=== PATIENT | male | born 1935 | race Caucasian/White ===

== ENCOUNTER 2016-12-16 10:44 | Inpatient (IN) | payer MEDICARE, BC ==
[~2016-12-16] VITALS: Ht 172.7 cm; Wt 76.5 kg
[~2016-12-16 10:44] MED LIST: ALLO100T64 PO; AMLO-145 PO; ANAG0.5C; ASPI-535; ATOR10TA65 PO; CHLO25TA13; CHOL20003 PO; CYAN100071 PO; DIGO125T PO; FENO145T25 PO; FOL8 PO; GLYB2.5T PO; LAS20 PO; LEVO50TA83 PO; LOSA100T47 PO; METO100T13 PO; NCN500CCR; PIOG15TA4 PO; PYRI50CA PO; RUXO5TAB PO; [UNRECOGNIZED DRUG - CODE]
[2016-12-16 10:49] VITALS: Ht 172.7 cm; Wt 76.5 kg
[2016-12-16] MEDS ORDERED: ONDANSETRON 4 MG INJ IV STA (11:22)
[2016-12-16] MEDS ORDERED: morphine 4 MG/ML VIAL IV STA (11:22)
[2016-12-16] MEDS ORDERED: SOD CHLORIDE 0.9% 1,000 ML IV STA (11:22)
[2016-12-16 11:50] LABS: ADD SCAN DIFF NO
[2016-12-16 11:55] LABS: ABNORMAL IP MESSAGE 1; HEMATOCRIT 31.7 % (42.0-52.0); HEMOGLOBIN 9.8 g/dl (14.0-18.0); MEAN CORPUSCULAR HEMOGLOBIN 28.7 pg (29.0-33.0); MEAN CORPUSCULAR HGB CONC 30.9 g/dl (32.0-37.0); MEAN PLATELET VOLUME 11.8 fl (7.4-10.4); PLATELET COUNT 322 10^3/UL (140-415); RED BLOOD COUNT 3.41 10^6/ul (4.70-6.10); RED CELL DISTRIBUTION WIDTH 17.2 % (11.5-14.5); WHITE BLOOD COUNT 14.4 10^3/ul (4.8-10.8)
[2016-12-16 12:03] LABS: ALBUMIN 4.5 g/dl (3.3-4.9)
[2016-12-16 12:04] LABS: POTASSIUM 5.3 mmol/L (3.5-5.1)
[2016-12-16 12:06] LABS: ALBUMIN/GLOBULIN RATIO 1.45; BILIRUBIN,INDIRECT 0.1 mg/dl (0-1.1); BILIRUBIN,TOTAL 0.1 mg/dl (0.2-1.3); CREATININE 3.43 mg/dl (0.61-1.24); TOTAL PROTEIN 7.6 g/dl (6.1-8.1)
[2016-12-16] MEDS ORDERED: RUXO5TAB PO (12:54)
[2016-12-16] MEDS ORDERED: CLOP75TA4 PO (12:54)
[2016-12-16] MEDS ORDERED: ATOR20TA38 PO (12:54)
[2016-12-16] MEDS ORDERED: SITA25TA3 PO (12:58)
[2016-12-16] MEDS ORDERED: INSU100C3 SQ (12:58)
[2016-12-16 13:02] LABS: BASOPHIL # 0.3 10^3/ul (0.0-0.1); LYMPHOCYTES # 0.3 10^3/ul (0.8-2.9); MYELOCYTES # 0.3; NEUTROPHIL # 12.7 10^3/ul (1.6-7.5); OVALOCYTES OCCASIONAL; TEAR DROP CELLS OCCASIONAL
[2016-12-16] MEDS ORDERED: DARB10SY IJ (13:03)
[2016-12-16] MEDS ORDERED: NITR0.4T6 SL (13:03)
[2016-12-16] MEDS ORDERED: LEVEM SC (13:03)
--- NOTE | 2016-12-16 14:27 | RADRPT ---
PROCEDURE: CT abdomen and pelvis without contrast. CLINICAL INDICATION: Epigastric pain since last p.m. TECHNIQUE: CT scan of the abdomen and pelvis without contrast was performed on a multislice CT [facility] utilizing axial imaging from the lung bases through the pubis symphysis. The patient was scann ed without intravenous contrast. Sagittal and coronal reformatted images were made. The CTDIvol is 10.31 mGy and the DLP is 617.05 mGycm. One of the following 3 dose reduction techniques were used during this CT examination: automated exp osure control; adjustment of the mA and /or kV according to patient size; or use of iterative recons truciton technique. COMPARISON: Chest CT 07/21/2013 FINDINGS: The lung bases are remarkable for bibasilar discoid atelectasis. A small hiatal hernia is present. T he visualized liver is of normal size and contour. The spleen, pancreas, and bilateral adrenal glan ds are normal. Cholelithiasis is present with the largest gallstone measuring 3 cm in maximum trans verse dimensions. Mild pericholecystic fluid is present and mild abdominal ascites is noted. Recomm end correlation with nuclear medicine height is scanned to further evaluate. No evidence for intra or extrahepatic biliary ductal dilatation is present. The visualized kidneys demonstrate a large right mid pole lesion which measures 4.8 cm AP by 4.4 cm in transverse dimensions most compatible with renal cortical cyst however incompletely evaluated on this noncontrast CT of the abdomen. Consider renal ultrasound to further evaluate. The visualized aorta demonstrates vascular calcifications without aneurysmal dilatation. No evidenc e for pneumoperitoneum is present. The visualized bowel demonstrates mild diverticulosis with mild pericolonic inflammation and fluid a djacent to the left hemicolon and sigmoid colon. Very early acute diverticulitis is not excluded. T he small bowel demonstrates mild small bowel distension measuring a maximum of 3.3 cm. Early or part ial small bowel obstruction may be present and consider follow-up imaging to further evaluate. The The visualized pelvis demonstrates marked distension of the urinary bladder. Mild prostatic enlarge ment is present with a prostate measuring 4.4 cm AP by 4.9 cm in transverse dimensions. Mild pelvic ascites is present.. The surrounding osseous structures are remarkable for laminectomy changes at L2 through L5. Multile brigido severe degenerative endplate and disk desiccation with disk space height loss and vacuum disk ph enomenon is present at the L2-3 through L5-S1 levels. Grade 1 spondylolisthesis of L4 and L5 is pre sent without evidence for spondylolysis.. IMPRESSION: 1. Cholelithiasis with mild pericholecystic fluid which may represent early acute cholecystitis. Co nsider nuclear medicine HIDA Scan to further evaluate. 2. Diffuse small bowel distension with mild abdominal ascites may represent a earlier partial small bowel obstruction and follow-up with additional imaging. 3. Diverticulosis with mild pericolonic fluid and follow for potential mild or early diverticulitis . 4. Mild abdominal and pelvic ascites 5. Status post L2-L5 laminectomy changes with severe degenerative endplate and disk disease and gra de 1 spondylolisthesis of L4 and L5 without spondylolysis. 6. Small hiatal hernia 7. Atherosclerotic vascular disease A call report was made to Dr. Montoya at 12/16/2016 2:19:45 PM following the completion of the examinat ion by the undersigned. RPTAT: HDC .Tari Ferreira MD, MD Date Time Electronically viewed and signed by .Tari Ferreira MD, on 12/16/2016 14:22 .C/
[2016-12-16] MEDS ORDERED: ERTAPENEM SODIUM 1 GM in SOD CHLORIDE 0.9% 100 ML IVPB ONE (15:00)
--- NOTE | 2016-12-16 15:11 | ERA ---
ER Documentation Chief Complaint Date/Time DATE: 12/16/16 TIME: 15:08 Chief Complaint Complains of vomiting HPI This is an 81-year-old male who complains of last night developing some diffuse upper abdominal pain with nausea and vomiting. Vomit has no blood and no bile. No diarrhea. Patient has had a bowel movement. Pain is described as constant and mildly dull but mostly complains of nausea. Says his ate the same food as he did and she is not sick. He has no fever no cough no chest pain or shortness of breath and diaphoresis. He called his primary physician and told him to come into the hospital for evaluation. The patient was seen by Dr. Delgado in in the ER as well ROS All systems reviewed and are negative except as per history of present illness. Medications Home Meds Reported Medications Darbepoetin Magdiel in Polysorbat (Aranesp) 10 Mcg/0.4 Ml Syringe, 5 MCG IJ 3 x a week., SYR 12/16/16 Nitroglycerin* (Nitroglycerin* SL) 0.4 Mg Tab.subl, 0.4 MG SL Q5MIN Y for CHEST PAIN, BOTTLE 12/16/16 Insulin Detemir (Levemir) 100 Unit/1 Ml Vial, 60 UNIT SC DAILY, VIAL 12/16/16 Insulin Aspart (Novolog) 100 Unit/1 Ml Cartridge, 0-12 UNIT SQ sliding scale 12/16/16 Sitagliptin* (Januvia*) 25 Mg Tablet, 25 MG PO DAILY, #30 TAB 12/16/16 Atorvastatin Calcium* (Atorvastatin Calcium*) 20 Mg Tablet, 20 MG PO QHS, #30 TAB 12/16/16 Clopidogrel Bisulfate* (Clopidogrel Bisulfate*) 75 Mg Tablet, 75 MG PO DAILY, # 30 TAB 12/16/16 Ruxolitinib Phosphate (Jakafi) 5 Mg Tablet, 5 MG PO BID, TAB 12/16/16 Metoprolol Succinate* (Toprol XL*) 100 Mg Tab.sr.24h, 100 MG PO DAILY 07/20/13 Digoxin* (Digitek*) 125 Mcg Tablet, 62 MCG PO DAILY 07/20/13 Losartan Potassium* (Cozaar*) 100 Mg Tablet, 100 MG PO DAILY 07/20/13 Amlodipine Besylate* (Amlodipine Besylate*) 5 Mg Tablet, 5 MG PO DAILY 07/20/13 Furosemide (Lasix) 20 Mg Tab, 20 MG PO BID 07/20/13 Allopurinol* (Zyloprim*) 100 Mg Tablet, 100 MG PO TID 07/20/13 Levothyroxine Sodium* (Synthroid*) 50 Mcg Tablet, 50 MCG PO DAILY 07/20/13 Fenofibrate Nanocrystallized* (Tricor*) 145 Mg Tablet, 145 MG PO DAILY 07/20/13 Discontinued Reported Medications Cyanocobalamin (Vitamin B-12) 1,000 Mcg/1 Ml Drops, 1000 MCG PO DAILY 07/20/13 Pyridoxine Hcl* (Vitamin B-6*) 50 Mg Capsule, 100 MG PO DAILY 07/20/13 Folic Acid* (Folic Acid*) 0.8 Mg Tablet, 400 MCG PO DAILY 07/20/13 Cholecalciferol (Vitamin D3) (VITAMIN D-3) 2,000 Unit Capsule, 1000 UNIT PO BID 07/20/13 Pioglitazone Hcl* (Actos*) 15 Mg Tablet, 15 MG PO DAILY 07/20/13 Glyburide* (Diabeta*) 2.5 Mg Tablet, 5 MG PO DAILY 07/20/13 Atorvastatin Calcium (Atorvastatin Calcium) 10 Mg Tab, 10 MG PO DAILY 07/20/13 Ruxolitinib Phosphate (Jakafi) 5 Mg Tablet, 5 MG PO BID 07/20/13 Aspirin Ec (Aspir 81) 81 Mg Tablet. 10/17/10 Darbepoetin Magdiel In Polysorbat (Aranesp) 500 Mcg/Ml Pen.injctr 10/17/10 Anagrelide Hcl* (Anagrelide Hcl*) 0.5 Mg Cap 10/17/10 Chlorthalidone* (Chlorthalidone*) 25 Mg Tablet 10/17/10 Niacin* (Niaspan*) 500 Mg Tablet.sa 10/17/10 Allergies Allergies: Coded Allergies: No Known Allergies (Verified Allergy, Mild, 10/20/10) PMhx/Soc History of Surgery: Yes (SPINAL STENOSIS SURGERY - 2004, CARDIAC BYPASS/STENTS 1993) Anesthesia Reaction: No Hx 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 Disorder: No Hx Respiratory Disorders: No Hx Cardiac Disorders: Yes (CABG IN , STENTS 1999, HTN, HIGH CHOLESTEROL) Hx Psychiatric Problems: No Hx Miscellaneous Medical Probl: Yes (myelofibrosis, vit D deficiency) Hx Alcohol Use: Yes (OCCASIONALLY) Hx Substance Use: No Hx Tobacco Use: Yes Smoking Status: Never smoker FmHx Family History: No coronary disease Physical Exam Vitals Vital Signs Date Time Temp Pulse Resp B/P Pulse Ox O2 Delivery O2 Flow Rate FiO2 12/16/16 10:49 98.2 72 20 135/63 97 Physical Exam Const: Well-developed, well-nourished Head: Atraumatic, normocephalic Eyes: Normal Conjunctiva, PERRLA, EOMI, normal sclera, no nystagmus ENT: Normal External Ears, Nose and Mouth, moist mucus membranes. Neck: Full range of motion. No meningismus, no lymphadenopathy. Resp: Clear to auscultation bilaterally, no wheezing, rhonchi, rales Cardio: Regular rate and rhythm, no murmurs, S1 S2 present Abd: Soft, mild diffuse upper abdominal tenderness, non distended. Normal bowel sounds, no guarding or rebound, no pulsitile abdominal masses or bruits Skin: No petechiae or rashes, no ecchymosis , no maculopapular rash Back: No midline or flank tenderness Ext: No cyanosis, or edema, FROM x 4, normal inspection, neurovascularly intact x 4 Neur: Awake and alert, STR 5/5 x 4, sensation intact x 4, no focal findings, cerebellum intact Psych: Normal Mood and Affect Result Diagram: 12/16/16 1145 12/16/16 1145 Results 24 hrs Laboratory Tests Test 12/16/16 11:45 White Blood Count 14.410^3/ul Red Blood Count 3.4110^6/ul Hemoglobin 9.8g/dl Hematocrit 31.7% Mean Corpuscular Volume 93.0fl Mean Corpuscular Hemoglobin 28.7pg Mean Corpuscular Hemoglobin Concent 30.9g/dl Red Cell Distribution Width 17.2% Platelet Count 04810^3/UL Mean Platelet Volume 11.8fl Neutrophils % 88.0% Band Neutrophils % 2.0% Lymphocytes % 2.0% Basophils % 2.0% Metamyelocytes % 3.0% Myelocytes % 2.0% Promyelocytes % 1.0% Neutrophils # 12.710^3/ul Lymphocytes # 0.310^3/ul Basophils # 0.310^3/ul Metamyelocytes # 0.4 Myelocytes # 0.3 Promyelocytes # 0.1 Differential Comment MANUAL DIFF Tear Drop Cells OCCASIONAL Ovalocytes OCCASIONAL Sodium Level 138mmol/L Potassium Level 5.3mmol/L Chloride Level 96mmol/L Carbon Dioxide Level 29mmol/L Anion Gap 18 Blood Urea Nitrogen 74mg/dl Creatinine 3.43mg/dl Glucose Level 277mg/dl Calcium Level 11.0mg/dl Total Bilirubin 0.1mg/dl Direct Bilirubin 0.00mg/dl Indirect Bilirubin 0.1mg/dl Aspartate Amino Transf (AST/SGOT) 46IU/L Alanine Aminotransferase (ALT/SGPT) 29IU/L Alkaline Phosphatase 29IU/L Total Protein 7.6g/dl Albumin 4.5g/dl Globulin 3.10g/dl Albumin/Globulin Ratio 1.45 Lipase 493U/L Current Medications Medications (Trade) Dose Ordered Sig/Lamont Route PRN Reason Start Time Stop Time Status Last Admin Dose Admin Sodium Chloride (NS) 1,000 ml @ 1,000 mls/hr Q1H STAT IV 12/16/16 11:22 12/16/16 12:21 DC 12/16/16 11:51 Morphine Sulfate (morphine) 4 mg ONCE STAT IV 12/16/16 11:22 12/16/16 11:26 DC 12/16/16 11:52 Ondansetron HCl 4 mg 4 mg ONCE STAT IV 12/16/16 11:22 12/16/16 11:26 DC 12/16/16 11:51 Ertapenem/Sodium Chloride (Invanz/NS) 100 ml @ 200 mls/hr ONCE ONCE IVPB 12/16/16 15:00 12/16/16 15:29 Procedures/MDM PROCEDURE: CT abdomen and pelvis without contrast. CLINICAL INDICATION: Epigastric pain since last p.m. TECHNIQUE: CT scan of the abdomen and pelvis without contrast was performed on a multislice CT scanner utilizing axial imaging from the lung bases through the pubis symphysis. The patient was scanned without intravenous contrast. Sagittal and coronal reformatted images were made. The CTDIvol is 10.31 mGy and the DLP is 617.05 mGycm. One of the following 3 dose reduction techniques were used during this CT examination: automated exposure control; adjustment of the mA and /or kV according to patient size; or use of iterative reconstruciton technique. COMPARISON: Chest CT 07/21/2013 FINDINGS: The lung bases are remarkable for bibasilar discoid atelectasis. A small hiatal hernia is present. The visualized liver is of normal size and contour. The spleen, pancreas, and bilateral adrenal glands are normal. Cholelithiasis is present with the largest gallstone measuring 3 cm in maximum transverse dimensions. Mild pericholecystic fluid is present and mild abdominal ascites is noted. Recommend correlation with nuclear medicine height is scanned to further evaluate. No evidence for intra or extrahepatic biliary ductal dilatation is present. The visualized kidneys demonstrate a large right mid pole lesion which measures 4.8 cm AP by 4.4 cm in transverse dimensions most compatible with renal cortical cyst however incompletely evaluated on this noncontrast CT of the abdomen. Consider renal ultrasound to further evaluate. The visualized aorta demonstrates vascular calcifications without aneurysmal dilatation. No evidence for pneumoperitoneum is present. The visualized bowel demonstrates mild diverticulosis with mild pericolonic inflammation and fluid adjacent to the left hemicolon and sigmoid colon. Very early acute diverticulitis is not excluded. The small bowel demonstrates mild small bowel distension measuring a maximum of 3.3 cm. Early or partial small bowel obstruction may be present and consider follow-up imaging to further evaluate. The The visualized pelvis demonstrates marked distension of the urinary bladder. Mild prostatic enlargement is present with a prostate measuring 4.4 cm AP by 4.9 cm in transverse dimensions. Mild pelvic ascites is present.. The surrounding osseous structures are remarkable for laminectomy changes at L2 through L5. Multilevel severe degenerative endplate and disk desiccation with disk space height loss and vacuum disk phenomenon is present at the L2-3 through L5-S1 levels. Grade 1 spondylolisthesis of L4 and L5 is present without evidence for spondylolysis.. IMPRESSION: 1. Cholelithiasis with mild pericholecystic fluid which may represent early acute cholecystitis. Consider nuclear medicine HIDA Scan to further evaluate. 2. Diffuse small bowel distension with mild abdominal ascites may represent a earlier partial small bowel obstruction and follow-up with additional imaging. 3. Diverticulosis with mild pericolonic fluid and follow for potential mild or early diverticulitis. 4. Mild abdominal and pelvic ascites 5. Status post L2-L5 laminectomy changes with severe degenerative endplate and disk disease and grade 1 spondylolisthesis of L4 and L5 without spondylolysis. 6. Small hiatal hernia 7. Atherosclerotic vascular disease A call report was made to Dr. Montoya at 12/16/2016 2:19:45 PM following the completion of the examination by the undersigned. RPTAT: HDC .Tari Ferreira MD, MD Date Time Electronically viewed and signed by .Tari Ferreira MD, MD on 12/16/2016 14: 22 .C/ CC: MACIEL MAGAÑA DO Patient has chronic anemia. Creatinine is near baseline at 3.4 We will order sonogram a right upper quadrant to rule out cholecystitis. I have consulted surgery. Will admit to Dr. Lay in spoke w surg. dr malone . will get hida and gb sono Departure Diagnosis: Primary Impression: Small bowel obstruction Additional Impression: Diverticulitis Qualified Code: K57.32 - Diverticulitis of large intestine without perforation or abscess without bleeding Condition: Stable MACIEL MAGAÑA DO Dec 16, 2016 15:11
--- NOTE | 2016-12-16 15:29 | RADRPT ---
PROCEDURE: Right upper quadrant abdominal ultrasound. CLINICAL INDICATION: Abdominal pain TECHNIQUE: Gutierrez scale and color doppler ultrasound images of the right upper quadrant. COMPARISON: Abdominal ultrasound 07/21/2013, CT abdomen pelvis 12/16/2016 FINDINGS: Pancreas: Visualized portions appear of normal echogenicity, no focal lesions. Liver: Morphology: Normal in size and contour. Echogenicity: Increased echogenicity of the liver parenchyma suggestive of hepatic steatosis. Focal lesions: A focal area of probable regional sparing is noted. No definite masses are seen. Main portal vein: Patent with hepatopetal flow. Biliary System: Mild gallbladder wall thickening is present measuring 4 mm which is a nonspecific finding in the pre sence of ascites. Multiple shadowing gallstones are present within the gallbladder. No intrahepatic biliary dilatation. Common bile duct measures 2.3 mm in maximal dimension. Kidneys: Right 10.5 cm in length. Right renal cortical thickness is preserved. Normal echogenicity. No hydronephrosis. No renal calculi. 4.5 cm cyst noted in the upper pole. Minimal perihepatic ascites. IMPRESSION: Multiple gallstones again identified within the gallbladder. Normal caliber intrahepatic and extrah epatic biliary system. Mild perihepatic ascites. Mild gallbladder wall thickening measuring up to 4 mm which is nonspecific in the presence of ascite s. Possibly secondary to hepatic dysfunction versus thickening versus early changes of cholecystiti s. HIDA scan can be obtained if clinical concern for cholecystitis. Focal area of relative hypo echogenicity within the right lobe of the liver likely represents an are a of focal sparing of otherwise diffuse fatty infiltration. RPTAT: AADD .Juan Jose Johns MD, MD Date Time Electronically viewed and signed by .Juan Jose Johns MD, on 12/16/2016 15:29 .B/
[2016-12-16 15:30] VITALS: TEMP 97.7
[2016-12-16] MEDS ORDERED: NACL 0.9% 3 ML SYG IV SCH ×4 (15:30→16:00)
[2016-12-16] MEDS ORDERED: SOD CHLORIDE 0.9% 1,000 ML IV SCH ×2 (15:32→15:37)
[2016-12-16] MEDS ORDERED: ONDANSETRON 4 MG INJ IV PRN ×2 (16:00)
[2016-12-16] MEDS ORDERED: ACETAMINOPHEN 325 MG TAB PO PRN ×2 (16:00)
[2016-12-16] MEDS ORDERED: HYDROCODONE/APAP (5/325) TAB PO PRN ×2 (16:00)
[2016-12-16] MEDS ORDERED: BISACODYL 10 MG SUPP PR PRN (16:00)
[2016-12-16] MEDS ORDERED: DIGOXIN 0.125 MG TAB PO ONE (16:00)
[2016-12-16] MEDS ORDERED: DOCUSATE SODIUM 100 MG CAP PO PRN (16:00)
[2016-12-16] MEDS ORDERED: DIGOXIN 0.25 MG TAB PO SCH (16:30)
--- NOTE | 2016-12-16 16:53 | HP ---
Date/Time of Note Date/Time of Note DATE: 12/16/16 TIME: 16:28 Assessment/Plan VTE Prophylaxis VTE Prophylaxis Intervention: heparin, SCD's Lines/Catheters IV Catheter Type (from Nrsg): Peripheral IV Assessment/Plan Assessment/Plan GI #nausea/vomiting/abdominal pain-CT abd/pelvis with signs of early diverticulitis , early cholecystitis and possibly sbo. Clinically this is not very consistent with cholecystitis as LFT, biliary studies normal. Pain not especially characteristic of diverticulitis either but symptoms of both these conditions could be vague early in course. Clinically this may be consistent with SBO. This may also just be gastroenteritis -follow up HIDA results -npo, IVF -appreciate gen surg input although this can likely be managed conservatively at this time -empiric antibiotic coverage: zosyn renally dosed 2.25 q 8 -lactic acid ID #leukocytosis-see discussion above. Unclear etiology. Early diverticulitis vs early cholecystitis vs sbo. This could also be due to stress -follow up blood cultures -ua, urine cultures -empiric zoysn with low threshold to broaden. if improved by tomorrow can narrow -lactic acid Endo #DMII-insulin dependent -will hold off on basal and mealtime insulin at this time as patient is npo -holding januvia for now as well, lipase was elevated although unlikely pancreatitis as lipase not 8x upper limit of normal and no ct findings c/w pancreatitis -moderate intensity sliding scale for now -will monitor bg closely. 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 Will need to be judicious with IVF, will automatically stop continuous fluids 12 hours from this note -security monitor #multivessel CAD -toprol, atorva, plavix #HTN -toprol, norvasc -holding cozaar 100mg qday for now, can be added back as BP starts to climb. #HLD -atorva 20 -holding fenofibrate for now Rheum #gout -allopurinol 100mg po qday Fen/PPX -SCD, HSQ -NPO for now -full code -ambulate with assistance only HPI/ROS Admit Date/Time Admit Date/Time 12/16/2016 Hx of Present Illness 81 y/o male with mmp including CKD IV (baseline cr 3.1-3.4), IDDM (A1c ~7.1), chronic Anemia, icmy (EF~40%), multivessel CAD s/p stenting, HTN, HLD, gout who presented to [facility] ER today around 11 am with 12 hours of nausea/vomiting/ inability to tolerate PO. Patient was in his usual state of health until around 2300 on 12/15/2016. At that time he developed nausea, mild-moderate generalized abdominal pain. He had multiple episodes of nb/nb emesis per his report. reports that there may have been some bilious material in his vomitus. By this morning nausea and abdominal pain had improved however he presented to ER as he was unable to tolerate any PO. Patient denies fevers, chills, diarrhea, constipation, blood in stool, chest pain, sob, cough. He had eaten left over chicken parmesan with pasta and a weight watchers mai dessert before symptoms started. In ER patient was found to have leukocytosis to 14. Lipase slightly elevated ~ 300-400. Hgb near baseline ~10. Cr near baseline of 3.4. CT abd/pelvis was c/f possible early cholecystitis, possible sbo, possible early diverticulitis. Patient was dosed ertapenem x 1, IVF, pain meds, antiemetics. General Surgery was contacted from ER. PMH/Family/Social Past Medical History CKD IV (baseline cr 3.1-3.4), IDDM (A1c ~7.1), chronic Anemia, icmy (EF~40%), multivessel CAD s/p stenting, HTN, HLD, gout Past Surgical History cataracts, coronary stents Family History Significant Family History: no pertinent family hx Social History lives at home with . No active smoking. No recreational drugs. Smoking Status: Never smoker Exam/Review of Systems Vital Signs Vitals Vital Signs Date Time Temp Pulse Resp B/P Pulse Ox O2 Delivery O2 Flow Rate FiO2 12/16/16 15:30 97.7 73 20 121/76 100 Room Air Exam Exam GEN-NAD, alert and oriented to person/place/time/situation HEENT-op clear, dry mucus membranes on initial exam, no scleral icterus. CV-rrr, nml s1/s2, no m/r/g Pulm-CTAB, no w/r/r Abd-soft, mild-moderate tenderness to palpation, diminished bowel sounds. No rebound, no guarding, rovsing negative Ext-no c/c/e Labs Result Diagram: 12/16/16 1145 12/16/16 1145 Medications Medications Current Medications Sodium Chloride (NS) 1,000 ml @ 75 mls/hr [id number] IV ; Start 12/16/16 at 15:37 Ondansetron HCl (Zofran Inj) 4 mg Q6H PRN IV NAUSEA AND/OR VOMITING; Start at 16:00 Acetaminophen (Tylenol Tab) 650 mg Q6H PRN PO PAIN LEVEL 1-3 OR FEVER; Start at 16:00 Acetaminophen/ Hydrocodone Bitart (Rossiter (5/325)) 1 tab Q6H PRN PO MODERATE PAIN LEVEL 4-6; Start 12/16/16 at 16:00 Acetaminophen/ Hydrocodone Bitart (Rossiter (5/325)) 2 tab Q6H PRN PO SEVERE PAIN LEVEL 7-10; Start 12/16/16 at 16:00 Docusate Sodium (Colace) 100 mg Q12H PRN PO CONSTIPATION; Start 12/16/16 at 16: 00 Bisacodyl (Dulcolax Supp) 10 mg DAILY PRN [place] CONSTIPATION; Start 12/16/16 at 16 :00 Heparin Sodium (Porcine) 5000 unit 5,000 unit Q12 SC ; Start 12/16/16 at 21:00 Piperacillin Sod/ Tazobactam Sod (Zosyn 2.25gm/ 50ml (Pmx)) 50 ml @ 100 mls/hr Q8 IVPB ; Start 12/16/16 at 22:00; Status UNV Atorvastatin Calcium (Lipitor) 20 mg DAILY PO ; Start 12/17/16 at 21:00; Status UNV Clopidogrel Bisulfate (plaVIX) 75 mg DAILY PO ; Start 12/17/16 at 09:00; Status UNV Amlodipine Besylate (Norvasc) 5 mg DAILY PO ; Start 12/17/16 at 09:00; Status UNV Allopurinol (Zyloprim) 200 mg DAILY PO ; Start 12/17/16 at 09:00; Status UNV Digoxin (Digoxin) 0.125 mg DAILY PO ; Start 12/17/16 at 09:00; Status UNV Metoprolol Succinate (Toprol Xl) 100 mg DAILY PO ; Start 12/17/16 at 09:00; Status UNV Miscellaneous Information (* Miscellaneous Pharmacy Order) HYPOGLYCEMIA PROTOCOL w... ONCE ONCE XX ; Start 12/16/16 at 16:30; Stop 12/16/16 at 16:31 Miscellaneous Information (* Miscellaneous Pharmacy Order) Discontinue Glyburide , Glipizide,... ONCE ONCE XX ; Start 12/16/16 at 16:30; Stop 12/16/16 at 16:31 Miscellaneous Information (* Miscellaneous Pharmacy Order) Discontinue all previ... ONCE ONCE XX ; Start 12/16/16 at 16:30; Stop 12/16/16 at 16:31 TESSY GONSALEZ MD Dec 16, 2016 16:39
[2016-12-16 18:00] VITALS: BP 139/85; RESP 20
[2016-12-16] MEDS ORDERED: DEXTROSE 50% 50 ML SYRINGE IV PRN ×2 (18:00)
[2016-12-16] MEDS ORDERED: GLUCAGON 1 MG INJ IM PRN (18:00)
[2016-12-16] MEDS ORDERED: GLUCOSE GEL 15 GRAM TUBE BUCCAL PRN (18:00)
[2016-12-16] MEDS ORDERED: GLUCOSE GEL 15 GRAM TUBE PO PRN ×2 (18:00)
[2016-12-16] MEDS ORDERED: INSULIN ASPART [NOVOLOG] 3 ML PEN SC SCH (18:00)
[2016-12-16] MEDS ORDERED: traZODone 50 MG TAB PO PRN (20:30)
[2016-12-16] MEDS: PIPER-TAZO 2.25 GM (PMX) 50 ML IVPB SCH (20:43)
[2016-12-16] MEDS: HEPARIN 5,000 UNIT/0.5 ML VIAL SC SCH (20:48)
[2016-12-16] MEDS ORDERED: ATORVASTATIN 20 MG TAB PO SCH (21:00)
[2016-12-16 22:32] VITALS: BP 138/67; RESP 20
[2016-12-17] MEDS ORDERED: INSULIN ASPART [NOVOLOG] 3 ML PEN SC SCH
[2016-12-17] MEDS: PIPER-TAZO 2.25 GM (PMX) 50 ML IVPB SCH ×4 (03:00→21:31)
[2016-12-17 05:56] LABS: ADD SCAN DIFF NO
[2016-12-17] MEDS: Insulin NOVOLOG SS MODERATE Algorithm(NPO/TPN/ENTERAL FEEDS) SC SCH ×5 (06:00→23:22)
[2016-12-17 06:23] LABS: ABNORMAL IP MESSAGE 1; BASOPHILS % 0.1 % (0.0-2.0); EOSINOPHILS % 0.2 % (0.0-7.0); HEMATOCRIT 29.6 % (42.0-52.0); HEMOGLOBIN 8.9 g/dl (14.0-18.0); LYMPHOCYTES # 0.6 10^3/ul (0.8-2.9); LYMPHOCYTES % 6.1 % (15.0-51.0); MEAN CORPUSCULAR HEMOGLOBIN 28.8 pg (29.0-33.0); MEAN CORPUSCULAR HGB CONC 30.1 g/dl (32.0-37.0); MEAN CORPUSCULAR VOLUME 95.8 fl (82.0-101.0); MEAN PLATELET VOLUME 11.8 fl (7.4-10.4); MONOCYTE # 0.6 10^3/ul (0.3-0.9); MONOCYTES % 6.1 % (0.0-11.0); NEUTROPHIL # 8.3 10^3/ul (1.6-7.5); NEUTROPHILS % 85.7 % (39.0-77.0); NUCLEATED RED BLOOD CELLS% 0.2 /100WBC (0.0-0.0); PLATELET COUNT 272 10^3/UL (140-415); RED BLOOD COUNT 3.09 10^6/ul (4.70-6.10); RED CELL DISTRIBUTION WIDTH 17.6 % (11.5-14.5); WHITE BLOOD COUNT 9.7 10^3/ul (4.8-10.8)
[2016-12-17] MEDS: LEVOTHYROXINE 50 MCG TAB PO SCH (06:34)
[2016-12-17 07:30] VITALS: BP 135/60; RESP 18
[2016-12-17 07:49] LABS: ALBUMIN 3.8 g/dl (3.3-4.9)
[2016-12-17 07:50] LABS: POTASSIUM 4.4 mmol/L (3.5-5.1)
[2016-12-17 07:52] LABS: ALBUMIN/GLOBULIN RATIO 1.31; BILIRUBIN,INDIRECT 0.2 mg/dl (0-1.1); BILIRUBIN,TOTAL 0.2 mg/dl (0.2-1.3); CREATININE 3.11 mg/dl (0.61-1.24); TOTAL PROTEIN 6.7 g/dl (6.1-8.1)
[2016-12-17 07:53] LABS: CALCIUM 10.1 mg/dl (8.4-10.2); MAGNESIUM 1.7 mg/dl (1.7-2.5)
--- NOTE | 2016-12-17 08:14 | PN ---
Date/Time of Note Date/Time of Note DATE: 12/17/16 TIME: 08:10 Assessment/Plan VTE Prophylaxis VTE Prophylaxis Intervention: other Lines/Catheters IV Catheter Type (from Nrsg): Peripheral IV Urinary Cath still in place: No Assessment/Plan Assessment/Plan 1. Abd pain, n and vomiting prob sec to acute cholecystitis, ultz rev and ct rev , doubt sbo, surgery and gi to see, hida pending and repeat kub, labs pending 2. CKD, stable, iv fluids started 3. ASHD, quiescent 4. Gout, asx 5. DM, sugars reasonable for acute illness Subjective 24 Hr Interval Summary Respiratory: No cough, No shortness of breath Cardiovascular: No chest pain, No lightheadedness, No orthopenea Gastrointestinal: other (c/o periumbilical and sl right upper quad pain only when self palpating, no pain supine in bed, abd pain preceded n and vomiting on admit and had no bm 36-48 hrs pre admit) Genitourinary: No no complaints Exam/Review of Systems Vital Signs Vitals Vital Signs Date Time Temp Pulse Resp B/P Pulse Ox O2 Delivery O2 Flow Rate FiO2 12/16/16 22:32 97.9 73 20 138/67 95 12/16/16 15:30 Room Air Intake and Output 12/16/16 12/16/16 12/17/16 15:00 23:00 07:00 Intake Total 1195.37 ml 1100 ml Output Total 150 ml 500 ml Balance 1045.37 ml 600 ml Exam Neck: No jvd Respiratory: clear to auscultation Cardiovascular: regular rate and rhythm, No murmurs/extra sounds Gastrointestinal: bowel sounds (are nl, not distened, no inc liver or spleen and no mass, 1+ right upper quad tend and periumbilical pain) Extremities: No edema (and no calf tend) Results Result Diagram: 12/17/16 0445 12/16/16 1145 Results 24 hrs Laboratory Tests Test 12/16/16 11:45 12/16/16 15:55 12/16/16 18:05 12/17/16 00:06 White Blood Count 14.4 H Red Blood Count 3.41 L Hemoglobin 9.8 L Hematocrit 31.7 L Mean Corpuscular Volume 93.0 Mean Corpuscular Hemoglobin 28.7 L Mean Corpuscular Hemoglobin Concent 30.9 L Red Cell Distribution Width 17.2 H Platelet Count 322 Mean Platelet Volume 11.8 H Neutrophils % 88.0 H Band Neutrophils % 2.0 Lymphocytes % 2.0 L Basophils % 2.0 Metamyelocytes % 3.0 H Myelocytes % 2.0 H Promyelocytes % 1.0 H Neutrophils # 12.7 H Lymphocytes # 0.3 L Basophils # 0.3 H Metamyelocytes # 0.4 Myelocytes # 0.3 Promyelocytes # 0.1 Differential Comment MANUAL DIFF Tear Drop Cells OCCASIONAL Ovalocytes OCCASIONAL Sodium Level 138 Potassium Level 5.3 H Chloride Level 96 L Carbon Dioxide Level 29 Anion Gap 18 H Blood Urea Nitrogen 74 H Creatinine 3.43 H Glucose Level 277 H Calcium Level 11.0 H Total Bilirubin 0.1 L Direct Bilirubin 0.00 Indirect Bilirubin 0.1 Aspartate Amino Transf (AST/SGOT) 46 Alanine Aminotransferase (ALT/SGPT) 29 Alkaline Phosphatase 29 L Total Protein 7.6 Albumin 4.5 Globulin 3.10 Albumin/Globulin Ratio 1.45 Lipase 493 H Lactic Acid Level 1.5 Bedside Glucose 166 129 Test 12/17/16 04:45 12/17/16 06:33 White Blood Count 9.7 # Red Blood Count 3.09 L Hemoglobin 8.9 L Hematocrit 29.6 L Mean Corpuscular Volume 95.8 Mean Corpuscular Hemoglobin 28.8 L Mean Corpuscular Hemoglobin Concent 30.1 L Red Cell Distribution Width 17.6 H Platelet Count 272 Mean Platelet Volume 11.8 H Neutrophils % 85.7 H Lymphocytes % 6.1 L Monocytes % 6.1 Eosinophils % 0.2 Basophils % 0.1 Nucleated Red Blood Cells % 0.2 H Neutrophils # 8.3 H Lymphocytes # 0.6 L Monocytes # 0.6 Eosinophils # 0.0 Basophils # 0.0 Nucleated Red Blood Cells # 0.0 Sodium Level 141 Potassium Level 4.4 Chloride Level 101 Carbon Dioxide Level 29 Anion Gap 15 Blood Urea Nitrogen 64 H Creatinine 3.11 H Glucose Level 164 # Calcium Level 10.1 Magnesium Level 1.7 Total Bilirubin 0.2 Direct Bilirubin 0.00 Indirect Bilirubin 0.2 Aspartate Amino Transf (AST/SGOT) 42 Alanine Aminotransferase (ALT/SGPT) 31 Alkaline Phosphatase 30 L Total Protein 6.7 Albumin 3.8 Globulin 2.90 Albumin/Globulin Ratio 1.31 Bedside Glucose 172 Medications Medications Current Medications Ondansetron HCl (Zofran Inj) 4 mg Q6H PRN IV NAUSEA AND/OR VOMITING; Start at 16:00 Acetaminophen (Tylenol Tab) 650 mg Q6H PRN PO PAIN LEVEL 1-3 OR FEVER; Start at 16:00 Acetaminophen/ Hydrocodone Bitart ([place] (5/325)) 1 tab Q6H PRN PO MODERATE PAIN LEVEL 4-6; Start 12/16/16 at 16:00 Acetaminophen/ Hydrocodone Bitart ([place] (5/325)) 2 tab Q6H PRN PO SEVERE PAIN LEVEL 7-10; Start 12/16/16 at 16:00 Docusate Sodium (Colace) 100 mg Q12H PRN PO CONSTIPATION; Start 12/16/16 at 16: 00 Bisacodyl (Dulcolax Supp) 10 mg DAILY PRN MD CONSTIPATION; Start 12/16/16 at 16 :00 Heparin Sodium (Porcine) 5000 unit 5,000 unit Q12 SC Last administered on 20:48; Admin Dose 5,000 UNIT; Start 12/16/16 at 21:00 Piperacillin Sod/ Tazobactam Sod (Zosyn 2.25gm/ 50ml (Pmx)) 50 ml @ 100 mls/hr Q8 IVPB Last administered on 12/17/16 07:22; Admin Dose 100 MLS/HR; Start at 20:00 Atorvastatin Calcium (Lipitor) 20 mg DAILY@21 PO Last administered on 20:44; Admin Dose 20 MG; Start 12/16/16 at 21:00 Clopidogrel Bisulfate (plaVIX) 75 mg DAILY PO ; Start 12/17/16 at 09:00 Amlodipine Besylate (Norvasc) 5 mg DAILY PO ; Start 12/17/16 at 09:00 Allopurinol (Zyloprim) 200 mg DAILY PO ; Start 12/17/16 at 09:00 Digoxin (Digoxin) 0.125 mg DAILY PO ; Start 12/17/16 at 09:00 Metoprolol Succinate (Toprol Xl) 100 mg DAILY PO ; Start 12/17/16 at 09:00 Miscellaneous Information 1 ea NOTE XX ; Start 12/16/16 at 18:00 Glucose (Glutose) 15 gm Q15M PRN PO DECREASED GLUCOSE; Start 12/16/16 at 18:00 Glucose (Glutose) 22.5 gm Q15M PRN PO DECREASED GLUCOSE; Start 12/16/16 at 18: 00 Dextrose (D50w Syringe) 25 ml Q15M PRN IV DECREASED GLUCOSE; Start 12/16/16 at 18:00 Dextrose (D50w Syringe) 50 ml Q15M PRN IV DECREASED GLUCOSE; Start 12/16/16 at 18:00 Glucagon (Glucagen) 1 mg Q15M PRN IM DECREASED GLUCOSE; Start 12/16/16 at 18:00 Glucose (Glutose) 15 gm Q15M PRN BUCCAL DECREASED GLUCOSE; Start 12/16/16 at 18 :00 Levothyroxine Sodium (Synthroid) 50 mcg DAILY@06 PO Last administered on 06:34; Admin Dose 50 MCG; Start 12/17/16 at 06:00 Trazodone HCl (Desyrel) 50 mg HS PRN PO INSOMNIA Last administered on 00:09; Admin Dose 50 MG; Start 12/16/16 at 20:30 Insulin Aspart (Novolog Insulin Pen) (Adult SC Insulin - Moder... Q6 SC ; Start 12/17/16 at 00:00 JULIANNE ESTRELLA MD Dec 17, 2016 08:14
[2016-12-17 08:16] LABS: IRON 112 ug/dl (35-150); PHOSPHORUS 4.8 mg/dl (2.5-4.9)
[2016-12-17 08:17] LABS: MAGNESIUM 1.7 mg/dl (1.7-2.5)
[2016-12-17 08:25] LABS: TOTAL IRON BINDING CAPACITY 381 ug/dl (241-421)
[2016-12-17] MEDS ORDERED: CLOPIDOGREL 75 MG TAB PO SCH (09:00)
[2016-12-17] MEDS ORDERED: DIGOXIN 0.125 MG TAB PO SCH (09:00)
[2016-12-17] MEDS ORDERED: METOPROLOL (XL) 100 MG TAB PO ONE (09:00)
[2016-12-17] MEDS ORDERED: AMLODIPINE 5 MG TAB PO SCH (09:00)
[2016-12-17] MEDS ORDERED: METOPROLOL (XL) 100 MG TAB PO SCH (09:00)
[2016-12-17] MEDS ORDERED: ALLOPURINOL 100 MG TAB PO SCH (09:00)
[2016-12-17] MEDS: DEXTROSE 5%-0.45% NACL 1,000 ML IV SCH ×2 (09:17→21:00)
[2016-12-17] MEDS: HEPARIN 5,000 UNIT/0.5 ML VIAL SC SCH ×2 (09:20→19:58)
[2016-12-17 10:03] LABS: INR 1.09; PROTIME 14.1 Sec (12.2-14.2); PT RATIO 1.1
[2016-12-17 10:04] LABS: PARTIAL THROMBOPLASTIN TIME 32.6 Sec (25.0-35.0)
--- NOTE | 2016-12-17 11:04 | RADRPT ---
PROCEDURE: XR Abdomen. CLINICAL INDICATION: 81 old male with abdominal pain. TECHNIQUE: AP abdomen x-ray. COMPARISON: No. FINDINGS: Fecal material is present in the ascending colon and proximal transverse colon. There are mild smal l bowel loops in the left upper abdomen measuring up to 4 cm in diameter. There are degenerative os teophytes in the thoracic and lumbar spine. Laminectomies were performed at L4 and L5. There is a levoscoliosis of the lumbar spine. There are degenerative changes in both hips. There are Monckenb erg vascular calcifications in the internal iliac arteries. IMPRESSION: 1. Reflex ileus. 2. Status post laminectomies at L4-L5. 3. No mechanical bowel obstruction identified. 4. 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 RPTAT:AAJJ Physician Kelvin Date Time Electronically viewed and signed by Livan Florence Physician on 12/17/2016 11:04 ABHI/
--- NOTE | 2016-12-17 11:19 | RADRPT ---
PROCEDURE: XR Chest 2 Views CLINICAL INDICATION: Shortness of breath TECHNIQUE: Frontal and lateral views of the chest were obtained COMPARISON: 07/21/2013 FINDINGS: Stable sternotomy wires and surgical clips. The cardiac size is normal. Aortic vascular calcifications are demonstrated. No pulmonary vascular congestion is demonstrated. Bibasilar atelectasis. The lungs are otherwise clear. No consolidation, effusion, or pneumothorax. Mild degenerative changes of the visualized osseous structures are visualized. IMPRESSION: 1. No acute cardiopulmonary process. Bibasilar atelectasis. 2. Atherosclerosis with stable sternotomy. 3. No significant congestive failure. RPTAT:PP .Kristian Diaz MD, MD Date Time Electronically viewed and signed by .Kristian Diaz MD, on 12/17/2016 11:19 .V/
--- NOTE | 2016-12-17 13:14 | RADRPT ---
Vent Rate: 73 bpm RR Interval: 0 msec NM Interval: 184 msec QRS Duration: 140 msec QT Interval: 418 msec QTC Interval: 460 msec P-R-T [place]: 55 - -57 - 103 degrees Normal sinus rhythm Left axis deviation Left ventricular hypertrophy with QRS widening and repolarization abnormality Abnormal ECG Electronically Signed By: Flo Spencer [id number]
[2016-12-17] MEDS: METOPROLOL 5 MG INJ IV SCH ×2 (13:30→17:50)
[2016-12-17] MEDS: hydrALAzine 20 MG INJ IV SCH ×3 (13:30→23:21)
--- NOTE | 2016-12-17 13:51 | CONS ---
DATE OF ADMISSION: 12/16/2016 DATE OF CONSULTATION: 12/17/2016 TYPE OF CONSULTATION: Gastroenterology. Thank you for having me see this patient. HISTORY OF PRESENT ILLNESS: As you know, he is an 81-year-old gentleman who is admitted to the hosp ital because of abdominal cramping, nausea and vomiting. The patient was in his usual state of heal and went to bed Saturday night. 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 Because of persistent symptoms, he sought attention in the emergency ro om on Saturday. He was admitted to the hospital where he had a number of studies performed, including a CAT scan which showed cholelithiasis, small bowel distention, diverticulosis and a small amount o f ascites. Subsequent to that, he had a gallbladder ultrasound which showed gallstones. He has had a HIDA scan performed which I reviewed with the radiologist, which shows visualization of the gallb ladder. He has had a KUB performed which showed ileus versus small-bowel obstruction. PAST MEDICAL HISTORY: Significant hospitalization for coronary artery bypass graft and appendectomy . ADULT ILLNESSES: Significant for hyperlipidemia, diabetes, hypertension, myelofibrosis colon polyps and diverticulosis. CHILDHOOD: Denies rheumatic fever or scarlet fever. ALLERGIES: NONE KNOWN. INJURIES: None. MEDICATIONS: Currently include: 1. Epogen. 2. Norvasc. 3. Zyloprim. 4. Digoxin. 5. Toprol. 6. Synthroid. 7. Lipitor. 8. Trazodone. 9. Piperacillin. 10. Zofran. 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 He does not smoke or drink alcohol. FAMILY HISTORY: Noncontributory. REVIEW OF SYSTEMS: Negative except as noted above. PHYSICAL EXAMINATION: GENERAL: Shows patient is well-developed, elderly white male in no acute distress. VITAL SIGNS: Temperature 97.8, pulse 83, respirations 18, blood pressure 135/60. SKIN: Clear. HEENT: Negative. LUNGS: Clear to percussion and auscultation. CARDIAC: No murmurs or gallops. ABDOMEN: Soft, mild right lower quadrant tenderness, no rebound, rigidity, normal bowel sounds. RECTAL: Brown stool. LABORATORY DATA: Remarkable for white count 9.7, hemoglobin 8.9, hematocrit 29.6, platelets 272. P rotime INR 1.09. Chemistries remarkable for AST 42, ALT 31, alkaline phosphatase 30, BUN 64, creati nine 3.1. IMPRESSION: Based on the radiologic studies performed so far, the patient most likely either has an ileus or a s mall-bowel obstruction. Given his persistent symptoms and tenderness, it would seem most appropriat e place a nasogastric tube in order to alleviate his symptoms. PLAN: 1. Discussed above with the patient and his . 2. I have ordered nasogastric suction. 3. Empiric proton pump inhibitor. 4. Follow x-rays. 5. Further recommendations to follow above and clinical course. Thank you for having me see this patient. Dictated By: COLEEN CASEY/ROSANGELA Conf#: [id number] DID#: [id number]
--- NOTE | 2016-12-17 14:09 | RADRPT ---
PROCEDURE: HIDA scan CLINICAL INDICATION: 81 -year-old patient with abdominal pain. TECHNIQUE: Following the intravenous injection of 8.2 mCi of Tc-99m mebrofenin, multiple images of the abdomen were obtained up to 60 minutes post injection. COMPARISON: No prior studies. FINDINGS: The liver is promptly visualized, demonstrates homogeneous distribution of radionuclide. There is visualization of the common bile duct, gallbladder and gastrointestinal activity within nor mal time. Photopenic area is visualized within the gallbladder, which likely related to the presence of gallst ones. IMPRESSION: No definite evidence to suggest the presence of common bile or cystic ducts obstruction. RPTAT: HH .Jennifer Negrete MD, MD Date Time Electronically viewed and signed by .Jennifer Negrete MD, on 12/17/2016 14:09 .L/
[2016-12-17] MEDS ORDERED: CLONIDINE 0.1 MG/24 HR PATCH TRANSDERM SCH (14:30)
--- NOTE | 2016-12-17 16:57 | RADRPT ---
PROCEDURE: XR Chest. CLINICAL INDICATION: Nasogastric tube placement. TECHNIQUE: Portable AP semi erect view of the chest was obtained. COMPARISON: 12/17/2016 at 10:17 a.m. FINDINGS: The nasogastric tube is present the distal tip pointing inferiorly to the left in the region of the proximal stomach. The cardiomediastinal silhouette is mildly enlarged. Bibasilar subsegmental atel ectasis is again noted without evidence of lobar pneumonia. There is no evidence for pleural effusi on, pneumothorax or pulmonary vascular congestion. Sternotomy wires are again seen without evidence of acute osseous abnormality. Calcification of the aorta is again visible RPTAT:HJJR IMPRESSION: 1. Successful interval nasogastric tube placement the distal tip within the stomach. 2. Otherwise no interval change from earlier the same day. Physician Rajeev Date Time Electronically viewed and signed by Physician Rajeev on 12/17/2016 16:57 /
[2016-12-17] MEDS: PANTOPRAZOLE 40 MG INJ IV SCH (17:17)
[2016-12-17] MEDS: EPOETIN 10000 UNITS/ML (NON ESRD/NON ONCOLOGY) SC SCH (17:45)
[2016-12-17 20:00] VITALS: BP 149/67; RESP 19
--- NOTE | 2016-12-17 20:01 | CONS ---
[facility] INITIAL INPATIENT CONSULTATION DATE OF CONSULTATION: 12/17/2016 PLACE OF SERVICE: [facility], second floor, [facility]. ASSESSMENT AND PLAN: A very pleasant 81-year-old gentleman with a rather complicated medical history and number of comorbidities including coronary artery disease status post bypass grafting as well as hypertension and diabetes , presenting with several rather minor findings that do not explain the patient' s symptoms. The differential includes gastritis and a viral flu type clinical picture. I do not believe that his gallbladder is the main mobile lounge driver or operator behind his symptoms. He does have significant amount of stones within his gallbladder and with current hospitalization and abdominal symptoms, it would be important to consider perhaps elective cholecystectomy in the future given the chances that the patient will have problems in the future. Normally, I would not recommend a laparoscopic cholecystectomy in this setting, but this is a combination of my experience with this disease as well as the appearance on the images. I do not believe that the patient has a bowel obstruction. Since the NG tube is in place , we can certainly observe the outputs and if the amounts are high, to continue the NG suction, but otherwise it may be possible to discontinue it, perhaps as early as tomorrow. The ascites in the abdominal cavity at this point is nonspecific and can certainly be followed. No indication for acute surgical intervention. I explained all this to the patient in detail (no family present during my discussions with the patient) and answered all his questions to the best of my ability. I believe that the patient understands and agrees with the plans. With above assessment I have recommended the followin. Continue current cares. 2. Consider discontinuation of the NG tube if output is low by tomorrow. 3. Check labs in a.m. 4. Continue discussions with the patient regarding possible need for laparoscopic cholecystectomy in the future. Thank you again for allowing us to participate in the care of this very pleasant gentleman and I am certain his wonderful family. If there are any questions, please call me at [phone]. TOTAL VISIT TIME: 45 minutes of which more than half was spent in [id number] discussion with the patient as well as coordination of care between multiple physicians and providers. UPDATED CLINICAL SUMMARY: The patient is a very pleasant 81-year-old gentleman with comorbidities including BMI 25.6 and prior appendectomy as well as coronary artery disease status post bypass grafting, presenting to [facility] through the emergency department with abdominal pain, nausea, and vomiting. COMORBIDITIES: 1. BMI 25.6. 2. Status post coronary artery bypass graft surgery. 3. Status post appendectomy. 4. Hypertension. 5. Hypothyroidism. 6. Dyslipidemia. 7. Myelofibrosis. 8. Colon polyps. 9. Diverticulosis. 10. Diabetes. DATE OF ADMISSION: 12/16/2016 HISTORY OF PRESENT ILLNESS: The patient is a very pleasant 81-year-old gentleman with above comorbidities whom we were kindly asked counseled regarding management of abdominal pain and symptoms. Three days ago, the patient started having abdominal pain, mainly in the upper and right side of the abdomen, but as well as in the right lower abdomen with discomfort associated with some nausea. He reported having some vomiting as well, but mainly wanted to induce vomiting himself in order to see if he feels better. He does not report any fevers or chills at that time. He was evaluated at the emergency department at [facility] where he was found to have slightly elevated white blood cell count and a CT scan that demonstrated cholelithiasis, some small bowel distention, as well as presence of diverticulosis and ascites. The patient was admitted and a right upper quadrant ultrasound was performed, which demonstrated significant amount of gallstones and perhaps mild gallbladder wall thickening. HIDA scan was also done, which visualizes the gallbladder. There is no free air or pneumatosis. I was kindly asked to consult. ALLERGIES: NO KNOWN DRUG ALLERGIES. MEDICATIONS: 1. Allopurinol. 2. Amlodipine. 3. Atorvastatin. 4. Clopidogrel. 5. Aranesp. 6. Digitek. 7. Tricor. 8. Lasix. 9. NovoLog. 10. Levemir. 11. Synthroid. 12. Cozaar 13. Toprol-XL. 14. Nitroglycerin. 15. Jakafi or ruxolitinib. 16. Januvia. SOCIAL HISTORY: The patient lives with his family. 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 He reports no major smoking, drinking, or intravenous drug use. FAMILY HISTORY: No major medical, surgical, or oncologic problems reported in the family. REVIEW OF SYSTEMS: Other than the above-mentioned, there are no other pertinent positives or pertinent negatives in a complete 14-point review of systems. PHYSICAL EXAMINATION: GENERAL: The patient appears to be a very pleasant gentleman of non- descent, appearing stated age, lying in bed comfortably, and in no acute distress. His BMI is 25.6. VITAL SIGNS: Temperature 97.8, blood pressure 135/60, pulse 83, respiratory rate 18, pulse oximetry 91% on room air. HEENT: Normocephalic and atraumatic. Extraocular muscles and hearing are grossly intact bilaterally and symmetrically. Sclerae are nonicteric. Oral cavity is clear; oral mucosa appeared to be pink and moist. Dentition: poor. NECK: Supple. There is no lymphadenopathy or JVD. There is no submental, submandibular or supraclavicular lymphadenopathy. CHEST: Rises symmetrically with each breath; patient is breathing comfortably. There are no audible wheezes, rales or rhonchi on the gross exam. HEART: Pulse is regular and palpable on the left wrist. Capillary refill was normal. Carotid pulses are palpable bilaterally and symmetrically in the neck. EXTREMITIES: Lower extremities contain no pitting edema around the ankles bilaterally and symmetrically. ABDOMEN: Soft, nontender, and nondistended. There is no evidence of organomegaly, caput medusae, engorged subcutaneous veins, or ascites. There are no peritoneal signs or guarding. NG output is barely any in the tubing. SKIN: Appears to be pink and feels warm to touch. NEUROLOGIC: Awake, alert, and follows commands appropriately. LABORATORY DATA: White blood cell count 9.7, down from 14.4 on admission; platelet count 272. Electrolytes are normal. CO2 of 29, creatinine 3.11. Alkaline phosphatase 30, total bilirubin 0.2, AST 42, ALT 31, albumin 3.8. Amylase 25, lipase 299. INR 1.09. MICROBIOLOGY: Blood cultures on 12/16/2016 negative. IMAGING: Pertinent images were reviewed above. Note that I personally reviewed all the available pertinent images and I agree in general with their overall reported findings. Dictated By: JUMANA MARTINEZ/ROSANGELA Conf#: [id number] DID#: [id number]
[2016-12-17 23:15] VITALS: BP 148/67; PULSE 70
[2016-12-18] MEDS: DEXTROSE 5%-0.45% NACL 1,000 ML IV SCH ×2 (02:28→18:40)
[2016-12-18] MEDS: PANTOPRAZOLE 40 MG INJ IV SCH ×2 (05:08→17:47)
[2016-12-18] MEDS: Insulin NOVOLOG SS MODERATE Algorithm(NPO/TPN/ENTERAL FEEDS) SC SCH ×3 (05:09→17:48)
[2016-12-18] MEDS: hydrALAzine 20 MG INJ IV SCH ×3 (05:09→17:46)
[2016-12-18] MEDS: PIPER-TAZO 2.25 GM (PMX) 50 ML IVPB SCH (05:09)
[2016-12-18] MEDS: LEVOTHYROXINE 50 MCG TAB PO SCH (05:12)
[2016-12-18 05:21] VITALS: BP 144/67; PULSE 75
[2016-12-18 06:41] LABS: ADD SCAN DIFF NO
[2016-12-18 06:56] LABS: ABNORMAL IP MESSAGE 1; BASOPHILS % 0.1 % (0.0-2.0); EOSINOPHILS # 0.1 10^3/ul (0.0-0.5); EOSINOPHILS % 0.9 % (0.0-7.0); HEMATOCRIT 29.3 % (42.0-52.0); HEMOGLOBIN 8.8 g/dl (14.0-18.0); LYMPHOCYTES # 0.4 10^3/ul (0.8-2.9); LYMPHOCYTES % 4.3 % (15.0-51.0); MEAN CORPUSCULAR HEMOGLOBIN 28.4 pg (29.0-33.0); MEAN CORPUSCULAR VOLUME 94.5 fl (82.0-101.0); MEAN PLATELET VOLUME 12.3 fl (7.4-10.4); MONOCYTE # 0.8 10^3/ul (0.3-0.9); NUCLEATED RED BLOOD CELLS% 0.2 /100WBC (0.0-0.0); PLATELET COUNT 234 10^3/UL (140-415); RED CELL DISTRIBUTION WIDTH 17.7 % (11.5-14.5); WHITE BLOOD COUNT 9.4 10^3/ul (4.8-10.8)
[2016-12-18 07:49] LABS: POTASSIUM 3.9 mmol/L (3.5-5.1)
[2016-12-18 07:51] LABS: ALBUMIN/GLOBULIN RATIO 1.33; BILIRUBIN,INDIRECT 0.2 mg/dl (0-1.1); BILIRUBIN,TOTAL 0.2 mg/dl (0.2-1.3); CREATININE 2.9 mg/dl (0.61-1.24)
[2016-12-18 07:52] LABS: CALCIUM 9.8 mg/dl (8.4-10.2)
[2016-12-18 08:10] VITALS: BP 136/64; RESP 20
--- NOTE | 2016-12-18 08:22 | PN ---
Date/Time of Note Date/Time of Note DATE: 12/18/16 TIME: 08:19 Assessment/Plan VTE Prophylaxis VTE Prophylaxis Intervention: other Lines/Catheters IV Catheter Type (from Nrs): Peripheral IV Urinary Cath still in place: No Assessment/Plan Assessment/Plan 1. Resolving SBO, ? cause, dc ng per gi and obtain ugi and sbs as no prior abdominal surg. 2. ASHD, stable. 3. BP controlled. 4. Sugars are reasonable. 5. Anemia, stable. 6. Known CKD and mild acute renal failure resolving with IV fluids. Subjective 24 Hr Interval Summary Respiratory: No cough, No shortness of breath Cardiovascular: No chest pain Gastrointestinal: other (and notes less bloating), No nausea, No vomiting Genitourinary: no complaints Exam/Review of Systems Vital Signs Vitals Vital Signs Date Time Temp Pulse Resp B/P Pulse Ox O2 Delivery O2 Flow Rate FiO2 12/18/16 08:10 98.4 72 20 136/64 95 12/16/16 15:30 Room Air Intake and Output 12/17/16 12/17/16 12/18/16 15:00 23:00 07:00 Intake Total 50 ml 50 ml 930 ml Output Total 250 ml 650 ml Balance 50 ml -200 ml 280 ml Exam Neck: No jvd Respiratory: clear to auscultation Cardiovascular: regular rate and rhythm Gastrointestinal: soft, tender (1+ periumbilical and right upper quad) Extremities: No edema (and no calft tend bilat) Results Result Diagram: 12/18/16 0542 12/18/16 0542 Results 24 hrs Laboratory Tests Test 12/17/16 09:10 12/17/16 13:29 12/17/16 17:16 12/17/16 23:14 Prothrombin Time 14.1 Prothrombin Time Ratio 1.1 INR International Normalized Ratio 1.09 Activated Partial Thromboplast Time 32.6 Bedside Glucose 220 179 184 Test 12/18/16 05:03 12/18/16 05:42 Bedside Glucose 197 White Blood Count 9.4 Red Blood Count 3.10 L Hemoglobin 8.8 L Hematocrit 29.3 L Mean Corpuscular Volume 94.5 Mean Corpuscular Hemoglobin 28.4 L Mean Corpuscular Hemoglobin Concent 30.0 L Red Cell Distribution Width 17.7 H Platelet Count 234 Mean Platelet Volume 12.3 H Neutrophils % 85.0 H Lymphocytes % 4.3 L Monocytes % 8.0 Eosinophils % 0.9 Basophils % 0.1 Nucleated Red Blood Cells % 0.2 H Neutrophils # 8.0 H Lymphocytes # 0.4 L Monocytes # 0.8 Eosinophils # 0.1 Basophils # 0.0 Nucleated Red Blood Cells # 0.0 Sodium Level 137 Potassium Level 3.9 Chloride Level 102 Carbon Dioxide Level 27 Anion Gap 12 Blood Urea Nitrogen 50 H Creatinine 2.90 H Glucose Level 195 Calcium Level 9.8 Total Bilirubin 0.2 Direct Bilirubin 0.00 Indirect Bilirubin 0.2 Aspartate Amino Transf (AST/SGOT) 38 Alanine Aminotransferase (ALT/SGPT) 27 Alkaline Phosphatase 29 L Total Protein 7.0 Albumin 4.0 Globulin 3.00 Albumin/Globulin Ratio 1.33 Medications Medications Current Medications Ondansetron HCl (Zofran Inj) 4 mg Q6H PRN IV NAUSEA AND/OR VOMITING; Start at 16:00 Acetaminophen/ Hydrocodone Bitart ([place] (5/325)) 1 tab Q6H PRN PO MODERATE PAIN LEVEL 4-6; Start 12/16/16 at 16:00 Acetaminophen/ Hydrocodone Bitart ([place] (5/325)) 2 tab Q6H PRN PO SEVERE PAIN LEVEL 7-10; Start 12/16/16 at 16:00 Docusate Sodium (Colace) 100 mg Q12H PRN PO CONSTIPATION; Start 12/16/16 at 16: 00 Bisacodyl (Dulcolax Supp) 10 mg DAILY PRN [place] CONSTIPATION; Start 12/16/16 at 16 :00 Heparin Sodium (Porcine) 5000 unit 5,000 unit Q12 SC Last administered on 19:58; Admin Dose 5,000 UNIT; Start 12/16/16 at 21:00 Piperacillin Sod/ Tazobactam Sod (Zosyn 2.25gm/ 50ml (Pmx)) 50 ml @ 100 mls/hr Q8 IVPB Last administered on 12/18/16 05:09; Admin Dose 100 MLS/HR; Start at 20:00 Miscellaneous Information 1 ea NOTE XX ; Start 12/16/16 at 18:00 Glucose (Glutose) 15 gm Q15M PRN PO DECREASED GLUCOSE; Start 12/16/16 at 18:00 Glucose (Glutose) 22.5 gm Q15M PRN PO DECREASED GLUCOSE; Start 12/16/16 at 18: 00 Dextrose (D50w Syringe) 25 ml Q15M PRN IV DECREASED GLUCOSE; Start 12/16/16 at 18:00 Dextrose (D50w Syringe) 50 ml Q15M PRN IV DECREASED GLUCOSE; Start 12/16/16 at 18:00 Glucagon (Glucagen) 1 mg Q15M PRN IM DECREASED GLUCOSE; Start 12/16/16 at 18:00 Glucose (Glutose) 15 gm Q15M PRN BUCCAL DECREASED GLUCOSE; Start 12/16/16 at 18 :00 Levothyroxine Sodium (Synthroid) 50 mcg DAILY@06 PO Last administered on 06:34; Admin Dose 50 MCG; Start 12/17/16 at 06:00 Insulin Aspart (Adult SC Insulin - Moder... Q6 SC Last administered on 05:09; Admin Dose 4 UNIT; Start 12/17/16 at 00:00 Dextrose/Sodium Chloride (D5-1/2ns) 1,000 ml @ 80 mls/hr [id number] IV Last administered on 12/18/16 02:28; Admin Dose 80 MLS/HR; Start 12/17/16 at 08:30 Epoetin Magdiel (Epogen (Non Esrd/Non Oncology)) 10,000 units MoWeFr@17 SC Last administered on 12/17/16 17:45; Admin Dose 10,000 UNITS; Start 12/17/16 at 17: 00 Pantoprazole (Protonix Iv) 40 mg BID@06,18 IV Last administered on 12/18/16 05 :08; Admin Dose 40 MG; Start 12/17/16 at 18:00 Clonidine HCl (Catapres-Tts 1 Patch) 1 patch Q7D TRANSDERM Last administered on 12/17/16 15:32; Admin Dose 1 PATCH; Start 12/17/16 at 14:30 Hydralazine HCl (Apresoline) 10 mg Q6 IV Last administered on 12/18/16 05:09; Admin Dose 10 MG; Start 12/17/16 at 13:30 JULIANNE ESTRELLA MD Dec 18, 2016 08:22
[2016-12-18 08:49] LABS: MAGNESIUM 1.7 mg/dl (1.7-2.5); PHOSPHORUS 3.4 mg/dl (2.5-4.9)
[2016-12-18] MEDS: HEPARIN 5,000 UNIT/0.5 ML VIAL SC SCH ×2 (09:27→20:02)
[2016-12-18] MEDS ORDERED: MAGNESIUM SULFATE 2 GM/50 ML 50 ML IVPB SCH (10:00)
[2016-12-18] MEDS: POTASSIUM CHLORIDE 50 ML IVPB SCH ×3 (11:57→20:03)
--- NOTE | 2016-12-18 12:33 | CONS ---
Date/Time of Note Date/Time of Note DATE: 12/18/16 TIME: 12:30 Consult Date/Type/Reason Admit Date/Time Dec 16, 2016 at 17:40 Initial Consult Date Type of Consultation: GI Subjective Comfortable Wants to get NG out and eat No abdominal pain Objective Vital Signs Date Time Temp Pulse Resp B/P Pulse Ox O2 Delivery O2 Flow Rate FiO2 12/18/16 08:10 98.4 72 20 136/64 95 12/16/16 15:30 Room Air Cheat: clear to p and a Cardiac: no m, r, r, g Abdomen: soft, non tender, +bs Intake and Output 12/17/16 12/17/16 12/18/16 15:00 23:00 07:00 Intake Total 50 ml 50 ml 930 ml Output Total 250 ml 650 ml Balance 50 ml -200 ml 280 ml Results/Medications Result Diagram: 12/18/16 0542 12/18/16 0542 Results 24 hrs Laboratory Tests Test 12/17/16 13:29 12/17/16 17:16 12/17/16 23:14 12/18/16 05:03 Bedside Glucose 220 179 184 197 Test 12/18/16 05:42 12/18/16 11:10 White Blood Count 9.4 Red Blood Count 3.10 L Hemoglobin 8.8 L Hematocrit 29.3 L Mean Corpuscular Volume 94.5 Mean Corpuscular Hemoglobin 28.4 L Mean Corpuscular Hemoglobin Concent 30.0 L Red Cell Distribution Width 17.7 H Platelet Count 234 Mean Platelet Volume 12.3 H Neutrophils % 85.0 H Lymphocytes % 4.3 L Monocytes % 8.0 Eosinophils % 0.9 Basophils % 0.1 Nucleated Red Blood Cells % 0.2 H Neutrophils # 8.0 H Lymphocytes # 0.4 L Monocytes # 0.8 Eosinophils # 0.1 Basophils # 0.0 Nucleated Red Blood Cells # 0.0 Sodium Level 137 Potassium Level 3.9 Chloride Level 102 Carbon Dioxide Level 27 Anion Gap 12 Blood Urea Nitrogen 50 H Creatinine 2.90 H Glucose Level 195 Calcium Level 9.8 Phosphorus Level 3.4 Magnesium Level 1.7 Total Bilirubin 0.2 Direct Bilirubin 0.00 Indirect Bilirubin 0.2 Aspartate Amino Transf (AST/SGOT) 38 Alanine Aminotransferase (ALT/SGPT) 27 Alkaline Phosphatase 29 L Total Protein 7.0 Albumin 4.0 Globulin 3.00 Albumin/Globulin Ratio 1.33 Digoxin Level 0.6 L Bedside Glucose 232 H Medications Current Medications Ondansetron HCl (Zofran Inj) 4 mg Q6H PRN IV NAUSEA AND/OR VOMITING; Start at 16:00 Acetaminophen/ Hydrocodone Bitart ([place] (5/325)) 1 tab Q6H PRN PO MODERATE PAIN LEVEL 4-6; Start 12/16/16 at 16:00 Acetaminophen/ Hydrocodone Bitart ([place] (5/325)) 2 tab Q6H PRN PO SEVERE PAIN LEVEL 7-10; Start 12/16/16 at 16:00 Docusate Sodium (Colace) 100 mg Q12H PRN PO CONSTIPATION; Start 12/16/16 at 16: 00 Bisacodyl (Dulcolax Supp) 10 mg DAILY PRN [place] CONSTIPATION; Start 12/16/16 at 16 :00 Heparin Sodium (Porcine) (Heparin (5000 Units/0.5 ml)) 5,000 unit Q12 SC Last administered on 12/18/16 09:27; Admin Dose 5,000 UNIT; Start 12/16/16 at 21:00 Miscellaneous Information 1 ea NOTE XX ; Start 12/16/16 at 18:00 Glucose (Glutose) 15 gm Q15M PRN PO DECREASED GLUCOSE; Start 12/16/16 at 18:00 Glucose (Glutose) 22.5 gm Q15M PRN PO DECREASED GLUCOSE; Start 12/16/16 at 18: 00 Dextrose (D50w Syringe) 25 ml Q15M PRN IV DECREASED GLUCOSE; Start 12/16/16 at 18:00 Dextrose (D50w Syringe) 50 ml Q15M PRN IV DECREASED GLUCOSE; Start 12/16/16 at 18:00 Glucagon (Glucagen) 1 mg Q15M PRN IM DECREASED GLUCOSE; Start 12/16/16 at 18:00 Glucose (Glutose) 15 gm Q15M PRN BUCCAL DECREASED GLUCOSE; Start 12/16/16 at 18 :00 Levothyroxine Sodium (Synthroid) 50 mcg DAILY@06 PO Last administered on 06:34; Admin Dose 50 MCG; Start 12/17/16 at 06:00 Insulin Aspart (Adult SC Insulin - Moder... Q6 SC Last administered on 11:14; Admin Dose 6 UNIT; Start 12/17/16 at 00:00 Dextrose/Sodium Chloride (D5-1/2ns) 1,000 ml @ 80 mls/hr [id number] IV Last administered on 12/18/16 02:28; Admin Dose 80 MLS/HR; Start 12/17/16 at 08:30 Epoetin Magdiel (Epogen (Non Esrd/Non Oncology)) 10,000 units MoWeFr@17 SC Last administered on 12/17/16 17:45; Admin Dose 10,000 UNITS; Start 12/17/16 at 17: 00 Pantoprazole (Protonix Iv) 40 mg BID@06,18 IV Last administered on 12/18/16 05 :08; Admin Dose 40 MG; Start 12/17/16 at 18:00 Clonidine HCl (Catapres-Tts 1 Patch) 1 patch Q7D TRANSDERM Last administered on 12/17/16 15:32; Admin Dose 1 PATCH; Start 12/17/16 at 14:30 Hydralazine HCl 10 mg 10 mg Q6 IV Last administered on 12/18/16 05:09; Admin Dose 10 MG; Start 12/17/16 at 13:30 Potassium Chloride (KCl 10 MEQ/50 ML SW) 50 ml @ 50 mls/hr TID IVPB Last administered on 12/18/16 11:57; Admin Dose 50 MLS/HR; Start 12/18/16 at 09:00; Stop 12/18/16 at 22:00 Assessment/Plan Chief Complaint/Hosp Course Impression: 1. Ileus vs partial SBO related to prior abdominal surgery - clinically better Plan: 1. Discussed with Dr. Cooper 2. Pending KUB will d/c ng and advance diet 3. Discussed elective colon polyp fu, but patient reluctant at this time Problems: COLEEN FERRARA MD Dec 18, 2016 12:33
--- NOTE | 2016-12-18 13:41 | RADRPT ---
PROCEDURE: XR Abdomen. CLINICAL INDICATION: Abdomen pain. TECHNIQUE: Two views. AP supine and AP erect. COMPARISON: None. FINDINGS: There is a new nasogastric tube with the tip in the stomach. Surgical clips are overlying the lower left chest. There is dilated small bowel with air-fluid levels in the left upper quadrant and mid abdomen, worse than seen previously with more dilation. Vascular calcifications are present consistent with atherosclerosis. There are no abnormal calcifications overlying the urinary tracts. There are degenerative changes of the spine. There has been prior bilateral laminectomy at L2, L3, L4, and L5. IMPRESSION: 1. Nasogastric tube tip in the stomach. 2. Prior surgery. 3. Small bowel obstruction, worse than seen previously. 4. Atherosclerosis. 5. Degenerative changes of the spine. 6. Prior spine surgery. RPTAT: QQ .Ousmane Diallo MD, MD Date Time Electronically viewed and signed by .Ousmane Diallo MD, MD on 12/18/2016 13:40 .R/
[2016-12-18 19:45] VITALS: BP 130/73; RESP 18
[2016-12-18] MEDS ORDERED: ZOLPIDEM 5 MG TAB PO PRN (21:00)
[2016-12-19 00:14] VITALS: BP 123/72; PULSE 100
[2016-12-19] MEDS: Insulin NOVOLOG SS MODERATE Algorithm(NPO/TPN/ENTERAL FEEDS) SC SCH ×5 (00:17→23:59)
[2016-12-19] MEDS: PANTOPRAZOLE 40 MG INJ IV SCH ×2 (05:32→17:43)
[2016-12-19] MEDS: hydrALAzine 20 MG INJ IV SCH ×5 (05:38→23:57)
[2016-12-19] MEDS: LEVOTHYROXINE 50 MCG TAB PO SCH (05:39)
[2016-12-19 05:40] VITALS: BP 137/72; PULSE 103
[2016-12-19 05:49] LABS: ADD SCAN DIFF NO
[2016-12-19 06:07] LABS: ABNORMAL IP MESSAGE 1; BASOPHILS % 0.2 % (0.0-2.0); EOSINOPHILS % 0.1 % (0.0-7.0); HEMATOCRIT 32.3 % (42.0-52.0); HEMOGLOBIN 10.2 g/dl (14.0-18.0); LYMPHOCYTES # 0.4 10^3/ul (0.8-2.9); LYMPHOCYTES % 2.7 % (15.0-51.0); MEAN CORPUSCULAR HEMOGLOBIN 29.5 pg (29.0-33.0); MEAN CORPUSCULAR HGB CONC 31.6 g/dl (32.0-37.0); MEAN CORPUSCULAR VOLUME 93.4 fl (82.0-101.0); MEAN PLATELET VOLUME 12.4 fl (7.4-10.4); MONOCYTE # 0.9 10^3/ul (0.3-0.9); MONOCYTES % 6.2 % (0.0-11.0); NEUTROPHIL # 12.3 10^3/ul (1.6-7.5); NEUTROPHILS % 89.1 % (39.0-77.0); NUCLEATED RED BLOOD CELLS # 0.1 10^3/ul (0.0-0.0); NUCLEATED RED BLOOD CELLS% 0.7 /100WBC (0.0-0.0); PLATELET COUNT 332 10^3/UL (140-415); RED BLOOD COUNT 3.46 10^6/ul (4.70-6.10); RED CELL DISTRIBUTION WIDTH 17.7 % (11.5-14.5); WHITE BLOOD COUNT 13.8 10^3/ul (4.8-10.8)
[2016-12-19 06:28] LABS: POTASSIUM 3.9 mmol/L (3.5-5.1)
[2016-12-19 06:31] LABS: CREATININE 3.04 mg/dl (0.61-1.24)
[2016-12-19 06:32] LABS: CALCIUM 10.8 mg/dl (8.4-10.2); MAGNESIUM 2.3 mg/dl (1.7-2.5)
[2016-12-19 07:38] VITALS: BP 145/65; RESP 18
--- NOTE | 2016-12-19 08:24 | PN ---
Date/Time of Note Date/Time of Note DATE: 12/19/16 TIME: 08:20 Assessment/Plan VTE Prophylaxis VTE Prophylaxis Intervention: other Lines/Catheters IV Catheter Type (from Nrs): Peripheral IV Urinary Cath still in place: No Assessment/Plan Assessment/Plan 1. Vomiting after ng was discontinued, await sbs, if rec vomiting will replace ng prior to sbs completed, inc WBC (abx were stopped) will cult blood and urine and follow, resume abx if GI thinks important. 2. Renal fx is sl worse sec to vol depletion, iv's increased. 3. 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 4. PT ordered. Subjective 24 Hr Interval Summary Respiratory: No shortness of breath Cardiovascular: No chest pain Gastrointestinal: other (ng "came out" per the pt, has had several episodes of vomiting since and denies abd pain) Genitourinary: no complaints Exam/Review of Systems Vital Signs Vitals Vital Signs Date Time Temp Pulse Resp B/P Pulse Ox O2 Delivery O2 Flow Rate FiO2 12/19/16 07:38 97.4 101 18 145/65 92 12/16/16 15:30 Room Air Intake and Output 12/18/16 12/18/16 12/19/16 15:00 23:00 07:00 Intake Total 100 ml 970 ml 720 ml Output Total 870 ml 1700 ml Balance 100 ml 100 ml -980 ml Exam Neck: No supple Respiratory: clear to auscultation Cardiovascular: regular rate and rhythm Gastrointestinal: other (a bit more distended, few hi pitched bs, no localized tend) Extremities: No edema (and no calf tend) Results Result Diagram: 12/19/16 0505 12/19/16 0505 Results 24 hrs Laboratory Tests Test 12/18/16 11:10 12/19/16 00:11 12/19/16 05:05 12/19/16 05:35 Bedside Glucose 232 H 267 H 271 H White Blood Count 13.8 #H Red Blood Count 3.46 L Hemoglobin 10.2 L Hematocrit 32.3 L Mean Corpuscular Volume 93.4 Mean Corpuscular Hemoglobin 29.5 Mean Corpuscular Hemoglobin Concent 31.6 L Red Cell Distribution Width 17.7 H Platelet Count 332 # Mean Platelet Volume 12.4 H Neutrophils % 89.1 H Lymphocytes % 2.7 L Monocytes % 6.2 Eosinophils % 0.1 Basophils % 0.2 Nucleated Red Blood Cells % 0.7 H Neutrophils # 12.3 H Lymphocytes # 0.4 L Monocytes # 0.9 Eosinophils # 0.0 Basophils # 0.0 Nucleated Red Blood Cells # 0.1 H Sodium Level 142 Potassium Level 3.9 Chloride Level 102 Carbon Dioxide Level 25 Anion Gap 19 #H Blood Urea Nitrogen 43 H Creatinine 3.04 H Glucose Level 294 H Calcium Level 10.8 H Phosphorus Level 4.0 Magnesium Level 2.3 Medications Medications Current Medications Ondansetron HCl (Zofran Inj) 4 mg Q6H PRN IV NAUSEA AND/OR VOMITING; Start at 16:00 Acetaminophen/ Hydrocodone Bitart ([place] (5/325)) 1 tab Q6H PRN PO MODERATE PAIN LEVEL 4-6; Start 12/16/16 at 16:00 Acetaminophen/ Hydrocodone Bitart ([place] (5/325)) 2 tab Q6H PRN PO SEVERE PAIN LEVEL 7-10; Start 12/16/16 at 16:00 Docusate Sodium (Colace) 100 mg Q12H PRN PO CONSTIPATION; Start 12/16/16 at 16: 00 Bisacodyl (Dulcolax Supp) 10 mg DAILY PRN [place] CONSTIPATION; Start 12/16/16 at 16 :00 Heparin Sodium (Porcine) (Heparin (5000 Units/0.5 ml)) 5,000 unit Q12 SC Last administered on 12/18/16t 20:02; Admin Dose 5,000 UNIT; Start 12/16/16 at 21:00 Miscellaneous Information 1 ea NOTE XX ; Start 12/16/16 at 18:00 Glucose (Glutose) 15 gm Q15M PRN PO DECREASED GLUCOSE; Start 12/16/16 at 18:00 Glucose (Glutose) 22.5 gm Q15M PRN PO DECREASED GLUCOSE; Start 12/16/16 at 18: 00 Dextrose (D50w Syringe) 25 ml Q15M PRN IV DECREASED GLUCOSE; Start 12/16/16 at 18:00 Dextrose (D50w Syringe) 50 ml Q15M PRN IV DECREASED GLUCOSE; Start 12/16/16 at 18:00 Glucagon (Glucagen) 1 mg Q15M PRN IM DECREASED GLUCOSE; Start 12/16/16 at 18:00 Glucose (Glutose) 15 gm Q15M PRN BUCCAL DECREASED GLUCOSE; Start 12/16/16 at 18 :00 Insulin Aspart (Adult SC Insulin - Moder... Q6 SC Last administered on 05:43; Admin Dose 8 UNIT; Start 12/17/16 at 00:00 Dextrose/Sodium Chloride (D5-1/2ns) 1,000 ml @ 40 mls/hr Q24H IV Last administered on 12/18/16 18:40; Admin Dose 80 MLS/HR; Start 12/17/16 at 08:30 Epoetin Magdiel (Epogen (Non Esrd/Non Oncology)) 10,000 units MoWeFr@17 SC Last administered on 12/17/16 17:45; Admin Dose 10,000 UNITS; Start 12/17/16 at 17: 00 Pantoprazole (Protonix Iv) 40 mg BID@06,18 IV Last administered on 12/19/16 05 :32; Admin Dose 40 MG; Start 12/17/16 at 18:00 Clonidine HCl (Catapres-Tts 1 Patch) 1 patch Q7D TRANSDERM Last administered on 12/17/16 15:32; Admin Dose 1 PATCH; Start 12/17/16 at 14:30 Hydralazine HCl (Apresoline) 10 mg Q6 IV Last administered on 12/18/16 05:09; Admin Dose 10 MG; Start 12/17/16 at 13:30 Levothyroxine Sodium 25 mcg 25 mcg DAILY@06 PO ; Start 12/20/16 at 06:00 Sodium Chloride (NS) 1,000 ml @ 100 mls/hr Q10H IV ; Start 12/19/16 at 08:30; Status JULIANNE BIRMINGHAM MD Dec 19, 2016 08:24
[2016-12-19] MEDS: SOD CHLORIDE 0.9% 1,000 ML IV SCH ×2 (10:39→17:37)
[2016-12-19] MEDS ORDERED: BISACODYL 30 ML ENEMA PR ONE (12:30)
--- NOTE | 2016-12-19 12:31 | CONS ---
Date/Time of Note Date/Time of Note DATE: 12/19/16 TIME: 12:25 Consult Date/Type/Reason Admit Date/Time Dec 16, 2016 at 17:40 Type of Consultation: GI Subjective SBFT completed. Reviewed with Dr. Diallo - some contrast in colon Patient pulled out NG during night Vomited today Objective Vital Signs Date Time Temp Pulse Resp B/P Pulse Ox O2 Delivery O2 Flow Rate FiO2 12/19/16 07:38 97.4 101 18 145/65 92 12/16/16 15:30 Room Air Chest: clear to P and A Cardiac: no m, r, g Abdomen: soft, non tender, quiet BS Intake and Output 12/18/16 12/18/16 12/19/16 15:00 23:00 07:00 Intake Total 100 ml 970 ml 720 ml Output Total 870 ml 1700 ml Balance 100 ml 100 ml -980 ml Results/Medications Result Diagram: 12/19/16 0505 12/19/16 0505 Results 24 hrs Laboratory Tests Test 12/19/16 00:11 12/19/16 05:05 12/19/16 05:35 12/19/16 11:29 Bedside Glucose 267 H 271 H 246 H White Blood Count 13.8 #H Red Blood Count 3.46 L Hemoglobin 10.2 L Hematocrit 32.3 L Mean Corpuscular Volume 93.4 Mean Corpuscular Hemoglobin 29.5 Mean Corpuscular Hemoglobin Concent 31.6 L Red Cell Distribution Width 17.7 H Platelet Count 332 # Mean Platelet Volume 12.4 H Neutrophils % 89.1 H Lymphocytes % 2.7 L Monocytes % 6.2 Eosinophils % 0.1 Basophils % 0.2 Nucleated Red Blood Cells % 0.7 H Neutrophils # 12.3 H Lymphocytes # 0.4 L Monocytes # 0.9 Eosinophils # 0.0 Basophils # 0.0 Nucleated Red Blood Cells # 0.1 H Sodium Level 142 Potassium Level 3.9 Chloride Level 102 Carbon Dioxide Level 25 Anion Gap 19 #H Blood Urea Nitrogen 43 H Creatinine 3.04 H Glucose Level 294 H Calcium Level 10.8 H Phosphorus Level 4.0 Magnesium Level 2.3 Medications Current Medications Ondansetron HCl (Zofran Inj) 4 mg Q6H PRN IV NAUSEA AND/OR VOMITING; Start at 16:00 Acetaminophen/ Hydrocodone Bitart ([place] (5/325)) 1 tab Q6H PRN PO MODERATE PAIN LEVEL 4-6; Start 12/16/16 at 16:00 Acetaminophen/ Hydrocodone Bitart ([place] (5/325)) 2 tab Q6H PRN PO SEVERE PAIN LEVEL 7-10; Start 12/16/16 at 16:00 Docusate Sodium (Colace) 100 mg Q12H PRN PO CONSTIPATION; Start 12/16/16 at 16: 00 Bisacodyl (Dulcolax Supp) 10 mg DAILY PRN [place] CONSTIPATION; Start 12/16/16 at 16 :00 Heparin Sodium (Porcine) (Heparin (5000 Units/0.5 ml)) 5,000 unit Q12 SC Last administered on 12/18/16 20:02; Admin Dose 5,000 UNIT; Start 12/16/16 at 21:00 Miscellaneous Information 1 ea NOTE XX ; Start 12/16/16 at 18:00 Glucose (Glutose) 15 gm Q15M PRN PO DECREASED GLUCOSE; Start 12/16/16 at 18:00 Glucose (Glutose) 22.5 gm Q15M PRN PO DECREASED GLUCOSE; Start 12/16/16 at 18: 00 Dextrose (D50w Syringe) 25 ml Q15M PRN IV DECREASED GLUCOSE; Start 12/16/16 at 18:00 Dextrose (D50w Syringe) 50 ml Q15M PRN IV DECREASED GLUCOSE; Start 12/16/16 at 18:00 Glucagon (Glucagen) 1 mg Q15M PRN IM DECREASED GLUCOSE; Start 12/16/16 at 18:00 Glucose (Glutose) 15 gm Q15M PRN BUCCAL DECREASED GLUCOSE; Start 12/16/16 at 18 :00 Insulin Aspart (Adult SC Insulin - Moder... Q6 SC Last administered on 05:43; Admin Dose 8 UNIT; Start 12/17/16 at 00:00 Dextrose/Sodium Chloride (D5-1/2ns) 1,000 ml @ 40 mls/hr Q24H IV Last administered on 12/18/16 18:40; Admin Dose 80 MLS/HR; Start 12/17/16 at 08:30 Epoetin Magdiel (Epogen (Non Esrd/Non Oncology)) 10,000 units MoWeFr@17 SC Last administered on 12/17/16 17:45; Admin Dose 10,000 UNITS; Start 12/17/16 at 17: 00 Pantoprazole (Protonix Iv) 40 mg BID@06,18 IV Last administered on 12/19/16 05 :32; Admin Dose 40 MG; Start 12/17/16 at 18:00 Clonidine HCl (Catapres-Tts 1 Patch) 1 patch Q7D TRANSDERM Last administered on 12/17/16 15:32; Admin Dose 1 PATCH; Start 12/17/16 at 14:30 Hydralazine HCl (Apresoline) 10 mg Q6 IV Last administered on 12/18/16 05:09; Admin Dose 10 MG; Start 12/17/16 at 13:30 Levothyroxine Sodium 25 mcg 25 mcg DAILY@06 PO ; Start 12/20/16 at 06:00 Sodium Chloride (NS) 1,000 ml @ 100 mls/hr Q10H IV Last administered on 10:39; Admin Dose 100 MLS/HR; Start 12/19/16 at 08:30 Assessment/Plan Chief Complaint/Hosp Course Impression: 1. Partial SBO related to prior abdominal surgery - note contrast in colon per dr. Diallo Plan: 1. Discussed with Dr. Cooper and Monty 2. Continue NG suction 3. Check KUB for tube position re vomiting despite NG 4. Fleets Enema ordered 5. Ambulate, with temporary clamping of NG 6. Recheck KUB in am Problems: COLEEN FERRARA MD Dec 19, 2016 12:31
[2016-12-19 12:41] VITALS: BP 138/68; PULSE 111
[2016-12-19] MEDS: HEPARIN 5,000 UNIT/0.5 ML VIAL SC SCH ×2 (12:45→21:57)
--- NOTE | 2016-12-19 14:42 | RADRPT ---
PROCEDURE: Small bowel follow-through. CLINICAL INDICATION: Abdomen pain. TECHNIQUE: Water-soluble contrast was administered via the nasogastric tube and several spot and o verhead radiographs of the abdomen were obtained. COMPARISON: Abdomen radiograph dated 12/18/2016. FINDINGS: On the preliminary radiograph, there are sternal wires and mediastinal clips. The nasogastric tube tip is in the stomach. There is dilated bowel in the upper and mid abdomen as seen on the prior renetta in radiographs. There is no small bowel displacement or mass. The small bowel folds are normal. There is partial obstruction or ileus with delayed transit time. Contrast is present in the colon at 17 hours. A delayed image at 22 hours demonstrates residual con trast within the small bowel but most of the contrast in the colon. During the study, the initial images demonstrate the nasogastric tube in position, and removal of th e nasogastric tube, and replacement of the nasogastric tube. The second the last image at 17 hours demonstrates gastric distension with a large amount of water-soluble contrast remaining in the stoma ch. The final image at 22 hours demonstrates the nasogastric tube in satisfactory position within t he stomach and decompression of the stomach. IMPRESSION: 1. Delayed gastric emptying and dilated small bowel consistent with ileus or partial obstruction. 2. Contrast reaches the colon at 17 hours. RPTAT: QQ .Ousmane Diallo MD, Date Time Electronically viewed and signed by .Ousmane Diallo MD, on 12/19/2016 14:42 .R/
--- NOTE | 2016-12-19 15:01 | RADRPT ---
PROCEDURE: XR Abdomen. CLINICAL INDICATION: Check nasogastric tube position. TECHNIQUE: AP supine abdomen x-ray. COMPARISON: 12/18/2016. FINDINGS: The nasogastric tube is in satisfactory position, coiled in the stomach. There are sternal wires an d mediastinal clips. As seen previously, there is dilated small bowel in the upper and mid abdomen. Contrast is present in the distal small bowel and colon from the recent small bowel follow-through. There are degenerative changes of the spine. Vascular calcifications are present consistent with atherosclerosis. IMPRESSION: 1. Nasogastric tube in satisfactory position. RPTAT: QQ .Ousmane Diallo MD, MD Date Time Electronically viewed and signed by .Ousmane Diallo MD, on 12/19/2016 15:01 .R/
[2016-12-19] MEDS: DEXTROSE 5%-0.45% NACL 1,000 ML IV SCH (16:34)
[2016-12-19] MEDS: EPOETIN 10000 UNITS/ML (NON ESRD/NON ONCOLOGY) SC SCH (17:42)
--- NOTE | 2016-12-19 18:24 | PN ---
Date/Time of Note Date/Time of Note DATE: 12/19/16 TIME: 18:21 Assessment/Plan Lines/Catheters IV Catheter Type (from Nrs): Saline Lock Marcum in Place (from Nrs): No Assessment/Plan Assessment/Plan [facility] Progress Note Date of Service: 12/19/16 Today's Impression & Plan: Overall stable with a clinical picture that is clarifying to be more of a partial SBO. No indication for acute surgical intervention at this time. With above assessment, I've recommended the following for today: 1. Recommend continued bowel rest with NG decompression 2. Keep inhouse 3. Check labs Thank you again for your great care of this very pleasant patient and wonderful family. If there are any questions, please feel free to call me at [phone]. TOTAL VISIT TIME: 20 minutes of which more than half was spent in [id number] discussion with the patient, possibly including family, as well as coordination of care between multiple physicians and providers. Disclaimer: Inadvertent spelling or grammatical errors are likely due to EHR/ dictation software use and do not reflect on the overall quality of patient care. Updated Clinical Summary: The patient is a very pleasant 81-year-old gentleman with comorbidities including BMI 25.6 and prior appendectomy as well as coronary artery disease status post bypass grafting, presenting to [facility] through the emergency department with abdominal pain, nausea, and vomiting. COMORBIDITIES: 1. BMI 25.6. 2. Status post coronary artery bypass graft surgery. 3. Status post appendectomy. 4. Hypertension. 5. Hypothyroidism. 6. Dyslipidemia. 7. Myelofibrosis. 8. Colon polyps. 9. Diverticulosis. 10. Diabetes. Subjective: No major events or complaints other that emesis without NG; no abd pain; no n/v/ d; no sob or cp; - flatus; - BM; - activity Objective: Vitals: See below Exam: GENERAL: On exam, the patient was laying in bed and appeared to be comfortable and in no acute distress. ABDOMEN: Soft, nontender and nondistended. NG recently being inserted; previously bilious. There are no peritoneal signs or guarding. SKIN: Skin appears to be pink and feels warm to touch. NEUROLOGIC: Patient is awake, alert, and follows commands appropriately. Exam/Review of Systems Vital Signs Vitals Vital Signs Date Time Temp Pulse Resp B/P Pulse Ox O2 Delivery O2 Flow Rate FiO2 12/19/16 12:41 111 138/68 12/19/16 07:38 97.4 18 92 12/16/16 15:30 Room Air Intake and Output 12/18/16 12/18/16 12/19/16 15:00 23:00 07:00 Intake Total 100 ml 970 ml 720 ml Output Total 870 ml 1700 ml Balance 100 ml 100 ml -980 ml Results Result Diagram: 12/19/16 0505 12/19/16 0505 JUMANA MONTANA M.D. Dec 19, 2016 18:24
[2016-12-19 19:41] LABS: ADD UMIC YES; URINE BILIRUBIN (Dip) NEGATIVE (NEGATIVE); URINE BLOOD (Dip) NEGATIVE (NEGATIVE); URINE COLOR YELLOW (YELLOW); URINE KETONES (Dip) NEGATIVE (NEGATIVE); URINE LEUKOCYTE ESTERASE (Dip) NEGATIVE (NEGATIVE); URINE NITRITE (Dip) NEGATIVE (NEGATIVE); URINE TOTAL PROTEIN (Dip) 2+ (NEGATIVE); URINE UROBILINOGEN (Dip) 0.2 E.U./dL (0.1-1.0)
[2016-12-19 19:56] VITALS: BP 129/59; RESP 16
[2016-12-19 20:03] LABS: SQUAMOUS EPITHELIAL CELL,UR RARE; URINE RBCS NONE SEEN /HPF (0)
[2016-12-20] MEDS: SOD CHLORIDE 0.9% 1,000 ML IV SCH ×2 (03:50→14:29)
[2016-12-20 06:05] LABS: ADD SCAN DIFF NO
[2016-12-20 06:17] LABS: ABNORMAL IP MESSAGE 1; BASOPHILS % 0.2 % (0.0-2.0); EOSINOPHILS % 0.3 % (0.0-7.0); HEMATOCRIT 26.9 % (42.0-52.0); HEMOGLOBIN 8.4 g/dl (14.0-18.0); LYMPHOCYTES # 0.4 10^3/ul (0.8-2.9); LYMPHOCYTES % 3.3 % (15.0-51.0); MEAN CORPUSCULAR HEMOGLOBIN 29.5 pg (29.0-33.0); MEAN CORPUSCULAR HGB CONC 31.2 g/dl (32.0-37.0); MEAN CORPUSCULAR VOLUME 94.4 fl (82.0-101.0); MEAN PLATELET VOLUME 12.1 fl (7.4-10.4); MONOCYTE # 0.9 10^3/ul (0.3-0.9); MONOCYTES % 8.1 % (0.0-11.0); NEUTROPHIL # 9.9 10^3/ul (1.6-7.5); NEUTROPHILS % 86.9 % (39.0-77.0); NUCLEATED RED BLOOD CELLS # 0.1 10^3/ul (0.0-0.0); NUCLEATED RED BLOOD CELLS% 0.4 /100WBC (0.0-0.0); PLATELET COUNT 234 10^3/UL (140-415); RED BLOOD COUNT 2.85 10^6/ul (4.70-6.10); RED CELL DISTRIBUTION WIDTH 17.8 % (11.5-14.5); WHITE BLOOD COUNT 11.3 10^3/ul (4.8-10.8)
[2016-12-20] MEDS: PANTOPRAZOLE 40 MG INJ IV SCH ×2 (06:17→17:20)
[2016-12-20] MEDS: LEVOTHYROXINE 25 MCG TAB PO SCH (06:17)
[2016-12-20] MEDS: hydrALAzine 20 MG INJ IV SCH ×4 (06:17→23:53)
[2016-12-20] MEDS: Insulin NOVOLOG SS MODERATE Algorithm(NPO/TPN/ENTERAL FEEDS) SC SCH ×3 (06:24→17:23)
[2016-12-20 06:33] LABS: ALBUMIN 3.9 g/dl (3.3-4.9); POTASSIUM 3.7 mmol/L (3.5-5.1)
[2016-12-20 06:35] LABS: CREATININE 3.49 mg/dl (0.61-1.24)
[2016-12-20 06:36] LABS: BILIRUBIN,INDIRECT 0.2 mg/dl (0-1.1); BILIRUBIN,TOTAL 0.2 mg/dl (0.2-1.3)
[2016-12-20 06:37] LABS: CALCIUM 9.8 mg/dl (8.4-10.2)
[2016-12-20 06:39] LABS: MAGNESIUM 2.3 mg/dl (1.7-2.5); PHOSPHORUS 3.7 mg/dl (2.5-4.9)
[2016-12-20 07:32] LABS: ALBUMIN/GLOBULIN RATIO 1.25
[2016-12-20 07:55] VITALS: BP 152/72; RESP 18
[2016-12-20] MEDS: HEPARIN 5,000 UNIT/0.5 ML VIAL SC SCH ×2 (08:39→20:05)
--- NOTE | 2016-12-20 09:38 | RADRPT ---
PROCEDURE: XR Abdomen. CLINICAL INDICATION: sbo TECHNIQUE: AP abdomen x-ray. COMPARISON: The abdominal radiograph from 12/19/2016 FINDINGS: The bottom of a redundant loop of nasogastric tube is noted, likely in the stomach. Dilated loops of small bowel are noted measuring up to 4.3 cm in diameter which is stable - to - mil dly increased and dilation compared to the prior abdominal radiograph from yesterday. There are no abnormal calcifications overlying the urinary tracts. Osseous and soft tissue structures are unremarkable. IMPRESSION: Persistently dilated loops of small bowel. The inferior aspect of a redundant loop of enteric tube is again noted, likely in the stomach. These findings were discussed with Dr. Nuñez over the phone on 12/20/2016 at 09:35 hours. RPTAT: EE Physician Branden Date Time Electronically viewed and signed by Maurice Enriquez Physician on 12/20/2016 09:37 /
[2016-12-20] MEDS ORDERED: BISACODYL 30 ML ENEMA PR ONE (11:30)
--- NOTE | 2016-12-20 11:33 | PN ---
Date/Time of Note Date/Time of Note DATE: 12/20/16 TIME: 11:30 Assessment/Plan VTE Prophylaxis VTE Prophylaxis Intervention: SCD's, other Lines/Catheters IV Catheter Type (from Nrs): Peripheral IV Urinary Cath still in place: No Assessment/Plan Assessment/Plan 1. Partial SBO, clinically better, KUB noted, await gi follow up, re---dc ng 2. Sl worsening of renal fx despite i>o and no signifigant post void residual, urine sodium requested as still may be vol depleted 3. Anemia noted, will observe, sec adv renal insuff and underlying myeloprof disorder 4. CHO control not opitmal, lanuts added Subjective 24 Hr Interval Summary Cardiovascular: No chest pain, No orthopenea, No palpitations Gastrointestinal: other (ng tube in place and he has no n,v and passing some gas) Genitourinary: no complaints Exam/Review of Systems Vital Signs Vitals Vital Signs Date Time Temp Pulse Resp B/P Pulse Ox O2 Delivery O2 Flow Rate FiO2 12/20/16 07:55 98.7 100 18 152/72 96 12/16/16 15:30 Room Air Intake and Output 12/19/16 12/19/16 12/20/16 14:59 22:59 06:59 Intake Total 200 ml 1000 ml 2090 ml Output Total 1450 ml 450 ml Balance 200 ml -450 ml 1640 ml Exam Neck: No jvd Respiratory: clear to auscultation Cardiovascular: regular rate and rhythm Gastrointestinal: other (few hi bs present), soft, No tender Extremities: No edema (and no calf tend) Results Result Diagram: 12/20/16 0502 12/20/16 0502 Results 24 hrs Laboratory Tests Test 12/19/16 17:34 12/19/16 18:30 12/19/16 23:55 12/20/16 05:02 Bedside Glucose 236 H 281 H Urine Color YELLOW Urine Clarity CLEAR Urine pH 5.0 Urine Specific [place] >=1.030 H Urine Ketones NEGATIVE Urine Nitrite NEGATIVE Urine Bilirubin NEGATIVE Urine Urobilinogen 0.2 E.U./dL Urine Leukocyte Esterase NEGATIVE Urine Microscopic RBC NONE SEEN Urine Microscopic WBC NONE SEEN Urine Squamous Epithelial Cells RARE Urine Amorphous Urates FEW Urine Hemoglobin NEGATIVE Urine Glucose 0.1% H Urine Total Protein 2+ H White Blood Count 11.3 H Red Blood Count 2.85 L Hemoglobin 8.4 L Hematocrit 26.9 L Mean Corpuscular Volume 94.4 Mean Corpuscular Hemoglobin 29.5 Mean Corpuscular Hemoglobin Concent 31.2 L Red Cell Distribution Width 17.8 H Platelet Count 234 # Mean Platelet Volume 12.1 H Neutrophils % 86.9 H Lymphocytes % 3.3 L Monocytes % 8.1 Eosinophils % 0.3 Basophils % 0.2 Nucleated Red Blood Cells % 0.4 H Neutrophils # 9.9 H Lymphocytes # 0.4 L Monocytes # 0.9 Eosinophils # 0.0 Basophils # 0.0 Nucleated Red Blood Cells # 0.1 H Sodium Level 142 Potassium Level 3.7 Chloride Level 106 Carbon Dioxide Level 25 Anion Gap 15 Blood Urea Nitrogen 51 H Creatinine 3.49 H Glucose Level 238 H Calcium Level 9.8 Phosphorus Level 3.7 Magnesium Level 2.3 Total Bilirubin 0.2 Direct Bilirubin 0.00 Indirect Bilirubin 0.2 Aspartate Amino Transf (AST/SGOT) 38 Alanine Aminotransferase (ALT/SGPT) 35 Alkaline Phosphatase 42 Total Protein 7.0 Albumin 3.9 Globulin 3.10 Albumin/Globulin Ratio 1.25 Test 12/20/16 06:21 12/20/16 11:16 Bedside Glucose 257 H 287 H Medications Medications Current Medications Ondansetron HCl (Zofran Inj) 4 mg Q6H PRN IV NAUSEA AND/OR VOMITING; Start at 16:00 Docusate Sodium (Colace) 100 mg Q12H PRN PO CONSTIPATION; Start 12/16/16 at 16: 00 Bisacodyl (Dulcolax Supp) 10 mg DAILY PRN [place] CONSTIPATION; Start 12/16/16 at 16 :00 Heparin Sodium (Porcine) (Heparin (5000 Units/0.5 ml)) 5,000 unit Q12 SC Last administered on 12/20/16t 08:39; Admin Dose 5,000 UNIT; Start 12/16/16 at 21:00 Miscellaneous Information 1 ea NOTE XX ; Start 12/16/16 at 18:00 Glucose (Glutose) 15 gm Q15M PRN PO DECREASED GLUCOSE; Start 12/16/16 at 18:00 Glucose (Glutose) 22.5 gm Q15M PRN PO DECREASED GLUCOSE; Start 12/16/16 at 18: 00 Dextrose (D50w Syringe) 25 ml Q15M PRN IV DECREASED GLUCOSE; Start 12/16/16 at 18:00 Dextrose (D50w Syringe) 50 ml Q15M PRN IV DECREASED GLUCOSE; Start 12/16/16 at 18:00 Glucagon (Glucagen) 1 mg Q15M PRN IM DECREASED GLUCOSE; Start 12/16/16 at 18:00 Glucose (Glutose) 15 gm Q15M PRN BUCCAL DECREASED GLUCOSE; Start 12/16/16 at 18 :00 Insulin Aspart (Adult SC Insulin - Moder... Q6 SC Last administered on 06:24; Admin Dose 6 UNIT; Start 12/17/16 at 00:00 Dextrose/Sodium Chloride (D5-1/2ns) 1,000 ml @ 75 mls/hr [id number] IV Last administered on 12/19/16 16:34; Admin Dose 40 MLS/HR; Start 12/17/16 at 08:30 Epoetin Magdiel (Epogen (Non Esrd/Non Oncology)) 10,000 units MoWeFr@17 SC Last administered on 12/19/16 17:42; Admin Dose 10,000 UNITS; Start 12/17/16 at 17: 00 Pantoprazole (Protonix Iv) 40 mg BID@06,18 IV Last administered on 12/20/16 06 :17; Admin Dose 40 MG; Start 12/17/16 at 18:00 Clonidine HCl (Catapres-Tts 1 Patch) 1 patch Q7D TRANSDERM Last administered on 12/17/16 15:32; Admin Dose 1 PATCH; Start 12/17/16 at 14:30 Hydralazine HCl (Apresoline) 10 mg Q6 IV Last administered on 12/20/16 06:17; Admin Dose 10 MG; Start 12/17/16 at 13:30 Levothyroxine Sodium 25 mcg 25 mcg DAILY@06 PO Last administered on 12/20/16 06:17; Admin Dose 25 MCG; Start 12/20/16 at 06:00 Sodium Chloride (NS) 1,000 ml @ 100 mls/hr Q10H IV Last administered on 03:50; Admin Dose 100 MLS/HR; Start 12/19/16 at 08:30 Bisacodyl (Fleet Bisacodyl Enema) 30 ml ONCE ONCE [place] ; Start 12/20/16 at 11:30 ; Stop 12/20/16 at 11:31 JULIANNE ESTRELLA MD Dec 20, 2016 11:33
[2016-12-20] MEDS: DEXTROSE 5%-0.45% NACL 1,000 ML IV SCH ×2 (12:37→20:10)
--- NOTE | 2016-12-20 12:47 | CONS ---
Date/Time of Note Date/Time of Note DATE: 12/20/16 TIME: 12:40 Consult Date/Type/Reason Admit Date/Time Dec 16, 2016 at 17:40 Type of Consultation: GI Subjective NG in nose, but position was questionable per radiologist Patient sent to radiology to reposition and repeat KUB No bm since admission Objective Vital Signs Date Time Temp Pulse Resp B/P Pulse Ox O2 Delivery O2 Flow Rate FiO2 12/20/16 07:55 98.7 100 18 152/72 96 12/16/16 15:30 Room Air Abdomen: soft, mild gaseous distention, +bs, seems somewhat more distended than yesterday Intake and Output 12/19/16 12/19/16 12/20/16 15:00 23:00 07:00 Intake Total 200 ml 1000 ml 2090 ml Output Total 1450 ml 450 ml Balance 200 ml -450 ml 1640 ml Results/Medications Result Diagram: 12/20/16 0502 12/20/16 0502 Results 24 hrs Laboratory Tests Test 12/19/16 17:34 12/19/16 18:30 12/19/16 23:55 12/20/16 05:02 Bedside Glucose 236 H 281 H Urine Color YELLOW Urine Clarity CLEAR Urine pH 5.0 Urine Specific [place] >=1.030 H Urine Ketones NEGATIVE Urine Nitrite NEGATIVE Urine Bilirubin NEGATIVE Urine Urobilinogen 0.2 E.U./dL Urine Leukocyte Esterase NEGATIVE Urine Microscopic RBC NONE SEEN Urine Microscopic WBC NONE SEEN Urine Squamous Epithelial Cells RARE Urine Amorphous Urates FEW Urine Hemoglobin NEGATIVE Urine Glucose 0.1% H Urine Total Protein 2+ H White Blood Count 11.3 H Red Blood Count 2.85 L Hemoglobin 8.4 L Hematocrit 26.9 L Mean Corpuscular Volume 94.4 Mean Corpuscular Hemoglobin 29.5 Mean Corpuscular Hemoglobin Concent 31.2 L Red Cell Distribution Width 17.8 H Platelet Count 234 # Mean Platelet Volume 12.1 H Neutrophils % 86.9 H Lymphocytes % 3.3 L Monocytes % 8.1 Eosinophils % 0.3 Basophils % 0.2 Nucleated Red Blood Cells % 0.4 H Neutrophils # 9.9 H Lymphocytes # 0.4 L Monocytes # 0.9 Eosinophils # 0.0 Basophils # 0.0 Nucleated Red Blood Cells # 0.1 H Sodium Level 142 Potassium Level 3.7 Chloride Level 106 Carbon Dioxide Level 25 Anion Gap 15 Blood Urea Nitrogen 51 H Creatinine 3.49 H Glucose Level 238 H Calcium Level 9.8 Phosphorus Level 3.7 Magnesium Level 2.3 Total Bilirubin 0.2 Direct Bilirubin 0.00 Indirect Bilirubin 0.2 Aspartate Amino Transf (AST/SGOT) 38 Alanine Aminotransferase (ALT/SGPT) 35 Alkaline Phosphatase 42 Total Protein 7.0 Albumin 3.9 Globulin 3.10 Albumin/Globulin Ratio 1.25 Test 12/20/16 06:21 12/20/16 11:16 Bedside Glucose 257 H 287 H Medications Current Medications Ondansetron HCl (Zofran Inj) 4 mg Q6H PRN IV NAUSEA AND/OR VOMITING; Start at 16:00 Docusate Sodium (Colace) 100 mg Q12H PRN PO CONSTIPATION; Start 12/16/16 at 16: 00 Bisacodyl (Dulcolax Supp) 10 mg DAILY PRN [place] CONSTIPATION; Start 12/16/16 at 16 :00 Heparin Sodium (Porcine) (Heparin (5000 Units/0.5 ml)) 5,000 unit Q12 SC Last administered on 12/20/16 08:39; Admin Dose 5,000 UNIT; Start 12/16/16 at 21:00 Miscellaneous Information 1 ea NOTE XX ; Start 12/16/16 at 18:00 Glucose (Glutose) 15 gm Q15M PRN PO DECREASED GLUCOSE; Start 12/16/16 at 18:00 Glucose (Glutose) 22.5 gm Q15M PRN PO DECREASED GLUCOSE; Start 12/16/16 at 18: 00 Dextrose (D50w Syringe) 25 ml Q15M PRN IV DECREASED GLUCOSE; Start 12/16/16 at 18:00 Dextrose (D50w Syringe) 50 ml Q15M PRN IV DECREASED GLUCOSE; Start 12/16/16 at 18:00 Glucagon (Glucagen) 1 mg Q15M PRN IM DECREASED GLUCOSE; Start 12/16/16 at 18:00 Glucose (Glutose) 15 gm Q15M PRN BUCCAL DECREASED GLUCOSE; Start 12/16/16 at 18 :00 Insulin Aspart (Adult SC Insulin - Moder... Q6 SC Last administered on 06:24; Admin Dose 6 UNIT; Start 12/17/16 at 00:00 Dextrose/Sodium Chloride (D5-1/2ns) 1,000 ml @ 75 mls/hr [id number] IV Last administered on 12/19/16 16:34; Admin Dose 40 MLS/HR; Start 12/17/16 at 08:30 Epoetin Magdiel (Epogen (Non Esrd/Non Oncology)) 10,000 units MoWeFr@17 SC Last administered on 12/19/16 17:42; Admin Dose 10,000 UNITS; Start 12/17/16 at 17: 00 Pantoprazole (Protonix Iv) 40 mg BID@06,18 IV Last administered on 12/20/16 06 :17; Admin Dose 40 MG; Start 12/17/16 at 18:00 Clonidine HCl (Catapres-Tts 1 Patch) 1 patch Q7D TRANSDERM Last administered on 12/17/16 15:32; Admin Dose 1 PATCH; Start 12/17/16 at 14:30 Hydralazine HCl (Apresoline) 10 mg Q6 IV Last administered on 12/20/16 06:17; Admin Dose 10 MG; Start 12/17/16 at 13:30 Levothyroxine Sodium 25 mcg 25 mcg DAILY@06 PO Last administered on 12/20/16 06:17; Admin Dose 25 MCG; Start 12/20/16 at 06:00 Sodium Chloride (NS) 1,000 ml @ 100 mls/hr Q10H IV Last administered on 03:50; Admin Dose 100 MLS/HR; Start 12/19/16 at 08:30; Stop 12/20/16 at 15: 00 Insulin Glargine 8 unit 8 unit DAILY@20 SC ; Start 12/20/16 at 20:00 Potassium Chloride (KCl 10 MEQ/50 ML SW) 50 ml @ 50 mls/hr TID IVPB ; Start at 13:00; Stop 12/21/16 at 09:59 Morphine Sulfate (morphine) 1 mg Q4H PRN IV PAIN LEVEL 1-5; Start 12/20/16 at 11:30 Assessment/Plan Chief Complaint/Hosp Course Impression: 1. Partial SBO related to prior abdominal surgery - seems worse clinically and on KUB Plan: 1. Discussed with Dr. Cooper 2. Continue NG suction 3. Fleets Enema ordered 4. Ambulate, with temporary clamping of NG 5. Repeat CT as distention worse Problems: COLEEN FERRARA MD Dec 20, 2016 12:47
[2016-12-20] MEDS ORDERED: BARIUM SULF 2% 450 ML BTL (BERRY SMOOTHIE) PO ONE (13:00)
[2016-12-20] MEDS ORDERED: NA PHOSPHATE/BIPHOS 133 ML ENEMA PR ONE (13:00)
--- NOTE | 2016-12-20 13:01 | RADRPT ---
PROCEDURE: XR Abdomen. CLINICAL INDICATION: NG Tube placement atn SBO TECHNIQUE: AP abdomen x-ray. COMPARISON: Abdominal radiograph 12/20/2016 at 05:46 hours FINDINGS: There has been interval repositioning of the NG tube in the stomach. Surgical clips are noted proje cting over the left upper abdominal quadrant. Multiple dilated loops of bowel are noted measuring up to 6.8 cm in diameter in the left lower abdom inal quadrant which appear more dilated than the date on the chest x-ray from earlier this morning w ith a measured up to 4.1 cm in diameter. Previously administered oral contrast is noted in the right lower abdominal quadrant. There are no abnormal calcifications overlying the urinary tracts. Osseous and soft tissue structures are unremarkable. IMPRESSION: Interval repositioning of the nasogastric tube in the stomach. Increased dilatation of small bowel loops to 6.8 cm, compared with up to 4.1 cm on the most recent p rior abdominal radiograph from [address] study of the abdomen and pelvis can be obtained for further evaluation. These findings and recommendation were discussed with Dr. Nuñez over the phone on 12/20/2016 at 12:45 hours. RPTAT: EE Physician Branden Date Time Electronically viewed and signed by Physician Branden on 12/20/2016 13:00 /
--- NOTE | 2016-12-20 13:03 | RADRPT ---
PROCEDURE: Nasogastric tube repositioning CLINICAL INDICATION: Redundant loop of nasogastric tube in the stomach. TECHNIQUE: The indwelling nasogastric tube was pulled back such that the redundant loop seen in it was removed with the tip and proximal side hole the gastric lumen. The nasogastric tube was then af fixed to the nose with tape. COMPARISON: Abdominal radiograph from 12/20/2016 at 05:46 hours. FINDINGS: Redundant loop of nasogastric tube in the stomach. IMPRESSION: Repositioning of the nasogastric tube with removal of a redundant loop in the stomach. These findings were discussed with Dr. Nuñez over the phone on 12/20/2016 at 12:45 hours. RPTAT: EE Physician Branden Date Time Electronically viewed and signed by Maurice Enriquez Physician on 12/20/2016 13:03 /
--- NOTE | 2016-12-20 14:26 | PN ---
Date/Time of Note Date/Time of Note DATE: 12/20/16 TIME: 14:22 Assessment/Plan Lines/Catheters IV Catheter Type (from Nrs): Peripheral IV Marcum in Place (from Nrs): No Assessment/Plan Assessment/Plan [facility] Progress Note Date of Service: 12/20/16 Today's Impression & Plan: Overall stable with partial SBO and appears clinically improved as seen by physical exam, return of flatus, stability of vital signs and improving labs. No indication for acute surgical intervention at this time. With above assessment, I've recommended the following for today: 1. Cont bowel rest with NG decompression, but will likely recommend d/c NG if his clinical improvement continues 2. Keep inhouse 3. Check labs Discussed with Dr. Cooper and Dr. Nuñez. Thank you again for your great care of this very pleasant patient and wonderful family. If there are any questions, please feel free to call me at [phone]. TOTAL VISIT TIME: 20 minutes of which more than half was spent in [id number] discussion with the patient, possibly including family, as well as coordination of care between multiple physicians and providers. Disclaimer: Inadvertent spelling or grammatical errors are likely due to EHR/ dictation software use and do not reflect on the overall quality of patient care. Updated Clinical Summary: The patient is a very pleasant 81-year-old gentleman with comorbidities including BMI 25.6 and prior appendectomy as well as coronary artery disease status post bypass grafting, presenting to [facility] through the emergency department with abdominal pain, nausea, and vomiting. COMORBIDITIES: 1. BMI 25.6. 2. Status post coronary artery bypass graft surgery. 3. Status post appendectomy. 4. Hypertension. 5. Hypothyroidism. 6. Dyslipidemia. 7. Myelofibrosis. 8. Colon polyps. 9. Diverticulosis. 10. Diabetes. Subjective: No major events or complaints other that emesis without NG; no abd pain; no n/v/ d; no sob or cp; + flatus; - BM; + activity Objective: Vitals: See below Exam: GENERAL: On exam, the patient was walking in the hallways with nurse and appeared to be comfortable and in no acute distress. ABDOMEN: Soft, nontender and nondistended. NG clamped; previously bilious. There are no peritoneal signs or guarding. SKIN: Skin appears to be pink and feels warm to touch. NEUROLOGIC: Patient is awake, alert, and follows commands appropriately. Exam/Review of Systems Vital Signs Vitals Vital Signs Date Time Temp Pulse Resp B/P Pulse Ox O2 Delivery O2 Flow Rate FiO2 12/20/16 07:55 98.7 100 18 152/72 96 12/16/16 15:30 Room Air Intake and Output 12/19/16 12/19/16 12/20/16 15:00 23:00 07:00 Intake Total 200 ml 1000 ml 2090 ml Output Total 1450 ml 450 ml Balance 200 ml -450 ml 1640 ml Results Result Diagram: 12/20/16 0502 12/20/16 0502 JUMANA MONTANA M.D. Dec 20, 2016 14:26
[2016-12-20] MEDS: POTASSIUM CHLORIDE 50 ML IVPB SCH ×2 (14:29→20:03)
--- NOTE | 2016-12-20 18:39 | RADRPT ---
PROCEDURE: CT abdomen and pelvis without contrast. CLINICAL INDICATION: Abdominal pain. Concern for bowel obstruction TECHNIQUE: CT scan of the abdomen and pelvis without contrast was performed. Oral contrast media w as utilized Sagittal and coronal reformatted images were obtained from the axial source images. CTDI = 9.92 mGy; DLP = 598.70 mGy-cm COMPARISON: CT 12/16/2016 FINDINGS: Visualized lower thorax: Post thoracotomy changes and mild cardiac enlargement again noted. Calcif ied granulomatous changes and bronchiectasis of the lower lobes again seen. Development of a ground -glass infiltrates involving the posterior right middle lobe and double right greater than left lowe r lobes unable to exclude pneumonitis (series 3 images 1 - 13). There is no evidence for pleural ef fusion. Liver, gallbladder, pancreas and spleen: Low attenuation of the liver suggesting hepatic steatosis with normal liver size and contour. There is no evidence for a liver mass or ductal dilatation. Nu merous calcified gallstones are again visualized without evidence of pericholecystic inflammation. No common bile duct abnormality is demonstrated. The pancreas is unremarkable. The spleen is top n ormal in size. Adrenal glands and genitourinary system: The adrenal glands are normal bilaterally. Bilateral renal cortex thinning suggesting medical renal disease with acquired cysts of the right kidney. Nonobstr ucting right lower pole renal calculi are again demonstrated the largest approximately 6 mm. No lef t renal calculus is demonstrated there is no hydronephrosis. The ureters are unremarkable. No urin aurora bladder abnormality is demonstrated. The prostate gland is mildly enlarged. The visualized scr otum shows small simple right-sided hydrocele. Gastrointestinal system: Interval placement of a nasogastric tube the tip within the distal stomach . Tiny sliding hiatal hernia is again noted. The stomach is contracted around the catheter. Opaci fication with contrast media of the small bowel is demonstrated with improvement in the distension c ompared to the prior examination, some contrast filled loops of mid ileum are seen the findings cons istent with an ileus pattern, the maximum diameter measuring approximately 3.9 cm. There is no ricks sition point to suggest complete obstruction. Contrast media has reached the level of the rectum. T here is no evidence of appendicitis. Diverticular disease predominantly sigmoid colon is present. There is no evidence for colitis or diverticulitis. Peritoneum, retroperitoneum, lymph nodes and vessels: The abdominal aorta is normal in caliber. The re is severe aortic and iliac system atherosclerotic calcification. The inferior vena cava is unrem arkable. There is no evidence for adenopathy or mass. Previously seen perihepatic ascites has reso lved. There is no current evidence of ascites or pneumoperitoneum. Osseous structures and musculoskeletal findings: Diffuse increased attenuation of the osseous struc tures cannot exclude a renal osteodystrophy. Again noted is severe degenerative disk narrowing and v acuum phenomenon at the of /, L3-4, 12/26 at L5-S1. Anterolisthesis of 12/26 is again noted. L aminectomy changes of the L2 to the L5 levels are again identified No muscular abnormality or soft tissue pathology is present. RPTAT:HJJR IMPRESSION: 1. The enteric contrast media administered has reached the rectum with decrease in the small bowel d istension compared to the study of 12/16/2016, the pattern most consistent with an adynamic ileus pr edominately of the ileum but without complete bowel obstruction. 2. Successful interval place of a nasogastric tube the tip within the stomach. 3. Interval resolution of ascites compared to the prior exam. 3. Cholelithiasis again noted without current evidence of cholecystitis. 5. Nonobstructing right lower pole renal calculi, bilateral renal cortex thinning suggesting medica l renal disease and a simple cyst of the right kidney. 6. Mild prostate gland enlargement. 7. Development of subtle ground-glass opacities in the right middle and lower lobes unable to exclu de pneumonitis. 8. 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 9. Postoperative laminectomy changes and severe degenerative disk disease from the L2 level to L5 a gain identified. 10. Severe extensive arteriosclerotic calcification. Physician Rajeev Date Time Electronically viewed and signed by Physician Rajeev on 12/20/2016 18:38 JR/
[2016-12-20] MEDS ORDERED: INSULIN GLARGINE [LANtus] 3 ML PEN SC SCH (20:00)
[2016-12-20 20:27] LABS: PROTEIN URINE 79.9 mg/dl (0.0-9.9); PROTEIN/CREAT RATIO 0.43 RATIO
[2016-12-20 21:09] VITALS: BP 149/67; RESP 20
[2016-12-21] VITALS (62 sets, daily range): BP systolic 74–134; BP diastolic 44–69; PULSE 61–112; RESP 15–33
[2016-12-21] MEDS: Insulin NOVOLOG SS MODERATE Algorithm(NPO/TPN/ENTERAL FEEDS) SC SCH ×4 (00:01→18:12)
[2016-12-21] MEDS: NITROGLYCERIN (SL) 0.4 MG TAB SL PRN ×3 (00:43→01:06)
[2016-12-21] MEDS: hydrALAzine 20 MG INJ IV SCH ×3 (05:39→18:00)
[2016-12-21] MEDS: LEVOTHYROXINE 25 MCG TAB PO SCH (05:40)
[2016-12-21] MEDS: PANTOPRAZOLE 40 MG INJ IV SCH ×2 (05:40→18:15)
[2016-12-21 05:51] LABS: ADD SCAN DIFF NO
[2016-12-21 06:05] LABS: ABNORMAL IP MESSAGE 1; BASOPHILS % 0.2 % (0.0-2.0); EOSINOPHILS # 0.1 10^3/ul (0.0-0.5); EOSINOPHILS % 1.1 % (0.0-7.0); HEMATOCRIT 26.9 % (42.0-52.0); HEMOGLOBIN 8.3 g/dl (14.0-18.0); LYMPHOCYTES # 0.5 10^3/ul (0.8-2.9); LYMPHOCYTES % 4.5 % (15.0-51.0); MEAN CORPUSCULAR HEMOGLOBIN 29.4 pg (29.0-33.0); MEAN CORPUSCULAR HGB CONC 30.9 g/dl (32.0-37.0); MEAN CORPUSCULAR VOLUME 95.4 fl (82.0-101.0); MEAN PLATELET VOLUME 12.7 fl (7.4-10.4); MONOCYTE # 0.9 10^3/ul (0.3-0.9); MONOCYTES % 9.2 % (0.0-11.0); NEUTROPHIL # 8.3 10^3/ul (1.6-7.5); NEUTROPHILS % 82.3 % (39.0-77.0); NUCLEATED RED BLOOD CELLS # 0.1 10^3/ul (0.0-0.0); NUCLEATED RED BLOOD CELLS% 0.7 /100WBC (0.0-0.0); PLATELET COUNT 230 10^3/UL (140-415); RED BLOOD COUNT 2.82 10^6/ul (4.70-6.10); RED CELL DISTRIBUTION WIDTH 18.3 % (11.5-14.5); WHITE BLOOD COUNT 10.1 10^3/ul (4.8-10.8)
[2016-12-21 06:10] LABS: POTASSIUM 4.3 mmol/L (3.5-5.1)
[2016-12-21 06:12] LABS: CREATININE 2.88 mg/dl (0.61-1.24)
[2016-12-21 06:13] LABS: PHOSPHORUS 2.9 mg/dl (2.5-4.9)
[2016-12-21 06:14] LABS: CALCIUM 9.2 mg/dl (8.4-10.2); MAGNESIUM 2.2 mg/dl (1.7-2.5)
[2016-12-21] MEDS ORDERED: AMIODARONE 900 MG INJ ONE (07:00)
[2016-12-21] MEDS ORDERED: AMIODARONE 150 MG INJ ONE (07:00)
[2016-12-21] MEDS ORDERED: LIDOCAINE 100 MG SYRINGE ONE (07:00)
[2016-12-21] MEDS ORDERED: MAGNESIUM SULFATE 1 GM/100 ML D5W IVPB ONE (07:00)
[2016-12-21] MEDS ORDERED: EPINEPHrine 0.1 MG/ML SYG ONE (07:00)
[2016-12-21] MEDS ORDERED: DILTIAZEM 25 MG INJ IV ONE (07:30)
--- NOTE | 2016-12-21 07:35 | RADRPT ---
PROCEDURE: XR Abdomen. CLINICAL INDICATION: sbo TECHNIQUE: AP abdomen x-ray. COMPARISON: Abdominal radiograph from 12/20/[address] abdomen/pelvis from 12/20/2016 FINDINGS: There is markedly decreased dilation of small bowel loops which are not opacified by contrast which measure up to 3 cm in diameter in the left lower quadrant, compared with up to 7 cm in the same loca tion previously. Oral contrast administered prior to the CT abdomen/pelvis from yesterday's no noted to opacify much of the colon which is nondilated. There are no abnormal calcifications overlying the urinary tracts. Osseous and soft tissue structures are unremarkable. IMPRESSION: Decreased distension of small bowel loops with passage of oral contrast into the colon suggests a re solving ileus. RPTAT: EE Physician Branden Date Time Electronically viewed and signed by Physician Branden on 12/21/2016 07:35 /
[2016-12-21] MEDS ORDERED: MIDAZOLAM 1 MG/ML 5 ML INJ IV ONE (08:00)
[2016-12-21] MEDS ORDERED: PROPOFOL 100 ML IV ONE (08:00)
[2016-12-21] MEDS ORDERED: DOPamine-D5W 1.6 MG/ML 250 ML ONE (08:10)
--- NOTE | 2016-12-21 08:29 | CONS ---
Date/Time of Note Date/Time of Note DATE: 12/21/16 TIME: 08:04 Assessment/Plan Assessment/Plan Chief Complaint/Hosp Course Impression: 1) NSTEMI- dynamic ekg changes, pt with elevated troponin, echo pending. has low bp ? if related to post code/sedation vs. cardiogenic shock. will need resuscitation with fluids/pressors and urgent evaluation with lhc/rhc possible IABP placement. 2) chronic systolic heart failure- icm, baseline lvef 40% with known ischemia on old stress in ant and inf/lateral distribution 3) CKD- cr 2.8 to 3.1, high risk for ZHANNA -> progression to iHD 4) SBO- improving, will need meds pr and via ngt Problems: Consultation Date/Type/Reason Admit Date/Time Dec 16, 2016 at 17:40 Date of Consultation: Dec 21, 2016 Type of Consultation: Cardiology Reason for Consultation Cardiac Arrest Referring Provider: JULIANNE ESTRELLA MD Hx of Present Illness 81 y.o. man who presented to [facility] on 12/16 with n/v. Pt treated for SBO and had NGT decompression with improvement. Pt developed chest pain overnight, Troponin was checked and elevated at 2.9. Pt had ekg, my review shows sinus tachy with IVCD, and st depression lateral leads and widened qrs from baseline. Pt per report had improvement in cp, however this am developed irregular rhythm though to be afib. [facility] [employer] called for rhythm change, upon their arrival per report pt became unresponsive and developed VT, CPR started and pt then went into VF. Pt had multiple shocks, epi, amio, lidocaine and was conscious on/off through code. Finally, had ROSC with sinus rhythm and intubated. pt with lower spb 70s- 80s now, sedated unresponsive. discussion held with Dr. Estrella pt's PCP, plan is cont aggressive care, will need LHC/RHC with possible IABP placement. There is high risk for ZHANNA and need for iHD, family, pt aware of risks benefits of procedure including but not limited to heart attack, mi, , kidney injury requiring dialysis, and agree to proceed with procedure. Subjective hx not possible: pt non-verbal, pt critical status, other (sedated unable to assess) Respiratory: No shortness of breath Cardiovascular: No chest pain, No orthopenea, No palpitations Gastrointestinal: other (ng tube in place and he has no n,v and passing some gas) Genitourinary: no complaints Past Medical History Chronic kidney disease (585.9) (N18.9) Congestive heart failure (428.0) (I50.9)- chornic systolic Coronary atherosclerosis (414.00) (I25.10) CABG X3 1994 Stent RCA 1999 Stent RCA 2010 Diabetes mellitus (250.00) (E11.9) Essential hypertension (401.9) (I10) Gout (274.9) (M10.9) Hyperlipidemia (272.4) (E78.5) Hypothyroidism (244.9) (E03.9) Ischemic cardiomyopathy (414.8) (I25.5) Myelofibrosis (289.83) (D75.81) speech difficulty for 5 minutes November 2014.Work up negative .Switched to Plavix from Aspirin. Peripheral neuropathy (356.9) (G62.9) Peripheral vascular disease (443.9) (I73.9) Spinal stenosis (724.00) (M48.00) Transient ischemic attack (435.9) (G45.9) Past Surgical History cabg as above Family History Significant Family History: other (+ CAD) Social History Alcohol Use: none Smoking Status: Former smoker Drug Use: none Exam/Review of Systems Vital Signs Vitals Vital Signs Date Time Temp Pulse Resp B/P Pulse Ox O2 Delivery O2 Flow Rate FiO2 12/21/16 05:52 95 16 134/69 96 Room Air 12/20/16 21:09 97.1 Intake and Output 12/20/16 12/20/16 12/21/16 15:00 23:00 07:00 Intake Total 50 ml 70 ml 600 ml Output Total 500 ml 100 ml Balance -450 ml -30 ml 600 ml Exam Constitutional: other (intubated sedated) Psych: other (unable toassess ) Head: atraumatic, normocephalic Eyes: nl conjunctiva, nl sclera ENMT: nl nasal mucosa & septum Neck: non-tender, supple, No jvd Respiratory: other (coarse anterior breath sounds) Cardiovascular: other (RRR, nl s1s2, ii/vi sysolic LLSB) Gastrointestinal: non-tender, soft Musculoskeletal: nl extremities to inspection Extremities: calf tenderness 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: unresponsive Skin: nl turgor Results Result Diagram: 12/21/16 0540 12/21/16 0540 Results 24 hrs Laboratory Tests Test 12/20/16 11:16 12/20/16 17:13 12/20/16 19:00 12/20/16 20:06 Bedside Glucose 287 H 284 H 223 H Urine Random Creatinine 185.55 Urine Random Sodium 23 L Urine Protein/Creatinine Ratio 0.43 Urine Total Protein 79.9 H Test 12/20/16 23:58 12/21/16 00:49 12/21/16 05:40 12/21/16 05:42 Bedside Glucose 274 H 274 H Troponin I 2.950 *H 4.940 *H White Blood Count 10.1 Red Blood Count 2.82 L Hemoglobin 8.3 L Hematocrit 26.9 L Mean Corpuscular Volume 95.4 Mean Corpuscular Hemoglobin 29.4 Mean Corpuscular Hemoglobin Concent 30.9 L Red Cell Distribution Width 18.3 H Platelet Count 230 Mean Platelet Volume 12.7 H Neutrophils % 82.3 H Lymphocytes % 4.5 L Monocytes % 9.2 Eosinophils % 1.1 Basophils % 0.2 Nucleated Red Blood Cells % 0.7 H Neutrophils # 8.3 H Lymphocytes # 0.5 L Monocytes # 0.9 Eosinophils # 0.1 Basophils # 0.0 Nucleated Red Blood Cells # 0.1 H Sodium Level 141 Potassium Level 4.3 Chloride Level 108 Carbon Dioxide Level 24 Anion Gap 13 Blood Urea Nitrogen 57 H Creatinine 2.88 H Glucose Level 280 H Calcium Level 9.2 Phosphorus Level 2.9 Magnesium Level 2.2 Medications Medications Current Medications Ondansetron HCl (Zofran Inj) 4 mg Q6H PRN IV NAUSEA AND/OR VOMITING; Start at 16:00 Docusate Sodium (Colace) 100 mg Q12H PRN PO CONSTIPATION; Start 12/16/16 at 16: 00 Bisacodyl (Dulcolax Supp) 10 mg DAILY PRN [place] CONSTIPATION; Start 12/16/16 at 16 :00 Heparin Sodium (Porcine) (Heparin (5000 Units/0.5 ml)) 5,000 unit Q12 SC Last administered on 12/20/16t 20:05; Admin Dose 5,000 UNIT; Start 12/16/16 at 21:00 Miscellaneous Information 1 ea NOTE XX ; Start 12/16/16 at 18:00 Glucose (Glutose) 15 gm Q15M PRN PO DECREASED GLUCOSE; Start 12/16/16 at 18:00 Glucose (Glutose) 22.5 gm Q15M PRN PO DECREASED GLUCOSE; Start 12/16/16 at 18: 00 Dextrose (D50w Syringe) 25 ml Q15M PRN IV DECREASED GLUCOSE; Start 12/16/16 at 18:00 Dextrose (D50w Syringe) 50 ml Q15M PRN IV DECREASED GLUCOSE; Start 12/16/16 at 18:00 Glucagon (Glucagen) 1 mg Q15M PRN IM DECREASED GLUCOSE; Start 12/16/16 at 18:00 Glucose (Glutose) 15 gm Q15M PRN BUCCAL DECREASED GLUCOSE; Start 12/16/16 at 18 :00 Insulin Aspart (Adult SC Insulin - Moder... Q6 SC Last administered on 05:55; Admin Dose 8 UNIT; Start 12/17/16 at 00:00 Dextrose/Sodium Chloride (D5-1/2ns) 1,000 ml @ 75 mls/hr [id number] IV Last administered on 12/20/16 20:10; Admin Dose 75 MLS/HR; Start 12/17/16 at 08:30 Epoetin Magdiel (Epogen (Non Esrd/Non Oncology)) 10,000 units MoWeFr@17 SC Last administered on 12/19/16 17:42; Admin Dose 10,000 UNITS; Start 12/17/16 at 17: 00 Pantoprazole (Protonix Iv) 40 mg BID@06,18 IV Last administered on 12/21/16 05 :40; Admin Dose 40 MG; Start 12/17/16 at 18:00 Clonidine HCl (Catapres-Tts 1 Patch) 1 patch Q7D TRANSDERM Last administered on 12/17/16 15:32; Admin Dose 1 PATCH; Start 12/17/16 at 14:30 Hydralazine HCl (Apresoline) 10 mg Q6 IV Last administered on 12/20/16 06:17; Admin Dose 10 MG; Start 12/17/16 at 13:30 Levothyroxine Sodium (Synthroid) 25 mcg DAILY@06 PO Last administered on 05:40; Admin Dose 25 MCG; Start 12/20/16 at 06:00 Insulin Glargine 8 unit 8 unit DAILY@20 SC Last administered on 12/20/16 20:07 ; Admin Dose 8 UNIT; Start 12/20/16 at 20:00 Potassium Chloride (KCl 10 MEQ/50 ML SW) 50 ml @ 50 mls/hr TID IVPB Last administered on 12/20/16 20:03; Admin Dose 50 MLS/HR; Start 12/20/16 at 13:00; Stop 12/21/16 at 09:59 Morphine Sulfate (morphine) 1 mg Q4H PRN IV PAIN LEVEL 1-5; Start 12/20/16 at 11:30 Nitroglycerin (Nitroglycerin (Sl Tab) 0.4 Mg) 1 tab Q5M PRN SL ANGINA Last administered on 12/21/16 01:06; Admin Dose 1 TAB; Start 12/21/16 at 00:30 Midazolam HCl 5 mg 5 mg ONCE ONCE IV ; Start 12/21/16 at 08:00; Stop 12/21/16 at 08:01 Propofol (Diprivan) 100 ml @ 0 mls/hr ONCE ONCE IV ; Start 12/21/16 at 08:00; Stop 12/21/16 at 08:01 Procedures Procedures abd xray report reviewed cxr pending ekgs reviewed repeat now with idioventricular rhythm vs jxn rhythm, ST depression improved. SAMY ROSALES Dec 21, 2016 08:22
[2016-12-21] MEDS ORDERED: DOPamine-D5W 1.6 MG/ML 250 ML IV SCH (08:30)
[2016-12-21] MEDS ORDERED: SOD CHLORIDE 0.9% 500 ML IV ONE (08:30)
[2016-12-21] MEDS ORDERED: NORepinephrine 8MG/250 ML (PMX 250 ML ONE (08:51)
[2016-12-21] MEDS ORDERED: IODIXANOL LOCM 100 ML BTL ONE ×2 (08:55→11:18)
[2016-12-21] MEDS ORDERED: LIDOCAINE 1% (MDV) 20 ML INJ ONE (08:55)
[2016-12-21] MEDS ORDERED: HEPARIN 1000 UNITS/ML 10 ML INJ ONE ×2 (08:55→10:03)
[2016-12-21] MEDS ORDERED: SOD CHLORIDE 0.9% 500 ML ONE ×2 (08:56→11:41)
[2016-12-21] MEDS ORDERED: FENTAnyl 50 MCG/ML VIAL ONE (08:56)
[2016-12-21] MEDS ORDERED: MIDAZOLAM 1 MG/ML 2 ML INJ ONE (08:56)
--- NOTE | 2016-12-21 08:57 | CONS ---
Date/Time of Note Date/Time of Note DATE: 12/21/16 TIME: 08:53 Assessment/Plan Assessment/Plan Additional Assessment/Plan Chest x-ray was reviewed from of this month which is essentially clear. Assessment recommendations; 1. Patient admitted for abdominal pain with interval improvement however developed what appears to be acute TX leading to respiratory failure. 2. History of prior coronary artery disease, hypertension, diabetes, renal insufficiency. Continue current treatment. Switch propofol to Versed. Patient currently getting a fluid bolus. He also is being taken to cardiac manager laboratory for emergent coronary angiography. ABG is pending post intubation as well as chest x-ray. Gnosis is guarded. Consultation Date/Type/Reason Admit Date/Time Dec 16, 2016 at 17:40 Date of Consultation: Dec 21, 2016 Type of Consultation: Pulmonary/critical care Reason for Consultation Pulmonary consultations requested for evaluation and management of respiratory failure, patient status post code and CPR. History presenting; patient is a 78-year-old white male who was admitted on of this month with complaints of abdominal pain nausea vomiting. Upon evaluation CT of the abdomen was done which was essentially unremarkable patient was managed on the medical floor was spotting fairly well and did not require any surgical intervention however a short while ago the patient developed acute chest pain and underwent cardiac arrest requiring CPR and oral intubation. By the time I saw the patient I see the patient is orally intubated , hypotensive requiring dopamine as well as fluid resuscitation. History was obtained from medical records. Past medical history; 1. Patient with a history of chronic anemia. 2. History of renal insufficiency. 3. Prior history of coronary artery disease. 4. Cardio myopathy. 5. Diabetes. 6. Hypothyroidism. 7. History of bilateral cataract surgery. Medications; were reviewed. Allergies; are none. Social history; noncontributory. Family history; patient is lives with his . Occupational history; not available. Review of systems; currently unable to be obtained. General exam; elderly male, orally intubated, sedated. Respiratory: No shortness of breath Cardiovascular: No chest pain, No orthopenea, No palpitations Gastrointestinal: other (ng tube in place and he has no n,v and passing some gas) Genitourinary: no complaints Psychological: other (unable toassess ) Social History Alcohol Use: none Smoking Status: Former smoker Drug Use: none Exam/Review of Systems Vital Signs Vitals Vital Signs Date Time Temp Pulse Resp B/P Pulse Ox O2 Delivery O2 Flow Rate FiO2 12/21/16 08:24 166 12/21/16 05:52 16 134/69 96 Room Air 12/20/16 21:09 97.1 Intake and Output 12/20/16 12/20/16 12/21/16 15:00 23:00 07:00 Intake Total 50 ml 70 ml 600 ml Output Total 500 ml 100 ml Balance -450 ml -30 ml 600 ml Exam HEENT exam; supple neck, no JVD. No lymphadenopathy. Midline trachea. Orally intubated. Has bilateral intraocular lens implants. Patient has fair dentition. No neck masses. No thyromegaly. Chest examination; clear to auscultation bilaterally. S1-S2 audible, no murmurs. Regular rhythm. There is a well-healed sternal scar. Abdomen examination; soft, no organomegaly. Bowel sounds audible. Blackness is inverted. Extremity exam is; no peripheral edema. Pulses are not palpable. HAND II CUTTER examination; patient is sedated. Results Result Diagram: 12/21/16 0540 12/21/16 0540 Results 24 hrs Laboratory Tests Test 12/20/16 11:16 12/20/16 17:13 12/20/16 19:00 12/20/16 20:06 Bedside Glucose 287 H 284 H 223 H Urine Random Creatinine 185.55 Urine Random Sodium 23 L Urine Protein/Creatinine Ratio 0.43 Urine Total Protein 79.9 H Test 12/20/16 23:58 12/21/16 00:49 12/21/16 05:40 12/21/16 05:42 Bedside Glucose 274 H 274 H Troponin I 2.950 *H 4.940 *H White Blood Count 10.1 Red Blood Count 2.82 L Hemoglobin 8.3 L Hematocrit 26.9 L Mean Corpuscular Volume 95.4 Mean Corpuscular Hemoglobin 29.4 Mean Corpuscular Hemoglobin Concent 30.9 L Red Cell Distribution Width 18.3 H Platelet Count 230 Mean Platelet Volume 12.7 H Neutrophils % 82.3 H Lymphocytes % 4.5 L Monocytes % 9.2 Eosinophils % 1.1 Basophils % 0.2 Nucleated Red Blood Cells % 0.7 H Neutrophils # 8.3 H Lymphocytes # 0.5 L Monocytes # 0.9 Eosinophils # 0.1 Basophils # 0.0 Nucleated Red Blood Cells # 0.1 H Sodium Level 141 Potassium Level 4.3 Chloride Level 108 Carbon Dioxide Level 24 Anion Gap 13 Blood Urea Nitrogen 57 H Creatinine 2.88 H Glucose Level 280 H Calcium Level 9.2 Phosphorus Level 2.9 Magnesium Level 2.2 Medications Medications Current Medications Ondansetron HCl (Zofran Inj) 4 mg Q6H PRN IV NAUSEA AND/OR VOMITING; Start at 16:00 Docusate Sodium (Colace) 100 mg Q12H PRN PO CONSTIPATION; Start 12/16/16 at 16: 00 Bisacodyl (Dulcolax Supp) 10 mg DAILY PRN [place] CONSTIPATION; Start 12/16/16 at 16 :00 Heparin Sodium (Porcine) (Heparin (5000 Units/0.5 ml)) 5,000 unit Q12 SC Last administered on 12/20/16 20:05; Admin Dose 5,000 UNIT; Start 12/16/16 at 21:00 Miscellaneous Information 1 ea NOTE XX ; Start 12/16/16 at 18:00 Glucose (Glutose) 15 gm Q15M PRN PO DECREASED GLUCOSE; Start 12/16/16 at 18:00 Glucose (Glutose) 22.5 gm Q15M PRN PO DECREASED GLUCOSE; Start 12/16/16 at 18: 00 Dextrose (D50w Syringe) 25 ml Q15M PRN IV DECREASED GLUCOSE; Start 12/16/16 at 18:00 Dextrose (D50w Syringe) 50 ml Q15M PRN IV DECREASED GLUCOSE; Start 12/16/16 at 18:00 Glucagon (Glucagen) 1 mg Q15M PRN IM DECREASED GLUCOSE; Start 12/16/16 at 18:00 Glucose (Glutose) 15 gm Q15M PRN BUCCAL DECREASED GLUCOSE; Start 12/16/16 at 18 :00 Insulin Aspart (Adult SC Insulin - Moder... Q6 SC Last administered on 05:55; Admin Dose 8 UNIT; Start 12/17/16 at 00:00 Dextrose/Sodium Chloride (D5-1/2ns) 1,000 ml @ 75 mls/hr [id number] IV Last administered on 12/20/16 20:10; Admin Dose 75 MLS/HR; Start 12/17/16 at 08:30 Epoetin Magdiel (Epogen (Non Esrd/Non Oncology)) 10,000 units MoWeFr@17 SC Last administered on 12/19/16 17:42; Admin Dose 10,000 UNITS; Start 12/17/16 at 17: 00 Pantoprazole (Protonix Iv) 40 mg BID@06,18 IV Last administered on 12/21/16 05 :40; Admin Dose 40 MG; Start 12/17/16 at 18:00 Clonidine HCl (Catapres-Tts 1 Patch) 1 patch Q7D TRANSDERM Last administered on 12/17/16 15:32; Admin Dose 1 PATCH; Start 12/17/16 at 14:30 Hydralazine HCl (Apresoline) 10 mg Q6 IV Last administered on 12/20/16 06:17; Admin Dose 10 MG; Start 12/17/16 at 13:30 Levothyroxine Sodium (Synthroid) 25 mcg DAILY@06 PO Last administered on 05:40; Admin Dose 25 MCG; Start 12/20/16 at 06:00 Insulin Glargine 8 unit 8 unit DAILY@20 SC Last administered on 12/20/16 20:07 ; Admin Dose 8 UNIT; Start 12/20/16 at 20:00 Potassium Chloride (KCl 10 MEQ/50 ML SW) 50 ml @ 50 mls/hr TID IVPB Last administered on 12/20/16 20:03; Admin Dose 50 MLS/HR; Start 12/20/16 at 13:00; Stop 12/21/16 at 09:59 Morphine Sulfate (morphine) 1 mg Q4H PRN IV PAIN LEVEL 1-5; Start 12/20/16 at 11:30 Nitroglycerin 1 tab 1 tab Q5M PRN SL ANGINA Last administered on 12/21/16 01: 06; Admin Dose 1 TAB; Start 12/21/16 at 00:30 Sodium Chloride 500 ml @ 500 mls/hr Q1H ONCE IV Last administered on 08:46; Admin Dose 500 MLS/HR; Start 12/21/16 at 08:30; Stop 12/21/16 at 09: 29 Dopamine HCl/ Dextrose 250 ml @ 5.738 mls/ hr TITRATE IV Last administered on 12/21/16 08:44; Admin Dose 5.738 MLS/HR; Start 12/21/16 at 08:30 Dexmedetomidine HCl 200 mcg/ Sodium Chloride 50 ml @ 3.82 mls/hr TITRATE IV ; Start 12/21/16 at 08:30 Norepinephrine (Levophed) 250 ml @ 1.875 mls/ hr TITRATE IV ; Start 12/21/16 at 09:00; Status JUAN AGUIAR Dec 21, 2016 08:57
[2016-12-21] MEDS: HEPARIN 5,000 UNIT/0.5 ML VIAL SC SCH ×2 (09:00→21:58)
--- NOTE | 2016-12-21 09:10 | QN ---
Documentation Comment I was called out of the emergency department to room 2259 for a CODE BLUE event. The patient was receiving high-quality CPR and being bagged by respiratory therapy. I immediately took over as the CODE BLUE leader and ran the code. Please see the code sheet for full details. The patient received multiple doses of epinephrine, 300 mg of amiodarone, 100 mg of lidocaine, and 2 g of magnesium, as well as 5 defibrillations. The final results of the CODE BLUE was return of spontaneous circulation. The patient will be transferred to the intensive care unit. Dr. Cooper the primary doctor was contacted by nursing. Dr. Cooper consulted cardiology who is at the bedside currently. HPI: Please note the history and physical exam is limited as the patient is receiving CPR at this time. The patient is in full cardiac arrest. Physical exam: The patient is being bagged by respiratory therapy. There is no movement. GCS is 3. Endotracheal Intubation by me: Pre assessment performed. Pre-oxygenation performed with 100% oxygen RSI: Performed w/o complication or hypoxic events. Medications as ordered. Blade: Mac 4 ET Tube: 7.5 cm Depth: 24 cm at the lip Intubation confirmed by colorimetric CO2, equal breath sounds, quiet over the stomach. Chest x-ray pending Defibrillation #1: Patient required defibrillation during the CODE BLUE Technique: Biphasic defibrillation at 200 J for ventricular fibrillation Defibrillation #2: Patient required defibrillation during the CODE BLUE Technique: Biphasic defibrillation at 200 J for ventricular fibrillation Defibrillation #3: Patient required defibrillation during the CODE BLUE Technique: Biphasic defibrillation at 200 J for ventricular tachycardia Defibrillation #4: Patient required defibrillation during the CODE BLUE Technique: Biphasic defibrillation at 200 J for ventricular fibrillation Defibrillation #5: Patient required defibrillation during the CODE BLUE Technique: Biphasic defibrillation at 200 J for ventricular fibrillation WEI LOWERY MD Dec 21, 2016 09:10
[2016-12-21] MEDS: NORepinephrine 8MG/250 ML (PMX 250 ML IV SCH (09:20)
[2016-12-21 10:45] LABS: AADO2 Arterial 305.6 mmHg (7.0-24.0); Allen Test ACCEPTAB; Arterial Base Excess -11.4 mmol/L (-3.0-3); Arterial COHb 0.3 % (0.0-3.0); Arterial Fraction of Oxyhgb 98.5 % (93.0-99.0); Arterial MetHb 0.4 % (0.0-1.5); Arterial Total Hemglobin 8.6 g/dl (12.0-18.0); MODE TRACH COLLAR
[2016-12-21 11:01] LABS: AADO2 Arterial 414.2 mmHg (7.0-24.0); Arterial Base Excess -6.3 mmol/L (-3.0-3); Arterial COHb 0.3 % (0.0-3.0); Arterial Fraction of Oxyhgb 98.3 % (93.0-99.0); Arterial HCO3 18.8 mmol/L (22.0-26.0); Arterial MetHb 0.4 % (0.0-1.5); MODE VENT - AC
[2016-12-21 11:04] LABS: Arterial COHb 0.3 % (0.0-3.0); Arterial Fraction of Oxyhgb 65.2 % (93.0-99.0); Arterial MetHb 0.6 % (0.0-1.5); Arterial Total Hemglobin 9.5 g/dl (12.0-18.0); MODE VENT - AC; Sample Type BLMV
[2016-12-21] MEDS ORDERED: IOHEXOL 350MG/ML 50 ML BTL ONE (11:15)
[2016-12-21] MEDS ORDERED: CANGRELOR TETRASODIUM/ NS 250 50 MG IV ONE (11:15)
[2016-12-21] MEDS ORDERED: niCARdipine 25 MG INJ ONE (11:15)
[2016-12-21] MEDS ORDERED: NITROGLYCERIN (IC) 100 MCG/ML INJ ONE (11:20)
[2016-12-21] MEDS ORDERED: PROPOFOL 100 ML ONE (11:30)
[2016-12-21] MEDS ORDERED: SOD CHLORIDE 0.9% 1,000 ML IV SCH (12:00)
[2016-12-21] MEDS ORDERED: AL HYDROX/MG HYDROX/SIMETH 30 ML CUP PO PRN (12:00)
[2016-12-21] MEDS ORDERED: ONDANSETRON 4 MG INJ IV PRN (12:00)
[2016-12-21] MEDS ORDERED: CLOPIDOGREL 75 MG TAB PO ONE (13:00)
[2016-12-21] MEDS ORDERED: ASPIRIN 300 MG SUPP PR ONE (13:00)
[2016-12-21] MEDS: POTASSIUM CHLORIDE 50 ML IVPB SCH ×3 (14:00→21:46)
--- NOTE | 2016-12-21 14:02 | RADRPT ---
Vent Rate: 114 bpm RR Interval: 0 msec AK Interval: 158 msec QRS Duration: 146 msec QT Interval: 360 msec QTC Interval: 496 msec P-R-T [place]: 0 - -69 - 105 degrees Sinus tachycardia with premature atrial complexes Left axis deviation Nonspecific intraventricular block Abnormal ECG Electronically Signed By: Flo Spencer [id number]
--- NOTE | 2016-12-21 14:03 | RADRPT ---
Vent Rate: 153 bpm RR Interval: 0 msec NE Interval: 0 msec QRS Duration: 150 msec QT Interval: 318 msec QTC Interval: 507 msec P-R-T [place]: 0 - -69 - 99 degrees Atrial fibrillation with rapid ventricular response Left axis deviation Left ventricular hypertrophy with QRS widening Abnormal ECG Electronically Signed By: Flo Spencer [id number]
--- NOTE | 2016-12-21 14:08 | CONS ---
Date/Time of Note Date/Time of Note DATE: 12/21/16 TIME: 14:03 Consult Date/Type/Reason Admit Date/Time Dec 16, 2016 at 17:40 Type of Consultation: GI Ordering Provider: JULIANNE ESTRELLA MD Subjective Events of last night reviewed with nurse and Dr. Estrella Chart reviewed Intubated and unresponsive Objective Vital Signs Date Time Temp Pulse Resp B/P Pulse Ox O2 Delivery O2 Flow Rate FiO2 12/21/16 12:14 72 22 100 100 12/21/16 08:45 79/44 Mechanical Ventilator 12/21/16 08:15 97.9 Chest: rhonchi Cardia: no m , r, g Abd: soft, non tender, + BS Intake and Output 12/20/16 12/20/16 12/21/16 15:00 23:00 07:00 Intake Total 50 ml 70 ml 600 ml Output Total 500 ml 100 ml Balance -450 ml -30 ml 600 ml Results/Medications Result Diagram: 12/21/16 0540 12/21/16 0540 Results 24 hrs Laboratory Tests Test 12/20/16 17:13 12/20/16 19:00 12/20/16 20:06 12/20/16 23:58 Bedside Glucose 284 H 223 H 274 H Urine Random Creatinine 185.55 Urine Random Sodium 23 L Urine Protein/Creatinine Ratio 0.43 Urine Total Protein 79.9 H Test 12/21/16 00:49 12/21/16 05:40 12/21/16 05:42 12/21/16 09:00 Troponin I 2.950 *H 4.940 *H White Blood Count 10.1 Red Blood Count 2.82 L Hemoglobin 8.3 L Hematocrit 26.9 L Mean Corpuscular Volume 95.4 Mean Corpuscular Hemoglobin 29.4 Mean Corpuscular Hemoglobin Concent 30.9 L Red Cell Distribution Width 18.3 H Platelet Count 230 Mean Platelet Volume 12.7 H Neutrophils % 82.3 H Lymphocytes % 4.5 L Monocytes % 9.2 Eosinophils % 1.1 Basophils % 0.2 Nucleated Red Blood Cells % 0.7 H Neutrophils # 8.3 H Lymphocytes # 0.5 L Monocytes # 0.9 Eosinophils # 0.1 Basophils # 0.0 Nucleated Red Blood Cells # 0.1 H Sodium Level 141 Potassium Level 4.3 Chloride Level 108 Carbon Dioxide Level 24 Anion Gap 13 Blood Urea Nitrogen 57 H Creatinine 2.88 H Glucose Level 280 H Calcium Level 9.2 Phosphorus Level 2.9 Magnesium Level 2.2 Bedside Glucose 274 H Blood Gas Specimen Source Blood arterial Arterial Blood Date Drawn 12/21/2016 9:05:00 AM Arterial Blood pH (Temp corrected) 7.291 *L Arterial Blood pCO2 (Temp correct) 29.7 L Arterial Blood pO2 (Temp corrected) 377.7 H Arterial Blood HCO3 14.0 L Arterial Blood Base Excess -11.4 L Arterial Blood Oxygen Saturation 99.2 Oniel Test ACCEPTAB Arterial Blood Gas Puncture Site Left Radial Arterial Blood Carboxyhemoglobin 0.3 Arterial Blood Methemoglobin 0.4 Blood Gas A-a O2 Differential 305.6 H Oxyhemoglobin Percent 98.5 Total Hemoglobin 8.6 L Blood Gas Temperature 37.0 Blood Gas Respiration Rate 14.0 Blood Gas Actual Respiration Rate 21 Blood Gas Modality TRACH COLLAR FiO2 100.0 Blood Gas Tidal Volume 500.0 Blood Gas Low PEEP Setting 5.0 Blood Gas Critical Value Read Back M LUIS ALBERTO RN Blood Gas Notified Whom DT Blood Gas Notified Time 12/21/2016 9:25:29 AM Test 12/21/16 10:25 12/21/16 10:50 Blood Gas Specimen Source Blood arterial BLMV Arterial Blood Date Drawn 12/21/2016 10:45:15 AM 12/21/2016 10:55:08 AM Arterial Blood pH (Temp corrected) 7.341 L Arterial Blood pCO2 (Temp correct) 35.6 Arterial Blood pO2 (Temp corrected) 263.2 H 38.7 *L Arterial Blood HCO3 18.8 L Arterial Blood Base Excess -6.3 L Arterial Blood Oxygen Saturation 99.0 65.8 L Oniel Test N/A N/A Arterial Blood Gas Puncture Site A-Line VENOUS LINE Arterial Blood Carboxyhemoglobin 0.3 0.3 Arterial Blood Methemoglobin 0.4 0.6 Blood Gas A-a O2 Differential 414.2 H Oxyhemoglobin Percent 98.3 65.2 L Total Hemoglobin 9.0 L 9.5 L Blood Gas Temperature 37.0 37.0 Blood Gas Respiration Rate 14.0 14.0 Blood Gas Actual Respiration Rate 14 14 Blood Gas Modality VENT - AC VENT - AC FiO2 100.0 100.0 Blood Gas Tidal Volume 500.0 500.0 Blood Gas Low PEEP Setting 5.0 5.0 Blood Gas Notified Whom DT DT Blood Gas Notified Time 12/21/2016 10:58:45 AM 12/21/2016 11:03:57 AM Medications Current Medications Ondansetron HCl (Zofran Inj) 4 mg Q6H PRN IV NAUSEA AND/OR VOMITING; Start at 16:00 Docusate Sodium (Colace) 100 mg Q12H PRN PO CONSTIPATION; Start 12/16/16 at 16: 00 Bisacodyl (Dulcolax Supp) 10 mg DAILY PRN [place] CONSTIPATION; Start 12/16/16 at 16 :00 Heparin Sodium (Porcine) (Heparin (5000 Units/0.5 ml)) 5,000 unit Q12 SC Last administered on 12/20/16 20:05; Admin Dose 5,000 UNIT; Start 12/16/16 at 21:00 Miscellaneous Information 1 ea NOTE XX ; Start 12/16/16 at 18:00 Glucose (Glutose) 15 gm Q15M PRN PO DECREASED GLUCOSE; Start 12/16/16 at 18:00 Glucose (Glutose) 22.5 gm Q15M PRN PO DECREASED GLUCOSE; Start 12/16/16 at 18: 00 Dextrose (D50w Syringe) 25 ml Q15M PRN IV DECREASED GLUCOSE; Start 12/16/16 at 18:00 Dextrose (D50w Syringe) 50 ml Q15M PRN IV DECREASED GLUCOSE; Start 12/16/16 at 18:00 Glucagon (Glucagen) 1 mg Q15M PRN IM DECREASED GLUCOSE; Start 12/16/16 at 18:00 Glucose (Glutose) 15 gm Q15M PRN BUCCAL DECREASED GLUCOSE; Start 12/16/16 at 18 :00 Insulin Aspart (Adult SC Insulin - Moder... Q6 SC Last administered on 05:55; Admin Dose 8 UNIT; Start 12/17/16 at 00:00 Dextrose/Sodium Chloride (D5-1/2ns) 1,000 ml @ 75 mls/hr [id number] IV Last administered on 12/20/16 20:10; Admin Dose 75 MLS/HR; Start 12/17/16 at 08:30 Epoetin Magdiel (Epogen (Non Esrd/Non Oncology)) 10,000 units MoWeFr@17 SC Last administered on 12/19/16 17:42; Admin Dose 10,000 UNITS; Start 12/17/16 at 17: 00 Pantoprazole (Protonix Iv) 40 mg BID@06,18 IV Last administered on 12/21/16 05 :40; Admin Dose 40 MG; Start 12/17/16 at 18:00 Clonidine HCl (Catapres-Tts 1 Patch) 1 patch Q7D TRANSDERM Last administered on 12/17/16 15:32; Admin Dose 1 PATCH; Start 12/17/16 at 14:30 Hydralazine HCl (Apresoline) 10 mg Q6 IV Last administered on 12/20/16 06:17; Admin Dose 10 MG; Start 12/17/16 at 13:30 Levothyroxine Sodium (Synthroid) 25 mcg DAILY@06 PO Last administered on 05:40; Admin Dose 25 MCG; Start 12/20/16 at 06:00 Insulin Glargine (Lantus) 8 unit DAILY@20 SC Last administered on 12/20/16 20: 07; Admin Dose 8 UNIT; Start 12/20/16 at 20:00 Morphine Sulfate (morphine) 1 mg Q4H PRN IV PAIN LEVEL 1-5; Start 12/20/16 at 11:30 Nitroglycerin 1 tab 1 tab Q5M PRN SL ANGINA Last administered on 12/21/16 01: 06; Admin Dose 1 TAB; Start 12/21/16 at 00:30 Dopamine HCl/ Dextrose 250 ml @ 5.738 mls/ hr TITRATE IV Last administered on 12/21/16 08:44; Admin Dose 5.738 MLS/HR; Start 12/21/16 at 08:30 Dexmedetomidine HCl 200 mcg/ Sodium Chloride 50 ml @ 3.82 mls/hr TITRATE IV ; Start 12/21/16 at 08:30 Norepinephrine (Levophed) 250 ml @ 1.875 mls/ hr TITRATE IV Last administered on 12/21/16 09:20; Admin Dose 1.875 MLS/HR; Start 12/21/16 at 09:00 Miscellaneous Information (* Miscellaneous Pharmacy Order) Hold all Metformin ... ONCE XX ; Start 12/21/16 at 12:00; Stop 12/23/16 at 11:59 Aspirin (Halfprin) 81 mg DAILY PO ; Start 12/22/16 at 09:00 Clopidogrel Bisulfate (plaVIX) 75 mg DAILY PO ; Start 12/22/16 at 09:00 Al Hydrox/Mg Hydrox/Simethicone (Mag-Al Plus) 30 ml Q4H PRN PO GASTROINTESTINAL UPSET; Start 12/21/16 at 12:00 Ondansetron HCl (Zofran Inj) 4 mg Q4H PRN IV NAUSEA AND/OR VOMITING; Start at 12:00 Assessment/Plan Chief Complaint/Hosp Course Impression: 1. Partial SBO related to prior abdominal surgery - X Ray shows dramatic improvement 2. Cardiac Issues - now take priority over GI issues Plan: 1. Discussed with Dr. Estrella and Monty 2. Continue NG suction 3. Repeat KUB in am 4. Hopefully SBO will resolve on own and could then begin to feed via NG tube Problems: COLEEN FERRARA MD Dec 21, 2016 14:07
--- NOTE | 2016-12-21 14:12 | RADRPT ---
Echocardiogram Report Patient Name: ABIMAEL VILLALOBOS Gender: Male Date: 1935 Study Date: 21-Dec-2016 Diamond Expert: Zach Al RDCS Location: 105 Ref. Physician: SULAIMAN RAMIREZ Quality: Adequate Procedures: Transthoracic echocardiogram with complete 2D, M-Mode, and doppler examination. Indications: Elevated Troponin, chest tightness. 2D/M Mode Doppler Measurement Value Normal Ranges Measurement Value Normal Ranges LVIDd 2D 5.2 3.5 - 5.6 cm AV Peak Seng 1.4 m/sec LVIDs 2D 4.7 2.1 - 4.1 cm AV Peak PG 7.0 mmHg FS 2D 9.6 % LVOT Peak Seng 0.8 m/sec LVPWd 2D 1.1 0.6 - 1.1 cm LVOT Peak PG 3.0 mmHg IVSd 2D 1.2 0.6 - 1.1 cm TR Peak Seng 2.8 m/sec IVS/LVPW 2D 1.0 TR Peak PG 32.0 mmHg AoR Diam 2D 3.3 2.0 - 3.7 cm RVSP 47.0 mmHg LA/Ao 2D 2 0 - 1 EDV 2D 141.0 cm3 ESV 2D 104.0 cm3 LA Dimen 2D 5.1 2.3 - 4.0 cm Findings Left Ventricle: Normal left ventricular cavity size. Mild concentric left ventricular hypertrophy. Severe global left ventricular systolic dysfunction. Ejection fraction is visually estimated at 30 %. Right Ventricle: Mild enlargement of right ventricle. Moderate right ventricular hypokinesis. Left Atrium: There is moderate enlargement of left atrium. Right Atrium: The right atrium is normal in size. Mitral Valve: Mild mitral leaflet calcification. Mild mitral annular calcification. Mild to moderate mitral valve regurgitation. Aortic Valve: No hemodynamically significant aortic stenosis by doppler. Aortic cusps appear mildly calcified. Trace aortic valve regurgitation. Tricuspid Valve: Normal appearance of the tricuspid valve. Estimated peak PA systolic pressure 47 mmHg. There is mild tricuspid regurgitation. Pulmonic Valve: Normal pulmonic valve appearance. Pericardium: Normal pericardium with no significant pericardial effusion. Aorta: Normal aortic root. IVC: Dilated inferior vena cava without respiratory collapse, however, patient on ventilator. Conclusions Normal left ventricular cavity size. Mild concentric left ventricular hypertrophy. Severe global left ventricular systolic dysfunction. Ejection fraction is visually estimated at 30 %. There is moderate enlargement of left atrium. Mild enlargement of right ventricle. Moderate right ventricular hypokinesis. No hemodynamically significant aortic stenosis by doppler. Aortic cusps appear mildly calcified. Trace aortic valve regurgitation. Normal appearance of the tricuspid valve. Estimated peak PA systolic pressure 47 mmHg. There is mild tricuspid regurgitation. Dilated inferior vena cava without respiratory collapse, however, patient on ventilator. Normal pericardium with no significant pericardial effusion. Electronically Signed By: Fab Daigle 21-Dec-2016 14:11:23 -0700 Patient Name: ABIMAEL VILLALOBOS Study Date: 21-Dec-2016 [id number]
--- NOTE | 2016-12-21 14:12 | RADRPT ---
Vent Rate: 90 bpm RR Interval: 0 msec [place] Interval: 0 msec QRS Duration: 158 msec QT Interval: 392 msec QTC Interval: 479 msec P-R-T Mason: 0 - -75 - 111 degrees Wide QRS rhythm with occasional premature ventricular complexes Left axis deviation Nonspecific intraventricular block Abnormal ECG Electronically Signed By: Flo Spencer [id number]
--- NOTE | 2016-12-21 14:16 | PN ---
Date/Time of Note Date/Time of Note DATE: 12/21/16 TIME: 14:13 Assessment/Plan VTE Prophylaxis VTE Prophylaxis Intervention: other Lines/Catheters IV Catheter Type (from Nrs): Peripheral IV Urinary Cath still in place: No Assessment/Plan Assessment/Plan 1. Acute OR, ht cath>no critical stenosis, low LVEDP, now receiving isotonic iv , rev with family. 2. SBO improved, NG to placed to suction overnight and will reeval tomm 3. Anticipate renal fx will decline, rev with family, related to low bp and dye 4. Respiratory failure sec to hypotension, hopefully can extubate soon. Subjective 24 Hr Interval Summary Subjective hx not possible: pt non-verbal (intubated) Exam/Review of Systems Vital Signs Vitals Vital Signs Date Time Temp Pulse Resp B/P Pulse Ox O2 Delivery O2 Flow Rate FiO2 12/21/16 12:14 72 22 100 100 12/21/16 08:45 79/44 Mechanical Ventilator 12/21/16 08:15 97.9 Intake and Output 12/20/16 12/20/16 12/21/16 15:00 23:00 07:00 Intake Total 50 ml 70 ml 600 ml Output Total 500 ml 100 ml Balance -450 ml -30 ml 600 ml Exam Neck: No jvd Respiratory: clear to auscultation Cardiovascular: regular rate and rhythm Gastrointestinal: soft Extremities: No edema Results Result Diagram: 12/21/16 0540 12/21/16 0540 Results 24 hrs Laboratory Tests Test 12/20/16 17:13 12/20/16 19:00 12/20/16 20:06 12/20/16 23:58 Bedside Glucose 284 H 223 H 274 H Urine Random Creatinine 185.55 Urine Random Sodium 23 L Urine Protein/Creatinine Ratio 0.43 Urine Total Protein 79.9 H Test 12/21/16 00:49 12/21/16 05:40 12/21/16 05:42 12/21/16 09:00 Troponin I 2.950 *H 4.940 *H White Blood Count 10.1 Red Blood Count 2.82 L Hemoglobin 8.3 L Hematocrit 26.9 L Mean Corpuscular Volume 95.4 Mean Corpuscular Hemoglobin 29.4 Mean Corpuscular Hemoglobin Concent 30.9 L Red Cell Distribution Width 18.3 H Platelet Count 230 Mean Platelet Volume 12.7 H Neutrophils % 82.3 H Lymphocytes % 4.5 L Monocytes % 9.2 Eosinophils % 1.1 Basophils % 0.2 Nucleated Red Blood Cells % 0.7 H Neutrophils # 8.3 H Lymphocytes # 0.5 L Monocytes # 0.9 Eosinophils # 0.1 Basophils # 0.0 Nucleated Red Blood Cells # 0.1 H Sodium Level 141 Potassium Level 4.3 Chloride Level 108 Carbon Dioxide Level 24 Anion Gap 13 Blood Urea Nitrogen 57 H Creatinine 2.88 H Glucose Level 280 H Calcium Level 9.2 Phosphorus Level 2.9 Magnesium Level 2.2 Bedside Glucose 274 H Blood Gas Specimen Source Blood arterial Arterial Blood Date Drawn 12/21/2016 9:05:00 AM Arterial Blood pH (Temp corrected) 7.291 *L Arterial Blood pCO2 (Temp correct) 29.7 L Arterial Blood pO2 (Temp corrected) 377.7 H Arterial Blood HCO3 14.0 L Arterial Blood Base Excess -11.4 L Arterial Blood Oxygen Saturation 99.2 Oniel Test ACCEPTAB Arterial Blood Gas Puncture Site Left Radial Arterial Blood Carboxyhemoglobin 0.3 Arterial Blood Methemoglobin 0.4 Blood Gas A-a O2 Differential 305.6 H Oxyhemoglobin Percent 98.5 Total Hemoglobin 8.6 L Blood Gas Temperature 37.0 Blood Gas Respiration Rate 14.0 Blood Gas Actual Respiration Rate 21 Blood Gas Modality TRACH COLLAR FiO2 100.0 Blood Gas Tidal Volume 500.0 Blood Gas Low PEEP Setting 5.0 Blood Gas Critical Value Read Back M LUIS ALBERTO RN Blood Gas Notified Whom DT Blood Gas Notified Time 12/21/2016 9:25:29 AM Test 12/21/16 10:25 12/21/16 10:50 Blood Gas Specimen Source Blood arterial BLMV Arterial Blood Date Drawn 12/21/2016 10:45:15 AM 12/21/2016 10:55:08 AM Arterial Blood pH (Temp corrected) 7.341 L Arterial Blood pCO2 (Temp correct) 35.6 Arterial Blood pO2 (Temp corrected) 263.2 H 38.7 *L Arterial Blood HCO3 18.8 L Arterial Blood Base Excess -6.3 L Arterial Blood Oxygen Saturation 99.0 65.8 L Oniel Test N/A N/A Arterial Blood Gas Puncture Site A-Line VENOUS LINE Arterial Blood Carboxyhemoglobin 0.3 0.3 Arterial Blood Methemoglobin 0.4 0.6 Blood Gas A-a O2 Differential 414.2 H Oxyhemoglobin Percent 98.3 65.2 L Total Hemoglobin 9.0 L 9.5 L Blood Gas Temperature 37.0 37.0 Blood Gas Respiration Rate 14.0 14.0 Blood Gas Actual Respiration Rate 14 14 Blood Gas Modality VENT - AC VENT - AC FiO2 100.0 100.0 Blood Gas Tidal Volume 500.0 500.0 Blood Gas Low PEEP Setting 5.0 5.0 Blood Gas Notified Whom DT DT Blood Gas Notified Time 12/21/2016 10:58:45 AM 12/21/2016 11:03:57 AM Medications Medications Current Medications Ondansetron HCl (Zofran Inj) 4 mg Q6H PRN IV NAUSEA AND/OR VOMITING; Start at 16:00 Bisacodyl (Dulcolax Supp) 10 mg DAILY PRN [place] CONSTIPATION; Start 12/16/16 at 16 :00 Heparin Sodium (Porcine) (Heparin (5000 Units/0.5 ml)) 5,000 unit Q12 SC Last administered on 12/20/16 20:05; Admin Dose 5,000 UNIT; Start 12/16/16 at 21:00 Miscellaneous Information 1 ea NOTE XX ; Start 12/16/16 at 18:00 Glucose (Glutose) 15 gm Q15M PRN PO DECREASED GLUCOSE; Start 12/16/16 at 18:00 Glucose (Glutose) 22.5 gm Q15M PRN PO DECREASED GLUCOSE; Start 12/16/16 at 18: 00 Dextrose (D50w Syringe) 25 ml Q15M PRN IV DECREASED GLUCOSE; Start 12/16/16 at 18:00 Dextrose (D50w Syringe) 50 ml Q15M PRN IV DECREASED GLUCOSE; Start 12/16/16 at 18:00 Glucagon (Glucagen) 1 mg Q15M PRN IM DECREASED GLUCOSE; Start 12/16/16 at 18:00 Glucose (Glutose) 15 gm Q15M PRN BUCCAL DECREASED GLUCOSE; Start 12/16/16 at 18 :00 Insulin Aspart (Novolog Insulin Pen) (Adult SC Insulin - Moder... Q6 SC Last administered on 12/21/16 05:55; Admin Dose 8 UNIT; Start 12/17/16 at 00:00 Epoetin Magdiel (Epogen (Non Esrd/Non Oncology)) 10,000 units MoWeFr@17 SC Last administered on 12/19/16 17:42; Admin Dose 10,000 UNITS; Start 12/17/16 at 17: 00 Pantoprazole (Protonix Iv) 40 mg BID@06,18 IV Last administered on 12/21/16 05 :40; Admin Dose 40 MG; Start 12/17/16 at 18:00 Hydralazine HCl (Apresoline) 10 mg Q6 IV Last administered on 12/20/16 06:17; Admin Dose 10 MG; Start 12/17/16 at 13:30 Morphine Sulfate (morphine) 1 mg Q4H PRN IV PAIN LEVEL 1-5; Start 12/20/16 at 11:30 Nitroglycerin 1 tab 1 tab Q5M PRN SL ANGINA Last administered on 12/21/16 01: 06; Admin Dose 1 TAB; Start 12/21/16 at 00:30 Dopamine HCl/ Dextrose 250 ml @ 5.738 mls/ hr TITRATE IV Last administered on 12/21/16 08:44; Admin Dose 5.738 MLS/HR; Start 12/21/16 at 08:30 Dexmedetomidine HCl 200 mcg/ Sodium Chloride 50 ml @ 3.82 mls/hr TITRATE IV ; Start 12/21/16 at 08:30 Norepinephrine (Levophed) 250 ml @ 1.875 mls/ hr TITRATE IV Last administered on 12/21/16 09:20; Admin Dose 1.875 MLS/HR; Start 12/21/16 at 09:00 Clopidogrel Bisulfate (plaVIX) 75 mg DAILY PO ; Start 12/22/16 at 09:00 Al Hydrox/Mg Hydrox/Simethicone (Mag-Al Plus) 30 ml Q4H PRN PO GASTROINTESTINAL UPSET; Start 12/21/16 at 12:00 Ondansetron HCl 4 mg 4 mg Q4H PRN IV NAUSEA AND/OR VOMITING; Start 12/21/16 at 12:00 Sodium Chloride (NS) 1,000 ml @ 100 mls/hr Q10H IV ; Start 12/21/16 at 14:00 JULIANNE ESTRELLA MD Dec 21, 2016 14:16
[2016-12-21] MEDS: SOD CHLORIDE 0.9% 1,000 ML IV SCH (14:41)
--- NOTE | 2016-12-21 15:02 | RADRPT ---
PROCEDURE: XR Chest. CLINICAL INDICATION: Endotracheal tube position check. TECHNIQUE: Single frontal view of the chest was obtained COMPARISON: Chest x-ray 12/17/2016 02:10 p.m. FINDINGS: The soft tissues are normal. The heart is enlarged. Mediastinotomy was performed. There are degen erative osteophytes in the mid and lower thoracic spine. The cardiomediastinal silhouette and hilar structures are normal. The pulmonary vasculature is equilibrated. There are vascular calcifications in the aortic arch. Infiltrates have developed greater in the right lung than left which partially obscure the right costophrenic angle. The left costophrenic angle is clear. The endotracheal tube positioned near to 05/06. IMPRESSION: 1. Endotracheal tube is well-positioned with its tip approximately 3.4 cm superior to the stephanie. 2. The to be an artifact possibly representing a catheter is noted extending across the upper chest wall coiled inferior to the right clavicle. Clinical correlation needed. 3. Cardiomegaly with interval development of asymmetric mixed interstitial and alveolar infiltrates in the right lung. Asymmetric pulmonary edema from fluid overload or pneumonia could be considered in the differential diagnosis. 4. The NG tube is positioned distal to the GE junction in the stomach. 5. Status post mediastinotomy with clips in the mediastinal area from prior surgery. 6. Atherosclerotic vascular disease. RPTAT:AAJJ Physician Kelvin Date Time Electronically viewed and signed by Physician Kelvin on 12/21/2016 15:01 /
[2016-12-21] MEDS: DEXMEDETOMIDINE HCL 200 MCG in SOD CHLORIDE 0.9% 48 ML IV SCH ×2 (15:13→20:28)
--- NOTE | 2016-12-21 15:58 | PN ---
Date/Time of Note Date/Time of Note DATE: 12/21/16 TIME: 15:48 Assessment/Plan Lines/Catheters IV Catheter Type (from Nrs): Peripheral IV Marcum in Place (from Nrs): No Assessment/Plan Assessment/Plan [facility] Progress Note Date of Service: 12/21/16 Today's Impression & Plan: Overall deteriorated with primary cardiac event. Abd remains benign. No indication for acute surgical intervention for his abdomen. Prognosis if guarded. May benefit from enteric feeding through NG, and we plan on starting that if stable by tomorrow. D/w Dr. Shin and Dr. Nuñez. With above assessment, I've recommended the following for today: 1. Cont current cares 2. If NG output low and clinically stable by tomorrow am, recommend starting tube feeds through NG then Discussed with Dr. Cooper and Dr. Nuñez. Thank you again for your great care of this very pleasant patient and wonderful family. If there are any questions, please feel free to call me at [phone]. TOTAL VISIT TIME: 20 minutes of which more than half was spent in [id number] discussion with the patient, possibly including family, as well as coordination of care between multiple physicians and providers. Disclaimer: Inadvertent spelling or grammatical errors are likely due to EHR/ dictation software use and do not reflect on the overall quality of patient care. Updated Clinical Summary: The patient is a very pleasant 81-year-old gentleman with comorbidities including BMI 25.6 and prior appendectomy as well as coronary artery disease status post bypass grafting, presenting to [facility] through the emergency department with abdominal pain, nausea, and vomiting. Cardiac event (? arrhythmia with rise in troponin) morning hours on 12/21/16 requiring intubation and transfer to ICU. COMORBIDITIES: 1. BMI 25.6. 2. Status post coronary artery bypass graft surgery. 3. Status post appendectomy. 4. Hypertension. 5. Hypothyroidism. 6. Dyslipidemia. 7. Myelofibrosis. 8. Colon polyps. 9. Diverticulosis. 10. Diabetes. 11. Cardiac event am 12/21/16 requiring intubation and transfer to ICU at [facility] Subjective: Events as above. Intubated and unresponsive. Last night complaining of chest tightness. Coded this am. Objective: Vitals: See below Exam: GENERAL: On exam, the patient was laying in bed intubated and appeared to be comfortable and in no acute distress. PERRL. ABDOMEN: Soft, nontender and nondistended. NG in place (recently placed). There are no peritoneal signs or guarding. SKIN: Skin appears to be pink and feels warm to touch. NEUROLOGIC: Patient is on Propofol and unresponsive on the vent. Exam/Review of Systems Vital Signs Vitals Vital Signs Date Time Temp Pulse Resp B/P Pulse Ox O2 Delivery O2 Flow Rate FiO2 12/21/16 14:45 64 21 88/47 100 12/21/16 14:00 Mechanical Ventilator 12/21/16 12:15 97.5 12/21/16 12:14 100 Intake and Output 12/20/16 12/20/16 12/21/16 15:00 23:00 07:00 Intake Total 50 ml 70 ml 600 ml Output Total 500 ml 100 ml Balance -450 ml -30 ml 600 ml Results Result Diagram: 12/21/16 0540 12/21/16 0540 JUMANA MONTANA M.D. Dec 21, 2016 15:58
[2016-12-21 16:22] LABS: ADD SCAN DIFF NO
--- NOTE | 2016-12-21 16:22 | RADRPT ---
PROCEDURE: Chest Radiograph. CLINICAL INDICATION: Post intubation TECHNIQUE: Single frontal chest radiograph. COMPARISON: Chest radiograph 12/21/2016 FINDINGS: Patient is status post sternotomy. An endotracheal tube is in place with distal tip approximately 3 cm above the stephanie. A nasogastric tube is in place with distal tip overlying the stomach. A righ t internal jugular venous catheters in place. The heart is magnified and likely mildly enlarged. Th ere is patchy interstitial and airspace disease throughout the right lung which is not appreciated o n the left. The left lung is grossly clear. IMPRESSION: 1. Patchy interstitial and airspace disease throughout the right lung suggesting pulmonary infiltra diana, likely pneumonia. 2. Lines and tubes are stable. 3. Atherosclerotic vascular disease. RPTAT: AA .Srinivasa Navas MD, Date Time Electronically viewed and signed by .Srinivasa Navas MD, on 12/21/2016 16:21 .B/
[2016-12-21 16:23] LABS: ABNORMAL IP MESSAGE 1; HEMATOCRIT 22.9 % (42.0-52.0); HEMOGLOBIN 7.4 g/dl (14.0-18.0); MEAN CORPUSCULAR HEMOGLOBIN 30.7 pg (29.0-33.0); MEAN CORPUSCULAR HGB CONC 32.3 g/dl (32.0-37.0); MEAN PLATELET VOLUME 12.4 fl (7.4-10.4); PLATELET COUNT 219 10^3/UL (140-415); RED BLOOD COUNT 2.41 10^6/ul (4.70-6.10); RED CELL DISTRIBUTION WIDTH 18.1 % (11.5-14.5); WHITE BLOOD COUNT 12.7 10^3/ul (4.8-10.8)
[2016-12-21 16:35] LABS: POTASSIUM 3.6 mmol/L (3.5-5.1)
[2016-12-21 16:37] LABS: CREATININE 3.22 mg/dl (0.61-1.24)
[2016-12-21 16:38] LABS: CALCIUM 8.4 mg/dl (8.4-10.2)
[2016-12-21] MEDS: EPOETIN 10000 UNITS/ML (NON ESRD/NON ONCOLOGY) SC SCH (18:14)
[2016-12-21 18:18] LABS: LYMPHOCYTES # 0.3 10^3/ul (0.8-2.9); MONOCYTE # 0.5 10^3/ul (0.3-0.9); MYELOCYTES # 0.1; NEUTROPHIL # 11.4 10^3/ul (1.6-7.5); OVALOCYTES 1+; TEAR DROP CELLS FEW
[2016-12-21] MEDS ORDERED: POTASSIUM CHLORIDE 50 ML IVPB SCH (19:00)
[2016-12-21] MEDS ORDERED: POTASSIUM CHLORIDE 250 ML IVPB ONE (20:00)
[2016-12-22] VITALS (70 sets, daily range): BP systolic 96–134; BP diastolic 46–80; PULSE 67–78; RESP 14–29
[2016-12-22] MEDS: SOD CHLORIDE 0.9% 1,000 ML IV SCH ×3 (00:33→13:34)
[2016-12-22] MEDS: Insulin NOVOLOG SS MODERATE Algorithm(NPO/TPN/ENTERAL FEEDS) SC SCH ×5 (00:40→23:04)
[2016-12-22] MEDS: NORepinephrine 8MG/250 ML (PMX 250 ML IV SCH (01:09)
[2016-12-22] MEDS: DEXMEDETOMIDINE HCL 200 MCG in SOD CHLORIDE 0.9% 48 ML IV SCH ×2 (05:23→12:54)
[2016-12-22] MEDS: hydrALAzine 20 MG INJ IV SCH ×4 (06:00→18:00)
[2016-12-22] MEDS: PANTOPRAZOLE 40 MG INJ IV SCH ×2 (06:18→18:03)
--- NOTE | 2016-12-22 06:22 | CONS ---
Date/Time of Note Date/Time of Note DATE: 12/22/16 TIME: 06:15 Consult Date/Type/Reason Admit Date/Time Dec 16, 2016 at 17:40 Type of Consultation: GI Ordering Provider: JULIANNE ESTRELLA MD Subjective Still intubated and on pressors Alert and responds appropriately Ng drainage bilious Fall in Hct noted, transfused 2U Objective Vital Signs Date Time Temp Pulse Resp B/P Pulse Ox O2 Delivery O2 Flow Rate FiO2 12/22/16 04:43 70 22 100 40 12/22/16 04:15 103/49 12/22/16 04:00 98.1 Mechanical Ventilator Cheat: respirator Cardiac: no m, r, g Abdomen: soft, non tender, active bs Intake and Output 12/21/16 12/21/16 12/22/16 15:00 23:00 07:00 Intake Total 77.50 ml 1060.45 ml Output Total 160 ml 290 ml 150 ml Balance -82.50 ml 770.45 ml -150 ml Results/Medications Result Diagram: 12/21/16 1615 12/21/16 1615 Results 24 hrs Laboratory Tests Test 12/21/16 09:00 12/21/16 10:25 12/21/16 10:50 12/21/16 14:09 Blood Gas Specimen Source Blood arterial Blood arterial BLMV Arterial Blood Date Drawn 12/21/2016 9:05:00 AM 12/21/2016 10:45:15 AM 12/21/2016 10:55:08 AM Arterial Blood pH (Temp corrected) 7.291 *L 7.341 L Arterial Blood pCO2 (Temp correct) 29.7 L 35.6 Arterial Blood pO2 (Temp corrected) 377.7 H 263.2 H 38.7 *L Arterial Blood HCO3 14.0 L 18.8 L Arterial Blood Base Excess -11.4 L -6.3 L Arterial Blood Oxygen Saturation 99.2 99.0 65.8 L Oniel Test ACCEPTAB N/A N/A Arterial Blood Gas Puncture Site Left Radial A-Line VENOUS LINE Arterial Blood Carboxyhemoglobin 0.3 0.3 0.3 Arterial Blood Methemoglobin 0.4 0.4 0.6 Blood Gas A-a O2 Differential 305.6 H 414.2 H Oxyhemoglobin Percent 98.5 98.3 65.2 L Total Hemoglobin 8.6 L 9.0 L 9.5 L Blood Gas Temperature 37.0 37.0 37.0 Blood Gas Respiration Rate 14.0 14.0 14.0 Blood Gas Actual Respiration Rate 21 14 14 Blood Gas Modality TRACH COLLAR VENT - AC VENT - AC FiO2 100.0 100.0 100.0 Blood Gas Tidal Volume 500.0 500.0 500.0 Blood Gas Low PEEP Setting 5.0 5.0 5.0 Blood Gas Critical Value Read Back M LUIS ALBERTO RN Blood Gas Notified Whom DT DT DT Blood Gas Notified Time 12/21/2016 9:25:29 AM 12/21/2016 10:58:45 AM 12/21/2016 11:03:57 AM Bedside Glucose 347 H Test 12/21/16 16:15 12/21/16 17:58 12/22/16 00:35 White Blood Count 12.7 #H Red Blood Count 2.41 L Hemoglobin 7.4 L Hematocrit 22.9 L Mean Corpuscular Volume 95.0 Mean Corpuscular Hemoglobin 30.7 Mean Corpuscular Hemoglobin Concent 32.3 Red Cell Distribution Width 18.1 H Platelet Count 219 Mean Platelet Volume 12.4 H Neutrophils % 90.0 H Band Neutrophils % 3.0 Lymphocytes % 2.0 L Monocytes % 4.0 Myelocytes % 1.0 H Neutrophils # 11.4 H Lymphocytes # 0.3 L Monocytes # 0.5 Myelocytes # 0.1 Macrocytosis FEW Tear Drop Cells FEW Ovalocytes 1+ Sodium Level 140 Potassium Level 3.6 Chloride Level 109 Carbon Dioxide Level 20 L Anion Gap 15 Blood Urea Nitrogen 54 H Creatinine 3.22 H Glucose Level 289 H Calcium Level 8.4 Bedside Glucose 266 H 202 Medications Current Medications Ondansetron HCl (Zofran Inj) 4 mg Q6H PRN IV NAUSEA AND/OR VOMITING; Start at 16:00 Bisacodyl (Dulcolax Supp) 10 mg DAILY PRN [place] CONSTIPATION; Start 12/16/16 at 16 :00 Heparin Sodium (Porcine) (Heparin (5000 Units/0.5 ml)) 5,000 unit Q12 SC Last administered on 12/21/16t 21:58; Admin Dose 5,000 UNIT; Start 12/16/16 at 21:00 Miscellaneous Information 1 ea NOTE XX ; Start 12/16/16 at 18:00 Glucose (Glutose) 15 gm Q15M PRN PO DECREASED GLUCOSE; Start 12/16/16 at 18:00 Glucose (Glutose) 22.5 gm Q15M PRN PO DECREASED GLUCOSE; Start 12/16/16 at 18: 00 Dextrose (D50w Syringe) 25 ml Q15M PRN IV DECREASED GLUCOSE; Start 12/16/16 at 18:00 Dextrose (D50w Syringe) 50 ml Q15M PRN IV DECREASED GLUCOSE; Start 12/16/16 at 18:00 Glucagon (Glucagen) 1 mg Q15M PRN IM DECREASED GLUCOSE; Start 12/16/16 at 18:00 Glucose (Glutose) 15 gm Q15M PRN BUCCAL DECREASED GLUCOSE; Start 12/16/16 at 18 :00 Insulin Aspart (Novolog Insulin Pen) (Adult SC Insulin - Moder... Q6 SC Last administered on 12/22/16 00:40; Admin Dose 4 UNIT; Start 12/17/16 at 00:00 Epoetin Magdiel (Epogen (Non Esrd/Non Oncology)) 10,000 units MoWeFr@17 SC Last administered on 12/21/16 18:14; Admin Dose 10,000 UNITS; Start 12/17/16 at 17: 00 Pantoprazole (Protonix Iv) 40 mg BID@06,18 IV Last administered on 12/21/16 18 :15; Admin Dose 40 MG; Start 12/17/16 at 18:00 Hydralazine HCl (Apresoline) 10 mg Q6 IV Last administered on 12/20/16 06:17; Admin Dose 10 MG; Start 12/17/16 at 13:30 Morphine Sulfate (morphine) 1 mg Q4H PRN IV PAIN LEVEL 1-5; Start 12/20/16 at 11:30 Nitroglycerin 1 tab 1 tab Q5M PRN SL ANGINA Last administered on 12/21/16 01: 06; Admin Dose 1 TAB; Start 12/21/16 at 00:30 Dopamine HCl/ Dextrose 250 ml @ 5.738 mls/ hr TITRATE IV Last administered on 12/21/16 08:44; Admin Dose 5.738 MLS/HR; Start 12/21/16 at 08:30 Dexmedetomidine HCl 200 mcg/ Sodium Chloride 50 ml @ 3.82 mls/hr TITRATE IV Last administered on 12/22/16 05:23; Admin Dose 7.65 MLS/HR; Start 12/21/16 at 08:30 Norepinephrine (Levophed) 250 ml @ 1.875 mls/ hr TITRATE IV Last administered on 12/22/16 01:09; Admin Dose 7.5 MLS/HR; Start 12/21/16 at 09:00 Clopidogrel Bisulfate (plaVIX) 75 mg DAILY PO ; Start 12/22/16 at 09:00 Al Hydrox/Mg Hydrox/Simethicone (Mag-Al Plus) 30 ml Q4H PRN PO GASTROINTESTINAL UPSET; Start 12/21/16 at 12:00 Ondansetron HCl 4 mg 4 mg Q4H PRN IV NAUSEA AND/OR VOMITING; Start 12/21/16 at 12:00 Sodium Chloride (NS) 1,000 ml @ 100 mls/hr Q10H IV Last administered on 00:33; Admin Dose 100 MLS/HR; Start 12/21/16 at 14:00 Assessment/Plan Chief Complaint/Hosp Course Impression: 1. Partial SBO related to prior abdominal surgery - clinically improved 2. Cardiac Issues - now take priority over GI issues 3. Fall in Hct - no obvious GI blood loss Plan: 1. Discussed with nursing 2. Continue NG suction 3. If SBO resolved on KUB, could begin tube feeding 4. Check stool OB 5. Management of cardiac issues per Dr. Estrella and cardiology Problems: COLEEN FERRARA MD Dec 22, 2016 06:22
--- NOTE | 2016-12-22 07:05 | RADRPT ---
PROCEDURE: XR Abdomen. CLINICAL INDICATION: Abdomen pain. TECHNIQUE: Two views. AP supine and AP erect. COMPARISON: 12/21/2016. FINDINGS: The nasogastric tube tip is in the stomach. There is contrast in the colon and rectosigmoid from th e prior study. The small bowel gas pattern is normal. Previously noted loops of small bowel which measured 3 cm now measure 1.5 cm. There is no evidence of obstruction. There are sternal wires and mediastinal clips. There is a new left femoral vein catheter. Vascular calcifications are present consistent with atherosclerosis. There are degenerative changes of the spine and there has been prior lumbar spine surgery. IMPRESSION: 1. Contrast in the colon from the prior study. 2. Small bowel obstruction has resolved. 3. Nasogastric tube tip in the stomach. 4. Left femoral vein catheter. RPTAT: QQ .Ousmane Diallo MD, Date Time Electronically viewed and signed by .Ousmane Diallo MD, on 12/22/2016 07:05 .R/
--- NOTE | 2016-12-22 07:07 | RADRPT ---
PROCEDURE: XR Chest. CLINICAL INDICATION: Shortness of breath. TECHNIQUE: Single frontal view. COMPARISON: 12/21/2016. FINDINGS: The endotracheal tube and nasogastric tube are in satisfactory position. There is mild interstitial disease in the right lung. The left lung is clear. The heart is mildly enlarged. There is calcification in the aorta consistent with atherosclerosis. There are sternal wires and mediastinal clips. There is no pleural effusion. There is no pneumothorax. IMPRESSION: 1. Endotracheal tube and nasogastric tube in satisfactory position. 2. Mild interstitial disease throughout the right lung, unchanged. 3. Mild cardiomegaly and atherosclerosis. 4. Previous median sternotomy. RPTAT: QQ .Ousmane Diallo MD, MD Date Time Electronically viewed and signed by .Ousmane Diallo MD, MD on 12/22/2016 07:06 .R/
[2016-12-22 07:40] LABS: ADD SCAN DIFF NO
[2016-12-22 07:48] LABS: ABNORMAL IP MESSAGE 1; HEMATOCRIT 27.2 % (42.0-52.0); HEMOGLOBIN 8.3 g/dl (14.0-18.0); MEAN CORPUSCULAR HEMOGLOBIN 28.4 pg (29.0-33.0); MEAN CORPUSCULAR HGB CONC 30.5 g/dl (32.0-37.0); MEAN CORPUSCULAR VOLUME 93.2 fl (82.0-101.0); MEAN PLATELET VOLUME 12.6 fl (7.4-10.4); PLATELET COUNT 136 10^3/UL (140-415); RED BLOOD COUNT 2.92 10^6/ul (4.70-6.10); RED CELL DISTRIBUTION WIDTH 17.7 % (11.5-14.5)
[2016-12-22 08:00] LABS: INR 1.22; PARTIAL THROMBOPLASTIN TIME 36.1 Sec (25.0-35.0); PROTIME 15.5 Sec (12.2-14.2); PT RATIO 1.2
[2016-12-22 08:03] LABS: POTASSIUM 4.2 mmol/L (3.5-5.1)
[2016-12-22 08:05] LABS: MAGNESIUM 2.6 mg/dl (1.7-2.5); PHOSPHORUS 3.7 mg/dl (2.5-4.9)
[2016-12-22 08:06] LABS: ALBUMIN/GLOBULIN RATIO 1.11; BILIRUBIN,INDIRECT 0.2 mg/dl (0-1.1); BILIRUBIN,TOTAL 0.2 mg/dl (0.2-1.3); CREATININE 3.45 mg/dl (0.61-1.24); TOTAL PROTEIN 5.7 g/dl (6.1-8.1)
[2016-12-22] MEDS: CLOPIDOGREL 75 MG TAB PO SCH (08:41)
[2016-12-22] MEDS: HEPARIN 5,000 UNIT/0.5 ML VIAL SC SCH ×2 (08:42→21:40)
[2016-12-22] MEDS ORDERED: ASPIRIN (EC) 81 MG TAB PO SCH (09:00)
--- NOTE | 2016-12-22 09:42 | PN ---
Date/Time of Note Date/Time of Note DATE: 12/22/16 TIME: 09:39 Assessment/Plan VTE Prophylaxis VTE Prophylaxis Intervention: other Lines/Catheters IV [facility]ter Type [facility]from [facility]): Saline Lock Urinary Cath still in place: Yes Reason Cath still needed: urinary retention Assessment/Plan Assessment/Plan 1. S/P IA now without ventric arrythmia, no chf on exam, will need asa and or plavix once ng removed. 2. SBO resolved clinically and as revealed by KUB, dc ng and start clear by gi and surg 3. Respir failure, rev with pul, as he is quite alert hopeful extubation soon. 4. Anemia inc yesterday, transfused 2 units cells will ck stool ob 5. Despite dye and hypotension renal fx remains stable. Subjective 24 Hr Interval Summary Subjective hx not possible: other (intubated, alert, responds to commands with difficulty) Exam/Review of Systems Vital Signs Vitals Vital Signs Date Time Temp Pulse Resp B/P Pulse Ox O2 Delivery O2 Flow Rate FiO2 12/22/16 07:00 69 22 112/58 100 12/22/16 04:43 40 12/22/16 04:00 98.1 Mechanical Ventilator Intake and Output 12/21/16 12/21/16 12/22/16 15:00 23:00 07:00 Intake Total 77.50 ml 1060.45 ml 1342.4 ml Output Total 160 ml 290 ml 360 ml Balance -82.50 ml 770.45 ml 982.4 ml Exam Neck: No jvd Respiratory: clear to auscultation, diminished breath sounds Cardiovascular: regular rate and rhythm Gastrointestinal: soft Extremities: No edema (and no calf tend) Results Result Diagram: 12/22/16 0730 12/22/16 0730 Results 24 hrs Laboratory Tests Test 12/21/16 10:25 12/21/16 10:50 12/21/16 14:09 12/21/16 16:15 Blood Gas Specimen Source Blood arterial BLMV Arterial Blood Date Drawn 12/21/2016 10:45:15 AM 12/21/2016 10:55:08 AM Arterial Blood pH (Temp corrected) 7.341 L Arterial Blood pCO2 (Temp correct) 35.6 Arterial Blood pO2 (Temp corrected) 263.2 H 38.7 *L Arterial Blood HCO3 18.8 L Arterial Blood Base Excess -6.3 L Arterial Blood Oxygen Saturation 99.0 65.8 L Oniel Test N/A N/A Arterial Blood Gas Puncture Site A-Line VENOUS LINE Arterial Blood Carboxyhemoglobin 0.3 0.3 Arterial Blood Methemoglobin 0.4 0.6 Blood Gas A-a O2 Differential 414.2 H Oxyhemoglobin Percent 98.3 65.2 L Total Hemoglobin 9.0 L 9.5 L Blood Gas Temperature 37.0 37.0 Blood Gas Respiration Rate 14.0 14.0 Blood Gas Actual Respiration Rate 14 14 Blood Gas Modality VENT - AC VENT - AC FiO2 100.0 100.0 Blood Gas Tidal Volume 500.0 500.0 Blood Gas Low PEEP Setting 5.0 5.0 Blood Gas Notified Whom DT DT Blood Gas Notified Time 12/21/2016 10:58:45 AM 12/21/2016 11:03:57 AM Bedside Glucose 347 H White Blood Count 12.7 #H Red Blood Count 2.41 L Hemoglobin 7.4 L Hematocrit 22.9 L Mean Corpuscular Volume 95.0 Mean Corpuscular Hemoglobin 30.7 Mean Corpuscular Hemoglobin Concent 32.3 Red Cell Distribution Width 18.1 H Platelet Count 219 Mean Platelet Volume 12.4 H Neutrophils % 90.0 H Band Neutrophils % 3.0 Lymphocytes % 2.0 L Monocytes % 4.0 Myelocytes % 1.0 H Neutrophils # 11.4 H Lymphocytes # 0.3 L Monocytes # 0.5 Myelocytes # 0.1 Macrocytosis FEW Tear Drop Cells FEW Ovalocytes 1+ Sodium Level 140 Potassium Level 3.6 Chloride Level 109 Carbon Dioxide Level 20 L Anion Gap 15 Blood Urea Nitrogen 54 H Creatinine 3.22 H Glucose Level 289 H Calcium Level 8.4 Test 12/21/16 17:58 12/22/16 00:35 12/22/16 06:20 12/22/16 07:30 Bedside Glucose 266 H 202 208 White Blood Count 7.0 # Red Blood Count 2.92 #L Hemoglobin 8.3 L Hematocrit 27.2 L Mean Corpuscular Volume 93.2 Mean Corpuscular Hemoglobin 28.4 L Mean Corpuscular Hemoglobin Concent 30.5 L Red Cell Distribution Width 17.7 H Platelet Count 136 #L Mean Platelet Volume 12.6 H Neutrophils % 77.0 Lymphocytes % 5.2 L Monocytes % 10.9 Eosinophils % 0.9 Basophils % 0.1 Nucleated Red Blood Cells % 1.4 H Neutrophils # 5.4 Lymphocytes # 0.4 L Monocytes # 0.8 Eosinophils # 0.1 Basophils # 0.0 Nucleated Red Blood Cells # 0.1 H Prothrombin Time 15.5 H Prothrombin Time Ratio 1.2 INR International Normalized Ratio 1.22 Activated Partial Thromboplast Time 36.1 H Sodium Level 141 Potassium Level 4.2 Chloride Level 115 H Carbon Dioxide Level 18 L Anion Gap 12 Blood Urea Nitrogen 52 H Creatinine 3.45 H Glucose Level 210 Calcium Level 8.0 L Phosphorus Level 3.7 Magnesium Level 2.6 H Total Bilirubin 0.2 Direct Bilirubin 0.00 Indirect Bilirubin 0.2 Aspartate Amino Transf (AST/SGOT) 128 H Alanine Aminotransferase (ALT/SGPT) 119 H Alkaline Phosphatase 43 Total Protein 5.7 L Albumin 3.0 L Globulin 2.70 Albumin/Globulin Ratio 1.11 Amylase Level 71 Lipase 265 Medications Medications Current Medications Ondansetron HCl (Zofran Inj) 4 mg Q6H PRN IV NAUSEA AND/OR VOMITING; Start at 16:00 Bisacodyl (Dulcolax Supp) 10 mg DAILY PRN [place] CONSTIPATION; Start 12/16/16 at 16 :00 Heparin Sodium (Porcine) (Heparin (5000 Units/0.5 ml)) 5,000 unit Q12 SC Last administered on 12/22/16t 08:42; Admin Dose 5,000 UNIT; Start 12/16/16 at 21:00 Miscellaneous Information 1 ea NOTE XX ; Start 12/16/16 at 18:00 Glucose (Glutose) 15 gm Q15M PRN PO DECREASED GLUCOSE; Start 12/16/16 at 18:00 Glucose (Glutose) 22.5 gm Q15M PRN PO DECREASED GLUCOSE; Start 12/16/16 at 18: 00 Dextrose (D50w Syringe) 25 ml Q15M PRN IV DECREASED GLUCOSE; Start 12/16/16 at 18:00 Dextrose (D50w Syringe) 50 ml Q15M PRN IV DECREASED GLUCOSE; Start 12/16/16 at 18:00 Glucagon (Glucagen) 1 mg Q15M PRN IM DECREASED GLUCOSE; Start 12/16/16 at 18:00 Glucose (Glutose) 15 gm Q15M PRN BUCCAL DECREASED GLUCOSE; Start 12/16/16 at 18 :00 Insulin Aspart (Novolog Insulin Pen) (Adult SC Insulin - Moder... Q6 SC Last administered on 12/22/16 06:23; Admin Dose 4 UNIT; Start 12/17/16 at 00:00 Epoetin Magdiel (Epogen (Non Esrd/Non Oncology)) 10,000 units MoWeFr@17 SC Last administered on 12/21/16 18:14; Admin Dose 10,000 UNITS; Start 12/17/16 at 17: 00 Pantoprazole (Protonix Iv) 40 mg BID@06,18 IV Last administered on 12/22/16 06: 18; Admin Dose 40 MG; Start 12/17/16 at 18:00 Hydralazine HCl (Apresoline) 10 mg Q6 IV Last administered on 12/20/16 06:17; Admin Dose 10 MG; Start 12/17/16 at 13:30 Morphine Sulfate (morphine) 1 mg Q4H PRN IV PAIN LEVEL 1-5; Start 12/20/16 at 11:30 Nitroglycerin 1 tab 1 tab Q5M PRN SL ANGINA Last administered on 12/21/16 01: 06; Admin Dose 1 TAB; Start 12/21/16 at 00:30 Dopamine HCl/ Dextrose 250 ml @ 5.738 mls/ hr TITRATE IV Last administered on 12/21/16 08:44; Admin Dose 5.738 MLS/HR; Start 12/21/16 at 08:30 Dexmedetomidine HCl 200 mcg/ Sodium Chloride 50 ml @ 3.82 mls/hr TITRATE IV Last administered on 12/22/16 05:23; Admin Dose 7.65 MLS/HR; Start 12/21/16 at 08:30 Norepinephrine (Levophed) 250 ml @ 1.875 mls/ hr TITRATE IV Last administered on 12/22/16 01:09; Admin Dose 7.5 MLS/HR; Start 12/21/16 at 09:00 Clopidogrel Bisulfate (plaVIX) 75 mg DAILY PO Last administered on 12/22/16 08: 41; Admin Dose 75 MG; Start 12/22/16 at 09:00 Al Hydrox/Mg Hydrox/Simethicone (Mag-Al Plus) 30 ml Q4H PRN PO GASTROINTESTINAL UPSET; Start 12/21/16 at 12:00 Ondansetron HCl 4 mg 4 mg Q4H PRN IV NAUSEA AND/OR VOMITING; Start 12/21/16 at 12:00 Sodium Chloride (NS) 1,000 ml @ 100 mls/hr Q10H IV Last administered on 00:33; Admin Dose 100 MLS/HR; Start 12/21/16 at 14:00 JULIANNE ESTRELLA MD Dec 22, 2016 09:42
--- NOTE | 2016-12-22 11:17 | RADRPT ---
Vent Rate: 69 bpm RR Interval: 0 msec DE Interval: 170 msec QRS Duration: 142 msec QT Interval: 470 msec QTC Interval: 503 msec P-R-T Rogers: 41 - -69 - 126 degrees Normal sinus rhythm Left axis deviation Nonspecific intraventricular block T wave abnormality, consider lateral ischemia Abnormal ECG Electronically Signed By: Nikhil Orellana [id number]
[2016-12-22 11:44] LABS: EOSINOPHILS # 0.1 10^3/ul (0.0-0.5); LYMPHOCYTES # 0.6 10^3/ul (0.8-2.9); MONOCYTE # 0.4 10^3/ul (0.3-0.9); MYELOCYTES # 0.1; NEUTROPHIL # 4.9 10^3/ul (1.6-7.5)
--- NOTE | 2016-12-22 12:06 | CONS ---
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, likely related to compression from surgical clips - SBO now resolved - Respiratory failure- will be able to be weaned - VT/VF events Recommendations: - cont asa 81mg daily - add plavix 75 mg daily - IVF as needed - K>4, Mg>2 - Resume amiodarone PO for now - eventual beta blockers - if renal function improves will consider ACEi/ARB or isordil/hydralazine combo - if further electrical instability consider mexilitine - cont icu monitoring Consultation Date/Type/Reason Admit Date/Time Dec 16, 2016 at 17:40 Initial Consult Date 12/21/16 Type of Consultation: Cardiology Referring Provider: JULIANNE ESTRELLA MD 24 HR Interval Summary Subjective hx not possible: pt critical status Constitutional: chills, improved Exam/Review of Systems Vital Signs Vitals Vital Signs Date Time Temp Pulse Resp B/P Pulse Ox O2 Delivery O2 Flow Rate FiO2 12/22/16 10:15 68 20 115/60 100 12/22/16 10:00 Mechanical Ventilator 12/22/16 08:00 97.9 12/22/16 08:00 40 Intake and Output 12/21/16 12/21/16 12/22/16 15:00 23:00 07:00 Intake Total 77.50 ml 1060.45 ml 1342.4 ml Output Total 160 ml 290 ml 360 ml Balance -82.50 ml 770.45 ml 982.4 ml Exam Constitutional: alert, well developed Psych: nl mood/affect Head: atraumatic, normocephalic Eyes: nl conjunctiva ENMT: mucosa pink and moist, nl external ears & nose Neck: non-tender, supple Respiratory: other (intubated , coarse but clear without rales) Cardiovascular: regular rate and rhythm, No S3, No jugular venous distention (JVD) Gastrointestinal: nl liver, spleen, soft Musculoskeletal: nl extremities to inspection Extremities: normal pulses 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: REGISTERED MIDWIFE II-XII intact Results Result Diagram: 12/22/16 0730 12/22/16 0730 Results 24 hrs Laboratory Tests Test 12/21/16 14:09 12/21/16 16:15 12/21/16 17:58 12/22/16 00:35 Bedside Glucose 347 H 266 H 202 White Blood Count 12.7 #H Red Blood Count 2.41 L Hemoglobin 7.4 L Hematocrit 22.9 L Mean Corpuscular Volume 95.0 Mean Corpuscular Hemoglobin 30.7 Mean Corpuscular Hemoglobin Concent 32.3 Red Cell Distribution Width 18.1 H Platelet Count 219 Mean Platelet Volume 12.4 H Neutrophils % 90.0 H Band Neutrophils % 3.0 Lymphocytes % 2.0 L Monocytes % 4.0 Myelocytes % 1.0 H Neutrophils # 11.4 H Lymphocytes # 0.3 L Monocytes # 0.5 Myelocytes # 0.1 Macrocytosis FEW Tear Drop Cells FEW Ovalocytes 1+ Sodium Level 140 Potassium Level 3.6 Chloride Level 109 Carbon Dioxide Level 20 L Anion Gap 15 Blood Urea Nitrogen 54 H Creatinine 3.22 H Glucose Level 289 H Calcium Level 8.4 Test 12/22/16 06:20 12/22/16 07:30 Bedside Glucose 208 White Blood Count 7.0 # Red Blood Count 2.92 #L Hemoglobin 8.3 L Hematocrit 27.2 L Mean Corpuscular Volume 93.2 Mean Corpuscular Hemoglobin 28.4 L Mean Corpuscular Hemoglobin Concent 30.5 L Red Cell Distribution Width 17.7 H Platelet Count 136 #L Mean Platelet Volume 12.6 H Neutrophils % 70.0 Band Neutrophils % 9.0 H Lymphocytes % 9.0 L Monocytes % 6.0 Eosinophils % 2.0 Basophils % Metamyelocytes % 2.0 H Myelocytes % 2.0 H Nucleated Red Blood Cells % Neutrophils # 4.9 Lymphocytes # 0.6 L Monocytes # 0.4 Eosinophils # 0.1 Basophils # Metamyelocytes # 0.1 Myelocytes # 0.1 Nucleated Red Blood Cells # Differential Comment MANUAL DIFF Prothrombin Time 15.5 H Prothrombin Time Ratio 1.2 INR International Normalized Ratio 1.22 Activated Partial Thromboplast Time 36.1 H Sodium Level 141 Potassium Level 4.2 Chloride Level 115 H Carbon Dioxide Level 18 L Anion Gap 12 Blood Urea Nitrogen 52 H Creatinine 3.45 H Glucose Level 210 Calcium Level 8.0 L Phosphorus Level 3.7 Magnesium Level 2.6 H Total Bilirubin 0.2 Direct Bilirubin 0.00 Indirect Bilirubin 0.2 Aspartate Amino Transf (AST/SGOT) 128 H Alanine Aminotransferase (ALT/SGPT) 119 H Alkaline Phosphatase 43 Total Protein 5.7 L Albumin 3.0 L Globulin 2.70 Albumin/Globulin Ratio 1.11 Amylase Level 71 Lipase 265 Medications Medications Current Medications Ondansetron HCl (Zofran Inj) 4 mg Q6H PRN IV NAUSEA AND/OR VOMITING; Start at 16:00 Bisacodyl (Dulcolax Supp) 10 mg DAILY PRN [place] CONSTIPATION; Start 12/16/16 at 16 :00 Heparin Sodium (Porcine) (Heparin (5000 Units/0.5 ml)) 5,000 unit Q12 SC Last administered on 12/22/16 08:42; Admin Dose 5,000 UNIT; Start 12/16/16 at 21:00 Miscellaneous Information 1 ea NOTE XX ; Start 12/16/16 at 18:00 Glucose (Glutose) 15 gm Q15M PRN PO DECREASED GLUCOSE; Start 12/16/16 at 18:00 Glucose (Glutose) 22.5 gm Q15M PRN PO DECREASED GLUCOSE; Start 12/16/16 at 18: 00 Dextrose (D50w Syringe) 25 ml Q15M PRN IV DECREASED GLUCOSE; Start 12/16/16 at 18:00 Dextrose (D50w Syringe) 50 ml Q15M PRN IV DECREASED GLUCOSE; Start 12/16/16 at 18:00 Glucagon (Glucagen) 1 mg Q15M PRN IM DECREASED GLUCOSE; Start 12/16/16 at 18:00 Glucose (Glutose) 15 gm Q15M PRN BUCCAL DECREASED GLUCOSE; Start 12/16/16 at 18 :00 Insulin Aspart (Novolog Insulin Pen) (Adult SC Insulin - Moder... Q6 SC Last administered on 12/22/16 06:23; Admin Dose 4 UNIT; Start 12/17/16 at 00:00 Epoetin Magdiel (Epogen (Non Esrd/Non Oncology)) 10,000 units MoWeFr@17 SC Last administered on 12/21/16 18:14; Admin Dose 10,000 UNITS; Start 12/17/16 at 17: 00 Pantoprazole (Protonix Iv) 40 mg BID@18 IV Last administered on 12/22/16 06: 18; Admin Dose 40 MG; Start 12/17/16 at 18:00 Hydralazine HCl (Apresoline) 10 mg Q6 IV Last administered on 12/20/16 06:17; Admin Dose 10 MG; Start 12/17/16 at 13:30 Morphine Sulfate (morphine) 1 mg Q4H PRN IV PAIN LEVEL 1-5; Start 12/20/16 at 11:30 Nitroglycerin 1 tab 1 tab Q5M PRN SL ANGINA Last administered on 12/21/16 01: 06; Admin Dose 1 TAB; Start 12/21/16 at 00:30 Dopamine HCl/ Dextrose 250 ml @ 5.738 mls/ hr TITRATE IV Last administered on 12/21/16 08:44; Admin Dose 5.738 MLS/HR; Start 12/21/16 at 08:30 Dexmedetomidine HCl 200 mcg/ Sodium Chloride 50 ml @ 3.82 mls/hr TITRATE IV Last administered on 12/22/16 05:23; Admin Dose 7.65 MLS/HR; Start 12/21/16 at 08:30 Norepinephrine (Levophed) 250 ml @ 1.875 mls/ hr TITRATE IV Last administered on 12/22/16 01:09; Admin Dose 7.5 MLS/HR; Start 12/21/16 at 09:00 Clopidogrel Bisulfate (plaVIX) 75 mg DAILY PO Last administered on 12/22/16 08: 41; Admin Dose 75 MG; Start 12/22/16 at 09:00 Al Hydrox/Mg Hydrox/Simethicone (Mag-Al Plus) 30 ml Q4H PRN PO GASTROINTESTINAL UPSET; Start 12/21/16 at 12:00 Ondansetron HCl 4 mg 4 mg Q4H PRN IV NAUSEA AND/OR VOMITING; Start 12/21/16 at 12:00 Sodium Chloride (NS) 1,000 ml @ 100 mls/hr Q10H IV Last administered on 00:33; Admin Dose 100 MLS/HR; Start 12/21/16 at 14:00 Levothyroxine Sodium (Synthroid Iv) 25 mcg DAILY@06 IV ; Start 12/22/16 at 10:00 DEENA JONES MD Dec 22, 2016 12:06
--- NOTE | 2016-12-22 12:43 | CONS ---
Date/Time of Note Date/Time of Note DATE: 12/22/16 TIME: 12:37 Consult Date/Type/Reason Admit Date/Time Dec 16, 2016 at 17:40 Initial Consult Date 12/21/16 Type of Consultation: Pulm Ordering Provider: JULIANNE ESTRELLA MD Subjective Awake and alert on mechanical vent. Off pressors. [facility] results noted. Objective Vital Signs Date Time Temp Pulse Resp B/P Pulse Ox O2 Delivery O2 Flow Rate FiO2 12/22/16 10:15 68 20 115/60 100 12/22/16 10:00 Mechanical Ventilator 12/22/16 08:00 97.9 12/22/16 08:00 40 Intake and Output 12/21/16 12/21/16 12/22/16 15:00 23:00 07:00 Intake Total 77.50 ml 1060.45 ml 1342.4 ml Output Total 160 ml 290 ml 360 ml Balance -82.50 ml 770.45 ml 982.4 ml Exam HEENT: Neck supple; no JVD; no LAD CVS: RRR, S1 and S2 CHEST: Clear ABD: Soft, NT, + BS EXT: No c/c/e Results/Medications Result Diagram: 12/22/16 0730 12/22/16 0730 Results 24 hrs Laboratory Tests Test 12/21/16 14:09 12/21/16 16:15 12/21/16 17:58 12/22/16 00:35 Bedside Glucose 347 H 266 H 202 White Blood Count 12.7 #H Red Blood Count 2.41 L Hemoglobin 7.4 L Hematocrit 22.9 L Mean Corpuscular Volume 95.0 Mean Corpuscular Hemoglobin 30.7 Mean Corpuscular Hemoglobin Concent 32.3 Red Cell Distribution Width 18.1 H Platelet Count 219 Mean Platelet Volume 12.4 H Neutrophils % 90.0 H Band Neutrophils % 3.0 Lymphocytes % 2.0 L Monocytes % 4.0 Myelocytes % 1.0 H Neutrophils # 11.4 H Lymphocytes # 0.3 L Monocytes # 0.5 Myelocytes # 0.1 Macrocytosis FEW Tear Drop Cells FEW Ovalocytes 1+ Sodium Level 140 Potassium Level 3.6 Chloride Level 109 Carbon Dioxide Level 20 L Anion Gap 15 Blood Urea Nitrogen 54 H Creatinine 3.22 H Glucose Level 289 H Calcium Level 8.4 Test 12/22/16 06:20 12/22/16 07:30 Bedside Glucose 208 White Blood Count 7.0 # Red Blood Count 2.92 #L Hemoglobin 8.3 L Hematocrit 27.2 L Mean Corpuscular Volume 93.2 Mean Corpuscular Hemoglobin 28.4 L Mean Corpuscular Hemoglobin Concent 30.5 L Red Cell Distribution Width 17.7 H Platelet Count 136 #L Mean Platelet Volume 12.6 H Neutrophils % 70.0 Band Neutrophils % 9.0 H Lymphocytes % 9.0 L Monocytes % 6.0 Eosinophils % 2.0 Basophils % Metamyelocytes % 2.0 H Myelocytes % 2.0 H Nucleated Red Blood Cells % Neutrophils # 4.9 Lymphocytes # 0.6 L Monocytes # 0.4 Eosinophils # 0.1 Basophils # Metamyelocytes # 0.1 Myelocytes # 0.1 Nucleated Red Blood Cells # Differential Comment MANUAL DIFF Prothrombin Time 15.5 H Prothrombin Time Ratio 1.2 INR International Normalized Ratio 1.22 Activated Partial Thromboplast Time 36.1 H Sodium Level 141 Potassium Level 4.2 Chloride Level 115 H Carbon Dioxide Level 18 L Anion Gap 12 Blood Urea Nitrogen 52 H Creatinine 3.45 H Glucose Level 210 Calcium Level 8.0 L Phosphorus Level 3.7 Magnesium Level 2.6 H Total Bilirubin 0.2 Direct Bilirubin 0.00 Indirect Bilirubin 0.2 Aspartate Amino Transf (AST/SGOT) 128 H Alanine Aminotransferase (ALT/SGPT) 119 H Alkaline Phosphatase 43 Total Protein 5.7 L Albumin 3.0 L Globulin 2.70 Albumin/Globulin Ratio 1.11 Amylase Level 71 Lipase 265 Medications Current Medications Ondansetron HCl (Zofran Inj) 4 mg Q6H PRN IV NAUSEA AND/OR VOMITING; Start at 16:00 Bisacodyl (Dulcolax Supp) 10 mg DAILY PRN [place] CONSTIPATION; Start 12/16/16 at 16 :00 Heparin Sodium (Porcine) (Heparin (5000 Units/0.5 ml)) 5,000 unit Q12 SC Last administered on 12/22/16t 08:42; Admin Dose 5,000 UNIT; Start 12/16/16 at 21:00 Miscellaneous Information 1 ea NOTE XX ; Start 12/16/16 at 18:00 Glucose (Glutose) 15 gm Q15M PRN PO DECREASED GLUCOSE; Start 12/16/16 at 18:00 Glucose (Glutose) 22.5 gm Q15M PRN PO DECREASED GLUCOSE; Start 12/16/16 at 18: 00 Dextrose (D50w Syringe) 25 ml Q15M PRN IV DECREASED GLUCOSE; Start 12/16/16 at 18:00 Dextrose (D50w Syringe) 50 ml Q15M PRN IV DECREASED GLUCOSE; Start 12/16/16 at 18:00 Glucagon (Glucagen) 1 mg Q15M PRN IM DECREASED GLUCOSE; Start 12/16/16 at 18:00 Glucose (Glutose) 15 gm Q15M PRN BUCCAL DECREASED GLUCOSE; Start 12/16/16 at 18 :00 Insulin Aspart (Novolog Insulin Pen) (Adult SC Insulin - Moder... Q6 SC Last administered on 12/22/16 06:23; Admin Dose 4 UNIT; Start 12/17/16 at 00:00 Epoetin Magdiel (Epogen (Non Esrd/Non Oncology)) 10,000 units MoWeFr@17 SC Last administered on 12/21/16 18:14; Admin Dose 10,000 UNITS; Start 12/17/16 at 17: 00 Pantoprazole (Protonix Iv) 40 mg BID@06,18 IV Last administered on 12/22/16 06: 18; Admin Dose 40 MG; Start 12/17/16 at 18:00 Hydralazine HCl (Apresoline) 10 mg Q6 IV Last administered on 12/20/16 06:17; Admin Dose 10 MG; Start 12/17/16 at 13:30 Morphine Sulfate (morphine) 1 mg Q4H PRN IV PAIN LEVEL 1-5; Start 12/20/16 at 11:30 Nitroglycerin 1 tab 1 tab Q5M PRN SL ANGINA Last administered on 12/21/16 01: 06; Admin Dose 1 TAB; Start 12/21/16 at 00:30 Dopamine HCl/ Dextrose 250 ml @ 5.738 mls/ hr TITRATE IV Last administered on 12/21/16 08:44; Admin Dose 5.738 MLS/HR; Start 12/21/16 at 08:30 Dexmedetomidine HCl 200 mcg/ Sodium Chloride 50 ml @ 3.82 mls/hr TITRATE IV Last administered on 12/22/16 05:23; Admin Dose 7.65 MLS/HR; Start 12/21/16 at 08:30 Norepinephrine (Levophed) 250 ml @ 1.875 mls/ hr TITRATE IV Last administered on 12/22/16 01:09; Admin Dose 7.5 MLS/HR; Start 12/21/16 at 09:00 Clopidogrel Bisulfate (plaVIX) 75 mg DAILY PO Last administered on 12/22/16 08: 41; Admin Dose 75 MG; Start 12/22/16 at 09:00 Al Hydrox/Mg Hydrox/Simethicone (Mag-Al Plus) 30 ml Q4H PRN PO GASTROINTESTINAL UPSET; Start 12/21/16 at 12:00 Ondansetron HCl 4 mg 4 mg Q4H PRN IV NAUSEA AND/OR VOMITING; Start 12/21/16 at 12:00 Sodium Chloride (NS) 1,000 ml @ 100 mls/hr Q10H IV Last administered on 00:33; Admin Dose 100 MLS/HR; Start 12/21/16 at 14:00 Levothyroxine Sodium (Synthroid Iv) 25 mcg DAILY@06 IV ; Start 12/22/16 at 10:00 Amiodarone HCl (Cordarone) 200 mg BID NGT ; Start 12/22/16 at 12:30 Magnesium Oxide (Mag-Ox 400) 400 mg DAILY NGT ; Start 12/22/16 at 12:30 Assessment/Plan Additional Assessment/Plan IMP: 1. Respiratory Failure/Vent--etiology of his initial cardiopulmonary arrest unclear, however, concerning for an aspiration event leading to a NSTEMI 2. s/p NSTEMI 3. CKD 4. RLL infiltrate--? etiology aspiration 5. Anemia 6. SBO RECS: 1. Abx with zosyn IV 2. CPAP 5 PS 8 3. Consider extubation if he does well on weaning 4. NG to LIS 5. Case d/w family in detail. 35 min cc time ALONDRA LIN MD Dec 22, 2016 12:43
[2016-12-22] MEDS: LEVOTHYROXINE 100 MCG VIAL IV SCH (12:52)
[2016-12-22] MEDS: MAGNESIUM OXIDE 400 MG TAB NGT SCH (12:53)
[2016-12-22] MEDS: AMIODARONE 200 MG TAB NGT SCH ×2 (12:54→21:38)
[2016-12-22] MEDS: PIPER-TAZO 2.25 GM (PMX) 50 ML IVPB SCH ×2 (13:35→21:39)
[2016-12-22 14:41] LABS: AADO2 Arterial 81.2 mmHg (7.0-24.0); Allen Test ACCEPTAB; Arterial Base Excess -4.6 mmol/L (-3.0-3); Arterial COHb 0.3 % (0.0-3.0); Arterial Fraction of Oxyhgb 97.6 % (93.0-99.0); Arterial HCO3 19.4 mmol/L (22.0-26.0); Arterial MetHb 0.6 % (0.0-1.5); Arterial Total Hemglobin 8.8 g/dl (12.0-18.0); Blood Gas PS 8; MODE VENT - CPAP
--- NOTE | 2016-12-22 19:54 | PN ---
Date/Time of Note Date/Time of Note DATE: 12/22/16 TIME: 16:40 Assessment/Plan Lines/Catheters IV Catheter Type (from Nrsg): Saline Lock Marcum in Place (from Nrsg): Yes Assessment/Plan Assessment/Plan [facility] Progress Note Date of Service: 12/22/16 Today's Impression & Plan: Overall improved after his primary cardiac event. Extubated and abd remains benign. No indication for acute surgical intervention for his abdomen. Prognosis is improved. NG output minimal. Can be d/c'd and if patient passes swallowing test, he may start liquid intake. With above assessment, I've recommended the following for today: 1. D/c NG 2. Beside swallow test 3. Clear liquid diet if passes above 4. Cont medical cares Thank you again for your great care of this very pleasant patient and wonderful family. If there are any questions, please feel free to call me at [phone]. TOTAL VISIT TIME: 20 minutes of which more than half was spent in [id number] discussion with the patient, possibly including family, as well as coordination of care between multiple physicians and providers. Disclaimer: Inadvertent spelling or grammatical errors are likely due to EHR/ dictation software use and do not reflect on the overall quality of patient care. Updated Clinical Summary: The patient is a very pleasant 81-year-old gentleman with comorbidities including BMI 25.6 and prior appendectomy as well as coronary artery disease status post bypass grafting, presenting to [facility] through the emergency department with abdominal pain, nausea, and vomiting. Cardiac event (? arrhythmia with rise in troponin) morning hours on 12/21/16 requiring intubation and transfer to ICU. Extubated 12/22/16. COMORBIDITIES: 1. BMI 25.6. 2. Status post coronary artery bypass graft surgery. 3. Status post appendectomy. 4. Hypertension. 5. Hypothyroidism. 6. Dyslipidemia. 7. Myelofibrosis. 8. Colon polyps. 9. Diverticulosis. 10. Diabetes. 11. Cardiac event am 12/21/16 requiring intubation and transfer to ICU at [facility]; extubated 12/22/16 Subjective: No major events or complaints overnight. Extubated and reports feeling ok. No abd pain. No nausea or vomiting. + bowel activity. - activity. Objective: Vitals: See below Exam: GENERAL: On exam, the patient was laying in bed and appeared to be comfortable and in no acute distress. ABDOMEN: Soft, nontender and nondistended. NG bilious with minimal output. There are no peritoneal signs or guarding. SKIN: Skin appears to be pink and feels warm to touch. NEUROLOGIC: Patient is on Propofol and unresponsive on the vent. Exam/Review of Systems Vital Signs Vitals Vital Signs Date Time Temp Pulse Resp B/P Pulse Ox O2 Delivery O2 Flow Rate FiO2 12/22/16 18:00 74 20 97/80 95 Mechanical Ventilator 12/22/16 16:00 4.0 12/22/16 16:00 97.6 12/22/16 14:35 40 Intake and Output 12/21/16 12/21/16 12/22/16 15:00 23:00 07:00 Intake Total 77.50 ml 1060.45 ml 1342.4 ml Output Total 160 ml 290 ml 360 ml Balance -82.50 ml 770.45 ml 982.4 ml Results Result Diagram: 12/22/16 0730 12/22/16 0730 JUMANA MONTANA M.D. Dec 22, 2016 19:53
[2016-12-22] MEDS: ZOLPIDEM 5 MG TAB PO PRN (22:54)
[2016-12-23] VITALS (28 sets, daily range): BP systolic 90–154; BP diastolic 51–89; PULSE 72–102; RESP 22–42
[2016-12-23] MEDS: SOD CHLORIDE 0.9% 1,000 ML IV SCH (00:54)
[2016-12-23 04:55] LABS: AADO2 Arterial 128.3 mmHg (7.0-24.0); Allen Test ACCEPTAB; Arterial Base Excess -7.7 mmol/L (-3.0-3); Arterial COHb 0.4 % (0.0-3.0); Arterial Fraction of Oxyhgb 92.9 % (93.0-99.0); Arterial HCO3 16.6 mmol/L (22.0-26.0); Arterial MetHb 0.6 % (0.0-1.5); Arterial Total Hemglobin 9.2 g/dl (12.0-18.0); MODE NASAL CANNULA
[2016-12-23 04:56] LABS: ADD SCAN DIFF NO
[2016-12-23 05:11] LABS: ABNORMAL IP MESSAGE 1; BASOPHILS % 0.2 % (0.0-2.0); EOSINOPHILS # 0.1 10^3/ul (0.0-0.5); EOSINOPHILS % 1.4 % (0.0-7.0); HEMOGLOBIN 7.6 g/dl (14.0-18.0); LYMPHOCYTES # 0.5 10^3/ul (0.8-2.9); LYMPHOCYTES % 7.4 % (15.0-51.0); MEAN CORPUSCULAR HEMOGLOBIN 28.5 pg (29.0-33.0); MEAN CORPUSCULAR HGB CONC 30.4 g/dl (32.0-37.0); MEAN CORPUSCULAR VOLUME 93.6 fl (82.0-101.0); MEAN PLATELET VOLUME 13.7 fl (7.4-10.4); MONOCYTE # 0.7 10^3/ul (0.3-0.9); MONOCYTES % 11.5 % (0.0-11.0); NEUTROPHIL # 4.8 10^3/ul (1.6-7.5); NEUTROPHILS % 74.8 % (39.0-77.0); NUCLEATED RED BLOOD CELLS # 0.1 10^3/ul (0.0-0.0); NUCLEATED RED BLOOD CELLS% 1.4 /100WBC (0.0-0.0); PLATELET COUNT 120 10^3/UL (140-415); RED BLOOD COUNT 2.67 10^6/ul (4.70-6.10); RED CELL DISTRIBUTION WIDTH 18.7 % (11.5-14.5); WHITE BLOOD COUNT 6.5 10^3/ul (4.8-10.8)
[2016-12-23] MEDS: hydrALAzine 20 MG INJ IV SCH ×4 (05:31→17:53)
[2016-12-23] MEDS: LEVOTHYROXINE 100 MCG VIAL IV SCH (05:37)
[2016-12-23] MEDS: PANTOPRAZOLE 40 MG INJ IV SCH ×2 (05:37→17:52)
[2016-12-23] MEDS: PIPER-TAZO 2.25 GM (PMX) 50 ML IVPB SCH ×3 (05:37→22:06)
[2016-12-23 05:39] LABS: POTASSIUM 3.9 mmol/L (3.5-5.1)
[2016-12-23] MEDS: Insulin NOVOLOG SS MODERATE Algorithm(NPO/TPN/ENTERAL FEEDS) SC SCH ×3 (05:40→17:51)
[2016-12-23 05:42] LABS: CREATININE 4.33 mg/dl (0.61-1.24)
[2016-12-23 05:43] LABS: CALCIUM 7.5 mg/dl (8.4-10.2); MAGNESIUM 2.6 mg/dl (1.7-2.5); PHOSPHORUS 3.4 mg/dl (2.5-4.9)
--- NOTE | 2016-12-23 07:34 | PN ---
Date/Time of Note Date/Time of Note DATE: 12/23/16 TIME: 07:31 Assessment/Plan Lines/Catheters IV Catheter Type (from Nrsg): Saline Lock Marcum in Place (from Nrsg): Yes Assessment/Plan Assessment/Plan [facility] Progress Note Date of Service: 12/23/16 Today's Impression & Plan: Overall stable and continues to improve. Remains extubated and abd continues to be benign. + return of bowel function. No indication for acute surgical intervention for his abdomen. Prognosis is improved. Base deficit increase and drop in Hg noted. ? GI source vs others for the Hg. With above assessment, I've recommended the following for today: 1. Avance diet to regular as tolerated 2. Increase activity 3. Monitor and investigate acidemia and drop in Hg 4. Cont medical cares Thank you again for your great care of this very pleasant patient and wonderful family. If there are any questions, please feel free to call me at [phone]. TOTAL VISIT TIME: 20 minutes of which more than half was spent in [id number] discussion with the patient, possibly including family, as well as coordination of care between multiple physicians and providers. Disclaimer: Inadvertent spelling or grammatical errors are likely due to EHR/ dictation software use and do not reflect on the overall quality of patient care. Updated Clinical Summary: The patient is a very pleasant 81-year-old gentleman with comorbidities including BMI 25.6 and prior appendectomy as well as coronary artery disease status post bypass grafting, presenting to [facility] through the emergency department with abdominal pain, nausea, and vomiting. Cardiac event (? arrhythmia with rise in troponin) morning hours on 12/21/16 requiring intubation and transfer to ICU. Extubated 12/22/16. COMORBIDITIES: 1. BMI 25.6. 2. Status post coronary artery bypass graft surgery. 3. Status post appendectomy. 4. Hypertension. 5. Hypothyroidism. 6. Dyslipidemia. 7. Myelofibrosis. 8. Colon polyps. 9. Diverticulosis. 10. Diabetes. 11. Cardiac event am 12/21/16 requiring intubation and transfer to ICU at [facility]; extubated 12/22/16 Subjective: No major events or complaints overnight. Extubated and reports feeling ok. No abd pain. No nausea or vomiting. + bowel activity. - activity. Objective: Vitals: See below Exam: GENERAL: On exam, the patient was laying in bed and appeared to be comfortable and in no acute distress. ABDOMEN: Soft, nontender and nondistended. There are no peritoneal signs or guarding. SKIN: Skin appears to be pink and feels warm to touch. NEUROLOGIC: Awake, alert and follows commands appropriately. Exam/Review of Systems Vital Signs Vitals Vital Signs Date Time Temp Pulse Resp B/P Pulse Ox O2 Delivery O2 Flow Rate FiO2 12/23/16 07:00 25 111/58 97 Nasal Cannula 2.0 12/23/16 06:00 72 12/23/16 04:00 98.6 12/22/16 14:35 40 Intake and Output 12/22/16 12/22/16 12/23/16 15:00 23:00 07:00 Intake Total 1099.10 ml 1220 ml 800 ml Output Total 420 ml 220 ml 150 ml Balance 679.10 ml 1000 ml 650 ml Results Result Diagram: 12/23/16 0430 12/23/16 0430 JUMANA MONTANA M.D. Dec 23, 2016 07:34
[2016-12-23] MEDS: MAGNESIUM OXIDE 400 MG TAB NGT SCH (08:29)
[2016-12-23] MEDS: CLOPIDOGREL 75 MG TAB PO SCH (08:29)
[2016-12-23] MEDS: AMIODARONE 200 MG TAB NGT SCH ×2 (08:29→20:06)
[2016-12-23] MEDS: HEPARIN 5,000 UNIT/0.5 ML VIAL SC SCH ×2 (08:30→20:12)
[2016-12-23 10:45] LABS: HEMATOCRIT 24.8 % (42.0-52.0); HEMOGLOBIN 7.8 g/dl (14.0-18.0)
[2016-12-23] MEDS ORDERED: NA BICARBONATE 8.4% 50 ML SYG IV ONE (11:00)
[2016-12-23] MEDS ORDERED: ALLOPURINOL 100 MG TAB PO ONE (11:00)
[2016-12-23] MEDS ORDERED: METOPROLOL (XL) 50 MG TAB PO SCH (11:00)
--- NOTE | 2016-12-23 11:00 | PN ---
Date/Time of Note Date/Time of Note DATE: 12/23/16 TIME: 10:56 Assessment/Plan VTE Prophylaxis VTE Prophylaxis Intervention: other Lines/Catheters IV Catheter Type (from Nrsg): Saline Lock Urinary Cath still in place: Yes Reason Cath still needed: urinary retention Assessment/Plan Assessment/Plan 1. Post CA, stable with dysrhythmias and no evid chf 2. Anemia has inc, repeat h and h pending, stool ob ob pending 3. Pneumonia, ?, per pul, abx started 4. Respir failure, extubated yesterday 5. SBO resolved 6. Right upper extrem swell, nivvs ordered 5. CKD and now not unexpected acute renal failure with combined respir alk and met alk, will add bicarb today and change iv Subjective 24 Hr Interval Summary Respiratory: No shortness of breath Cardiovascular: No chest pain Gastrointestinal: no complaints Genitourinary: other (robles in place) Exam/Review of Systems Vital Signs Vitals Vital Signs Date Time Temp Pulse Resp B/P Pulse Ox O2 Delivery O2 Flow Rate FiO2 12/23/16 10:00 79 31 121/65 95 Nasal Cannula 2.0 12/23/16 08:00 98.1 12/22/16 14:35 40 Intake and Output 12/22/16 12/22/16 12/23/16 15:00 23:00 07:00 Intake Total 1099.10 ml 1220 ml 800 ml Output Total 420 ml 220 ml 150 ml Balance 679.10 ml 1000 ml 650 ml Exam Neck: No jvd Respiratory: clear to auscultation, diminished breath sounds Cardiovascular: regular rate and rhythm Gastrointestinal: other (sl distended, not tender, bs present) Extremities: No edema 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: No focal weakness (and oriented to time and place and recent events) Results Result Diagram: 12/23/16 1030 12/23/16 0430 Results 24 hrs Laboratory Tests Test 12/22/16 12:47 12/22/16 14:30 12/22/16 17:36 12/22/16 23:02 Bedside Glucose 221 H 185 187 Blood Gas Specimen Source Blood arterial Arterial Blood Date Drawn 12/22/2016 2:32:06 PM Arterial Blood pH (Temp corrected) 7.407 Arterial Blood pCO2 (Temp correct) 31.6 L Arterial Blood pO2 (Temp corrected) 167.7 H Arterial Blood HCO3 19.4 L Arterial Blood Base Excess -4.6 L Arterial Blood Oxygen Saturation 98.5 Oniel Test ACCEPTAB Arterial Blood Gas Puncture Site Right Radial Arterial Blood Carboxyhemoglobin 0.3 Arterial Blood Methemoglobin 0.6 Blood Gas A-a O2 Differential 81.2 H Oxyhemoglobin Percent 97.6 Total Hemoglobin 8.8 L Blood Gas Temperature 37.0 Blood Gas Actual Respiration Rate 25 Blood Gas Modality VENT - CPAP FiO2 40.0 Blood Gas Low PEEP Setting 5.0 Blood Gas Pressure Support 8 Blood Gas Notified Sheramn DELCID RCP Blood Gas Notified Time 12/22/2016 2:41:05 PM Test 12/23/16 04:30 12/23/16 05:00 12/23/16 05:39 12/23/16 10:30 White Blood Count 6.5 Red Blood Count 2.67 L Hemoglobin 7.6 L 7.8 L Hematocrit 25.0 L 24.8 L Mean Corpuscular Volume 93.6 Mean Corpuscular Hemoglobin 28.5 L Mean Corpuscular Hemoglobin Concent 30.4 L Red Cell Distribution Width 18.7 H Platelet Count 120 L Mean Platelet Volume 13.7 H Neutrophils % 74.8 Lymphocytes % 7.4 L Monocytes % 11.5 H Eosinophils % 1.4 Basophils % 0.2 Nucleated Red Blood Cells % 1.4 H Neutrophils # 4.8 Lymphocytes # 0.5 L Monocytes # 0.7 Eosinophils # 0.1 Basophils # 0.0 Nucleated Red Blood Cells # 0.1 H Sodium Level 140 Potassium Level 3.9 Chloride Level 116 H Carbon Dioxide Level 19 L Anion Gap 9 Blood Urea Nitrogen 62 H Creatinine 4.33 H Glucose Level 152 Lactic Acid Level 0.6 Calcium Level 7.5 L Phosphorus Level 3.4 Magnesium Level 2.6 H Blood Gas Specimen Source Blood arterial Arterial Blood Date Drawn 12/23/2016 4:44:29 AM Arterial Blood pH (Temp corrected) 7.370 Arterial Blood pCO2 (Temp correct) 29.4 L Arterial Blood pO2 (Temp corrected) 72.7 L Arterial Blood HCO3 16.6 L Arterial Blood Base Excess -7.7 L Arterial Blood Oxygen Saturation 93.8 L Oniel Test ACCEPTAB Arterial Blood Gas Puncture Site Right Radial Arterial Blood Carboxyhemoglobin 0.4 Arterial Blood Methemoglobin 0.6 Blood Gas A-a O2 Differential 128.3 H Oxyhemoglobin Percent 92.9 L Total Hemoglobin 9.2 L Blood Gas Temperature 37.0 Blood Gas Modality NASAL CANNULA FiO2 33.0 Blood Gas Notified Whom LW Blood Gas Notified Time 12/23/2016 4:55:03 AM Bedside Glucose 175 Medications Medications Current Medications Ondansetron HCl (Zofran Inj) 4 mg Q6H PRN IV NAUSEA AND/OR VOMITING; Start at 16:00 Bisacodyl (Dulcolax Supp) 10 mg DAILY PRN [place] CONSTIPATION; Start 12/16/16 at 16 :00 Heparin Sodium (Porcine) (Heparin (5000 Units/0.5 ml)) 5,000 unit Q12 SC Last administered on 12/23/16 08:30; Admin Dose 5,000 UNIT; Start 12/16/16 at 21:00 Miscellaneous Information 1 ea NOTE XX ; Start 12/16/16 at 18:00 Glucose (Glutose) 15 gm Q15M PRN PO DECREASED GLUCOSE; Start 12/16/16 at 18:00 Glucose (Glutose) 22.5 gm Q15M PRN PO DECREASED GLUCOSE; Start 12/16/16 at 18: 00 Dextrose (D50w Syringe) 25 ml Q15M PRN IV DECREASED GLUCOSE; Start 12/16/16 at 18:00 Dextrose (D50w Syringe) 50 ml Q15M PRN IV DECREASED GLUCOSE; Start 12/16/16 at 18:00 Glucagon (Glucagen) 1 mg Q15M PRN IM DECREASED GLUCOSE; Start 12/16/16 at 18:00 Glucose (Glutose) 15 gm Q15M PRN BUCCAL DECREASED GLUCOSE; Start 12/16/16 at 18 :00 Insulin Aspart (Novolog Insulin Pen) (Adult SC Insulin - Moder... Q6 SC Last administered on 12/23/16 05:40; Admin Dose 2 UNIT; Start 12/17/16 at 00:00 Epoetin Magdiel (Epogen (Non Esrd/Non Oncology)) 10,000 units MoWeFr@17 SC Last administered on 12/21/16 18:14; Admin Dose 10,000 UNITS; Start 12/17/16 at 17: 00 Pantoprazole (Protonix Iv) 40 mg BID@06,18 IV Last administered on 12/23/16 05: 37; Admin Dose 40 MG; Start 12/17/16 at 18:00 Hydralazine HCl (Apresoline) 10 mg Q6 IV Last administered on 12/20/16 06:17; Admin Dose 10 MG; Start 12/17/16 at 13:30 Morphine Sulfate (morphine) 1 mg Q4H PRN IV PAIN LEVEL 1-5; Start 12/20/16 at 11:30 Nitroglycerin 1 tab 1 tab Q5M PRN SL ANGINA Last administered on 12/21/16 01: 06; Admin Dose 1 TAB; Start 12/21/16 at 00:30 Dopamine HCl/ Dextrose 250 ml @ 5.738 mls/ hr TITRATE IV Last administered on 12/21/16 08:44; Admin Dose 5.738 MLS/HR; Start 12/21/16 at 08:30 Dexmedetomidine HCl/Sodium Chloride (Precedex/NS) 50 ml @ 3.82 mls/hr TITRATE IV Last administered on 12/22/16 12:54; Admin Dose 7.65 MLS/HR; Start 12/21/16 at 08:30 Clopidogrel Bisulfate (plaVIX) 75 mg DAILY PO Last administered on 12/23/16 08: 29; Admin Dose 75 MG; Start 12/22/16 at 09:00 Al Hydrox/Mg Hydrox/Simethicone (Mag-Al Plus) 30 ml Q4H PRN PO GASTROINTESTINAL UPSET; Start 12/21/16 at 12:00 Ondansetron HCl (Zofran Inj) 4 mg Q4H PRN IV NAUSEA AND/OR VOMITING; Start at 12:00 Levothyroxine Sodium (Synthroid Iv) 25 mcg DAILY@06 IV Last administered on 12/23 05:37; Admin Dose 25 MCG; Start 12/22/16 at 10:00 Amiodarone HCl (Cordarone) 200 mg BID NGT Last administered on 12/23/16 08:29; Admin Dose 200 MG; Start 12/22/16 at 12:30 Magnesium Oxide 400 mg 400 mg DAILY NGT Last administered on 12/23/16 08:29; Admin Dose 400 MG; Start 12/22/16 at 12:30 Piperacillin Sod/ Tazobactam Sod 50 ml @ 100 mls/hr Q8 IVPB Last administered on 12/23/16 05:37; Admin Dose 100 MLS/HR; Start 12/22/16 at 14:00 Norepinephrine/ Dextrose (Levophed/D5W) 500 ml @ 1.87 mls/hr TITRATE IV ; Start 12/22/16 at 17:00 Zolpidem Tartrate (Ambien) 5 mg HS PRN PO INSOMNIA Last administered on t 22:54; Admin Dose 5 MG; Start 12/22/16 at 22:00 Atorvastatin Calcium (Lipitor) 40 mg HS PO ; Start 12/23/16 at 21:00; Status UNV JULIANNE ESTRELLA MD Dec 23, 2016 11:00
--- NOTE | 2016-12-23 11:33 | CONS ---
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, likely related to compression from surgical clips - SBO now resolved - Respiratory failure- will be able to be weaned - VT/VF events Recommendations: - cont asa 81mg daily and plavix 75 mg daily - careful fluid status - Maintain K>4, Mg>2 - Continue on amiodarone PO for now - Titrate up beta blockers - if renal function improves will consider ACEi/ARB or consider isordil/ hydralazine combo for CHF - if further electrical instability consider mexilitine Consultation Date/Type/Reason Admit Date/Time Dec 16, 2016 at 17:40 Initial Consult Date 12/21/16 Type of Consultation: Cardiology Referring Provider: JULIANNE ESTRELLA MD 24 HR Interval Summary Constitutional: improved Exam/Review of Systems Vital Signs Vitals Vital Signs Date Time Temp Pulse Resp B/P Pulse Ox O2 Delivery O2 Flow Rate FiO2 12/23/16 10:00 79 31 121/65 95 Nasal Cannula 2.0 12/23/16 08:00 98.1 12/22/16 14:35 40 Intake and Output 12/22/16 12/22/16 12/23/16 15:00 23:00 07:00 Intake Total 1099.10 ml 1220 ml 800 ml Output Total 420 ml 220 ml 150 ml Balance 679.10 ml 1000 ml 650 ml Exam Constitutional: alert, oriented, well developed Psych: nl mood/affect Head: atraumatic, normocephalic Eyes: nl conjunctiva Neck: jvd (10), non-tender, supple Respiratory: congested cough, crackles/rales, diminished breath sounds Cardiovascular: nl pulses, regular rate and rhythm Gastrointestinal: nl liver, spleen 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: FAMILY [employer]IVING EDUCATOR II-XII intact Results Result Diagram: 12/23/16 1030 12/23/16 0430 Results 24 hrs Laboratory Tests Test 12/22/16 12:47 12/22/16 14:30 12/22/16 17:36 12/22/16 23:02 Bedside Glucose 221 H 185 187 Blood Gas Specimen Source Blood arterial Arterial Blood Date Drawn 12/22/2016 2:32:06 PM Arterial Blood pH (Temp corrected) 7.407 Arterial Blood pCO2 (Temp correct) 31.6 L Arterial Blood pO2 (Temp corrected) 167.7 H Arterial Blood HCO3 19.4 L Arterial Blood Base Excess -4.6 L Arterial Blood Oxygen Saturation 98.5 Oniel Test ACCEPTAB Arterial Blood Gas Puncture Site Right Radial Arterial Blood Carboxyhemoglobin 0.3 Arterial Blood Methemoglobin 0.6 Blood Gas A-a O2 Differential 81.2 H Oxyhemoglobin Percent 97.6 Total Hemoglobin 8.8 L Blood Gas Temperature 37.0 Blood Gas Actual Respiration Rate 25 Blood Gas Modality VENT - CPAP FiO2 40.0 Blood Gas Low PEEP Setting 5.0 Blood Gas Pressure Support 8 Blood Gas Notified Whom FLORES DELCID Blood Gas Notified Time 12/22/2016 2:41:05 PM Test 12/23/16 04:30 12/23/16 05:00 12/23/16 05:39 12/23/16 10:30 White Blood Count 6.5 Red Blood Count 2.67 L Hemoglobin 7.6 L 7.8 L Hematocrit 25.0 L 24.8 L Mean Corpuscular Volume 93.6 Mean Corpuscular Hemoglobin 28.5 L Mean Corpuscular Hemoglobin Concent 30.4 L Red Cell Distribution Width 18.7 H Platelet Count 120 L Mean Platelet Volume 13.7 H Neutrophils % 74.8 Lymphocytes % 7.4 L Monocytes % 11.5 H Eosinophils % 1.4 Basophils % 0.2 Nucleated Red Blood Cells % 1.4 H Neutrophils # 4.8 Lymphocytes # 0.5 L Monocytes # 0.7 Eosinophils # 0.1 Basophils # 0.0 Nucleated Red Blood Cells # 0.1 H Sodium Level 140 Potassium Level 3.9 Chloride Level 116 H Carbon Dioxide Level 19 L Anion Gap 9 Blood Urea Nitrogen 62 H Creatinine 4.33 H Glucose Level 152 Lactic Acid Level 0.6 Calcium Level 7.5 L Phosphorus Level 3.4 Magnesium Level 2.6 H Blood Gas Specimen Source Blood arterial Arterial Blood Date Drawn 12/23/2016 4:44:29 AM Arterial Blood pH (Temp corrected) 7.370 Arterial Blood pCO2 (Temp correct) 29.4 L Arterial Blood pO2 (Temp corrected) 72.7 L Arterial Blood HCO3 16.6 L Arterial Blood Base Excess -7.7 L Arterial Blood Oxygen Saturation 93.8 L Oniel Test ACCEPTAB Arterial Blood Gas Puncture Site Right Radial Arterial Blood Carboxyhemoglobin 0.4 Arterial Blood Methemoglobin 0.6 Blood Gas A-a O2 Differential 128.3 H Oxyhemoglobin Percent 92.9 L Total Hemoglobin 9.2 L Blood Gas Temperature 37.0 Blood Gas Modality NASAL CANNULA FiO2 33.0 Blood Gas Notified Whom LW Blood Gas Notified Time 12/23/2016 4:55:03 AM Bedside Glucose 175 Medications Medications Current Medications Ondansetron HCl (Zofran Inj) 4 mg Q6H PRN IV NAUSEA AND/OR VOMITING; Start at 16:00 Bisacodyl (Dulcolax Supp) 10 mg DAILY PRN [place] CONSTIPATION; Start 12/16/16 at 16 :00 Heparin Sodium (Porcine) (Heparin (5000 Units/0.5 ml)) 5,000 unit Q12 SC Last administered on 12/23/16 08:30; Admin Dose 5,000 UNIT; Start 12/16/16 at 21:00 Miscellaneous Information 1 ea NOTE XX ; Start 12/16/16 at 18:00 Glucose (Glutose) 15 gm Q15M PRN PO DECREASED GLUCOSE; Start 12/16/16 at 18:00 Glucose (Glutose) 22.5 gm Q15M PRN PO DECREASED GLUCOSE; Start 12/16/16 at 18: 00 Dextrose (D50w Syringe) 25 ml Q15M PRN IV DECREASED GLUCOSE; Start 12/16/16 at 18:00 Dextrose (D50w Syringe) 50 ml Q15M PRN IV DECREASED GLUCOSE; Start 12/16/16 at 18:00 Glucagon (Glucagen) 1 mg Q15M PRN IM DECREASED GLUCOSE; Start 12/16/16 at 18:00 Glucose (Glutose) 15 gm Q15M PRN BUCCAL DECREASED GLUCOSE; Start 12/16/16 at 18 :00 Insulin Aspart (Novolog Insulin Pen) (Adult SC Insulin - Moder... Q6 SC Last administered on 12/23/16 05:40; Admin Dose 2 UNIT; Start 12/17/16 at 00:00 Epoetin Magdiel (Epogen (Non Esrd/Non Oncology)) 10,000 units MoWeFr@17 SC Last administered on 12/21/16 18:14; Admin Dose 10,000 UNITS; Start 12/17/16 at 17: 00 Pantoprazole (Protonix Iv) 40 mg BID@06,18 IV Last administered on 12/23/16 05: 37; Admin Dose 40 MG; Start 12/17/16 at 18:00 Hydralazine HCl (Apresoline) 10 mg Q6 IV Last administered on 12/20/16 06:17; Admin Dose 10 MG; Start 12/17/16 at 13:30 Morphine Sulfate (morphine) 1 mg Q4H PRN IV PAIN LEVEL 1-5; Start 12/20/16 at 11:30 Nitroglycerin 1 tab 1 tab Q5M PRN SL ANGINA Last administered on 12/21/16 01: 06; Admin Dose 1 TAB; Start 12/21/16 at 00:30 Dopamine HCl/ Dextrose 250 ml @ 5.738 mls/ hr TITRATE IV Last administered on 12/21/16 08:44; Admin Dose 5.738 MLS/HR; Start 12/21/16 at 08:30 Dexmedetomidine HCl/Sodium Chloride (Precedex/NS) 50 ml @ 3.82 mls/hr TITRATE IV Last administered on 12/22/16 12:54; Admin Dose 7.65 MLS/HR; Start 12/21/16 at 08:30 Clopidogrel Bisulfate (plaVIX) 75 mg DAILY PO Last administered on 12/23/16 08: 29; Admin Dose 75 MG; Start 12/22/16 at 09:00 Al Hydrox/Mg Hydrox/Simethicone (Mag-Al Plus) 30 ml Q4H PRN PO GASTROINTESTINAL UPSET; Start 12/21/16 at 12:00 Ondansetron HCl (Zofran Inj) 4 mg Q4H PRN IV NAUSEA AND/OR VOMITING; Start at 12:00 Levothyroxine Sodium (Synthroid Iv) 25 mcg DAILY@06 IV Last administered on 12/23 05:37; Admin Dose 25 MCG; Start 12/22/16 at 10:00 Amiodarone HCl (Cordarone) 200 mg BID NGT Last administered on 12/23/16 08:29; Admin Dose 200 MG; Start 12/22/16 at 12:30 Magnesium Oxide 400 mg 400 mg DAILY NGT Last administered on 12/23/16 08:29; Admin Dose 400 MG; Start 12/22/16 at 12:30 Piperacillin Sod/ Tazobactam Sod 50 ml @ 100 mls/hr Q8 IVPB Last administered on 12/23/16 05:37; Admin Dose 100 MLS/HR; Start 12/22/16 at 14:00 Norepinephrine/ Dextrose (Levophed/D5W) 500 ml @ 1.87 mls/hr TITRATE IV ; Start 12/22/16 at 17:00 Zolpidem Tartrate (Ambien) 5 mg HS PRN PO INSOMNIA Last administered on 22:54; Admin Dose 5 MG; Start 12/22/16 at 22:00 Atorvastatin Calcium (Lipitor) 40 mg HS PO ; Start 12/23/16 at 21:00 Metoprolol Succinate 50 mg 50 mg BID PO Last administered on 12/23/16 11:12; Admin Dose 50 MG; Start 12/23/16 at 11:00 Sodium Bicarbonate/ Sodium Chloride (Na Bicarb/09/24 NS) 1,050 ml @ 75 mls/hr Q14H IV ; Start 12/23/16 at 12:00 DEENA JONES MD Dec 23, 2016 11:33
[2016-12-23] MEDS ORDERED: SODIUM BICARBONATE (IV ADD) 50 MEQ in SOD CHLORIDE 0.45% 1,000 ML IV SCH (12:00)
--- NOTE | 2016-12-23 12:01 | CONS ---
Date/Time of Note Date/Time of Note DATE: 12/23/16 TIME: 11:58 Consult Date/Type/Reason Admit Date/Time Dec 16, 2016 at 17:40 Initial Consult Date 12/21/16 Type of Consultation: Pulm/CCM Ordering Provider: JULIANNE ESTRELLA MD Subjective No events s/p extubation. Doing well. Objective Vital Signs Date Time Temp Pulse Resp B/P Pulse Ox O2 Delivery O2 Flow Rate FiO2 12/23/16 10:00 79 31 121/65 95 Nasal Cannula 2.0 12/23/16 08:00 98.1 12/22/16 14:35 40 Intake and Output 12/22/16 12/22/16 12/23/16 15:00 23:00 07:00 Intake Total 1099.10 ml 1220 ml 800 ml Output Total 420 ml 220 ml 150 ml Balance 679.10 ml 1000 ml 650 ml Exam HEENT: Neck supple; no JVD; no LAD CVS: RRR, S1 and S2 CHEST: Coarse rhonchi R>L ABD: Soft, NT, + BS EXT: No c/c/e Results/Medications Result Diagram: 12/23/16 1030 12/23/16 0430 Results 24 hrs Laboratory Tests Test 12/22/16 12:47 12/22/16 14:30 12/22/16 17:36 12/22/16 23:02 Bedside Glucose 221 H 185 187 Blood Gas Specimen Source Blood arterial Arterial Blood Date Drawn 12/22/2016 2:32:06 PM Arterial Blood pH (Temp corrected) 7.407 Arterial Blood pCO2 (Temp correct) 31.6 L Arterial Blood pO2 (Temp corrected) 167.7 H Arterial Blood HCO3 19.4 L Arterial Blood Base Excess -4.6 L Arterial Blood Oxygen Saturation 98.5 Oniel Test ACCEPTAB Arterial Blood Gas Puncture Site Right Radial Arterial Blood Carboxyhemoglobin 0.3 Arterial Blood Methemoglobin 0.6 Blood Gas A-a O2 Differential 81.2 H Oxyhemoglobin Percent 97.6 Total Hemoglobin 8.8 L Blood Gas Temperature 37.0 Blood Gas Actual Respiration Rate 25 Blood Gas Modality VENT - CPAP FiO2 40.0 Blood Gas Low PEEP Setting 5.0 Blood Gas Pressure Support 8 Blood Gas Notified Whom FLORES DELCID Blood Gas Notified Time 12/22/2016 2:41:05 PM Test 12/23/16 04:30 12/23/16 05:00 12/23/16 05:39 12/23/16 10:30 White Blood Count 6.5 Red Blood Count 2.67 L Hemoglobin 7.6 L 7.8 L Hematocrit 25.0 L 24.8 L Mean Corpuscular Volume 93.6 Mean Corpuscular Hemoglobin 28.5 L Mean Corpuscular Hemoglobin Concent 30.4 L Red Cell Distribution Width 18.7 H Platelet Count 120 L Mean Platelet Volume 13.7 H Neutrophils % 74.8 Lymphocytes % 7.4 L Monocytes % 11.5 H Eosinophils % 1.4 Basophils % 0.2 Nucleated Red Blood Cells % 1.4 H Neutrophils # 4.8 Lymphocytes # 0.5 L Monocytes # 0.7 Eosinophils # 0.1 Basophils # 0.0 Nucleated Red Blood Cells # 0.1 H Sodium Level 140 Potassium Level 3.9 Chloride Level 116 H Carbon Dioxide Level 19 L Anion Gap 9 Blood Urea Nitrogen 62 H Creatinine 4.33 H Glucose Level 152 Lactic Acid Level 0.6 Calcium Level 7.5 L Phosphorus Level 3.4 Magnesium Level 2.6 H Blood Gas Specimen Source Blood arterial Arterial Blood Date Drawn 12/23/2016 4:44:29 AM Arterial Blood pH (Temp corrected) 7.370 Arterial Blood pCO2 (Temp correct) 29.4 L Arterial Blood pO2 (Temp corrected) 72.7 L Arterial Blood HCO3 16.6 L Arterial Blood Base Excess -7.7 L Arterial Blood Oxygen Saturation 93.8 L Oniel Test ACCEPTAB Arterial Blood Gas Puncture Site Right Radial Arterial Blood Carboxyhemoglobin 0.4 Arterial Blood Methemoglobin 0.6 Blood Gas A-a O2 Differential 128.3 H Oxyhemoglobin Percent 92.9 L Total Hemoglobin 9.2 L Blood Gas Temperature 37.0 Blood Gas Modality NASAL CANNULA FiO2 33.0 Blood Gas Notified Whom LW Blood Gas Notified Time 12/23/2016 4:55:03 AM Bedside Glucose 175 Medications Current Medications Ondansetron HCl (Zofran Inj) 4 mg Q6H PRN IV NAUSEA AND/OR VOMITING; Start at 16:00 Bisacodyl (Dulcolax Supp) 10 mg DAILY PRN [place] CONSTIPATION; Start 12/16/16 at 16 :00 Heparin Sodium (Porcine) (Heparin (5000 Units/0.5 ml)) 5,000 unit Q12 SC Last administered on 12/23/16 08:30; Admin Dose 5,000 UNIT; Start 12/16/16 at 21:00 Miscellaneous Information 1 ea NOTE XX ; Start 12/16/16 at 18:00 Glucose (Glutose) 15 gm Q15M PRN PO DECREASED GLUCOSE; Start 12/16/16 at 18:00 Glucose (Glutose) 22.5 gm Q15M PRN PO DECREASED GLUCOSE; Start 12/16/16 at 18: 00 Dextrose (D50w Syringe) 25 ml Q15M PRN IV DECREASED GLUCOSE; Start 12/16/16 at 18:00 Dextrose (D50w Syringe) 50 ml Q15M PRN IV DECREASED GLUCOSE; Start 12/16/16 at 18:00 Glucagon (Glucagen) 1 mg Q15M PRN IM DECREASED GLUCOSE; Start 12/16/16 at 18:00 Glucose (Glutose) 15 gm Q15M PRN BUCCAL DECREASED GLUCOSE; Start 12/16/16 at 18 :00 Insulin Aspart (Novolog Insulin Pen) (Adult SC Insulin - Moder... Q6 SC Last administered on 12/23/16 05:40; Admin Dose 2 UNIT; Start 12/17/16 at 00:00 Epoetin Magdiel (Epogen (Non Esrd/Non Oncology)) 10,000 units MoWeFr@17 SC Last administered on 12/21/16 18:14; Admin Dose 10,000 UNITS; Start 12/17/16 at 17: 00 Pantoprazole (Protonix Iv) 40 mg BID@06,18 IV Last administered on 12/23/16 05: 37; Admin Dose 40 MG; Start 12/17/16 at 18:00 Hydralazine HCl (Apresoline) 10 mg Q6 IV Last administered on 12/20/16 06:17; Admin Dose 10 MG; Start 12/17/16 at 13:30 Morphine Sulfate (morphine) 1 mg Q4H PRN IV PAIN LEVEL 1-5; Start 12/20/16 at 11:30 Nitroglycerin 1 tab 1 tab Q5M PRN SL ANGINA Last administered on 12/21/16 01: 06; Admin Dose 1 TAB; Start 12/21/16 at 00:30 Dopamine HCl/ Dextrose 250 ml @ 5.738 mls/ hr TITRATE IV Last administered on 12/21/16 08:44; Admin Dose 5.738 MLS/HR; Start 12/21/16 at 08:30 Dexmedetomidine HCl/Sodium Chloride (Precedex/NS) 50 ml @ 3.82 mls/hr TITRATE IV Last administered on 12/22/16 12:54; Admin Dose 7.65 MLS/HR; Start 12/21/16 at 08:30 Clopidogrel Bisulfate (plaVIX) 75 mg DAILY PO Last administered on 12/23/16 08: 29; Admin Dose 75 MG; Start 12/22/16 at 09:00 Al Hydrox/Mg Hydrox/Simethicone (Mag-Al Plus) 30 ml Q4H PRN PO GASTROINTESTINAL UPSET; Start 12/21/16 at 12:00 Ondansetron HCl (Zofran Inj) 4 mg Q4H PRN IV NAUSEA AND/OR VOMITING; Start at 12:00 Levothyroxine Sodium (Synthroid Iv) 25 mcg DAILY@06 IV Last administered on 12/23 05:37; Admin Dose 25 MCG; Start 12/22/16 at 10:00 Amiodarone HCl (Cordarone) 200 mg BID NGT Last administered on 12/23/16 08:29; Admin Dose 200 MG; Start 12/22/16 at 12:30 Magnesium Oxide 400 mg 400 mg DAILY NGT Last administered on 12/23/16 08:29; Admin Dose 400 MG; Start 12/22/16 at 12:30 Piperacillin Sod/ Tazobactam Sod 50 ml @ 100 mls/hr Q8 IVPB Last administered on 12/23/16 05:37; Admin Dose 100 MLS/HR; Start 12/22/16 at 14:00 Norepinephrine/ Dextrose (Levophed/D5W) 500 ml @ 1.87 mls/hr TITRATE IV ; Start 12/22/16 at 17:00 Zolpidem Tartrate (Ambien) 5 mg HS PRN PO INSOMNIA Last administered on 22:54; Admin Dose 5 MG; Start 12/22/16 at 22:00 Atorvastatin Calcium 40 mg 40 mg HS PO ; Start 12/23/16 at 21:00 Sodium Bicarbonate/ Sodium Chloride (Na Bicarb/1/2 NS) 1,050 ml @ 75 mls/hr Q14H IV ; Start 12/23/16 at 12:00 Metoprolol Succinate (Toprol Xl) 25 mg BID PO ; Start 12/23/16 at 21:00 Assessment/Plan Additional Assessment/Plan IMP: 1. Respiratory Failure/Vent--etiology of his initial cardiopulmonary arrest unclear, however, concerning for an aspiration event leading to a NSTEMI. Extubated 2. s/p NSTEMI 3. CKD 4. RLL infiltrate--? etiology aspiration 5. Anemia 6. SBO RECS: 1. Continue Abx 2. CPT/suctioning/BD's 3. Mobilize OOB 4. PT/OT referral 5. Speech referral ALONDRA LIN MD Dec 23, 2016 12:00
--- NOTE | 2016-12-23 12:28 | RADRPT ---
PROCEDURE: XR Chest AP portable CLINICAL INDICATION: Respiratory failure TECHNIQUE: An AP portable radiograph of the chest was submitted. COMPARISON: 12/22/2016 FINDINGS: Support Hardware: The patient has been extubated and the NG tube has been removed. Cardiovascular: There is again evidence of a previous midline sternotomy and mediastinal surgery. T he heart remains mildly enlarged, the aorta appears atherosclerotic although pulmonary vasculature i s upper normal. Lung Cheung: The patient is again taken a poor inspiratory effort compressing lung parenchyma but in filtrate is seen at the lung bases slightly worsened since the previous. Pleural Spaces: No pneumothorax or pleural effusion is identified. Osseous Structures: There is a moderate dextroscoliotic curve to the thoracic spine. Soft Tissues: Residual contrast is again seen in bowel. IMPRESSION: 1. Previous midline sternotomy. 2. Mild cardiomegaly with atherosclerotic changes to the aorta without CHF. 3. Worsening infiltrate seen at the lung bases. 4. Interval extubation and removal of NG tube. Physician Toni Date Time Electronically viewed and signed by Physician Toni on 12/23/2016 12:28 /
--- NOTE | 2016-12-23 13:07 | CONS ---
Date/Time of Note Date/Time of Note DATE: 12/23/16 TIME: 13:03 Consult Date/Type/Reason Admit Date/Time Dec 16, 2016 at 17:40 Type of Consultation: GI Ordering Provider: JULIANNE ESTRELLA MD Subjective Tolerating diet Passing bm without gross blood Objective Vital Signs Date Time Temp Pulse Resp B/P Pulse Ox O2 Delivery O2 Flow Rate FiO2 12/23/16 12:00 77 12/23/16 10:00 31 121/65 95 Nasal Cannula 2.0 12/23/16 08:00 98.1 12/22/16 14:35 40 Abdoemn: soft, non tender, +BS Intake and Output 12/22/16 12/22/16 12/23/16 15:00 23:00 07:00 Intake Total 1099.10 ml 1220 ml 800 ml Output Total 420 ml 220 ml 150 ml Balance 679.10 ml 1000 ml 650 ml Results/Medications Result Diagram: 12/23/16 1030 12/23/16 0430 Results 24 hrs Laboratory Tests Test 12/22/16 14:30 12/22/16 17:36 12/22/16 23:02 12/23/16 04:30 Blood Gas Specimen Source Blood arterial Arterial Blood Date Drawn 12/22/2016 2:32:06 PM Arterial Blood pH (Temp corrected) 7.407 Arterial Blood pCO2 (Temp correct) 31.6 L Arterial Blood pO2 (Temp corrected) 167.7 H Arterial Blood HCO3 19.4 L Arterial Blood Base Excess -4.6 L Arterial Blood Oxygen Saturation 98.5 Oniel Test ACCEPTAB Arterial Blood Gas Puncture Site Right Radial Arterial Blood Carboxyhemoglobin 0.3 Arterial Blood Methemoglobin 0.6 Blood Gas A-a O2 Differential 81.2 H Oxyhemoglobin Percent 97.6 Total Hemoglobin 8.8 L Blood Gas Temperature 37.0 Blood Gas Actual Respiration Rate 25 Blood Gas Modality VENT - CPAP FiO2 40.0 Blood Gas Low PEEP Setting 5.0 Blood Gas Pressure Support 8 Blood Gas Notified Whom FLORES DELCID Blood Gas Notified Time 12/22/2016 2:41:05 PM Bedside Glucose 185 187 White Blood Count 6.5 Red Blood Count 2.67 L Hemoglobin 7.6 L Hematocrit 25.0 L Mean Corpuscular Volume 93.6 Mean Corpuscular Hemoglobin 28.5 L Mean Corpuscular Hemoglobin Concent 30.4 L Red Cell Distribution Width 18.7 H Platelet Count 120 L Mean Platelet Volume 13.7 H Neutrophils % 74.8 Lymphocytes % 7.4 L Monocytes % 11.5 H Eosinophils % 1.4 Basophils % 0.2 Nucleated Red Blood Cells % 1.4 H Neutrophils # 4.8 Lymphocytes # 0.5 L Monocytes # 0.7 Eosinophils # 0.1 Basophils # 0.0 Nucleated Red Blood Cells # 0.1 H Sodium Level 140 Potassium Level 3.9 Chloride Level 116 H Carbon Dioxide Level 19 L Anion Gap 9 Blood Urea Nitrogen 62 H Creatinine 4.33 H Glucose Level 152 Lactic Acid Level 0.6 Calcium Level 7.5 L Phosphorus Level 3.4 Magnesium Level 2.6 H Test 12/23/16 05:00 12/23/16 05:39 12/23/16 10:30 12/23/16 12:20 Blood Gas Specimen Source Blood arterial Arterial Blood Date Drawn 12/23/2016 4:44:29 AM Arterial Blood pH (Temp corrected) 7.370 Arterial Blood pCO2 (Temp correct) 29.4 L Arterial Blood pO2 (Temp corrected) 72.7 L Arterial Blood HCO3 16.6 L Arterial Blood Base Excess -7.7 L Arterial Blood Oxygen Saturation 93.8 L Oniel Test ACCEPTAB Arterial Blood Gas Puncture Site Right Radial Arterial Blood Carboxyhemoglobin 0.4 Arterial Blood Methemoglobin 0.6 Blood Gas A-a O2 Differential 128.3 H Oxyhemoglobin Percent 92.9 L Total Hemoglobin 9.2 L Blood Gas Temperature 37.0 Blood Gas Modality NASAL CANNULA FiO2 33.0 Blood Gas Notified Whom LW Blood Gas Notified Time 12/23/2016 4:55:03 AM Bedside Glucose 175 225 H Hemoglobin 7.8 L Hematocrit 24.8 L Medications Current Medications Ondansetron HCl (Zofran Inj) 4 mg Q6H PRN IV NAUSEA AND/OR VOMITING; Start at 16:00 Bisacodyl (Dulcolax Supp) 10 mg DAILY PRN [place] CONSTIPATION; Start 12/16/16 at 16 :00 Heparin Sodium (Porcine) (Heparin (5000 Units/0.5 ml)) 5,000 unit Q12 SC Last administered on 12/23/16t 08:30; Admin Dose 5,000 UNIT; Start 12/16/16 at 21:00 Miscellaneous Information 1 ea NOTE XX ; Start 12/16/16 at 18:00 Glucose (Glutose) 15 gm Q15M PRN PO DECREASED GLUCOSE; Start 12/16/16 at 18:00 Glucose (Glutose) 22.5 gm Q15M PRN PO DECREASED GLUCOSE; Start 12/16/16 at 18: 00 Dextrose (D50w Syringe) 25 ml Q15M PRN IV DECREASED GLUCOSE; Start 12/16/16 at 18:00 Dextrose (D50w Syringe) 50 ml Q15M PRN IV DECREASED GLUCOSE; Start 12/16/16 at 18:00 Glucagon (Glucagen) 1 mg Q15M PRN IM DECREASED GLUCOSE; Start 12/16/16 at 18:00 Glucose (Glutose) 15 gm Q15M PRN BUCCAL DECREASED GLUCOSE; Start 12/16/16 at 18 :00 Insulin Aspart (Novolog Insulin Pen) (Adult SC Insulin - Moder... Q6 SC Last administered on 12/23/16 12:23; Admin Dose 6 UNIT; Start 12/17/16 at 00:00 Epoetin Magdiel (Epogen (Non Esrd/Non Oncology)) 10,000 units MoWeFr@17 SC Last administered on 12/21/16 18:14; Admin Dose 10,000 UNITS; Start 12/17/16 at 17: 00 Pantoprazole (Protonix Iv) 40 mg BID@06,18 IV Last administered on 12/23/16 05: 37; Admin Dose 40 MG; Start 12/17/16 at 18:00 Hydralazine HCl (Apresoline) 10 mg Q6 IV Last administered on 12/23/16 12:21; Admin Dose 10 MG; Start 12/17/16 at 13:30 Morphine Sulfate (morphine) 1 mg Q4H PRN IV PAIN LEVEL 1-5; Start 12/20/16 at 11:30 Nitroglycerin 1 tab 1 tab Q5M PRN SL ANGINA Last administered on 12/21/16 01: 06; Admin Dose 1 TAB; Start 12/21/16 at 00:30 Dopamine HCl/ Dextrose 250 ml @ 5.738 mls/ hr TITRATE IV Last administered on 12/21/16 08:44; Admin Dose 5.738 MLS/HR; Start 12/21/16 at 08:30 Dexmedetomidine HCl/Sodium Chloride (Precedex/NS) 50 ml @ 3.82 mls/hr TITRATE IV Last administered on 12/22/16 12:54; Admin Dose 7.65 MLS/HR; Start 12/21/16 at 08:30 Clopidogrel Bisulfate (plaVIX) 75 mg DAILY PO Last administered on 12/23/16 08: 29; Admin Dose 75 MG; Start 12/22/16 at 09:00 Al Hydrox/Mg Hydrox/Simethicone (Mag-Al Plus) 30 ml Q4H PRN PO GASTROINTESTINAL UPSET; Start 12/21/16 at 12:00 Ondansetron HCl (Zofran Inj) 4 mg Q4H PRN IV NAUSEA AND/OR VOMITING; Start at 12:00 Levothyroxine Sodium (Synthroid Iv) 25 mcg DAILY@06 IV Last administered on 12/23 05:37; Admin Dose 25 MCG; Start 12/22/16 at 10:00 Amiodarone HCl (Cordarone) 200 mg BID NGT Last administered on 12/23/16 08:29; Admin Dose 200 MG; Start 12/22/16 at 12:30 Magnesium Oxide 400 mg 400 mg DAILY NGT Last administered on 12/23/16 08:29; Admin Dose 400 MG; Start 12/22/16 at 12:30 Piperacillin Sod/ Tazobactam Sod 50 ml @ 100 mls/hr Q8 IVPB Last administered on 12/23/16 05:37; Admin Dose 100 MLS/HR; Start 12/22/16 at 14:00 Norepinephrine/ Dextrose (Levophed/D5W) 500 ml @ 1.87 mls/hr TITRATE IV ; Start 12/22/16 at 17:00 Zolpidem Tartrate (Ambien) 5 mg HS PRN PO INSOMNIA Last administered on 22:54; Admin Dose 5 MG; Start 12/22/16 at 22:00 Atorvastatin Calcium 40 mg 40 mg HS PO ; Start 12/23/16 at 21:00 Sodium Bicarbonate/ Sodium Chloride (Na Bicarb/1/2 NS) 1,050 ml @ 75 mls/hr Q14H IV Last administered on 12/23/16 12:27; Admin Dose 75 MLS/HR; Start at 12:00 Metoprolol Succinate (Toprol Xl) 25 mg BID PO ; Start 12/23/16 at 21:00 Assessment/Plan Chief Complaint/Hosp Course Impression: 1. Partial SBO related to prior abdominal surgery - tolerating po and passing bm , KUB back to normal 2. Cardiac Issues - now take priority over GI issues 3. Fall in Hct - no obvious GI blood loss Plan: 1. Discussed with nursing 2. Check stool OB 3. Management of cardiac issues per Dr. Estrella and cardiology 4. I will sign off for now. Will be happy to see again at your request Problems: COLEEN FERRARA MD Dec 23, 2016 13:07
--- NOTE | 2016-12-23 14:04 | RADRPT ---
PROCEDURE: US DVT. CLINICAL INDICATION: Right upper extremity swelling and pain. TECHNIQUE: Multiple longitudinal and transverse images of the right upper extremity veins were obt ained with lyons scale and color Doppler imaging. 2D grayscale measurements with compression, color Doppler flow, and augmentation was performed. COMPARISON: No prior studies are available for comparison. FINDINGS: The right jugular vein, subclavian vein, axillary vein, and brachial veins are normally compressible throughout. Color flow demonstrates normal filling of the vessel. Normal waveforms are visualized and there is normal response to augmentation. There is a thrombus within the right cephalic vein from the upper arm to the forearm. IMPRESSION: 1. Thrombus within the right cephalic vein from the upper arm to the forearm. 2. Otherwise normal ultrasound of the right upper extremity. Findings discussed with Tristen Cooper at 12/23/2016 2:04:03 PM RPTAT: UU .Rell García MD, MD Date Time Electronically viewed and signed by .Rell García MD, MD on 12/23/2016 14:04 .K/
--- NOTE | 2016-12-23 19:17 | OPR ---
DATE OF OPERATION: 12/21/2016 PROCEDURE PERFORMED: 1. Left Heart Catheterization 2. Right Heart Catheterization. 3. Central Venous Line Placement. 4. PTCA of SVG graft to OM branch. PREOPERATIVE DIAGNOSES: 1. Non-ST elevation myocardial infarction. 2. Cardiac arrest. 3. History of multivessel coronary artery disease, status post previous coronary artery bypass, percutaneous coronary intervention. 4. Chronic kidney disease. 5. Hypotension/shock. POSTOPERATIVE DIAGNOSES: 1. Non-ST elevation myocardial infarction. 2. Cardiac arrest. 3. History of multivessel coronary artery disease, status post previous coronary artery bypass, percutaneous coronary intervention. 4. Chronic kidney disease. 5. Hypovolemic shock REFERRING PHYSICIAN: Tristen Cooper MD TELLERS SUPERVISOR: Fab Daigle MD HISTORY: Mr. Anurag Watson is an 81-year-old man with history of coronary artery disease, status post CABG in 1994, as well as PCI to the right coronary artery x2. The patient was admitted with a small-bowel obstruction to [facility] on 12/16/2016. Please see consult note for full details. In brief, the patient had a non-ST elevation myocardial infarction last night as well as chest pain, developed AFib and then had cardiac arrest with ventricular tachycardia and fibrillation rhythm. The patient was resuscitated and now hypotensive. Given acute myocardial infarction and hypotension, the patient was brought to cardiac catheterization lab emergently. Family and primary physician were notified of the patient's condition and are in agreement with treatment plan. They are aware of all risks and benefits of procedure including kidney injury, heart attack, stroke and and are in agreement to proceed with catheterization. PROCEDURE DESCRIPTION: The patient was brought to the catheterization lab on vasopressor support. Right and left groins were prepped and draped in usual sterile fashion and anesthetized with 1% lidocaine solution. A 7-Somali sheath was placed in the left femoral vein using modified Seldinger technique to provide additional IV access as well as for right heart catheterization. A 6- Somali sheath was placed in the right common femoral artery using modified Seldinger technique. Right femoral angiogram was obtained showing correct sheath placement above the bifurcation. Left heart catheterization was then performed. The patient was given 2000 units of IV heparin. A JR4, 6-Somali diagnostic catheter was advanced to the ascending aorta and used to engage the right coronary artery. Cineangiograms were obtained. The JR catheter was advanced to the left ventricle over a guidewire. Pressures were obtained. The catheter was withdrawn and used to engage the SVG graft to the diagonal vessel. The catheter was then withdrawn to the transverse aorta and used to engage the left subclavian artery. A 260 cm guidewire was then advanced to the left subclavian artery and the 6-Somali JR catheter was exchanged for a 6-Somali IM diagnostic catheter and cineangiograms were obtained. The IM catheter was then withdrawn. A 6-Somali Left Bypass Backup diagnostic catheter was then advanced through the arterial sheath to the ascending aorta to engage the SVG graft to OM branch, which was previously not engaged. Cineangiograms were obtained showing stenosis in the mid graft with JENNIFER 3 flow. It was noted that this stenosis was between 2 surgical clips that were placed when preparing the graft during the original surgery. Given the possibility this was causing the ischemic event , decision was made to proceed with PCI. Prior to PCI, a right heart cath was performed to assess fluid status/pressures given hypotension. A 7-Somali [place]-Lucretia catheter was advanced through the left femoral venous sheath to the right heart including the right atrium, right ventricle, pulmonary artery and pulmonary capillary wedge pressure was also obtained. PA sample was obtained as well as a right femoral artery pressure for Nicola cardiac output. The [place] catheter was then withdrawn. A 7-Somali triple-lumen central venous line was placed through the left 7-Somali suite sheath over a guidewire to provide additional access. PCI DESCRIPTION: The patient was loaded with IV Kangreal and IV heparin. ACT was checked and confirmed to be in therapeutic range.The left coronary backup diagnostic catheter was exchanged for a 6-Somali left coronary backup guiding catheter. This was used to engage the SVG graft to the OM branch. A 180 cm 0.014 inch Runthrough wire was then advanced to the distal OM branch. Intra-arterial nicardipine was then given through the SVG graft, given inability to place filter distal to tight lesion. An Emerge 2.0 x 12 mm compliant balloon was then advanced to the lesion and inflated to high pressures. However, balloon failed to fully expand in the stenotic area. The balloon was then exchanged for a 2.5 x 12 mm Euphora noncompliant balloon which was advanced to the mid graft lesion and intra-arterial nicardipine was given prior to inflation. This balloon was inflated to very high pressures. However, again, we were unable to fully expand balloon. At this point, repeat angiograms were obtained showing improved flow; however, there was still significant stenosis of 80%. Decision was made to not place a stent due risk of inability to fully expand stent. The procedure was concluded. There was JENNIFER 3 flow to the SVG Graft/OM vessel. The patient was relatively stable with improved blood pressure after IV hydration. All catheters and wires were removed. There was no complication. Estimated blood loss was 50 mL. No specimens were obtained. Hemostasis was then obtained of the right femoral artery using Angio-Seal device. 7Fr venous sheath and central line were secured in place. FINDINGS: HEMODYNAMICS: Left ventricular end-diastolic pressures is 5 mmHg. No significant gradient LV to AO pullback. RIGHT HEART CATHETERIZATION PRESSURES: 1. Right atrium 70 mmHg. 2. Right ventricle 43/2/9 mmHg. 3. Pulmonary artery: 40 /17 (27) mmHg. 4. Pulmonary capillary wedge pressure: 18 mmHg. 5. Cardiac output by Nicola is 3.73 L/min, Cardiac index of 1.96 L/min/m2 6. Pulmonary vascular resistance: 2.84 Wood units. CORONARY ANATOMY: 1. Left main: Not engaged given known to be totally occluded in the mid segment. 2. Left circumflex artery is ostially occluded, was not engaged. 3. LAD also ostially occluded, not engaged. 4. Right coronary artery: Is a large dominant artery. There are patent stents noted in the proximal and mid segment of the artery. There is no significant in-stent restenosis. There is JENNIFER 3 flow throughout the vessel. There is mild diffuse disease throughout the vessel, 10 to 20%. Distally it bifurcates into a large right posterolateral system which has mild diffuse disease, 10%. There is also right PDA which has mild 10% to 20% disease. It gives rise to [id number] collaterals filling the proximal LAD as well as the OM branch. 5. SVG graft to small diagonal branch is patent. It is a small graft without significant disease. 6. VALLE to LAD is a tortuous graft without significant disease. It touches down in the mid LAD and fills the mid to distal LAD which has mild diffuse disease. There is also a small diagonal 2 which is without significant disease. There is collateral filling to a diagonal 1 vessel which is with mild diffuse disease. 7. SVG graft to OM branch is a large ectatic vessel. There is JENNIFER 3 flow and 95% stenosis in the mid graft. This is between 2 previously placed valve clips during surgery. There is also collateral filling of a left posterolateral branch which appears to be well collateralized. Moderate Sedation: PTCA DESCRIPTION: 1. SVG graft to OM. Prestenosis 95%, poststenosis 80%. JENNIFER 3 flow pre, JENNIFER 3 flow post, status post PTCA alone with 2.5 x 12 mm noncompliant balloon. SUMMARY: 1. Hypovolemic shock. 2. Low left ventricular and right ventricular filling pressures. 3. Multivessel coronary artery disease with patient grafts. 4. Unsuccessful percutaneous transluminal coronary angioplasty of mid saphenous vein graft to obtuse marginal graft lesion due to likely extrinsic compression from surgical clips. RECOMMENDATIONS: 1. Continue aspirin 81 mg p.o. daily. 2. Continue Plavix 75 mg p.o. daily if tolerating. 3. Continue statin. 4. Hold off on beta tushar, MITCHELL inhibitor given hypotension. Continue fluid resuscitation and weaning off vasopressors. 5. Consideration for further intervention of mid SVG graft or ischemic evaluation pending recovery from acute myocardial infarction, cardiac arrest. 6. The patient with likely large amount of non-revascularizeable myocardium. May consider AICD placement after recovery is made for secondary prevention Dictated By: FAB OLMSTEAD/ROSANGELA Conf#: [id number] DID#: [id number] MTDD
[2016-12-23] MEDS: ATORVASTATIN 40 MG TAB PO SCH (20:07)
[2016-12-23] MEDS: METOPROLOL (XL) 25 MG TAB PO SCH (20:07)
[2016-12-23] MEDS: ZOLPIDEM 5 MG TAB PO PRN (20:32)
[2016-12-23] MEDS ORDERED: FUROSEMIDE 40 MG INJ IV ONE (21:30)
[2016-12-23 21:33] LABS: AADO2 Arterial 606.6 mmHg (7.0-24.0); Allen Test ACCEPTAB; Arterial COHb 0.3 % (0.0-3.0); Arterial Fraction of Oxyhgb 88.9 % (93.0-99.0); Arterial HCO3 17.7 mmol/L (22.0-26.0); Arterial MetHb 0.3 % (0.0-1.5); Arterial Total Hemglobin 12.5 g/dl (12.0-18.0); MODE MASK - NRB
[2016-12-23 23:08] LABS: AADO2 Arterial 600.2 mmHg (7.0-24.0); Allen Test ACCEPTAB; Arterial COHb 0.3 % (0.0-3.0); Arterial Fraction of Oxyhgb 93.6 % (93.0-99.0); Arterial HCO3 16.1 mmol/L (22.0-26.0); Arterial MetHb 0.3 % (0.0-1.5); Arterial Total Hemglobin 11.9 g/dl (12.0-18.0); MODE HFNC
[2016-12-23] MEDS ORDERED: SODIUM BICARBONATE (IV ADD) 100 MEQ in DEXTROSE 5%-0.45% NACL 1,000 ML IV SCH ×2 (23:30→23:45)
[2016-12-24] VITALS (33 sets, daily range): BP systolic 110–162; BP diastolic 58–101; PULSE 75–97; RESP 25–39
[2016-12-24] MEDS: Insulin NOVOLOG SS MODERATE Algorithm(NPO/TPN/ENTERAL FEEDS) SC SCH ×5 (00:48→23:32)
[2016-12-24 04:45] LABS: ADD SCAN DIFF NO
[2016-12-24 04:47] LABS: ABNORMAL IP MESSAGE 1; BASOPHILS % 0.3 % (0.0-2.0); EOSINOPHILS # 0.1 10^3/ul (0.0-0.5); EOSINOPHILS % 0.7 % (0.0-7.0); HEMATOCRIT 33.2 % (42.0-52.0); HEMOGLOBIN 10.2 g/dl (14.0-18.0); LYMPHOCYTES # 0.5 10^3/ul (0.8-2.9); LYMPHOCYTES % 4.6 % (15.0-51.0); MEAN CORPUSCULAR HEMOGLOBIN 28.2 pg (29.0-33.0); MEAN CORPUSCULAR HGB CONC 30.7 g/dl (32.0-37.0); MEAN CORPUSCULAR VOLUME 91.7 fl (82.0-101.0); MEAN PLATELET VOLUME 12.1 fl (7.4-10.4); MONOCYTE # 1.1 10^3/ul (0.3-0.9); MONOCYTES % 9.7 % (0.0-11.0); NEUTROPHIL # 8.4 10^3/ul (1.6-7.5); NEUTROPHILS % 76.2 % (39.0-77.0); NUCLEATED RED BLOOD CELLS # 0.1 10^3/ul (0.0-0.0); NUCLEATED RED BLOOD CELLS% 1.3 /100WBC (0.0-0.0); PLATELET COUNT 118 10^3/UL (140-415); RED BLOOD COUNT 3.62 10^6/ul (4.70-6.10); RED CELL DISTRIBUTION WIDTH 18.5 % (11.5-14.5)
[2016-12-24 05:12] LABS: POTASSIUM 4.1 mmol/L (3.5-5.1)
[2016-12-24 05:14] LABS: BILIRUBIN,INDIRECT 0.4 mg/dl (0-1.1); BILIRUBIN,TOTAL 0.4 mg/dl (0.2-1.3); CREATININE 4.85 mg/dl (0.61-1.24)
[2016-12-24 05:15] LABS: ALBUMIN/GLOBULIN RATIO 1.15; CALCIUM 7.2 mg/dl (8.4-10.2); TOTAL PROTEIN 5.6 g/dl (6.1-8.1)
[2016-12-24 05:17] LABS: MAGNESIUM 2.5 mg/dl (1.7-2.5); PHOSPHORUS 4.7 mg/dl (2.5-4.9)
[2016-12-24] MEDS: hydrALAzine 20 MG INJ IV SCH ×2 (05:53)
[2016-12-24] MEDS: PANTOPRAZOLE 40 MG INJ IV SCH (05:55)
[2016-12-24] MEDS: LEVOTHYROXINE 100 MCG VIAL IV SCH (05:58)
[2016-12-24] MEDS: PIPER-TAZO 2.25 GM (PMX) 50 ML IVPB SCH ×3 (06:01→21:17)
[2016-12-24] MEDS ORDERED: hydrALAzine 20 MG INJ IV PRN (08:00)
--- NOTE | 2016-12-24 08:13 | PN ---
Date/Time of Note Date/Time of Note DATE: 12/24/16 TIME: 08:09 Assessment/Plan VTE Prophylaxis VTE Prophylaxis Intervention: other Lines/Catheters IV Catheter Type (from Nrs): Saline Lock Urinary Cath still in place: No Assessment/Plan Assessment/Plan 1. S/P TN with now CHF. 2. Anemia resolved with transfusion of 2 units packed cell, having received a total of 4 units 3. Known CKD with now ARF sec to low BP (cardiac arrest) and dye (ht cath) 4. Metabolic acidosis 5. ? Pneumonia, cont abx per Pulmonary. 6. SBO resolved. 7. Gout quiescent 8. Swelling right upper extrem>venous study->superficial vasc to comment. 9. Given the above will need HD val. Subjective 24 Hr Interval Summary Respiratory: shortness of breath (has inc during the night and this am) Cardiovascular: No chest pain Gastrointestinal: no complaints Genitourinary: no complaints Musculoskeletal: back pain Neurologic: No confusion Exam/Review of Systems Vital Signs Vitals Vital Signs Date Time Temp Pulse Resp B/P Pulse Ox O2 Delivery O2 Flow Rate FiO2 12/24/16 07:00 86 34 143/75 96 High Flow 12/24/16 04:51 80 12/24/16 04:00 98.6 12/23/16 21:00 10.0 Intake and Output 12/23/16 12/23/16 12/24/16 15:00 23:00 07:00 Intake Total 1008 ml 1520 ml 465 ml Output Total 250 ml 235 ml 435 ml Balance 758 ml 1285 ml 30 ml Exam Neck: jvd (is present) Respiratory: diminished breath sounds (with rales bilat) Cardiovascular: regular rate and rhythm (with gallop) Gastrointestinal: soft Extremities: No edema (trace pedal but no sacral edema) Results Result Diagram: 12/24/16 0430 12/24/16 0430 Results 24 hrs Laboratory Tests Test 12/23/16 10:30 12/23/16 12:20 12/23/16 14:00 12/23/16 17:48 Hemoglobin 7.8 L Hematocrit 24.8 L Bedside Glucose 225 H 199 Stool Occult Blood NEGATIVE Test 12/23/16 21:12 12/23/16 22:56 12/24/16 00:46 12/24/16 04:30 Blood Gas Specimen Source Blood arterial Blood arterial Arterial Blood Date Drawn 12/23/2016 9:22:23 PM 12/23/2016 11:00:08 PM Arterial Blood pH (Temp corrected) 7.251 *L 7.268 *L Arterial Blood pCO2 (Temp correct) 41.1 36.0 Arterial Blood pO2 (Temp corrected) 65.3 L 76.8 L Arterial Blood HCO3 17.7 L 16.1 L Arterial Blood Base Excess -9.0 L -10.0 L Arterial Blood Oxygen Saturation 89.4 L 94.2 L Oniel Test ACCEPTAB ACCEPTAB Arterial Blood Gas Puncture Site Right Radial Right Radial Arterial Blood Carboxyhemoglobin 0.3 0.3 Arterial Blood Methemoglobin 0.3 0.3 Blood Gas A-a O2 Differential 606.6 H 600.2 H Oxyhemoglobin Percent 88.9 L 93.6 Total Hemoglobin 12.5 11.9 L Blood Gas Temperature 37.0 37.0 Blood Gas Actual Respiration Rate 33 31 Blood Gas Modality MASK - NRB HFNC FiO2 100.0 100.0 Blood Gas Critical Value Read Back Carina BAUGH R.N., A. R.N. Blood Gas Notified Whom FAHEEM MAYEN RCP Blood Gas Notified Time 12/23/2016 9:33:34 PM 12/23/2016 11:07:55 PM Bedside Glucose 198 White Blood Count 11.0 #H Red Blood Count 3.62 #L Hemoglobin 10.2 #L Hematocrit 33.2 #L Mean Corpuscular Volume 91.7 Mean Corpuscular Hemoglobin 28.2 L Mean Corpuscular Hemoglobin Concent 30.7 L Red Cell Distribution Width 18.5 H Platelet Count 118 L Mean Platelet Volume 12.1 H Neutrophils % 76.2 Lymphocytes % 4.6 L Monocytes % 9.7 Eosinophils % 0.7 Basophils % 0.3 Nucleated Red Blood Cells % 1.3 H Neutrophils # 8.4 H Lymphocytes # 0.5 L Monocytes # 1.1 H Eosinophils # 0.1 Basophils # 0.0 Nucleated Red Blood Cells # 0.1 H Sodium Level 144 Potassium Level 4.1 Chloride Level 112 H Carbon Dioxide Level 18 L Anion Gap 18 #H Blood Urea Nitrogen 69 H Creatinine 4.85 H Glucose Level 200 Calcium Level 7.2 L Phosphorus Level 4.7 Magnesium Level 2.5 Total Bilirubin 0.4 Direct Bilirubin 0.00 Indirect Bilirubin 0.4 Aspartate Amino Transf (AST/SGOT) 91 H Alanine Aminotransferase (ALT/SGPT) 117 H Alkaline Phosphatase 88 # Total Protein 5.6 L Albumin 3.0 L Globulin 2.60 Albumin/Globulin Ratio 1.15 Test 12/24/16 06:02 Bedside Glucose 222 H Medications Medications Current Medications Ondansetron HCl (Zofran Inj) 4 mg Q6H PRN IV NAUSEA AND/OR VOMITING; Start at 16:00 Bisacodyl (Dulcolax Supp) 10 mg DAILY PRN SC CONSTIPATION; Start 12/16/16 at 16 :00 Heparin Sodium (Porcine) (Heparin (5000 Units/0.5 ml)) 5,000 unit Q12 SC Last administered on 12/23/16 20:12; Admin Dose 5,000 UNIT; Start 12/16/16 at 21:00 Miscellaneous Information 1 ea NOTE XX ; Start 12/16/16 at 18:00 Glucose (Glutose) 15 gm Q15M PRN PO DECREASED GLUCOSE; Start 12/16/16 at 18:00 Glucose (Glutose) 22.5 gm Q15M PRN PO DECREASED GLUCOSE; Start 12/16/16 at 18: 00 Dextrose (D50w Syringe) 25 ml Q15M PRN IV DECREASED GLUCOSE; Start 12/16/16 at 18:00 Dextrose (D50w Syringe) 50 ml Q15M PRN IV DECREASED GLUCOSE; Start 12/16/16 at 18:00 Glucagon (Glucagen) 1 mg Q15M PRN IM DECREASED GLUCOSE; Start 12/16/16 at 18:00 Glucose (Glutose) 15 gm Q15M PRN BUCCAL DECREASED GLUCOSE; Start 12/16/16 at 18 :00 Insulin Aspart (Novolog Insulin Pen) (Adult SC Insulin - Moder... Q6 SC Last administered on 12/24/16 06:04; Admin Dose 6 UNIT; Start 12/17/16 at 00:00 Epoetin Magdiel (Epogen (Non Esrd/Non Oncology)) 10,000 units MoWeFr@17 SC Last administered on 12/21/16 18:14; Admin Dose 10,000 UNITS; Start 12/17/16 at 17: 00 Pantoprazole (Protonix Iv) 40 mg BID@ IV Last administered on 12/24/16 05: 55; Admin Dose 40 MG; Start 12/17/16 at 18:00 Hydralazine HCl (Apresoline) 10 mg Q6 IV Last administered on 12/24/16 05:53; Admin Dose 10 MG; Start 12/17/16 at 13:30 Morphine Sulfate (morphine) 1 mg Q4H PRN IV PAIN LEVEL 1-5; Start 12/20/16 at 11:30 Nitroglycerin 1 tab 1 tab Q5M PRN SL ANGINA Last administered on 12/21/16 01: 06; Admin Dose 1 TAB; Start 12/21/16 at 00:30 Dopamine HCl/ Dextrose 250 ml @ 5.738 mls/ hr TITRATE IV Last administered on 12/21/16 08:44; Admin Dose 5.738 MLS/HR; Start 12/21/16 at 08:30 Dexmedetomidine HCl/Sodium Chloride (Precedex/NS) 50 ml @ 3.82 mls/hr TITRATE IV Last administered on 12/22/16 12:54; Admin Dose 7.65 MLS/HR; Start 12/21/16 at 08:30 Clopidogrel Bisulfate (plaVIX) 75 mg DAILY PO Last administered on 12/23/16 08: 29; Admin Dose 75 MG; Start 12/22/16 at 09:00 Al Hydrox/Mg Hydrox/Simethicone (Mag-Al Plus) 30 ml Q4H PRN PO GASTROINTESTINAL UPSET; Start 12/21/16 at 12:00 Ondansetron HCl (Zofran Inj) 4 mg Q4H PRN IV NAUSEA AND/OR VOMITING; Start at 12:00 Levothyroxine Sodium (Synthroid Iv) 25 mcg DAILY@06 IV Last administered on 12/24 05:58; Admin Dose 25 MCG; Start 12/22/16 at 10:00 Amiodarone HCl (Cordarone) 200 mg BID NGT Last administered on 12/23/16 20:06; Admin Dose 200 MG; Start 12/22/16 at 12:30 Magnesium Oxide 400 mg 400 mg DAILY NGT Last administered on 12/23/16 08:29; Admin Dose 400 MG; Start 12/22/16 at 12:30 Piperacillin Sod/ Tazobactam Sod 50 ml @ 100 mls/hr Q8 IVPB Last administered on 12/24/16 06:01; Admin Dose 100 MLS/HR; Start 12/22/16 at 14:00 Norepinephrine/ Dextrose (Levophed/D5W) 500 ml @ 1.87 mls/hr TITRATE IV ; Start 12/22/16 at 17:00 Zolpidem Tartrate (Ambien) 5 mg HS PRN PO INSOMNIA Last administered on 20:32; Admin Dose 5 MG; Start 12/22/16 at 22:00 Atorvastatin Calcium (Lipitor) 40 mg HS PO Last administered on 12/23/16 20:07 ; Admin Dose 40 MG; Start 12/23/16 at 21:00 Metoprolol Succinate 25 mg 25 mg BID PO Last administered on 12/23/16 20:07; Admin Dose 25 MG; Start 12/23/16 at 21:00 Sodium Bicarbonate/ Dextrose/Sodium Chloride (Na Bicarb/D5-1/ 2ns) 1,100 ml @ 75 mls/hr [id number] IV Last administered on 12/24/16 01:18; Admin Dose 75 MLS/HR ; Start 12/23/16 at 23:45 JULIANNE ESTRELLA MD Dec 24, 2016 08:13
[2016-12-24 08:16] LABS: AADO2 Arterial 255.7 mmHg (7.0-24.0); Allen Test ACCEPTAB; Arterial Base Excess -8.5 mmol/L (-3.0-3); Arterial COHb 0 % (0.0-3.0); Arterial Fraction of Oxyhgb 93.4 % (93.0-99.0); Arterial HCO3 15.1 mmol/L (22.0-26.0); Arterial MetHb 0.4 % (0.0-1.5); Arterial Total Hemglobin 11.1 g/dl (12.0-18.0); MODE HFNC
--- NOTE | 2016-12-24 08:17 | RADRPT ---
PROCEDURE: XR Chest. CLINICAL INDICATION: Shortness of breath. TECHNIQUE: Single frontal view. COMPARISON: 12/23/2016. FINDINGS: There is interstitial disease bilaterally in the mid and lower lung zones consistent with pulmonary edema, worse than seen previously. Superimposed pneumonia at the right lung base cannot be excluded . The heart is enlarged. There is calcification in the aorta consistent with atherosclerosis. There are sternal wires and mediastinal clips. There is no pleural effusion. There is no pneumothorax. IMPRESSION: 1. Worse appearance of the lungs consistent with pulmonary edema and possible right basilar pneumon ia. 2. Cardiomegaly and atherosclerosis. 3. Previous median sternotomy. RPTAT: QQ .Ousmane Diallo MD, MD Date Time Electronically viewed and signed by .Ousmane Diallo MD, on 12/24/2016 08:17 .R/
[2016-12-24] MEDS: AMIODARONE 200 MG TAB PO SCH ×2 (08:46→20:33)
[2016-12-24] MEDS: CLOPIDOGREL 75 MG TAB PO SCH (08:46)
[2016-12-24] MEDS: METOPROLOL (XL) 25 MG TAB PO SCH ×2 (08:47→20:33)
[2016-12-24] MEDS: HEPARIN 5,000 UNIT/0.5 ML VIAL SC SCH ×2 (08:48→20:35)
[2016-12-24] MEDS ORDERED: BUMETANIDE 6 MG in DEXTROSE 5% 36 ML IV ONE (09:00)
[2016-12-24] MEDS ORDERED: HEPARIN 1000 UNITS/ML 10 ML INJ ONE (09:36)
[2016-12-24] MEDS: morphine 2 MG INJ IV PRN (10:20)
--- NOTE | 2016-12-24 11:20 | OPR ---
Date/Time of Note Date/Time of Note DATE: 12/24/16 TIME: 11:19 Operative Report Free Text/Dictation DATE OF OPERATION: 12/24/2016 SURGEON: Garth Chao MD PREOPERATIVE DIAGNOSIS: Renal failure POSTOPERATIVE DIAGNOSIS: same ANESTHESIA: Local BLOOD LOSS: minimal COMPLICATIONS: None. ACCESS: Right common femoral vein INDICATIONS: This is a 81 year-old male with renal failure requiring dialysis. Patient and family have been informed of the alternatives, risks, and benefits. Risks including but not limited to bleeding, thrombosis, embolization , myocardial infarction, , device malfunction, infection, pneumothorax, nephrotoxicity and patient has agreed to proceed. PROCEDURE: 1. Ultrasound guided access of right common femoral vein 2. Emergent Right common femoral vein non-tunneled hemodialysis catheter placement DESCRIPTION: The patient was in supine position in her ICU bed. Bed was placed in slight Trendelenburg position and the groin was prepped and draped with sterile technique. The central catheter was flushed with heparin to ensure function of each port. Landmarks were identified and the skin entry site was chosen using ultrasound guidance. The skin And subcutaneous tissue were anesthetized with 1% lidocaine. The vein was then located with a needle with a 10 mL syringe using ultrasound guidance. The needle was then directed towards the vein and was entered. The needle position was secured and syringe was removed. The hub was occluded to prevent venous air embolus. The guidewire was passed easily and the needle was removed while the wire was held in place. A small incision was then made at the point of the wire entry. The dilator was placed over the wire and the tract gently dilated. The catheter was fed over the wire, ensuring the wire exited from the port before advancing the catheter. The catheter was inserted to the desired depth and the wire removed. Each port was aspirated to ensure adequate blood flow and then flushed with heparinized saline solution. The catheter was secured in place with a 2-0 nylon suture and a sterile dressing was applied. The patient tolerated the procedure well and was in stable condition. All instrument, sponge and needle counts were correct 2. GARTH CHAO MD Dec 24, 2016 11:20
--- NOTE | 2016-12-24 11:58 | CONS ---
Date/Time of Note Date/Time of Note DATE: 12/24/16 TIME: 11:54 Assessment/Plan Assessment/Plan Additional Assessment/Plan Chest x-ray was reviewed from today which is showing cardiomegaly, bibasilar atelectatic/infiltrative changes are present. Mild pulmonary vascular congestion is present. Sternal wires are identified. Assessment recommendations; 1. Patient admitted with cardiac arrest now successfully extubated with excellent overall clinical status. 2. History of coronary artery disease status post bypass surgery in the past. 3. Acute renal failure, requiring hemodialysis. 4. History of cardiac arrhythmia. 5. History of diabetes and hypertension. 6. History of hypothyroidism and anemia. 7. History of hyperlipidemia. Continue current supportive care. Patient responding well to the current treatment regimen. Consultation Date/Type/Reason Admit Date/Time Dec 16, 2016 at 17:40 Initial Consult Date 12/21/16 Type of Consultation: Pulmonary/critical care Referring Provider: JULIANNE ESTRELLA MD 24 HR Interval Summary Free Text/Dictation Patient condition is stable. Denies any shortness of breath, chest pain, wheezing. Any fever chills. Currently getting hemodialysis at bedside. General exam; elderly male, awake alert currently in no distress. Exam/Review of Systems Vital Signs Vitals Vital Signs Date Time Temp Pulse Resp B/P Pulse Ox O2 Delivery O2 Flow Rate FiO2 12/24/16 11:30 87 12/24/16 11:00 32 136/74 95 High Flow 12/24/16 08:00 98.4 12/24/16 04:51 80 12/23/16 21:00 10.0 Intake and Output 12/23/16 12/23/16 12/24/16 15:00 23:00 07:00 Intake Total 1008 ml 1520 ml 465 ml Output Total 250 ml 235 ml 435 ml Balance 758 ml 1285 ml 30 ml Exam HEENT exam is; supple neck, no JVD. No lymphadenopathy. Midline trachea. No thyromegaly. Patient has fair dentition. Has bilateral intraocular lens implants. Chest examination I: Diminished but clear breath sounds bilaterally. S1-S2 audible, no murmurs. Regular rhythm. There is a well-healed sternal scar. Abdomen examination; soft, nontender. No organomegaly. Bowel sounds audible. Extremity exam ; trace peripheral edema. There are extensive ecchymosis involving the right elbow area. Pulses 1+ bilaterally. 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 Results Result Diagram: 12/24/16 0430 12/24/16 0430 Results 24 hrs Laboratory Tests Test 12/23/16 12:20 12/23/16 14:00 12/23/16 17:48 12/23/16 21:12 Bedside Glucose 225 H 199 Stool Occult Blood NEGATIVE Blood Gas Specimen Source Blood arterial Arterial Blood Date Drawn 12/23/2016 9:22:23 PM Arterial Blood pH (Temp corrected) 7.251 *L Arterial Blood pCO2 (Temp correct) 41.1 Arterial Blood pO2 (Temp corrected) 65.3 L Arterial Blood HCO3 17.7 L Arterial Blood Base Excess -9.0 L Arterial Blood Oxygen Saturation 89.4 L Oniel Test ACCEPTAB Arterial Blood Gas Puncture Site Right Radial Arterial Blood Carboxyhemoglobin 0.3 Arterial Blood Methemoglobin 0.3 Blood Gas A-a O2 Differential 606.6 H Oxyhemoglobin Percent 88.9 L Total Hemoglobin 12.5 Blood Gas Temperature 37.0 Blood Gas Actual Respiration Rate 33 Blood Gas Modality MASK - NRB FiO2 100.0 Blood Gas Critical Value Read Back Carina BAUGH RPauletteNPaulette Blood Gas Notified Whom FAHEEM PEREZP Blood Gas Notified Time 12/23/2016 9:33:34 PM Test 12/23/16 22:56 12/24/16 00:46 12/24/16 04:30 12/24/16 06:02 Blood Gas Specimen Source Blood arterial Arterial Blood Date Drawn 12/23/2016 11:00:08 PM Arterial Blood pH (Temp corrected) 7.268 *L Arterial Blood pCO2 (Temp correct) 36.0 Arterial Blood pO2 (Temp corrected) 76.8 L Arterial Blood HCO3 16.1 L Arterial Blood Base Excess -10.0 L Arterial Blood Oxygen Saturation 94.2 L Oniel Test ACCEPTAB Arterial Blood Gas Puncture Site Right Radial Arterial Blood Carboxyhemoglobin 0.3 Arterial Blood Methemoglobin 0.3 Blood Gas A-a O2 Differential 600.2 H Oxyhemoglobin Percent 93.6 Total Hemoglobin 11.9 L Blood Gas Temperature 37.0 Blood Gas Actual Respiration Rate 31 Blood Gas Modality HFNC FiO2 100.0 Blood Gas Critical Value Read Back Carina VEGA R.NPaulette Blood Gas Notified Whom FAHEEM MEDICAL CHEMIST Blood Gas Notified Time 12/23/2016 11:07:55 PM Bedside Glucose 198 222 H White Blood Count 11.0 #H Red Blood Count 3.62 #L Hemoglobin 10.2 #L Hematocrit 33.2 #L Mean Corpuscular Volume 91.7 Mean Corpuscular Hemoglobin 28.2 L Mean Corpuscular Hemoglobin Concent 30.7 L Red Cell Distribution Width 18.5 H Platelet Count 118 L Mean Platelet Volume 12.1 H Neutrophils % 76.2 Lymphocytes % 4.6 L Monocytes % 9.7 Eosinophils % 0.7 Basophils % 0.3 Nucleated Red Blood Cells % 1.3 H Neutrophils # 8.4 H Lymphocytes # 0.5 L Monocytes # 1.1 H Eosinophils # 0.1 Basophils # 0.0 Nucleated Red Blood Cells # 0.1 H Sodium Level 144 Potassium Level 4.1 Chloride Level 112 H Carbon Dioxide Level 18 L Anion Gap 18 #H Blood Urea Nitrogen 69 H Creatinine 4.85 H Glucose Level 200 Calcium Level 7.2 L Phosphorus Level 4.7 Magnesium Level 2.5 Total Bilirubin 0.4 Direct Bilirubin 0.00 Indirect Bilirubin 0.4 Aspartate Amino Transf (AST/SGOT) 91 H Alanine Aminotransferase (ALT/SGPT) 117 H Alkaline Phosphatase 88 # Total Protein 5.6 L Albumin 3.0 L Globulin 2.60 Albumin/Globulin Ratio 1.15 Test 12/24/16 07:00 Blood Gas Specimen Source Blood arterial Arterial Blood Date Drawn 12/24/2016 7:41:11 AM Arterial Blood pH (Temp corrected) 7.384 Arterial Blood pCO2 (Temp correct) 25.9 L Arterial Blood pO2 (Temp corrected) 71.7 L Arterial Blood HCO3 15.1 L Arterial Blood Base Excess -8.5 L Arterial Blood Oxygen Saturation 93.8 L Oniel Test ACCEPTAB Arterial Blood Gas Puncture Site Right Radial Arterial Blood Carboxyhemoglobin 0 Arterial Blood Methemoglobin 0.4 Blood Gas A-a O2 Differential 255.7 H Oxyhemoglobin Percent 93.4 Total Hemoglobin 11.1 L Blood Gas Temperature 37.0 Blood Gas Modality HFNC FiO2 50.0 Blood Gas Notified Whom JLD Blood Gas Notified Time 12/24/2016 8:16:01 AM Medications Medications Current Medications Ondansetron HCl (Zofran Inj) 4 mg Q6H PRN IV NAUSEA AND/OR VOMITING; Start at 16:00 Bisacodyl (Dulcolax Supp) 10 mg DAILY PRN [place] CONSTIPATION; Start 12/16/16 at 16 :00 Heparin Sodium (Porcine) (Heparin (5000 Units/0.5 ml)) 5,000 unit Q12 SC Last administered on 12/24/16 08:48; Admin Dose 5,000 UNIT; Start 12/16/16 at 21:00 Miscellaneous Information 1 ea NOTE XX ; Start 12/16/16 at 18:00 Glucose (Glutose) 15 gm Q15M PRN PO DECREASED GLUCOSE; Start 12/16/16 at 18:00 Glucose (Glutose) 22.5 gm Q15M PRN PO DECREASED GLUCOSE; Start 12/16/16 at 18: 00 Dextrose (D50w Syringe) 25 ml Q15M PRN IV DECREASED GLUCOSE; Start 12/16/16 at 18:00 Dextrose (D50w Syringe) 50 ml Q15M PRN IV DECREASED GLUCOSE; Start 12/16/16 at 18:00 Glucagon (Glucagen) 1 mg Q15M PRN IM DECREASED GLUCOSE; Start 12/16/16 at 18:00 Glucose (Glutose) 15 gm Q15M PRN BUCCAL DECREASED GLUCOSE; Start 12/16/16 at 18 :00 Insulin Aspart (Novolog Insulin Pen) (Adult SC Insulin - Moder... Q6 SC Last administered on 12/24/16 06:04; Admin Dose 6 UNIT; Start 12/17/16 at 00:00 Morphine Sulfate (morphine) 1 mg Q4H PRN IV PAIN LEVEL 1-5 Last administered on 12/24/16 10:20; Admin Dose 1 MG; Start 12/20/16 at 11:30 Nitroglycerin 1 tab 1 tab Q5M PRN SL ANGINA Last administered on 12/21/16 01: 06; Admin Dose 1 TAB; Start 12/21/16 at 00:30 Dopamine HCl/ Dextrose 250 ml @ 5.738 mls/ hr TITRATE IV Last administered on 12/21/16 08:44; Admin Dose 5.738 MLS/HR; Start 12/21/16 at 08:30 Clopidogrel Bisulfate (plaVIX) 75 mg DAILY PO Last administered on 12/24/16 08: 46; Admin Dose 75 MG; Start 12/22/16 at 09:00 Ondansetron HCl 4 mg 4 mg Q4H PRN IV NAUSEA AND/OR VOMITING; Start 12/21/16 at 12:00 Piperacillin Sod/ Tazobactam Sod 50 ml @ 100 mls/hr Q8 IVPB Last administered on 12/24/16 06:01; Admin Dose 100 MLS/HR; Start 12/22/16 at 14:00 Norepinephrine/ Dextrose (Levophed/D5W) 500 ml @ 1.87 mls/hr TITRATE IV ; Start 12/22/16 at 17:00 Zolpidem Tartrate (Ambien) 5 mg HS PRN PO INSOMNIA Last administered on 20:32; Admin Dose 5 MG; Start 12/22/16 at 22:00 Atorvastatin Calcium (Lipitor) 40 mg HS PO Last administered on 12/23/16 20:07 ; Admin Dose 40 MG; Start 12/23/16 at 21:00 Metoprolol Succinate (Toprol Xl) 25 mg BID PO Last administered on 12/24/16 08: 47; Admin Dose 25 MG; Start 12/23/16 at 21:00 Amiodarone HCl (Cordarone) 200 mg BID PO Last administered on 12/24/16 08:46; Admin Dose 200 MG; Start 12/24/16 at 09:00 Hydralazine HCl (Apresoline) 10 mg Q6H PRN IV ELEVATED BLOOD PRESSURE; Start at 08:00 Pantoprazole (Protonix Tab) 40 mg BID@06,18 PO ; Start 12/24/16 at 18:00 Levothyroxine Sodium 50 mcg 50 mcg DAILY@06 PO ; Start 12/25/16 at 06:00 Bumetanide/ Dextrose (Bumex/D5W) 60 ml @ 10 mls/hr Q6H ONCE IV Last administered on 12/24/16 09:30; Admin Dose 10 MLS/HR; Start 12/24/16 at 09:00; Stop 12/24/16 at 14:59 JUAN FIGUEREDO Dec 24, 2016 11:58
--- NOTE | 2016-12-24 12:27 | CONS ---
Date/Time of Note Date/Time of Note DATE: 12/24/16 TIME: 12:20 Assessment/Plan Assessment/Plan Chief Complaint/Hosp Course Impression: - hypovolemic shock - NSTEMI - A/CKD- likely from shock + possible contrast nephropathy. nephrology initiating dialysis - Acute on chronic systolic heart failure- 2/2 nstemi, fluid resuscitation. fluid mgmt with dialysis given a/ckd - Multi vessel coronary artery disease - mid [id number] severe stenosis, likely related to compression from surgical clips - SBO now resolved - Respiratory failure- extubated, but with worsening congestion. - VT/VF events Recommendations: - cont asa 81mg daily and plavix 75 mg daily given NSTEMI - careful fluid status, defer to renal. plan to initiate dialysis - Maintain K>4, Mg>2 - Continue on amiodarone PO for now - cont metoprolol, slowly increase as tolreated by bp - if renal function improves will consider ACEi/ARB or consider isordil/ hydralazine combo for CHF - if further electrical instability consider mexilitine Problems: Consultation Date/Type/Reason Admit Date/Time Dec 16, 2016 at 17:40 Initial Consult Date 12/21/16 Type of Consultation: Cardiology Referring Provider: JULIANNE ESTRELLA MD 24 HR Interval Summary Free Text/Dictation pt awake/alert. reports sob. no cp, palpitations, dizziness. pt hd stable, off pressors. however cr uptrending, d/w Dr. Estrella who is planning to start temporary dialysis today. tele reviewed, no events. nsr 80s-90s Constitutional: improved Detailed Summary ENT: no complaints Respiratory: shortness of breath Cardiovascular: no complaints Gastrointestinal: no complaints Exam/Review of Systems Vital Signs Vitals Vital Signs Date Time Temp Pulse Resp B/P Pulse Ox O2 Delivery O2 Flow Rate FiO2 12/24/16 12:00 86 12/24/16 11:00 32 136/74 95 High Flow 12/24/16 08:00 98.4 12/24/16 04:51 80 12/23/16 21:00 10.0 Intake and Output 12/23/16 12/23/16 12/24/16 15:00 23:00 07:00 Intake Total 1008 ml 1520 ml 465 ml Output Total 250 ml 235 ml 435 ml Balance 758 ml 1285 ml 30 ml Exam Constitutional: alert, oriented, well developed Psych: nl mood/affect Head: atraumatic, normocephalic Eyes: nl conjunctiva Neck: jvd (10), non-tender, supple Respiratory: congested cough, crackles/rales, diminished breath sounds Cardiovascular: nl pulses, regular rate and rhythm Gastrointestinal: nl liver, spleen 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 Results Result Diagram: 12/24/16 0430 12/24/16 0430 Results 24 hrs Laboratory Tests Test 12/23/16 14:00 12/23/16 17:48 12/23/16 21:12 12/23/16 22:56 Stool Occult Blood NEGATIVE Bedside Glucose 199 Blood Gas Specimen Source Blood arterial Blood arterial Arterial Blood Date Drawn 12/23/2016 9:22:23 PM 12/23/2016 11:00:08 PM Arterial Blood pH (Temp corrected) 7.251 *L 7.268 *L Arterial Blood pCO2 (Temp correct) 41.1 36.0 Arterial Blood pO2 (Temp corrected) 65.3 L 76.8 L Arterial Blood HCO3 17.7 L 16.1 L Arterial Blood Base Excess -9.0 L -10.0 L Arterial Blood Oxygen Saturation 89.4 L 94.2 L Oniel Test ACCEPTAB ACCEPTAB Arterial Blood Gas Puncture Site Right Radial Right Radial Arterial Blood Carboxyhemoglobin 0.3 0.3 Arterial Blood Methemoglobin 0.3 0.3 Blood Gas A-a O2 Differential 606.6 H 600.2 H Oxyhemoglobin Percent 88.9 L 93.6 Total Hemoglobin 12.5 11.9 L Blood Gas Temperature 37.0 37.0 Blood Gas Actual Respiration Rate 33 31 Blood Gas Modality MASK - NRB HFNC FiO2 100.0 100.0 Blood Gas Critical Value Read Back Carina BAUGH R.N., A. R.N. Blood Gas Notified Whom FAHEEM MAYEN RCP Blood Gas Notified Time 12/23/2016 9:33:34 PM 12/23/2016 11:07:55 PM Test 12/24/16 00:46 12/24/16 04:30 12/24/16 06:02 12/24/16 07:00 Bedside Glucose 198 222 H White Blood Count 11.0 #H Red Blood Count 3.62 #L Hemoglobin 10.2 #L Hematocrit 33.2 #L Mean Corpuscular Volume 91.7 Mean Corpuscular Hemoglobin 28.2 L Mean Corpuscular Hemoglobin Concent 30.7 L Red Cell Distribution Width 18.5 H Platelet Count 118 L Mean Platelet Volume 12.1 H Neutrophils % 76.2 Lymphocytes % 4.6 L Monocytes % 9.7 Eosinophils % 0.7 Basophils % 0.3 Nucleated Red Blood Cells % 1.3 H Neutrophils # 8.4 H Lymphocytes # 0.5 L Monocytes # 1.1 H Eosinophils # 0.1 Basophils # 0.0 Nucleated Red Blood Cells # 0.1 H Sodium Level 144 Potassium Level 4.1 Chloride Level 112 H Carbon Dioxide Level 18 L Anion Gap 18 #H Blood Urea Nitrogen 69 H Creatinine 4.85 H Glucose Level 200 Calcium Level 7.2 L Phosphorus Level 4.7 Magnesium Level 2.5 Total Bilirubin 0.4 Direct Bilirubin 0.00 Indirect Bilirubin 0.4 Aspartate Amino Transf (AST/SGOT) 91 H Alanine Aminotransferase (ALT/SGPT) 117 H Alkaline Phosphatase 88 # Total Protein 5.6 L Albumin 3.0 L Globulin 2.60 Albumin/Globulin Ratio 1.15 Blood Gas Specimen Source Blood arterial Arterial Blood Date Drawn 12/24/2016 7:41:11 AM Arterial Blood pH (Temp corrected) 7.384 Arterial Blood pCO2 (Temp correct) 25.9 L Arterial Blood pO2 (Temp corrected) 71.7 L Arterial Blood HCO3 15.1 L Arterial Blood Base Excess -8.5 L Arterial Blood Oxygen Saturation 93.8 L Oniel Test ACCEPTAB Arterial Blood Gas Puncture Site Right Radial Arterial Blood Carboxyhemoglobin 0 Arterial Blood Methemoglobin 0.4 Blood Gas A-a O2 Differential 255.7 H Oxyhemoglobin Percent 93.4 Total Hemoglobin 11.1 L Blood Gas Temperature 37.0 Blood Gas Modality HFNC FiO2 50.0 Blood Gas Notified Whom JLD Blood Gas Notified Time 12/24/2016 8:16:01 AM Medications Medications Current Medications Ondansetron HCl (Zofran Inj) 4 mg Q6H PRN IV NAUSEA AND/OR VOMITING; Start at 16:00 Bisacodyl (Dulcolax Supp) 10 mg DAILY PRN [place] CONSTIPATION; Start 12/16/16 at 16 :00 Heparin Sodium (Porcine) (Heparin (5000 Units/0.5 ml)) 5,000 unit Q12 SC Last administered on 12/24/16 08:48; Admin Dose 5,000 UNIT; Start 12/16/16 at 21:00 Miscellaneous Information 1 ea NOTE XX ; Start 12/16/16 at 18:00 Glucose (Glutose) 15 gm Q15M PRN PO DECREASED GLUCOSE; Start 12/16/16 at 18:00 Glucose (Glutose) 22.5 gm Q15M PRN PO DECREASED GLUCOSE; Start 12/16/16 at 18: 00 Dextrose (D50w Syringe) 25 ml Q15M PRN IV DECREASED GLUCOSE; Start 12/16/16 at 18:00 Dextrose (D50w Syringe) 50 ml Q15M PRN IV DECREASED GLUCOSE; Start 12/16/16 at 18:00 Glucagon (Glucagen) 1 mg Q15M PRN IM DECREASED GLUCOSE; Start 12/16/16 at 18:00 Glucose (Glutose) 15 gm Q15M PRN BUCCAL DECREASED GLUCOSE; Start 12/16/16 at 18 :00 Insulin Aspart (Novolog Insulin Pen) (Adult SC Insulin - Moder... Q6 SC Last administered on 12/24/16 06:04; Admin Dose 6 UNIT; Start 12/17/16 at 00:00 Morphine Sulfate (morphine) 1 mg Q4H PRN IV PAIN LEVEL 1-5 Last administered on 12/24/16 10:20; Admin Dose 1 MG; Start 12/20/16 at 11:30 Nitroglycerin 1 tab 1 tab Q5M PRN SL ANGINA Last administered on 12/21/16 01: 06; Admin Dose 1 TAB; Start 12/21/16 at 00:30 Dopamine HCl/ Dextrose 250 ml @ 5.738 mls/ hr TITRATE IV Last administered on 12/21/16 08:44; Admin Dose 5.738 MLS/HR; Start 12/21/16 at 08:30 Clopidogrel Bisulfate (plaVIX) 75 mg DAILY PO Last administered on 12/24/16 08: 46; Admin Dose 75 MG; Start 12/22/16 at 09:00 Ondansetron HCl 4 mg 4 mg Q4H PRN IV NAUSEA AND/OR VOMITING; Start 12/21/16 at 12:00 Piperacillin Sod/ Tazobactam Sod 50 ml @ 100 mls/hr Q8 IVPB Last administered on 12/24/16 06:01; Admin Dose 100 MLS/HR; Start 12/22/16 at 14:00 Norepinephrine/ Dextrose (Levophed/D5W) 500 ml @ 1.87 mls/hr TITRATE IV ; Start 12/22/16 at 17:00 Zolpidem Tartrate (Ambien) 5 mg HS PRN PO INSOMNIA Last administered on 20:32; Admin Dose 5 MG; Start 12/22/16 at 22:00 Atorvastatin Calcium (Lipitor) 40 mg HS PO Last administered on 12/23/16 20:07 ; Admin Dose 40 MG; Start 12/23/16 at 21:00 Metoprolol Succinate (Toprol Xl) 25 mg BID PO Last administered on 12/24/16 08: 47; Admin Dose 25 MG; Start 12/23/16 at 21:00 Amiodarone HCl (Cordarone) 200 mg BID PO Last administered on 12/24/16 08:46; Admin Dose 200 MG; Start 12/24/16 at 09:00 Hydralazine HCl (Apresoline) 10 mg Q6H PRN IV ELEVATED BLOOD PRESSURE; Start at 08:00 Pantoprazole (Protonix Tab) 40 mg BID@06,18 PO ; Start 12/24/16 at 18:00 Levothyroxine Sodium 50 mcg 50 mcg DAILY@06 PO ; Start 12/25/16 at 06:00 Bumetanide/ Dextrose (Bumex/D5W) 60 ml @ 10 mls/hr Q6H ONCE IV Last administered on 12/24/16 09:30; Admin Dose 10 MLS/HR; Start 12/24/16 at 09:00; Stop 12/24/16 at 14:59 Procedures Procedures cxr images reviewed Worse pulmonary edema SAMY ROSALES Dec 24, 2016 12:27
--- NOTE | 2016-12-24 14:32 | CONS ---
DATE OF ADMISSION: 12/16/2016 DATE OF CONSULTATION: 12/24/2016 VASCULAR SURGERY CONSULTATION Dear Doctors: Mr. Watson is an 81-year-old gentleman with a myriad of medical conditions who was admitted to [facility] for evaluation and observation of possible small bowel obstruction and for evaluation of his coronary artery disease in which he had recently underwent coronary rito terization. During this period of time, the patient has had a history of chronic kidney disease in which his renal function had worsened with his recent creatinine being 4.8 and developing uremia in addition to increased anion gap. Vascular surgery consultation was obtained for evaluation and gene gent dialysis catheter placement. At the moment, the patient denies fever, chills, nausea, vomiting , lower extremity rest pain. The patient does have chest pain and shortness of breath, and he is cu rrently being evaluated by our cardiology colleagues. REVIEW OF SYSTEMS: A 12-point review performed and negative except what is mentioned in the HPI. PAST MEDICAL HISTORY: Entails being overweight, BMI of 25.6, coronary artery disease, hypertension, hypothyroidism, dyslipidemia, myelofibrosis, colon polyps, diverticulosis, diabetes. PAST SURGICAL HISTORY: CABG, appendectomy, coronary catheterization, having NSTEMI. ALLERGIES: NO KNOWN DRUG ALLERGIES. 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 Denies any current alcohol, tobacco, or illicit drug use. FAMILY HISTORY: Coronary artery disease. PHYSICAL EXAMINATION: GENERAL: He is alert and oriented x3, no apparent distress, some discomfort with his breathing. HEENT: Normocephalic, atraumatic. EOMI. Mucosa moist. NECK: Supple. No carotid bruit. PULMONARY: Coarse breath sounds bilaterally and some crackles at the bases. CARDIOVASCULAR: S1, S2 present. No murmurs identified. ABDOMEN: Soft, nontender, nondistended. Bowel sounds positive. EXTREMITIES: Right lower extremity: Palpable femoral pulse, nonpalpable pedal pulse. Motor, senso ry intact. Cap refill 2 to 3 seconds. No ulcers identified. Left lower extremity: Palpable femoral pulse, nonpalpable pedal pulse. Motor and sensory intact. Capillary refill 2 to 3 seconds. No ulcers identified. There is also a left groin triple lumen cat heter that is intact. Right upper extremity: Palpable brachial pulse. Motor and sensory intact. Cap refill 2 to 3 seco nds. There is a venipuncture site that has been removed with erythema surrounding that area. There are multiple areas of ecchymosis from previous blood draws. The patient did have an upper extremit y venous ultrasound that identified having a thrombus within a right cephalic vein from the upper ar m to the forearm. ASSESSMENT AND PLAN: 1. Sepsis and acute on chronic renal failure: It seems the patient's renal function has worsened a nd requiring emergent dialysis. Will plan for an emergent right common femoral vein Alfredo cathete r placement today. We will continue to follow his progress to evaluate whether or not he will requi re permanent catheter for discharge. 2. Right upper extremity superficial thrombophlebitis: It seems that the patient has developed the thrombosis of his cephalic vein in the upper arm. No further vascular interventions are needed. W tom recommend for the patient in to the have warm compresses or NSAIDs for comfort and will continu e to monitor. 3. The patient likely has developed some cellulitis in the right upper extremity secondary to previ ous IV site infection, he may require antibiotics. We will continue to follow and will have the [facility] service provide his basic antibiotics for that. 4. Discussed findings, plan, and management with the patient and the family at the bedside and they understand. Thank you for allowing us to partake in the care of your patient. Please call with any questions. Optimize vascular status (BP meds, diet, nutrition, exercise, sugar control, antiplatelets). Dictated By: LORENZO COOPER/ROSANGELA Conf#: [id number] DID#: [id number]
[2016-12-24] MEDS: PANTOPRAZOLE (EC) 40 MG TAB PO SCH (18:39)
[2016-12-24] MEDS: ZOLPIDEM 5 MG TAB PO PRN (20:32)
[2016-12-24] MEDS: ATORVASTATIN 40 MG TAB PO SCH (20:32)
--- NOTE | 2016-12-24 22:06 | PN ---
Date/Time of Note Date/Time of Note DATE: 12/24/16 TIME: 22:03 Assessment/Plan Lines/Catheters IV Catheter Type (from Nrsg): Alfredo Marcum in Place (from Nrsg): Yes Assessment/Plan Assessment/Plan [facility] Progress Note Date of Service: 12/24/16 Today's Impression & Plan: Overall stable. Remains extubated and abd continues to be benign. + return of bowel function. No indication for acute surgical intervention for his abdomen. Prognosis is improved. Renal function deterioration noted. With above assessment, I've recommended the following for today: 1. Avance diet to regular as tolerated 2. Increase activity 3. Monitor and investigate acidemia, drop in Hg and renal function 4. Cont medical cares Thank you again for your great care of this very pleasant patient and wonderful family. If there are any questions, please feel free to call me at [phone]. TOTAL VISIT TIME: 20 minutes of which more than half was spent in [id number] discussion with the patient, possibly including family, as well as coordination of care between multiple physicians and providers. Disclaimer: Inadvertent spelling or grammatical errors are likely due to EHR/ dictation software use and do not reflect on the overall quality of patient care. Updated Clinical Summary: The patient is a very pleasant 81-year-old gentleman with comorbidities including BMI 25.6 and prior appendectomy as well as coronary artery disease status post bypass grafting, presenting to [facility] through the emergency department with abdominal pain, nausea, and vomiting. Cardiac event (? arrhythmia with rise in troponin) morning hours on 12/21/16 requiring intubation and transfer to ICU. Extubated 12/22/16. Renal function deteriorated through 12/24/16. COMORBIDITIES: 1. BMI 25.6. 2. Status post coronary artery bypass graft surgery. 3. Status post appendectomy. 4. Hypertension. 5. Hypothyroidism. 6. Dyslipidemia. 7. Myelofibrosis. 8. Colon polyps. 9. Diverticulosis. 10. Diabetes. 11. Cardiac event am 12/21/16 requiring intubation and transfer to ICU at [facility]; extubated 12/22/16 Subjective: No major events or complaints overnight. Extubated and reports feeling ok. No abd pain. No nausea or vomiting. + bowel activity. - activity. + bloody nose. Objective: Vitals: See below Exam: GENERAL: On exam, the patient was laying in bed and appeared to be comfortable and in no acute distress. Slight bloody nose. ABDOMEN: Soft, nontender and nondistended. There are no peritoneal signs or guarding. SKIN: Skin appears to be pink and feels warm to touch. NEUROLOGIC: Awake, alert and follows commands appropriately. Exam/Review of Systems Vital Signs Vitals Vital Signs Date Time Temp Pulse Resp B/P Pulse Ox O2 Delivery O2 Flow Rate FiO2 12/24/16 21:00 77 25 120/101 97 High Flow 12/24/16 20:00 98.8 12/24/16 19:53 50 12/23/16 21:00 10.0 Intake and Output 12/23/16 12/23/16 12/24/16 15:00 23:00 07:00 Intake Total 1008 ml 1520 ml 465 ml Output Total 250 ml 235 ml 485 ml Balance 758 ml 1285 ml -20 ml Results Result Diagram: 12/24/16 0430 12/24/16 0430 JUMANA MONTANA M.D. Dec 24, 2016 22:06
[2016-12-25] VITALS (38 sets, daily range): BP systolic 105–158; BP diastolic 56–108; PULSE 65–88; RESP 17–39
[2016-12-25 06:10] LABS: ADD SCAN DIFF NO
[2016-12-25 06:19] LABS: ABNORMAL IP MESSAGE 1; HEMATOCRIT 31.1 % (42.0-52.0); HEMOGLOBIN 10.1 g/dl (14.0-18.0); MEAN CORPUSCULAR HEMOGLOBIN 29.2 pg (29.0-33.0); MEAN CORPUSCULAR HGB CONC 32.5 g/dl (32.0-37.0); MEAN CORPUSCULAR VOLUME 89.9 fl (82.0-101.0); PLATELET COUNT 105 10^3/UL (140-415); RED BLOOD COUNT 3.46 10^6/ul (4.70-6.10); RED CELL DISTRIBUTION WIDTH 17.8 % (11.5-14.5); WHITE BLOOD COUNT 9.3 10^3/ul (4.8-10.8)
[2016-12-25] MEDS: PANTOPRAZOLE (EC) 40 MG TAB PO SCH ×2 (06:31→18:49)
[2016-12-25] MEDS: LEVOTHYROXINE 50 MCG TAB PO SCH (06:31)
[2016-12-25] MEDS: PIPER-TAZO 2.25 GM (PMX) 50 ML IVPB SCH ×3 (06:33→21:11)
[2016-12-25] MEDS: Insulin NOVOLOG SS MODERATE Algorithm(NPO/TPN/ENTERAL FEEDS) SC SCH ×2 (06:39→18:49)
[2016-12-25 06:46] LABS: ALBUMIN 3.1 g/dl (3.3-4.9)
[2016-12-25 06:47] LABS: POTASSIUM 3.5 mmol/L (3.5-5.1)
[2016-12-25 06:49] LABS: ALBUMIN/GLOBULIN RATIO 1.03; BILIRUBIN,INDIRECT 0.4 mg/dl (0-1.1); BILIRUBIN,TOTAL 0.4 mg/dl (0.2-1.3); CREATININE 4.75 mg/dl (0.61-1.24); TOTAL PROTEIN 6.1 g/dl (6.1-8.1)
[2016-12-25] MEDS: CLOPIDOGREL 75 MG TAB PO SCH (08:17)
[2016-12-25] MEDS: AMIODARONE 200 MG TAB PO SCH ×2 (08:19→21:09)
[2016-12-25] MEDS: METOPROLOL (XL) 25 MG TAB PO SCH ×2 (08:20→21:08)
[2016-12-25] MEDS: HEPARIN 5,000 UNIT/0.5 ML VIAL SC SCH ×2 (08:22→21:10)
--- NOTE | 2016-12-25 08:24 | PN ---
Date/Time of Note Date/Time of Note DATE: 12/25/16 TIME: 08:18 Assessment/Plan VTE Prophylaxis VTE Prophylaxis Intervention: other Lines/Catheters IV Catheter Type (from Nrsg): Alfredo Urinary Cath still in place: No Assessment/Plan Assessment/Plan 1. 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 Acute and chronic renal failure, will hd today 3. Acute mi, stable 4. SBO resolved 5. Known myelofibrosis, reviewed lorna, "abrupt withdrawal" can result in dic and severe myelofibrosis->will ask heme to comment 6. Gout, quiescent Subjective 24 Hr Interval Summary Respiratory: cough (that is not productive and sob persits albeit less then yesterday) Cardiovascular: No chest pain Gastrointestinal: No pain Genitourinary: other (robles in place) Musculoskeletal: No back pain Neurologic: No confusion Exam/Review of Systems Vital Signs Vitals Vital Signs Date Time Temp Pulse Resp B/P Pulse Ox O2 Delivery O2 Flow Rate FiO2 12/25/16 06:45 83 158/80 93 12/25/16 05:00 34 12/25/16 04:00 98.5 High Flow 12/25/16 03:03 50 12/23/16 21:00 10.0 Intake and Output 12/24/16 12/24/16 12/25/16 15:00 23:00 07:00 Intake Total 500 ml 100 ml 80 ml Output Total 4115 ml 280 ml 525 ml Balance -3615 ml -180 ml -445 ml Exam Neck: jvd (not present at 90 degrees) Cardiovascular: regular rate and rhythm, No S3, No S4, No rub Gastrointestinal: soft Extremities: No edema (extrem but 1+ sacral edema) Results Result Diagram: 12/25/16 0546 12/25/16 0546 Results 24 hrs Laboratory Tests Test 12/24/16 14:17 12/24/16 16:56 12/24/16 23:29 12/25/16 05:46 Bedside Glucose 195 165 146 White Blood Count 9.3 Red Blood Count 3.46 L Hemoglobin 10.1 L Hematocrit 31.1 L Mean Corpuscular Volume 89.9 Mean Corpuscular Hemoglobin 29.2 Mean Corpuscular Hemoglobin Concent 32.5 Red Cell Distribution Width 17.8 H Platelet Count 105 L Mean Platelet Volume Sodium Level 139 Potassium Level 3.5 Chloride Level 104 Carbon Dioxide Level 18 L Anion Gap 21 H Blood Urea Nitrogen 61 H Creatinine 4.75 H Glucose Level 140 # Calcium Level 7.0 L Phosphorus Level 4.1 Total Bilirubin 0.4 Direct Bilirubin 0.00 Indirect Bilirubin 0.4 Aspartate Amino Transf (AST/SGOT) 50 H Alanine Aminotransferase (ALT/SGPT) 83 H Alkaline Phosphatase 90 Total Protein 6.1 Albumin 3.1 L Globulin 3.00 Albumin/Globulin Ratio 1.03 Test 12/25/16 06:37 12/25/16 08:01 Bedside Glucose 151 148 Medications Medications Current Medications Ondansetron HCl (Zofran Inj) 4 mg Q6H PRN IV NAUSEA AND/OR VOMITING; Start at 16:00 Bisacodyl (Dulcolax Supp) 10 mg DAILY PRN [place] CONSTIPATION; Start 12/16/16 at 16 :00 Heparin Sodium (Porcine) (Heparin (5000 Units/0.5 ml)) 5,000 unit Q12 SC Last administered on 12/24/16 20:35; Admin Dose 5,000 UNIT; Start 12/16/16 at 21:00 Miscellaneous Information 1 ea NOTE XX ; Start 12/16/16 at 18:00 Glucose (Glutose) 15 gm Q15M PRN PO DECREASED GLUCOSE; Start 12/16/16 at 18:00 Glucose (Glutose) 22.5 gm Q15M PRN PO DECREASED GLUCOSE; Start 12/16/16 at 18: 00 Dextrose (D50w Syringe) 25 ml Q15M PRN IV DECREASED GLUCOSE; Start 12/16/16 at 18:00 Dextrose (D50w Syringe) 50 ml Q15M PRN IV DECREASED GLUCOSE; Start 12/16/16 at 18:00 Glucagon (Glucagen) 1 mg Q15M PRN IM DECREASED GLUCOSE; Start 12/16/16 at 18:00 Glucose (Glutose) 15 gm Q15M PRN BUCCAL DECREASED GLUCOSE; Start 12/16/16 at 18 :00 Insulin Aspart (Novolog Insulin Pen) (Adult SC Insulin - Moder... Q6 SC Last administered on 12/25/16 06:39; Admin Dose 2 UNIT; Start 12/17/16 at 00:00 Morphine Sulfate (morphine) 1 mg Q4H PRN IV PAIN LEVEL 1-5; Start 12/20/16 at 11:30 Nitroglycerin (Nitroglycerin (Sl Tab) 0.4 Mg) 1 tab Q5M PRN SL ANGINA Last administered on 12/21/16 01:06; Admin Dose 1 TAB; Start 12/21/16 at 00:30 Clopidogrel Bisulfate (plaVIX) 75 mg DAILY PO Last administered on 12/24/16 08: 46; Admin Dose 75 MG; Start 12/22/16 at 09:00 Ondansetron HCl 4 mg 4 mg Q4H PRN IV NAUSEA AND/OR VOMITING; Start 12/21/16 at 12:00 Piperacillin Sod/ Tazobactam Sod 50 ml @ 100 mls/hr Q8 IVPB Last administered on 12/25/16 06:33; Admin Dose 100 MLS/HR; Start 12/22/16 at 14:00 Norepinephrine/ Dextrose (Levophed/D5W) 500 ml @ 1.87 mls/hr TITRATE IV ; Start 12/22/16 at 17:00 Zolpidem Tartrate (Ambien) 5 mg HS PRN PO INSOMNIA Last administered on 20:32; Admin Dose 5 MG; Start 12/22/16 at 22:00 Atorvastatin Calcium (Lipitor) 40 mg HS PO Last administered on 12/24/16 20:32 ; Admin Dose 40 MG; Start 12/23/16 at 21:00 Metoprolol Succinate (Toprol Xl) 25 mg BID PO Last administered on 12/24/16 20: 33; Admin Dose 25 MG; Start 12/23/16 at 21:00 Amiodarone HCl (Cordarone) 200 mg BID PO Last administered on 12/24/16 20:33; Admin Dose 200 MG; Start 12/24/16 at 09:00 Hydralazine HCl (Apresoline) 10 mg Q6H PRN IV ELEVATED BLOOD PRESSURE; Start at 08:00 Pantoprazole (Protonix Tab) 40 mg BID@06,18 PO Last administered on 12/25/16 06 :31; Admin Dose 40 MG; Start 12/24/16 at 18:00 Levothyroxine Sodium (Synthroid) 50 mcg DAILY@06 PO Last administered on 06:31; Admin Dose 50 MCG; Start 4/4/17 at 06:00 Aspirin (Halfprin) 81 mg DAILY PO ; Start 12/25/16 at 09:00; Status UNV Multivit/Ca Carb/ B Cmplx/FA/Prenat (Nadiya-Ozzie) 1 tab DAILY PO ; Start 12/25/16 at 09:00; Status UNV Acetaminophen (Tylenol Tab) 650 mg Q6H PRN PO PAIN AND OR ELEVATED TEMP; Start 12/25/16 at 08:30; Status UNV JULIANNE ESTRELLA MD Dec 25, 2016 08:24
[2016-12-25] MEDS ORDERED: ACETAMINOPHEN 325 MG TAB PO PRN (08:30)
[2016-12-25] MEDS: LEVALBUTEROL (NEB) 0.31 MG/3 ML AMP HHN SCH ×4 (08:30→19:45)
--- NOTE | 2016-12-25 08:31 | CONS ---
Date/Time of Note Date/Time of Note DATE: 12/25/16 TIME: 08:29 Assessment/Plan Assessment/Plan Additional Assessment/Plan Assessment recommendations; next 1. Patient admitted for cardiac arrest/respiratory failure no successfully extubated with excellent overall clinical status. 2. Acute renal failure, requiring hemodialysis. 3. History of cardiac arrhythmia. 4. History of diabetes, hypertension, hypothyroidism. 5. Possibly some element of aspiration pneumonia. Continue current treatment. Patient responding well to the current treatment regimen. Consultation Date/Type/Reason Admit Date/Time Dec 16, 2016 at 17:40 Initial Consult Date 12/21/16 Type of Consultation: Pulmonary/critical care Referring Provider: JULIANNE ESTRELLA MD 24 HR Interval Summary Free Text/Dictation Patient condition is stable. Sitting in a chair by bedside. Complains of very minimal shortness of breath. Denies any chest pain, wheezing, cough or sputum production. Any fever or chills. General exam; elderly male, awake alert currently in no distress. Exam/Review of Systems Vital Signs Vitals Vital Signs Date Time Temp Pulse Resp B/P Pulse Ox O2 Delivery O2 Flow Rate FiO2 12/25/16 06:45 83 158/80 93 12/25/16 05:00 34 12/25/16 04:00 98.5 High Flow 12/25/16 03:03 50 12/23/16 21:00 10.0 Intake and Output 12/24/16 12/24/16 12/25/16 15:00 23:00 07:00 Intake Total 500 ml 100 ml 80 ml Output Total 4115 ml 280 ml 525 ml Balance -3615 ml -180 ml -445 ml Exam HEENT exam is; supple neck, no JVD. No lymphadenopathy. Midline trachea. No thyromegaly. Bilateral intraocular lens implants. Dentition is fair. No neck masses. Chest examination; diminished breath on lung bases bilaterally. Upper lobes are clear to auscultation. S1-S2 audible, no murmurs. Regular rhythm. There is a well-healed sternal scar. Abdomen examination; soft, nontender, no organomegaly. Bowel is audible. Extremity exam is; no peripheral edema. Pulses 1+ bilaterally. WINE BLENDER examination; no focal deficit. Results Result Diagram: 12/25/16 0546 12/25/16 0546 Results 24 hrs Laboratory Tests Test 12/24/16 14:17 12/24/16 16:56 12/24/16 23:29 12/25/16 05:46 Bedside Glucose 195 165 146 White Blood Count 9.3 Red Blood Count 3.46 L Hemoglobin 10.1 L Hematocrit 31.1 L Mean Corpuscular Volume 89.9 Mean Corpuscular Hemoglobin 29.2 Mean Corpuscular Hemoglobin Concent 32.5 Red Cell Distribution Width 17.8 H Platelet Count 105 L Mean Platelet Volume Sodium Level 139 Potassium Level 3.5 Chloride Level 104 Carbon Dioxide Level 18 L Anion Gap 21 H Blood Urea Nitrogen 61 H Creatinine 4.75 H Glucose Level 140 # Calcium Level 7.0 L Phosphorus Level 4.1 Total Bilirubin 0.4 Direct Bilirubin 0.00 Indirect Bilirubin 0.4 Aspartate Amino Transf (AST/SGOT) 50 H Alanine Aminotransferase (ALT/SGPT) 83 H Alkaline Phosphatase 90 Total Protein 6.1 Albumin 3.1 L Globulin 3.00 Albumin/Globulin Ratio 1.03 Test 12/25/16 06:37 12/25/16 08:01 Bedside Glucose 151 148 Medications Medications Current Medications Ondansetron HCl (Zofran Inj) 4 mg Q6H PRN IV NAUSEA AND/OR VOMITING; Start at 16:00 Bisacodyl (Dulcolax Supp) 10 mg DAILY PRN [place] CONSTIPATION; Start 12/16/16 at 16 :00 Heparin Sodium (Porcine) (Heparin (5000 Units/0.5 ml)) 5,000 unit Q12 SC Last administered on 12/25/16t 08:22; Admin Dose 5,000 UNIT; Start 12/16/16 at 21:00 Miscellaneous Information 1 ea NOTE XX ; Start 12/16/16 at 18:00 Glucose (Glutose) 15 gm Q15M PRN PO DECREASED GLUCOSE; Start 12/16/16 at 18:00 Glucose (Glutose) 22.5 gm Q15M PRN PO DECREASED GLUCOSE; Start 12/16/16 at 18: 00 Dextrose (D50w Syringe) 25 ml Q15M PRN IV DECREASED GLUCOSE; Start 12/16/16 at 18:00 Dextrose (D50w Syringe) 50 ml Q15M PRN IV DECREASED GLUCOSE; Start 12/16/16 at 18:00 Glucagon (Glucagen) 1 mg Q15M PRN IM DECREASED GLUCOSE; Start 12/16/16 at 18:00 Glucose (Glutose) 15 gm Q15M PRN BUCCAL DECREASED GLUCOSE; Start 12/16/16 at 18 :00 Insulin Aspart (Novolog Insulin Pen) (Adult SC Insulin - Moder... Q6 SC Last administered on 12/25/16 06:39; Admin Dose 2 UNIT; Start 12/17/16 at 00:00 Morphine Sulfate (morphine) 1 mg Q4H PRN IV PAIN LEVEL 1-5; Start 12/20/16 at 11:30 Nitroglycerin (Nitroglycerin (Sl Tab) 0.4 Mg) 1 tab Q5M PRN SL ANGINA Last administered on 12/21/16 01:06; Admin Dose 1 TAB; Start 12/21/16 at 00:30 Clopidogrel Bisulfate (plaVIX) 75 mg DAILY PO Last administered on 12/25/16 08: 17; Admin Dose 75 MG; Start 12/22/16 at 09:00 Ondansetron HCl 4 mg 4 mg Q4H PRN IV NAUSEA AND/OR VOMITING; Start 12/21/16 at 12:00 Piperacillin Sod/ Tazobactam Sod 50 ml @ 100 mls/hr Q8 IVPB Last administered on 12/25/16 06:33; Admin Dose 100 MLS/HR; Start 12/22/16 at 14:00 Norepinephrine/ Dextrose (Levophed/D5W) 500 ml @ 1.87 mls/hr TITRATE IV ; Start 12/22/16 at 17:00 Zolpidem Tartrate (Ambien) 5 mg HS PRN PO INSOMNIA Last administered on 20:32; Admin Dose 5 MG; Start 12/22/16 at 22:00 Atorvastatin Calcium (Lipitor) 40 mg HS PO Last administered on 12/24/16 20:32 ; Admin Dose 40 MG; Start 12/23/16 at 21:00 Metoprolol Succinate (Toprol Xl) 25 mg BID PO Last administered on 12/25/16 08: 20; Admin Dose 25 MG; Start 12/23/16 at 21:00 Amiodarone HCl (Cordarone) 200 mg BID PO Last administered on 12/25/16 08:19; Admin Dose 200 MG; Start 12/24/16 at 09:00 Hydralazine HCl (Apresoline) 10 mg Q6H PRN IV ELEVATED BLOOD PRESSURE; Start at 08:00 Pantoprazole (Protonix Tab) 40 mg BID@06,18 PO Last administered on 12/25/16 06 :31; Admin Dose 40 MG; Start 12/24/16 at 18:00 Levothyroxine Sodium (Synthroid) 50 mcg DAILY@06 PO Last administered on 06:31; Admin Dose 50 MCG; Start 12/25/16 at 06:00 Aspirin (Halfprin) 81 mg DAILY PO ; Start 12/25/16 at 09:00 Multivit/Ca Carb/ B Cmplx/FA/Prenat (Nadiya-Ozzie) 1 tab DAILY PO ; Start 12/25/16 at 09:00 Acetaminophen (Tylenol Tab) 650 mg Q6H PRN PO PAIN AND OR ELEVATED TEMP; Start 12/25/16 at 08:30 Docusate Sodium (Colace) 200 mg DAILY PO ; Start 12/25/16 at 09:00 JUAN FIGUEREDO Dec 25, 2016 08:31
[2016-12-25 08:32] LABS: AADO2 Arterial 227.9 mmHg (7.0-24.0); Allen Test ACCEPTAB; Arterial Base Excess -5.9 mmol/L (-3.0-3); Arterial COHb 0.2 % (0.0-3.0); Arterial Fraction of Oxyhgb 96.5 % (93.0-99.0); Arterial HCO3 17.5 mmol/L (22.0-26.0); Arterial MetHb 0.3 % (0.0-1.5); Arterial Total Hemglobin 11.1 g/dl (12.0-18.0); MODE HFNC
--- NOTE | 2016-12-25 08:52 | RADRPT ---
PROCEDURE: XR Chest. CLINICAL INDICATION: Shortness of breath TECHNIQUE: An AP view of the chest was obtained. COMPARISON: Chest x-ray dated 12/24/2016 FINDINGS: Lung volumes are low. There is prominence of the interstitial and central pulmonary vascular jose alberto ngs. There are small bilateral pleural effusions. No focal airspace opacification or pneumothorax i s seen. The cardiomediastinal silhouette is mildly enlarged . Calcifications are seen within the a ortic arch. There are post cardiac surgery changes with sternotomy wires and mediastinal clips. The osseous structures demonstrate senescent changes. IMPRESSION: 1. Findings suggestive of pulmonary vascular congestion with small bilateral pleural effusions. Emily ng aeration is improved when compared to the prior examination. 2. Mild cardiomegaly and aortic atherosclerosis. RPTAT: HH .Amber Marshall MD, MD Date Time Electronically viewed and signed by .Amber Marshall MD, on 12/25/2016 08:52 .G/
[2016-12-25] MEDS: ASPIRIN (EC) 81 MG TAB PO SCH (09:00)
[2016-12-25] MEDS: DOCUSATE SODIUM 100 MG CAP PO SCH (09:00)
[2016-12-25] MEDS: MULTIVIT/CA CARB/B CMPLX/FA TAB PO SCH (09:00)
--- NOTE | 2016-12-25 09:32 | CONS ---
Date/Time of Note Date/Time of Note DATE: 12/25/16 TIME: 09:28 Assessment/Plan Assessment/Plan Chief Complaint/Hosp Course Impression: - hypovolemic shock- resolved - NSTEMI - A/CKD- likely from shock + possible contrast nephropathy. nephrology initiating dialysis - Acute on chronic systolic heart failure- 2/2 nstemi, fluid resuscitation. fluid mgmt with dialysis given a/ckd - Multi vessel coronary artery disease - mid [id number] severe stenosis, likely related to compression from surgical clips - SBO now resolved - Respiratory failure- extubated, but with cont congestion requiring o2 - VT/VF event - on amiodarone, no recurrence Recommendations: - cont asa 81mg daily and plavix 75 mg daily given NSTEMI - cont fluid removal with iHD - Maintain K>4, Mg>2 - Continue on amiodarone PO, can switch to daily dosing after 1 week - cont metoprolol, electrically stable, given lower bp during iHD will hold off titration for now - if renal function improves will consider ACEi/ARB or consider isordil/ hydralazine combo for CHF - will consider ICD placement after stabilization of resp status/dialysis status. Problems: Consultation Date/Type/Reason Admit Date/Time Dec 16, 2016 at 17:40 Initial Consult Date 12/21/16 Type of Consultation: Cardiology Referring Provider: JULIANNE ESTRELLA MD 24 HR Interval Summary Free Text/Dictation patient s/p iHD yesterday, had lower pressures on initiation. otherwise tolerated well, states he had some fatigue after. no cp. cont sob, on high flow o2. tele reviewed, nsr Detailed Summary ENT: no complaints Respiratory: shortness of breath Cardiovascular: no complaints Gastrointestinal: no complaints Exam/Review of Systems Vital Signs Vitals Vital Signs Date Time Temp Pulse Resp B/P Pulse Ox O2 Delivery O2 Flow Rate FiO2 12/25/16 08:00 86 12/25/16 06:45 158/80 93 12/25/16 05:00 34 12/25/16 04:00 98.5 High Flow 12/25/16 03:03 50 12/23/16 21:00 10.0 Intake and Output 12/24/16 12/24/16 12/25/16 15:00 23:00 07:00 Intake Total 500 ml 100 ml 80 ml Output Total 4115 ml 280 ml 525 ml Balance -3615 ml -180 ml -445 ml Exam Constitutional: alert, oriented, well developed Psych: nl mood/affect Head: atraumatic, normocephalic Eyes: nl conjunctiva Neck: jvd (10), non-tender, supple Respiratory: congested cough, crackles/rales, diminished breath sounds Cardiovascular: nl pulses, regular rate and rhythm Gastrointestinal: nl liver, spleen 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: PHYS THER II-XII intact Results Result Diagram: 12/25/16 0546 12/25/16 0546 Results 24 hrs Laboratory Tests Test 12/24/16 14:17 12/24/16 16:56 12/24/16 23:29 12/25/16 05:46 Bedside Glucose 195 165 146 White Blood Count 9.3 Red Blood Count 3.46 L Hemoglobin 10.1 L Hematocrit 31.1 L Mean Corpuscular Volume 89.9 Mean Corpuscular Hemoglobin 29.2 Mean Corpuscular Hemoglobin Concent 32.5 Red Cell Distribution Width 17.8 H Platelet Count 105 L Mean Platelet Volume Sodium Level 139 Potassium Level 3.5 Chloride Level 104 Carbon Dioxide Level 18 L Anion Gap 21 H Blood Urea Nitrogen 61 H Creatinine 4.75 H Glucose Level 140 # Calcium Level 7.0 L Phosphorus Level 4.1 Total Bilirubin 0.4 Direct Bilirubin 0.00 Indirect Bilirubin 0.4 Aspartate Amino Transf (AST/SGOT) 50 H Alanine Aminotransferase (ALT/SGPT) 83 H Alkaline Phosphatase 90 Total Protein 6.1 Albumin 3.1 L Globulin 3.00 Albumin/Globulin Ratio 1.03 Test 12/25/16 06:37 12/25/16 07:33 12/25/16 08:01 Bedside Glucose 151 148 Blood Gas Specimen Source Blood arterial Arterial Blood Date Drawn 12/25/2016 8:18:20 AM Arterial Blood pH (Temp corrected) 7.414 Arterial Blood pCO2 (Temp correct) 28.0 L Arterial Blood pO2 (Temp corrected) 97.1 H Arterial Blood HCO3 17.5 L Arterial Blood Base Excess -5.9 L Arterial Blood Oxygen Saturation 97.0 Oniel Test ACCEPTAB Arterial Blood Gas Puncture Site Left Radial Arterial Blood Carboxyhemoglobin 0.2 Arterial Blood Methemoglobin 0.3 Blood Gas A-a O2 Differential 227.9 H Oxyhemoglobin Percent 96.5 Total Hemoglobin 11.1 L Blood Gas Temperature 37.0 Blood Gas Modality HFNC FiO2 50.0 Blood Gas Notified Whom TRACIE Blood Gas Notified Time 12/25/2016 8:32:10 AM Medications Medications Current Medications Ondansetron HCl (Zofran Inj) 4 mg Q6H PRN IV NAUSEA AND/OR VOMITING; Start at 16:00 Bisacodyl (Dulcolax Supp) 10 mg DAILY PRN [place] CONSTIPATION; Start 12/16/16 at 16 :00 Heparin Sodium (Porcine) (Heparin (5000 Units/0.5 ml)) 5,000 unit Q12 SC Last administered on 12/25/16 08:22; Admin Dose 5,000 UNIT; Start 12/16/16 at 21:00 Miscellaneous Information 1 ea NOTE XX ; Start 12/16/16 at 18:00 Glucose (Glutose) 15 gm Q15M PRN PO DECREASED GLUCOSE; Start 12/16/16 at 18:00 Glucose (Glutose) 22.5 gm Q15M PRN PO DECREASED GLUCOSE; Start 12/16/16 at 18: 00 Dextrose (D50w Syringe) 25 ml Q15M PRN IV DECREASED GLUCOSE; Start 12/16/16 at 18:00 Dextrose (D50w Syringe) 50 ml Q15M PRN IV DECREASED GLUCOSE; Start 12/16/16 at 18:00 Glucagon (Glucagen) 1 mg Q15M PRN IM DECREASED GLUCOSE; Start 12/16/16 at 18:00 Glucose (Glutose) 15 gm Q15M PRN BUCCAL DECREASED GLUCOSE; Start 12/16/16 at 18 :00 Insulin Aspart (Novolog Insulin Pen) (Adult SC Insulin - Moder... Q6 SC Last administered on 12/25/16 06:39; Admin Dose 2 UNIT; Start 12/17/16 at 00:00 Morphine Sulfate (morphine) 1 mg Q4H PRN IV PAIN LEVEL 1-5; Start 12/20/16 at 11:30 Nitroglycerin (Nitroglycerin (Sl Tab) 0.4 Mg) 1 tab Q5M PRN SL ANGINA Last administered on 12/21/16 01:06; Admin Dose 1 TAB; Start 12/21/16 at 00:30 Clopidogrel Bisulfate (plaVIX) 75 mg DAILY PO Last administered on 12/25/16 08: 17; Admin Dose 75 MG; Start 12/22/16 at 09:00 Ondansetron HCl 4 mg 4 mg Q4H PRN IV NAUSEA AND/OR VOMITING; Start 12/21/16 at 12:00 Piperacillin Sod/ Tazobactam Sod 50 ml @ 100 mls/hr Q8 IVPB Last administered on 12/25/16 06:33; Admin Dose 100 MLS/HR; Start 12/22/16 at 14:00 Norepinephrine/ Dextrose (Levophed/D5W) 500 ml @ 1.87 mls/hr TITRATE IV ; Start 12/22/16 at 17:00 Zolpidem Tartrate (Ambien) 5 mg HS PRN PO INSOMNIA Last administered on 20:32; Admin Dose 5 MG; Start 12/22/16 at 22:00 Atorvastatin Calcium (Lipitor) 40 mg HS PO Last administered on 12/24/16 20:32 ; Admin Dose 40 MG; Start 12/23/16 at 21:00 Metoprolol Succinate (Toprol Xl) 25 mg BID PO Last administered on 12/25/16 08: 20; Admin Dose 25 MG; Start 12/23/16 at 21:00 Amiodarone HCl (Cordarone) 200 mg BID PO Last administered on 12/25/16 08:19; Admin Dose 200 MG; Start 12/24/16 at 09:00 Hydralazine HCl (Apresoline) 10 mg Q6H PRN IV ELEVATED BLOOD PRESSURE; Start at 08:00 Pantoprazole (Protonix Tab) 40 mg BID@06,18 PO Last administered on 12/25/16 06 :31; Admin Dose 40 MG; Start 12/24/16 at 18:00 Levothyroxine Sodium (Synthroid) 50 mcg DAILY@06 PO Last administered on 06:31; Admin Dose 50 MCG; Start 12/25/16 at 06:00 Aspirin (Halfprin) 81 mg DAILY PO ; Start 12/25/16 at 09:00 Multivit/Ca Carb/ B Cmplx/FA/Prenat (Nadiya-Ozzie) 1 tab DAILY PO ; Start 12/25/16 at 09:00 Acetaminophen (Tylenol Tab) 650 mg Q6H PRN PO PAIN AND OR ELEVATED TEMP; Start 12/25/16 at 08:30 Docusate Sodium (Colace) 200 mg DAILY PO ; Start 12/25/16 at 09:00 Procedures Procedures cxr images reviewed: improving pulm edema SAMY ROSALES Dec 25, 2016 09:32
--- NOTE | 2016-12-25 10:33 | PN ---
Date/Time of Note Date/Time of Note DATE: 12/25/16 TIME: 08:11 Assessment/Plan Lines/Catheters IV Catheter Type (from Nrsg): Alfredo Marcum in Place (from Nrsg): Yes Assessment/Plan Assessment/Plan [facility] Progress Note Date of Service: 12/25/16 Today's Impression & Plan: Overall stable. Remains extubated and abd continues to be benign. + bowel function and tolerating regular diet. No indication for acute surgical intervention for his abdomen. Prognosis is improved. Renal function deterioration being addressed. With above assessment, I've recommended the following for today: 1. Continue to regular as tolerated 2. Increase activity 3. Cont medical cares Thank you again for your great care of this very pleasant patient and wonderful family. If there are any questions, please feel free to call me at [phone]. TOTAL VISIT TIME: 20 minutes of which more than half was spent in [id number] discussion with the patient, possibly including family, as well as coordination of care between multiple physicians and providers. Disclaimer: Inadvertent spelling or grammatical errors are likely due to EHR/ dictation software use and do not reflect on the overall quality of patient care. Updated Clinical Summary: The patient is a very pleasant 81-year-old gentleman with comorbidities including BMI 25.6 and prior appendectomy as well as coronary artery disease status post bypass grafting, presenting to [facility] through the emergency department with abdominal pain, nausea, and vomiting. Cardiac event (? arrhythmia with rise in troponin) morning hours on 12/21/16 requiring intubation and transfer to ICU. Extubated 12/22/16. Renal function deteriorated through 12/24/16. COMORBIDITIES: 1. BMI 25.6. 2. Status post coronary artery bypass graft surgery. 3. Status post appendectomy. 4. Hypertension. 5. Hypothyroidism. 6. Dyslipidemia. 7. Myelofibrosis. 8. Colon polyps. 9. Diverticulosis. 10. Diabetes. 11. Cardiac event am 12/21/16 requiring intubation and transfer to ICU at [facility]; extubated 12/22/16 Subjective: No major events or complaints overnight. Feels ok. No abd pain. No nausea or vomiting. + bowel activity. - activity. + bloody nose but controlled. Objective: Vitals: See below Exam: GENERAL: On exam, the patient was laying in bed and appeared to be comfortable and in no acute distress. Nose packed. ABDOMEN: Soft, nontender and nondistended. There are no peritoneal signs or guarding. SKIN: Skin appears to be pink and feels warm to touch. NEUROLOGIC: Awake, alert and follows commands appropriately. Exam/Review of Systems Vital Signs Vitals Vital Signs Date Time Temp Pulse Resp B/P Pulse Ox O2 Delivery O2 Flow Rate FiO2 12/25/16 06:45 83 158/80 93 12/25/16 05:00 34 12/25/16 04:00 98.5 High Flow 12/25/16 03:03 50 12/23/16 21:00 10.0 Intake and Output 12/24/16 12/24/16 12/25/16 15:00 23:00 07:00 Intake Total 500 ml 100 ml 80 ml Output Total 4115 ml 280 ml 525 ml Balance -3615 ml -180 ml -445 ml Results Result Diagram: 12/25/16 0546 12/25/16 0546 JUMANA MONTANA M.D. Dec 25, 2016 10:33
[2016-12-25 11:05] LABS: EOSINOPHILS # 0.1 10^3/ul (0.0-0.5); LYMPHOCYTES # 0.7 10^3/ul (0.8-2.9); MONOCYTE # 1.1 10^3/ul (0.3-0.9); MYELOCYTES # 0.3; NEUTROPHIL # 6.5 10^3/ul (1.6-7.5)
[2016-12-25] MEDS: IPRATROPIUM (NEB) 0.5 MG/2.5 ML AMP HHN SCH ×4 (14:00→19:45)
[2016-12-25 19:07] LABS: ADD UMIC YES; URINE BILIRUBIN (Dip) 1+ (NEGATIVE); URINE BLOOD (Dip) 3+ (NEGATIVE); URINE COLOR LT. YELLOW (YELLOW); URINE GLUCOSE (Dip) NEGATIVE (NEGATIVE); URINE KETONES (Dip) NEGATIVE (NEGATIVE); URINE LEUKOCYTE ESTERASE (Dip) 1+ (NEGATIVE); URINE NITRITE (Dip) NEGATIVE (NEGATIVE); URINE TOTAL PROTEIN (Dip) 2+ (NEGATIVE); URINE UROBILINOGEN (Dip) 0.2 E.U./dL (0.1-1.0)
[2016-12-25 19:20] LABS: BACTERIA,URINE MANY; SQUAMOUS EPITHELIAL CELL,UR RARE; URINE RBCS >50 /HPF (0)
[2016-12-25 19:42] LABS: ICTOTEST NEGATIVE (NEGATIVE)
[2016-12-25] MEDS: ATORVASTATIN 40 MG TAB PO SCH (21:08)
[2016-12-26] VITALS (23 sets, daily range): BP systolic 109–160; BP diastolic 53–87; PULSE 69–97; RESP 16–33
[2016-12-26] MEDS: Insulin NOVOLOG SS MODERATE Algorithm(NPO/TPN/ENTERAL FEEDS) SC SCH ×4 (00:50→17:38)
[2016-12-26] MEDS: LEVALBUTEROL (NEB) 0.31 MG/3 ML AMP HHN SCH ×4 (01:30→19:52)
[2016-12-26] MEDS: PANTOPRAZOLE (EC) 40 MG TAB PO SCH ×2 (05:29→09:04)
[2016-12-26] MEDS: LEVOTHYROXINE 50 MCG TAB PO SCH (05:29)
[2016-12-26 05:42] LABS: ADD SCAN DIFF NO
[2016-12-26 05:47] LABS: ABNORMAL IP MESSAGE 1; BASOPHILS % 0.3 % (0.0-2.0); EOSINOPHILS # 0.2 10^3/ul (0.0-0.5); HEMOGLOBIN 10.4 g/dl (14.0-18.0); LYMPHOCYTES # 0.6 10^3/ul (0.8-2.9); LYMPHOCYTES % 6.4 % (15.0-51.0); MEAN CORPUSCULAR HEMOGLOBIN 28.5 pg (29.0-33.0); MEAN CORPUSCULAR HGB CONC 31.5 g/dl (32.0-37.0); MEAN CORPUSCULAR VOLUME 90.4 fl (82.0-101.0); MONOCYTES % 10.6 % (0.0-11.0); NEUTROPHIL # 6.5 10^3/ul (1.6-7.5); NEUTROPHILS % 71.6 % (39.0-77.0); NUCLEATED RED BLOOD CELLS # 0.1 10^3/ul (0.0-0.0); NUCLEATED RED BLOOD CELLS% 0.7 /100WBC (0.0-0.0); PLATELET COUNT 125 10^3/UL (140-415); RED BLOOD COUNT 3.65 10^6/ul (4.70-6.10); WHITE BLOOD COUNT 9.1 10^3/ul (4.8-10.8)
[2016-12-26] MEDS: PIPER-TAZO 2.25 GM (PMX) 50 ML IVPB SCH (05:54)
[2016-12-26 06:09] LABS: POTASSIUM 3.5 mmol/L (3.5-5.1)
[2016-12-26 06:11] LABS: CREATININE 4.2 mg/dl (0.61-1.24)
[2016-12-26 06:12] LABS: CALCIUM 7.1 mg/dl (8.4-10.2); PHOSPHORUS 4.3 mg/dl (2.5-4.9)
--- NOTE | 2016-12-26 08:17 | PN ---
Date/Time of Note Date/Time of Note DATE: 12/26/16 TIME: 08:13 Assessment/Plan VTE Prophylaxis VTE Prophylaxis Intervention: other Lines/Catheters IV Catheter Type (from Nrs): CRYSTAL Urinary Cath still in place: No Assessment/Plan Assessment/Plan 1. CHF resolving, post mi, Beta tushar inc 2. Bronchtitis vs pneumonia, abx continued, ID saw or will see 3. Anemia stable, heme to see, Jakafi resumed for underlying myelofibrosis 4. DM control not optimal, Lantus added 5. SBO resolved 6. Acute renal failure, no HD needed today Subjective 24 Hr Interval Summary Respiratory: cough (moderate not productive), shortness of breath Cardiovascular: No chest pain Gastrointestinal: no complaints Genitourinary: no complaints Exam/Review of Systems Vital Signs Vitals Vital Signs Date Time Temp Pulse Resp B/P Pulse Ox O2 Delivery O2 Flow Rate FiO2 12/26/16 07:00 73 140/66 12/26/16 06:00 16 97 Nasal Cannula 3.0 12/26/16 04:00 98.5 12/25/16 14:30 50 Intake and Output 12/25/16 12/25/16 12/26/16 15:00 23:00 07:00 Intake Total 1100 ml 470 ml 530 ml Output Total 4790 ml 110 ml 100 ml Balance -3690 ml 360 ml 430 ml Exam Neck: jvd (+hjr (less then yesterday)) Respiratory: diminished breath sounds (rhonchi bilat and reduced bs bilat) Cardiovascular: regular rate and rhythm Gastrointestinal: soft Extremities: No edema (and no calf tend) Results Result Diagram: 12/26/16 0525 12/26/16 0525 Results 24 hrs Laboratory Tests Test 12/25/16 17:44 12/25/16 18:00 12/26/16 00:46 12/26/16 05:25 Bedside Glucose 248 H 224 H Urine Color LT. YELLOW Urine Clarity SLIGHTLY CLOUDY Urine pH 5.0 Urine Specific [place] 1.020 Urine Ketones NEGATIVE Urine Nitrite NEGATIVE Urine Bilirubin 1+ H Urine Ictotest NEGATIVE Urine Urobilinogen 0.2 E.U./dL Urine Leukocyte Esterase 1+ H Urine Microscopic RBC >50 Urine Microscopic WBC 2-5 Urine Squamous Epithelial Cells RARE Urine Bacteria MANY Urine Hemoglobin 3+ H Urine Glucose NEGATIVE Urine Total Protein 2+ H White Blood Count 9.1 Red Blood Count 3.65 L Hemoglobin 10.4 L Hematocrit 33.0 L Mean Corpuscular Volume 90.4 Mean Corpuscular Hemoglobin 28.5 L Mean Corpuscular Hemoglobin Concent 31.5 L Red Cell Distribution Width 18.0 H Platelet Count 125 L Mean Platelet Volume Neutrophils % 71.6 Lymphocytes % 6.4 L Monocytes % 10.6 Eosinophils % 2.0 Basophils % 0.3 Nucleated Red Blood Cells % 0.7 H Neutrophils # 6.5 Lymphocytes # 0.6 L Monocytes # 1.0 H Eosinophils # 0.2 Basophils # 0.0 Nucleated Red Blood Cells # 0.1 H Sodium Level 134 L Potassium Level 3.5 Chloride Level 104 Carbon Dioxide Level 22 Anion Gap 12 # Blood Urea Nitrogen 52 H Creatinine 4.20 H Glucose Level 184 Calcium Level 7.1 L Phosphorus Level 4.3 Thyroid Stimulating Hormone (TSH) 6.700 H Test 12/26/16 05:28 Bedside Glucose 187 Medications Medications Current Medications Ondansetron HCl (Zofran Inj) 4 mg Q6H PRN IV NAUSEA AND/OR VOMITING; Start at 16:00 Bisacodyl (Dulcolax Supp) 10 mg DAILY PRN [place] CONSTIPATION; Start 12/16/16 at 16 :00 Heparin Sodium (Porcine) (Heparin (5000 Units/0.5 ml)) 5,000 unit Q12 SC Last administered on 12/25/16t 21:10; Admin Dose 5,000 UNIT; Start 12/16/16 at 21:00 Miscellaneous Information 1 ea NOTE XX ; Start 12/16/16 at 18:00 Glucose (Glutose) 15 gm Q15M PRN PO DECREASED GLUCOSE; Start 12/16/16 at 18:00 Glucose (Glutose) 22.5 gm Q15M PRN PO DECREASED GLUCOSE; Start 12/16/16 at 18: 00 Dextrose (D50w Syringe) 25 ml Q15M PRN IV DECREASED GLUCOSE; Start 12/16/16 at 18:00 Dextrose (D50w Syringe) 50 ml Q15M PRN IV DECREASED GLUCOSE; Start 12/16/16 at 18:00 Glucagon (Glucagen) 1 mg Q15M PRN IM DECREASED GLUCOSE; Start 12/16/16 at 18:00 Glucose (Glutose) 15 gm Q15M PRN BUCCAL DECREASED GLUCOSE; Start 12/16/16 at 18 :00 Insulin Aspart (Novolog Insulin Pen) (Adult SC Insulin - Moder... Q6 SC Last administered on 12/26/16 05:52; Admin Dose 4 UNIT; Start 12/17/16 at 00:00 Morphine Sulfate (morphine) 1 mg Q4H PRN IV PAIN LEVEL 1-5; Start 12/20/16 at 11:30 Nitroglycerin (Nitroglycerin (Sl Tab) 0.4 Mg) 1 tab Q5M PRN SL ANGINA Last administered on 12/21/16 01:06; Admin Dose 1 TAB; Start 12/21/16 at 00:30 Clopidogrel Bisulfate (plaVIX) 75 mg DAILY PO Last administered on 12/25/16 08: 17; Admin Dose 75 MG; Start 12/22/16 at 09:00 Ondansetron HCl 4 mg 4 mg Q4H PRN IV NAUSEA AND/OR VOMITING; Start 12/21/16 at 12:00 Piperacillin Sod/ Tazobactam Sod (Zosyn 2.25gm/ 50ml (Pmx)) 50 ml @ 100 mls/hr Q8 IVPB Last administered on 12/26/16 05:54; Admin Dose 100 MLS/HR; Start at 14:00 Zolpidem Tartrate (Ambien) 5 mg HS PRN PO INSOMNIA Last administered on 20:32; Admin Dose 5 MG; Start 12/22/16 at 22:00 Atorvastatin Calcium (Lipitor) 40 mg HS PO Last administered on 12/25/16 21:08 ; Admin Dose 40 MG; Start 12/23/16 at 21:00 Amiodarone HCl (Cordarone) 200 mg BID PO Last administered on 12/25/16 21:09; Admin Dose 200 MG; Start 12/24/16 at 09:00 Hydralazine HCl (Apresoline) 10 mg Q6H PRN IV ELEVATED BLOOD PRESSURE; Start at 08:00 Aspirin (Halfprin) 81 mg DAILY PO Last administered on 12/25/16 09:00; Admin Dose 81 MG; Start 12/25/16 at 09:00 Multivit/Ca Carb/ B Cmplx/FA/Prenat (Nadiya-Ozzie) 1 tab DAILY PO Last administered on 12/25/16 09:00; Admin Dose 1 TAB; Start 12/25/16 at 09:00 Acetaminophen (Tylenol Tab) 650 mg Q6H PRN PO PAIN AND OR ELEVATED TEMP; Start 12/25/16 at 08:30 Docusate Sodium (Colace) 200 mg DAILY PO Last administered on 12/25/16 09:00; Admin Dose 200 MG; Start 12/25/16 at 09:00 Levothyroxine Sodium (Synthroid) 75 mcg DAILY@06 PO ; Start 12/27/16 at 06:00 Metoprolol Succinate (Toprol Xl) 50 mg BID PO ; Start 12/26/16 at 09:00; Status UNV Pantoprazole (Protonix Tab) 40 mg AM PO ; Start 12/26/16 at 09:00; Status UNV Patient Own Medication 1 ea BID PO ; Start 12/26/16 at 09:00; Status UNV JULIANNE ESTRELLA MD Dec 26, 2016 08:17
--- NOTE | 2016-12-26 08:26 | CONS ---
Date/Time of Note Date/Time of Note DATE: 12/26/16 TIME: 08:15 Assessment/Plan Assessment/Plan Chief Complaint/Hosp Course 1) s/p PR with severe cardiac disease currently asymptomatic 2) CRI with progression and requiring HD will check u/a and urine cx to verify no UTI 3) CHF secondary to poor cardiac function no elevation of WBC, no fever doubt pt has pneumonia will likely d/c zosyn soon procalcitonin not helpful in light of his renal status 4) Myelofibrosis Problems: Consultation Date/Type/Reason Admit Date/Time Dec 16, 2016 at 17:40 Date of Consultation: Dec 25, 2016 Type of Consultation: ID Hx of Present Illness 81yo WM admitted on 12/16 due to one day of abd pain, N, V without F, C. He was thought to possible have diverticulitis and possibly choleycystitis He had a normal HIDA scan and his abd pain quickly improved, He was on zosyn from 12/16 to 12/18. On 12/21 he had a cardiac event with Non ST elevation PR. He got cardiac cath but they were unable to place any stents and subsequently he had to be intubated and developed fluid overload and received HD as his CRI progressed. He received dialysis catheter and has been receiving dialysis ID consult is called to see if there is an active infection present He denies N, V, D He has a cough but not SOB. No rashes, joint pains, TOVAR, sore throat, dysphagia He has a urine robles in. Constitutional: improved ENT: no complaints Respiratory: shortness of breath Cardiovascular: no complaints Gastrointestinal: no complaints Genitourinary: other (robles in place) Musculoskeletal: No back pain Neurologic: No confusion Psychological: nl mood/affect Past Medical History myelofibrosis, CRI, CAD, THN, gout, hyperlipidemia Past Surgical History CABG Social History Alcohol Use: none Smoking Status: Former smoker Drug Use: none Exam/Review of Systems Vital Signs Vitals Vital Signs Date Time Temp Pulse Resp B/P Pulse Ox O2 Delivery O2 Flow Rate FiO2 12/26/16 07:00 73 140/66 12/26/16 06:00 16 97 Nasal Cannula 3.0 12/26/16 04:00 98.5 12/25/16 14:30 50 Intake and Output 12/25/16 12/25/16 12/26/16 15:00 23:00 07:00 Intake Total 1100 ml 470 ml 530 ml Output Total 4790 ml 110 ml 100 ml Balance -3690 ml 360 ml 430 ml Exam Constitutional: alert, oriented Psych: no complaints Head: normocephalic Eyes: nl conjunctiva, nl sclera ENMT: mucosa pink and moist Neck: supple Respiratory: other (bibasilar crackles and decreased BS) Cardiovascular: regular rate and rhythm Gastrointestinal: non-tender, soft Extremities: other (trace edema to LE) 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: nl mental status, nl speech (non focal) Results Result Diagram: 12/26/1625 12/26/16524 Results 24 hrs Laboratory Tests Test 12/25/16 17:44 12/25/16 18:00 12/26/16 00:46 12/26/16 05:25 Bedside Glucose 248 H 224 H Urine Color LT. YELLOW Urine Clarity SLIGHTLY CLOUDY Urine pH 5.0 Urine Specific [place] 1.020 Urine Ketones NEGATIVE Urine Nitrite NEGATIVE Urine Bilirubin 1+ H Urine Ictotest NEGATIVE Urine Urobilinogen 0.2 E.U./dL Urine Leukocyte Esterase 1+ H Urine Microscopic RBC >50 Urine Microscopic WBC 2-5 Urine Squamous Epithelial Cells RARE Urine Bacteria MANY Urine Hemoglobin 3+ H Urine Glucose NEGATIVE Urine Total Protein 2+ H White Blood Count 9.1 Red Blood Count 3.65 L Hemoglobin 10.4 L Hematocrit 33.0 L Mean Corpuscular Volume 90.4 Mean Corpuscular Hemoglobin 28.5 L Mean Corpuscular Hemoglobin Concent 31.5 L Red Cell Distribution Width 18.0 H Platelet Count 125 L Mean Platelet Volume Neutrophils % 71.6 Lymphocytes % 6.4 L Monocytes % 10.6 Eosinophils % 2.0 Basophils % 0.3 Nucleated Red Blood Cells % 0.7 H Neutrophils # 6.5 Lymphocytes # 0.6 L Monocytes # 1.0 H Eosinophils # 0.2 Basophils # 0.0 Nucleated Red Blood Cells # 0.1 H Sodium Level 134 L Potassium Level 3.5 Chloride Level 104 Carbon Dioxide Level 22 Anion Gap 12 # Blood Urea Nitrogen 52 H Creatinine 4.20 H Glucose Level 184 Calcium Level 7.1 L Phosphorus Level 4.3 Thyroid Stimulating Hormone (TSH) 6.700 H Test 12/26/16 05:28 Bedside Glucose 187 Medications Medications Current Medications Ondansetron HCl (Zofran Inj) 4 mg Q6H PRN IV NAUSEA AND/OR VOMITING; Start at 16:00 Bisacodyl (Dulcolax Supp) 10 mg DAILY PRN [place] CONSTIPATION; Start 12/16/16 at 16 :00 Heparin Sodium (Porcine) (Heparin (5000 Units/0.5 ml)) 5,000 unit Q12 SC Last administered on 12/25/16 21:10; Admin Dose 5,000 UNIT; Start 12/16/16 at 21:00 Miscellaneous Information 1 ea NOTE XX ; Start 12/16/16 at 18:00 Glucose (Glutose) 15 gm Q15M PRN PO DECREASED GLUCOSE; Start 12/16/16 at 18:00 Glucose (Glutose) 22.5 gm Q15M PRN PO DECREASED GLUCOSE; Start 12/16/16 at 18: 00 Dextrose (D50w Syringe) 25 ml Q15M PRN IV DECREASED GLUCOSE; Start 12/16/16 at 18:00 Dextrose (D50w Syringe) 50 ml Q15M PRN IV DECREASED GLUCOSE; Start 12/16/16 at 18:00 Glucagon (Glucagen) 1 mg Q15M PRN IM DECREASED GLUCOSE; Start 12/16/16 at 18:00 Glucose (Glutose) 15 gm Q15M PRN BUCCAL DECREASED GLUCOSE; Start 12/16/16 at 18 :00 Insulin Aspart (Novolog Insulin Pen) (Adult SC Insulin - Moder... Q6 SC Last administered on 12/26/16 05:52; Admin Dose 4 UNIT; Start 12/17/16 at 00:00 Morphine Sulfate (morphine) 1 mg Q4H PRN IV PAIN LEVEL 1-5; Start 12/20/16 at 11:30 Nitroglycerin (Nitroglycerin (Sl Tab) 0.4 Mg) 1 tab Q5M PRN SL ANGINA Last administered on 12/21/16 01:06; Admin Dose 1 TAB; Start 12/21/16 at 00:30 Clopidogrel Bisulfate (plaVIX) 75 mg DAILY PO Last administered on 12/25/16 08: 17; Admin Dose 75 MG; Start 12/22/16 at 09:00 Ondansetron HCl 4 mg 4 mg Q4H PRN IV NAUSEA AND/OR VOMITING; Start 12/21/16 at 12:00 Piperacillin Sod/ Tazobactam Sod (Zosyn 2.25gm/ 50ml (Pmx)) 50 ml @ 100 mls/hr Q8 IVPB Last administered on 12/26/16 05:54; Admin Dose 100 MLS/HR; Start at 14:00 Zolpidem Tartrate (Ambien) 5 mg HS PRN PO INSOMNIA Last administered on 20:32; Admin Dose 5 MG; Start 12/22/16 at 22:00 Atorvastatin Calcium (Lipitor) 40 mg HS PO Last administered on 12/25/16 21:08 ; Admin Dose 40 MG; Start 12/23/16 at 21:00 Amiodarone HCl (Cordarone) 200 mg BID PO Last administered on 12/25/16 21:09; Admin Dose 200 MG; Start 12/24/16 at 09:00 Hydralazine HCl (Apresoline) 10 mg Q6H PRN IV ELEVATED BLOOD PRESSURE; Start at 08:00 Aspirin (Halfprin) 81 mg DAILY PO Last administered on 12/25/16 09:00; Admin Dose 81 MG; Start 12/25/16 at 09:00 Multivit/Ca Carb/ B Cmplx/FA/Prenat (Nadiya-Ozzie) 1 tab DAILY PO Last administered on 12/25/16 09:00; Admin Dose 1 TAB; Start 12/25/16 at 09:00 Acetaminophen (Tylenol Tab) 650 mg Q6H PRN PO PAIN AND OR ELEVATED TEMP; Start 12/25/16 at 08:30 Docusate Sodium (Colace) 200 mg DAILY PO Last administered on 12/25/16 09:00; Admin Dose 200 MG; Start 12/25/16 at 09:00 Levothyroxine Sodium (Synthroid) 75 mcg DAILY@06 PO ; Start 12/27/16 at 06:00 Metoprolol Succinate (Toprol Xl) 50 mg BID PO ; Start 12/26/16 at 09:00; Status UNV Pantoprazole (Protonix Tab) 40 mg AM PO ; Start 12/26/16 at 09:00; Status UNV Patient Own Medication 1 ea BID PO ; Start 12/26/16 at 09:00; Status UNV FAREED CASTELLANO MD Dec 26, 2016 08:25
--- NOTE | 2016-12-26 08:29 | CONS ---
Date/Time of Note Date/Time of Note DATE: 12/26/16 TIME: 08:26 Assessment/Plan Assessment/Plan Chief Complaint/Hosp Course 1) s/p [place] with severe cardiac disease currently asymptomatic 2) CRI with progression and requiring HD will check u/a and urine cx to verify no UTI 4/5 - u/a shows minimal wbc, but has hematuria robles is out doubt active UTI 3) CHF secondary to poor cardiac function no elevation of WBC, no fever doubt pt has pneumonia will likely d/c zosyn soon procalcitonin not helpful in light of his renal status 4/5 - WBC remains good and platelets are better doubt active pneumonia will d/c zosyn 4) Myelofibrosis Problems: Consultation Date/Type/Reason Admit Date/Time Dec 16, 2016 at 17:40 Initial Consult Date 12/21/16 Type of Consultation: ID Referring Provider: JULIANNE ESTRELLA MD 24 HR Interval Summary Free Text/Dictation pt still has a dry cough mostly no SOB, was able to walk yesterday without getting SOB no N, V, D, CP, abd pain Exam/Review of Systems Vital Signs Vitals Vital Signs Date Time Temp Pulse Resp B/P Pulse Ox O2 Delivery O2 Flow Rate FiO2 12/26/16 07:00 73 140/66 12/26/16 06:00 16 97 Nasal Cannula 3.0 12/26/16 04:00 98.5 12/25/16 14:30 50 Intake and Output 12/25/16 12/25/16 12/26/16 15:00 23:00 07:00 Intake Total 1100 ml 470 ml 530 ml Output Total 4790 ml 110 ml 100 ml Balance -3690 ml 360 ml 430 ml Exam Constitutional: alert, oriented Psych: no complaints Head: normocephalic Eyes: nl sclera ENMT: mucosa pink and moist Respiratory: other (decreased BS at bases) Cardiovascular: regular rate and rhythm Gastrointestinal: non-tender, soft Extremities: other (trace edema to LE) Results Result Diagram: 12/26/16 0525 12/26/16 0525 Results 24 hrs Laboratory Tests Test 12/25/16 17:44 12/25/16 18:00 12/26/16 00:46 12/26/16 05:25 Bedside Glucose 248 H 224 H Urine Color LT. YELLOW Urine Clarity SLIGHTLY CLOUDY Urine pH 5.0 Urine Specific [place] 1.020 Urine Ketones NEGATIVE Urine Nitrite NEGATIVE Urine Bilirubin 1+ H Urine Ictotest NEGATIVE Urine Urobilinogen 0.2 E.U./dL Urine Leukocyte Esterase 1+ H Urine Microscopic RBC >50 Urine Microscopic WBC 2-5 Urine Squamous Epithelial Cells RARE Urine Bacteria MANY Urine Hemoglobin 3+ H Urine Glucose NEGATIVE Urine Total Protein 2+ H White Blood Count 9.1 Red Blood Count 3.65 L Hemoglobin 10.4 L Hematocrit 33.0 L Mean Corpuscular Volume 90.4 Mean Corpuscular Hemoglobin 28.5 L Mean Corpuscular Hemoglobin Concent 31.5 L Red Cell Distribution Width 18.0 H Platelet Count 125 L Mean Platelet Volume Neutrophils % 71.6 Lymphocytes % 6.4 L Monocytes % 10.6 Eosinophils % 2.0 Basophils % 0.3 Nucleated Red Blood Cells % 0.7 H Neutrophils # 6.5 Lymphocytes # 0.6 L Monocytes # 1.0 H Eosinophils # 0.2 Basophils # 0.0 Nucleated Red Blood Cells # 0.1 H Sodium Level 134 L Potassium Level 3.5 Chloride Level 104 Carbon Dioxide Level 22 Anion Gap 12 # Blood Urea Nitrogen 52 H Creatinine 4.20 H Glucose Level 184 Calcium Level 7.1 L Phosphorus Level 4.3 Thyroid Stimulating Hormone (TSH) 6.700 H Test 12/26/16 05:28 Bedside Glucose 187 Medications Medications Current Medications Ondansetron HCl (Zofran Inj) 4 mg Q6H PRN IV NAUSEA AND/OR VOMITING; Start at 16:00 Bisacodyl (Dulcolax Supp) 10 mg DAILY PRN [place] CONSTIPATION; Start 12/16/16 at 16 :00 Heparin Sodium (Porcine) (Heparin (5000 Units/0.5 ml)) 5,000 unit Q12 SC Last administered on 12/25/16t 21:10; Admin Dose 5,000 UNIT; Start 12/16/16 at 21:00 Miscellaneous Information 1 ea NOTE XX ; Start 12/16/16 at 18:00 Glucose (Glutose) 15 gm Q15M PRN PO DECREASED GLUCOSE; Start 12/16/16 at 18:00 Glucose (Glutose) 22.5 gm Q15M PRN PO DECREASED GLUCOSE; Start 12/16/16 at 18: 00 Dextrose (D50w Syringe) 25 ml Q15M PRN IV DECREASED GLUCOSE; Start 12/16/16 at 18:00 Dextrose (D50w Syringe) 50 ml Q15M PRN IV DECREASED GLUCOSE; Start 12/16/16 at 18:00 Glucagon (Glucagen) 1 mg Q15M PRN IM DECREASED GLUCOSE; Start 12/16/16 at 18:00 Glucose (Glutose) 15 gm Q15M PRN BUCCAL DECREASED GLUCOSE; Start 12/16/16 at 18 :00 Insulin Aspart (Novolog Insulin Pen) (Adult SC Insulin - Moder... Q6 SC Last administered on 12/26/16 05:52; Admin Dose 4 UNIT; Start 12/17/16 at 00:00 Morphine Sulfate (morphine) 1 mg Q4H PRN IV PAIN LEVEL 1-5; Start 12/20/16 at 11:30 Nitroglycerin (Nitroglycerin (Sl Tab) 0.4 Mg) 1 tab Q5M PRN SL ANGINA Last administered on 12/21/16 01:06; Admin Dose 1 TAB; Start 12/21/16 at 00:30 Clopidogrel Bisulfate (plaVIX) 75 mg DAILY PO Last administered on 12/25/16 08: 17; Admin Dose 75 MG; Start 12/22/16 at 09:00 Ondansetron HCl 4 mg 4 mg Q4H PRN IV NAUSEA AND/OR VOMITING; Start 12/21/16 at 12:00 Piperacillin Sod/ Tazobactam Sod (Zosyn 2.25gm/ 50ml (Pmx)) 50 ml @ 100 mls/hr Q8 IVPB Last administered on 12/26/16 05:54; Admin Dose 100 MLS/HR; Start at 14:00 Zolpidem Tartrate (Ambien) 5 mg HS PRN PO INSOMNIA Last administered on 20:32; Admin Dose 5 MG; Start 12/22/16 at 22:00 Atorvastatin Calcium (Lipitor) 40 mg HS PO Last administered on 12/25/16 21:08 ; Admin Dose 40 MG; Start 12/23/16 at 21:00 Amiodarone HCl (Cordarone) 200 mg BID PO Last administered on 12/25/16 21:09; Admin Dose 200 MG; Start 12/24/16 at 09:00 Hydralazine HCl (Apresoline) 10 mg Q6H PRN IV ELEVATED BLOOD PRESSURE; Start at 08:00 Aspirin (Halfprin) 81 mg DAILY PO Last administered on 12/25/16 09:00; Admin Dose 81 MG; Start 12/25/16 at 09:00 Multivit/Ca Carb/ B Cmplx/FA/Prenat (Nadiya-Ozzie) 1 tab DAILY PO Last administered on 12/25/16 09:00; Admin Dose 1 TAB; Start 12/25/16 at 09:00 Acetaminophen (Tylenol Tab) 650 mg Q6H PRN PO PAIN AND OR ELEVATED TEMP; Start 12/25/16 at 08:30 Docusate Sodium (Colace) 200 mg DAILY PO Last administered on 12/25/16 09:00; Admin Dose 200 MG; Start 12/25/16 at 09:00 Levothyroxine Sodium (Synthroid) 75 mcg DAILY@06 PO ; Start 12/27/16 at 06:00 Metoprolol Succinate (Toprol Xl) 50 mg BID PO ; Start 12/26/16 at 09:00; Status UNV Pantoprazole (Protonix Tab) 40 mg AM PO ; Start 12/26/16 at 09:00; Status UNV Patient Own Medication 1 ea BID PO ; Start 12/26/16 at 09:00; Status UNV FAREED CASTELLANO MD Dec 26, 2016 08:28
[2016-12-26] MEDS ORDERED: POTASSIUM CHLORIDE (SR) 10 MEQ TAB PO ONE (08:30)
[2016-12-26] MEDS: CLOPIDOGREL 75 MG TAB PO SCH (08:37)
[2016-12-26] MEDS: DOCUSATE SODIUM 100 MG CAP PO SCH (08:37)
[2016-12-26] MEDS: MULTIVIT/CA CARB/B CMPLX/FA TAB PO SCH (08:37)
[2016-12-26] MEDS: ASPIRIN (EC) 81 MG TAB PO SCH (08:37)
[2016-12-26] MEDS: AMIODARONE 200 MG TAB PO SCH ×2 (08:37→21:35)
[2016-12-26] MEDS: IPRATROPIUM (NEB) 0.5 MG/2.5 ML AMP HHN SCH ×3 (08:40→19:52)
[2016-12-26] MEDS: HEPARIN 5,000 UNIT/0.5 ML VIAL SC SCH ×2 (08:43→21:53)
[2016-12-26] MEDS: METOPROLOL (XL) 50 MG TAB PO SCH ×2 (09:05→21:35)
--- NOTE | 2016-12-26 09:20 | CONS ---
DATE OF ADMISSION: 12/16/2016 DATE OF CONSULTATION: 12/26/2016 PHYSICIAN REQUESTING CONSULTATION: Dr. Tristen Cooper. REASON FOR CONSULTATION: Myelofibrosis. Dear Dr. Cooper, Thank you very much for asking me to see this very interesting and pleasant gentleman in hematologic consultation. As you know, I have seen Mr. Watson in the past, but this was several years ago. 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 At the time of his admission to the hospital, the patient had been taking ruxolitinib (Jakafi) at a dose of 5 mg twice a day. The patient had been taking this on a regular basis for at least the past 5 or 6 years. The dose had previously been up to 10 mg twice a day. The patient states that he has had a good response as far as his blood counts. He has not been requiring transfusion support for the past 3 years. Prior to that he had been receiving transfusions. The patient has been, however, receiving Aranesp as an outpatient to help support red blood cell production. The patient was admitted to [facility] on 12/16/2016. The patient at that time was experiencing abdominal pain with nausea and vomiting. The patient was found to have a small-bowel obstruction. He was treated with NG suction and hydration, and this has since improved so the patient is now able to tolerate a regular diet. The patient has had, however, a somewhat stormy hospital course. The patient did develop chest pain approximately 12/21/2016. At that time, the patient had elevated troponin and there was some ST segment depression in the lateral leads. The patient did develop ventricular tachycardia and required resuscitation. The patient required intubation. The patient did undergo a coronary artery angiogram. There were no lesions. There was some evidence of external compression of a superior saphenous vein graft, but this was not something that could be expanded by angioplasty. The patient has recovered from myocardial infarction and has now been extubated. During this time, the patient had become hypotensive, possibly due to hypovolemia. This was accompanied by worsening in his underlying chronic kidney disease. The patient's creatinine has risen to 4.85. For this reason, a right-sided femoral Alfredo catheter was placed, and the patient did undergo acute hemodialysis on 12/25/2016. As noted, the patient does have a history of myelofibrosis. For this he has been taking Jakafi. On admission to the hospital, the patient had a white count of 14,400. Hemoglobin was 9.8, hematocrit 31.7, and platelet count 322,000. The hemoglobin did drop as low as 7.6 on 12/23/2016. At that time, white count was 6500 and platelet count 120,000. The patient has received transfusion with at least 2 units of packed red blood cells during this hospitalization and possibly 4. Today, the patient's white count is 9100, hemoglobin 10.4, hematocrit 33, and platelet count 125,000. As noted, the patient had been on Jakafi 5 mg twice a day up to the time of admission. This was discontinued at the time of admission. The patient has not had any obvious symptoms related to withdrawal of Jakafi. PAST MEDICAL HISTORY: Does include a history of myelofibrosis as noted. He also has a history of coronary artery disease with prior coronary artery bypass graft surgery and also stent placement on 2 different occasions. Other medical problems include diabetes mellitus, chronic kidney disease, chronic systolic congestive heart failure, hypertension, hyperlipidemia, hypothyroidism, gout, peripheral neuropathy, peripheral vascular disease, spinal stenosis. PAST SURGICAL HISTORY: Included the coronary artery bypass graft surgery as noted. SOCIAL HISTORY: Patient is . Lives at home with his . Has not been a smoker. Does not use other alcoholic beverages. PHYSICAL EXAMINATION GENERAL: At this time reveals a well-developed, well-nourished elderly male in no acute distress. VITAL SIGNS: Temperature 98.5, pulse 70 per minute, respirations 16 per minute and regular, blood pressure 134/74, and pulse oximetry is 97% on 3 liters of oxygen by nasal cannula. SKIN: There are scattered ecchymoses and purpura. HEENT: Normocephalic. No evidence of trauma. There is no scleral icterus. Oral mucosa is moist without lesions. Tongue is well papillated. There is no gingival hyperplasia, no hypertrophy of Waldeyer ring, no mucosal telangiectasias. There is nasal oxygen in place. NECK: Supple. There is no jugular venous distention or thyroid enlargement. No carotid bruits heard at this time. CHEST: Clear to auscultation and percussion. There are no rhonchi, wheezes, rales, or rubs at this time. There is a sternotomy scar present. NODES: No palpable lymphadenopathy in any lymph node bearing area ABDOMEN: Soft. There are no masses or ascites. I cannot detect any splenomegaly. EXTREMITIES: No clubbing. No edema or cyanosis. No palpable cords or Homans sign. There is a Alfredo catheter in the right femoral vein. There is no evidence of bleeding, no infection. NEUROLOGIC: Normal. DISCUSSION: As noted, this patient does have a history of myelofibrosis and has been receiving Jakafi chronically for approximately 3 years. The patient was taken off Jakafi at the time of his admission. Sudden discontinuation of Jakafi can be somewhat problematic. There are 2 issues. Usually discontinuation of Jakafi results in recurrence of symptoms of myelofibrosis within a week to 10 days after its discontinuation. Other more serious complications include a withdrawal syndrome consistent with SIRS. These patients often become hypotensive and require pressors and corticosteroids. I do not feel that the patient's difficulties during this admission are actually related to the Jakafi withdrawal, but rather to the myocardial infarction. I would, however, suggest resuming Jakafi at the patient's usual dose of 5 mg twice a day. This medication is not available in the hospital. I have asked the patient to have his family bring in his medications so this can be resumed. Once again, thank you very much for the opportunity of participating in the medical care of this very interesting and pleasant gentleman. I will be happy to follow this patient with you and assist in his hematologic evaluation and followup as necessary. Dictated By: DARNELL AMARAL MD, SR/ROSANGELA Conf#: [id number] DID#: [id number]
--- NOTE | 2016-12-26 10:23 | CONS ---
Date/Time of Note Date/Time of Note DATE: 12/26/16 TIME: 10:21 Consult Date/Type/Reason Admit Date/Time Dec 16, 2016 at 17:40 Initial Consult Date 12/25/16 Type of Consultation: pulmonary intensive care Ordering Provider: JULIANNE ESTRELLA MD Subjective Patient stable this morning reports less shortness of breath Continues nasal cannula oxygen No chest pain or palpitations no orthopnea or PND Objective Vital Signs Date Time Temp Pulse Resp B/P Pulse Ox O2 Delivery O2 Flow Rate FiO2 12/26/16 09:08 78 24 130/78 98 Nasal Cannula 2.0 12/26/16 08:00 97.4 12/25/16 14:30 50 Intake and Output 12/25/16 12/25/16 12/26/16 15:00 23:00 07:00 Intake Total 1100 ml 470 ml 530 ml Output Total 4790 ml 110 ml 100 ml Balance -3690 ml 360 ml 430 ml Exam GENERAL: Elderly gentleman awake alert oriented comfortable at rest VITAL SIGNS: per chart NECK: Supple. No JVD or lymphadenopathy. CARDIAC EXAM: S1, S2. No added sounds or murmurs. CHEST: Diminished air entry bilaterally few expiratory wheezes ABDOMEN: Soft, nontender. No guarding or rebound. EXTREMITIES: No cyanosis, clubbing or edema. NEUROLOGIC: Generalized weakness. No focal deficits. Results/Medications Result Diagram: 12/26/16 0525 12/26/16 0525 Results 24 hrs Laboratory Tests Test 12/25/16 17:44 12/25/16 18:00 12/26/16 00:46 12/26/16 05:25 Bedside Glucose 248 H 224 H Urine Color LT. YELLOW Urine Clarity SLIGHTLY CLOUDY Urine pH 5.0 Urine Specific [place] 1.020 Urine Ketones NEGATIVE Urine Nitrite NEGATIVE Urine Bilirubin 1+ H Urine Ictotest NEGATIVE Urine Urobilinogen 0.2 E.U./dL Urine Leukocyte Esterase 1+ H Urine Microscopic RBC >50 Urine Microscopic WBC 2-5 Urine Squamous Epithelial Cells RARE Urine Bacteria MANY Urine Hemoglobin 3+ H Urine Glucose NEGATIVE Urine Total Protein 2+ H White Blood Count 9.1 Red Blood Count 3.65 L Hemoglobin 10.4 L Hematocrit 33.0 L Mean Corpuscular Volume 90.4 Mean Corpuscular Hemoglobin 28.5 L Mean Corpuscular Hemoglobin Concent 31.5 L Red Cell Distribution Width 18.0 H Platelet Count 125 L Mean Platelet Volume Neutrophils % 71.6 Lymphocytes % 6.4 L Monocytes % 10.6 Eosinophils % 2.0 Basophils % 0.3 Nucleated Red Blood Cells % 0.7 H Neutrophils # 6.5 Lymphocytes # 0.6 L Monocytes # 1.0 H Eosinophils # 0.2 Basophils # 0.0 Nucleated Red Blood Cells # 0.1 H Sodium Level 134 L Potassium Level 3.5 Chloride Level 104 Carbon Dioxide Level 22 Anion Gap 12 # Blood Urea Nitrogen 52 H Creatinine 4.20 H Glucose Level 184 Calcium Level 7.1 L Phosphorus Level 4.3 Thyroid Stimulating Hormone (TSH) 6.700 H Test 12/26/16 05:28 Bedside Glucose 187 Medications Current Medications Ondansetron HCl (Zofran Inj) 4 mg Q6H PRN IV NAUSEA AND/OR VOMITING; Start at 16:00 Bisacodyl (Dulcolax Supp) 10 mg DAILY PRN [place] CONSTIPATION; Start 12/16/16 at 16 :00 Heparin Sodium (Porcine) (Heparin (5000 Units/0.5 ml)) 5,000 unit Q12 SC Last administered on 12/26/16 08:43; Admin Dose 5,000 UNIT; Start 12/16/16 at 21:00 Miscellaneous Information 1 ea NOTE XX ; Start 12/16/16 at 18:00 Glucose (Glutose) 15 gm Q15M PRN PO DECREASED GLUCOSE; Start 12/16/16 at 18:00 Glucose (Glutose) 22.5 gm Q15M PRN PO DECREASED GLUCOSE; Start 12/16/16 at 18: 00 Dextrose (D50w Syringe) 25 ml Q15M PRN IV DECREASED GLUCOSE; Start 12/16/16 at 18:00 Dextrose (D50w Syringe) 50 ml Q15M PRN IV DECREASED GLUCOSE; Start 12/16/16 at 18:00 Glucagon (Glucagen) 1 mg Q15M PRN IM DECREASED GLUCOSE; Start 12/16/16 at 18:00 Glucose (Glutose) 15 gm Q15M PRN BUCCAL DECREASED GLUCOSE; Start 12/16/16 at 18 :00 Insulin Aspart (Novolog Insulin Pen) (Adult SC Insulin - Moder... Q6 SC Last administered on 12/26/16 05:52; Admin Dose 4 UNIT; Start 12/17/16 at 00:00 Morphine Sulfate (morphine) 1 mg Q4H PRN IV PAIN LEVEL 1-5; Start 12/20/16 at 11:30 Nitroglycerin (Nitroglycerin (Sl Tab) 0.4 Mg) 1 tab Q5M PRN SL ANGINA Last administered on 12/21/16 01:06; Admin Dose 1 TAB; Start 12/21/16 at 00:30 Clopidogrel Bisulfate (plaVIX) 75 mg DAILY PO Last administered on 12/26/16 08: 37; Admin Dose 75 MG; Start 12/22/16 at 09:00 Ondansetron HCl (Zofran Inj) 4 mg Q4H PRN IV NAUSEA AND/OR VOMITING; Start at 12:00 Zolpidem Tartrate (Ambien) 5 mg HS PRN PO INSOMNIA Last administered on 20:32; Admin Dose 5 MG; Start 12/22/16 at 22:00 Atorvastatin Calcium (Lipitor) 40 mg HS PO Last administered on 12/25/16 21:08 ; Admin Dose 40 MG; Start 12/23/16 at 21:00 Amiodarone HCl (Cordarone) 200 mg BID PO Last administered on 12/26/16 08:37; Admin Dose 200 MG; Start 12/24/16 at 09:00 Hydralazine HCl (Apresoline) 10 mg Q6H PRN IV ELEVATED BLOOD PRESSURE; Start at 08:00 Aspirin (Halfprin) 81 mg DAILY PO Last administered on 12/26/16 08:37; Admin Dose 81 MG; Start 12/25/16 at 09:00 Multivit/Ca Carb/ B Cmplx/FA/Prenat (Nadiya-Ozzie) 1 tab DAILY PO Last administered on 12/26/16 08:37; Admin Dose 1 TAB; Start 12/25/16 at 09:00 Acetaminophen (Tylenol Tab) 650 mg Q6H PRN PO PAIN AND OR ELEVATED TEMP; Start 12/25/16 at 08:30 Docusate Sodium (Colace) 200 mg DAILY PO Last administered on 12/26/16 08:37; Admin Dose 200 MG; Start 12/25/16 at 09:00 Levothyroxine Sodium (Synthroid) 75 mcg DAILY@06 PO ; Start 12/27/16 at 06:00 Metoprolol Succinate (Toprol Xl) 50 mg BID PO Last administered on 12/26/16 09: 05; Admin Dose 50 MG; Start 12/26/16 at 09:00 Pantoprazole (Protonix Tab) 40 mg AM PO Last administered on 12/26/16 09:04; Admin Dose 40 MG; Start 12/26/16 at 09:00 Patient Own Medication 1 ea BID PO ; Start 12/26/16 at 09:00; Status UNV Insulin Glargine (Lantus) 10 unit DAILY@20 SC ; Start 12/26/16 at 20:00 Assessment/Plan Chief Complaint/Hosp Course Assessment 1. Improving hypoxemic respiratory failure 2. Congestive cardiac failure 3. Acute renal failure now requiring hemodialysis 4. Possible aspiration pneumonia Plan 1. Continue hemodialysis as tolerated 2. Cardiac recommendations 3. Decrease oxygen as tolerated 4. Physical therapy evaluation encourage out of bed 5. De-escalation of antibiotics discussed with infectious diseases team 6. DVT GI prophylaxis Disposition Transfer to telemetry Problems: LESA HUTCHINS [facility], [facility] Dec 26, 2016 10:23
[2016-12-26] MEDS: GUAIFENESIN/DM 5ML CUP PO PRN ×3 (10:51→21:36)
--- NOTE | 2016-12-26 17:33 | CONS ---
Date/Time of Note Date/Time of Note DATE: 12/26/16 TIME: 17:27 Assessment/Plan Assessment/Plan Chief Complaint/Hosp Course Impression: - hypovolemic shock- resolved, ? if related to jakafi withdrawl. - NSTEMI- improved - A/CKD- likely from shock + possible contrast nephropathy. nephrology initiating dialysis - Acute on chronic systolic heart failure- 2/2 nstemi, fluid resuscitation. fluid mgmt with dialysis given a/ckd - Multi vessel coronary artery disease - mid [id number] severe stenosis, likely related to compression from surgical clips. no further interventions at this mac - SBO now resolved - Respiratory failure- extubated, but with cont congestion requiring o2 - VT/VF event - on amiodarone, no recurrence Recommendations: - cont asa 81mg daily and plavix 75 mg daily given NSTEMI - cont fluid removal with iHD - Maintain K>4, Mg>2 - Continue on amiodarone PO, can switch to daily dosing after 1 week - cont metoprolol, electrically stable, given lower bp during iHD will hold off titration for now - if renal function improves will consider ACEi/ARB or consider isordil/ hydralazine combo for CHF if bp stable during iHD - will consider ICD placement after stabilization of resp status/dialysis status , likely will need life vest as bridge to oupt ICD placement Problems: Consultation Date/Type/Reason Admit Date/Time Dec 16, 2016 at 17:40 Type of Consultation: Cardiology Referring Provider: JULIANNE ESTRELLA MD 24 HR Interval Summary Free Text/Dictation no acute events. pt breathing improved, still with dry cough. no cp, palpitations, dizziness. no iHD today. tele reviewed NSR no events Detailed Summary ENT: no complaints Respiratory: cough Cardiovascular: no complaints Gastrointestinal: no complaints Exam/Review of Systems Vital Signs Vitals Vital Signs Date Time Temp Pulse Resp B/P Pulse Ox O2 Delivery O2 Flow Rate FiO2 12/26/16 17:13 78 12/26/16 16:30 97.8 20 112/76 100 Nasal Cannula 2.0 12/25/16 14:30 50 Intake and Output 12/25/16 12/25/16 12/26/16 15:00 23:00 07:00 Intake Total 1100 ml 470 ml 530 ml Output Total 4790 ml 110 ml 100 ml Balance -3690 ml 360 ml 430 ml Exam Constitutional: alert, oriented Psych: no complaints Head: normocephalic Eyes: EOMI, nl conjunctiva, nl lids ENMT: mucosa pink and moist, nl external ears & nose, nl nasal mucosa & septum Neck: non-tender, supple, No jvd Respiratory: crackles/rales, diminished breath sounds Cardiovascular: other (RRRnl s1s2, ii/vi systolic LLSB), No diastolic murmur, No edema, No gallop, No irregular rhythm Gastrointestinal: nl liver, spleen, non-tender, soft Musculoskeletal: nl extremities to inspection, nl gait and stance Extremities: normal pulses 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: TICKET MANAGER II-XII intact, nl mental status, nl speech, nl strength Results Result Diagram: 12/26/16 0525 12/26/16 0525 Results 24 hrs Laboratory Tests Test 12/25/16 17:44 12/25/16 18:00 12/26/16 00:46 12/26/16 05:25 Bedside Glucose 248 H 224 H Urine Color LT. YELLOW Urine Clarity SLIGHTLY CLOUDY Urine pH 5.0 Urine Specific [place] 1.020 Urine Ketones NEGATIVE Urine Nitrite NEGATIVE Urine Bilirubin 1+ H Urine Ictotest NEGATIVE Urine Urobilinogen 0.2 E.U./dL Urine Leukocyte Esterase 1+ H Urine Microscopic RBC >50 Urine Microscopic WBC 2-5 Urine Squamous Epithelial Cells RARE Urine Bacteria MANY Urine Hemoglobin 3+ H Urine Glucose NEGATIVE Urine Total Protein 2+ H White Blood Count 9.1 Red Blood Count 3.65 L Hemoglobin 10.4 L Hematocrit 33.0 L Mean Corpuscular Volume 90.4 Mean Corpuscular Hemoglobin 28.5 L Mean Corpuscular Hemoglobin Concent 31.5 L Red Cell Distribution Width 18.0 H Platelet Count 125 L Mean Platelet Volume Neutrophils % 71.6 Lymphocytes % 6.4 L Monocytes % 10.6 Eosinophils % 2.0 Basophils % 0.3 Nucleated Red Blood Cells % 0.7 H Neutrophils # 6.5 Lymphocytes # 0.6 L Monocytes # 1.0 H Eosinophils # 0.2 Basophils # 0.0 Nucleated Red Blood Cells # 0.1 H Sodium Level 134 L Potassium Level 3.5 Chloride Level 104 Carbon Dioxide Level 22 Anion Gap 12 # Blood Urea Nitrogen 52 H Creatinine 4.20 H Glucose Level 184 Calcium Level 7.1 L Phosphorus Level 4.3 Thyroid Stimulating Hormone (TSH) 6.700 H Test 12/26/16 05:28 12/26/16 11:24 12/26/16 17:12 Bedside Glucose 187 319 H 212 Medications Medications Current Medications Ondansetron HCl (Zofran Inj) 4 mg Q6H PRN IV NAUSEA AND/OR VOMITING; Start at 16:00 Bisacodyl (Dulcolax Supp) 10 mg DAILY PRN [place] CONSTIPATION; Start 12/16/16 at 16 :00 Heparin Sodium (Porcine) (Heparin (5000 Units/0.5 ml)) 5,000 unit Q12 SC Last administered on 12/26/16 08:43; Admin Dose 5,000 UNIT; Start 12/16/16 at 21:00 Miscellaneous Information 1 ea NOTE XX ; Start 12/16/16 at 18:00 Glucose (Glutose) 15 gm Q15M PRN PO DECREASED GLUCOSE; Start 12/16/16 at 18:00 Glucose (Glutose) 22.5 gm Q15M PRN PO DECREASED GLUCOSE; Start 12/16/16 at 18: 00 Dextrose (D50w Syringe) 25 ml Q15M PRN IV DECREASED GLUCOSE; Start 12/16/16 at 18:00 Dextrose (D50w Syringe) 50 ml Q15M PRN IV DECREASED GLUCOSE; Start 12/16/16 at 18:00 Glucagon (Glucagen) 1 mg Q15M PRN IM DECREASED GLUCOSE; Start 12/16/16 at 18:00 Glucose (Glutose) 15 gm Q15M PRN BUCCAL DECREASED GLUCOSE; Start 12/16/16 at 18 :00 Insulin Aspart (Novolog Insulin Pen) (Adult SC Insulin - Moder... Q6 SC Last administered on 12/26/16 11:32; Admin Dose 10 UNIT; Start 12/17/16 at 00:00 Morphine Sulfate (morphine) 1 mg Q4H PRN IV PAIN LEVEL 1-5; Start 12/20/16 at 11:30 Nitroglycerin (Nitroglycerin (Sl Tab) 0.4 Mg) 1 tab Q5M PRN SL ANGINA Last administered on 12/21/16 01:06; Admin Dose 1 TAB; Start 12/21/16 at 00:30 Clopidogrel Bisulfate (plaVIX) 75 mg DAILY PO Last administered on 12/26/16 08: 37; Admin Dose 75 MG; Start 12/22/16 at 09:00 Ondansetron HCl (Zofran Inj) 4 mg Q4H PRN IV NAUSEA AND/OR VOMITING; Start at 12:00 Zolpidem Tartrate (Ambien) 5 mg HS PRN PO INSOMNIA Last administered on 20:32; Admin Dose 5 MG; Start 12/22/16 at 22:00 Atorvastatin Calcium (Lipitor) 40 mg HS PO Last administered on 12/25/16 21:08 ; Admin Dose 40 MG; Start 12/23/16 at 21:00 Amiodarone HCl (Cordarone) 200 mg BID PO Last administered on 12/26/16 08:37; Admin Dose 200 MG; Start 12/24/16 at 09:00 Hydralazine HCl (Apresoline) 10 mg Q6H PRN IV ELEVATED BLOOD PRESSURE; Start at 08:00 Aspirin (Halfprin) 81 mg DAILY PO Last administered on 12/26/16 08:37; Admin Dose 81 MG; Start 12/25/16 at 09:00 Multivit/Ca Carb/ B Cmplx/FA/Prenat (Nadiya-Ozzie) 1 tab DAILY PO Last administered on 12/26/16 08:37; Admin Dose 1 TAB; Start 12/25/16 at 09:00 Acetaminophen (Tylenol Tab) 650 mg Q6H PRN PO PAIN AND OR ELEVATED TEMP; Start 12/25/16 at 08:30 Docusate Sodium (Colace) 200 mg DAILY PO Last administered on 12/26/16 08:37; Admin Dose 200 MG; Start 12/25/16 at 09:00 Levothyroxine Sodium (Synthroid) 75 mcg DAILY@06 PO ; Start 12/27/16 at 06:00 Metoprolol Succinate (Toprol Xl) 50 mg BID PO Last administered on 12/26/16 09: 05; Admin Dose 50 MG; Start 12/26/16 at 09:00 Pantoprazole (Protonix Tab) 40 mg AM PO Last administered on 12/26/16 09:04; Admin Dose 40 MG; Start 12/26/16 at 09:00 Patient Own Medication 1 ea BID PO ; Start 12/26/16 at 09:00; Status UNV Insulin Glargine (Lantus) 10 unit DAILY@20 SC ; Start 12/26/16 at 20:00 Guaifenesin/ Dextromethorphan (Robitussin Dm Liquid Cup) 10 ml QID PRN PO cough Last administered on 12/26/16t 15:35; Admin Dose 10 ML; Start 12/26/16 at 10 :30 SAMY ROSALES Dec 26, 2016 17:33
[2016-12-26] MEDS: ATORVASTATIN 40 MG TAB PO SCH (21:35)
[2016-12-26] MEDS: INSULIN GLARGINE [LANtus] 3 ML PEN SC SCH (21:53)
[2016-12-27] VITALS (18 sets, daily range): BP systolic 104–161; BP diastolic 52–76; PULSE 69–86; RESP 20–22
[2016-12-27] MEDS: Insulin NOVOLOG SS MODERATE Algorithm(NPO/TPN/ENTERAL FEEDS) SC SCH ×4 (00:35→18:49)
[2016-12-27] MEDS: LEVALBUTEROL (NEB) 0.31 MG/3 ML AMP HHN SCH ×4 (02:10→20:00)
[2016-12-27] MEDS: IPRATROPIUM (NEB) 0.5 MG/2.5 ML AMP HHN SCH ×4 (02:11→20:00)
[2016-12-27] MEDS: LEVOTHYROXINE 75 MCG TAB PO SCH (06:29)
[2016-12-27 08:14] LABS: ADD SCAN DIFF NO
[2016-12-27 08:22] LABS: ABNORMAL IP MESSAGE 1; BASOPHIL # 0.1 10^3/ul (0.0-0.1); BASOPHILS % 0.7 % (0.0-2.0); EOSINOPHILS # 0.2 10^3/ul (0.0-0.5); EOSINOPHILS % 1.6 % (0.0-7.0); HEMATOCRIT 34.3 % (42.0-52.0); LYMPHOCYTES % 7.6 % (15.0-51.0); MEAN CORPUSCULAR HEMOGLOBIN 29.2 pg (29.0-33.0); MEAN CORPUSCULAR HGB CONC 32.1 g/dl (32.0-37.0); MEAN PLATELET VOLUME 13.8 fl (7.4-10.4); MONOCYTE # 1.1 10^3/ul (0.3-0.9); MONOCYTES % 8.4 % (0.0-11.0); NEUTROPHILS % 69.9 % (39.0-77.0); NUCLEATED RED BLOOD CELLS # 0.1 10^3/ul (0.0-0.0); NUCLEATED RED BLOOD CELLS% 0.5 /100WBC (0.0-0.0); PLATELET COUNT 185 10^3/UL (140-415); RED BLOOD COUNT 3.77 10^6/ul (4.70-6.10); RED CELL DISTRIBUTION WIDTH 17.9 % (11.5-14.5); WHITE BLOOD COUNT 12.9 10^3/ul (4.8-10.8)
[2016-12-27 08:49] LABS: CALCIUM 6.8 mg/dl (8.4-10.2); CREATININE 4.17 mg/dl (0.61-1.24); PHOSPHORUS 4.3 mg/dl (2.5-4.9)
[2016-12-27] MEDS: PANTOPRAZOLE (EC) 40 MG TAB PO SCH ×2 (09:00→13:16)
[2016-12-27] MEDS: MULTIVIT/CA CARB/B CMPLX/FA TAB PO SCH (09:00)
[2016-12-27] MEDS: ASPIRIN (EC) 81 MG TAB PO SCH ×2 (09:00→13:15)
[2016-12-27] MEDS: AMIODARONE 200 MG TAB PO SCH ×4 (09:00→23:55)
[2016-12-27] MEDS: DOCUSATE SODIUM 100 MG CAP PO SCH (09:00)
[2016-12-27] MEDS: CLOPIDOGREL 75 MG TAB PO SCH ×2 (09:00→13:15)
[2016-12-27] MEDS: METOPROLOL (XL) 50 MG TAB PO SCH ×4 (09:00→23:56)
[2016-12-27] MEDS: HEPARIN 5,000 UNIT/0.5 ML VIAL SC SCH ×2 (09:00→22:03)
--- NOTE | 2016-12-27 11:17 | CONS ---
Date/Time of Note Date/Time of Note DATE: 12/27/16 TIME: 11:15 Assessment/Plan Assessment/Plan Chief Complaint/Hosp Course Impression: - hypovolemic shock- resolved, ? if related to jakafi withdrawl. - NSTEMI- improved - A/CKD- likely from shock + possible contrast nephropathy. nephrology initiating dialysis - Acute on chronic systolic heart failure- 2/2 nstemi, fluid resuscitation. fluid mgmt with dialysis given a/ckd - Multi vessel coronary artery disease - mid [id number] severe stenosis, likely related to compression from surgical clips. no further interventions at this mac - SBO now resolved - Respiratory failure- extubated, but with cont congestion requiring o2 - VT/VF event - on amiodarone, no recurrence Recommendations: - cont asa 81mg daily and plavix 75 mg daily given NSTEMI - cont fluid removal with iHD - Maintain K>4, Mg>2 - Continue on amiodarone PO, can switch to daily dosing tomorrow - cont metoprolol, electrically stable, if bp stable during iHD will increase dose - if renal function improves will consider ACEi/ARB or consider isordil/ hydralazine combo for CHF if bp stable during iHD - will consider ICD placement after stabilization of resp status/dialysis status , likely will need life vest as bridge to oupt ICD placement Problems: Consultation Date/Type/Reason Admit Date/Time Dec 16, 2016 at 17:40 Type of Consultation: Cardiology Referring Provider: JULIANNE ESTRELLA MD 24 HR Interval Summary Free Text/Dictation no acute events. pt denies cp/sob. iHD today, bp stable during run. feels tired tele reviewed: no events, nsr 80s-90s Detailed Summary ENT: no complaints Respiratory: no complaints Cardiovascular: no complaints Gastrointestinal: no complaints Exam/Review of Systems Vital Signs Vitals Vital Signs Date Time Temp Pulse Resp B/P Pulse Ox O2 Delivery O2 Flow Rate FiO2 12/27/16 11:12 98.2 75 20 123/66 96 12/27/16 02:38 2.0 27 12/26/16 20:30 Nasal Cannula Intake and Output 12/26/16 12/26/16 12/27/16 14:59 22:59 06:59 Intake Total 550 ml 250 ml Output Total 300 ml 400 ml Balance 250 ml -150 ml Exam Constitutional: alert, oriented Psych: no complaints Head: normocephalic Eyes: EOMI, nl conjunctiva, nl lids ENMT: mucosa pink and moist, nl external ears & nose, nl nasal mucosa & septum Neck: non-tender, supple, No jvd Respiratory: crackles/rales, diminished breath sounds Cardiovascular: other (RRRnl s1s2, ii/vi systolic LLSB), No diastolic murmur, No edema, No gallop, No irregular rhythm Gastrointestinal: nl liver, spleen, non-tender, soft Musculoskeletal: nl extremities to inspection, nl gait and stance Extremities: normal pulses 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: 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, nl mental status, nl speech, nl strength Results Result Diagram: 12/27/1671112/27/16 0712 Results 24 hrs Laboratory Tests Test 12/26/16 11:24 12/26/16 17:12 12/26/16 21:33 12/26/16 23:55 Bedside Glucose 319 H 212 262 H 236 H Test 12/27/16 05:21 12/27/16 07:12 Bedside Glucose 198 White Blood Count 12.9 #H Red Blood Count 3.77 L Hemoglobin 11.0 L Hematocrit 34.3 L Mean Corpuscular Volume 91.0 Mean Corpuscular Hemoglobin 29.2 Mean Corpuscular Hemoglobin Concent 32.1 Red Cell Distribution Width 17.9 H Platelet Count 185 # Mean Platelet Volume 13.8 H Neutrophils % 69.9 Lymphocytes % 7.6 L Monocytes % 8.4 Eosinophils % 1.6 Basophils % 0.7 Nucleated Red Blood Cells % 0.5 H Neutrophils # 9.0 H Lymphocytes # 1.0 Monocytes # 1.1 H Eosinophils # 0.2 Basophils # 0.1 Nucleated Red Blood Cells # 0.1 H Sodium Level 130 L Potassium Level 4.0 Chloride Level 101 Carbon Dioxide Level 16 L Anion Gap 17 H Blood Urea Nitrogen 59 H Creatinine 4.17 H Glucose Level 172 Calcium Level 6.8 L Phosphorus Level 4.3 Magnesium Level 2.0 Medications Medications Current Medications Ondansetron HCl (Zofran Inj) 4 mg Q6H PRN IV NAUSEA AND/OR VOMITING; Start at 16:00 Bisacodyl (Dulcolax Supp) 10 mg DAILY PRN [place] CONSTIPATION; Start 12/16/16 at 16 :00 Heparin Sodium (Porcine) (Heparin (5000 Units/0.5 ml)) 5,000 unit Q12 SC Last administered on 12/26/16 21:53; Admin Dose 5,000 UNIT; Start 12/16/16 at 21:00 Miscellaneous Information 1 ea NOTE XX ; Start 12/16/16 at 18:00 Glucose (Glutose) 15 gm Q15M PRN PO DECREASED GLUCOSE; Start 12/16/16 at 18:00 Glucose (Glutose) 22.5 gm Q15M PRN PO DECREASED GLUCOSE; Start 12/16/16 at 18: 00 Dextrose (D50w Syringe) 25 ml Q15M PRN IV DECREASED GLUCOSE; Start 12/16/16 at 18:00 Dextrose (D50w Syringe) 50 ml Q15M PRN IV DECREASED GLUCOSE; Start 12/16/16 at 18:00 Glucagon (Glucagen) 1 mg Q15M PRN IM DECREASED GLUCOSE; Start 12/16/16 at 18:00 Glucose (Glutose) 15 gm Q15M PRN BUCCAL DECREASED GLUCOSE; Start 12/16/16 at 18 :00 Insulin Aspart (Novolog Insulin Pen) (Adult SC Insulin - Moder... Q6 SC Last administered on 12/27/16 06:29; Admin Dose 4 UNIT; Start 12/17/16 at 00:00 Morphine Sulfate (morphine) 1 mg Q4H PRN IV PAIN LEVEL 1-5; Start 12/20/16 at 11:30 Nitroglycerin (Nitroglycerin (Sl Tab) 0.4 Mg) 1 tab Q5M PRN SL ANGINA Last administered on 12/21/16 01:06; Admin Dose 1 TAB; Start 12/21/16 at 00:30 Clopidogrel Bisulfate (plaVIX) 75 mg DAILY PO Last administered on 12/26/16 08: 37; Admin Dose 75 MG; Start 12/22/16 at 09:00 Ondansetron HCl (Zofran Inj) 4 mg Q4H PRN IV NAUSEA AND/OR VOMITING; Start at 12:00 Zolpidem Tartrate (Ambien) 5 mg HS PRN PO INSOMNIA Last administered on 20:32; Admin Dose 5 MG; Start 12/22/16 at 22:00 Atorvastatin Calcium (Lipitor) 40 mg HS PO Last administered on 12/26/16 21:35 ; Admin Dose 40 MG; Start 12/23/16 at 21:00 Amiodarone HCl (Cordarone) 200 mg BID PO Last administered on 12/26/16 21:35; Admin Dose 200 MG; Start 12/24/16 at 09:00 Hydralazine HCl (Apresoline) 10 mg Q6H PRN IV ELEVATED BLOOD PRESSURE; Start at 08:00 Aspirin (Halfprin) 81 mg DAILY PO Last administered on 12/26/16 08:37; Admin Dose 81 MG; Start 12/25/16 at 09:00 Multivit/Ca Carb/ B Cmplx/FA/Prenat (Nadiya-Ozzie) 1 tab DAILY PO Last administered on 12/26/16 08:37; Admin Dose 1 TAB; Start 12/25/16 at 09:00 Acetaminophen (Tylenol Tab) 650 mg Q6H PRN PO PAIN AND OR ELEVATED TEMP; Start 12/25/16 at 08:30 Docusate Sodium (Colace) 200 mg DAILY PO Last administered on 12/26/16 08:37; Admin Dose 200 MG; Start 12/25/16 at 09:00 Levothyroxine Sodium (Synthroid) 75 mcg DAILY@06 PO Last administered on 06:29; Admin Dose 75 MCG; Start 12/27/16 at 06:00 Metoprolol Succinate (Toprol Xl) 50 mg BID PO Last administered on 12/26/16 21: 35; Admin Dose 50 MG; Start 12/26/16 at 09:00 Pantoprazole (Protonix Tab) 40 mg AM PO Last administered on 12/26/16 09:04; Admin Dose 40 MG; Start 12/26/16 at 09:00 Patient Own Medication 1 ea BID PO ; Start 12/26/16 at 09:00; Status UNV Insulin Glargine (Lantus) 10 unit DAILY@20 SC Last administered on 12/26/16 21: 53; Admin Dose 10 UNIT; Start 12/26/16 at 20:00 Guaifenesin/ Dextromethorphan (Robitussin Dm Liquid Cup) 10 ml QID PRN PO cough Last administered on 12/26/16 21:36; Admin Dose 10 ML; Start 12/26/16 at 10 :30 Miscellaneous Information (*Order Clarification Bulletin) lorna James mg:FAMILY TO BRING... Q8H XX ; Start 12/27/16 at 10:00 SAMY ROSALES Dec 27, 2016 11:17
--- NOTE | 2016-12-27 11:18 | CONS ---
Date/Time of Note Date/Time of Note DATE: 12/27/16 TIME: 11:16 Assessment/Plan Assessment/Plan Additional Assessment/Plan Assessment recommendations; 1. Patient admitted for cardiac arrest with respiratory failure no successful he estimated several days ago approximately telemetry unit with excellent clinical status. 2. Renal failure, now requiring hemodialysis. 3. History of hypothyroidism, hypertension, diabetes. 4. Possibly some element of aspiration pneumonia. Clinically improving. Continue current treatment. Consultation Date/Type/Reason Admit Date/Time Dec 16, 2016 at 17:40 Initial Consult Date 12/21/16 Type of Consultation: Pulmonary Referring Provider: JULIANNE ESTRELLA MD 24 HR Interval Summary Free Text/Dictation Patient is doing fairly well. Transfer to telemetry unit. Currently getting hemodialysis at bedside. Complains of very minimal shortness of breath. Denies any chest pain, fever chills sputum production. Abdomen exam; elderly male, awake alert currently in no distress. Exam/Review of Systems Vital Signs Vitals Vital Signs Date Time Temp Pulse Resp B/P Pulse Ox O2 Delivery O2 Flow Rate FiO2 12/27/16 11:12 98.2 75 20 123/66 96 12/27/16 02:38 2.0 27 12/26/16 20:30 Nasal Cannula Intake and Output 12/26/16 12/26/16 12/27/16 15:00 23:00 07:00 Intake Total 550 ml 250 ml Output Total 300 ml 400 ml Balance 250 ml -150 ml Exam HEENT exam; supple neck, no JVD. No lymphadenopathy. Midline trachea. No thyromegaly. Patient has multiple carious teeth. Pupils are midsize intact with light. No neck masses. No thyromegaly. No neck bruits. Chest exam; diminished but clear breath sounds bilaterally. S1-S2 audible, no murmurs. Regular rhythm. Abdomen exam; soft, nontender, nondistended. No organomegaly. Bowel sounds audible. Extremity exam; trace peripheral edema. Pulses 1+ bilaterally. There is no clubbing. Minimal ecchymosis seen in all 4 extremities. 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 Results Result Diagram: 12/27/16 0712 12/27/16 0712 Results 24 hrs Laboratory Tests Test 12/26/16 11:24 12/26/16 17:12 12/26/16 21:33 12/26/16 23:55 Bedside Glucose 319 H 212 262 H 236 H Test 12/27/16 05:21 12/27/16 07:12 Bedside Glucose 198 White Blood Count 12.9 #H Red Blood Count 3.77 L Hemoglobin 11.0 L Hematocrit 34.3 L Mean Corpuscular Volume 91.0 Mean Corpuscular Hemoglobin 29.2 Mean Corpuscular Hemoglobin Concent 32.1 Red Cell Distribution Width 17.9 H Platelet Count 185 # Mean Platelet Volume 13.8 H Neutrophils % 69.9 Lymphocytes % 7.6 L Monocytes % 8.4 Eosinophils % 1.6 Basophils % 0.7 Nucleated Red Blood Cells % 0.5 H Neutrophils # 9.0 H Lymphocytes # 1.0 Monocytes # 1.1 H Eosinophils # 0.2 Basophils # 0.1 Nucleated Red Blood Cells # 0.1 H Sodium Level 130 L Potassium Level 4.0 Chloride Level 101 Carbon Dioxide Level 16 L Anion Gap 17 H Blood Urea Nitrogen 59 H Creatinine 4.17 H Glucose Level 172 Calcium Level 6.8 L Phosphorus Level 4.3 Magnesium Level 2.0 Medications Medications Current Medications Ondansetron HCl (Zofran Inj) 4 mg Q6H PRN IV NAUSEA AND/OR VOMITING; Start at 16:00 Bisacodyl (Dulcolax Supp) 10 mg DAILY PRN [place] CONSTIPATION; Start 12/16/16 at 16 :00 Heparin Sodium (Porcine) (Heparin (5000 Units/0.5 ml)) 5,000 unit Q12 SC Last administered on 12/26/16t 21:53; Admin Dose 5,000 UNIT; Start 12/16/16 at 21:00 Miscellaneous Information 1 ea NOTE XX ; Start 12/16/16 at 18:00 Glucose (Glutose) 15 gm Q15M PRN PO DECREASED GLUCOSE; Start 12/16/16 at 18:00 Glucose (Glutose) 22.5 gm Q15M PRN PO DECREASED GLUCOSE; Start 12/16/16 at 18: 00 Dextrose (D50w Syringe) 25 ml Q15M PRN IV DECREASED GLUCOSE; Start 12/16/16 at 18:00 Dextrose (D50w Syringe) 50 ml Q15M PRN IV DECREASED GLUCOSE; Start 12/16/16 at 18:00 Glucagon (Glucagen) 1 mg Q15M PRN IM DECREASED GLUCOSE; Start 12/16/16 at 18:00 Glucose (Glutose) 15 gm Q15M PRN BUCCAL DECREASED GLUCOSE; Start 12/16/16 at 18 :00 Insulin Aspart (Novolog Insulin Pen) (Adult SC Insulin - Moder... Q6 SC Last administered on 12/27/16 06:29; Admin Dose 4 UNIT; Start 12/17/16 at 00:00 Morphine Sulfate (morphine) 1 mg Q4H PRN IV PAIN LEVEL 1-5; Start 12/20/16 at 11:30 Nitroglycerin (Nitroglycerin (Sl Tab) 0.4 Mg) 1 tab Q5M PRN SL ANGINA Last administered on 12/21/16 01:06; Admin Dose 1 TAB; Start 12/21/16 at 00:30 Clopidogrel Bisulfate (plaVIX) 75 mg DAILY PO Last administered on 12/26/16 08: 37; Admin Dose 75 MG; Start 12/22/16 at 09:00 Ondansetron HCl (Zofran Inj) 4 mg Q4H PRN IV NAUSEA AND/OR VOMITING; Start at 12:00 Zolpidem Tartrate (Ambien) 5 mg HS PRN PO INSOMNIA Last administered on 20:32; Admin Dose 5 MG; Start 12/22/16 at 22:00 Atorvastatin Calcium (Lipitor) 40 mg HS PO Last administered on 12/26/16 21:35 ; Admin Dose 40 MG; Start 12/23/16 at 21:00 Amiodarone HCl (Cordarone) 200 mg BID PO Last administered on 12/26/16 21:35; Admin Dose 200 MG; Start 12/24/16 at 09:00 Hydralazine HCl (Apresoline) 10 mg Q6H PRN IV ELEVATED BLOOD PRESSURE; Start at 08:00 Aspirin (Halfprin) 81 mg DAILY PO Last administered on 12/26/16 08:37; Admin Dose 81 MG; Start 12/25/16 at 09:00 Multivit/Ca Carb/ B Cmplx/FA/Prenat (Nadiya-Ozzie) 1 tab DAILY PO Last administered on 12/26/16 08:37; Admin Dose 1 TAB; Start 12/25/16 at 09:00 Acetaminophen (Tylenol Tab) 650 mg Q6H PRN PO PAIN AND OR ELEVATED TEMP; Start 12/25/16 at 08:30 Docusate Sodium (Colace) 200 mg DAILY PO Last administered on 12/26/16 08:37; Admin Dose 200 MG; Start 12/25/16 at 09:00 Levothyroxine Sodium (Synthroid) 75 mcg DAILY@06 PO Last administered on 06:29; Admin Dose 75 MCG; Start 12/27/16 at 06:00 Metoprolol Succinate (Toprol Xl) 50 mg BID PO Last administered on 12/26/16 21: 35; Admin Dose 50 MG; Start 12/26/16 at 09:00 Pantoprazole (Protonix Tab) 40 mg AM PO Last administered on 12/26/16 09:04; Admin Dose 40 MG; Start 12/26/16 at 09:00 Patient Own Medication 1 ea BID PO ; Start 12/26/16 at 09:00; Status UNV Insulin Glargine (Lantus) 10 unit DAILY@20 SC Last administered on 12/26/16 21: 53; Admin Dose 10 UNIT; Start 12/26/16 at 20:00 Guaifenesin/ Dextromethorphan (Robitussin Dm Liquid Cup) 10 ml QID PRN PO cough Last administered on 12/26/16 21:36; Admin Dose 10 ML; Start 12/26/16 at 10 :30 Miscellaneous Information (*Order Clarification Bulletin) jakafi 5 mg:FAMILY TO BRING... Q8H XX ; Start 12/27/16 at 10:00 JUAN FIGUEREDO Dec 27, 2016 11:18
--- NOTE | 2016-12-27 11:45 | PN ---
Date/Time of Note Date/Time of Note DATE: 12/27/16 TIME: 11:42 Assessment/Plan VTE Prophylaxis VTE Prophylaxis Intervention: other (per primary MD) Lines/Catheters IV Catheter Type (from Nrs): Saline Lock Urinary Cath still in place: No Assessment/Plan Assessment/Plan Pt is to resume Jakafi today. He is stable and the Hgb remains ~11. Platelets are normal. Continue other program per Dr. Cooper. Subjective 24 Hr Interval Summary Free Text/Dictation Pt is feeling better. brought in the Jakafi from home and gave it to the nurse. Exam/Review of Systems Vital Signs Vitals Vital Signs Date Time Temp Pulse Resp B/P Pulse Ox O2 Delivery O2 Flow Rate FiO2 12/27/16 11:12 98.2 75 20 123/66 96 12/27/16 02:38 2.0 27 12/26/16 20:30 Nasal Cannula Intake and Output 12/26/16 12/26/16 12/27/16 15:00 23:00 07:00 Intake Total 550 ml 250 ml Output Total 300 ml 400 ml Balance 250 ml -150 ml Exam Constitutional: alert, oriented Psych: no complaints Head: normocephalic Eyes: nl conjunctiva Neck: supple Respiratory: clear to auscultation Cardiovascular: regular rate and rhythm Gastrointestinal: non-tender, soft Results Result Diagram: 12/27/16 0712 12/27/16 0712 Results 24 hrs Laboratory Tests Test 12/26/16 17:12 12/26/16 21:33 12/26/16 23:55 12/27/16 05:21 Bedside Glucose 212 262 H 236 H 198 Test 12/27/16 07:12 White Blood Count 12.9 #H Red Blood Count 3.77 L Hemoglobin 11.0 L Hematocrit 34.3 L Mean Corpuscular Volume 91.0 Mean Corpuscular Hemoglobin 29.2 Mean Corpuscular Hemoglobin Concent 32.1 Red Cell Distribution Width 17.9 H Platelet Count 185 # Mean Platelet Volume 13.8 H Neutrophils % 69.9 Lymphocytes % 7.6 L Monocytes % 8.4 Eosinophils % 1.6 Basophils % 0.7 Nucleated Red Blood Cells % 0.5 H Neutrophils # 9.0 H Lymphocytes # 1.0 Monocytes # 1.1 H Eosinophils # 0.2 Basophils # 0.1 Nucleated Red Blood Cells # 0.1 H Sodium Level 130 L Potassium Level 4.0 Chloride Level 101 Carbon Dioxide Level 16 L Anion Gap 17 H Blood Urea Nitrogen 59 H Creatinine 4.17 H Glucose Level 172 Calcium Level 6.8 L Phosphorus Level 4.3 Magnesium Level 2.0 Medications Medications Current Medications Ondansetron HCl (Zofran Inj) 4 mg Q6H PRN IV NAUSEA AND/OR VOMITING; Start at 16:00 Bisacodyl (Dulcolax Supp) 10 mg DAILY PRN [place] CONSTIPATION; Start 12/16/16 at 16 :00 Heparin Sodium (Porcine) (Heparin (5000 Units/0.5 ml)) 5,000 unit Q12 SC Last administered on 12/26/16 21:53; Admin Dose 5,000 UNIT; Start 12/16/16 at 21:00 Miscellaneous Information 1 ea NOTE XX ; Start 12/16/16 at 18:00 Glucose (Glutose) 15 gm Q15M PRN PO DECREASED GLUCOSE; Start 12/16/16 at 18:00 Glucose (Glutose) 22.5 gm Q15M PRN PO DECREASED GLUCOSE; Start 12/16/16 at 18: 00 Dextrose (D50w Syringe) 25 ml Q15M PRN IV DECREASED GLUCOSE; Start 12/16/16 at 18:00 Dextrose (D50w Syringe) 50 ml Q15M PRN IV DECREASED GLUCOSE; Start 12/16/16 at 18:00 Glucagon (Glucagen) 1 mg Q15M PRN IM DECREASED GLUCOSE; Start 12/16/16 at 18:00 Glucose (Glutose) 15 gm Q15M PRN BUCCAL DECREASED GLUCOSE; Start 12/16/16 at 18 :00 Insulin Aspart (Novolog Insulin Pen) (Adult SC Insulin - Moder... Q6 SC Last administered on 12/27/16 06:29; Admin Dose 4 UNIT; Start 12/17/16 at 00:00 Morphine Sulfate (morphine) 1 mg Q4H PRN IV PAIN LEVEL 1-5; Start 12/20/16 at 11:30 Nitroglycerin (Nitroglycerin (Sl Tab) 0.4 Mg) 1 tab Q5M PRN SL ANGINA Last administered on 12/21/16 01:06; Admin Dose 1 TAB; Start 12/21/16 at 00:30 Clopidogrel Bisulfate (plaVIX) 75 mg DAILY PO Last administered on 12/26/16 08: 37; Admin Dose 75 MG; Start 12/22/16 at 09:00 Ondansetron HCl (Zofran Inj) 4 mg Q4H PRN IV NAUSEA AND/OR VOMITING; Start at 12:00 Zolpidem Tartrate (Ambien) 5 mg HS PRN PO INSOMNIA Last administered on 20:32; Admin Dose 5 MG; Start 12/22/16 at 22:00 Atorvastatin Calcium (Lipitor) 40 mg HS PO Last administered on 12/26/16 21:35 ; Admin Dose 40 MG; Start 12/23/16 at 21:00 Amiodarone HCl (Cordarone) 200 mg BID PO Last administered on 12/26/16 21:35; Admin Dose 200 MG; Start 12/24/16 at 09:00 Hydralazine HCl (Apresoline) 10 mg Q6H PRN IV ELEVATED BLOOD PRESSURE; Start at 08:00 Aspirin (Halfprin) 81 mg DAILY PO Last administered on 12/26/16 08:37; Admin Dose 81 MG; Start 12/25/16 at 09:00 Multivit/Ca Carb/ B Cmplx/FA/Prenat (Nadiya-Ozzie) 1 tab DAILY PO Last administered on 12/26/16 08:37; Admin Dose 1 TAB; Start 12/25/16 at 09:00 Acetaminophen (Tylenol Tab) 650 mg Q6H PRN PO PAIN AND OR ELEVATED TEMP; Start 12/25/16 at 08:30 Docusate Sodium (Colace) 200 mg DAILY PO Last administered on 12/26/16 08:37; Admin Dose 200 MG; Start 12/25/16 at 09:00 Levothyroxine Sodium (Synthroid) 75 mcg DAILY@06 PO Last administered on 06:29; Admin Dose 75 MCG; Start 12/27/16 at 06:00 Metoprolol Succinate (Toprol Xl) 50 mg BID PO Last administered on 12/26/16 21: 35; Admin Dose 50 MG; Start 12/26/16 at 09:00 Pantoprazole (Protonix Tab) 40 mg AM PO Last administered on 12/26/16 09:04; Admin Dose 40 MG; Start 12/26/16 at 09:00 Patient Own Medication 1 ea BID PO ; Start 12/26/16 at 09:00; Status UNV Insulin Glargine (Lantus) 10 unit DAILY@20 SC Last administered on 12/26/16 21: 53; Admin Dose 10 UNIT; Start 12/26/16 at 20:00 Guaifenesin/ Dextromethorphan (Robitussin Dm Liquid Cup) 10 ml QID PRN PO cough Last administered on 12/26/16 21:36; Admin Dose 10 ML; Start 12/26/16 at 10 :30 Miscellaneous Information (*Order Clarification Bulletin) jakafi 5 mg:FAMILY TO BRING... Q8H XX ; Start 12/27/16 at 10:00 JULIANNE RIOS MD Dec 27, 2016 11:45
--- NOTE | 2016-12-27 12:44 | PN ---
Date/Time of Note Date/Time of Note DATE: 12/27/16 TIME: 12:40 Assessment/Plan VTE Prophylaxis VTE Prophylaxis Intervention: other (0091) Lines/Catheters IV Catheter Type (from Nrs): Saline Lock Urinary Cath still in place: No Assessment/Plan Assessment/Plan 1. Acute and chronic renal failure 2. CHF is still present, will HD today 3. Anemia is stable 4. Diarrhea, abx stopped will ck c diff 5. Anxiety, will add xanax prn 6. Know myelofibrosis, Jakafi resumed after rev with hematology Subjective 24 Hr Interval Summary Respiratory: cough (is not productive), shortness of breath (persits and pnd) Cardiovascular: No chest pain Gastrointestinal: other (frequent loose stools), No pain, No vomiting Genitourinary: no complaints Exam/Review of Systems Vital Signs Vitals Vital Signs Date Time Temp Pulse Resp B/P Pulse Ox O2 Delivery O2 Flow Rate FiO2 12/27/16 11:12 98.2 75 20 123/66 96 12/27/16 02:38 2.0 27 12/26/16 20:30 Nasal Cannula Intake and Output 12/26/16 12/26/16 12/27/16 15:00 23:00 07:00 Intake Total 550 ml 250 ml Output Total 300 ml 400 ml Balance 250 ml -150 ml Exam Neck: jvd (is present) Respiratory: crackles/rales (are present bilat), diminished breath sounds Cardiovascular: S4, regular rate and rhythm, rub, No S3 Gastrointestinal: soft Extremities: other (cool bilat, pop pulses are present, no calf tend) Results Result Diagram: 12/27/16 0712 12/27/16 0712 Results 24 hrs Laboratory Tests Test 12/26/16 17:12 12/26/16 21:33 12/26/16 23:55 12/27/16 05:21 Bedside Glucose 212 262 H 236 H 198 Test 12/27/16 07:12 White Blood Count 12.9 #H Red Blood Count 3.77 L Hemoglobin 11.0 L Hematocrit 34.3 L Mean Corpuscular Volume 91.0 Mean Corpuscular Hemoglobin 29.2 Mean Corpuscular Hemoglobin Concent 32.1 Red Cell Distribution Width 17.9 H Platelet Count 185 # Mean Platelet Volume 13.8 H Neutrophils % 69.9 Lymphocytes % 7.6 L Monocytes % 8.4 Eosinophils % 1.6 Basophils % 0.7 Nucleated Red Blood Cells % 0.5 H Neutrophils # 9.0 H Lymphocytes # 1.0 Monocytes # 1.1 H Eosinophils # 0.2 Basophils # 0.1 Nucleated Red Blood Cells # 0.1 H Sodium Level 130 L Potassium Level 4.0 Chloride Level 101 Carbon Dioxide Level 16 L Anion Gap 17 H Blood Urea Nitrogen 59 H Creatinine 4.17 H Glucose Level 172 Calcium Level 6.8 L Phosphorus Level 4.3 Magnesium Level 2.0 Medications Medications Current Medications Ondansetron HCl (Zofran Inj) 4 mg Q6H PRN IV NAUSEA AND/OR VOMITING; Start at 16:00 Bisacodyl (Dulcolax Supp) 10 mg DAILY PRN [place] CONSTIPATION; Start 12/16/16 at 16 :00 Heparin Sodium (Porcine) (Heparin (5000 Units/0.5 ml)) 5,000 unit Q12 SC Last administered on 12/26/16 21:53; Admin Dose 5,000 UNIT; Start 12/16/16 at 21:00 Miscellaneous Information 1 ea NOTE XX ; Start 12/16/16 at 18:00 Glucose (Glutose) 15 gm Q15M PRN PO DECREASED GLUCOSE; Start 12/16/16 at 18:00 Glucose (Glutose) 22.5 gm Q15M PRN PO DECREASED GLUCOSE; Start 12/16/16 at 18: 00 Dextrose (D50w Syringe) 25 ml Q15M PRN IV DECREASED GLUCOSE; Start 12/16/16 at 18:00 Dextrose (D50w Syringe) 50 ml Q15M PRN IV DECREASED GLUCOSE; Start 12/16/16 at 18:00 Glucagon (Glucagen) 1 mg Q15M PRN IM DECREASED GLUCOSE; Start 12/16/16 at 18:00 Glucose (Glutose) 15 gm Q15M PRN BUCCAL DECREASED GLUCOSE; Start 12/16/16 at 18 :00 Insulin Aspart (Novolog Insulin Pen) (Adult SC Insulin - Moder... Q6 SC Last administered on 12/27/16 06:29; Admin Dose 4 UNIT; Start 12/17/16 at 00:00 Morphine Sulfate (morphine) 1 mg Q4H PRN IV PAIN LEVEL 1-5; Start 12/20/16 at 11:30 Nitroglycerin (Nitroglycerin (Sl Tab) 0.4 Mg) 1 tab Q5M PRN SL ANGINA Last administered on 12/21/16 01:06; Admin Dose 1 TAB; Start 12/21/16 at 00:30 Clopidogrel Bisulfate (plaVIX) 75 mg DAILY PO Last administered on 12/26/16 08: 37; Admin Dose 75 MG; Start 12/22/16 at 09:00 Ondansetron HCl (Zofran Inj) 4 mg Q4H PRN IV NAUSEA AND/OR VOMITING; Start at 12:00 Zolpidem Tartrate (Ambien) 5 mg HS PRN PO INSOMNIA Last administered on 20:32; Admin Dose 5 MG; Start 12/22/16 at 22:00 Atorvastatin Calcium (Lipitor) 40 mg HS PO Last administered on 12/26/16 21:35 ; Admin Dose 40 MG; Start 12/23/16 at 21:00 Amiodarone HCl (Cordarone) 200 mg BID PO Last administered on 12/26/16 21:35; Admin Dose 200 MG; Start 12/24/16 at 09:00 Hydralazine HCl (Apresoline) 10 mg Q6H PRN IV ELEVATED BLOOD PRESSURE; Start at 08:00 Aspirin (Halfprin) 81 mg DAILY PO Last administered on 12/26/16 08:37; Admin Dose 81 MG; Start 12/25/16 at 09:00 Multivit/Ca Carb/ B Cmplx/FA/Prenat (Nadiya-Ozzie) 1 tab DAILY PO Last administered on 12/26/16 08:37; Admin Dose 1 TAB; Start 12/25/16 at 09:00 Acetaminophen (Tylenol Tab) 650 mg Q6H PRN PO PAIN AND OR ELEVATED TEMP; Start 12/25/16 at 08:30 Docusate Sodium (Colace) 200 mg DAILY PO Last administered on 12/26/16 08:37; Admin Dose 200 MG; Start 12/25/16 at 09:00 Levothyroxine Sodium (Synthroid) 75 mcg DAILY@06 PO Last administered on 06:29; Admin Dose 75 MCG; Start 12/27/16 at 06:00 Metoprolol Succinate (Toprol Xl) 50 mg BID PO Last administered on 12/26/16 21: 35; Admin Dose 50 MG; Start 12/26/16 at 09:00 Pantoprazole (Protonix Tab) 40 mg AM PO Last administered on 12/26/16 09:04; Admin Dose 40 MG; Start 12/26/16 at 09:00 Patient Own Medication 1 ea BID PO ; Start 12/26/16 at 09:00; Status UNV Insulin Glargine (Lantus) 10 unit DAILY@20 SC Last administered on 12/26/16 21: 53; Admin Dose 10 UNIT; Start 12/26/16 at 20:00 Guaifenesin/ Dextromethorphan (Robitussin Dm Liquid Cup) 10 ml QID PRN PO cough Last administered on 12/26/16 21:36; Admin Dose 10 ML; Start 12/26/16 at 10 :30 Miscellaneous Information (*Order Clarification Bulletin) jakafi 5 mg:FAMILY TO BRING... Q8H XX ; Start 12/27/16 at 10:00 JULIANNE ESTRELLA MD Dec 27, 2016 12:44
[2016-12-27] MEDS: RUXOLITINIB 5 MG PO SCH ×2 (13:00→22:04)
--- NOTE | 2016-12-27 13:01 | PN ---
Date/Time of Note Date/Time of Note DATE: 12/26/16 TIME: 12:59 Assessment/Plan Lines/Catheters IV Catheter Type (from Nrsg): Saline Lock Marcum in Place (from Nrsg): No Assessment/Plan Assessment/Plan [facility] Progress Note (late entry) Date of Service: 12/26/16 Today's Impression & Plan: Overall stable and improved. Abd continues to be benign. + bowel function and tolerating regular diet. No indication for acute surgical intervention for his abdomen. With above assessment, I've recommended the following for today: 1. Continue to regular as tolerated 2. Increase activity 3. Cont medical cares Thank you again for your great care of this very pleasant patient and wonderful family. If there are any questions, please feel free to call me at [phone]. TOTAL VISIT TIME: 20 minutes of which more than half was spent in [id number] discussion with the patient, possibly including family, as well as coordination of care between multiple physicians and providers. Disclaimer: Inadvertent spelling or grammatical errors are likely due to EHR/ dictation software use and do not reflect on the overall quality of patient care. Updated Clinical Summary: The patient is a very pleasant 81-year-old gentleman with comorbidities including BMI 25.6 and prior appendectomy as well as coronary artery disease status post bypass grafting, presenting to [facility] through the emergency department with abdominal pain, nausea, and vomiting. Cardiac event (? arrhythmia with rise in troponin) morning hours on 12/21/16 requiring intubation and transfer to ICU. Extubated 12/22/16. Renal function deteriorated through 12/24/16. COMORBIDITIES: 1. BMI 25.6. 2. Status post coronary artery bypass graft surgery. 3. Status post appendectomy. 4. Hypertension. 5. Hypothyroidism. 6. Dyslipidemia. 7. Myelofibrosis. 8. Colon polyps. 9. Diverticulosis. 10. Diabetes. 11. Cardiac event am 12/21/16 requiring intubation and transfer to ICU at [facility]; extubated 12/22/16 Subjective: No major events or complaints overnight. Feels ok. No abd pain. No nausea or vomiting. + bowel activity. min activity. no further issues with bloody nose. Objective: Vitals: See below Exam: GENERAL: On exam, the patient was laying in bed and appeared to be comfortable and in no acute distress. ABDOMEN: Soft, nontender and nondistended. There are no peritoneal signs or guarding. SKIN: Skin appears to be pink and feels warm to touch. NEUROLOGIC: Awake, alert and follows commands appropriately. Exam/Review of Systems Vital Signs Vitals Vital Signs Date Time Temp Pulse Resp B/P Pulse Ox O2 Delivery O2 Flow Rate FiO2 12/27/16 12:44 77 12/27/16 11:12 98.2 20 123/66 96 12/27/16 02:38 2.0 27 12/26/16 20:30 Nasal Cannula Intake and Output 12/26/16 12/26/16 12/27/16 15:00 23:00 07:00 Intake Total 550 ml 250 ml Output Total 300 ml 400 ml Balance 250 ml -150 ml Results Result Diagram: 12/27/16 0712 12/27/16 0712 JUMANA MONTANA M.D. Dec 27, 2016 13:01
--- NOTE | 2016-12-27 13:02 | PN ---
Date/Time of Note Date/Time of Note DATE: 12/27/16 TIME: 13:01 Assessment/Plan Lines/Catheters IV Catheter Type (from Nrs): Saline Lock Marcum in Place (from Nrs): No Assessment/Plan Assessment/Plan [facility] Progress Note Date of Service: 12/27/16 Today's Impression & Plan: Overall stable and improved. Abd continues to be benign. + bowel function and tolerating regular diet. No indication for acute surgical intervention for his abdomen. Tolerating a regular diet. With above assessment, I've recommended the following for today: 1. Continue regular diet 2. Increase activity 3. Cont medical cares 4. Will sign off official chart, but will follow from periphery Thank you again for your great care of this very pleasant patient and wonderful family. If there are any questions, please feel free to call me at [phone]. TOTAL VISIT TIME: 20 minutes of which more than half was spent in [id number] discussion with the patient, possibly including family, as well as coordination of care between multiple physicians and providers. Disclaimer: Inadvertent spelling or grammatical errors are likely due to EHR/ dictation software use and do not reflect on the overall quality of patient care. Updated Clinical Summary: The patient is a very pleasant 81-year-old gentleman with comorbidities including BMI 25.6 and prior appendectomy as well as coronary artery disease status post bypass grafting, presenting to [facility] through the emergency department with abdominal pain, nausea, and vomiting. Cardiac event (? arrhythmia with rise in troponin) morning hours on 12/21/16 requiring intubation and transfer to ICU. Extubated 12/22/16. Renal function deteriorated through 12/24/16. COMORBIDITIES: 1. BMI 25.6. 2. Status post coronary artery bypass graft surgery. 3. Status post appendectomy. 4. Hypertension. 5. Hypothyroidism. 6. Dyslipidemia. 7. Myelofibrosis. 8. Colon polyps. 9. Diverticulosis. 10. Diabetes. 11. Cardiac event am 12/21/16 requiring intubation and transfer to ICU at [facility]; extubated 12/22/16 Subjective: No major events or complaints overnight. Feels ok. No abd pain. No nausea or vomiting. + bowel activity. min activity. Objective: Vitals: See below Exam: GENERAL: On exam, the patient was laying in bed and appeared to be comfortable and in no acute distress. ABDOMEN: Soft, nontender and nondistended. There are no peritoneal signs or guarding. SKIN: Skin appears to be pink and feels warm to touch. NEUROLOGIC: Awake, alert and follows commands appropriately. Exam/Review of Systems Vital Signs Vitals Vital Signs Date Time Temp Pulse Resp B/P Pulse Ox O2 Delivery O2 Flow Rate FiO2 12/27/16 12:44 77 12/27/16 11:12 98.2 20 123/66 96 12/27/16 02:38 2.0 27 12/26/16 20:30 Nasal Cannula Intake and Output 12/26/16 12/26/16 12/27/16 15:00 23:00 07:00 Intake Total 550 ml 250 ml Output Total 300 ml 400 ml Balance 250 ml -150 ml Results Result Diagram: 12/27/16 0712 12/27/16 0712 JUMANA MONTANA M.D. Dec 27, 2016 13:02
[2016-12-27] MEDS: ALPRAZOLAM 0.25 MG TAB PO SCH ×2 (13:21→22:00)
[2016-12-27 14:05] LABS: ADD UMIC YES; URINE BILIRUBIN (Dip) NEGATIVE (NEGATIVE); URINE BLOOD (Dip) 1+ (NEGATIVE); URINE COLOR LT. YELLOW (YELLOW); URINE GLUCOSE (Dip) NEGATIVE (NEGATIVE); URINE KETONES (Dip) NEGATIVE (NEGATIVE); URINE LEUKOCYTE ESTERASE (Dip) NEGATIVE (NEGATIVE); URINE NITRITE (Dip) NEGATIVE (NEGATIVE); URINE TOTAL PROTEIN (Dip) TRACE (NEGATIVE); URINE UROBILINOGEN (Dip) 0.2 E.U./dL (0.1-1.0)
[2016-12-27 14:16] LABS: BACTERIA,URINE FEW
[2016-12-27] MEDS: ATORVASTATIN 40 MG TAB PO SCH ×2 (22:00→22:03)
[2016-12-27] MEDS: INSULIN GLARGINE [LANtus] 3 ML PEN SC SCH (22:39)
[2016-12-28] VITALS (11 sets, daily range): BP systolic 134–153; BP diastolic 61–74; PULSE 64–82; RESP 17–20
[2016-12-28] MEDS: Insulin NOVOLOG SS MODERATE Algorithm(NPO/TPN/ENTERAL FEEDS) SC SCH (00:22)
[2016-12-28] MEDS: LEVALBUTEROL (NEB) 0.31 MG/3 ML AMP HHN SCH ×5 (02:00→20:00)
[2016-12-28] MEDS: ACCU-CHEK XX SCH (02:00)
[2016-12-28] MEDS: IPRATROPIUM (NEB) 0.5 MG/2.5 ML AMP HHN SCH ×4 (03:26→20:00)
[2016-12-28 06:00] LABS: ADD SCAN DIFF NO
[2016-12-28] MEDS: LEVOTHYROXINE 75 MCG TAB PO SCH (06:00)
[2016-12-28 06:18] LABS: ABNORMAL IP MESSAGE 1; BASOPHIL # 0.1 10^3/ul (0.0-0.1); BASOPHILS % 0.5 % (0.0-2.0); EOSINOPHILS # 0.3 10^3/ul (0.0-0.5); HEMATOCRIT 31.5 % (42.0-52.0); HEMOGLOBIN 10.1 g/dl (14.0-18.0); LYMPHOCYTES # 1.1 10^3/ul (0.8-2.9); LYMPHOCYTES % 10.7 % (15.0-51.0); MEAN CORPUSCULAR HEMOGLOBIN 29.1 pg (29.0-33.0); MEAN CORPUSCULAR HGB CONC 32.1 g/dl (32.0-37.0); MEAN CORPUSCULAR VOLUME 90.8 fl (82.0-101.0); MEAN PLATELET VOLUME 13.2 fl (7.4-10.4); MONOCYTE # 0.8 10^3/ul (0.3-0.9); MONOCYTES % 8.2 % (0.0-11.0); NEUTROPHIL # 6.5 10^3/ul (1.6-7.5); NEUTROPHILS % 66.4 % (39.0-77.0); NUCLEATED RED BLOOD CELLS # 0.1 10^3/ul (0.0-0.0); PLATELET COUNT 160 10^3/UL (140-415); RED BLOOD COUNT 3.47 10^6/ul (4.70-6.10); RED CELL DISTRIBUTION WIDTH 17.7 % (11.5-14.5); WHITE BLOOD COUNT 9.8 10^3/ul (4.8-10.8)
[2016-12-28 07:01] LABS: POTASSIUM 3.6 mmol/L (3.5-5.1)
[2016-12-28 07:04] LABS: CREATININE 3.57 mg/dl (0.61-1.24)
[2016-12-28 07:04] LABS: PHOSPHORUS 3.6 mg/dl (2.5-4.9)
[2016-12-28 07:05] LABS: CALCIUM 7.3 mg/dl (8.4-10.2)
--- NOTE | 2016-12-28 07:15 | CONS ---
Date/Time of Note Date/Time of Note DATE: 12/28/16 TIME: 07:13 Assessment/Plan Assessment/Plan Chief Complaint/Hosp Course 1) s/p IA with severe cardiac disease currently asymptomatic 2) CRI with progression and requiring HD will check u/a and urine cx to verify no UTI 4/5 - u/a shows minimal wbc, but has hematuria robles is out doubt active UTI 12/28 - urine cx was neg continue off antibiotics no symptoms for UTI 3) CHF secondary to poor cardiac function no elevation of WBC, no fever doubt pt has pneumonia will likely d/c zosyn soon procalcitonin not helpful in light of his renal status / - WBC remains good and platelets are better doubt active pneumonia will d/c zosyn / - off antibiotics for 48 hours and WBC is normal no fever, no progression of symptoms continue off antibiotics I will sign off, thank you 4) Myelofibrosis Problems: Consultation Date/Type/Reason Admit Date/Time Dec 16, 2016 at 17:40 Initial Consult Date 12/21/16 Type of Consultation: ID Referring Provider: JULIANNE ESTRELLA MD 24 HR Interval Summary Free Text/Dictation pt states breathing has been ok, still with occasional cough, mostly dry no N, V, D. no CP, abd pain Exam/Review of Systems Vital Signs Vitals Vital Signs Date Time Temp Pulse Resp B/P Pulse Ox O2 Delivery O2 Flow Rate FiO2 12/28/16 04:43 70 12/28/16 03:47 97.9 17 149/70 91 12/28/16 03:41 2.0 27 12/27/16 20:30 Nasal Cannula Intake and Output 12/27/16 12/27/16 12/28/16 15:00 23:00 07:00 Intake Total 500 ml 200 ml Output Total 3500 ml 450 ml Balance -3000 ml -250 ml Exam Constitutional: alert, oriented Head: normocephalic Eyes: nl sclera ENMT: mucosa pink and moist Neck: supple Respiratory: other (bibasilar rales,1/2 way up lungs) Cardiovascular: regular rate and rhythm Gastrointestinal: non-tender, soft Extremities: other (trace edema) Results Result Diagram: 12/28/16 0530 12/28/16 0530 Results 24 hrs Laboratory Tests Test 12/27/16 12:53 12/27/16 18:19 12/27/16 21:57 12/28/16 02:53 Bedside Glucose 195 175 231 H Phosphorus Level 3.6 Magnesium Level 2.0 Test 12/28/16 05:30 White Blood Count 9.8 # Red Blood Count 3.47 L Hemoglobin 10.1 L Hematocrit 31.5 L Mean Corpuscular Volume 90.8 Mean Corpuscular Hemoglobin 29.1 Mean Corpuscular Hemoglobin Concent 32.1 Red Cell Distribution Width 17.7 H Platelet Count 160 Mean Platelet Volume 13.2 H Neutrophils % 66.4 Lymphocytes % 10.7 L Monocytes % 8.2 Eosinophils % 3.0 Basophils % 0.5 Nucleated Red Blood Cells % 1.0 H Neutrophils # 6.5 Lymphocytes # 1.1 Monocytes # 0.8 Eosinophils # 0.3 Basophils # 0.1 Nucleated Red Blood Cells # 0.1 H Sodium Level 137 Potassium Level 3.6 Chloride Level 100 Carbon Dioxide Level 23 Anion Gap 18 H Blood Urea Nitrogen 48 #H Creatinine 3.57 H Glucose Level 145 Calcium Level 7.3 L Medications Medications Current Medications Ondansetron HCl (Zofran Inj) 4 mg Q6H PRN IV NAUSEA AND/OR VOMITING; Start at 16:00 Bisacodyl (Dulcolax Supp) 10 mg DAILY PRN [place] CONSTIPATION; Start 12/16/16 at 16 :00 Heparin Sodium (Porcine) (Heparin (5000 Units/0.5 ml)) 5,000 unit Q12 SC Last administered on 12/26/16t 21:53; Admin Dose 5,000 UNIT; Start 12/16/16 at 21:00 Miscellaneous Information 1 ea NOTE XX ; Start 12/16/16 at 18:00 Glucose (Glutose) 15 gm Q15M PRN PO DECREASED GLUCOSE; Start 12/16/16 at 18:00 Glucose (Glutose) 22.5 gm Q15M PRN PO DECREASED GLUCOSE; Start 12/16/16 at 18: 00 Dextrose (D50w Syringe) 25 ml Q15M PRN IV DECREASED GLUCOSE; Start 12/16/16 at 18:00 Dextrose (D50w Syringe) 50 ml Q15M PRN IV DECREASED GLUCOSE; Start 12/16/16 at 18:00 Glucagon (Glucagen) 1 mg Q15M PRN IM DECREASED GLUCOSE; Start 12/16/16 at 18:00 Glucose (Glutose) 15 gm Q15M PRN BUCCAL DECREASED GLUCOSE; Start 12/16/16 at 18 :00 Morphine Sulfate (morphine) 1 mg Q4H PRN IV PAIN LEVEL 1-5; Start 12/20/16 at 11:30 Nitroglycerin (Nitroglycerin (Sl Tab) 0.4 Mg) 1 tab Q5M PRN SL ANGINA Last administered on 12/21/16 01:06; Admin Dose 1 TAB; Start 12/21/16 at 00:30 Clopidogrel Bisulfate (plaVIX) 75 mg DAILY PO Last administered on 12/27/16 13: 15; Admin Dose 75 MG; Start 12/22/16 at 09:00 Ondansetron HCl (Zofran Inj) 4 mg Q4H PRN IV NAUSEA AND/OR VOMITING; Start at 12:00 Zolpidem Tartrate (Ambien) 5 mg HS PRN PO INSOMNIA Last administered on 20:32; Admin Dose 5 MG; Start 12/22/16 at 22:00 Atorvastatin Calcium (Lipitor) 40 mg HS PO Last administered on 12/27/16 22:03 ; Admin Dose 40 MG; Start 12/23/16 at 21:00 Amiodarone HCl (Cordarone) 200 mg BID PO Last administered on 12/27/16 23:55; Admin Dose 200 MG; Start 12/24/16 at 09:00 Hydralazine HCl (Apresoline) 10 mg Q6H PRN IV ELEVATED BLOOD PRESSURE; Start at 08:00 Aspirin (Halfprin) 81 mg DAILY PO Last administered on 12/27/16 13:15; Admin Dose 81 MG; Start 12/25/16 at 09:00 Multivit/Ca Carb/ B Cmplx/FA/Prenat (Nadiya-Ozzie) 1 tab DAILY PO Last administered on 12/26/16 08:37; Admin Dose 1 TAB; Start 12/25/16 at 09:00 Acetaminophen (Tylenol Tab) 650 mg Q6H PRN PO PAIN AND OR ELEVATED TEMP; Start 12/25/16 at 08:30 Docusate Sodium (Colace) 200 mg DAILY PO Last administered on 12/26/16 08:37; Admin Dose 200 MG; Start 12/25/16 at 09:00 Levothyroxine Sodium (Synthroid) 75 mcg DAILY@06 PO Last administered on 06:29; Admin Dose 75 MCG; Start 12/27/16 at 06:00 Metoprolol Succinate (Toprol Xl) 50 mg BID PO Last administered on 12/27/16 23: 56; Admin Dose 50 MG; Start 12/26/16 at 09:00 Pantoprazole (Protonix Tab) 40 mg AM PO Last administered on 12/27/16 13:16; Admin Dose 40 MG; Start 12/26/16 at 09:00 Patient Own Medication 1 ea BID PO Last administered on 12/27/16 22:04; Admin Dose 1 EA; Start 12/27/16 at 13:00 Insulin Glargine (Lantus) 10 unit DAILY@20 SC Last administered on 12/27/16 22: 39; Admin Dose 10 UNIT; Start 12/26/16 at 20:00 Guaifenesin/ Dextromethorphan (Robitussin Dm Liquid Cup) 10 ml QID PRN PO cough Last administered on 12/26/16 21:36; Admin Dose 10 ML; Start 12/26/16 at 10 :30 Alprazolam (Xanax) 0.25 mg BID PO Last administered on 12/27/16 22:00; Admin Dose 0.25 MG; Start 12/27/16 at 12:30 Diagnostic Test (Pha) (Accu-Chek) 1 ea 02 XX ; Start 12/28/16 at 02:00 FAREED CASTELLANO MD Dec 28, 2016 07:15
[2016-12-28] MEDS: MULTIVIT/CA CARB/B CMPLX/FA TAB PO SCH (08:48)
[2016-12-28] MEDS: DOCUSATE SODIUM 100 MG CAP PO SCH (08:49)
[2016-12-28] MEDS: RUXOLITINIB 5 MG PO SCH ×2 (08:49→22:17)
[2016-12-28] MEDS: ALPRAZOLAM 0.25 MG TAB PO SCH ×2 (08:50→22:22)
[2016-12-28] MEDS: INSULIN ASPART [NOVOLOG] 3 ML PEN SC SCH ×4 (09:10→22:15)
[2016-12-28] MEDS: HEPARIN 5,000 UNIT/0.5 ML VIAL SC SCH ×2 (09:11→22:04)
--- NOTE | 2016-12-28 09:35 | RADRPT ---
PROCEDURE: XR Chest. CLINICAL INDICATION: Shortness of breath. TECHNIQUE: Single frontal view. COMPARISON: 12/25/2016. FINDINGS: There is bilateral interstitial pulmonary disease consistent with pulmonary edema, slightly improved . There is mild atelectasis at the lung bases. The lungs are otherwise clear. The heart is enlarged. There are sternal wires and mediastinal clips. Calcification is present in the aorta consistent with atherosclerosis. There is no pleural effusion. There is no pneumothorax. IMPRESSION: 1. Slightly improved pulmonary edema. 2. No other change from 12/25/2016. RPTAT: QQ .Ousmane Diallo MD, MD Date Time Electronically viewed and signed by .Ousmane Diallo MD, on 12/28/2016 09:35 .R/
--- NOTE | 2016-12-28 09:42 | CONS ---
Date/Time of Note Date/Time of Note DATE: 12/28/16 TIME: 09:33 Assessment/Plan Assessment/Plan Chief Complaint/Hosp Course #1 acute on chronic renal failure now on hemodialysis. I have ordered hemodialysis for tomorrow. It is not clear whether he will recover renal function. We'll check labs in the morning. 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 Problems: Consultation Date/Type/Reason Admit Date/Time Dec 16, 2016 at 17:40 Initial Consult Date 12/25/16 Type of Consultation: ID Referring Provider: JULIANNE ESTRELLA MD 24 HR Interval Summary Free Text/Dictation He says that he is feeling better. He is trying to do as much physical therapy as he can to get stronger. He denies any chest pain or shortness of breath. Constitutional: improved, no complaints Exam/Review of Systems Vital Signs Vitals Vital Signs Date Time Temp Pulse Resp B/P Pulse Ox O2 Delivery O2 Flow Rate FiO2 12/28/16 08:22 64 12/28/16 08:09 2.0 12/28/16 07:31 98.1 19 153/72 98 12/28/16 03:41 27 12/27/16 20:30 Nasal Cannula Intake and Output 12/27/16 12/27/16 12/28/16 15:00 23:00 07:00 Intake Total 500 ml 200 ml Output Total 3500 ml 450 ml Balance -3000 ml -250 ml Exam Constitutional: alert, oriented, well developed Respiratory: clear to auscultation, normal air movement Cardiovascular: regular rate and rhythm Gastrointestinal: soft Musculoskeletal: nl extremities to inspection Results Result Diagram: 12/28/16 0530 12/28/16 0530 Results 24 hrs Laboratory Tests Test 12/27/16 12:53 12/27/16 18:19 12/27/16 21:57 12/28/16 02:53 Bedside Glucose 195 175 231 H Phosphorus Level 3.6 Magnesium Level 2.0 Test 12/28/16 05:30 12/28/16 08:45 White Blood Count 9.8 # Red Blood Count 3.47 L Hemoglobin 10.1 L Hematocrit 31.5 L Mean Corpuscular Volume 90.8 Mean Corpuscular Hemoglobin 29.1 Mean Corpuscular Hemoglobin Concent 32.1 Red Cell Distribution Width 17.7 H Platelet Count 160 Mean Platelet Volume 13.2 H Neutrophils % 66.4 Lymphocytes % 10.7 L Monocytes % 8.2 Eosinophils % 3.0 Basophils % 0.5 Nucleated Red Blood Cells % 1.0 H Neutrophils # 6.5 Lymphocytes # 1.1 Monocytes # 0.8 Eosinophils # 0.3 Basophils # 0.1 Nucleated Red Blood Cells # 0.1 H Sodium Level 137 Potassium Level 3.6 Chloride Level 100 Carbon Dioxide Level 23 Anion Gap 18 H Blood Urea Nitrogen 48 #H Creatinine 3.57 H Glucose Level 145 Calcium Level 7.3 L Bedside Glucose 145 Medications Medications Current Medications Ondansetron HCl (Zofran Inj) 4 mg Q6H PRN IV NAUSEA AND/OR VOMITING; Start at 16:00 Bisacodyl (Dulcolax Supp) 10 mg DAILY PRN [place] CONSTIPATION; Start 12/16/16 at 16 :00 Heparin Sodium (Porcine) (Heparin (5000 Units/0.5 ml)) 5,000 unit Q12 SC Last administered on 12/28/16 09:11; Admin Dose 5,000 UNIT; Start 12/16/16 at 21:00 Miscellaneous Information 1 ea NOTE XX ; Start 12/16/16 at 18:00 Glucose (Glutose) 15 gm Q15M PRN PO DECREASED GLUCOSE; Start 12/16/16 at 18:00 Glucose (Glutose) 22.5 gm Q15M PRN PO DECREASED GLUCOSE; Start 12/16/16 at 18: 00 Dextrose (D50w Syringe) 25 ml Q15M PRN IV DECREASED GLUCOSE; Start 12/16/16 at 18:00 Dextrose (D50w Syringe) 50 ml Q15M PRN IV DECREASED GLUCOSE; Start 12/16/16 at 18:00 Glucagon (Glucagen) 1 mg Q15M PRN IM DECREASED GLUCOSE; Start 12/16/16 at 18:00 Glucose (Glutose) 15 gm Q15M PRN BUCCAL DECREASED GLUCOSE; Start 12/16/16 at 18 :00 Morphine Sulfate (morphine) 1 mg Q4H PRN IV PAIN LEVEL 1-5; Start 12/20/16 at 11:30 Nitroglycerin (Nitroglycerin (Sl Tab) 0.4 Mg) 1 tab Q5M PRN SL ANGINA Last administered on 12/21/16 01:06; Admin Dose 1 TAB; Start 12/21/16 at 00:30 Clopidogrel Bisulfate (plaVIX) 75 mg DAILY PO Last administered on 12/27/16 13: 15; Admin Dose 75 MG; Start 12/22/16 at 09:00 Ondansetron HCl (Zofran Inj) 4 mg Q4H PRN IV NAUSEA AND/OR VOMITING; Start at 12:00 Zolpidem Tartrate (Ambien) 5 mg HS PRN PO INSOMNIA Last administered on 20:32; Admin Dose 5 MG; Start 12/22/16 at 22:00 Atorvastatin Calcium (Lipitor) 40 mg HS PO Last administered on 12/27/16 22:03 ; Admin Dose 40 MG; Start 12/23/16 at 21:00 Amiodarone HCl (Cordarone) 200 mg BID PO Last administered on 12/27/16 23:55; Admin Dose 200 MG; Start 12/24/16 at 09:00 Hydralazine HCl (Apresoline) 10 mg Q6H PRN IV ELEVATED BLOOD PRESSURE; Start at 08:00 Aspirin (Halfprin) 81 mg DAILY PO Last administered on 12/27/16 13:15; Admin Dose 81 MG; Start 12/25/16 at 09:00 Multivit/Ca Carb/ B Cmplx/FA/Prenat (Nadiya-Ozzie) 1 tab DAILY PO Last administered on 12/28/16 08:48; Admin Dose 1 TAB; Start 12/25/16 at 09:00 Acetaminophen (Tylenol Tab) 650 mg Q6H PRN PO PAIN AND OR ELEVATED TEMP; Start 12/25/16 at 08:30 Docusate Sodium (Colace) 200 mg DAILY PO Last administered on 12/26/16 08:37; Admin Dose 200 MG; Start 12/25/16 at 09:00 Levothyroxine Sodium (Synthroid) 75 mcg DAILY@06 PO Last administered on 06:29; Admin Dose 75 MCG; Start 12/27/16 at 06:00 Metoprolol Succinate (Toprol Xl) 50 mg BID PO Last administered on 12/27/16 23: 56; Admin Dose 50 MG; Start 12/26/16 at 09:00 Pantoprazole (Protonix Tab) 40 mg AM PO Last administered on 12/27/16 13:16; Admin Dose 40 MG; Start 12/26/16 at 09:00 Patient Own Medication 1 ea BID PO Last administered on 12/28/16 08:49; Admin Dose 1 EA; Start 12/27/16 at 13:00 Insulin Glargine (Lantus) 10 unit DAILY@20 SC Last administered on 12/27/16 22: 39; Admin Dose 10 UNIT; Start 12/26/16 at 20:00 Guaifenesin/ Dextromethorphan (Robitussin Dm Liquid Cup) 10 ml QID PRN PO cough Last administered on 12/26/16 21:36; Admin Dose 10 ML; Start 12/26/16 at 10 :30 Alprazolam (Xanax) 0.25 mg BID PO Last administered on 12/28/16 08:50; Admin Dose 0.25 MG; Start 12/27/16 at 12:30 Diagnostic Test (Pha) (Accu-Chek) 1 ea 02 XX ; Start 12/28/16 at 02:00 SALEEM WALKER MD Dec 28, 2016 09:42
--- NOTE | 2016-12-28 10:11 | PN ---
DATE: 12/28/2016 HEMATOLOGY PROGRESS NOTE SUBJECTIVE: The patient states he is feeling well. He states he did have some hallucinations this morning, which he attributes to the use of zolpidem for sleep. Review of the records, however, states that last zolpidem was administered on 12/24/2016. The patient has resumed Jakafi. OBJECTIVE: VITAL SIGNS: Temperature 98.1, pulse 64 per minute, respirations 19, blood pressure 173/72, pulse oximetry is 98% on 2 liters of oxygen. SKIN: Scattered ecchymoses. No rashes. HEENT: Normocephalic. No evidence of trauma. Pupils equal, round, react to light and accommodation. Sclerae nonicteric. Oral mucosa is moist without lesions. Tongue is well papillated. No gingival hyperplasia. No hypertrophy of Waldeyer's ring. There is a nasal oxygen in place. NECK: Supple, no jugular venous distention or thyroid enlargement. CHEST: Clear to auscultation and percussion. No rhonchi, wheezes, rales or rubs. There is a sternotomy scar present. NODES: No palpable lymphadenopathy. HEART: Regular sinus rhythm, no S3, S4 or murmurs. ABDOMEN: Soft, no masses or ascites. EXTREMITIES: No clubbing, edema or cyanosis. No palpable cords or Homans sign. NEUROLOGIC: Normal. LABORATORY DATA: White count this morning 9800, hemoglobin 10.1, hematocrit 31.5 and platelet count 160,000. There are nucleated red blood cells seen in the peripheral smear. ASSESSMENT: 1. Myelofibrosis. 2. Coronary artery disease, status post myocardial infarction. 3. Small-bowel obstruction, resolved. The patient will continue on present dose of Jakafi 5 mg twice a day. No other hematologic recommendations at this time. Dictated By: DARNELL AMARAL MD SR/ROSANGELA Conf#: [id number] DID#: [id number] MTDD
--- NOTE | 2016-12-28 15:58 | CONS ---
Date/Time of Note Date/Time of Note DATE: 12/28/16 TIME: 15:56 Consult Date/Type/Reason Admit Date/Time Dec 16, 2016 at 17:40 Initial Consult Date 12/25/16 Type of Consultation: pulmonary Ordering Provider: JULIANNE ESTRELLA MD Subjective Comfortable this morning denies any shortness of breath Objective Vital Signs Date Time Temp Pulse Resp B/P Pulse Ox O2 Delivery O2 Flow Rate FiO2 12/28/16 15:06 2.0 12/28/16 12:06 98.2 65 19 141/61 98 12/28/16 08:30 Nasal Cannula 12/28/16 03:41 27 Intake and Output 12/27/16 12/27/16 12/28/16 15:00 23:00 07:00 Intake Total 500 ml 200 ml Output Total 3500 ml 450 ml Balance -3000 ml -250 ml Exam GENERAL: Elderly gentleman sitting up in chair comfortably at rest VITAL SIGNS: per chart NECK: Supple. No JVD or lymphadenopathy. CARDIAC EXAM: S1, S2. No added sounds or murmurs. CHEST: Diminished air entry both lung bases ABDOMEN: Soft, nontender. No guarding or rebound. EXTREMITIES: No cyanosis, clubbing or edema. NEUROLOGIC: Generalized weakness. No focal deficits. Results/Medications Result Diagram: 12/28/16 0530 12/28/16 0530 Results 24 hrs Laboratory Tests Test 12/27/16 18:19 12/27/16 21:57 12/28/16 02:53 12/28/16 05:30 Bedside Glucose 175 231 H Phosphorus Level 3.6 Magnesium Level 2.0 White Blood Count 9.8 # Red Blood Count 3.47 L Hemoglobin 10.1 L Hematocrit 31.5 L Mean Corpuscular Volume 90.8 Mean Corpuscular Hemoglobin 29.1 Mean Corpuscular Hemoglobin Concent 32.1 Red Cell Distribution Width 17.7 H Platelet Count 160 Mean Platelet Volume 13.2 H Neutrophils % 66.4 Lymphocytes % 10.7 L Monocytes % 8.2 Eosinophils % 3.0 Basophils % 0.5 Nucleated Red Blood Cells % 1.0 H Neutrophils # 6.5 Lymphocytes # 1.1 Monocytes # 0.8 Eosinophils # 0.3 Basophils # 0.1 Nucleated Red Blood Cells # 0.1 H Sodium Level 137 Potassium Level 3.6 Chloride Level 100 Carbon Dioxide Level 23 Anion Gap 18 H Blood Urea Nitrogen 48 #H Creatinine 3.57 H Glucose Level 145 Calcium Level 7.3 L Test 12/28/16 08:45 12/28/16 12:26 Bedside Glucose 145 195 Medications Current Medications Ondansetron HCl (Zofran Inj) 4 mg Q6H PRN IV NAUSEA AND/OR VOMITING; Start at 16:00 Bisacodyl (Dulcolax Supp) 10 mg DAILY PRN [place] CONSTIPATION; Start 12/16/16 at 16 :00 Heparin Sodium (Porcine) (Heparin (5000 Units/0.5 ml)) 5,000 unit Q12 SC Last administered on 12/28/16 09:11; Admin Dose 5,000 UNIT; Start 12/16/16 at 21:00 Miscellaneous Information 1 ea NOTE XX ; Start 12/16/16 at 18:00 Glucose (Glutose) 15 gm Q15M PRN PO DECREASED GLUCOSE; Start 12/16/16 at 18:00 Glucose (Glutose) 22.5 gm Q15M PRN PO DECREASED GLUCOSE; Start 12/16/16 at 18: 00 Dextrose (D50w Syringe) 25 ml Q15M PRN IV DECREASED GLUCOSE; Start 12/16/16 at 18:00 Dextrose (D50w Syringe) 50 ml Q15M PRN IV DECREASED GLUCOSE; Start 12/16/16 at 18:00 Glucagon (Glucagen) 1 mg Q15M PRN IM DECREASED GLUCOSE; Start 12/16/16 at 18:00 Glucose (Glutose) 15 gm Q15M PRN BUCCAL DECREASED GLUCOSE; Start 12/16/16 at 18 :00 Morphine Sulfate (morphine) 1 mg Q4H PRN IV PAIN LEVEL 1-5; Start 12/20/16 at 11:30 Nitroglycerin (Nitroglycerin (Sl Tab) 0.4 Mg) 1 tab Q5M PRN SL ANGINA Last administered on 12/21/16 01:06; Admin Dose 1 TAB; Start 12/21/16 at 00:30 Clopidogrel Bisulfate (plaVIX) 75 mg DAILY PO Last administered on 12/27/16 13: 15; Admin Dose 75 MG; Start 12/22/16 at 09:00 Ondansetron HCl (Zofran Inj) 4 mg Q4H PRN IV NAUSEA AND/OR VOMITING; Start at 12:00 Zolpidem Tartrate (Ambien) 5 mg HS PRN PO INSOMNIA Last administered on 20:32; Admin Dose 5 MG; Start 12/22/16 at 22:00 Atorvastatin Calcium (Lipitor) 40 mg HS PO Last administered on 12/27/16 22:03 ; Admin Dose 40 MG; Start 12/23/16 at 21:00 Amiodarone HCl (Cordarone) 200 mg BID PO Last administered on 12/27/16 23:55; Admin Dose 200 MG; Start 12/24/16 at 09:00 Hydralazine HCl (Apresoline) 10 mg Q6H PRN IV ELEVATED BLOOD PRESSURE; Start at 08:00 Aspirin (Halfprin) 81 mg DAILY PO Last administered on 12/27/16 13:15; Admin Dose 81 MG; Start 12/25/16 at 09:00 Multivit/Ca Carb/ B Cmplx/FA/Prenat (Nadiya-Ozzie) 1 tab DAILY PO Last administered on 12/28/16 08:48; Admin Dose 1 TAB; Start 12/25/16 at 09:00 Acetaminophen (Tylenol Tab) 650 mg Q6H PRN PO PAIN AND OR ELEVATED TEMP; Start 12/25/16 at 08:30 Docusate Sodium (Colace) 200 mg DAILY PO Last administered on 12/26/16 08:37; Admin Dose 200 MG; Start 12/25/16 at 09:00 Levothyroxine Sodium (Synthroid) 75 mcg DAILY@06 PO Last administered on 06:29; Admin Dose 75 MCG; Start 12/27/16 at 06:00 Metoprolol Succinate (Toprol Xl) 50 mg BID PO Last administered on 12/27/16 23: 56; Admin Dose 50 MG; Start 12/26/16 at 09:00 Pantoprazole (Protonix Tab) 40 mg AM PO Last administered on 12/27/16 13:16; Admin Dose 40 MG; Start 12/26/16 at 09:00 Patient Own Medication 1 ea BID PO Last administered on 12/28/16 08:49; Admin Dose 1 EA; Start 12/27/16 at 13:00 Insulin Glargine (Lantus) 10 unit DAILY@20 SC Last administered on 12/27/16 22: 39; Admin Dose 10 UNIT; Start 12/26/16 at 20:00 Guaifenesin/ Dextromethorphan (Robitussin Dm Liquid Cup) 10 ml QID PRN PO cough Last administered on 12/26/16 21:36; Admin Dose 10 ML; Start 12/26/16 at 10 :30 Alprazolam (Xanax) 0.25 mg BID PO Last administered on 12/28/16 08:50; Admin Dose 0.25 MG; Start 12/27/16 at 12:30 Diagnostic Test (Pha) (Accu-Chek) 1 ea 02 XX ; Start 12/28/16 at 02:00 Assessment/Plan Chief Complaint/Hosp Course Assessment 1. Improving hypoxemic respiratory failure 2. Congestive cardiac failure 3. Acute renal failure now requiring hemodialysis 4. Possible aspiration pneumonia Plan 1. Continue hemodialysis as tolerated 2. Cardiac recommendations 3. Decrease oxygen as tolerated 4. Physical therapy evaluation encourage out of bed 5. De-escalation of antibiotics discussed with infectious diseases team 6. DVT GI prophylaxis Disposition Consider transfer to [facility] Problems: LESA HUTCHINS MD, [facility] Dec 28, 2016 15:58
--- NOTE | 2016-12-28 17:54 | CONS ---
Date/Time of Note Date/Time of Note DATE: 12/28/16 TIME: 17:40 Assessment/Plan Assessment/Plan Chief Complaint/Hosp Course Impression: - hypovolemic shock- resolved - NSTEMI- improved - A/CKD- likely from shock + possible contrast nephropathy. nephrology initiating dialysis - Acute on chronic systolic heart failure- 2/2 nstemi, fluid resuscitation. fluid mgmt with dialysis given a/ckd - Multi vessel coronary artery disease - mid [id number] severe stenosis, likely related to compression from surgical clips. no further interventions at this time - SBO now resolved - Respiratory failure- extubated, but with cont congestion requiring o2 - VT/VF event - on amiodarone, no recurrence Recommendations: - cont asa 81mg daily and plavix 75 mg daily given NSTEMI - cont fluid removal with iHD - Maintain K>4, Mg>2 - Continue on amiodarone PO, can switch to daily dosing tomorrow - cont metoprolol xl 50mg po bid - add isosorbide/hydralazine given ICM and unable to tolerate acei/arb or spironolactone at this time - will consider ICD placement after stabilization of resp status/dialysis status , likely will need life vest as bridge to oupt ICD placement Problems: Consultation Date/Type/Reason Admit Date/Time Dec 16, 2016 at 17:40 Type of Consultation: cardiology Referring Provider: JULIANNE ESTRELLA MD 24 HR Interval Summary Free Text/Dictation no acute events. tele reviewed, NSR, no vt. patient seen this am, sleeping. breathing improved. no chest pain, abd pain. tolerated iHD normal bp Detailed Summary Cardiovascular: no complaints Gastrointestinal: no complaints Genitourinary: no complaints Exam/Review of Systems Vital Signs Vitals Vital Signs Date Time Temp Pulse Resp B/P Pulse Ox O2 Delivery O2 Flow Rate FiO2 12/28/16 16:19 70 12/28/16 16:04 98.4 19 134/67 98 12/28/16 15:06 2.0 12/28/16 08:30 Nasal Cannula 12/28/16 03:41 27 Intake and Output 12/27/16 12/27/16 12/28/16 15:00 23:00 07:00 Intake Total 500 ml 200 ml Output Total 3500 ml 450 ml Balance -3000 ml -250 ml Exam Constitutional: alert, oriented Psych: no complaints Head: normocephalic Eyes: EOMI, nl conjunctiva, nl lids ENMT: mucosa pink and moist, nl external ears & nose, nl nasal mucosa & septum Neck: non-tender, supple, No jvd Respiratory: improved aeration, no crackles. 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, nl mental status, nl speech, nl strength Results Result Diagram: 12/28/16 0530 12/28/16 0530 Results 24 hrs Laboratory Tests Test 12/27/16 18:19 12/27/16 21:57 12/28/16 02:53 12/28/16 05:30 Bedside Glucose 175 231 H Phosphorus Level 3.6 Magnesium Level 2.0 White Blood Count 9.8 # Red Blood Count 3.47 L Hemoglobin 10.1 L Hematocrit 31.5 L Mean Corpuscular Volume 90.8 Mean Corpuscular Hemoglobin 29.1 Mean Corpuscular Hemoglobin Concent 32.1 Red Cell Distribution Width 17.7 H Platelet Count 160 Mean Platelet Volume 13.2 H Neutrophils % 66.4 Lymphocytes % 10.7 L Monocytes % 8.2 Eosinophils % 3.0 Basophils % 0.5 Nucleated Red Blood Cells % 1.0 H Neutrophils # 6.5 Lymphocytes # 1.1 Monocytes # 0.8 Eosinophils # 0.3 Basophils # 0.1 Nucleated Red Blood Cells # 0.1 H Sodium Level 137 Potassium Level 3.6 Chloride Level 100 Carbon Dioxide Level 23 Anion Gap 18 H Blood Urea Nitrogen 48 #H Creatinine 3.57 H Glucose Level 145 Calcium Level 7.3 L Test 12/28/16 08:45 12/28/16 12:26 Bedside Glucose 145 195 Medications Medications Current Medications Ondansetron HCl (Zofran Inj) 4 mg Q6H PRN IV NAUSEA AND/OR VOMITING; Start at 16:00 Bisacodyl (Dulcolax Supp) 10 mg DAILY PRN [place] CONSTIPATION; Start 12/16/16 at 16 :00 Heparin Sodium (Porcine) (Heparin (5000 Units/0.5 ml)) 5,000 unit Q12 SC Last administered on 12/28/16 09:11; Admin Dose 5,000 UNIT; Start 12/16/16 at 21:00 Miscellaneous Information 1 ea NOTE XX ; Start 12/16/16 at 18:00 Glucose (Glutose) 15 gm Q15M PRN PO DECREASED GLUCOSE; Start 12/16/16 at 18:00 Glucose (Glutose) 22.5 gm Q15M PRN PO DECREASED GLUCOSE; Start 12/16/16 at 18: 00 Dextrose (D50w Syringe) 25 ml Q15M PRN IV DECREASED GLUCOSE; Start 12/16/16 at 18:00 Dextrose (D50w Syringe) 50 ml Q15M PRN IV DECREASED GLUCOSE; Start 12/16/16 at 18:00 Glucagon (Glucagen) 1 mg Q15M PRN IM DECREASED GLUCOSE; Start 12/16/16 at 18:00 Glucose (Glutose) 15 gm Q15M PRN BUCCAL DECREASED GLUCOSE; Start 12/16/16 at 18 :00 Morphine Sulfate (morphine) 1 mg Q4H PRN IV PAIN LEVEL 1-5; Start 12/20/16 at 11:30 Nitroglycerin (Nitroglycerin (Sl Tab) 0.4 Mg) 1 tab Q5M PRN SL ANGINA Last administered on 12/21/16 01:06; Admin Dose 1 TAB; Start 12/21/16 at 00:30 Clopidogrel Bisulfate (plaVIX) 75 mg DAILY PO Last administered on 12/27/16 13: 15; Admin Dose 75 MG; Start 12/22/16 at 09:00 Ondansetron HCl (Zofran Inj) 4 mg Q4H PRN IV NAUSEA AND/OR VOMITING; Start at 12:00 Zolpidem Tartrate (Ambien) 5 mg HS PRN PO INSOMNIA Last administered on 20:32; Admin Dose 5 MG; Start 12/22/16 at 22:00 Atorvastatin Calcium (Lipitor) 40 mg HS PO Last administered on 12/27/16 22:03 ; Admin Dose 40 MG; Start 12/23/16 at 21:00 Amiodarone HCl (Cordarone) 200 mg BID PO Last administered on 12/27/16 23:55; Admin Dose 200 MG; Start 12/24/16 at 09:00 Hydralazine HCl (Apresoline) 10 mg Q6H PRN IV ELEVATED BLOOD PRESSURE; Start at 08:00 Aspirin (Halfprin) 81 mg DAILY PO Last administered on 12/27/16 13:15; Admin Dose 81 MG; Start 12/25/16 at 09:00 Multivit/Ca Carb/ B Cmplx/FA/Prenat (Nadiya-Ozzie) 1 tab DAILY PO Last administered on 12/28/16 08:48; Admin Dose 1 TAB; Start 12/25/16 at 09:00 Acetaminophen (Tylenol Tab) 650 mg Q6H PRN PO PAIN AND OR ELEVATED TEMP; Start 12/25/16 at 08:30 Docusate Sodium (Colace) 200 mg DAILY PO Last administered on 12/26/16 08:37; Admin Dose 200 MG; Start 12/25/16 at 09:00 Levothyroxine Sodium (Synthroid) 75 mcg DAILY@06 PO Last administered on 06:29; Admin Dose 75 MCG; Start 12/27/16 at 06:00 Metoprolol Succinate (Toprol Xl) 50 mg BID PO Last administered on 12/27/16 23: 56; Admin Dose 50 MG; Start 12/26/16 at 09:00 Pantoprazole (Protonix Tab) 40 mg AM PO Last administered on 12/27/16 13:16; Admin Dose 40 MG; Start 12/26/16 at 09:00 Patient Own Medication 1 ea BID PO Last administered on 12/28/16 08:49; Admin Dose 1 EA; Start 12/27/16 at 13:00 Insulin Glargine (Lantus) 10 unit DAILY@20 SC Last administered on 12/27/16 22: 39; Admin Dose 10 UNIT; Start 12/26/16 at 20:00 Guaifenesin/ Dextromethorphan (Robitussin Dm Liquid Cup) 10 ml QID PRN PO cough Last administered on 12/26/16 21:36; Admin Dose 10 ML; Start 12/26/16 at 10 :30 Alprazolam (Xanax) 0.25 mg BID PO Last administered on 12/28/16 08:50; Admin Dose 0.25 MG; Start 12/27/16 at 12:30 Diagnostic Test (Pha) (Accu-Chek) 1 ea 02 XX ; Start 12/28/16 at 02:00 Procedures Procedures CXR images reviewed improved pulmonary edema. SAMY ROSALES. Dec 28, 2016 17:51
[2016-12-28] MEDS: ATORVASTATIN 40 MG TAB PO SCH (22:01)
[2016-12-28] MEDS: METOPROLOL (XL) 50 MG TAB PO SCH (22:02)
[2016-12-28] MEDS: INSULIN GLARGINE [LANtus] 3 ML PEN SC SCH (22:09)
[2016-12-28] MEDS: AMIODARONE 200 MG TAB PO SCH (22:12)
[2016-12-28] MEDS: ISOSORBIDE DINITRATE 5 MG TAB PO SCH (22:22)
[2016-12-29] VITALS (18 sets, daily range): BP systolic 114–153; BP diastolic 59–77; PULSE 60–76; RESP 18–20
[2016-12-29] MEDS: INSULIN ASPART [NOVOLOG] 3 ML PEN SC SCH ×5 (00:47→21:33)
[2016-12-29] MEDS: LEVALBUTEROL (NEB) 0.31 MG/3 ML AMP HHN SCH ×4 (02:00→20:56)
[2016-12-29] MEDS: ACCU-CHEK XX SCH (02:00)
[2016-12-29] MEDS: LEVOTHYROXINE 75 MCG TAB PO SCH (06:14)
[2016-12-29 06:45] LABS: ADD SCAN DIFF NO
[2016-12-29 07:25] LABS: ALBUMIN 3.6 g/dl (3.3-4.9); ALBUMIN/GLOBULIN RATIO 1.16; BILIRUBIN,INDIRECT 0.3 mg/dl (0-1.1); BILIRUBIN,TOTAL 0.3 mg/dl (0.2-1.3); CREATININE 2.94 mg/dl (0.61-1.24); POTASSIUM 4.2 mmol/L (3.5-5.1); TOTAL PROTEIN 6.7 g/dl (6.1-8.1)
[2016-12-29] MEDS: IPRATROPIUM (NEB) 0.5 MG/2.5 ML AMP HHN SCH ×3 (07:43→20:55)
[2016-12-29 08:03] LABS: ABNORMAL IP MESSAGE 1; BASOPHIL # 0.1 10^3/ul (0.0-0.1); BASOPHILS % 0.5 % (0.0-2.0); EOSINOPHILS # 0.4 10^3/ul (0.0-0.5); EOSINOPHILS % 3.6 % (0.0-7.0); HEMATOCRIT 33.1 % (42.0-52.0); HEMOGLOBIN 10.7 g/dl (14.0-18.0); LYMPHOCYTES # 1.5 10^3/ul (0.8-2.9); LYMPHOCYTES % 12.6 % (15.0-51.0); MEAN CORPUSCULAR HEMOGLOBIN 29.8 pg (29.0-33.0); MEAN CORPUSCULAR HGB CONC 32.3 g/dl (32.0-37.0); MEAN CORPUSCULAR VOLUME 92.2 fl (82.0-101.0); MONOCYTE # 0.8 10^3/ul (0.3-0.9); MONOCYTES % 6.7 % (0.0-11.0); NEUTROPHIL # 7.8 10^3/ul (1.6-7.5); NEUTROPHILS % 67.8 % (39.0-77.0); NUCLEATED RED BLOOD CELLS # 0.1 10^3/ul (0.0-0.0); NUCLEATED RED BLOOD CELLS% 0.5 /100WBC (0.0-0.0); PLATELET COUNT 172 10^3/UL (140-415); RED BLOOD COUNT 3.59 10^6/ul (4.70-6.10); RED CELL DISTRIBUTION WIDTH 17.9 % (11.5-14.5); WHITE BLOOD COUNT 11.6 10^3/ul (4.8-10.8)
[2016-12-29] MEDS: HEPARIN 5,000 UNIT/0.5 ML VIAL SC SCH ×2 (09:00→21:34)
[2016-12-29] MEDS: CLOPIDOGREL 75 MG TAB PO SCH (09:00)
[2016-12-29] MEDS: RUXOLITINIB 5 MG PO SCH ×2 (09:00→21:29)
[2016-12-29] MEDS: ASPIRIN (EC) 81 MG TAB PO SCH (09:00)
[2016-12-29] MEDS: PANTOPRAZOLE (EC) 40 MG TAB PO SCH (09:00)
[2016-12-29] MEDS: AMIODARONE 200 MG TAB PO SCH (09:00)
[2016-12-29] MEDS: ALPRAZOLAM 0.25 MG TAB PO SCH ×2 (09:00→21:00)
[2016-12-29] MEDS: ISOSORBIDE DINITRATE 5 MG TAB PO SCH ×3 (09:00→21:28)
[2016-12-29] MEDS: METOPROLOL (XL) 50 MG TAB PO SCH ×2 (09:00→21:28)
[2016-12-29] MEDS: DOCUSATE SODIUM 100 MG CAP PO SCH (09:00)
[2016-12-29] MEDS: MULTIVIT/CA CARB/B CMPLX/FA TAB PO SCH (09:00)
--- NOTE | 2016-12-29 10:46 | PN ---
Date/Time of Note Date/Time of Note DATE: 12/29/16 TIME: 10:44 Assessment/Plan VTE Prophylaxis VTE Prophylaxis Intervention: other (per primary MD) Lines/Catheters IV Catheter Type (from Nrs): Peripheral IV Urinary Cath still in place: No Assessment/Plan Assessment/Plan CBC is fine. No transfusion is needed. Jakafi has been resumed at his usual outpatient dose. No new suggestions. Subjective 24 Hr Interval Summary Free Text/Dictation Pt is presently being dialyzed and is sleeping comfortably. Exam/Review of Systems Vital Signs Vitals Vital Signs Date Time Temp Pulse Resp B/P Pulse Ox O2 Delivery O2 Flow Rate FiO2 12/29/16 08:22 60 12/29/16 07:18 98.0 19 147/77 95 12/29/16 01:23 2.0 12/28/16 20:00 Nasal Cannula 12/28/16 03:41 27 Intake and Output 12/28/16 12/28/16 12/29/16 15:00 23:00 07:00 Output Total 500 ml Balance -500 ml Exam Constitutional: other (sleeping) Head: normocephalic Respiratory: clear to auscultation Cardiovascular: regular rate and rhythm Gastrointestinal: non-tender, soft Results Result Diagram: 12/29/16 0510 12/29/16 0525 Results 24 hrs Laboratory Tests Test 12/28/16 12:26 12/28/16 17:34 12/28/16 21:58 12/29/16 00:42 Bedside Glucose 195 156 246 H 215 Test 12/29/16 05:10 12/29/16 05:25 12/29/16 08:42 White Blood Count 11.6 H Red Blood Count 3.59 L Hemoglobin 10.7 L Hematocrit 33.1 L Mean Corpuscular Volume 92.2 Mean Corpuscular Hemoglobin 29.8 Mean Corpuscular Hemoglobin Concent 32.3 Red Cell Distribution Width 17.9 H Platelet Count 172 Mean Platelet Volume Neutrophils % 67.8 Lymphocytes % 12.6 L Monocytes % 6.7 Eosinophils % 3.6 Basophils % 0.5 Nucleated Red Blood Cells % 0.5 H Neutrophils # 7.8 H Lymphocytes # 1.5 Monocytes # 0.8 Eosinophils # 0.4 Basophils # 0.1 Nucleated Red Blood Cells # 0.1 H Sodium Level 136 Potassium Level 4.2 Chloride Level 104 Carbon Dioxide Level 22 Anion Gap 14 Blood Urea Nitrogen 53 H Creatinine 2.94 H Glucose Level 148 Calcium Level 7.0 L Total Bilirubin 0.3 Direct Bilirubin 0.00 Indirect Bilirubin 0.3 Aspartate Amino Transf (AST/SGOT) 59 H Alanine Aminotransferase (ALT/SGPT) 75 H Alkaline Phosphatase 120 Total Protein 6.7 Albumin 3.6 Globulin 3.10 Albumin/Globulin Ratio 1.16 Bedside Glucose 156 Medications Medications Current Medications Ondansetron HCl (Zofran Inj) 4 mg Q6H PRN IV NAUSEA AND/OR VOMITING; Start at 16:00 Bisacodyl (Dulcolax Supp) 10 mg DAILY PRN [place] CONSTIPATION; Start 12/16/16 at 16 :00 Heparin Sodium (Porcine) (Heparin (5000 Units/0.5 ml)) 5,000 unit Q12 SC Last administered on 12/28/16 22:04; Admin Dose 5,000 UNIT; Start 12/16/16 at 21:00 Miscellaneous Information 1 ea NOTE XX ; Start 12/16/16 at 18:00 Glucose (Glutose) 15 gm Q15M PRN PO DECREASED GLUCOSE; Start 12/16/16 at 18:00 Glucose (Glutose) 22.5 gm Q15M PRN PO DECREASED GLUCOSE; Start 12/16/16 at 18: 00 Dextrose (D50w Syringe) 25 ml Q15M PRN IV DECREASED GLUCOSE; Start 12/16/16 at 18:00 Dextrose (D50w Syringe) 50 ml Q15M PRN IV DECREASED GLUCOSE; Start 12/16/16 at 18:00 Glucagon (Glucagen) 1 mg Q15M PRN IM DECREASED GLUCOSE; Start 12/16/16 at 18:00 Glucose (Glutose) 15 gm Q15M PRN BUCCAL DECREASED GLUCOSE; Start 12/16/16 at 18 :00 Morphine Sulfate (morphine) 1 mg Q4H PRN IV PAIN LEVEL 1-5; Start 12/20/16 at 11:30 Nitroglycerin (Nitroglycerin (Sl Tab) 0.4 Mg) 1 tab Q5M PRN SL ANGINA Last administered on 12/21/16 01:06; Admin Dose 1 TAB; Start 12/21/16 at 00:30 Clopidogrel Bisulfate (plaVIX) 75 mg DAILY PO Last administered on 12/27/16 13: 15; Admin Dose 75 MG; Start 12/22/16 at 09:00 Ondansetron HCl (Zofran Inj) 4 mg Q4H PRN IV NAUSEA AND/OR VOMITING; Start at 12:00 Zolpidem Tartrate (Ambien) 5 mg HS PRN PO INSOMNIA Last administered on 20:32; Admin Dose 5 MG; Start 12/22/16 at 22:00 Atorvastatin Calcium (Lipitor) 40 mg HS PO Last administered on 12/28/16 22:01 ; Admin Dose 40 MG; Start 12/23/16 at 21:00 Amiodarone HCl (Cordarone) 200 mg BID PO Last administered on 12/28/16 22:12; Admin Dose 200 MG; Start 12/24/16 at 09:00 Hydralazine HCl (Apresoline) 10 mg Q6H PRN IV ELEVATED BLOOD PRESSURE; Start at 08:00 Aspirin (Halfprin) 81 mg DAILY PO Last administered on 12/27/16 13:15; Admin Dose 81 MG; Start 12/25/16 at 09:00 Multivit/Ca Carb/ B Cmplx/FA/Prenat (Nadiya-Ozzie) 1 tab DAILY PO Last administered on 12/28/16 08:48; Admin Dose 1 TAB; Start 12/25/16 at 09:00 Acetaminophen (Tylenol Tab) 650 mg Q6H PRN PO PAIN AND OR ELEVATED TEMP; Start 12/25/16 at 08:30 Docusate Sodium (Colace) 200 mg DAILY PO Last administered on 12/26/16 08:37; Admin Dose 200 MG; Start 12/25/16 at 09:00 Levothyroxine Sodium (Synthroid) 75 mcg DAILY@06 PO Last administered on 06:14; Admin Dose 75 MCG; Start 12/27/16 at 06:00 Metoprolol Succinate (Toprol Xl) 50 mg BID PO Last administered on 12/28/16 22: 02; Admin Dose 50 MG; Start 12/26/16 at 09:00 Pantoprazole (Protonix Tab) 40 mg AM PO Last administered on 12/27/16 13:16; Admin Dose 40 MG; Start 12/26/16 at 09:00 Patient Own Medication 1 ea BID PO Last administered on 12/28/16 22:17; Admin Dose 1 EA; Start 12/27/16 at 13:00 Insulin Glargine (Lantus) 10 unit DAILY@20 SC Last administered on 12/28/16 22: 09; Admin Dose 10 UNIT; Start 12/26/16 at 20:00 Guaifenesin/ Dextromethorphan (Robitussin Dm Liquid Cup) 10 ml QID PRN PO cough Last administered on 12/26/16 21:36; Admin Dose 10 ML; Start 12/26/16 at 10 :30 Alprazolam (Xanax) 0.25 mg BID PO Last administered on 12/28/16 22:22; Admin Dose 0.25 MG; Start 12/27/16 at 12:30 Diagnostic Test (Pha) (Accu-Chek) 1 ea 02 XX ; Start 12/28/16 at 02:00 Isosorbide Dinitrate (Isordil) 5 mg TID PO Last administered on 12/28/16 22:22 ; Admin Dose 5 MG; Start 12/28/16 at 21:00 Hydralazine HCl (Apresoline) 10 mg TID PO Last administered on 12/28/16 22:01; Admin Dose 10 MG; Start 12/28/16 at 21:00 JULIANNE RIOS MD Dec 29, 2016 10:46
--- NOTE | 2016-12-29 14:27 | CONS ---
Date/Time of Note Date/Time of Note DATE: 12/29/16 TIME: 14:18 Consult Date/Type/Reason Admit Date/Time Dec 16, 2016 at 17:40 Initial Consult Date 12/25/16 Type of Consultation: nephrology Ordering Provider: JULIANNE ESTRELLA MD Subjective dry cough. No sob. Walking. Tolerated dialysis with 3 liters removed. Objective Vital Signs Date Time Temp Pulse Resp B/P Pulse Ox O2 Delivery O2 Flow Rate FiO2 12/29/16 13:26 96 2.0 12/29/16 13:25 70 20 Nasal Cannula 12/29/16 11:28 98.3 123/68 12/28/16 03:41 27 Intake and Output 12/28/16 12/28/16 12/29/16 15:00 23:00 07:00 Output Total 500 ml Balance -500 ml Exam alert and oriented Heent: eom intact, nonicteric lungs clear though dry cough cor: regular without murmur or edema' Abdomen: soft Results/Medications Result Diagram: 12/29/16 0510 12/29/16 0525 Results 24 hrs Laboratory Tests Test 12/28/16 17:34 12/28/16 21:58 12/29/16 00:42 12/29/16 05:10 Bedside Glucose 156 246 H 215 White Blood Count 11.6 H Red Blood Count 3.59 L Hemoglobin 10.7 L Hematocrit 33.1 L Mean Corpuscular Volume 92.2 Mean Corpuscular Hemoglobin 29.8 Mean Corpuscular Hemoglobin Concent 32.3 Red Cell Distribution Width 17.9 H Platelet Count 172 Mean Platelet Volume Neutrophils % 67.8 Lymphocytes % 12.6 L Monocytes % 6.7 Eosinophils % 3.6 Basophils % 0.5 Nucleated Red Blood Cells % 0.5 H Neutrophils # 7.8 H Lymphocytes # 1.5 Monocytes # 0.8 Eosinophils # 0.4 Basophils # 0.1 Nucleated Red Blood Cells # 0.1 H Test 12/29/16 05:25 12/29/16 08:42 12/29/16 11:56 Sodium Level 136 Potassium Level 4.2 Chloride Level 104 Carbon Dioxide Level 22 Anion Gap 14 Blood Urea Nitrogen 53 H Creatinine 2.94 H Glucose Level 148 Calcium Level 7.0 L Total Bilirubin 0.3 Direct Bilirubin 0.00 Indirect Bilirubin 0.3 Aspartate Amino Transf (AST/SGOT) 59 H Alanine Aminotransferase (ALT/SGPT) 75 H Alkaline Phosphatase 120 Total Protein 6.7 Albumin 3.6 Globulin 3.10 Albumin/Globulin Ratio 1.16 Bedside Glucose 156 296 H Medications Current Medications Ondansetron HCl (Zofran Inj) 4 mg Q6H PRN IV NAUSEA AND/OR VOMITING; Start at 16:00 Bisacodyl (Dulcolax Supp) 10 mg DAILY PRN [place] CONSTIPATION; Start 12/16/16 at 16 :00 Heparin Sodium (Porcine) (Heparin (5000 Units/0.5 ml)) 5,000 unit Q12 SC Last administered on 12/28/16 22:04; Admin Dose 5,000 UNIT; Start 12/16/16 at 21:00 Miscellaneous Information 1 ea NOTE XX ; Start 12/16/16 at 18:00 Glucose (Glutose) 15 gm Q15M PRN PO DECREASED GLUCOSE; Start 12/16/16 at 18:00 Glucose (Glutose) 22.5 gm Q15M PRN PO DECREASED GLUCOSE; Start 12/16/16 at 18: 00 Dextrose (D50w Syringe) 25 ml Q15M PRN IV DECREASED GLUCOSE; Start 12/16/16 at 18:00 Dextrose (D50w Syringe) 50 ml Q15M PRN IV DECREASED GLUCOSE; Start 12/16/16 at 18:00 Glucagon (Glucagen) 1 mg Q15M PRN IM DECREASED GLUCOSE; Start 12/16/16 at 18:00 Glucose (Glutose) 15 gm Q15M PRN BUCCAL DECREASED GLUCOSE; Start 12/16/16 at 18 :00 Morphine Sulfate (morphine) 1 mg Q4H PRN IV PAIN LEVEL 1-5; Start 12/20/16 at 11:30 Nitroglycerin (Nitroglycerin (Sl Tab) 0.4 Mg) 1 tab Q5M PRN SL ANGINA Last administered on 12/21/16 01:06; Admin Dose 1 TAB; Start 12/21/16 at 00:30 Clopidogrel Bisulfate (plaVIX) 75 mg DAILY PO Last administered on 12/27/16 13: 15; Admin Dose 75 MG; Start 12/22/16 at 09:00 Ondansetron HCl (Zofran Inj) 4 mg Q4H PRN IV NAUSEA AND/OR VOMITING; Start at 12:00 Zolpidem Tartrate (Ambien) 5 mg HS PRN PO INSOMNIA Last administered on 20:32; Admin Dose 5 MG; Start 12/22/16 at 22:00 Atorvastatin Calcium (Lipitor) 40 mg HS PO Last administered on 12/28/16 22:01 ; Admin Dose 40 MG; Start 12/23/16 at 21:00 Amiodarone HCl (Cordarone) 200 mg BID PO Last administered on 12/28/16 22:12; Admin Dose 200 MG; Start 12/24/16 at 09:00 Hydralazine HCl (Apresoline) 10 mg Q6H PRN IV ELEVATED BLOOD PRESSURE; Start at 08:00 Aspirin (Halfprin) 81 mg DAILY PO Last administered on 12/27/16 13:15; Admin Dose 81 MG; Start 12/25/16 at 09:00 Multivit/Ca Carb/ B Cmplx/FA/Prenat (Nadiya-Ozzie) 1 tab DAILY PO Last administered on 12/28/16 08:48; Admin Dose 1 TAB; Start 12/25/16 at 09:00 Acetaminophen (Tylenol Tab) 650 mg Q6H PRN PO PAIN AND OR ELEVATED TEMP; Start 12/25/16 at 08:30 Docusate Sodium (Colace) 200 mg DAILY PO Last administered on 12/26/16 08:37; Admin Dose 200 MG; Start 12/25/16 at 09:00 Levothyroxine Sodium (Synthroid) 75 mcg DAILY@06 PO Last administered on 06:14; Admin Dose 75 MCG; Start 12/27/16 at 06:00 Metoprolol Succinate (Toprol Xl) 50 mg BID PO Last administered on 12/28/16 22: 02; Admin Dose 50 MG; Start 12/26/16 at 09:00 Pantoprazole (Protonix Tab) 40 mg AM PO Last administered on 12/27/16 13:16; Admin Dose 40 MG; Start 12/26/16 at 09:00 Patient Own Medication 1 ea BID PO Last administered on 12/28/16 22:17; Admin Dose 1 EA; Start 12/27/16 at 13:00 Insulin Glargine (Lantus) 10 unit DAILY@20 SC Last administered on 12/28/16 22: 09; Admin Dose 10 UNIT; Start 12/26/16 at 20:00 Guaifenesin/ Dextromethorphan (Robitussin Dm Liquid Cup) 10 ml QID PRN PO cough Last administered on 12/26/16 21:36; Admin Dose 10 ML; Start 12/26/16 at 10 :30 Alprazolam (Xanax) 0.25 mg BID PO Last administered on 12/28/16 22:22; Admin Dose 0.25 MG; Start 12/27/16 at 12:30 Diagnostic Test (Pha) (Accu-Chek) 1 XX ; Start 12/28/16 at 02:00 Isosorbide Dinitrate (Isordil) 5 mg TID PO Last administered on 12/28/16 22:22 ; Admin Dose 5 MG; Start 12/28/16 at 21:00 Hydralazine HCl (Apresoline) 10 mg TID PO Last administered on 12/28/16 22:01; Admin Dose 10 MG; Start 12/28/16 at 21:00 Assessment/Plan Problems: (1) Ventricular fibrillation (2) Cardiac arrest (3) Acute on chronic renal failure Additional Assessment/Plan observe-probable dialysis Saturday SULAIMAN RAMIREZ MD Dec 29, 2016 14:27
--- NOTE | 2016-12-29 14:41 | PN ---
Date/Time of Note Date/Time of Note DATE: 12/29/16 TIME: 14:28 SUBJECTIVE: Patient awake and alert had dialysis today denies any chest pains dyspnea or palpitations, denies any abdominal pain and appetite is good. ROS: Patient denied any fevers, chills, weight loss, nausea, vomiting, diarrhea, constipation, cough, hemoptysis, dysuria, hematuria, nocturia, any neurologic symptoms, headache, any chest pains, dyspnea, PND, orthopnea, leg edema, or palpitations. All other review of systems were normal. OBJECTIVE: Vital signs please see chart. HEENT; no JVD, no HJR, carotids 2 over 4+ without bruits. Chest: Clear to auscultation and percussion, no rales, wheezes or rhonchi. Cardiac: S4, S1, S2 with normal physiologic splitting, 1/6 systolic ejection murmur, no rub click or diastolic murmur noted. Abdominal: Bowel sounds positive, soft nontender, no abdominal bruit noted, no hepatosplenomegaly. Extremities: No cyanosis, clubbing, or edema. Negative Homans sign or palpable cords. Pulses: 2/4 pulses diffusely no bruits noted. LABORATORY STUDIES; White count 11.6, hemoglobin 10.7, hematocrit 33.1, platelets 172, electrolytes normal BUN 53, creatinine 2.94, AST minimally elevated 59 and ALT at 75. Chest x-ray post sternotomy, cardiomegaly, calcified aortic knob, mild bilateral CP angle blunting, no wide mediastinum no overt heart failure. Telemetry sinus rhythm 60s-80s per monitor check no other ectopy. ASSESSMENT: 1. Ischemic cardiomyopathy ejection fraction 30% post CABG in with [place] right coronary artery stenting recent angiogram patent VALLE graft, vein graft to OM compromised by clips, patent [place] right coronary artery with stents. 2. Status post VT VF arrest currently on amiodarone and metoprolol. 3. Small bowel obstruction on admission currently resolved. 4. Myelodysplasia being followed by hematology with mild anemia. 5. Acute renal failure, ATN with hypotension worsened by emergent cath- improving. 6. Hyperlipidemia on statin. PLAN: 1. Decrease amiodarone to 200 mg a day continue metoprolol, hydralazine, statin , and Isordil avoid MITCHELL inhibitor or ARB or spironolactone with renal failure. 2. Continue aspirin and Plavix with recent non-ST elevation [place]. 3. Nephrology following with dialysis as needed hopefully renal function will continue to improve. 4. EP consultation for possible AICD prior to discharge with VT VF event for secondary prevention. ARUNA KRAMER MD Dec 29, 2016 14:41
--- NOTE | 2016-12-29 19:22 | CONS ---
Date/Time of Note Date/Time of Note DATE: 12/29/16 TIME: 19:21 Consult Date/Type/Reason Admit Date/Time Dec 16, 2016 at 17:40 Initial Consult Date 12/21/16 Type of Consultation: Pulm Ordering Provider: JULIANNE ESTRELLA MD Subjective no events. Objective Vital Signs Date Time Temp Pulse Resp B/P Pulse Ox O2 Delivery O2 Flow Rate FiO2 12/29/16 17:38 2.0 12/29/16 16:14 71 12/29/16 14:57 98.2 19 140/70 95 12/29/16 13:25 Nasal Cannula 12/28/16 03:41 27 Intake and Output 12/28/16 12/28/16 12/29/16 15:00 23:00 07:00 Output Total 500 ml Balance -500 ml Exam HEENT: Neck supple; no JVD; no LAD CVS: RRR, S1 and S2 CHEST: Clear ABD: Soft, NT, + BS EXT: No c/c/e Results/Medications Result Diagram: 12/29/16 0510 12/29/16 0525 Results 24 hrs Laboratory Tests Test 12/28/16 21:58 12/29/16 00:42 12/29/16 05:10 12/29/16 05:25 Bedside Glucose 246 H 215 White Blood Count 11.6 H Red Blood Count 3.59 L Hemoglobin 10.7 L Hematocrit 33.1 L Mean Corpuscular Volume 92.2 Mean Corpuscular Hemoglobin 29.8 Mean Corpuscular Hemoglobin Concent 32.3 Red Cell Distribution Width 17.9 H Platelet Count 172 Mean Platelet Volume Neutrophils % 67.8 Lymphocytes % 12.6 L Monocytes % 6.7 Eosinophils % 3.6 Basophils % 0.5 Nucleated Red Blood Cells % 0.5 H Neutrophils # 7.8 H Lymphocytes # 1.5 Monocytes # 0.8 Eosinophils # 0.4 Basophils # 0.1 Nucleated Red Blood Cells # 0.1 H Sodium Level 136 Potassium Level 4.2 Chloride Level 104 Carbon Dioxide Level 22 Anion Gap 14 Blood Urea Nitrogen 53 H Creatinine 2.94 H Glucose Level 148 Calcium Level 7.0 L Total Bilirubin 0.3 Direct Bilirubin 0.00 Indirect Bilirubin 0.3 Aspartate Amino Transf (AST/SGOT) 59 H Alanine Aminotransferase (ALT/SGPT) 75 H Alkaline Phosphatase 120 B-Type Natriuretic Peptide 92815 H Total Protein 6.7 Albumin 3.6 Globulin 3.10 Albumin/Globulin Ratio 1.16 Test 12/29/16 08:42 12/29/16 11:56 12/29/16 17:02 Bedside Glucose 156 296 H 290 H Medications Current Medications Ondansetron HCl (Zofran Inj) 4 mg Q6H PRN IV NAUSEA AND/OR VOMITING; Start at 16:00 Bisacodyl (Dulcolax Supp) 10 mg DAILY PRN MD CONSTIPATION; Start 12/16/16 at 16 :00 Heparin Sodium (Porcine) (Heparin (5000 Units/0.5 ml)) 5,000 unit Q12 SC Last administered on 12/28/16 22:04; Admin Dose 5,000 UNIT; Start 12/16/16 at 21:00 Miscellaneous Information 1 ea NOTE XX ; Start 12/16/16 at 18:00 Glucose (Glutose) 15 gm Q15M PRN PO DECREASED GLUCOSE; Start 12/16/16 at 18:00 Glucose (Glutose) 22.5 gm Q15M PRN PO DECREASED GLUCOSE; Start 12/16/16 at 18: 00 Dextrose (D50w Syringe) 25 ml Q15M PRN IV DECREASED GLUCOSE; Start 12/16/16 at 18:00 Dextrose (D50w Syringe) 50 ml Q15M PRN IV DECREASED GLUCOSE; Start 12/16/16 at 18:00 Glucagon (Glucagen) 1 mg Q15M PRN IM DECREASED GLUCOSE; Start 12/16/16 at 18:00 Glucose (Glutose) 15 gm Q15M PRN BUCCAL DECREASED GLUCOSE; Start 12/16/16 at 18 :00 Morphine Sulfate (morphine) 1 mg Q4H PRN IV PAIN LEVEL 1-5; Start 12/20/16 at 11:30 Nitroglycerin (Nitroglycerin (Sl Tab) 0.4 Mg) 1 tab Q5M PRN SL ANGINA Last administered on 12/21/16 01:06; Admin Dose 1 TAB; Start 12/21/16 at 00:30 Clopidogrel Bisulfate (plaVIX) 75 mg DAILY PO Last administered on 12/27/16 13: 15; Admin Dose 75 MG; Start 12/22/16 at 09:00 Ondansetron HCl (Zofran Inj) 4 mg Q4H PRN IV NAUSEA AND/OR VOMITING; Start at 12:00 Zolpidem Tartrate (Ambien) 5 mg HS PRN PO INSOMNIA Last administered on 20:32; Admin Dose 5 MG; Start 12/22/16 at 22:00 Atorvastatin Calcium (Lipitor) 40 mg HS PO Last administered on 12/28/16 22:01 ; Admin Dose 40 MG; Start 12/23/16 at 21:00 Hydralazine HCl (Apresoline) 10 mg Q6H PRN IV ELEVATED BLOOD PRESSURE; Start at 08:00 Aspirin (Halfprin) 81 mg DAILY PO Last administered on 12/27/16 13:15; Admin Dose 81 MG; Start 12/25/16 at 09:00 Multivit/Ca Carb/ B Cmplx/FA/Prenat (Nadiya-Ozzie) 1 tab DAILY PO Last administered on 12/28/16 08:48; Admin Dose 1 TAB; Start 12/25/16 at 09:00 Acetaminophen (Tylenol Tab) 650 mg Q6H PRN PO PAIN AND OR ELEVATED TEMP; Start 12/25/16 at 08:30 Docusate Sodium (Colace) 200 mg DAILY PO Last administered on 12/26/16 08:37; Admin Dose 200 MG; Start 12/25/16 at 09:00 Levothyroxine Sodium (Synthroid) 75 mcg DAILY@06 PO Last administered on 06:14; Admin Dose 75 MCG; Start 12/27/16 at 06:00 Metoprolol Succinate (Toprol Xl) 50 mg BID PO Last administered on 12/28/16 22: 02; Admin Dose 50 MG; Start 12/26/16 at 09:00 Pantoprazole (Protonix Tab) 40 mg AM PO Last administered on 12/27/16 13:16; Admin Dose 40 MG; Start 12/26/16 at 09:00 Patient Own Medication 1 ea BID PO Last administered on 12/28/16 22:17; Admin Dose 1 EA; Start 12/27/16 at 13:00 Insulin Glargine (Lantus) 10 unit DAILY@20 SC Last administered on 12/28/16 22: 09; Admin Dose 10 UNIT; Start 12/26/16 at 20:00 Guaifenesin/ Dextromethorphan (Robitussin Dm Liquid Cup) 10 ml QID PRN PO cough Last administered on 12/26/16 21:36; Admin Dose 10 ML; Start 12/26/16 at 10 :30 Alprazolam (Xanax) 0.25 mg BID PO Last administered on 12/28/16 22:22; Admin Dose 0.25 MG; Start 12/27/16 at 12:30 Diagnostic Test (Pha) (Accu-Chek) 1 ea 02 XX ; Start 12/28/16 at 02:00 Isosorbide Dinitrate (Isordil) 5 mg TID PO Last administered on 12/29/16 14:19 ; Admin Dose 5 MG; Start 12/28/16 at 21:00 Hydralazine HCl (Apresoline) 10 mg TID PO Last administered on 12/29/16 14:18; Admin Dose 10 MG; Start 12/28/16 at 21:00 Amiodarone HCl (Cordarone) 200 mg QAM PO ; Start 12/30/16 at 09:00 Assessment/Plan Additional Assessment/Plan IMP: 1. s/p Respiratory Failure 2. s/p NSTEMI 3. CKD 4. RLL infiltrate--? etiology aspiration 5. Anemia 6. SBO RECS: 1. de-escalate abx 2. CPT/suctioning/BD's 3. Mobilize OOB 4. PT/OT ALONDRA LIN MD Dec 29, 2016 19:22
[2016-12-29] MEDS: ATORVASTATIN 40 MG TAB PO SCH (21:29)
[2016-12-29] MEDS: INSULIN GLARGINE [LANtus] 3 ML PEN SC SCH (21:32)
[2016-12-30] VITALS (11 sets, daily range): BP systolic 123–158; BP diastolic 60–76; PULSE 65–71; RESP 16–19
[2016-12-30] MEDS: LEVALBUTEROL (NEB) 0.31 MG/3 ML AMP HHN SCH ×4 (01:04→19:52)
[2016-12-30] MEDS: ACCU-CHEK XX SCH (02:00)
[2016-12-30] MEDS: ALPRAZOLAM 0.25 MG TAB PO SCH ×3 (03:17→21:00)
[2016-12-30 06:25] LABS: ADD SCAN DIFF NO
[2016-12-30] MEDS: LEVOTHYROXINE 75 MCG TAB PO SCH (06:29)
[2016-12-30 06:42] LABS: ABNORMAL IP MESSAGE 1; BASOPHILS % 0.3 % (0.0-2.0); EOSINOPHILS # 0.3 10^3/ul (0.0-0.5); EOSINOPHILS % 2.6 % (0.0-7.0); HEMATOCRIT 33.2 % (42.0-52.0); HEMOGLOBIN 10.5 g/dl (14.0-18.0); LYMPHOCYTES # 1.3 10^3/ul (0.8-2.9); LYMPHOCYTES % 10.3 % (15.0-51.0); MEAN CORPUSCULAR HEMOGLOBIN 28.8 pg (29.0-33.0); MEAN CORPUSCULAR HGB CONC 31.6 g/dl (32.0-37.0); MEAN CORPUSCULAR VOLUME 91.2 fl (82.0-101.0); MEAN PLATELET VOLUME 12.3 fl (7.4-10.4); MONOCYTE # 0.8 10^3/ul (0.3-0.9); MONOCYTES % 6.3 % (0.0-11.0); NEUTROPHIL # 8.7 10^3/ul (1.6-7.5); NEUTROPHILS % 71.7 % (39.0-77.0); NUCLEATED RED BLOOD CELLS # 0.1 10^3/ul (0.0-0.0); NUCLEATED RED BLOOD CELLS% 0.7 /100WBC (0.0-0.0); PLATELET COUNT 174 10^3/UL (140-415); RED BLOOD COUNT 3.64 10^6/ul (4.70-6.10); RED CELL DISTRIBUTION WIDTH 18.3 % (11.5-14.5); WHITE BLOOD COUNT 12.2 10^3/ul (4.8-10.8)
[2016-12-30 06:46] LABS: CALCIUM 7.1 mg/dl (8.4-10.2); CREATININE 2.68 mg/dl (0.61-1.24); POTASSIUM 3.7 mmol/L (3.5-5.1)
[2016-12-30 07:17] LABS: MAGNESIUM 1.8 mg/dl (1.7-2.5); PHOSPHORUS 4.1 mg/dl (2.5-4.9)
[2016-12-30] MEDS: IPRATROPIUM (NEB) 0.5 MG/2.5 ML AMP HHN SCH ×3 (07:48→19:52)
[2016-12-30] MEDS: DOCUSATE SODIUM 100 MG CAP PO SCH (08:14)
[2016-12-30] MEDS: RUXOLITINIB 5 MG PO SCH ×2 (08:14→21:55)
[2016-12-30] MEDS: ASPIRIN (EC) 81 MG TAB PO SCH (08:14)
[2016-12-30] MEDS: ISOSORBIDE DINITRATE 5 MG TAB PO SCH ×3 (08:15→21:34)
[2016-12-30] MEDS: CLOPIDOGREL 75 MG TAB PO SCH (08:16)
[2016-12-30] MEDS: AMIODARONE 200 MG TAB PO SCH (08:16)
[2016-12-30] MEDS: PANTOPRAZOLE (EC) 40 MG TAB PO SCH (08:16)
[2016-12-30] MEDS: MULTIVIT/CA CARB/B CMPLX/FA TAB PO SCH (08:16)
[2016-12-30] MEDS: METOPROLOL (XL) 50 MG TAB PO SCH ×2 (08:17→21:36)
[2016-12-30] MEDS: HEPARIN 5,000 UNIT/0.5 ML VIAL SC SCH ×2 (08:21→21:44)
[2016-12-30] MEDS: INSULIN ASPART [NOVOLOG] 3 ML PEN SC SCH ×4 (08:28→21:44)
--- NOTE | 2016-12-30 11:00 | PN ---
Date/Time of Note Date/Time of Note DATE: 12/30/16 TIME: 10:59 Assessment/Plan VTE Prophylaxis VTE Prophylaxis Intervention: ambulation Lines/Catheters IV Catheter Type (from [facility] Sal[facility] Lock Urinary Cath still in place: No Assessment/Plan Assessment/Plan CBC is stable on Jakafi. No transfusions needed Subjective 24 Hr Interval Summary Free Text/Dictation Pt was dialyzed yesterday. He has no complaints this morning. Exam/Review of Systems Vital Signs Vitals Vital Signs Date Time Temp Pulse Resp B/P Pulse Ox O2 Delivery O2 Flow Rate FiO2 12/30/16 08:16 65 12/30/16 07:52 94 21 12/30/16 07:51 18 12/30/16 07:35 97.8 158/76 12/29/16 20:00 Nasal Cannula 2.0 Intake and Output 12/29/16 12/29/16 12/30/16 15:00 23:00 07:00 Intake Total 500 ml 700 ml 320 ml Output Total 3500 ml 600 ml 950 ml Balance -3000 ml 100 ml -630 ml Exam Constitutional: alert, oriented Head: normocephalic Eyes: nl conjunctiva Neck: supple Respiratory: clear to auscultation Cardiovascular: regular rate and rhythm Gastrointestinal: soft Results Result Diagram: 12/30/16 0525 12/30/16 0525 Results 24 hrs Laboratory Tests Test 12/29/16 11:56 12/29/16 17:02 12/29/16 21:24 12/30/16 05:25 Bedside Glucose 296 H 290 H 281 H White Blood Count 12.2 H Red Blood Count 3.64 L Hemoglobin 10.5 L Hematocrit 33.2 L Mean Corpuscular Volume 91.2 Mean Corpuscular Hemoglobin 28.8 L Mean Corpuscular Hemoglobin Concent 31.6 L Red Cell Distribution Width 18.3 H Platelet Count 174 Mean Platelet Volume 12.3 H Neutrophils % 71.7 Lymphocytes % 10.3 L Monocytes % 6.3 Eosinophils % 2.6 Basophils % 0.3 Nucleated Red Blood Cells % 0.7 H Neutrophils # 8.7 H Lymphocytes # 1.3 Monocytes # 0.8 Eosinophils # 0.3 Basophils # 0.0 Nucleated Red Blood Cells # 0.1 H Sodium Level 136 Potassium Level 3.7 Chloride Level 104 Carbon Dioxide Level 23 Anion Gap 13 Blood Urea Nitrogen 47 H Creatinine 2.68 H Glucose Level 170 Calcium Level 7.1 L Phosphorus Level 4.1 Magnesium Level 1.8 Test 12/30/16 08:13 Bedside Glucose 152 Medications Medications Current Medications Ondansetron HCl (Zofran Inj) 4 mg Q6H PRN IV NAUSEA AND/OR VOMITING; Start at 16:00 Bisacodyl (Dulcolax Supp) 10 mg DAILY PRN [place] CONSTIPATION; Start 12/16/16 at 16 :00 Heparin Sodium (Porcine) (Heparin (5000 Units/0.5 ml)) 5,000 unit Q12 SC Last administered on 12/30/16 08:21; Admin Dose 5,000 UNIT; Start 12/16/16 at 21:00 Miscellaneous Information 1 ea NOTE XX ; Start 12/16/16 at 18:00 Glucose (Glutose) 15 gm Q15M PRN PO DECREASED GLUCOSE; Start 12/16/16 at 18:00 Glucose (Glutose) 22.5 gm Q15M PRN PO DECREASED GLUCOSE; Start 12/16/16 at 18: 00 Dextrose (D50w Syringe) 25 ml Q15M PRN IV DECREASED GLUCOSE; Start 12/16/16 at 18:00 Dextrose (D50w Syringe) 50 ml Q15M PRN IV DECREASED GLUCOSE; Start 12/16/16 at 18:00 Glucagon (Glucagen) 1 mg Q15M PRN IM DECREASED GLUCOSE; Start 12/16/16 at 18:00 Glucose (Glutose) 15 gm Q15M PRN BUCCAL DECREASED GLUCOSE; Start 12/16/16 at 18 :00 Morphine Sulfate (morphine) 1 mg Q4H PRN IV PAIN LEVEL 1-5; Start 12/20/16 at 11:30 Nitroglycerin (Nitroglycerin (Sl Tab) 0.4 Mg) 1 tab Q5M PRN SL ANGINA Last administered on 12/21/16 01:06; Admin Dose 1 TAB; Start 12/21/16 at 00:30 Clopidogrel Bisulfate (plaVIX) 75 mg DAILY PO Last administered on 12/30/16 08: 16; Admin Dose 75 MG; Start 12/22/16 at 09:00 Ondansetron HCl (Zofran Inj) 4 mg Q4H PRN IV NAUSEA AND/OR VOMITING; Start at 12:00 Zolpidem Tartrate (Ambien) 5 mg HS PRN PO INSOMNIA Last administered on 20:32; Admin Dose 5 MG; Start 12/22/16 at 22:00 Atorvastatin Calcium (Lipitor) 40 mg HS PO Last administered on 12/29/16 21:29 ; Admin Dose 40 MG; Start 12/23/16 at 21:00 Hydralazine HCl (Apresoline) 10 mg Q6H PRN IV ELEVATED BLOOD PRESSURE; Start at 08:00 Aspirin (Halfprin) 81 mg DAILY PO Last administered on 12/30/16 08:14; Admin Dose 81 MG; Start 12/25/16 at 09:00 Multivit/Ca Carb/ B Cmplx/FA/Prenat (Nadiya-Ozzie) 1 tab DAILY PO Last administered on 12/30/16 08:16; Admin Dose 1 TAB; Start 12/25/16 at 09:00 Acetaminophen (Tylenol Tab) 650 mg Q6H PRN PO PAIN AND OR ELEVATED TEMP; Start 12/25/16 at 08:30 Docusate Sodium (Colace) 200 mg DAILY PO Last administered on 12/26/16 08:37; Admin Dose 200 MG; Start 12/25/16 at 09:00 Levothyroxine Sodium (Synthroid) 75 mcg DAILY@06 PO Last administered on 06:29; Admin Dose 75 MCG; Start 12/27/16 at 06:00 Metoprolol Succinate (Toprol Xl) 50 mg BID PO Last administered on 12/30/16 08: 17; Admin Dose 50 MG; Start 12/26/16 at 09:00 Pantoprazole (Protonix Tab) 40 mg AM PO Last administered on 12/30/16 08:16; Admin Dose 40 MG; Start 12/26/16 at 09:00 Patient Own Medication 1 ea BID PO Last administered on 12/30/16 08:14; Admin Dose 1 EA; Start 12/27/16 at 13:00 Insulin Glargine (Lantus) 10 unit DAILY@20 SC Last administered on 12/29/16 21: 32; Admin Dose 10 UNIT; Start 12/26/16 at 20:00 Guaifenesin/ Dextromethorphan (Robitussin Dm Liquid Cup) 10 ml QID PRN PO cough Last administered on 12/26/16 21:36; Admin Dose 10 ML; Start 12/26/16 at 10 :30 Alprazolam (Xanax) 0.25 mg BID PO Last administered on 12/30/16 03:17; Admin Dose 0.25 MG; Start 12/27/16 at 12:30 Diagnostic Test (Pha) (Accu-Chek) 1 ea 02 XX ; Start 12/28/16 at 02:00 Isosorbide Dinitrate (Isordil) 5 mg TID PO Last administered on 12/30/16 08:15 ; Admin Dose 5 MG; Start 12/28/16 at 21:00 Hydralazine HCl (Apresoline) 10 mg TID PO Last administered on 12/30/16 08:17; Admin Dose 10 MG; Start 12/28/16 at 21:00 Amiodarone HCl (Cordarone) 200 mg QAM PO Last administered on 12/30/16 08:16; Admin Dose 200 MG; Start 12/30/16 at 09:00 JULIANNE RIOS MD Dec 30, 2016 11:00
--- NOTE | 2016-12-30 13:03 | PN ---
Date/Time of Note Date/Time of Note DATE: 12/30/16 TIME: 12:57 SUBJECTIVE: Patient awake and alert denies any chest pains dyspnea or palpitations, denies any abdominal pain and appetite is good. Patient's family is present. Chart reviewed, laboratory studies and medications. ROS: Patient denied any fevers, chills, weight loss, nausea, vomiting, diarrhea, constipation, cough, hemoptysis, dysuria, hematuria, nocturia, any neurologic symptoms, headache, any chest pains, dyspnea, PND, orthopnea, leg edema, or palpitations. All other review of systems were normal. OBJECTIVE: Vital signs please see chart. HEENT; no JVD, no HJR, carotids 2 over 4+ without bruits. Chest: Clear to auscultation and percussion, no rales, wheezes or rhonchi. Cardiac: S4, S1, S2 with normal physiologic splitting, 1/6 systolic ejection murmur, no rub click or diastolic murmur noted. Abdominal: Bowel sounds positive, soft nontender, no abdominal bruit noted, no hepatosplenomegaly. Extremities: No cyanosis, clubbing, or edema. Negative Homans sign or palpable cords. Pulses: 2/4 pulses diffusely no bruits noted. LABORATORY STUDIES; White count 12.2, hemoglobin 10.5, hematocrit 33.2, platelets 174, electrolytes normal BUN 47, creatinine 2.68 decreased, magnesium 1.8, phosphate 4.1. Chest x-ray revealed cardiomegaly, post-sternotomy, calcified aortic knob, right CP angle blunting otherwise clear. Telemetry sinus rhythm 60s-80s per monitor check no other ectopy. ASSESSMENT: 1. Ischemic cardiomyopathy ejection fraction 30% post CABG in with [place] right coronary artery stenting recent angiogram patent VALLE graft, vein graft to OM compromised by clips, patent [place] right coronary artery with stents with non-ST elevation CT this admission. 2. Status post VT VF arrest currently on amiodarone and metoprolol. 3. Small bowel obstruction on admission currently resolved. 4. Myelodysplasia being followed by hematology with mild anemia. 5. Acute renal failure, ATN with hypotension worsened by emergent cath- improving, possible dialysis tomorrow. 6. Hyperlipidemia on statin. Patient stable not in heart failure, no further arrhythmias, renal function improving. Discussed at length with patient's and family that will need AICD for secondary prevention with recent VT VF arrest and will have electrophysiologic consultation with Dr. Yates in the near future. At this point will increase Isordil to 10 mg 3 times a day continue amiodarone, metoprolol, aspirin, Plavix, and statin and hydralazine. PLAN: 1. Increase Isordil to 10 mg 3 times daily. 2. Replace magnesium. 3. Diuretics versus repeat dialysis per nephrology. 4. Continue amiodarone, metoprolol, aspirin Plavix and statin. 5. EP consultation with Dr. Yates pending for AICD placement for secondary prevention. ARUNA KRAMER MD Dec 30, 2016 13:03
--- NOTE | 2016-12-30 13:15 | CONS ---
Date/Time of Note Date/Time of Note DATE: 12/30/16 TIME: 13:08 Consult Date/Type/Reason Admit Date/Time Dec 16, 2016 at 17:40 Initial Consult Date 12/25/16 Type of Consultation: Renal Ordering Provider: JULIANNE ESTRELLA MD Subjective Mild cough. No sob. Has appetite. Excellent urine output raises question of recovery of renal function. Objective Vital Signs Date Time Temp Pulse Resp B/P Pulse Ox O2 Delivery O2 Flow Rate FiO2 12/30/16 12:16 66 12/30/16 11:51 98.1 18 131/60 96 12/30/16 07:52 21 12/29/16 20:00 Nasal Cannula 2.0 Intake and Output 12/29/16 12/29/16 12/30/16 15:00 23:00 07:00 Intake Total 500 ml 700 ml 320 ml Output Total 3500 ml 600 ml 950 ml Balance -3000 ml 100 ml -630 ml Results/Medications Result Diagram: 12/30/16 0525 12/30/16 0525 Results 24 hrs Laboratory Tests Test 12/29/16 17:02 12/29/16 21:24 12/30/16 05:25 12/30/16 08:13 Bedside Glucose 290 H 281 H 152 White Blood Count 12.2 H Red Blood Count 3.64 L Hemoglobin 10.5 L Hematocrit 33.2 L Mean Corpuscular Volume 91.2 Mean Corpuscular Hemoglobin 28.8 L Mean Corpuscular Hemoglobin Concent 31.6 L Red Cell Distribution Width 18.3 H Platelet Count 174 Mean Platelet Volume 12.3 H Neutrophils % 71.7 Lymphocytes % 10.3 L Monocytes % 6.3 Eosinophils % 2.6 Basophils % 0.3 Nucleated Red Blood Cells % 0.7 H Neutrophils # 8.7 H Lymphocytes # 1.3 Monocytes # 0.8 Eosinophils # 0.3 Basophils # 0.0 Nucleated Red Blood Cells # 0.1 H Sodium Level 136 Potassium Level 3.7 Chloride Level 104 Carbon Dioxide Level 23 Anion Gap 13 Blood Urea Nitrogen 47 H Creatinine 2.68 H Glucose Level 170 Calcium Level 7.1 L Phosphorus Level 4.1 Magnesium Level 1.8 Test 12/30/16 12:43 Bedside Glucose 211 Medications Current Medications Ondansetron HCl (Zofran Inj) 4 mg Q6H PRN IV NAUSEA AND/OR VOMITING; Start at 16:00 Bisacodyl (Dulcolax Supp) 10 mg DAILY PRN [place] CONSTIPATION; Start 12/16/16 at 16 :00 Heparin Sodium (Porcine) (Heparin (5000 Units/0.5 ml)) 5,000 unit Q12 SC Last administered on 12/30/16 08:21; Admin Dose 5,000 UNIT; Start 12/16/16 at 21:00 Miscellaneous Information 1 ea NOTE XX ; Start 12/16/16 at 18:00 Glucose (Glutose) 15 gm Q15M PRN PO DECREASED GLUCOSE; Start 12/16/16 at 18:00 Glucose (Glutose) 22.5 gm Q15M PRN PO DECREASED GLUCOSE; Start 12/16/16 at 18: 00 Dextrose (D50w Syringe) 25 ml Q15M PRN IV DECREASED GLUCOSE; Start 12/16/16 at 18:00 Dextrose (D50w Syringe) 50 ml Q15M PRN IV DECREASED GLUCOSE; Start 12/16/16 at 18:00 Glucagon (Glucagen) 1 mg Q15M PRN IM DECREASED GLUCOSE; Start 12/16/16 at 18:00 Glucose (Glutose) 15 gm Q15M PRN BUCCAL DECREASED GLUCOSE; Start 12/16/16 at 18 :00 Morphine Sulfate (morphine) 1 mg Q4H PRN IV PAIN LEVEL 1-5; Start 12/20/16 at 11:30 Nitroglycerin (Nitroglycerin (Sl Tab) 0.4 Mg) 1 tab Q5M PRN SL ANGINA Last administered on 12/21/16 01:06; Admin Dose 1 TAB; Start 12/21/16 at 00:30 Clopidogrel Bisulfate (plaVIX) 75 mg DAILY PO Last administered on 12/30/16 08: 16; Admin Dose 75 MG; Start 12/22/16 at 09:00 Ondansetron HCl (Zofran Inj) 4 mg Q4H PRN IV NAUSEA AND/OR VOMITING; Start at 12:00 Zolpidem Tartrate (Ambien) 5 mg HS PRN PO INSOMNIA Last administered on 20:32; Admin Dose 5 MG; Start 12/22/16 at 22:00 Atorvastatin Calcium (Lipitor) 40 mg HS PO Last administered on 12/29/16 21:29 ; Admin Dose 40 MG; Start 12/23/16 at 21:00 Hydralazine HCl (Apresoline) 10 mg Q6H PRN IV ELEVATED BLOOD PRESSURE; Start at 08:00 Aspirin (Halfprin) 81 mg DAILY PO Last administered on 12/30/16 08:14; Admin Dose 81 MG; Start 12/25/16 at 09:00 Multivit/Ca Carb/ B Cmplx/FA/Prenat (Nadiya-Ozzie) 1 tab DAILY PO Last administered on 12/30/16 08:16; Admin Dose 1 TAB; Start 12/25/16 at 09:00 Acetaminophen (Tylenol Tab) 650 mg Q6H PRN PO PAIN AND OR ELEVATED TEMP; Start 12/25/16 at 08:30 Docusate Sodium (Colace) 200 mg DAILY PO Last administered on 12/26/16 08:37; Admin Dose 200 MG; Start 12/25/16 at 09:00 Levothyroxine Sodium (Synthroid) 75 mcg DAILY@06 PO Last administered on 06:29; Admin Dose 75 MCG; Start 12/27/16 at 06:00 Metoprolol Succinate (Toprol Xl) 50 mg BID PO Last administered on 12/30/16 08: 17; Admin Dose 50 MG; Start 12/26/16 at 09:00 Pantoprazole (Protonix Tab) 40 mg AM PO Last administered on 12/30/16 08:16; Admin Dose 40 MG; Start 12/26/16 at 09:00 Patient Own Medication 1 ea BID PO Last administered on 12/30/16 08:14; Admin Dose 1 EA; Start 12/27/16 at 13:00 Insulin Glargine (Lantus) 10 unit DAILY@20 SC Last administered on 12/29/16 21: 32; Admin Dose 10 UNIT; Start 12/26/16 at 20:00 Guaifenesin/ Dextromethorphan (Robitussin Dm Liquid Cup) 10 ml QID PRN PO cough Last administered on 12/26/16 21:36; Admin Dose 10 ML; Start 12/26/16 at 10 :30 Alprazolam (Xanax) 0.25 mg BID PO Last administered on 12/30/16 03:17; Admin Dose 0.25 MG; Start 12/27/16 at 12:30 Diagnostic Test (Pha) (Accu-Chek) 1 ea 02 XX ; Start 12/28/16 at 02:00 Isosorbide Dinitrate (Isordil) 5 mg TID PO Last administered on 12/30/16 12:42 ; Admin Dose 5 MG; Start 12/28/16 at 21:00 Hydralazine HCl (Apresoline) 10 mg TID PO Last administered on 12/30/16 12:43; Admin Dose 10 MG; Start 12/28/16 at 21:00 Amiodarone HCl (Cordarone) 200 mg QAM PO Last administered on 12/30/16 08:16; Admin Dose 200 MG; Start 12/30/16 at 09:00 Assessment/Plan Problems: (1) Acute on chronic renal failure (2) Ventricular fibrillation Additional Assessment/Plan Will give dose of iv lasix to keep up diuresis cxr in am decision about dialysis pacer defib per Cards. SULAIMAN RAMIREZ MD Dec 30, 2016 13:15
[2016-12-30] MEDS ORDERED: FUROSEMIDE 40 MG INJ IV ONE (13:30)
--- NOTE | 2016-12-30 13:32 | RADRPT ---
Echocardiogram Report Patient Name: ABIMAEL VILLALOBOS Gender: Male Date: 1935 Study Date: 30-Dec-2016 Dynamic Balancer Set Up Worker: LIANA [facility] [[email or web address]] Location: [id number] Ref. Physician: ARUNA KRAMER Quality: Adequate Procedures: Transthoracic echocardiogram with complete 2D, M-Mode, and doppler examination. Indications: S/P CARDIAC ARREST. 2D/M Mode Doppler Measurement Value Normal Ranges Measurement Value Normal Ranges LVIDd 2D 5.9 3.5 - 5.6 cm AV Peak Seng 1.4 m/sec LVIDs 2D 5.0 2.1 - 4.1 cm AV Peak PG 8.4 mmHg LVPWd 2D 1.2 0.6 - 1.1 cm AI Peak PG 21.1 mmHg IVSd 2D 1.0 0.6 - 1.1 cm AI Peak Seng 2.3 m/sec AoR Diam 2D 2.6 2.0 - 3.7 cm AI PHT 384.6 msec EDV 2D 176.3 cm3 LVOT Peak Seng 1.1 m/sec ESV 2D 121.4 cm3 LVOT Peak PG 4.8 mmHg MV E Peak Seng 0.6 m/sec MV A Peak Seng 0.9 m/sec MV E/A 0.6 MV Decel Time 268 msec MV Decel Schley 2 MV E/A 0.6 Findings Left Ventricle: Mild enlargement of left ventricle cavity. Moderate global left ventricular systolic dysfunction. Ejection fraction is visually estimated at 35 %. Tissue Doppler/Mitral Doppler indices are consistent with impaired relaxation (Stage I diastolic dysfunction). E/E`=8. infero-basal marked hypokinesis and mild paradoxical septal motion c/w post-op changes or conduction delay. Normal e/e` ratio c/w normal LA pressure. Right Ventricle: Normal right ventricular size. Mild right ventricular systolic dysfunction. Left Atrium: The left atrium is normal in size. Right Atrium: The right atrium is normal in size. Mitral Valve: Mild mitral annular calcification. Mild mitral valve regurgitation. Aortic Valve: Aortic cusps appear mildly calcified. Mild aortic valve regurgitation. pressure t1/8=950ecwn. Tricuspid Valve: Tricuspid valve not well visualized. There is trace tricuspid regurgitation. No pulmonary HTN noted. Pulmonic Valve: Pulmonic valve not well visualized. There is mild pulmonic regurgitation. Pericardium: Normal pericardium with no significant pericardial effusion. Left pleural effusion seen. possible small left pleural effusion noted. Aorta: Normal aortic root. IVC: Normal size and normal respiratory collapse consistent with normal right atrial pressure. Conclusions 1.Mild enlargement of left ventricle cavity. Moderate global left ventricular systolic dysfunction. Ejection fraction is visually estimated at 35 %. Tissue Doppler/Mitral Doppler indices are consistent with impaired relaxation (Stage I diastolic dysfunction). E/E`=8. infero-basal marked hypokinesis and mild paradoxical septal motion c/w post-op changes or conduction delay. Normal e/e` ratio c/w normal LA pressure. 2.The left atrium is normal in size. 3.Mild mitral annular calcification. Mild mitral valve regurgitation. 4.Aortic cusps appear mildly calcified. Mild aortic valve regurgitation. pressure t1/7=480egyc. 5.Tricuspid valve not well visualized. There is trace tricuspid regurgitation. No pulmonary HTN noted. 6.Normal pericardium with no significant pericardial effusion. Left pleural effusion seen. possible small left pleural effusion noted. 7.Normal size and normal respiratory collapse consistent with normal right atrial pressure. 8.No Vegetation, masses, or thrombi seen. Electronically Signed By: Aruna Kramer 30-Dec-2016 13:31:36 -0700 Patient Name: ABIMAEL VILLALOBOS Study Date: 30-Dec-2016 [id number]
[2016-12-30] MEDS ORDERED: MAGNESIUM SULFATE 1 GM/D5W 100 ML IVPB ONE (14:30)
--- NOTE | 2016-12-30 16:21 | CONS ---
Date/Time of Note Date/Time of Note DATE: 12/30/16 TIME: 16:20 Consult Date/Type/Reason Admit Date/Time Dec 16, 2016 at 17:40 Initial Consult Date 12/21/16 Type of Consultation: Pulm Ordering Provider: JULIANNE ESTRELLA MD Subjective No events. No SOB. Objective Vital Signs Date Time Temp Pulse Resp B/P Pulse Ox O2 Delivery O2 Flow Rate FiO2 12/30/16 16:19 71 12/30/16 15:28 98.0 18 123/60 94 12/30/16 13:25 21 12/29/16 20:00 Nasal Cannula 2.0 Intake and Output 12/29/16 12/29/16 12/30/16 15:00 23:00 07:00 Intake Total 500 ml 700 ml 320 ml Output Total 3500 ml 600 ml 950 ml Balance -3000 ml 100 ml -630 ml Exam HEENT: Neck supple; no JVD; no LAD CVS: RRR, S1 and S2 CHEST: Clear ABD: Soft, NT, + BS EXT: No c/c/e Results/Medications Result Diagram: 12/30/16 0525 12/30/16 0525 Results 24 hrs Laboratory Tests Test 12/29/16 17:02 12/29/16 21:24 12/30/16 05:25 12/30/16 08:13 Bedside Glucose 290 H 281 H 152 White Blood Count 12.2 H Red Blood Count 3.64 L Hemoglobin 10.5 L Hematocrit 33.2 L Mean Corpuscular Volume 91.2 Mean Corpuscular Hemoglobin 28.8 L Mean Corpuscular Hemoglobin Concent 31.6 L Red Cell Distribution Width 18.3 H Platelet Count 174 Mean Platelet Volume 12.3 H Neutrophils % 71.7 Lymphocytes % 10.3 L Monocytes % 6.3 Eosinophils % 2.6 Basophils % 0.3 Nucleated Red Blood Cells % 0.7 H Neutrophils # 8.7 H Lymphocytes # 1.3 Monocytes # 0.8 Eosinophils # 0.3 Basophils # 0.0 Nucleated Red Blood Cells # 0.1 H Sodium Level 136 Potassium Level 3.7 Chloride Level 104 Carbon Dioxide Level 23 Anion Gap 13 Blood Urea Nitrogen 47 H Creatinine 2.68 H Glucose Level 170 Calcium Level 7.1 L Phosphorus Level 4.1 Magnesium Level 1.8 Test 12/30/16 12:43 Bedside Glucose 211 Medications Current Medications Ondansetron HCl (Zofran Inj) 4 mg Q6H PRN IV NAUSEA AND/OR VOMITING; Start at 16:00 Bisacodyl (Dulcolax Supp) 10 mg DAILY PRN [place] CONSTIPATION; Start 12/16/16 at 16 :00 Heparin Sodium (Porcine) (Heparin (5000 Units/0.5 ml)) 5,000 unit Q12 SC Last administered on 12/30/16 08:21; Admin Dose 5,000 UNIT; Start 12/16/16 at 21:00 Miscellaneous Information 1 ea NOTE XX ; Start 12/16/16 at 18:00 Glucose (Glutose) 15 gm Q15M PRN PO DECREASED GLUCOSE; Start 12/16/16 at 18:00 Glucose (Glutose) 22.5 gm Q15M PRN PO DECREASED GLUCOSE; Start 12/16/16 at 18: 00 Dextrose (D50w Syringe) 25 ml Q15M PRN IV DECREASED GLUCOSE; Start 12/16/16 at 18:00 Dextrose (D50w Syringe) 50 ml Q15M PRN IV DECREASED GLUCOSE; Start 12/16/16 at 18:00 Glucagon (Glucagen) 1 mg Q15M PRN IM DECREASED GLUCOSE; Start 12/16/16 at 18:00 Glucose (Glutose) 15 gm Q15M PRN BUCCAL DECREASED GLUCOSE; Start 12/16/16 at 18 :00 Morphine Sulfate (morphine) 1 mg Q4H PRN IV PAIN LEVEL 1-5; Start 12/20/16 at 11:30 Nitroglycerin (Nitroglycerin (Sl Tab) 0.4 Mg) 1 tab Q5M PRN SL ANGINA Last administered on 12/21/16 01:06; Admin Dose 1 TAB; Start 12/21/16 at 00:30 Clopidogrel Bisulfate (plaVIX) 75 mg DAILY PO Last administered on 12/30/16 08: 16; Admin Dose 75 MG; Start 12/22/16 at 09:00 Ondansetron HCl (Zofran Inj) 4 mg Q4H PRN IV NAUSEA AND/OR VOMITING; Start at 12:00 Zolpidem Tartrate (Ambien) 5 mg HS PRN PO INSOMNIA Last administered on 20:32; Admin Dose 5 MG; Start 12/22/16 at 22:00 Atorvastatin Calcium (Lipitor) 40 mg HS PO Last administered on 12/29/16 21:29 ; Admin Dose 40 MG; Start 12/23/16 at 21:00 Hydralazine HCl (Apresoline) 10 mg Q6H PRN IV ELEVATED BLOOD PRESSURE; Start at 08:00 Aspirin (Halfprin) 81 mg DAILY PO Last administered on 12/30/16 08:14; Admin Dose 81 MG; Start 12/25/16 at 09:00 Multivit/Ca Carb/ B Cmplx/FA/Prenat (Nadiya-Ozzie) 1 tab DAILY PO Last administered on 12/30/16 08:16; Admin Dose 1 TAB; Start 12/25/16 at 09:00 Acetaminophen (Tylenol Tab) 650 mg Q6H PRN PO PAIN AND OR ELEVATED TEMP; Start 12/25/16 at 08:30 Docusate Sodium (Colace) 200 mg DAILY PO Last administered on 12/26/16 08:37; Admin Dose 200 MG; Start 12/25/16 at 09:00 Levothyroxine Sodium (Synthroid) 75 mcg DAILY@06 PO Last administered on 06:29; Admin Dose 75 MCG; Start 12/27/16 at 06:00 Metoprolol Succinate (Toprol Xl) 50 mg BID PO Last administered on 12/30/16 08: 17; Admin Dose 50 MG; Start 12/26/16 at 09:00 Pantoprazole (Protonix Tab) 40 mg AM PO Last administered on 12/30/16 08:16; Admin Dose 40 MG; Start 12/26/16 at 09:00 Patient Own Medication 1 ea BID PO Last administered on 12/30/16 08:14; Admin Dose 1 EA; Start 12/27/16 at 13:00 Insulin Glargine (Lantus) 10 unit DAILY@20 SC Last administered on 12/29/16 21: 32; Admin Dose 10 UNIT; Start 12/26/16 at 20:00 Guaifenesin/ Dextromethorphan (Robitussin Dm Liquid Cup) 10 ml QID PRN PO cough Last administered on 12/26/16 21:36; Admin Dose 10 ML; Start 12/26/16 at 10 :30 Alprazolam (Xanax) 0.25 mg BID PO Last administered on 12/30/16 03:17; Admin Dose 0.25 MG; Start 12/27/16 at 12:30 Diagnostic Test (Pha) (Accu-Chek) 1 ea 02 XX ; Start 12/28/16 at 02:00 Hydralazine HCl (Apresoline) 10 mg TID PO Last administered on 12/30/16 12:43; Admin Dose 10 MG; Start 12/28/16 at 21:00 Amiodarone HCl (Cordarone) 200 mg QAM PO Last administered on 12/30/16 08:16; Admin Dose 200 MG; Start 12/30/16 at 09:00 Isosorbide Dinitrate (Isordil) 10 mg TID PO ; Start 12/30/16 at 21:00 Assessment/Plan Additional Assessment/Plan IMP: 1. s/p Respiratory Failure 2. s/p NSTEMI 3. CKD--improved 4. RLL infiltrate--? aspiration 5. Anemia 6. SBO RECS: 1. de-escalate abx 2. CPT/suctioning/BD's 3. Mobilize OOB 4. PT/OT 5. Am CXR ALONDRA LIN MD Dec 30, 2016 16:21
--- NOTE | 2016-12-30 16:36 | CONS ---
DATE OF ADMISSION: 12/16/2016 DATE OF CONSULTATION: CARDIAC ELECTROPHYSIOLOGY CONSULTATION HISTORY OF PRESENT ILLNESS: An 81-year-old male seen for arrhythmia evaluation. Old chart reviewed ; please see detailed history. The patient has history of coronary artery bypass grafting. He was admitted on current occasion with small bowel obstruction. Course was quite complicated with respir atory failure, renal failure, but he had a VFib arrest without electrolyte abnormality or provocatio n. He underwent angiography. There were diffuse lesions but nothing revascularizable. He has cont inued to improve. He is currently still on dialysis, but no complaints of chest pain or dyspnea. PAST MEDICAL HISTORY: Please see old chart for medications and remainder of history. This was revi ewed. PHYSICAL EXAMINATION: GENERAL: He appears his stated age. VITAL SIGNS: Stable. NECK: There is no jugular venous distention. LUNGS: Clear. HEART: Reveals trace murmur. ABDOMEN: Negative. EXTREMITIES: Negative. EKG shows sinus rhythm with a nonspecific IVCD. IMPRESSION: 1. Status post ventricular fibrillation arrest without clear provocation. 2. 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 3. Acute on chronic renal failure. 4. Status post small bowel obstruction. RECOMMENDATIONS: 1. Suggest continued treatment per renal, cardiology, hematology, ID. 2. Continue current medications. 3. Agree that the patient should receive an implantable defibrillator at some point. Decision in r eference to timing and use of a LifeVest until acute problems resolve will be discussed among physic ians. Dictated By: THAI SANDY/ROSANGELA Conf#: [id number] DID#: [id number]
--- NOTE | 2016-12-30 19:16 | RADRPT ---
PROCEDURE: XR Chest. CLINICAL INDICATION: Shortness of breath. TECHNIQUE: Chest x-ray, single view. COMPARISON: 12/28/2016. FINDINGS: The cardiac silhouette is magnified yet appears mildly enlarged. Aortic arch atherosclerotic calcif ication is present. Median sternotomy wires are in place. Pulmonary vascular congestion has slight ly improved. Improved expansion of the lungs is observed. Mild residual basilar atelectatic change s are present. IMPRESSION: Cardiomegaly and atherosclerosis. Diminished pulmonary vascular congestion. Improved expansion of the lungs with mild residual basilar atelectatic changes. RPTAT: HH .Meera Du MD, MD Date Time Electronically viewed and signed by .Meera Du MD, on 12/30/2016 19:16 .T/
[2016-12-30] MEDS: ATORVASTATIN 40 MG TAB PO SCH (21:33)
[2016-12-30] MEDS: INSULIN GLARGINE [LANtus] 3 ML PEN SC SCH (21:41)
[2016-12-31] VITALS (8 sets, daily range): BP systolic 130–153; BP diastolic 62–74; PULSE 67–83; RESP 14–20
[2016-12-31] MEDS: LEVALBUTEROL (NEB) 0.31 MG/3 ML AMP HHN SCH ×3 (01:30→21:15)
[2016-12-31] MEDS: ACCU-CHEK XX SCH (02:00)
[2016-12-31] MEDS: LEVOTHYROXINE 75 MCG TAB PO SCH (07:38)
[2016-12-31] MEDS: IPRATROPIUM (NEB) 0.5 MG/2.5 ML AMP HHN SCH ×3 (08:10→21:15)
[2016-12-31 08:27] LABS: CALCIUM 7.5 mg/dl (8.4-10.2); CREATININE 2.69 mg/dl (0.61-1.24); POTASSIUM 3.8 mmol/L (3.5-5.1)
--- NOTE | 2016-12-31 08:27 | CONS ---
DATE OF ADMISSION: 12/16/2016 DATE OF CONSULTATION: 12/31/2016 TYPE OF CONSULTATION: Hematology followup. SUBJECTIVE: Mr. Watson states he is feeling well. He has no new complaints. No shortness of breat h. No chest pain, no palpitations, no dizziness. SOCIAL HISTORY: The patient is apparently ambulating with of physical therapy. PHYSICAL EXAMINATION GENERAL: physical therapy. OBJECTIVE VITAL SIGNS: Temperature 98.2, pulse 68 per minute and regular, respirations 18, blood pressure 142 /68, pulse oximetry 97% on room air. SKIN: Pale with scattered ecchymosis. No petechiae or rashes. HEENT: Normocephalic. No evidence of trauma. Pupils equal, round, react to light and accommodatio n. Sclerae nonicteric. Oral mucosa is moist without lesions. NECK: Supple, no jugular venous distention or thyroid enlargement. CHEST: Clear to auscultation and percussion. There is a sternotomy scar present. NODES: No palpable lymphadenopathy. HEART: Regular sinus rhythm, no S3 or S4, murmurs. No rubs. ABDOMEN: Soft. No masses or ascites. EXTREMITIES: No clubbing or cyanosis. No edema, no palpable cords or Homans sign. NEUROLOGIC: Normal except for weakness. There are no laboratories available yet today. Yesterday, white count 12,200, absolute neutrophil c ount of 8700, hemoglobin 10.5, hematocrit 33.2 and platelet count 174,000. Also, on December 30, sodium 136, potassium 3.7, BUN 47, creatinine 2.68. ASSESSMENT: 1. Myelofibrosis. 2. Coronary artery disease, status post myocardial infarction. 3. Small-bowel obstruction. 4. Renal failure. The patient is tolerating Jakafi 5 mg twice a day. We will continue as hematologic picture remains stable. It is interesting that this patient does not have any splenomegaly. The patient is diuresing and hopefully this is an indication that there is a return of renal functio n. The patient apparently is to be dialyzed today. Dictated By: DARNELL AMARAL MD, SR/NTS Conf#: [id number] DID#: [id number]
[2016-12-31] MEDS: ASPIRIN (EC) 81 MG TAB PO SCH (08:47)
[2016-12-31] MEDS: AMIODARONE 200 MG TAB PO SCH (08:47)
[2016-12-31] MEDS: DOCUSATE SODIUM 100 MG CAP PO SCH (08:47)
[2016-12-31] MEDS: ISOSORBIDE DINITRATE 5 MG TAB PO SCH ×3 (08:47→20:22)
[2016-12-31] MEDS: PANTOPRAZOLE (EC) 40 MG TAB PO SCH (08:47)
[2016-12-31] MEDS: MULTIVIT/CA CARB/B CMPLX/FA TAB PO SCH (08:47)
[2016-12-31] MEDS: CLOPIDOGREL 75 MG TAB PO SCH (08:47)
[2016-12-31] MEDS: ALPRAZOLAM 0.25 MG TAB PO SCH ×2 (08:48→20:23)
[2016-12-31] MEDS: METOPROLOL (XL) 50 MG TAB PO SCH ×2 (08:48→20:23)
[2016-12-31] MEDS: HEPARIN 5,000 UNIT/0.5 ML VIAL SC SCH ×2 (08:50→20:27)
[2016-12-31] MEDS: INSULIN ASPART [NOVOLOG] 3 ML PEN SC SCH ×4 (08:51→20:40)
[2016-12-31] MEDS: RUXOLITINIB 5 MG PO SCH ×2 (08:56→20:41)
--- NOTE | 2016-12-31 10:27 | PN ---
Date/Time of Note Date/Time of Note DATE: 12/31/16 TIME: 10:22 Assessment/Plan VTE Prophylaxis VTE Prophylaxis Intervention: SCD's Lines/Catheters IV C[facility]ter Type (from [facility] Saline Lock Urinary Cath still in place: No Assessment/Plan Chief Complaint/Hosp Course #1 acute on chronic renal failure now on hemodialysis. His S creatinine is leveling off and his urine output is increased . Hopefully he will not need more hemodialysis . Labs in am . 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 Problems: Subjective 24 Hr Interval Summary Free Text/Dictation He is awake and alert Constitutional: improved, no complaints Respiratory: cough Cardiovascular: no complaints Gastrointestinal: no complaints Genitourinary: no complaints Neurologic: no complaints Exam/Review of Systems Vital Signs Vitals Vital Signs Date Time Temp Pulse Resp B/P Pulse Ox O2 Delivery O2 Flow Rate FiO2 12/31/16 08:13 88 20 98 21 12/31/16 08:00 98.2 153/74 Room Air 12/30/16 20:00 2.0 Intake and Output 12/30/16 12/30/16 12/31/16 15:00 23:00 07:00 Intake Total 950 ml 300 ml Output Total 650 ml 750 ml Balance 300 ml -450 ml Exam Constitutional: alert, oriented Neck: non-tender, supple Respiratory: congested cough Cardiovascular: regular rate and rhythm Gastrointestinal: soft Extremities: edema Results Result Diagram: 12/30/16 0525 12/31/16 0705 Results 24 hrs Laboratory Tests Test 12/30/16 12:43 12/30/16 17:25 12/30/16 21:28 12/31/16 02:08 Bedside Glucose 211 184 210 245 H Test 12/31/16 07:05 12/31/16 08:07 Sodium Level 136 Potassium Level 3.8 Chloride Level 105 Carbon Dioxide Level 21 Anion Gap 14 Blood Urea Nitrogen 48 H Creatinine 2.69 H Glucose Level 203 Calcium Level 7.5 L Bedside Glucose 213 Medications Medications Current Medications Ondansetron HCl (Zofran Inj) 4 mg Q6H PRN IV NAUSEA AND/OR VOMITING; Start at 16:00 Bisacodyl (Dulcolax Supp) 10 mg DAILY PRN [place] CONSTIPATION; Start 12/16/16 at 16 :00 Heparin Sodium (Porcine) (Heparin (5000 Units/0.5 ml)) 5,000 unit Q12 SC Last administered on 12/31/16 08:50; Admin Dose 5,000 UNIT; Start 12/16/16 at 21:00 Miscellaneous Information 1 ea NOTE XX ; Start 12/16/16 at 18:00 Glucose (Glutose) 15 gm Q15M PRN PO DECREASED GLUCOSE; Start 12/16/16 at 18:00 Glucose (Glutose) 22.5 gm Q15M PRN PO DECREASED GLUCOSE; Start 12/16/16 at 18: 00 Dextrose (D50w Syringe) 25 ml Q15M PRN IV DECREASED GLUCOSE; Start 12/16/16 at 18:00 Dextrose (D50w Syringe) 50 ml Q15M PRN IV DECREASED GLUCOSE; Start 12/16/16 at 18:00 Glucagon (Glucagen) 1 mg Q15M PRN IM DECREASED GLUCOSE; Start 12/16/16 at 18:00 Glucose (Glutose) 15 gm Q15M PRN BUCCAL DECREASED GLUCOSE; Start 12/16/16 at 18 :00 Morphine Sulfate (morphine) 1 mg Q4H PRN IV PAIN LEVEL 1-5; Start 12/20/16 at 11:30 Nitroglycerin (Nitroglycerin (Sl Tab) 0.4 Mg) 1 tab Q5M PRN SL ANGINA Last administered on 12/21/16 01:06; Admin Dose 1 TAB; Start 12/21/16 at 00:30 Clopidogrel Bisulfate (plaVIX) 75 mg DAILY PO Last administered on 12/31/16 08 :47; Admin Dose 75 MG; Start 12/22/16 at 09:00 Ondansetron HCl (Zofran Inj) 4 mg Q4H PRN IV NAUSEA AND/OR VOMITING; Start at 12:00 Zolpidem Tartrate (Ambien) 5 mg HS PRN PO INSOMNIA Last administered on 20:32; Admin Dose 5 MG; Start 12/22/16 at 22:00 Atorvastatin Calcium (Lipitor) 40 mg HS PO Last administered on 12/30/16 21:33 ; Admin Dose 40 MG; Start 12/23/16 at 21:00 Hydralazine HCl (Apresoline) 10 mg Q6H PRN IV ELEVATED BLOOD PRESSURE; Start at 08:00 Aspirin (Halfprin) 81 mg DAILY PO Last administered on 12/31/16 08:47; Admin Dose 81 MG; Start 12/25/16 at 09:00 Multivit/Ca Carb/ B Cmplx/FA/Prenat (Nadiya-Ozzie) 1 tab DAILY PO Last administered on 12/31/16 08:47; Admin Dose 1 TAB; Start 12/25/16 at 09:00 Acetaminophen (Tylenol Tab) 650 mg Q6H PRN PO PAIN AND OR ELEVATED TEMP; Start 12/25/16 at 08:30 Docusate Sodium (Colace) 200 mg DAILY PO Last administered on 12/31/16 08:47; Admin Dose 200 MG; Start 12/25/16 at 09:00 Levothyroxine Sodium (Synthroid) 75 mcg DAILY@06 PO Last administered on 07:38; Admin Dose 75 MCG; Start 12/27/16 at 06:00 Metoprolol Succinate (Toprol Xl) 50 mg BID PO Last administered on 12/31/16 08 :48; Admin Dose 50 MG; Start 12/26/16 at 09:00 Pantoprazole (Protonix Tab) 40 mg AM PO Last administered on 12/31/16 08:47; Admin Dose 40 MG; Start 12/26/16 at 09:00 Patient Own Medication 1 ea BID PO Last administered on 12/31/16 08:56; Admin Dose 1 EA; Start 12/27/16 at 13:00 Insulin Glargine (Lantus) 10 unit DAILY@20 SC Last administered on 12/30/16 21: 41; Admin Dose 10 UNIT; Start 12/26/16 at 20:00 Guaifenesin/ Dextromethorphan (Robitussin Dm Liquid Cup) 10 ml QID PRN PO cough Last administered on 12/26/16 21:36; Admin Dose 10 ML; Start 12/26/16 at 10 :30 Alprazolam (Xanax) 0.25 mg BID PO Last administered on 12/30/16 03:17; Admin Dose 0.25 MG; Start 12/27/16 at 12:30 Diagnostic Test (Pha) (Accu-Chek) 1 ea 02 XX ; Start 12/28/16 at 02:00 Hydralazine HCl (Apresoline) 10 mg TID PO Last administered on 12/31/16 08:48 ; Admin Dose 10 MG; Start 12/28/16 at 21:00 Amiodarone HCl (Cordarone) 200 mg QAM PO Last administered on 12/31/16 08:47; Admin Dose 200 MG; Start 12/30/16 at 09:00 Isosorbide Dinitrate (Isordil) 10 mg TID PO Last administered on 12/31/16 08: 47; Admin Dose 10 MG; Start 12/30/16 at 21:00 SALEEM WALKER MD Dec 31, 2016 10:27
--- NOTE | 2016-12-31 16:41 | CONS ---
Date/Time of Note Date/Time of Note DATE: 12/31/16 TIME: 16:37 Assessment/Plan Assessment/Plan Chief Complaint/Hosp Course Impression: - hypovolemic shock- resolved - NSTEMI- improved, no further ischemia - A/CKD- likely from shock + possible contrast nephropathy. s/p dialysis, now withimrpoved urine outpt. watching for need for further iHD - Acute on chronic systolic heart failure- 2/2 nstemi, fluid resuscitation. fluid mgmt with dialysis given a/ckd - Multi vessel coronary artery disease - mid [id number] severe stenosis, likely related to compression from surgical clips. no further interventions at this time - SBO now resolved - Respiratory failure- extubated, but with cont congestion requiring o2 - VT/VF event - on amiodarone, no recurrence Recommendations: - cont asa 81mg daily and plavix 75 mg daily given NSTEMI - cont fluid removal with diuretics as needed, may need iHD still however uop improved and bun/cr stable. - Maintain K>4, Mg>2 - Continue on amiodarone PO given VT/VF - cont metoprolol xl 50mg po bid - cont isosorbide/hydralazine given ICM and unable to tolerate acei/arb or spironolactone at this time - will consider ICD placement after stabilization, EP following. pt tentatively scheduled for depending on clinical course. Problems: Consultation Date/Type/Reason Admit Date/Time Dec 16, 2016 at 17:40 Type of Consultation: cardiology Referring Provider: JULIANNE ESTRELLA MD 24 HR Interval Summary Free Text/Dictation no acute events. pt denies cp/sob. ambulatory without cp/sob. no pnd, orhtopnea , still with R dialysis cathter in groin, denies fever, chills sweats. telel reviewed; no events. nsr. Detailed Summary ENT: no complaints Respiratory: no complaints Cardiovascular: no complaints Exam/Review of Systems Vital Signs Vitals Vital Signs Date Time Temp Pulse Resp B/P Pulse Ox O2 Delivery O2 Flow Rate FiO2 12/31/16 16:00 98.8 83 14 130/62 95 Room Air 12/31/16 08:13 21 12/30/16 20:00 2.0 Intake and Output 12/30/16 12/30/16 12/31/16 15:00 23:00 07:00 Intake Total 950 ml 300 ml Output Total 650 ml 750 ml Balance 300 ml -450 ml Exam HEENT; no JVD, no HJR, carotids 2 over 4+ without bruits. Chest: Clear to auscultation and percussion, no rales, wheezes or rhonchi. Cardiac: S4, S1, S2 with normal physiologic splitting, 1/6 systolic ejection murmur, no rub click or diastolic murmur noted. Abdominal: Bowel sounds positive, soft nontender, no abdominal bruit noted, no hepatosplenomegaly. Extremities: No cyanosis, clubbing, or edema. Negative Homans sign or palpable cords. Pulses: 2/4 pulses diffusely no bruits noted. Results Result Diagram: 12/30/16 0525 12/31/16 0705 Results 24 hrs Laboratory Tests Test 12/30/16 17:25 12/30/16 21:28 12/31/16 02:08 12/31/16 07:05 Bedside Glucose 184 210 245 H Sodium Level 136 Potassium Level 3.8 Chloride Level 105 Carbon Dioxide Level 21 Anion Gap 14 Blood Urea Nitrogen 48 H Creatinine 2.69 H Glucose Level 203 Calcium Level 7.5 L Test 12/31/16 08:07 12/31/16 12:32 Bedside Glucose 213 262 H Medications Medications Current Medications Ondansetron HCl (Zofran Inj) 4 mg Q6H PRN IV NAUSEA AND/OR VOMITING; Start at 16:00 Bisacodyl (Dulcolax Supp) 10 mg DAILY PRN [place] CONSTIPATION; Start 12/16/16 at 16 :00 Heparin Sodium (Porcine) (Heparin (5000 Units/0.5 ml)) 5,000 unit Q12 SC Last administered on 12/31/16t 08:50; Admin Dose 5,000 UNIT; Start 12/16/16 at 21:00 Miscellaneous Information 1 ea NOTE XX ; Start 12/16/16 at 18:00 Glucose (Glutose) 15 gm Q15M PRN PO DECREASED GLUCOSE; Start 12/16/16 at 18:00 Glucose (Glutose) 22.5 gm Q15M PRN PO DECREASED GLUCOSE; Start 12/16/16 at 18: 00 Dextrose (D50w Syringe) 25 ml Q15M PRN IV DECREASED GLUCOSE; Start 12/16/16 at 18:00 Dextrose (D50w Syringe) 50 ml Q15M PRN IV DECREASED GLUCOSE; Start 12/16/16 at 18:00 Glucagon (Glucagen) 1 mg Q15M PRN IM DECREASED GLUCOSE; Start 12/16/16 at 18:00 Glucose (Glutose) 15 gm Q15M PRN BUCCAL DECREASED GLUCOSE; Start 12/16/16 at 18 :00 Morphine Sulfate (morphine) 1 mg Q4H PRN IV PAIN LEVEL 1-5; Start 12/20/16 at 11:30 Nitroglycerin (Nitroglycerin (Sl Tab) 0.4 Mg) 1 tab Q5M PRN SL ANGINA Last administered on 12/21/16 01:06; Admin Dose 1 TAB; Start 12/21/16 at 00:30 Clopidogrel Bisulfate (plaVIX) 75 mg DAILY PO Last administered on 12/31/16 08 :47; Admin Dose 75 MG; Start 12/22/16 at 09:00 Ondansetron HCl (Zofran Inj) 4 mg Q4H PRN IV NAUSEA AND/OR VOMITING; Start at 12:00 Zolpidem Tartrate (Ambien) 5 mg HS PRN PO INSOMNIA Last administered on 20:32; Admin Dose 5 MG; Start 12/22/16 at 22:00 Atorvastatin Calcium (Lipitor) 40 mg HS PO Last administered on 12/30/16 21:33 ; Admin Dose 40 MG; Start 12/23/16 at 21:00 Hydralazine HCl (Apresoline) 10 mg Q6H PRN IV ELEVATED BLOOD PRESSURE; Start at 08:00 Aspirin (Halfprin) 81 mg DAILY PO Last administered on 12/31/16 08:47; Admin Dose 81 MG; Start 12/25/16 at 09:00 Multivit/Ca Carb/ B Cmplx/FA/Prenat (Nadiya-Ozzie) 1 tab DAILY PO Last administered on 12/31/16 08:47; Admin Dose 1 TAB; Start 12/25/16 at 09:00 Acetaminophen (Tylenol Tab) 650 mg Q6H PRN PO PAIN AND OR ELEVATED TEMP; Start 12/25/16 at 08:30 Docusate Sodium (Colace) 200 mg DAILY PO Last administered on 12/31/16 08:47; Admin Dose 200 MG; Start 12/25/16 at 09:00 Levothyroxine Sodium (Synthroid) 75 mcg DAILY@06 PO Last administered on 07:38; Admin Dose 75 MCG; Start 12/27/16 at 06:00 Metoprolol Succinate (Toprol Xl) 50 mg BID PO Last administered on 12/31/16 08 :48; Admin Dose 50 MG; Start 12/26/16 at 09:00 Pantoprazole (Protonix Tab) 40 mg AM PO Last administered on 12/31/16 08:47; Admin Dose 40 MG; Start 12/26/16 at 09:00 Patient Own Medication 1 ea BID PO Last administered on 12/31/16 08:56; Admin Dose 1 EA; Start 12/27/16 at 13:00 Insulin Glargine (Lantus) 10 unit DAILY@20 SC Last administered on 12/30/16 21: 41; Admin Dose 10 UNIT; Start 12/26/16 at 20:00 Guaifenesin/ Dextromethorphan (Robitussin Dm Liquid Cup) 10 ml QID PRN PO cough Last administered on 12/26/16 21:36; Admin Dose 10 ML; Start 12/26/16 at 10 :30 Alprazolam (Xanax) 0.25 mg BID PO Last administered on 12/30/16 03:17; Admin Dose 0.25 MG; Start 12/27/16 at 12:30 Diagnostic Test (Pha) (Accu-Chek) 1 ea 02 XX ; Start 12/28/16 at 02:00 Hydralazine HCl (Apresoline) 10 mg TID PO Last administered on 12/31/16 12:43 ; Admin Dose 10 MG; Start 12/28/16 at 21:00 Amiodarone HCl (Cordarone) 200 mg QAM PO Last administered on 12/31/16 08:47; Admin Dose 200 MG; Start 12/30/16 at 09:00 Isosorbide Dinitrate (Isordil) 10 mg TID PO Last administered on 12/31/16 12: 43; Admin Dose 10 MG; Start 12/30/16 at 21:00 Procedures Procedures cxr images reviewed improved pulm congestion SAMY ROSALES Dec 31, 2016 16:41
[2016-12-31] MEDS: ATORVASTATIN 40 MG TAB PO SCH (20:20)
[2016-12-31] MEDS: INSULIN GLARGINE [LANtus] 3 ML PEN SC SCH (20:33)
[2017-01-01] VITALS (12 sets, daily range): BP systolic 121–158; BP diastolic 58–87; PULSE 66–73; RESP 18–72
[2017-01-01] MEDS: LEVALBUTEROL (NEB) 0.31 MG/3 ML AMP HHN SCH (01:27)
[2017-01-01] MEDS: ACCU-CHEK XX SCH (02:00)
[2017-01-01] MEDS: morphine 2 MG INJ IV PRN (02:11)
[2017-01-01] MEDS: LEVOTHYROXINE 75 MCG TAB PO SCH (06:00)
--- NOTE | 2017-01-01 08:21 | PN ---
Date/Time of Note Date/Time of Note DATE: 01/01/17 TIME: 08:17 Assessment/Plan VTE Prophylaxis VTE Prophylaxis Intervention: other Lines/Catheters IV Catheter Type (from Nrsg): Saline Lock Urinary Cath still in place: No Assessment/Plan Assessment/Plan 1. Acute [place], stable, without evid of chf or rec arrythnmia, rev with cards re: defibrillator 2. Acute and chronic renal failure, await labs today regarding need for HD, vasc cath still in place. 3. Myelofibrosis, Hct has been stable 4. Diabetic control is not optimal, change to Levemir [employer] ac insulin coverage 5. Case management called re---[facility]F for needed PT before returning home Subjective 24 Hr Interval Summary Cardiovascular: No chest pain, No palpitations Gastrointestinal: No constipation, No diarrhea Genitourinary: no complaints Exam/Review of Systems Vital Signs Vitals Vital Signs Date Time Temp Pulse Resp B/P Pulse Ox O2 Delivery O2 Flow Rate FiO2 01/01/17 07:38 97.5 71 20 149/87 98 01/01/17 01:26 21 12/31/16 20:00 Nasal Cannula 2.0 Intake and Output 12/31/16 12/31/16 01/01/17 15:00 23:00 07:00 Intake Total 800 ml Output Total 500 ml 700 ml Balance 300 ml -700 ml Exam Neck: jvd (mild hjr) Cardiovascular: regular rate and rhythm Gastrointestinal: soft Extremities: edema (and no calf tend) Results Result Diagram: 12/30/16 0525 12/31/16 0705 Results 24 hrs Laboratory Tests Test 12/31/16 12:32 12/31/16 17:10 12/31/16 19:34 01/01/17 02:16 Bedside Glucose 262 H 212 243 H 245 H Test 01/01/17 06:40 01/01/17 07:56 Bedside Glucose 289 H 299 H Medications Medications Current Medications Ondansetron HCl (Zofran Inj) 4 mg Q6H PRN IV NAUSEA AND/OR VOMITING; Start at 16:00 Bisacodyl (Dulcolax Supp) 10 mg DAILY PRN [place] CONSTIPATION; Start 12/16/16 at 16 :00 Heparin Sodium (Porcine) (Heparin (5000 Units/0.5 ml)) 5,000 unit Q12 SC Last administered on 12/31/16 20:27; Admin Dose 5,000 UNIT; Start 12/16/16 at 21:00 Miscellaneous Information 1 ea NOTE XX ; Start 12/16/16 at 18:00 Glucose (Glutose) 15 gm Q15M PRN PO DECREASED GLUCOSE; Start 12/16/16 at 18:00 Glucose (Glutose) 22.5 gm Q15M PRN PO DECREASED GLUCOSE; Start 12/16/16 at 18: 00 Dextrose (D50w Syringe) 25 ml Q15M PRN IV DECREASED GLUCOSE; Start 12/16/16 at 18:00 Dextrose (D50w Syringe) 50 ml Q15M PRN IV DECREASED GLUCOSE; Start 12/16/16 at 18:00 Glucagon (Glucagen) 1 mg Q15M PRN IM DECREASED GLUCOSE; Start 12/16/16 at 18:00 Glucose (Glutose) 15 gm Q15M PRN BUCCAL DECREASED GLUCOSE; Start 12/16/16 at 18 :00 Morphine Sulfate (morphine) 1 mg Q4H PRN IV PAIN LEVEL 1-5 Last administered on 01/01/17 02:11; Admin Dose 1 MG; Start 12/20/16 at 11:30 Nitroglycerin (Nitroglycerin (Sl Tab) 0.4 Mg) 1 tab Q5M PRN SL ANGINA Last administered on 12/21/16 01:06; Admin Dose 1 TAB; Start 12/21/16 at 00:30 Clopidogrel Bisulfate (plaVIX) 75 mg DAILY PO Last administered on 12/31/16 08 :47; Admin Dose 75 MG; Start 12/22/16 at 09:00 Ondansetron HCl (Zofran Inj) 4 mg Q4H PRN IV NAUSEA AND/OR VOMITING; Start at 12:00 Zolpidem Tartrate (Ambien) 5 mg HS PRN PO INSOMNIA Last administered on 20:32; Admin Dose 5 MG; Start 12/22/16 at 22:00 Atorvastatin Calcium (Lipitor) 40 mg HS PO Last administered on 12/31/16 20:20 ; Admin Dose 40 MG; Start 12/23/16 at 21:00 Hydralazine HCl (Apresoline) 10 mg Q6H PRN IV ELEVATED BLOOD PRESSURE; Start at 08:00 Aspirin (Halfprin) 81 mg DAILY PO Last administered on 12/31/16 08:47; Admin Dose 81 MG; Start 12/25/16 at 09:00 Multivit/Ca Carb/ B Cmplx/FA/Prenat (Nadiya-Ozzie) 1 tab DAILY PO Last administered on 12/31/16 08:47; Admin Dose 1 TAB; Start 12/25/16 at 09:00 Acetaminophen (Tylenol Tab) 650 mg Q6H PRN PO PAIN AND OR ELEVATED TEMP; Start 12/25/16 at 08:30 Docusate Sodium (Colace) 200 mg DAILY PO Last administered on 12/31/16 08:47; Admin Dose 200 MG; Start 12/25/16 at 09:00 Levothyroxine Sodium (Synthroid) 75 mcg DAILY@06 PO Last administered on 06:00; Admin Dose 75 MCG; Start 12/27/16 at 06:00 Metoprolol Succinate (Toprol Xl) 50 mg BID PO Last administered on 12/31/16 20 :23; Admin Dose 50 MG; Start 12/26/16 at 09:00 Pantoprazole (Protonix Tab) 40 mg AM PO Last administered on 12/31/16 08:47; Admin Dose 40 MG; Start 12/26/16 at 09:00 Patient Own Medication 1 ea BID PO Last administered on 12/31/16 20:41; Admin Dose 1 EA; Start 12/27/16 at 13:00 Insulin Glargine (Lantus) 10 unit DAILY@20 SC Last administered on 12/31/16 20 :33; Admin Dose 10 UNIT; Start 12/26/16 at 20:00 Guaifenesin/ Dextromethorphan (Robitussin Dm Liquid Cup) 10 ml QID PRN PO cough Last administered on 12/26/16 21:36; Admin Dose 10 ML; Start 12/26/16 at 10 :30 Alprazolam (Xanax) 0.25 mg BID PO Last administered on 12/31/16 20:23; Admin Dose 0.25 MG; Start 12/27/16 at 12:30 Diagnostic Test (Pha) (Accu-Chek) 1 ea 02 XX Last administered on 01/01/17 02: 00; Admin Dose 1 EA; Start 12/28/16 at 02:00 Hydralazine HCl (Apresoline) 10 mg TID PO Last administered on 12/31/16 20:23 ; Admin Dose 10 MG; Start 12/28/16 at 21:00 Amiodarone HCl (Cordarone) 200 mg QAM PO Last administered on 12/31/16 08:47; Admin Dose 200 MG; Start 12/30/16 at 09:00 Isosorbide Dinitrate (Isordil) 10 mg TID PO Last administered on 12/31/16 20: 22; Admin Dose 10 MG; Start 12/30/16 at 21:00 JULIANNE ESTRELLA MD Jan 01, 2017 08:21
[2017-01-01] MEDS: ASPIRIN (EC) 81 MG TAB PO SCH (08:28)
[2017-01-01] MEDS: RUXOLITINIB 5 MG PO SCH ×2 (08:28→21:04)
[2017-01-01] MEDS: DOCUSATE SODIUM 100 MG CAP PO SCH (08:29)
[2017-01-01] MEDS: AMIODARONE 200 MG TAB PO SCH (08:30)
[2017-01-01] MEDS: METOPROLOL (XL) 50 MG TAB PO SCH ×2 (08:30→20:53)
[2017-01-01] MEDS: MULTIVIT/CA CARB/B CMPLX/FA TAB PO SCH (08:30)
[2017-01-01] MEDS: ISOSORBIDE DINITRATE 5 MG TAB PO SCH ×3 (08:31→20:52)
[2017-01-01] MEDS: PANTOPRAZOLE (EC) 40 MG TAB PO SCH (08:31)
[2017-01-01] MEDS: CLOPIDOGREL 75 MG TAB PO SCH (08:31)
[2017-01-01] MEDS: ALPRAZOLAM 0.25 MG TAB PO SCH ×2 (08:32→21:00)
[2017-01-01] MEDS: HEPARIN 5,000 UNIT/0.5 ML VIAL SC SCH ×2 (08:34→20:57)
[2017-01-01 08:39] LABS: ADD SCAN DIFF NO
[2017-01-01] MEDS: INSULIN ASPART [NOVOLOG] 3 ML PEN SC SCH ×3 (08:39→17:32)
[2017-01-01 08:41] LABS: ABNORMAL IP MESSAGE 1; BASOPHILS % 0.4 % (0.0-2.0); EOSINOPHILS # 0.2 10^3/ul (0.0-0.5); EOSINOPHILS % 2.3 % (0.0-7.0); HEMATOCRIT 33.8 % (42.0-52.0); HEMOGLOBIN 10.6 g/dl (14.0-18.0); LYMPHOCYTES # 1.2 10^3/ul (0.8-2.9); LYMPHOCYTES % 11.2 % (15.0-51.0); MEAN CORPUSCULAR HEMOGLOBIN 28.7 pg (29.0-33.0); MEAN CORPUSCULAR HGB CONC 31.4 g/dl (32.0-37.0); MEAN CORPUSCULAR VOLUME 91.6 fl (82.0-101.0); MEAN PLATELET VOLUME 12.6 fl (7.4-10.4); MONOCYTE # 0.7 10^3/ul (0.3-0.9); MONOCYTES % 6.2 % (0.0-11.0); NEUTROPHIL # 7.7 10^3/ul (1.6-7.5); NEUTROPHILS % 73.1 % (39.0-77.0); PLATELET COUNT 216 10^3/UL (140-415); RED BLOOD COUNT 3.69 10^6/ul (4.70-6.10); WHITE BLOOD COUNT 10.5 10^3/ul (4.8-10.8)
[2017-01-01 09:00] LABS: ALBUMIN 3.6 g/dl (3.3-4.9); ALBUMIN/GLOBULIN RATIO 1.24; BILIRUBIN,INDIRECT 0.3 mg/dl (0-1.1); BILIRUBIN,TOTAL 0.3 mg/dl (0.2-1.3); CALCIUM 7.6 mg/dl (8.4-10.2); CREATININE 2.43 mg/dl (0.61-1.24); MAGNESIUM 1.8 mg/dl (1.7-2.5); PHOSPHORUS 3.5 mg/dl (2.5-4.9); TOTAL PROTEIN 6.5 g/dl (6.1-8.1)
--- NOTE | 2017-01-01 10:04 | CONS ---
Date/Time of Note Date/Time of Note DATE: 01/01/17 TIME: 10:00 Assessment/Plan Assessment/Plan Chief Complaint/Hosp Course Impression: - hypovolemic shock- resolved - NSTEMI- improved, no further ischemia - A/CKD- likely from shock + possible contrast nephropathy. s/p dialysis, now with imrpoved urine outpt. and stable bun/cr - Acute on chronic systolic heart failure- 2/2 nstemi, fluid resuscitation. will keep even with prn diuretic - Multi vessel coronary artery disease - mid [id number] severe stenosis, likely related to compression from surgical clips. no further interventions at this time - SBO now resolved - Respiratory failure- extubated, but with cont congestion requiring o2 - VT/VF event - on amiodarone, no recurrence Recommendations: - cont asa 81mg daily and plavix 75 mg daily given NSTEMI - prn diuretic - Maintain K>4, Mg>2 - Continue on amiodarone PO given VT/VF - inc metoprolol xl to 75 mg po bid - cont isosorbide/hydralazine and titrate4 given ICM and unable to tolerate acei /arb or spironolactone at this time - pt seen by EP will need ICD placement for secondary prevention, if no further dialysis needed please remove temporary groin catheter and plan for ICD placement depending on clinical course. Problems: Consultation Date/Type/Reason Admit Date/Time Dec 16, 2016 at 17:40 Type of Consultation: cardiology Referring Provider: JULIANNE ESTRELLA MD 24 HR Interval Summary Free Text/Dictation no acute events. pt denies cp/sob. no iHD yesterday tele reviewed: NSR no VT Detailed Summary Respiratory: no complaints Cardiovascular: no complaints Gastrointestinal: no complaints Exam/Review of Systems Vital Signs Vitals Vital Signs Date Time Temp Pulse Resp B/P Pulse Ox O2 Delivery O2 Flow Rate FiO2 01/01/17 08:39 73 01/01/17 07:38 97.5 20 149/87 98 01/01/17 01:26 21 12/31/16 20:00 Nasal Cannula 2.0 Intake and Output 12/31/16 12/31/16 01/01/17 15:00 23:00 07:00 Intake Total 800 ml Output Total 500 ml 700 ml Balance 300 ml -700 ml Exam HEENT; no JVD, no HJR, carotids 2 over 4+ without bruits. Chest: Clear to auscultation and percussion, no rales, wheezes or rhonchi. Cardiac: S4, S1, S2 with normal physiologic splitting, 1/6 systolic ejection murmur, no rub click or diastolic murmur noted. Abdominal: Bowel sounds positive, soft nontender, no abdominal bruit noted, no hepatosplenomegaly. Extremities: No cyanosis, clubbing, or edema. Negative Homans sign or palpable cords. Pulses: 2/4 pulses diffusely no bruits noted. Results Result Diagram: 01/01/17 0732 01/01/17 0732 Results 24 hrs Laboratory Tests Test 12/31/16 12:32 12/31/16 17:10 12/31/16 19:34 01/01/17 02:16 Bedside Glucose 262 H 212 243 H 245 H Test 01/01/17 06:40 01/01/17 07:32 01/01/17 07:56 Bedside Glucose 289 H 299 H White Blood Count 10.5 Red Blood Count 3.69 L Hemoglobin 10.6 L Hematocrit 33.8 L Mean Corpuscular Volume 91.6 Mean Corpuscular Hemoglobin 28.7 L Mean Corpuscular Hemoglobin Concent 31.4 L Red Cell Distribution Width 18.0 H Platelet Count 216 # Mean Platelet Volume 12.6 H Neutrophils % 73.1 Lymphocytes % 11.2 L Monocytes % 6.2 Eosinophils % 2.3 Basophils % 0.4 Nucleated Red Blood Cells % 0.0 Neutrophils # 7.7 H Lymphocytes # 1.2 Monocytes # 0.7 Eosinophils # 0.2 Basophils # 0.0 Nucleated Red Blood Cells # 0.0 Sodium Level 135 Potassium Level 4.0 Chloride Level 104 Carbon Dioxide Level 22 Anion Gap 13 Blood Urea Nitrogen 49 H Creatinine 2.43 H Glucose Level 295 H Calcium Level 7.6 L Phosphorus Level 3.5 Magnesium Level 1.8 Total Bilirubin 0.3 Direct Bilirubin 0.00 Indirect Bilirubin 0.3 Aspartate Amino Transf (AST/SGOT) 42 Alanine Aminotransferase (ALT/SGPT) 56 Alkaline Phosphatase 116 Total Protein 6.5 Albumin 3.6 Globulin 2.90 Albumin/Globulin Ratio 1.24 Medications Medications Current Medications Ondansetron HCl (Zofran Inj) 4 mg Q6H PRN IV NAUSEA AND/OR VOMITING; Start at 16:00 Bisacodyl (Dulcolax Supp) 10 mg DAILY PRN [place] CONSTIPATION; Start 12/16/16 at 16 :00 Heparin Sodium (Porcine) (Heparin (5000 Units/0.5 ml)) 5,000 unit Q12 SC Last administered on 01/01/17 08:34; Admin Dose 5,000 UNIT; Start 12/16/16 at 21:00 Miscellaneous Information 1 ea NOTE XX ; Start 12/16/16 at 18:00 Glucose (Glutose) 15 gm Q15M PRN PO DECREASED GLUCOSE; Start 12/16/16 at 18:00 Glucose (Glutose) 22.5 gm Q15M PRN PO DECREASED GLUCOSE; Start 12/16/16 at 18: 00 Dextrose (D50w Syringe) 25 ml Q15M PRN IV DECREASED GLUCOSE; Start 12/16/16 at 18:00 Dextrose (D50w Syringe) 50 ml Q15M PRN IV DECREASED GLUCOSE; Start 12/16/16 at 18:00 Glucagon (Glucagen) 1 mg Q15M PRN IM DECREASED GLUCOSE; Start 12/16/16 at 18:00 Glucose (Glutose) 15 gm Q15M PRN BUCCAL DECREASED GLUCOSE; Start 12/16/16 at 18 :00 Morphine Sulfate (morphine) 1 mg Q4H PRN IV PAIN LEVEL 1-5 Last administered on 01/01/17 02:11; Admin Dose 1 MG; Start 12/20/16 at 11:30 Nitroglycerin (Nitroglycerin (Sl Tab) 0.4 Mg) 1 tab Q5M PRN SL ANGINA Last administered on 12/21/16 01:06; Admin Dose 1 TAB; Start 12/21/16 at 00:30 Clopidogrel Bisulfate (plaVIX) 75 mg DAILY PO Last administered on 01/01/17 08 :31; Admin Dose 75 MG; Start 12/22/16 at 09:00 Ondansetron HCl (Zofran Inj) 4 mg Q4H PRN IV NAUSEA AND/OR VOMITING; Start at 12:00 Zolpidem Tartrate (Ambien) 5 mg HS PRN PO INSOMNIA Last administered on 20:32; Admin Dose 5 MG; Start 12/22/16 at 22:00 Atorvastatin Calcium (Lipitor) 40 mg HS PO Last administered on 12/31/16 20:20 ; Admin Dose 40 MG; Start 12/23/16 at 21:00 Hydralazine HCl (Apresoline) 10 mg Q6H PRN IV ELEVATED BLOOD PRESSURE; Start at 08:00 Aspirin (Halfprin) 81 mg DAILY PO Last administered on 01/01/17 08:28; Admin Dose 81 MG; Start 12/25/16 at 09:00 Multivit/Ca Carb/ B Cmplx/FA/Prenat (Naidya-Ozzie) 1 tab DAILY PO Last administered on 01/01/17 08:30; Admin Dose 1 TAB; Start 12/25/16 at 09:00 Acetaminophen (Tylenol Tab) 650 mg Q6H PRN PO PAIN AND OR ELEVATED TEMP; Start 12/25/16 at 08:30 Docusate Sodium (Colace) 200 mg DAILY PO Last administered on 01/01/17 08:29; Admin Dose 200 MG; Start 12/25/16 at 09:00 Levothyroxine Sodium (Synthroid) 75 mcg DAILY@06 PO Last administered on 06:00; Admin Dose 75 MCG; Start 12/27/16 at 06:00 Metoprolol Succinate (Toprol Xl) 50 mg BID PO Last administered on 01/01/17 08 :30; Admin Dose 50 MG; Start 12/26/16 at 09:00 Pantoprazole (Protonix Tab) 40 mg AM PO Last administered on 01/01/17 08:31; Admin Dose 40 MG; Start 12/26/16 at 09:00 Patient Own Medication 1 ea BID PO Last administered on 01/01/17 08:28; Admin Dose 1 EA; Start 12/27/16 at 13:00 Alprazolam (Xanax) 0.25 mg BID PO Last administered on 12/31/16 20:23; Admin Dose 0.25 MG; Start 12/27/16 at 12:30 Diagnostic Test (Pha) (Accu-Chek) 1 ea 02 XX Last administered on 01/01/17 02: 00; Admin Dose 1 EA; Start 12/28/16 at 02:00 Hydralazine HCl (Apresoline) 10 mg TID PO Last administered on 01/01/17 08:29 ; Admin Dose 10 MG; Start 12/28/16 at 21:00 Amiodarone HCl (Cordarone) 200 mg QAM PO Last administered on 01/01/17 08:30; Admin Dose 200 MG; Start 12/30/16 at 09:00 Isosorbide Dinitrate (Isordil) 10 mg TID PO Last administered on 01/01/17 08: 31; Admin Dose 10 MG; Start 12/30/16 at 21:00 Insulin Detemir (Levemir) 40 unit DAILY@20 SC ; Start 01/01/17 at 20:00 SAMY ROSALES Jan 01, 2017 10:04
--- NOTE | 2017-01-01 10:20 | RADRPT ---
Vent Rate: 65 bpm RR Interval: 0 msec HI Interval: 130 msec QRS Duration: 152 msec QT Interval: 492 msec QTC Interval: 511 msec P-R-T [place]: 5 - -44 - 160 degrees ? Normal sinus rhythm Left axis deviation N/S IVCD and N/S ST/T changes Abnormal ECG Electronically Signed By: Thom Carlson [id number]
--- NOTE | 2017-01-01 11:15 | PN ---
Date/Time of Note Date/Time of Note DATE: 01/01/17 TIME: 11:11 Assessment/Plan Lines/Catheters IV Catheter Type (from [facility]): Saline Lock Marcum in Place (from [facility]): No Assessment/Plan Chief Complaint/Hosp Course -Sepsis and acute on chronic renal failure: It seems the patient had renal function worsened and requiring emergent dialysis. S/P emergent right common femoral vein Alfredo catheter placement. Seems to be recovering -Right upper extremity superficial thrombophlebitis: It seems that the patient has developed the thrombosis of his cephalic vein in the upper arm. No further vascular interventions are needed. Would recommend for the patient in to the have warm compresses or NSAIDs for comfort and will continue to monitor. -Optimize vascular status (BP meds, diet, nutrition, exercise, sugar control, antiplatelets). -Discussed findings, plan, and management with the patient and the family at the bedside and they understand. -Thank you for allowing us to partake in the care of your patient. Please call with any questions. Problems: Subjective 24 Hr Interval Summary no new vascular events overnight Exam/Review of Systems Vital Signs Vitals Vital Signs Date Time Temp Pulse Resp B/P Pulse Ox O2 Delivery O2 Flow Rate FiO2 01/01/17 08:39 73 01/01/17 07:38 97.5 20 149/87 98 01/01/17 01:26 21 12/31/16 20:00 Nasal Cannula 2.0 Intake and Output 12/31/16 12/31/16 01/01/17 15:00 23:00 07:00 Intake Total 800 ml Output Total 500 ml 700 ml Balance 300 ml -700 ml Exam Free Text/Dictation GENERAL: He is alert and oriented x3, PULMONARY: Coarse breath sounds bilaterally CARDIOVASCULAR: S1, S2 present. ABDOMEN: Soft, nontender, nondistended. Bowel sounds positive. EXTREMITIES: Right lower extremity: Palpable femoral pulse, nonpalpable pedal pulse. Motor , sensory intact. Cap refill 2 to 3 seconds. No ulcers identified. Left lower extremity: Palpable femoral pulse, nonpalpable pedal pulse. Motor and sensory intact. Capillary refill 2 to 3 seconds. No ulcers identified. Right upper extremity: Palpable brachial pulse. Motor and sensory intact. Cap refill 2 to 3 seconds. Multiple areas of ecchymosis from previous blood draws. Results Result Diagram: 01/01/17 0732 01/01/17 0732 LORENZO CHAO MD Jan 01, 2017 11:15
--- NOTE | 2017-01-01 13:24 | PN ---
Date/Time of Note Date/Time of Note DATE: 01/01/17 TIME: 13:22 Assessment/Plan VTE Prophylaxis VTE Prophylaxis Intervention: ambulation Lines/Catheters IV Catheter Type (from Nrs): Peripheral IV Urinary Cath still in place: No Assessment/Plan Assessment/Plan Pt is hematologically stable. Continue Jakafi. After discharge, he will f/u with Dr. Rossi. No new suggestions now. Subjective 24 Hr Interval Summary Free Text/Dictation Pt is sitting comfortably in a chair. Exam/Review of Systems Vital Signs Vitals Vital Signs Date Time Temp Pulse Resp B/P Pulse Ox O2 Delivery O2 Flow Rate FiO2 01/01/17 12:27 71 01/01/17 12:10 97.5 20 121/58 95 01/01/17 01:26 21 12/31/16 20:00 Nasal Cannula 2.0 Intake and Output 12/31/16 12/31/16 01/01/17 15:00 23:00 07:00 Intake Total 800 ml Output Total 500 ml 700 ml Balance 300 ml -700 ml Exam Constitutional: alert Psych: no complaints Head: normocephalic ENMT: nl external ears & nose Neck: supple Respiratory: clear to auscultation Cardiovascular: regular rate and rhythm Results Result Diagram: 01/01/17 0732 01/01/17 0732 Results 24 hrs Laboratory Tests Test 12/31/16 17:10 12/31/16 19:34 01/01/17 02:16 01/01/17 06:40 Bedside Glucose 212 243 H 245 H 289 H Test 01/01/17 07:32 01/01/17 07:56 01/01/17 12:11 White Blood Count 10.5 Red Blood Count 3.69 L Hemoglobin 10.6 L Hematocrit 33.8 L Mean Corpuscular Volume 91.6 Mean Corpuscular Hemoglobin 28.7 L Mean Corpuscular Hemoglobin Concent 31.4 L Red Cell Distribution Width 18.0 H Platelet Count 216 # Mean Platelet Volume 12.6 H Neutrophils % 73.1 Lymphocytes % 11.2 L Monocytes % 6.2 Eosinophils % 2.3 Basophils % 0.4 Nucleated Red Blood Cells % 0.0 Neutrophils # 7.7 H Lymphocytes # 1.2 Monocytes # 0.7 Eosinophils # 0.2 Basophils # 0.0 Nucleated Red Blood Cells # 0.0 Large Platelets FEW Sodium Level 135 Potassium Level 4.0 Chloride Level 104 Carbon Dioxide Level 22 Anion Gap 13 Blood Urea Nitrogen 49 H Creatinine 2.43 H Glucose Level 295 H Calcium Level 7.6 L Phosphorus Level 3.5 Magnesium Level 1.8 Total Bilirubin 0.3 Direct Bilirubin 0.00 Indirect Bilirubin 0.3 Aspartate Amino Transf (AST/SGOT) 42 Alanine Aminotransferase (ALT/SGPT) 56 Alkaline Phosphatase 116 Total Protein 6.5 Albumin 3.6 Globulin 2.90 Albumin/Globulin Ratio 1.24 Bedside Glucose 299 H 178 Medications Medications Current Medications Ondansetron HCl (Zofran Inj) 4 mg Q6H PRN IV NAUSEA AND/OR VOMITING; Start at 16:00 Bisacodyl (Dulcolax Supp) 10 mg DAILY PRN [place] CONSTIPATION; Start 12/16/16 at 16 :00 Heparin Sodium (Porcine) (Heparin (5000 Units/0.5 ml)) 5,000 unit Q12 SC Last administered on 01/01/17 08:34; Admin Dose 5,000 UNIT; Start 12/16/16 at 21:00 Miscellaneous Information 1 ea NOTE XX ; Start 12/16/16 at 18:00 Glucose (Glutose) 15 gm Q15M PRN PO DECREASED GLUCOSE; Start 12/16/16 at 18:00 Glucose (Glutose) 22.5 gm Q15M PRN PO DECREASED GLUCOSE; Start 12/16/16 at 18: 00 Dextrose (D50w Syringe) 25 ml Q15M PRN IV DECREASED GLUCOSE; Start 12/16/16 at 18:00 Dextrose (D50w Syringe) 50 ml Q15M PRN IV DECREASED GLUCOSE; Start 12/16/16 at 18:00 Glucagon (Glucagen) 1 mg Q15M PRN IM DECREASED GLUCOSE; Start 12/16/16 at 18:00 Glucose (Glutose) 15 gm Q15M PRN BUCCAL DECREASED GLUCOSE; Start 12/16/16 at 18 :00 Morphine Sulfate (morphine) 1 mg Q4H PRN IV PAIN LEVEL 1-5 Last administered on 01/01/17 02:11; Admin Dose 1 MG; Start 12/20/16 at 11:30 Nitroglycerin (Nitroglycerin (Sl Tab) 0.4 Mg) 1 tab Q5M PRN SL ANGINA Last administered on 12/21/16 01:06; Admin Dose 1 TAB; Start 12/21/16 at 00:30 Clopidogrel Bisulfate (plaVIX) 75 mg DAILY PO Last administered on 01/01/17 08 :31; Admin Dose 75 MG; Start 12/22/16 at 09:00 Ondansetron HCl (Zofran Inj) 4 mg Q4H PRN IV NAUSEA AND/OR VOMITING; Start at 12:00 Zolpidem Tartrate (Ambien) 5 mg HS PRN PO INSOMNIA Last administered on 20:32; Admin Dose 5 MG; Start 12/22/16 at 22:00 Atorvastatin Calcium (Lipitor) 40 mg HS PO Last administered on 12/31/16 20:20 ; Admin Dose 40 MG; Start 12/23/16 at 21:00 Hydralazine HCl (Apresoline) 10 mg Q6H PRN IV ELEVATED BLOOD PRESSURE; Start at 08:00 Aspirin (Halfprin) 81 mg DAILY PO Last administered on 01/01/17 08:28; Admin Dose 81 MG; Start 12/25/16 at 09:00 Multivit/Ca Carb/ B Cmplx/FA/Prenat (Nadiya-Ozzie) 1 tab DAILY PO Last administered on 01/01/17 08:30; Admin Dose 1 TAB; Start 12/25/16 at 09:00 Acetaminophen (Tylenol Tab) 650 mg Q6H PRN PO PAIN AND OR ELEVATED TEMP; Start 12/25/16 at 08:30 Docusate Sodium (Colace) 200 mg DAILY PO Last administered on 01/01/17 08:29; Admin Dose 200 MG; Start 12/25/16 at 09:00 Levothyroxine Sodium (Synthroid) 75 mcg DAILY@06 PO Last administered on 06:00; Admin Dose 75 MCG; Start 12/27/16 at 06:00 Pantoprazole (Protonix Tab) 40 mg AM PO Last administered on 01/01/17 08:31; Admin Dose 40 MG; Start 12/26/16 at 09:00 Patient Own Medication 1 ea BID PO Last administered on 01/01/17 08:28; Admin Dose 1 EA; Start 12/27/16 at 13:00 Alprazolam (Xanax) 0.25 mg BID PO Last administered on 12/31/16 20:23; Admin Dose 0.25 MG; Start 12/27/16 at 12:30 Diagnostic Test (Pha) (Accu-Chek) 1 ea 02 XX Last administered on 01/01/17 02: 00; Admin Dose 1 EA; Start 12/28/16 at 02:00 Amiodarone HCl (Cordarone) 200 mg QAM PO Last administered on 01/01/17 08:30; Admin Dose 200 MG; Start 12/30/16 at 09:00 Isosorbide Dinitrate (Isordil) 10 mg TID PO Last administered on 01/01/17 08: 31; Admin Dose 10 MG; Start 12/30/16 at 21:00 Insulin Detemir (Levemir) 40 unit DAILY@20 SC ; Start 01/01/17 at 20:00 Metoprolol Succinate (Toprol Xl) 75 mg BID PO ; Start 01/01/17 at 21:00 Hydralazine HCl (Apresoline) 25 mg TID PO ; Start 01/01/17 at 13:00 JULIANNE RIOS MD Jan 01, 2017 13:24
[2017-01-01] MEDS: ATORVASTATIN 40 MG TAB PO SCH (20:51)
[2017-01-01] MEDS: INSULIN DETEMIR [LEVEMIR] 3ML CART SC SCH (21:00)
[2017-01-02] VITALS (11 sets, daily range): BP systolic 97–157; BP diastolic 49–76; PULSE 63–74; RESP 17–69
[2017-01-02] MEDS: ACCU-CHEK XX SCH (02:00)
[2017-01-02] MEDS: LEVOTHYROXINE 75 MCG TAB PO SCH (05:29)
[2017-01-02 06:35] LABS: ADD SCAN DIFF NO
[2017-01-02 06:39] LABS: ABNORMAL IP MESSAGE 1; HEMATOCRIT 33.4 % (42.0-52.0); HEMOGLOBIN 10.4 g/dl (14.0-18.0); MEAN CORPUSCULAR HEMOGLOBIN 28.7 pg (29.0-33.0); MEAN CORPUSCULAR HGB CONC 31.1 g/dl (32.0-37.0); MEAN CORPUSCULAR VOLUME 92.3 fl (82.0-101.0); MEAN PLATELET VOLUME 11.6 fl (7.4-10.4); PLATELET COUNT 211 10^3/UL (140-415); RED BLOOD COUNT 3.62 10^6/ul (4.70-6.10); RED CELL DISTRIBUTION WIDTH 17.8 % (11.5-14.5); WHITE BLOOD COUNT 10.3 10^3/ul (4.8-10.8)
[2017-01-02 06:49] LABS: CREATININE 2.48 mg/dl (0.61-1.24); POTASSIUM 4.7 mmol/L (3.5-5.1)
[2017-01-02] MEDS: INSULIN ASPART [NOVOLOG] 3 ML PEN SC SCH ×3 (07:25→18:12)
--- NOTE | 2017-01-02 08:52 | PN ---
Date/Time of Note Date/Time of Note DATE: 01/02/17 TIME: 08:48 Assessment/Plan VTE Prophylaxis VTE Prophylaxis Intervention: other Lines/Catheters IV Catheter Type (from Nrs): Peripheral IV Urinary Cath still in place: No Assessment/Plan Assessment/Plan 1. Acute renal failure resolved, with known CKD 2. ASHD, post mi and ventric arrythmia, no evid chf now, add ARB 1-2 d, place defibrillator per cardiology 3. Myeloprolif disorder anb related anemia, stable 4. Sugar control has improved with inc lantus and ac regular insulin. Subjective 24 Hr Interval Summary Respiratory: No cough, No shortness of breath Cardiovascular: No edema, No orthopenea Gastrointestinal: no complaints Genitourinary: no complaints Musculoskeletal: no complaints Exam/Review of Systems Vital Signs Vitals Vital Signs Date Time Temp Pulse Resp B/P Pulse Ox O2 Delivery O2 Flow Rate FiO2 01/02/17 08:28 63 01/02/17 08:04 97.5 17 145/68 94 01/01/17 20:00 Nasal Cannula 2.0 01/01/17 01:26 21 Intake and Output 01/01/17 01/01/17 01/02/17 15:00 23:00 07:00 Intake Total 1000 ml 200 ml Output Total 550 ml 400 ml Balance 450 ml -200 ml Exam Neck: bruits, jvd (is present at 30 degrees), masses, nuchal rigidity, other, supple, thyromegaly Respiratory: clear to auscultation Cardiovascular: regular rate and rhythm Gastrointestinal: soft Extremities: No edema (and no calf tend) Results Result Diagram: 01/02/1760401/02/17 0605 Results 24 hrs Laboratory Tests Test 01/01/17 12:11 01/01/17 17:29 01/01/17 20:00 01/02/17 02:09 Bedside Glucose 178 158 230 H 228 H Test 01/02/17 06:05 01/02/17 08:08 White Blood Count 10.3 Red Blood Count 3.62 L Hemoglobin 10.4 L Hematocrit 33.4 L Mean Corpuscular Volume 92.3 Mean Corpuscular Hemoglobin 28.7 L Mean Corpuscular Hemoglobin Concent 31.1 L Red Cell Distribution Width 17.8 H Platelet Count 211 Mean Platelet Volume 11.6 H Sodium Level 135 Potassium Level 4.7 Chloride Level 105 Carbon Dioxide Level 24 Anion Gap 11 Blood Urea Nitrogen 53 H Creatinine 2.48 H Glucose Level 152 # Calcium Level 8.0 L Bedside Glucose 133 Medications Medications Current Medications Ondansetron HCl (Zofran Inj) 4 mg Q6H PRN IV NAUSEA AND/OR VOMITING; Start at 16:00 Bisacodyl (Dulcolax Supp) 10 mg DAILY PRN [place] CONSTIPATION; Start 12/16/16 at 16 :00 Heparin Sodium (Porcine) (Heparin (5000 Units/0.5 ml)) 5,000 unit Q12 SC Last administered on 01/01/17 20:57; Admin Dose 5,000 UNIT; Start 12/16/16 at 21:00 Miscellaneous Information 1 ea NOTE XX ; Start 12/16/16 at 18:00 Glucose (Glutose) 15 gm Q15M PRN PO DECREASED GLUCOSE; Start 12/16/16 at 18:00 Glucose (Glutose) 22.5 gm Q15M PRN PO DECREASED GLUCOSE; Start 12/16/16 at 18: 00 Dextrose (D50w Syringe) 25 ml Q15M PRN IV DECREASED GLUCOSE; Start 12/16/16 at 18:00 Dextrose (D50w Syringe) 50 ml Q15M PRN IV DECREASED GLUCOSE; Start 12/16/16 at 18:00 Glucagon (Glucagen) 1 mg Q15M PRN IM DECREASED GLUCOSE; Start 12/16/16 at 18:00 Glucose (Glutose) 15 gm Q15M PRN BUCCAL DECREASED GLUCOSE; Start 12/16/16 at 18 :00 Morphine Sulfate (morphine) 1 mg Q4H PRN IV PAIN LEVEL 1-5 Last administered on 01/01/17 02:11; Admin Dose 1 MG; Start 12/20/16 at 11:30 Nitroglycerin (Nitroglycerin (Sl Tab) 0.4 Mg) 1 tab Q5M PRN SL ANGINA Last administered on 12/21/16 01:06; Admin Dose 1 TAB; Start 12/21/16 at 00:30 Clopidogrel Bisulfate (plaVIX) 75 mg DAILY PO Last administered on 01/01/17 08 :31; Admin Dose 75 MG; Start 12/22/16 at 09:00 Ondansetron HCl (Zofran Inj) 4 mg Q4H PRN IV NAUSEA AND/OR VOMITING; Start at 12:00 Zolpidem Tartrate (Ambien) 5 mg HS PRN PO INSOMNIA Last administered on 20:32; Admin Dose 5 MG; Start 12/22/16 at 22:00 Atorvastatin Calcium (Lipitor) 40 mg HS PO Last administered on 01/01/17 20:51 ; Admin Dose 40 MG; Start 12/23/16 at 21:00 Hydralazine HCl (Apresoline) 10 mg Q6H PRN IV ELEVATED BLOOD PRESSURE; Start at 08:00 Aspirin (Halfprin) 81 mg DAILY PO Last administered on 01/01/17 08:28; Admin Dose 81 MG; Start 12/25/16 at 09:00 Multivit/Ca Carb/ B Cmplx/FA/Prenat (Nadiya-Ozzie) 1 tab DAILY PO Last administered on 01/01/17 08:30; Admin Dose 1 TAB; Start 12/25/16 at 09:00 Acetaminophen (Tylenol Tab) 650 mg Q6H PRN PO PAIN AND OR ELEVATED TEMP; Start 12/25/16 at 08:30 Docusate Sodium (Colace) 200 mg DAILY PO Last administered on 01/01/17 08:29; Admin Dose 200 MG; Start 12/25/16 at 09:00 Levothyroxine Sodium (Synthroid) 75 mcg DAILY@06 PO Last administered on 05:29; Admin Dose 75 MCG; Start 12/27/16 at 06:00 Pantoprazole (Protonix Tab) 40 mg AM PO Last administered on 01/01/17 08:31; Admin Dose 40 MG; Start 12/26/16 at 09:00 Patient Own Medication 1 ea BID PO Last administered on 01/01/17 21:04; Admin Dose 1 EA; Start 12/27/16 at 13:00 Alprazolam (Xanax) 0.25 mg BID PO Last administered on 12/31/16 20:23; Admin Dose 0.25 MG; Start 12/27/16 at 12:30 Diagnostic Test (Pha) (Accu-Chek) 1 ea 02 XX Last administered on 01/01/17 02: 00; Admin Dose 1 EA; Start 12/28/16 at 02:00 Amiodarone HCl (Cordarone) 200 mg QAM PO Last administered on 01/01/17 08:30; Admin Dose 200 MG; Start 12/30/16 at 09:00 Isosorbide Dinitrate (Isordil) 10 mg TID PO Last administered on 01/01/17 20: 52; Admin Dose 10 MG; Start 12/30/16 at 21:00 Insulin Detemir (Levemir) 40 unit DAILY@20 SC Last administered on 01/01/17 21 :00; Admin Dose 40 UNIT; Start 01/01/17 at 20:00 Metoprolol Succinate (Toprol Xl) 75 mg BID PO Last administered on 01/01/17 20 :53; Admin Dose 75 MG; Start 01/01/17 at 21:00 Hydralazine HCl (Apresoline) 25 mg TID PO Last administered on 01/01/17 20:52 ; Admin Dose 25 MG; Start 01/01/17 at 13:00 JULIANNE ESTRELLA MD Jan 02, 2017 08:52
[2017-01-02] MEDS: ALPRAZOLAM 0.25 MG TAB PO SCH ×2 (09:00→20:37)
[2017-01-02] MEDS: RUXOLITINIB 5 MG PO SCH ×2 (09:16→20:34)
[2017-01-02] MEDS: AMIODARONE 200 MG TAB PO SCH (09:17)
[2017-01-02] MEDS: CLOPIDOGREL 75 MG TAB PO SCH (09:17)
[2017-01-02] MEDS: ASPIRIN (EC) 81 MG TAB PO SCH (09:17)
[2017-01-02] MEDS: DOCUSATE SODIUM 100 MG CAP PO SCH (09:18)
[2017-01-02] MEDS: MULTIVIT/CA CARB/B CMPLX/FA TAB PO SCH (09:18)
[2017-01-02] MEDS: METOPROLOL (XL) 50 MG TAB PO SCH ×2 (09:19→20:32)
[2017-01-02] MEDS: PANTOPRAZOLE (EC) 40 MG TAB PO SCH (09:19)
[2017-01-02] MEDS: ISOSORBIDE DINITRATE 5 MG TAB PO SCH ×3 (09:20→20:33)
[2017-01-02] MEDS: HEPARIN 5,000 UNIT/0.5 ML VIAL SC SCH ×2 (09:41→20:54)
[2017-01-02 10:06] LABS: EOSINOPHILS # 0.1 10^3/ul (0.0-0.5); LYMPHOCYTES # 1.8 10^3/ul (0.8-2.9); MONOCYTE # 0.1 10^3/ul (0.3-0.9); MYELOCYTES # 0.2; NEUTROPHIL # 7.4 10^3/ul (1.6-7.5); OVALOCYTES FEW; POLYCHROMASIA RARE
--- NOTE | 2017-01-02 10:12 | PN ---
DATE: 01/02/2017 HEMATOLOGY PROGRESS NOTE SUBJECTIVE: Mr. Watson is feeling well. He has not complained of shortness breath or cough. He bhatia s had no chest pain. The patient has continued to take his usual dose of Jakafi without any complaints. OBJECTIVE: VITAL SIGNS: Temperature 97.5, pulse 64 per minute and regular, respirations 17, blood pressure 145 /68, and pulse oximetry 94% on 2 liters of oxygen. SKIN: Somewhat sallow complexion with scattered purpura and ecchymoses. HEENT: No mucosal lesions. No scleral icterus. Oral mucosa is moist. There is no gingival hyperp lasia, no hypertrophy of Waldeyer's ring, no mucosal telangiectasias. NECK: Supple, no jugular venous distention or thyroid enlargement. CHEST: Clear to auscultation and percussion. No rhonchi, wheezes, rales or rubs. There is a matias otomy scar present which is well healed. NODES: No palpable lymphadenopathy in the lymph node bearing area. ABDOMEN: Soft. No masses, no ascites. EXTREMITIES: Good range of motion, no clubbing, edema or cyanosis. No palpable cords or Homans sig n. NEUROLOGIC: Normal. LABORATORY DATA: White count is 10,300, hemoglobin 10.4, hematocrit 33.4, and platelet count 211,00 0. Sodium 135, potassium 4.7, BUN 53, creatinine 2.48, calcium is 8. ASSESSMENT: 1. Myelofibrosis. 2. Coronary artery disease, status post myocardial infarction and ventricular fibrillation. 3. Small-bowel obstruction, resolved. 4. Renal failure. PLAN: The patient will continue on Jakafi 5 mg twice a day. The patient's renal status appears to be stable and dialysis is being held. The patient is likely to have placement of implantable defibrillator. Apparently this is to be done during this admission. The patient can continue on the Jakafi during this procedure. Dictated By: DARNELL AMARAL MD, SR/ROSANGELA Conf#: [id number] DID#: [id number]
--- NOTE | 2017-01-02 11:09 | CONS ---
Date/Time of Note Date/Time of Note DATE: 01/02/17 TIME: 11:05 Assessment/Plan Assessment/Plan Chief Complaint/Hosp Course Impression: - hypovolemic shock- resolved - NSTEMI- improved, no further ischemia - A/CKD- likely from shock + possible contrast nephropathy. s/p dialysis, now with imrpoved urine outpt. and stable bun/cr. no iHD since weekend, cr stable. - Acute on chronic systolic heart failure- 2/2 nstemi, fluid resuscitation. will keep even with prn diuretic - Multi vessel coronary artery disease - mid [id number] severe stenosis, likely related to compression from surgical clips. no further interventions at this time - SBO now resolved - Respiratory failure- extubated, but with cont congestion requiring o2 - VT/VF event - on amiodarone, no recurrence Recommendations: - cont asa 81mg daily and plavix 75 mg daily given NSTEMI - prn diuretic - Maintain K>4, Mg>2 - Continue on amiodarone PO given VT/VF - cont metoprolol xl to 75 mg po bid - cont to titrate isosorbide/hydralazine - unable to tolerate acei/arb or spironolactone at this time - plan to remove R groin iHD line if not needed - pt seen by EP will need ICD placement for secondary prevention, given off iHD plan for ICD placement depending on clinical course. Problems: Consultation Date/Type/Reason Admit Date/Time Dec 16, 2016 at 17:40 Type of Consultation: cardiology Referring Provider: JULIANNE ESTRELLA MD 24 HR Interval Summary Free Text/Dictation no acute events. pt denies cp/sob. no palpitations. no iHD yesterday, good uop he states tele reviewed: NSR no events Detailed Summary Respiratory: no complaints Cardiovascular: no complaints Gastrointestinal: no complaints Genitourinary: no complaints Exam/Review of Systems Vital Signs Vitals Vital Signs Date Time Temp Pulse Resp B/P Pulse Ox O2 Delivery O2 Flow Rate FiO2 01/02/17 08:28 63 01/02/17 08:04 97.5 17 145/68 94 01/01/17 20:00 Nasal Cannula 2.0 01/01/17 01:26 21 Intake and Output 01/01/17 01/01/17 01/02/17 15:00 23:00 07:00 Intake Total 1000 ml 200 ml Output Total 550 ml 400 ml Balance 450 ml -200 ml Exam Constitutional: alert, oriented Psych: no complaints Head: normocephalic Eyes: EOMI, nl conjunctiva, nl lids ENMT: mucosa pink and moist, nl external ears & nose, nl nasal mucosa & septum Neck: non-tender, supple, No jvd Respiratory: crackles/rales, diminished breath sounds Cardiovascular: other (RRRnl s1s2, ii/vi systolic LLSB), No diastolic murmur, No edema, No gallop, No irregular rhythm Gastrointestinal: nl liver, spleen, non-tender, soft Musculoskeletal: nl extremities to inspection, nl gait and stance Extremities: normal pulses R groin dialysis line in place 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: INCLUSION SPECIALIST II-XII intact, nl mental status, nl speech, nl strength Results Result Diagram: 01/02/1760401/02/17604 Results 24 hrs Laboratory Tests Test 01/01/17 12:11 01/01/17 17:29 01/01/17 20:00 01/02/17 02:09 Bedside Glucose 178 158 230 H 228 H Test 01/02/17 06:05 01/02/17 08:08 White Blood Count 10.3 Red Blood Count 3.62 L Hemoglobin 10.4 L Hematocrit 33.4 L Mean Corpuscular Volume 92.3 Mean Corpuscular Hemoglobin 28.7 L Mean Corpuscular Hemoglobin Concent 31.1 L Red Cell Distribution Width 17.8 H Platelet Count 211 Mean Platelet Volume 11.6 H Neutrophils % 72.0 Band Neutrophils % 3.0 Lymphocytes % 17.0 Monocytes % 1.0 Eosinophils % 1.0 Metamyelocytes % 4.0 H Myelocytes % 2.0 H Neutrophils # 7.4 Lymphocytes # 1.8 Monocytes # 0.1 L Eosinophils # 0.1 Metamyelocytes # 0.4 Myelocytes # 0.2 Large Platelets FEW Polychromasia RARE Ovalocytes FEW Sodium Level 135 Potassium Level 4.7 Chloride Level 105 Carbon Dioxide Level 24 Anion Gap 11 Blood Urea Nitrogen 53 H Creatinine 2.48 H Glucose Level 152 # Calcium Level 8.0 L Bedside Glucose 133 Medications Medications Current Medications Ondansetron HCl (Zofran Inj) 4 mg Q6H PRN IV NAUSEA AND/OR VOMITING; Start at 16:00 Bisacodyl (Dulcolax Supp) 10 mg DAILY PRN [place] CONSTIPATION; Start 12/16/16 at 16 :00 Heparin Sodium (Porcine) (Heparin (5000 Units/0.5 ml)) 5,000 unit Q12 SC Last administered on 01/02/17 09:41; Admin Dose 5,000 UNIT; Start 12/16/16 at 21:00 Miscellaneous Information 1 ea NOTE XX ; Start 12/16/16 at 18:00 Glucose (Glutose) 15 gm Q15M PRN PO DECREASED GLUCOSE; Start 12/16/16 at 18:00 Glucose (Glutose) 22.5 gm Q15M PRN PO DECREASED GLUCOSE; Start 12/16/16 at 18: 00 Dextrose (D50w Syringe) 25 ml Q15M PRN IV DECREASED GLUCOSE; Start 12/16/16 at 18:00 Dextrose (D50w Syringe) 50 ml Q15M PRN IV DECREASED GLUCOSE; Start 12/16/16 at 18:00 Glucagon (Glucagen) 1 mg Q15M PRN IM DECREASED GLUCOSE; Start 12/16/16 at 18:00 Glucose (Glutose) 15 gm Q15M PRN BUCCAL DECREASED GLUCOSE; Start 12/16/16 at 18 :00 Morphine Sulfate (morphine) 1 mg Q4H PRN IV PAIN LEVEL 1-5 Last administered on 01/01/17 02:11; Admin Dose 1 MG; Start 12/20/16 at 11:30 Nitroglycerin (Nitroglycerin (Sl Tab) 0.4 Mg) 1 tab Q5M PRN SL ANGINA Last administered on 12/21/16 01:06; Admin Dose 1 TAB; Start 12/21/16 at 00:30 Clopidogrel Bisulfate (plaVIX) 75 mg DAILY PO Last administered on 01/02/17 09 :17; Admin Dose 75 MG; Start 12/22/16 at 09:00 Ondansetron HCl (Zofran Inj) 4 mg Q4H PRN IV NAUSEA AND/OR VOMITING; Start at 12:00 Zolpidem Tartrate (Ambien) 5 mg HS PRN PO INSOMNIA Last administered on 20:32; Admin Dose 5 MG; Start 12/22/16 at 22:00 Atorvastatin Calcium (Lipitor) 40 mg HS PO Last administered on 01/01/17 20:51 ; Admin Dose 40 MG; Start 12/23/16 at 21:00 Hydralazine HCl (Apresoline) 10 mg Q6H PRN IV ELEVATED BLOOD PRESSURE; Start at 08:00 Aspirin (Halfprin) 81 mg DAILY PO Last administered on 01/02/17 09:17; Admin Dose 81 MG; Start 12/25/16 at 09:00 Multivit/Ca Carb/ B Cmplx/FA/Prenat (Nadiya-Ozzie) 1 tab DAILY PO Last administered on 01/02/17 09:18; Admin Dose 1 TAB; Start 12/25/16 at 09:00 Acetaminophen (Tylenol Tab) 650 mg Q6H PRN PO PAIN AND OR ELEVATED TEMP; Start 12/25/16 at 08:30 Docusate Sodium (Colace) 200 mg DAILY PO Last administered on 01/02/17 09:18; Admin Dose 200 MG; Start 12/25/16 at 09:00 Levothyroxine Sodium (Synthroid) 75 mcg DAILY@06 PO Last administered on 05:29; Admin Dose 75 MCG; Start 12/27/16 at 06:00 Pantoprazole (Protonix Tab) 40 mg AM PO Last administered on 01/02/17 09:19; Admin Dose 40 MG; Start 12/26/16 at 09:00 Patient Own Medication 1 ea BID PO Last administered on 01/02/17 09:16; Admin Dose 1 EA; Start 12/27/16 at 13:00 Alprazolam (Xanax) 0.25 mg BID PO Last administered on 12/31/16 20:23; Admin Dose 0.25 MG; Start 12/27/16 at 12:30 Diagnostic Test (Pha) (Accu-Chek) 1 ea 02 XX Last administered on 01/01/17 02: 00; Admin Dose 1 EA; Start 12/28/16 at 02:00 Amiodarone HCl (Cordarone) 200 mg QAM PO Last administered on 01/02/17 09:17; Admin Dose 200 MG; Start 12/30/16 at 09:00 Isosorbide Dinitrate (Isordil) 10 mg TID PO Last administered on 01/02/17 09: 20; Admin Dose 10 MG; Start 12/30/16 at 21:00 Insulin Detemir (Levemir) 40 unit DAILY@20 SC Last administered on 01/01/17 21 :00; Admin Dose 40 UNIT; Start 01/01/17 at 20:00 Metoprolol Succinate (Toprol Xl) 75 mg BID PO Last administered on 01/02/17 09 :19; Admin Dose 75 MG; Start 01/01/17 at 21:00 Hydralazine HCl 25 mg 25 mg TID PO Last administered on 01/02/17 09:17; Admin Dose 25 MG; Start 01/01/17 at 13:00 Magnesium Sulfate (Magnesium Sulfate 2 Gm/50 ml) 50 ml @ 25 mls/hr ONCE ONCE IVPB ; Start 01/02/17 at 09:00; Stop 01/02/17 at 10:59; Status UNV Procedures Procedures cxr reports reviewed in emr SAMY ROSALES Jan 02, 2017 11:09
[2017-01-02] MEDS ORDERED: MAGNESIUM SULFATE 2 GM/50 ML 50 ML IVPB ONE (13:00)
[2017-01-02] MEDS: ATORVASTATIN 40 MG TAB PO SCH (20:33)
[2017-01-02] MEDS: INSULIN DETEMIR [LEVEMIR] 3ML CART SC SCH (20:50)
[2017-01-03] VITALS (27 sets, daily range): BP systolic 119–154; BP diastolic 64–81; PULSE 60–66; RESP 13–22
[2017-01-03] MEDS: ACCU-CHEK XX SCH (02:00)
[2017-01-03] MEDS: LEVOTHYROXINE 75 MCG TAB PO SCH (06:30)
[2017-01-03 07:23] LABS: ADD SCAN DIFF NO
[2017-01-03] MEDS: INSULIN ASPART [NOVOLOG] 3 ML PEN SC SCH ×3 (07:25→17:25)
[2017-01-03 07:27] LABS: ABNORMAL IP MESSAGE 1; HEMATOCRIT 39.1 % (42.0-52.0); HEMOGLOBIN 11.6 g/dl (14.0-18.0); MEAN CORPUSCULAR HEMOGLOBIN 28.4 pg (29.0-33.0); MEAN CORPUSCULAR HGB CONC 29.7 g/dl (32.0-37.0); MEAN CORPUSCULAR VOLUME 95.6 fl (82.0-101.0); MEAN PLATELET VOLUME 12.4 fl (7.4-10.4); PLATELET COUNT 240 10^3/UL (140-415); RED BLOOD COUNT 4.09 10^6/ul (4.70-6.10); RED CELL DISTRIBUTION WIDTH 18.2 % (11.5-14.5); WHITE BLOOD COUNT 14.1 10^3/ul (4.8-10.8)
[2017-01-03 07:40] LABS: POTASSIUM 4.2 mmol/L (3.5-5.1)
[2017-01-03 07:42] LABS: CREATININE 2.57 mg/dl (0.61-1.24)
[2017-01-03] MEDS: HEPARIN 5,000 UNIT/0.5 ML VIAL SC SCH ×3 (07:42→23:06)
[2017-01-03 07:43] LABS: CALCIUM 8.7 mg/dl (8.4-10.2)
[2017-01-03] MEDS: DOCUSATE SODIUM 100 MG CAP PO SCH (09:00)
[2017-01-03] MEDS: RUXOLITINIB 5 MG PO SCH ×2 (09:34→22:55)
[2017-01-03] MEDS: AMIODARONE 200 MG TAB PO SCH (09:36)
[2017-01-03] MEDS: ASPIRIN (EC) 81 MG TAB PO SCH (09:36)
[2017-01-03] MEDS: CLOPIDOGREL 75 MG TAB PO SCH (09:36)
[2017-01-03] MEDS: PANTOPRAZOLE (EC) 40 MG TAB PO SCH (09:36)
[2017-01-03] MEDS: MULTIVIT/CA CARB/B CMPLX/FA TAB PO SCH (09:36)
[2017-01-03] MEDS: METOPROLOL (XL) 50 MG TAB PO SCH ×2 (09:36→22:59)
[2017-01-03] MEDS: ISOSORBIDE DINITRATE 5 MG TAB PO SCH ×3 (09:37→23:00)
[2017-01-03] MEDS: ALPRAZOLAM 0.25 MG TAB PO SCH ×2 (09:37→23:08)
[2017-01-03 10:31] LABS: EOSINOPHILS # 0.1 10^3/ul (0.0-0.5); LYMPHOCYTES # 1.3 10^3/ul (0.8-2.9); MONOCYTE # 0.4 10^3/ul (0.3-0.9); MYELOCYTES # 0.1; NEUTROPHIL # 11.7 10^3/ul (1.6-7.5)
[2017-01-03] MEDS ORDERED: CEFAZOLIN 1 GM/50 ML (PMX) 50 ML IVPB SCH (12:00)
[2017-01-03] MEDS ORDERED: DEXTROSE 5%-0.45% NACL 1,000 ML IV SCH (12:00)
--- NOTE | 2017-01-03 12:26 | PN ---
Date/Time of Note Date/Time of Note DATE: 01/03/17 TIME: 12:23 Assessment/Plan VTE Prophylaxis VTE Prophylaxis Intervention: other Lines/Catheters IV Catheter Type (from Nrs): Peripheral IV Urinary Cath still in place: No Assessment/Plan Assessment/Plan 1. Acute renal resolved, CKD, stable 2. For defibrillator today 3. Post MD, few rales noted on exam, will start lasix and K tomm if exam unchanged, otherwise stable 4. SBO resolved. 5. CHO control improved. 6. Mag low nl, will supplement Subjective 24 Hr Interval Summary Respiratory: No shortness of breath Cardiovascular: No chest pain, No orthopenea Gastrointestinal: no complaints Genitourinary: no complaints Exam/Review of Systems Vital Signs Vitals Vital Signs Date Time Temp Pulse Resp B/P Pulse Ox O2 Delivery O2 Flow Rate FiO2 01/03/17 12:17 60 01/03/17 07:46 98.5 19 150/75 99 01/02/17 20:00 Nasal Cannula 2.0 01/01/17 01:26 21 Intake and Output 01/02/17 01/02/17 01/03/17 15:00 23:00 07:00 Intake Total 950 ml 500 ml Output Total 1100 ml 1300 ml Balance -150 ml -800 ml Exam Neck: No jvd Respiratory: other (few dry rales right base) Cardiovascular: regular rate and rhythm, No S3, No S4 Gastrointestinal: soft Extremities: No edema Results Result Diagram: 01/03/17 0637 01/03/17 0637 Results 24 hrs Laboratory Tests Test 01/02/17 18:04 01/02/17 20:29 01/03/17 06:37 01/03/17 07:57 Bedside Glucose 201 192 129 White Blood Count 14.1 #H Red Blood Count 4.09 L Hemoglobin 11.6 L Hematocrit 39.1 L Mean Corpuscular Volume 95.6 Mean Corpuscular Hemoglobin 28.4 L Mean Corpuscular Hemoglobin Concent 29.7 L Red Cell Distribution Width 18.2 H Platelet Count 240 Mean Platelet Volume 12.4 H Neutrophils % 83.0 H Band Neutrophils % 2.0 Lymphocytes % 9.0 L Monocytes % 3.0 Eosinophils % 1.0 Metamyelocytes % 1.0 H Myelocytes % 1.0 H Neutrophils # 11.7 H Lymphocytes # 1.3 Monocytes # 0.4 Eosinophils # 0.1 Metamyelocytes # 0.1 Myelocytes # 0.1 Sodium Level 139 Potassium Level 4.2 Chloride Level 105 Carbon Dioxide Level 22 Anion Gap 16 Blood Urea Nitrogen 51 H Creatinine 2.57 H Glucose Level 141 Calcium Level 8.7 Test 01/03/17 11:44 Bedside Glucose 118 Medications Medications Current Medications Bisacodyl (Dulcolax Supp) 10 mg DAILY PRN [place] CONSTIPATION; Start 12/16/16 at 16 :00 Heparin Sodium (Porcine) (Heparin (5000 Units/0.5 ml)) 5,000 unit Q12 SC Last administered on 01/02/17 20:54; Admin Dose 5,000 UNIT; Start 12/16/16 at 21:00 Miscellaneous Information 1 ea NOTE XX ; Start 12/16/16 at 18:00 Glucose (Glutose) 15 gm Q15M PRN PO DECREASED GLUCOSE; Start 12/16/16 at 18:00 Glucose (Glutose) 22.5 gm Q15M PRN PO DECREASED GLUCOSE; Start 12/16/16 at 18: 00 Dextrose (D50w Syringe) 25 ml Q15M PRN IV DECREASED GLUCOSE; Start 12/16/16 at 18:00 Dextrose (D50w Syringe) 50 ml Q15M PRN IV DECREASED GLUCOSE; Start 12/16/16 at 18:00 Glucagon (Glucagen) 1 mg Q15M PRN IM DECREASED GLUCOSE; Start 12/16/16 at 18:00 Glucose (Glutose) 15 gm Q15M PRN BUCCAL DECREASED GLUCOSE; Start 12/16/16 at 18 :00 Morphine Sulfate (morphine) 1 mg Q4H PRN IV PAIN LEVEL 1-5 Last administered on 01/01/17 02:11; Admin Dose 1 MG; Start 12/20/16 at 11:30 Nitroglycerin (Nitroglycerin (Sl Tab) 0.4 Mg) 1 tab Q5M PRN SL ANGINA Last administered on 12/21/16 01:06; Admin Dose 1 TAB; Start 12/21/16 at 00:30 Clopidogrel Bisulfate (plaVIX) 75 mg DAILY PO Last administered on 01/03/17 09 :36; Admin Dose 75 MG; Start 12/22/16 at 09:00 Ondansetron HCl (Zofran Inj) 4 mg Q4H PRN IV NAUSEA AND/OR VOMITING; Start at 12:00 Zolpidem Tartrate (Ambien) 5 mg HS PRN PO INSOMNIA Last administered on 20:32; Admin Dose 5 MG; Start 12/22/16 at 22:00 Atorvastatin Calcium (Lipitor) 40 mg HS PO Last administered on 01/02/17 20:33 ; Admin Dose 40 MG; Start 12/23/16 at 21:00 Hydralazine HCl (Apresoline) 10 mg Q6H PRN IV ELEVATED BLOOD PRESSURE; Start at 08:00 Aspirin (Halfprin) 81 mg DAILY PO Last administered on 01/03/17 09:36; Admin Dose 81 MG; Start 12/25/16 at 09:00 Multivit/Ca Carb/ B Cmplx/FA/Prenat (Nadiya-Ozzie) 1 tab DAILY PO Last administered on 01/03/17 09:36; Admin Dose 1 TAB; Start 12/25/16 at 09:00 Acetaminophen (Tylenol Tab) 650 mg Q6H PRN PO PAIN AND OR ELEVATED TEMP; Start 12/25/16 at 08:30 Docusate Sodium (Colace) 200 mg DAILY PO Last administered on 01/02/17 09:18; Admin Dose 200 MG; Start 12/25/16 at 09:00 Levothyroxine Sodium (Synthroid) 75 mcg DAILY@06 PO Last administered on 06:30; Admin Dose 75 MCG; Start 12/27/16 at 06:00 Pantoprazole (Protonix Tab) 40 mg AM PO Last administered on 01/03/17 09:36; Admin Dose 40 MG; Start 12/26/16 at 09:00 Patient Own Medication 1 ea BID PO Last administered on 01/03/17 09:34; Admin Dose 1 EA; Start 12/27/16 at 13:00 Alprazolam (Xanax) 0.25 mg BID PO Last administered on 01/03/17 09:37; Admin Dose 0.25 MG; Start 12/27/16 at 12:30 Diagnostic Test (Pha) (Accu-Chek) 1 ea 02 XX Last administered on 01/01/17 02: 00; Admin Dose 1 EA; Start 12/28/16 at 02:00 Amiodarone HCl (Cordarone) 200 mg QAM PO Last administered on 01/03/17 09:36; Admin Dose 200 MG; Start 12/30/16 at 09:00 Isosorbide Dinitrate (Isordil) 10 mg TID PO Last administered on 01/03/17 09: 37; Admin Dose 10 MG; Start 12/30/16 at 21:00 Insulin Detemir (Levemir) 40 unit DAILY@20 SC Last administered on 01/02/17 20 :50; Admin Dose 40 UNIT; Start 01/01/17 at 20:00 Metoprolol Succinate (Toprol Xl) 75 mg BID PO Last administered on 01/03/17 09 :36; Admin Dose 75 MG; Start 01/01/17 at 21:00 Hydralazine HCl 25 mg 25 mg TID PO Last administered on 01/03/17 09:36; Admin Dose 25 MG; Start 01/01/17 at 13:00 Dextrose/Sodium Chloride 1,000 ml @ 50 mls/hr Q20H IV Last administered on 11:48; Admin Dose 50 MLS/HR; Start 01/03/17 at 12:00 Cefazolin Sodium 50 ml @ 100 mls/hr ONCE IVPB ; Start 01/03/17 at 12:00; Stop 01/03/17 at 12:29 Dextrose 1,000 ml @ 70 mls/hr [id number] IV ; Start 01/03/17 at 12:30; Status UNV Magnesium Sulfate/ Sodium Chloride (Magnesium Sulfate/NS) 106 ml @ 35.333 mls/ hr ONCE ONCE IVPB ; Start 01/03/17 at 12:30; Stop 01/03/17 at 15:29; Status UNV JULIANNE ESTRELLA MD Jan 03, 2017 12:26
[2017-01-03] MEDS ORDERED: DEXTROSE 5% 1,000 ML IV SCH (12:30)
[2017-01-03] MEDS ORDERED: MAGNESIUM SULFATE 3 GM in SOD CHLORIDE 0.9% 100 ML IVPB ONE (14:00)
--- NOTE | 2017-01-03 14:54 | PN ---
Date/Time of Note Date/Time of Note DATE: 01/03/17 TIME: 14:51 SUBJECTIVE: Patient awake and alert denies any chest pains dyspnea or palpitations, denies any abdominal pain and appetite is good. Patient's is present. Patient awaiting AICD placement by Dr. Yates Chart reviewed, laboratory studies and medications. ROS: Patient denied any fevers, chills, weight loss, nausea, vomiting, diarrhea, constipation, cough, hemoptysis, dysuria, hematuria, nocturia, any neurologic symptoms, headache, any chest pains, dyspnea, PND, orthopnea, leg edema, or palpitations. All other review of systems were normal. OBJECTIVE: Vital signs please see chart. HEENT; no JVD, no HJR, carotids 2 over 4+ without bruits. Chest: Clear to auscultation and percussion, no rales, wheezes or rhonchi. Cardiac: S4, S1, S2 with normal physiologic splitting, 1/6 systolic ejection murmur, no rub click or diastolic murmur noted. Abdominal: Bowel sounds positive, soft nontender, no abdominal bruit noted, no hepatosplenomegaly. Extremities: No cyanosis, clubbing, or edema. Negative Homans sign or palpable cords. Pulses: 2/4 pulses diffusely no bruits noted. LABORATORY STUDIES; White count 14.1, hemoglobin 11.6, hematocrit 39.1, platelets 240,000, BUN 52 creatinine 2.57 normal electrolytes. Telemetry sinus rhythm 60s-80s per monitor check no other ectopy. ASSESSMENT: 1. Ischemic cardiomyopathy ejection fraction 30% post CABG in with [place] right coronary artery stenting recent angiogram patent VALLE graft, vein graft to OM compromised by clips, patent [place] right coronary artery with stents with non-ST elevation MT this admission. 2. Status post VT VF arrest currently on amiodarone and metoprolol. 3. Small bowel obstruction on admission currently resolved. 4. Myelodysplasia being followed by hematology with mild anemia. 5. Acute renal failure, ATN with hypotension worsened by emergent cath-resolved , dialysis discontinued . 6. Hyperlipidemia on statin. Patient stable not in heart failure, no further arrhythmias, renal function improved and stable not requiring dialysis . Patient to receive AICD placement this afternoon by Dr. Yates. Continue amiodarone, hydralazine, Isordil, metoprolol, thyroid, Protonix, aspirin and Plavix and statin therapy. PLAN: 1. AICD placement today by Dr. Yates. 2. Follow labs and x-ray tomorrow. Possible discharge in next 1-2 days post AICD placement ARUNA KRAMER MD Jan 03, 2017 14:54
[2017-01-03] MEDS ORDERED: POLYMYXIN/BACITRACIN 1L IRRIG IRR SCH (15:00)
[2017-01-03] MEDS ORDERED: BUPIVACAINE 0.5% (SDV) 30 ML INJ ONE (16:13)
[2017-01-03] MEDS ORDERED: LIDOCAINE 1% (MDV) 20 ML INJ ONE (16:13)
[2017-01-03] MEDS ORDERED: SOD CHLORIDE 0.9% 1,000 ML ONE (16:13)
[2017-01-03] MEDS ORDERED: FENTAnyl 50 MCG/ML VIAL ONE (16:37)
--- NOTE | 2017-01-03 19:54 | RADRPT ---
PROCEDURE: XR Chest. CLINICAL INDICATION: Left anterior chest wall cardiac pacer placement, now for evaluation of poten tial pneumothorax TECHNIQUE: Single frontal view of the chest. COMPARISON: 12/25/2016. FINDINGS: New left anterior chest wall single chamber cardiac pacer with lead tip in the right ventricle. The re is no evident pneumothorax. Cardiomegaly and atherosclerotic calcifications in the thoracic aorta. Improved aeration in the isa ateral lungs over interval, with mild persistent pulmonary vascular congestion and right lung base a telectasis. No signs of pleural fluid are seen. The osseous structures and soft tissues are unremarkable. IMPRESSION: 1. Interval left anterior chest wall single chamber cardiac pacer. 2. No evident pneumothorax. 3. Improved aeration bilateral lungs over interval. 4. Mild persistent pulmonary vascular congestion and right lung base atelectasis. RPTAT: [facility] Physician Everardo Date Time Electronically viewed and signed by Physician Everardo on 01/03/2017 19:54 RS/
[2017-01-03] MEDS: ATORVASTATIN 40 MG TAB PO SCH (22:59)
[2017-01-03] MEDS: INSULIN DETEMIR [LEVEMIR] 3ML CART SC SCH (23:03)
[2017-01-03] MEDS: CEFAZOLIN 1 GM/50 ML (PMX) 50 ML IVPB SCH (23:41)
[2017-01-04] VITALS (12 sets, daily range): BP systolic 119–151; BP diastolic 59–70; PULSE 63–68; RESP 18
[2017-01-04] MEDS: ACCU-CHEK XX SCH (02:00)
[2017-01-04] MEDS: LEVOTHYROXINE 75 MCG TAB PO SCH (05:54)
[2017-01-04] MEDS: CEFAZOLIN 1 GM/50 ML (PMX) 50 ML IVPB SCH ×2 (05:54→14:29)
[2017-01-04 07:09] LABS: ADD SCAN DIFF NO
[2017-01-04 07:17] LABS: BASOPHILS % 0.2 % (0.0-2.0); EOSINOPHILS # 0.3 10^3/ul (0.0-0.5); EOSINOPHILS % 2.4 % (0.0-7.0); HEMATOCRIT 32.6 % (42.0-52.0); HEMOGLOBIN 10.3 g/dl (14.0-18.0); LYMPHOCYTES # 1.5 10^3/ul (0.8-2.9); LYMPHOCYTES % 11.8 % (15.0-51.0); MEAN CORPUSCULAR HEMOGLOBIN 29.2 pg (29.0-33.0); MEAN CORPUSCULAR HGB CONC 31.6 g/dl (32.0-37.0); MEAN CORPUSCULAR VOLUME 92.4 fl (82.0-101.0); MEAN PLATELET VOLUME 12.1 fl (7.4-10.4); MONOCYTES % 7.6 % (0.0-11.0); NEUTROPHIL # 9.2 10^3/ul (1.6-7.5); NEUTROPHILS % 73.5 % (39.0-77.0); PLATELET COUNT 269 10^3/UL (140-415); RED BLOOD COUNT 3.53 10^6/ul (4.70-6.10); RED CELL DISTRIBUTION WIDTH 17.9 % (11.5-14.5); WHITE BLOOD COUNT 12.5 10^3/ul (4.8-10.8)
--- NOTE | 2017-01-04 07:20 | OPR ---
DATE OF OPERATION: PREOPERATIVE DIAGNOSIS: Ventricular fibrillation. POSTOPERATIVE DIAGNOSIS: Ventricular fibrillation. OPERATION: Implantation of AICD lead and generator. SURGEON: Alphonse Kim MD DESCRIPTION OF PROCEDURE: Left deltopectoral area was ____ sterile drapes. Skin and subcutaneous t issues infiltrated with lidocaine. Incision made, carried down to pectoral fascia approximately ___ _ inferior to the incision. Cephalic vein was isolated, and the guidewire was advanced but could no t reach the central circulation due to severe tortuosity. Subsequently, the patient was placed in [facility]. Axillary/subclavian system was entered. Note procedure was done without any contrast because of the patient's renal situation. A [employer] [place] SG model 0292, seri al #[id number] was placed under fluoroscopic guidance into the RV apex, screwed in place. R-wave was 13 .6 millivolts, impedance 633 ohms, threshold 0.8 volts. Lead was secured to ____ sutures and was at tached to an [employer] EL ICD VR, model D140, serial #[id number], which was placed in the pocket. Pocket w as irrigated with triple-antibiotic solution. ____ was administered. Deep layer was closed with in terrupted 2-0 Vicryl, middle layer with continuous 3-0 Vicryl, subcuticular layer with 4-0 Vicryl. The patient tolerated procedure well, left the operating room in good condition. Dictated By: ALPHONSE SANDY/ROSANGELA Conf#: [id number] DID#: [id number]
[2017-01-04] MEDS: INSULIN ASPART [NOVOLOG] 3 ML PEN SC SCH ×3 (07:25→17:31)
[2017-01-04 08:09] LABS: CALCIUM 8.8 mg/dl (8.4-10.2); CREATININE 2.16 mg/dl (0.61-1.24); MAGNESIUM 2.5 mg/dl (1.7-2.5); PHOSPHORUS 4.1 mg/dl (2.5-4.9); POTASSIUM 4.2 mmol/L (3.5-5.1)
--- NOTE | 2017-01-04 08:39 | PN ---
Date/Time of Note Date/Time of Note DATE: 01/04/17 TIME: 08:36 Assessment/Plan VTE Prophylaxis VTE Prophylaxis Intervention: other Lines/Catheters IV Catheter Type (from Nrs): Peripheral IV Urinary Cath still in place: No Assessment/Plan Assessment/Plan 1. Post mi and defibrillator placement, cards to see, home tomm if stable 2. Few rales on exam, cxr ordered, will resume lasix and arb 3. CKD stable, ARF resolved 4. Myelofibrosis, stable. 5. DM, control cont to improve (did not have many calories yesterday) Subjective 24 Hr Interval Summary Respiratory: cough (mild and not productive), No shortness of breath Cardiovascular: No chest pain Gastrointestinal: no complaints Genitourinary: no complaints Exam/Review of Systems Vital Signs Vitals Vital Signs Date Time Temp Pulse Resp B/P Pulse Ox O2 Delivery O2 Flow Rate FiO2 01/04/17 08:20 63 01/04/17 07:15 97.7 18 151/70 95 01/03/17 19:32 Nasal Cannula 2.0 01/01/17 01:26 21 Intake and Output 01/03/17 01/03/17 01/04/17 15:00 23:00 07:00 Intake Total 1700 ml Output Total 1425 ml Balance 275 ml Exam Neck: No jvd Respiratory: diminished breath sounds (few rales at bases right>left) Cardiovascular: S3, S4, regular rate and rhythm Gastrointestinal: soft Extremities: No edema (and no calf tend) Results Result Diagram: 01/04/17 0515 01/04/17 0515 Results 24 hrs Laboratory Tests Test 01/03/17 11:44 01/03/17 21:14 01/04/17 05:15 01/04/17 07:59 Bedside Glucose 118 169 71 White Blood Count 12.5 H Red Blood Count 3.53 L Hemoglobin 10.3 L Hematocrit 32.6 L Mean Corpuscular Volume 92.4 Mean Corpuscular Hemoglobin 29.2 Mean Corpuscular Hemoglobin Concent 31.6 L Red Cell Distribution Width 17.9 H Platelet Count 269 Mean Platelet Volume 12.1 H Neutrophils % 73.5 Lymphocytes % 11.8 L Monocytes % 7.6 Eosinophils % 2.4 Basophils % 0.2 Nucleated Red Blood Cells % 0.0 Neutrophils # 9.2 H Lymphocytes # 1.5 Monocytes # 1.0 H Eosinophils # 0.3 Basophils # 0.0 Nucleated Red Blood Cells # 0.0 Sodium Level 136 Potassium Level 4.2 Chloride Level 108 Carbon Dioxide Level 21 Anion Gap 11 Blood Urea Nitrogen 42 H Creatinine 2.16 H Glucose Level 97 # Calcium Level 8.8 Phosphorus Level 4.1 Magnesium Level 2.5 Medications Medications Current Medications Bisacodyl (Dulcolax Supp) 10 mg DAILY PRN [place] CONSTIPATION; Start 12/16/16 at 16 :00 Miscellaneous Information 1 ea NOTE XX ; Start 12/16/16 at 18:00 Glucose (Glutose) 15 gm Q15M PRN PO DECREASED GLUCOSE; Start 12/16/16 at 18:00 Glucose (Glutose) 22.5 gm Q15M PRN PO DECREASED GLUCOSE; Start 12/16/16 at 18: 00 Dextrose (D50w Syringe) 25 ml Q15M PRN IV DECREASED GLUCOSE; Start 12/16/16 at 18:00 Dextrose (D50w Syringe) 50 ml Q15M PRN IV DECREASED GLUCOSE; Start 12/16/16 at 18:00 Glucagon (Glucagen) 1 mg Q15M PRN IM DECREASED GLUCOSE; Start 12/16/16 at 18:00 Glucose (Glutose) 15 gm Q15M PRN BUCCAL DECREASED GLUCOSE; Start 12/16/16 at 18 :00 Morphine Sulfate (morphine) 1 mg Q4H PRN IV PAIN LEVEL 1-5 Last administered on 01/01/17 02:11; Admin Dose 1 MG; Start 12/20/16 at 11:30 Nitroglycerin (Nitroglycerin (Sl Tab) 0.4 Mg) 1 tab Q5M PRN SL ANGINA Last administered on 12/21/16 01:06; Admin Dose 1 TAB; Start 12/21/16 at 00:30 Clopidogrel Bisulfate (plaVIX) 75 mg DAILY PO Last administered on 01/03/17 09 :36; Admin Dose 75 MG; Start 12/22/16 at 09:00 Ondansetron HCl (Zofran Inj) 4 mg Q4H PRN IV NAUSEA AND/OR VOMITING; Start at 12:00 Zolpidem Tartrate (Ambien) 5 mg HS PRN PO INSOMNIA Last administered on 20:32; Admin Dose 5 MG; Start 12/22/16 at 22:00 Atorvastatin Calcium (Lipitor) 40 mg HS PO Last administered on 01/03/17 22:59 ; Admin Dose 40 MG; Start 12/23/16 at 21:00 Hydralazine HCl (Apresoline) 10 mg Q6H PRN IV ELEVATED BLOOD PRESSURE; Start at 08:00 Aspirin (Halfprin) 81 mg DAILY PO Last administered on 01/03/17 09:36; Admin Dose 81 MG; Start 12/25/16 at 09:00 Multivit/Ca Carb/ B Cmplx/FA/Prenat (Nadiya-Ozzie) 1 tab DAILY PO Last administered on 01/03/17 09:36; Admin Dose 1 TAB; Start 12/25/16 at 09:00 Acetaminophen (Tylenol Tab) 650 mg Q6H PRN PO PAIN AND OR ELEVATED TEMP; Start 12/25/16 at 08:30 Docusate Sodium (Colace) 200 mg DAILY PO Last administered on 01/02/17 09:18; Admin Dose 200 MG; Start 12/25/16 at 09:00 Levothyroxine Sodium (Synthroid) 75 mcg DAILY@06 PO Last administered on 05:54; Admin Dose 75 MCG; Start 12/27/16 at 06:00 Pantoprazole (Protonix Tab) 40 mg AM PO Last administered on 01/03/17 09:36; Admin Dose 40 MG; Start 12/26/16 at 09:00 Patient Own Medication 1 ea BID PO Last administered on 01/03/17 22:55; Admin Dose 1 EA; Start 12/27/16 at 13:00 Alprazolam (Xanax) 0.25 mg BID PO Last administered on 01/03/17 23:08; Admin Dose 0.25 MG; Start 12/27/16 at 12:30 Diagnostic Test (Pha) (Accu-Chek) 1 ea 02 XX Last administered on 01/01/17 02: 00; Admin Dose 1 EA; Start 12/28/16 at 02:00 Amiodarone HCl (Cordarone) 200 mg QAM PO Last administered on 01/03/17 09:36; Admin Dose 200 MG; Start 12/30/16 at 09:00 Isosorbide Dinitrate (Isordil) 10 mg TID PO Last administered on 01/03/17 23: 00; Admin Dose 10 MG; Start 12/30/16 at 21:00 Insulin Detemir (Levemir) 40 unit DAILY@20 SC Last administered on 01/03/17 23 :03; Admin Dose 40 UNIT; Start 01/01/17 at 20:00 Metoprolol Succinate (Toprol Xl) 75 mg BID PO Last administered on 01/03/17 22 :59; Admin Dose 75 MG; Start 01/01/17 at 21:00 Hydralazine HCl 25 mg 25 mg TID PO Last administered on 01/03/17 22:59; Admin Dose 25 MG; Start 01/01/17 at 13:00 Cefazolin Sodium (Ancef 1 Gm/50 ml (Pmx)) 50 ml @ 100 mls/hr Q8 IVPB Last administered on 01/04/17 05:54; Admin Dose 100 MLS/HR; Start 01/03/17 at 23:00 ; Stop 01/04/17 at 18:00 Furosemide (Lasix) 40 mg DAILY PO ; Start 01/04/17 at 09:00; Status UNV Losartan Potassium (Cozaar) 25 mg DAILY PO ; Start 01/04/17 at 09:00; Status UNV Potassium Chloride (Micro-K) 16 meq ONCE ONCE PO ; Start 01/04/17 at 09:00; Stop 01/04/17 at 09:01; Status UNV JULIANNE ESTRELLA MD Jan 04, 2017 08:39
--- NOTE | 2017-01-04 08:53 | CONS ---
DATE OF ADMISSION: 12/16/2016 DATE OF CONSULTATION: 01/04/2017 HEMATOLOGY PROGRESS NOTE SUBJECTIVE: The patient is feeling well. Did have an implantable defibrillator placed yesterday wi thout difficulty. This was done without contrast. The patient does not complain of pain in the area of the implantation. OBJECTIVE: VITAL SIGNS: Temperature 97.7, pulse 63 per minute and regular, respirations 18, blood pressure 151 /70, pulse oximetry 95% on room air. SKIN: Pale, with ecchymoses on the left anterior chest. No rashes. HEENT: Normocephalic. No evidence of trauma. Pupils are equal, round, react to light and accommod ation. Sclerae are nonicteric. Oral mucosa is moist, without lesions. NECK: Supple. No jugular venous distention or thyroid enlargement. CHEST: There is a sternotomy scar. Otherwise clear to auscultation and percussion. There is placement of the defibrillator in the left anterior chest. NODES: No palpable lymphadenopathy. ABDOMEN: Soft. No masses, no ascites. EXTREMITIES: Good range of motion. No clubbing, edema or cyanosis. No palpable cords. NEUROLOGIC: Normal. LABORATORY: White count 12,500, hemoglobin 10.3, hematocrit 32.6, platelet count 269,000. Sodium i s 136, potassium 4.2, BUN 42, creatinine 2.16. ASSESSMENT: 1. Myelofibrosis. 2. Coronary artery disease, status post myocardial infarction and ventricular fibrillation. 3. Implantable defibrillator placement. 4. Small-bowel obstruction. Resolved 5. Renal failure. Improved. It is likely the patient will be discharged tomorrow. He will continue on Jakafi 5 mg twice a day a nd follow up with Dr. Rossi as an outpatient. The patient's renal function is actually improved. No further dialysis. Dictated By: DARNELL AMARAL MD SR/NTS Conf#: [id number] DID#: [id number]
[2017-01-04] MEDS: HEPARIN 5,000 UNIT/0.5 ML VIAL SC SCH ×2 (09:00→21:00)
[2017-01-04] MEDS: DOCUSATE SODIUM 100 MG CAP PO SCH (09:00)
[2017-01-04] MEDS ORDERED: POTASSIUM CHLORIDE (SR) 8 MEQ CAP PO ONE (09:00)
[2017-01-04] MEDS ORDERED: FUROSEMIDE 40 MG TAB PO SCH (09:00)
[2017-01-04] MEDS ORDERED: FUROSEMIDE 20 MG TAB PO SCH (09:00)
[2017-01-04] MEDS: MULTIVIT/CA CARB/B CMPLX/FA TAB PO SCH (09:40)
[2017-01-04] MEDS: ASPIRIN (EC) 81 MG TAB PO SCH (09:40)
[2017-01-04] MEDS: LOSARTAN 25 MG TAB PO SCH (09:40)
[2017-01-04] MEDS: CLOPIDOGREL 75 MG TAB PO SCH (09:40)
[2017-01-04] MEDS: AMIODARONE 200 MG TAB PO SCH (09:41)
[2017-01-04] MEDS: ISOSORBIDE DINITRATE 5 MG TAB PO SCH ×3 (09:42→21:30)
[2017-01-04] MEDS: METOPROLOL (XL) 50 MG TAB PO SCH ×2 (09:43→21:32)
[2017-01-04] MEDS: PANTOPRAZOLE (EC) 40 MG TAB PO SCH (09:44)
[2017-01-04] MEDS: RUXOLITINIB 5 MG PO SCH ×2 (09:48→21:34)
[2017-01-04] MEDS: ALPRAZOLAM 0.25 MG TAB PO SCH ×2 (09:49→21:28)
[2017-01-04] MEDS: FUROSEMIDE 40 MG TAB PO SCH (09:49)
--- NOTE | 2017-01-04 11:22 | RADRPT ---
PROCEDURE: XR Chest 1 View. CLINICAL INDICATION: Shortness of breath, congestive heart failure TECHNIQUE: AP view of the chest was obtained. COMPARISON: January 03, 2017 at 06:56 p.m. FINDINGS: The heart size is within normal limits. Calcified atherosclerosis is noted in the aorta. Median libby rnotomy wires and surgical clips overlie the heart. Left-sided defibrillator has its lead over the heart and appears stable. The lungs are hypoinflated. Atelectasis is seen at the lung bases. No co nsolidations are identified. No pneumothorax is seen. Osseous structures are intact. IMPRESSION: Calcified atherosclerosis in the aorta. Hypoinflated lungs with atelectasis at the lung bases. RPTAT: AA .Davis Ramirez MD, MD Date Time Electronically viewed and signed by .Davis Ramirez MD, on 01/04/2017 11:22 .P/
--- NOTE | 2017-01-04 15:38 | CONS ---
Date/Time of Note Date/Time of Note DATE: 01/04/17 TIME: 15:27 Assessment/Plan Assessment/Plan Additional Assessment/Plan 81 yowm w/ CABG, ICM EF 30%, and other issues who had a SBO obstruction and later an NSTEMI and VT/VF arrest. Had PCI to SVG. Had ICD placed yesterday by Dr. Kim. Device is working properly on interrogation. CXR reveals stable lead w/o PTX. Pt feels well. Ok for discharge tomorrow. - continue meds: aspirin, plavix, amiodarone, hydralazine, isordil and metoprolol - post-device care: change dressing every other day; no showers (don't wet site ) for 1 week (can do sponge bath), do not raise left arm above shoulder height for at least 4 weeks, f/u at [facility] [place] device clinic in ~ 1 week to check site Consultation Date/Type/Reason Admit Date/Time Dec 16, 2016 at 17:40 Initial Consult Date 12/25/16 Type of Consultation: cardiology Referring Provider: JULIANNE ESTRELLA MD 24 HR Interval Summary Free Text/Dictation Pt feels well. Denies cp, sob, f/c. Exam/Review of Systems Vital Signs Vitals Vital Signs Date Time Temp Pulse Resp B/P Pulse Ox O2 Delivery O2 Flow Rate FiO2 01/04/17 12:51 64 01/04/17 11:21 98.5 18 119/59 94 01/03/17 19:32 Nasal Cannula 2.0 01/01/17 01:26 21 Intake and Output 01/03/17 01/03/17 01/04/17 14:59 22:59 06:59 Intake Total 1700 ml Output Total 1425 ml Balance 275 ml Exam Constitutional: alert, oriented Neck: No jvd Respiratory: other (crackles at bases, o/w clear) Cardiovascular: other (1/6 CORIN), regular rate and rhythm Extremities: No edema Skin: other (dsg over ICD site - no hematoma) Results Result Diagram: 01/04/17 0515 01/04/17 0515 Results 24 hrs Laboratory Tests Test 01/03/17 21:14 01/04/17 05:15 01/04/17 07:59 01/04/17 12:44 Bedside Glucose 169 71 229 H White Blood Count 12.5 H Red Blood Count 3.53 L Hemoglobin 10.3 L Hematocrit 32.6 L Mean Corpuscular Volume 92.4 Mean Corpuscular Hemoglobin 29.2 Mean Corpuscular Hemoglobin Concent 31.6 L Red Cell Distribution Width 17.9 H Platelet Count 269 Mean Platelet Volume 12.1 H Neutrophils % 73.5 Lymphocytes % 11.8 L Monocytes % 7.6 Eosinophils % 2.4 Basophils % 0.2 Nucleated Red Blood Cells % 0.0 Neutrophils # 9.2 H Lymphocytes # 1.5 Monocytes # 1.0 H Eosinophils # 0.3 Basophils # 0.0 Nucleated Red Blood Cells # 0.0 Sodium Level 136 Potassium Level 4.2 Chloride Level 108 Carbon Dioxide Level 21 Anion Gap 11 Blood Urea Nitrogen 42 H Creatinine 2.16 H Glucose Level 97 # Calcium Level 8.8 Phosphorus Level 4.1 Magnesium Level 2.5 Medications Medications Current Medications Bisacodyl (Dulcolax Supp) 10 mg DAILY PRN [place] CONSTIPATION; Start 12/16/16 at 16 :00 Miscellaneous Information 1 ea NOTE XX ; Start 12/16/16 at 18:00 Glucose (Glutose) 15 gm Q15M PRN PO DECREASED GLUCOSE; Start 12/16/16 at 18:00 Glucose (Glutose) 22.5 gm Q15M PRN PO DECREASED GLUCOSE; Start 12/16/16 at 18: 00 Dextrose (D50w Syringe) 25 ml Q15M PRN IV DECREASED GLUCOSE; Start 12/16/16 at 18:00 Dextrose (D50w Syringe) 50 ml Q15M PRN IV DECREASED GLUCOSE; Start 12/16/16 at 18:00 Glucagon (Glucagen) 1 mg Q15M PRN IM DECREASED GLUCOSE; Start 12/16/16 at 18:00 Glucose (Glutose) 15 gm Q15M PRN BUCCAL DECREASED GLUCOSE; Start 12/16/16 at 18 :00 Morphine Sulfate (morphine) 1 mg Q4H PRN IV PAIN LEVEL 1-5 Last administered on 01/01/17 02:11; Admin Dose 1 MG; Start 12/20/16 at 11:30 Nitroglycerin (Nitroglycerin (Sl Tab) 0.4 Mg) 1 tab Q5M PRN SL ANGINA Last administered on 12/21/16 01:06; Admin Dose 1 TAB; Start 12/21/16 at 00:30 Clopidogrel Bisulfate (plaVIX) 75 mg DAILY PO Last administered on 01/04/17 09 :40; Admin Dose 75 MG; Start 12/22/16 at 09:00 Ondansetron HCl (Zofran Inj) 4 mg Q4H PRN IV NAUSEA AND/OR VOMITING; Start at 12:00 Zolpidem Tartrate (Ambien) 5 mg HS PRN PO INSOMNIA Last administered on 20:32; Admin Dose 5 MG; Start 12/22/16 at 22:00 Atorvastatin Calcium (Lipitor) 40 mg HS PO Last administered on 01/03/17 22:59 ; Admin Dose 40 MG; Start 12/23/16 at 21:00 Hydralazine HCl (Apresoline) 10 mg Q6H PRN IV ELEVATED BLOOD PRESSURE; Start at 08:00 Aspirin (Halfprin) 81 mg DAILY PO Last administered on 01/04/17 09:40; Admin Dose 81 MG; Start 12/25/16 at 09:00 Multivit/Ca Carb/ B Cmplx/FA/Prenat (Nadiya-Ozzie) 1 tab DAILY PO Last administered on 01/04/17 09:40; Admin Dose 1 TAB; Start 12/25/16 at 09:00 Acetaminophen (Tylenol Tab) 650 mg Q6H PRN PO PAIN AND OR ELEVATED TEMP; Start 12/25/16 at 08:30 Docusate Sodium (Colace) 200 mg DAILY PO Last administered on 01/02/17 09:18; Admin Dose 200 MG; Start 12/25/16 at 09:00 Levothyroxine Sodium (Synthroid) 75 mcg DAILY@06 PO Last administered on 05:54; Admin Dose 75 MCG; Start 12/27/16 at 06:00 Pantoprazole (Protonix Tab) 40 mg AM PO Last administered on 01/04/17 09:44; Admin Dose 40 MG; Start 12/26/16 at 09:00 Patient Own Medication 1 ea BID PO Last administered on 01/04/17 09:48; Admin Dose 1 EA; Start 12/27/16 at 13:00 Alprazolam (Xanax) 0.25 mg BID PO Last administered on 01/04/17 09:49; Admin Dose 0.25 MG; Start 12/27/16 at 12:30 Diagnostic Test (Pha) (Accu-Chek) 1 ea 02 XX Last administered on 01/01/17 02: 00; Admin Dose 1 EA; Start 12/28/16 at 02:00 Amiodarone HCl (Cordarone) 200 mg QAM PO Last administered on 01/04/17 09:41; Admin Dose 200 MG; Start 12/30/16 at 09:00 Isosorbide Dinitrate (Isordil) 10 mg TID PO Last administered on 01/04/17 14: 25; Admin Dose 10 MG; Start 12/30/16 at 21:00 Insulin Detemir (Levemir) 40 unit DAILY@20 SC Last administered on 01/03/17 23 :03; Admin Dose 40 UNIT; Start 01/01/17 at 20:00 Metoprolol Succinate (Toprol Xl) 75 mg BID PO Last administered on 01/04/17 09 :43; Admin Dose 75 MG; Start 01/01/17 at 21:00 Hydralazine HCl 25 mg 25 mg TID PO Last administered on 01/04/17 14:30; Admin Dose 25 MG; Start 01/01/17 at 13:00 Cefazolin Sodium (Ancef 1 Gm/50 ml (Pmx)) 50 ml @ 100 mls/hr Q8 IVPB Last administered on 01/04/17 14:29; Admin Dose 100 MLS/HR; Start 01/03/17 at 23:00 ; Stop 01/04/17 at 18:00 Losartan Potassium (Cozaar) 25 mg DAILY PO Last administered on 01/04/17 09:40 ; Admin Dose 25 MG; Start 01/04/17 at 09:00 Heparin Sodium (Porcine) (Heparin (5000 Units/0.5 ml)) 5,000 unit BID SC ; Start 01/04/17 at 09:00 Furosemide (Lasix) 40 mg DAILY@06 PO Last administered on 01/04/17 09:49; Admin Dose 40 MG; Start 01/04/17 at 09:30 JORGE OSEGUERA Jan 04, 2017 15:38
--- NOTE | 2017-01-04 20:52 | RADRPT ---
Vent Rate: 66 bpm RR Interval: 0 msec ME Interval: 182 msec QRS Duration: 148 msec QT Interval: 496 msec QTC Interval: 519 msec P-R-T Coggon: 22 - -50 - 0 degrees Normal sinus rhythm Left axis deviation Left ventricular hypertrophy with QRS widening and repolarization abnormality Abnormal ECG Electronically Signed By: Elder Cavazos [id number]
[2017-01-04] MEDS: ATORVASTATIN 40 MG TAB PO SCH (21:31)
[2017-01-04] MEDS: INSULIN DETEMIR [LEVEMIR] 3ML CART SC SCH (21:39)
[2017-01-05] VITALS (8 sets, daily range): BP systolic 124–148; BP diastolic 65–69; PULSE 62–68; RESP 18–20
[2017-01-05] MEDS: ACCU-CHEK XX SCH (02:00)
[2017-01-05] MEDS: LEVOTHYROXINE 75 MCG TAB PO SCH (06:33)
[2017-01-05] MEDS: FUROSEMIDE 40 MG TAB PO SCH (06:33)
[2017-01-05 07:05] LABS: ADD SCAN DIFF NO
[2017-01-05 07:10] LABS: BASOPHILS % 0.3 % (0.0-2.0); EOSINOPHILS # 0.3 10^3/ul (0.0-0.5); EOSINOPHILS % 2.6 % (0.0-7.0); HEMATOCRIT 29.2 % (42.0-52.0); HEMOGLOBIN 9.3 g/dl (14.0-18.0); LYMPHOCYTES # 1.3 10^3/ul (0.8-2.9); MEAN CORPUSCULAR HGB CONC 31.8 g/dl (32.0-37.0); MONOCYTE # 0.8 10^3/ul (0.3-0.9); MONOCYTES % 8.4 % (0.0-11.0); NEUTROPHILS % 73.2 % (39.0-77.0); PLATELET COUNT 228 10^3/UL (140-415); RED BLOOD COUNT 3.21 10^6/ul (4.70-6.10); RED CELL DISTRIBUTION WIDTH 17.6 % (11.5-14.5); WHITE BLOOD COUNT 9.6 10^3/ul (4.8-10.8)
[2017-01-05] MEDS: INSULIN ASPART [NOVOLOG] 3 ML PEN SC SCH ×2 (07:25→11:40)
[2017-01-05 07:44] LABS: POTASSIUM 4.3 mmol/L (3.5-5.1)
[2017-01-05 07:46] LABS: CREATININE 2.41 mg/dl (0.61-1.24)
[2017-01-05 07:47] LABS: CALCIUM 8.9 mg/dl (8.4-10.2); MAGNESIUM 2.1 mg/dl (1.7-2.5)
[2017-01-05] MEDS: AMIODARONE 200 MG TAB PO SCH (08:28)
[2017-01-05] MEDS: PANTOPRAZOLE (EC) 40 MG TAB PO SCH (08:28)
[2017-01-05] MEDS: MULTIVIT/CA CARB/B CMPLX/FA TAB PO SCH (08:28)
[2017-01-05] MEDS: DOCUSATE SODIUM 100 MG CAP PO SCH (08:28)
[2017-01-05] MEDS: CLOPIDOGREL 75 MG TAB PO SCH (08:29)
[2017-01-05] MEDS: ISOSORBIDE DINITRATE 5 MG TAB PO SCH ×2 (08:29→12:26)
[2017-01-05] MEDS: ASPIRIN (EC) 81 MG TAB PO SCH (08:29)
[2017-01-05] MEDS: LOSARTAN 25 MG TAB PO SCH (08:30)
[2017-01-05] MEDS: RUXOLITINIB 5 MG PO SCH (08:30)
[2017-01-05] MEDS: METOPROLOL (XL) 50 MG TAB PO SCH (08:30)
[2017-01-05] MEDS: ALPRAZOLAM 0.25 MG TAB PO SCH (08:38)
[2017-01-05] MEDS: HEPARIN 5,000 UNIT/0.5 ML VIAL SC SCH (08:48)
--- NOTE | 2017-01-05 10:24 | PDOCDIS ---
Discharge Instructions CONDITION Patient Condition: Good HOME CARE INSTRUCTIONS: Diet Instructions: 2gm NaSpecial Diet: Cardiac, Renal Diet, Diabetic ACTIVITY: Activity Restrictions: Slowly Increase Activity Rest between Activity Avoid heavy lifting Avoid Heavy Housework FOLLOW UP/APPOINTMENTS Appointments Cardiology - Dr. Daigle, Electrophysiology - Dr. Kim - in 1-2 weeks; Dr. Millan - Surgery - in 1-2 weeks; PCP in 2 weeks TY RAGLAND Jan 05, 2017 10:23
--- NOTE | 2017-01-05 10:54 | DS ---
Date/Time of Note Date/Time of Note DATE: 01/05/17 TIME: 10:40 Discharge Summary Admission/Discharge Info Admit Date/Time Dec 16, 2016 at 17:40 Discharge Date/Time January 05, 2017, noon Final Diagnosis Acute cardiac arrest secondary to ventricular arrhythmia with hypotensive shock ; NSTEMI, CAD, acute renal failure on CKD, SBO, myelofibrosis, DM II Patient Condition: Good Consults Dr. Ferrara - GI Dr. Montana - Surgery Dr. Daigle - Cardiology Dr. Chao - Vascular Surgery Dr. Amaral - Hematology/Oncology Dr. Yates - Electrophysiology Procedures 12/21 - L and R heart cath 01/03 - ICD placement Hx of Present Illness 81yo man with CKD IV, DM II on insulin, myelofibrosis, CAD presented to the ED with n/v and abd pain with initial workup consistent with SBO. Hospital Course He was initially admitted with nausea, vomiting, and abdominal pain with concern for pancreatitis vs cholecystitis vs colitis vs SBO. HIDA was negative and he was seen by GI and surgery and found to have SBO requiring NG tube placement on 12/17. He was also empirically started on abx due to leukocytosis on arrival. His NG tube was uncomfortable at times and was pulled out by the patient requiring multiple replacements during the stay. Ultimately it was removed on 12/23 with resolution of the SBO. His renal function slowly started to worsen likely due to hypovolemia and he had acute renal failure noted on 12/19. On 12/21, he had acute hypotensive shock from acute ventricular arrhythmia and cardiac arrest and was transferred to the ICU on pressors and intubated. He was started on amiodarone in addition to his medical therapy. NSTEMI at that time, as well. He had emergent cath and had acute CHF on his underlying ischemic cardiomyopathy. His renal function continued to worsen as well secondary to the hypotension and dye and he required HD started on 12/24 through 01/01. He was extubated on 12/25 and weaned to room air. He continued to improve with return of bowel function, improvement of urine output with stabilization of his renal function and cessation of HD on 01/01. Cr remains back to his baseline. He continues on medical therapy for his cardiac issues on BB, nitrate, ASA, Plavix, ARB. Due to concern for possible aspiration during the cardiac event, he was briefly put back on abx and this was discontinued; infectious workup unrevealing. With the acute nature of the cardiac event in setting of his overall medical status, it was determined he would need ICD placement which was done without event on 01/03. He remained stable for discharge. By Problem: SBO - presenting complaint, resolved with bowel rest and NG tube; unclear etiology Acute cardiac arrest from ventricular arrhythmia on CAD, acute hypotensive shock with acute respiratory failure, acute CHF on ischemic cardiomyopathy - unclear trigger to event and stabilized on pressors and on the ventilator. He had L and R heart cath on 12/21. He was managed medically and will continue on ASA, Plavix, BB, nitrate, ARB, furosemide, Tricor on dc. ICD placed 12/21. Amiodarone was added to his regimen Acute renal failure on CKD IV - secondary initially to poor volume status and volume depletion from vomiting with subsequent hypotensive shock and dye; required HD with return to baseline renal function prior to DC. DM II - will continue on home Levemir and short acting insulin as well as Januvia Chronic anemia of myelofibrosis - did require 2 units PRBC transfusion on 12/21 around time of hypotensive event; no gross bleeding noted; to continue on Jakafi Acquired hypothyroidism - continue levothyroxine On day of dc, no acute complaints; no cp or SOB. Chronic cough which began prior to admission after recent viral episode. No pain at ICD insertion site. No f/c. Tolerating po. Vitals wnl Gen: NAD HEENT: mmm, no op lesions CV: RRR Chest: ICD site c/d/i Pulm: CTA bilat Abd: soft, NT/ND, +BS Ext: 1+ pedal edema bilat Neuro: fully oriented, no facial droop To resume home meds with addition of amiodarone as new prescription Home Meds Reported Medications Darbepoetin Magdiel in Polysorbat (Aranesp) 10 Mcg/0.4 Ml Syringe, 5 MCG IJ 3 x a week., SYR 12/16/16 Nitroglycerin* (Nitroglycerin* SL) 0.4 Mg Tab.subl, 0.4 MG SL Q5MIN Y for CHEST PAIN, BOTTLE 12/16/16 Insulin Detemir (Levemir) 100 Unit/1 Ml Vial, 60 UNIT SC DAILY, VIAL 12/16/16 Insulin Aspart (Novolog) 100 Unit/1 Ml Cartridge, 0-12 UNIT SQ sliding scale 12/16/16 Sitagliptin* (Januvia*) 25 Mg Tablet, 25 MG PO DAILY, #30 TAB 12/16/16 Atorvastatin Calcium* (Atorvastatin Calcium*) 20 Mg Tablet, 20 MG PO QHS, #30 TAB 12/16/16 Clopidogrel Bisulfate* (Clopidogrel Bisulfate*) 75 Mg Tablet, 75 MG PO DAILY, # 30 TAB 12/16/16 Ruxolitinib Phosphate (Jakafi) 5 Mg Tablet, 5 MG PO BID, TAB 12/16/16 Metoprolol Succinate* (Toprol XL*) 100 Mg Tab.sr.24h, 100 MG PO DAILY 07/20/13 Digoxin* (Digitek*) 125 Mcg Tablet, 62 MCG PO DAILY 07/20/13 Losartan Potassium* (Cozaar*) 100 Mg Tablet, 100 MG PO DAILY 07/20/13 Amlodipine Besylate* (Amlodipine Besylate*) 5 Mg Tablet, 5 MG PO DAILY 07/20/13 Furosemide (Lasix) 20 Mg Tab, 20 MG PO BID 07/20/13 Allopurinol* (Zyloprim*) 100 Mg Tablet, 100 MG PO TID 07/20/13 Levothyroxine Sodium* (Synthroid*) 50 Mcg Tablet, 50 MCG PO DAILY 07/20/13 Fenofibrate Nanocrystallized* (Tricor*) 145 Mg Tablet, 145 MG PO DAILY 07/20/13 Follow-up Plan Cardiology, EP, PCP, surgery/GI Pending Labs Laboratory Tests Test 01/04/17 12:44 01/04/17 17:28 01/04/17 21:27 01/05/17 01:20 Bedside Glucose 229mg/dL (70-220) 155mg/dL (70-220) 205mg/dL (70-220) 162mg/dL (70-220) Test 01/05/17 06:30 01/05/17 06:35 01/05/17 07:32 White Blood Count 9.610^3/ul (4.8-10.8) Red Blood Count 3.2110^6/ul (4.70-6.10) Hemoglobin 9.3g/dl (14.0-18.0) Hematocrit 29.2% (42.0-52.0) Mean Corpuscular Volume 91.0fl (82.0-101.0) Mean Corpuscular Hemoglobin 29.0pg (29.0-33.0) Mean Corpuscular Hemoglobin Concent 31.8g/dl (32.0-37.0) Red Cell Distribution Width 17.6% (11.5-14.5) Platelet Count 87780^3/UL (140-415) Mean Platelet Volume 12.0fl (7.4-10.4) Neutrophils % 73.2% (39.0-77.0) Lymphocytes % 13.0% (15.0-51.0) Monocytes % 8.4% (0.0-11.0) Eosinophils % 2.6% (0.0-7.0) Basophils % 0.3% (0.0-2.0) Nucleated Red Blood Cells % 0.0/100WBC (0.0-0.0) Neutrophils # 7.010^3/ul (1.6-7.5) Lymphocytes # 1.310^3/ul (0.8-2.9) Monocytes # 0.810^3/ul (0.3-0.9) Eosinophils # 0.310^3/ul (0.0-0.5) Basophils # 0.010^3/ul (0.0-0.1) Nucleated Red Blood Cells # 0.010^3/ul (0.0-0.0) Sodium Level 138mmol/L (135-144) Potassium Level 4.3mmol/L (3.5-5.1) Chloride Level 104mmol/L (97-110) Carbon Dioxide Level 22mmol/L (21-31) Anion Gap 16 (8-16) Blood Urea Nitrogen 46mg/dl (7-20) Creatinine 2.41mg/dl (0.61-1.24) Glucose Level 133mg/dl (70-220) Calcium Level 8.9mg/dl (8.4-10.2) Magnesium Level 2.1mg/dl (1.7-2.5) Bedside Glucose 124mg/dL (70-220) Copies To: CC: SAMY DAIGLE; COLEEN FERRARA MD; LORENZO CHAO MD; JUMANA MONTANA M.D.; JULIANNE ESTRELLA MD; DARNELL AMARAL MD; THAI OLVERA MD, LOWELL Jan 05, 2017 10:52
== END 2017-01-05 14:05 | disposition home health service (06) | DRG 981 ==
LOC: E/R 10:44 → PP2 15:33 → OBSVTOIN 17:40 → ICU 12-21 07:52 → TEL 12-26 17:05
PROVIDERS: ADMIT Internal Medicine; ATTEND Internal Medicine
PROC: 0D9670Z Drainage of Stomach with Drainage Device, Via Natural or Artificial Opening (ICD-10-PCS; principal; 2016-12-17)
PROC: 0BH17EZ Insertion of Endotracheal Airway into Trachea, Via Natural or Artificial Opening (ICD-10-PCS; 2016-12-21)
PROC: 5A12012 Performance of Cardiac Output, Single, Manual (ICD-10-PCS; 2016-12-21)
PROC: 5A2204Z Restoration of Cardiac Rhythm, Single (ICD-10-PCS; 2016-12-21)
PROC: 4A023N8 Measurement of Cardiac Sampling and Pressure, Bilateral, Percutaneous Approach (ICD-10-PCS; 2016-12-21)
PROC: B213YZZ Fluoroscopy of Multiple Coronary Artery Bypass Grafts using Other Contrast (ICD-10-PCS; 2016-12-21)
PROC: B211YZZ Fluoroscopy of Multiple Coronary Arteries using Other Contrast (ICD-10-PCS; 2016-12-21)
PROC: 5A1945Z Respiratory Ventilation, 24-96 Consecutive Hours (ICD-10-PCS; 2016-12-21)
PROC: 02703ZZ Dilation of Coronary Artery, One Artery, Percutaneous Approach (ICD-10-PCS; 2016-12-21 09:00)
PROC: 06HY33Z Insertion of Infusion Device into Lower Vein, Percutaneous Approach (ICD-10-PCS; 2016-12-24)
PROC: 5A1D60Z (ICD-10-PCS; 2016-12-24)
PROC: 02HK3KZ Insertion of Defibrillator Lead into Right Ventricle, Percutaneous Approach (ICD-10-PCS; 2017-01-03)
PROC: 0JH608Z Insertion of Defibrillator Generator into Chest Subcutaneous Tissue and Fascia, Open Approach (ICD-10-PCS; 2017-01-03)
DX: K91.3 Postprocedural intestinal obstruction (principal); I21.4 Non-ST elevation (NSTEMI) myocardial infarction; J96.01 Acute respiratory failure with hypoxia; R57.8 Other shock; N17.0 Acute kidney failure with tubular necrosis; I50.23 Acute on chronic systolic (congestive) heart failure; N18.4 Chronic kidney disease, stage 4 (severe); I47.2 Ventricular tachycardia; I25.810 Atherosclerosis of coronary artery bypass graft(s) without angina pectoris; I46.9 Cardiac arrest, cause unspecified; I49.01 Ventricular fibrillation; D75.81 Myelofibrosis; I13.0 Hypertensive heart and chronic kidney disease with heart failure and stage 1 through stage 4 chronic kidney disease, or unspecified chronic kidney disease; E87.2 Acidosis; I82.611 Acute embolism and thrombosis of superficial veins of right upper extremity; I25.10 Atherosclerotic heart disease of native coronary artery without angina pectoris; E86.1 Hypovolemia; I25.5 Ischemic cardiomyopathy; E03.9 Hypothyroidism, unspecified; M10.9 Gout, unspecified; E11.22 Type 2 diabetes mellitus with diabetic chronic kidney disease; E78.5 Hyperlipidemia, unspecified; I48.91 Unspecified atrial fibrillation; Z95.1 Presence of aortocoronary bypass graft; F41.9 Anxiety disorder, unspecified; D63.8 Anemia in other chronic diseases classified elsewhere; Z98.890 Other specified postprocedural states; Z95.5 Presence of coronary angioplasty implant and graft; Z79.4 Long term (current) use of insulin
CPT/HCPCS: 31500; 33249; 36415; 36430; 36600; 71010; 71020; 74000; 74010; 74176; 74250; 75984; 76705; 78226; 80048; 80053; 80162; 81001; 81003; 82150; 82270; 82306; 82570; 82728; 82803; 82962; 83540; 83605; 83690; 83735; 83880; 84100; 84300; 84443; 84484; 85014; 85018; 85025; 85610; 85730; 86850; 86900; 86901; 86920; 87040; 87070; 87081; 87086; 90935; 92610; 92920; 93005; 93306; 93460; 93971; 94002; 94003; 94640; 94664; 94770; 96361; 96365; 96375; 97110; 97116; 97162; 97164; 97530; G0378; A9537; C1722; C1725; C1751; C1760; C1769; C1887; C1894; C1895; C9113; C9460; J0171; J0282; J0360; J0690; J0885; J1265; J1335; J1644; J1815; J1940; J2001; J2250; J2270; J2405; J2543; J3010; J3475; J3480; J7030; J7040; J7042; J7070; P9016; Q9967

== ENCOUNTER 2017-03-20 15:32 | Inpatient (IN) | payer MEDICARE, BC ==
[2017-03-20] VITALS (24 sets, daily range): BP systolic 95–141; BP diastolic 68–105; PULSE 67–89; RESP 21–35; Ht 170.2 cm; Wt 73.6 kg
[~2017-03-20] VITALS: Ht 170.2 cm; Wt 73.6 kg
[~2017-03-20 15:32] MED LIST changes: -ANAG0.5C; -ASPI-535; -ATOR10TA65 PO; +ATOR20TA38 PO; -CHLO25TA13; -CHOL20003 PO; +CLOP75TA4 PO; -CYAN100071 PO; +DARB10SY IJ; -FOL8 PO; -GLYB2.5T PO; +INSU100C3 SQ; +LEVEM SC; -NCN500CCR; +NITR0.4T6 SL; -PIOG15TA4 PO; -PYRI50CA PO; +SITA25TA3 PO; -[UNRECOGNIZED DRUG - CODE]
[2017-03-20] MEDS ORDERED: ACETAMINOPHEN 325 MG TAB PO PRN (17:00)
[2017-03-20] MEDS ORDERED: ONDANSETRON 4 MG INJ IV PRN (17:00)
[2017-03-20] MEDS: AMLODIPINE 5 MG TAB PO SCH (17:00)
[2017-03-20] MEDS ORDERED: NACL 0.9% 3 ML SYG IV SCH ×2 (17:00→17:30)
[2017-03-20 17:10] LABS: ADD SCAN DIFF NO
[2017-03-20 17:12] LABS: ABNORMAL IP MESSAGE 1; HEMATOCRIT 22.4 % (42.0-52.0); HEMOGLOBIN 7.5 g/dl (14.0-18.0); MEAN CORPUSCULAR HEMOGLOBIN 29.4 pg (29.0-33.0); MEAN CORPUSCULAR HGB CONC 33.5 g/dl (32.0-37.0); MEAN CORPUSCULAR VOLUME 87.8 fl (82.0-101.0); PLATELET COUNT 105 10^3/UL (140-415); RED BLOOD COUNT 2.55 10^6/ul (4.70-6.10); RED CELL DISTRIBUTION WIDTH 16.1 % (11.5-14.5); WHITE BLOOD COUNT 6.3 10^3/ul (4.8-10.8)
--- NOTE | 2017-03-20 17:23 | HP ---
Date/Time of Note Date/Time of Note DATE: 03/20/17 TIME: 17:11 Assessment/Plan VTE Prophylaxis VTE Prophylaxis Intervention: other Assessment/Plan Assessment/Plan 1. Progressive renal insuff with now ricky uremia and need for acute and chronic HD 2. Marked anemia, sec ckd and need to r.o. gi bleeding and underlying myelofibrosis 3. Depression related to acute illness 4. DM, control prior to this admit has been reasonable 5. Known Myelofibrosis HPI/ROS Admit Date/Time Admit Date/Time Mar 20, 2017 at 15:32 Hx of Present Illness 82 yo male admitted with inc weakness, fatigue, anorexia, worsening renal fx ROS Constitutional: chills Eyes: no complaints ENT: no complaints Respiratory: shortness of breath (mild with exertion without othop or pnd) Gastrointestinal: nausea (and reduced appetite without gi bleeding) Genitourinary: no complaints Psychological: other (very depressed) PMH/Family/Social Past Medical History Medical History: no pertinent history Past Surgical History 1. Known CAD, ventric arrythmia, ICD-defib placed 12/07, [place], CABS 1994, right cor stent 2010, most recent admit to [facility] 02/06 with a ischemic episode 2. HBP 3. DM 4. 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 Myelofibrosis 6. Hypothyroidism 7. 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 Prior appy, right ing hernia repair 9. Hyperlipidemia Social History Alcohol Use: occasionally Smoking Status: Former smoker Exam/Review of Systems Vital Signs Vitals Vital Signs Date Time Temp Pulse Resp B/P Pulse Ox O2 Delivery O2 Flow Rate FiO2 03/20/17 16:00 67 Exam Neck: jvd Respiratory: diminished breath sounds (few rales are present) Cardiovascular: regular rate and rhythm (/6 syst m without s3) Gastrointestinal: nl liver, spleen, non-tender, other (no inc liver or spleen) , soft Extremities: edema (trace) 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: other (left foot drop) Medications Medications Current Medications Dextrose (D5W) 1,000 ml @ 50 mls/hr Q20H IV ; Start 03/20/17 at 17:00 Ondansetron HCl (Zofran Inj) 4 mg Q6H PRN IV NAUSEA AND/OR VOMITING; Start at 17:00 Acetaminophen (Tylenol Tab) 650 mg Q6H PRN PO PAIN LEVEL 1-3 OR FEVER; Start at 17:00 Docusate Sodium (Colace) 100 mg Q12H PRN PO CONSTIPATION; Start 03/20/17 at 17: 00 Allopurinol (Zyloprim) 200 mg DAILY PO ; Start 03/21/17 at 09:00 Amlodipine Besylate (Norvasc) 5 mg DAILY PO ; Start 03/20/17 at 17:00 Atorvastatin Calcium (Lipitor) 20 mg QHS PO ; Start 03/20/17 at 21:00 Clopidogrel Bisulfate (plaVIX) 75 mg DAILY PO ; Start 03/21/17 at 09:00 Fenofibrate (Tricor) 145 mg DAILY PO ; Start 03/21/17 at 09:00 Levothyroxine Sodium (Synthroid) 50 mcg DAILY PO ; Start 03/21/17 at 09:00 Metoprolol Succinate (Toprol Xl) 50 mg BID PO ; Start 03/20/17 at 21:00 Isosorbide Dinitrate (Isordil) 20 mg BID PO ; Start 03/20/17 at 21:00; Status UNV Cyanocobalamin (Vitamin B12) 200 mcg DAILY PO ; Start 03/21/17 at 09:00; Status UNV Cholecalciferol (Vitamin D) 2,000 unit DAILY PO ; Start 03/21/17 at 09:00; Status UNV Insulin Detemir (Levemir) 10 unit DAILY@20 SC ; Start 03/20/17 at 20:00; Status UNV JULIANNE ESTRELLA MD Mar 20, 2017 17:23
[2017-03-20] MEDS ORDERED: GLUCOSE GEL 15 GRAM TUBE BUCCAL PRN (17:30)
[2017-03-20] MEDS ORDERED: GLUCAGON 1 MG INJ IM PRN (17:30)
[2017-03-20] MEDS ORDERED: GLUCOSE GEL 15 GRAM TUBE PO PRN ×2 (17:30)
[2017-03-20] MEDS ORDERED: DEXTROSE 50% 50 ML SYRINGE IV PRN ×2 (17:30)
[2017-03-20 17:33] LABS: INR 1.37; PROTIME 16.9 Sec (12.2-14.2); PT RATIO 1.3
[2017-03-20 17:34] LABS: IRON 432 ug/dl (35-150)
[2017-03-20 17:35] LABS: ALANINE AMINOTRANSFERASE 415 IU/L (13-69); ALBUMIN/GLOBULIN RATIO 1.92; ALKALINE PHOSPHATASE 27 IU/L (42-121); ANION GAP 24 (8-16); ASPARTATE AMINO TRANSFERASE 685 IU/L (15-46); BILIRUBIN,INDIRECT 0.4 mg/dl (0-1.1); BILIRUBIN,TOTAL 0.4 mg/dl (0.2-1.3); CALCIUM 10.1 mg/dl (8.4-10.2); CARBON DIOXIDE 22 mmol/L (21-31); CHLORIDE 95 mmol/L (97-110); CREATININE 4.65 mg/dl (0.61-1.24); GLUCOSE 210 mg/dl (70-220); POTASSIUM 4.2 mmol/L (3.5-5.1); SODIUM 137 mmol/L (135-144); TOTAL PROTEIN 7.6 g/dl (6.1-8.1)
[2017-03-20] MEDS: INSULIN ASPART [NOVOLOG] 3 ML PEN SC SCH (17:35)
[2017-03-20 17:43] LABS: TOTAL IRON BINDING CAPACITY 406 ug/dl (241-421)
[2017-03-20] MEDS ORDERED: HEPARIN 1000 UNITS/ML 10 ML INJ ONE (17:57)
[2017-03-20 18:01] LABS: BLOOD UREA NITROGEN 128 mg/dl (7-20)
[2017-03-20 18:42] LABS: LYMPHOCYTES # 0.4 10^3/ul (0.8-2.9); MONOCYTE # 0.5 10^3/ul (0.3-0.9); NEUTROPHIL # 5.4 10^3/ul (1.6-7.5)
[2017-03-20 19:49] LABS: FERRITIN > 10000.0 ng/ml (11.1-264.0)
--- NOTE | 2017-03-20 19:58 | RADRPT ---
PROCEDURE: PLACEMENT OF RIGHT INTERNAL JUGULAR VENOUS TEMPORARY DIALYSIS CATHETER . CLINICAL INDICATION: Renal failure. TECHNIQUE: Informed consent was obtained. The risks including bleeding and infection were explained to the pat ient. The patient understood and was willing to proceed. A procedural pause was performed. The abimael ortiz's name, date of , and procedure to be performed were verified. Limited sonography of the right neck was performed. Noted is a patent right internal jugular vein. The central line was inse rted with all elements of maximal sterile barrier technique. All of the following were used: head co vering, facial mask, sterile gown, sterile gloves, a large sterile sheet, hand hygiene, and 2% chlo rhexidine for cutaneous antisepsis. The right neck and anterior superior chest wall was prepped and draped in the usual sterile fashion. Using local anesthesia, sterile technique, and ultrasound guidance, a 20-gauge needle was advanced i nto the right internal jugular vein in the supraclavicular region. The 0.018 inch floppy tip guidew mic was advanced through the needle into the superior vena cava with fluoroscopic guidance. A 5-Karri nch sheath was advanced over the guidewire. The guidewire was removed and a 0.035 inch Amplatz wire was advanced into the superior vena cava, then the right atrium. Serial dilatation was performed t o 12 Estonian. The temporary dialysis catheter was then advanced over the guidewire such that the tip was placed in the right atrium. A 16 cm long, 11.5 [place]ian Mahurkar temporary dialysis catheter was used. Tip position was confirmed in the right atrium with fluoroscopy. The two ports were each fl ushed with 1.5 ml of 1:1000 heparin. The catheter was secured to the skin with 2-0 monofilament. The site was dressed. The patient tolerated the procedure well. COMPARISON: None. FINDINGS: Ultrasound images were recorded and stored in the patient's medical record. Final radiographic images demonstrate the tip of the catheter in the upper right atrium. There is a lso a left-sided permanent pacemaker and there are sternal wires and mediastinal clips. A total of 0.1 minutes of fluoroscopy time was used. The ultrasound images demonstrate the needle entering the internal jugular vein. IMPRESSION: 1. Satisfactory insertion of right internal jugular vein temporary dialysis catheter with ultrasoun d and fluoroscopic guidance. RPTAT: QQ .Ousmane Diallo MD, MD Date Time Electronically viewed and signed by .Ousmane Diallo MD, MD on 03/20/2017 19:57 .R/
[2017-03-20] MEDS ORDERED: INSULIN DETEMIR [LEVEMIR] 3ML CART SC SCH (20:00)
[2017-03-20] MEDS: METOPROLOL (XL) 50 MG TAB PO SCH (21:00)
[2017-03-20] MEDS ORDERED: ATORVASTATIN 20 MG TAB PO SCH (21:00)
[2017-03-20] MEDS: ISOSORBIDE DINITRATE 20 MG TAB PO SCH (21:00)
[2017-03-20] MEDS: JAKAFI 5 MG PO SCH (21:00)
[2017-03-20] MEDS: DEXTROSE 5% 1,000 ML IV SCH (21:01)
[2017-03-20] MEDS: [UNRECOGNIZED DRUG - REMARK] XX SCH (21:02)
[2017-03-20] MEDS: FISH OIL 1,000 MG CAP PO SCH (21:12)
[2017-03-20] MEDS ORDERED: NITROGLYCERIN (SL) 0.4 MG TAB SL PRN (22:30)
[2017-03-20] MEDS: INSULIN DETEMIR [LEVEMIR] 3ML CART SC SCH (22:43)
[2017-03-21] VITALS (49 sets, daily range): BP systolic 84–127; BP diastolic 49–81; PULSE 4–121; RESP 14–37
--- NOTE | 2017-03-21 00:51 | RADRPT ---
PROCEDURE: Portable chest x-ray. CLINICAL INDICATION: CHF. TECHNIQUE: Portable AP view of the chest. COMPARISON: 12/25/2016. FINDINGS: There are low lung volumes, limiting evaluation of the pulmonary vessels. There is mild bibasilar at electasis. . The patient is status post median sternotomy. The cardiac silhouette is enlarged. The re is a left chest cardiac pacemaker. There are aortic calcifications. There is a small right pleur al effusion. There is no pneumothorax. IMPRESSION: 1. Low lung volumes, limiting evaluation of the pulmonary vessels. Pulmonary edema is not excluded . 2. Small right pleural effusion. 3. Enlarged cardiac silhouette and aortic atherosclerosis. RPTAT: HTAR .Rob Mitchell MD, MD Date Time Electronically viewed and signed by .Rob Mitchell MD, on 03/21/2017 00:50 .R/
[2017-03-21] MEDS: [UNRECOGNIZED DRUG - REMARK] XX SCH (02:00)
[2017-03-21 05:56] LABS: AADO2 Arterial 106.6 mmHg (7.0-24.0); Allen Test ACCEPTAB; Arterial Base Excess -2.2 mmol/L (-3.0-3); Arterial COHb 0 % (0.0-3.0); Arterial Fraction of Oxyhgb 95.3 % (93.0-99.0); Arterial MetHb 0.2 % (0.0-1.5); Arterial Total Hemglobin 12.3 g/dl (12.0-18.0); MODE NASAL CANNULA
[2017-03-21 06:01] LABS: ADD SCAN DIFF NO
[2017-03-21 06:14] LABS: ABNORMAL IP MESSAGE 1; EOSINOPHILS % 0.2 % (0.0-7.0); HEMATOCRIT 34.5 % (42.0-52.0); HEMOGLOBIN 11.5 g/dl (14.0-18.0); LYMPHOCYTES # 0.1 10^3/ul (0.8-2.9); LYMPHOCYTES % 1.5 % (15.0-51.0); MEAN CORPUSCULAR HEMOGLOBIN 28.6 pg (29.0-33.0); MEAN CORPUSCULAR HGB CONC 33.3 g/dl (32.0-37.0); MEAN CORPUSCULAR VOLUME 85.8 fl (82.0-101.0); MEAN PLATELET VOLUME 13.2 fl (7.4-10.4); MONOCYTE # 0.5 10^3/ul (0.3-0.9); MONOCYTES % 7.7 % (0.0-11.0); NEUTROPHIL # 5.8 10^3/ul (1.6-7.5); NEUTROPHILS % 89.5 % (39.0-77.0); NUCLEATED RED BLOOD CELLS% 0.5 /100WBC (0.0-0.0); PLATELET COUNT 84 10^3/UL (140-415); RED BLOOD COUNT 4.02 10^6/ul (4.70-6.10); RED CELL DISTRIBUTION WIDTH 15.7 % (11.5-14.5); WHITE BLOOD COUNT 6.5 10^3/ul (4.8-10.8)
[2017-03-21] MEDS: PANTOPRAZOLE (EC) 40 MG TAB PO SCH (06:38)
[2017-03-21] MEDS: DEXTROSE 5% 1,000 ML IV SCH (06:38)
[2017-03-21 06:45] LABS: CREATININE 3.64 mg/dl (0.61-1.24); PHOSPHORUS 5.2 mg/dl (2.5-4.9); POTASSIUM 3.4 mmol/L (3.5-5.1)
--- NOTE | 2017-03-21 07:44 | RADRPT ---
PROCEDURE: US Abdomen and Retroperitoneum. CLINICAL INDICATION: Abnormal liver tests. TECHNIQUE: Multiple real-time longitudinal and transverse images were acquired of the patient's ab domen and retroperitoneum utilizing a curved array transducer. COMPARISON: CT abdomen and pelvis, 12/20/2016. FINDINGS: Liver is normal in size and echogenicity. No focal liver mass. Portal vein demonstrates hepatopetal flow. Gallbladder demonstrate multiple gallstones. There is no gallbladder wall thickening or pericholecy stic fluid. The common bile duct is poorly visualized. Pancreas is not visualized. Spleen is normal in size. Kidneys demonstrate diffuse cortical thinning. There is a 4 cm cyst in the lower pole, right kidney . No hydronephrosis bilaterally. No ascites. There are bilateral pleural effusions. Proximal aorta and IVC are unremarkable. MEASUREMENTS: Liver: 16.0 cm Right Kidney: 10.1 cm Left Kidney: 10.4 cm Spleen: 12.5 cm IMPRESSION: Gallbladder is impacted with numerous stones without gallbladder wall thickening or inflammation. B iliary system is nondilated. Right renal cyst. Small bilateral pleural effusions. RPTAT: EE .Glenroy Ramos MD, MD Date Time Electronically viewed and signed by .Glenroy Ramos MD, on 03/21/2017 07:49 .C/
--- NOTE | 2017-03-21 07:48 | PN ---
Date/Time of Note Date/Time of Note DATE: 03/21/17 TIME: 07:44 Assessment/Plan VTE Prophylaxis VTE Prophylaxis Intervention: other Lines/Catheters IV Catheter Type (from Nrs): Saline Lock Urinary Cath still in place: Yes Reason Cath still needed: urinary retention Assessment/Plan Assessment/Plan 1. Acute and chronic renal failure, to have hd today. 2. CAD with inc trop, await cards eval, i held dig for now, await level, ? resume, ? cath again, chf has improved, sq heparin started 3. Anemia resolved after 4 units of cells, will ask heme to follow up 4. Somnolent, CT brain ordered and nh3 level, blood and urine cult ordered 5. Will leave [facility] 1-2 d 6, Abnl liver tests prob sec passive liver congestion, ultz ordered, will hold statin for now. Subjective 24 Hr Interval Summary Subjective hx not possible: other (lethargic) Respiratory: No shortness of breath Cardiovascular: No chest pain Gastrointestinal: no complaints Genitourinary: other (robles in place) Neurologic: No focal-weakness Exam/Review of Systems Vital Signs Vitals Vital Signs Date Time Temp Pulse Resp B/P Pulse Ox O2 Delivery O2 Flow Rate FiO2 03/21/17 06:00 69 23 127/70 100 Nasal Cannula 03/21/17 04:10 4.0 03/21/17 04:00 98.7 Intake and Output 03/20/17 03/20/17 03/21/17 15:00 23:00 07:00 Intake Total 1500 ml Output Total 500 ml 4690 ml Balance -500 ml -3190 ml Exam Neck: No jvd Respiratory: clear to auscultation, diminished breath sounds Cardiovascular: regular rate and rhythm, No S3, No S4 Extremities: edema (trace sacral) Results Result Diagram: 03/21/17 0518 03/21/17 0518 Results 24 hrs Laboratory Tests Test 03/20/17 16:55 03/20/17 17:00 03/20/17 20:44 03/20/17 21:09 Bedside Glucose 232 H 202 White Blood Count 6.3 # Red Blood Count 2.55 #L Hemoglobin 7.5 L Hematocrit 22.4 #L Mean Corpuscular Volume 87.8 Mean Corpuscular Hemoglobin 29.4 Mean Corpuscular Hemoglobin Concent 33.5 Red Cell Distribution Width 16.1 H Platelet Count 105 #L Mean Platelet Volume 12.0 H Neutrophils % 86.0 H Lymphocytes % 6.0 L Monocytes % 8.0 Neutrophils # 5.4 Lymphocytes # 0.4 L Monocytes # 0.5 Prothrombin Time 16.9 H Prothrombin Time Ratio 1.3 INR International Normalized Ratio 1.37 Activated Partial Thromboplast Time 31.0 Sodium Level 137 Potassium Level 4.2 Chloride Level 95 L Carbon Dioxide Level 22 Anion Gap 24 H Blood Urea Nitrogen 128 H Creatinine 4.65 H Glucose Level 210 Calcium Level 10.1 Iron Level 432 H Total Iron Binding Capacity 406 Percent Iron Saturation 106 H Ferritin > 13968.0 H Total Bilirubin 0.4 Direct Bilirubin 0.00 Indirect Bilirubin 0.4 Aspartate Amino Transf (AST/SGOT) 685 H Alanine Aminotransferase (ALT/SGPT) 415 H Alkaline Phosphatase 27 L Troponin I 2.740 *H 3.290 *H Total Protein 7.6 Albumin 5.0 H Globulin 2.60 Albumin/Globulin Ratio 1.92 Test 03/20/17 22:39 03/21/17 05:00 03/21/17 05:11 03/21/17 05:18 Bedside Glucose 160 Blood Gas Specimen Source Blood arterial Arterial Blood Date Drawn 03/21/2017 5:45:46 AM Arterial Blood pH (Temp corrected) 7.405 Arterial Blood pCO2 (Temp correct) 35.9 Arterial Blood pO2 (Temp corrected) 86.8 Arterial Blood HCO3 22.0 Arterial Blood Base Excess -2.2 Arterial Blood Oxygen Saturation 95.5 Oniel Test ACCEPTAB Arterial Blood Gas Puncture Site Right Radial Arterial Blood Carboxyhemoglobin 0 Arterial Blood Methemoglobin 0.2 Blood Gas A-a O2 Differential 106.6 H Oxyhemoglobin Percent 95.3 Total Hemoglobin 12.3 Blood Gas Temperature 37.0 Blood Gas Modality NASAL CANNULA FiO2 33.0 Blood Gas Notified Whom UP Blood Gas Notified Time 03/21/2017 5:56:38 AM Lab Scanned Report BLOOD TRANSFUSION White Blood Count 6.5 Red Blood Count 4.02 #L Hemoglobin 11.5 #L Hematocrit 34.5 #L Mean Corpuscular Volume 85.8 Mean Corpuscular Hemoglobin 28.6 L Mean Corpuscular Hemoglobin Concent 33.3 Red Cell Distribution Width 15.7 H Platelet Count 84 L Mean Platelet Volume 13.2 H Neutrophils % 89.5 H Lymphocytes % 1.5 L Monocytes % 7.7 Eosinophils % 0.2 Basophils % 0.0 Nucleated Red Blood Cells % 0.5 H Neutrophils # 5.8 Lymphocytes # 0.1 L Monocytes # 0.5 Eosinophils # 0.0 Basophils # 0.0 Nucleated Red Blood Cells # 0.0 Sodium Level 139 Potassium Level 3.4 L Chloride Level 98 Carbon Dioxide Level 23 Anion Gap 21 H Blood Urea Nitrogen 86 #H Creatinine 3.64 #H Glucose Level 155 Calcium Level 10.0 Phosphorus Level 5.2 H Vitamin B12 Level Pending Thyroid Stimulating Hormone (TSH) 3.520 Free Thyroxine Index 2.83 Thyroxine (T4) 6.9 Triiodothyronine (T3) Uptake 41.0 H Test 03/21/17 06:40 Bedside Glucose 155 Medications Medications Current Medications Dextrose (D5W) 1,000 ml @ 50 mls/hr Q20H IV Last administered on 03/21/17 06: 38; Admin Dose 50 MLS/HR; Start 03/20/17 at 17:00 Ondansetron HCl (Zofran Inj) 4 mg Q6H PRN IV NAUSEA AND/OR VOMITING; Start at 17:00 Acetaminophen (Tylenol Tab) 650 mg Q6H PRN PO PAIN LEVEL 1-3 OR FEVER; Start at 17:00 Docusate Sodium (Colace) 100 mg Q12H PRN PO CONSTIPATION; Start 03/20/17 at 17: 00 Allopurinol (Zyloprim) 200 mg DAILY PO ; Start 03/21/17 at 09:00 Amlodipine Besylate (Norvasc) 5 mg DAILY PO ; Start 03/20/17 at 17:00 Atorvastatin Calcium (Lipitor) 20 mg QHS PO Last administered on 03/20/17 21: 12; Admin Dose 20 MG; Start 03/20/17 at 21:00 Clopidogrel Bisulfate (plaVIX) 75 mg DAILY PO ; Start 03/21/17 at 09:00 Fenofibrate (Tricor) 145 mg DAILY PO ; Start 03/21/17 at 09:00 Levothyroxine Sodium (Synthroid) 50 mcg DAILY PO ; Start 03/21/17 at 09:00 Metoprolol Succinate (Toprol Xl) 50 mg BID PO ; Start 03/20/17 at 21:00 Isosorbide Dinitrate (Isordil) 20 mg BID PO ; Start 03/20/17 at 21:00 Cyanocobalamin (Vitamin B12) 200 mcg DAILY PO ; Start 03/21/17 at 09:00 Cholecalciferol (Vitamin D) 2,000 unit DAILY PO ; Start 03/21/17 at 09:00 Pantoprazole (Protonix Tab) 40 mg DAILY@06 PO Last administered on 03/21/17 06 :38; Admin Dose 40 MG; Start 03/21/17 at 06:00 Fish Oil (Fish Oil) 1,000 mg BID PO Last administered on 03/20/17 21:12; Admin Dose 1,000 MG; Start 03/20/17 at 21:00 Miscellaneous Information 1 ea NOTE XX ; Start 03/20/17 at 17:30 Glucose (Glutose) 15 gm Q15M PRN PO DECREASED GLUCOSE; Start 03/20/17 at 17:30 Glucose (Glutose) 22.5 gm Q15M PRN PO DECREASED GLUCOSE; Start 03/20/17 at 17: 30 Dextrose (D50w Syringe) 25 ml Q15M PRN IV DECREASED GLUCOSE; Start 03/20/17 at 17:30 Dextrose (D50w Syringe) 50 ml Q15M PRN IV DECREASED GLUCOSE; Start 03/20/17 at 17:30 Glucagon (Glucagen) 1 mg Q15M PRN IM DECREASED GLUCOSE; Start 03/20/17 at 17:30 Glucose (Glutose) 15 gm Q15M PRN BUCCAL DECREASED GLUCOSE; Start 03/20/17 at 17 :30 Patient Own Medication 1 ea BID PO ; Start 03/20/17 at 21:00; Status UNV Miscellaneous Information (*Order Clarification Bulletin) SEND PT'S OWN MED WILMER... Q8H XX ; Start 03/20/17 at 18:00 Insulin Detemir (Levemir) 14 unit DAILY@20 SC Last administered on 03/20/17 22 :43; Admin Dose 14 UNIT; Start 03/20/17 at 22:06 JULIANNE ESTRELLA MD Mar 21, 2017 07:48
[2017-03-21] MEDS ORDERED: HEPARIN 5,000 UNIT/0.5 ML VIAL SC SCH (08:00)
[2017-03-21] MEDS: INSULIN ASPART [NOVOLOG] 3 ML PEN SC SCH ×4 (08:27→20:49)
--- NOTE | 2017-03-21 08:33 | RADRPT ---
PROCEDURE: US bilateral lower extremity veins. CLINICAL INDICATION: Bilateral leg pain and swelling. TECHNIQUE: Multiple longitudinal and transverse images of the bilateral lower extremity veins were obtained with lyons scale and color Doppler imaging. The common femoral vein, femoral vein, and popl iteal vein were evaluated. 2D grayscale measurements with compression sonography, color Doppler, and pulsed Doppler with augmentation. COMPARISON: No prior studies are available for comparison. FINDINGS: The bilateral common femoral, femoral and popliteal veins are normally compressible throughout. Col or flow demonstrates normal filling of the vessels. Normal waveforms are visualized and there is no rmal response to augmentation. IMPRESSION: 1. No evidence of deep vein thrombosis involving either lower extremity. RPTAT: QQ .Ousmane Diallo MD, MD Date Time Electronically viewed and signed by .Ousmane Diallo MD, on 03/21/2017 08:32 .R/
--- NOTE | 2017-03-21 08:39 | CONS ---
Date/Time of Note Date/Time of Note DATE: 03/21/17 TIME: 08:27 Assessment/Plan Assessment/Plan Chief Complaint/Hosp Course Impression: - NSTEMI- recurrent, has occluded LM with un revascularized area of distal LCx and Proximal LAD. Also with SVG graft to OM1 with severe stenosis, likely related to compression from surgical clips. if no e/o of bleeding, can consider high risk PCI but likely will require HD support during possible intervention given severe systolic heart failure - CKD- iHD initiated via R IJ cathter for fluid mgmt - Acute on chronic systolic heart failure- likley related to ESRD and fluid overload, fluid mgmt with iHD - s/p ICD normal fxn, h/o VT/VF - Myleofibrosis with anemia s/p tranfusion Recommendations: - add asa 81mg daily - cont plavix 75 mg daily - if no e/o of bleeding, start heparin gtt at ACS protocol - trend troponin - cont metoprolol - cont nitrate and titrate - case d/w patient/family via phone/Dr. Estrella - plan for attmpet at PCI to SVG-OM1 graft here at [facility], if unsuccessful may consider higher risk PCI with Impella HD support given severe ICM at [facility]. only time available for PCI tomorrow is 430 pm, npo after 11am (ok to eat early lunch) cont heparin gtt, stop 1 hr prior to procedure. cont asa/plavix Problems: Consultation Date/Type/Reason Admit Date/Time Mar 20, 2017 at 15:32 Date of Consultation: Mar 21, 2017 Type of Consultation: Cardiology Reason for Consultation Elevated Troponin Referring Provider: JULIANNE ESTRELLA MD Hx of Present Illness 81 y.o. man with h/o of CAD s/p CABG 1994, HTN, HLD, Severe ICM, VT/VF s/p ICD, ESRD. Pt now presenting with progressive renal dysfunction, found to be in pulm edema with acute on chornic systolic heart failure. pt also with NSTEMI with uptrending troponin. pt had R iHD cath placed last night, tolerated dialysis, denies any chest pain. has mild dyspnea improved. no orthopnea, pnd, edema. no chest pain/pressure/shocks. Eyes: no complaints ENT: no complaints Respiratory: shortness of breath Cardiovascular: No chest pain Gastrointestinal: no complaints Genitourinary: no complaints, other (robles in place) Neurologic: no complaints, No focal-weakness Endocrine: no complaints Lymphatic: no complaints Psychological: nl mood/affect, no complaints, other (very depressed) Immunologic: no complaints Past Medical History 1. Known CAD, ventric arrythmia, ICD-defib placed 12/07, [place], CABS 1994, right cor stent 2010, most recent admit to [place] 02/06 with a ischemic episode 2. HBP 3. DM 4. 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 Myelofibrosis 6. Hypothyroidism 7. 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 Prior appy, right ing hernia repair 9. Hyperlipidemia Past Surgical History CABG Family History Significant Family History: other (no high risk cad) Social History Alcohol Use: occasionally Smoking Status: Former smoker Drug Use: none Exam/Review of Systems Vital Signs Vitals Vital Signs Date Time Temp Pulse Resp B/P Pulse Ox O2 Delivery O2 Flow Rate FiO2 03/21/17 06:00 69 23 127/70 100 Nasal Cannula 03/21/17 04:10 4.0 03/21/17 04:00 98.7 Intake and Output 03/20/17 03/20/17 03/21/17 15:00 23:00 07:00 Intake Total 1500 ml Output Total 500 ml 4690 ml Balance -500 ml -3190 ml Exam Constitutional: alert, oriented, other (fatigued) Psych: no complaints Head: atraumatic, normocephalic Eyes: EOMI, nl conjunctiva, nl lids ENMT: mucosa pink and moist Neck: non-tender, supple, No jvd Respiratory: other (mild crackles in lateral bases) Cardiovascular: other (RRR, nl s1s2, ii/vi systolic lLSB) Gastrointestinal: non-tender, soft Musculoskeletal: nl extremities to inspection Extremities: normal pulses 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: [employer] II-XII intact, nl mental status Results Result Diagram: 03/21/1751703/21/1718 Results 24 hrs Laboratory Tests Test 03/20/17 16:55 03/20/17 17:00 03/20/17 20:44 03/20/17 21:09 Bedside Glucose 232 H 202 White Blood Count 6.3 # Red Blood Count 2.55 #L Hemoglobin 7.5 L Hematocrit 22.4 #L Mean Corpuscular Volume 87.8 Mean Corpuscular Hemoglobin 29.4 Mean Corpuscular Hemoglobin Concent 33.5 Red Cell Distribution Width 16.1 H Platelet Count 105 #L Mean Platelet Volume 12.0 H Neutrophils % 86.0 H Lymphocytes % 6.0 L Monocytes % 8.0 Neutrophils # 5.4 Lymphocytes # 0.4 L Monocytes # 0.5 Prothrombin Time 16.9 H Prothrombin Time Ratio 1.3 INR International Normalized Ratio 1.37 Activated Partial Thromboplast Time 31.0 Sodium Level 137 Potassium Level 4.2 Chloride Level 95 L Carbon Dioxide Level 22 Anion Gap 24 H Blood Urea Nitrogen 128 H Creatinine 4.65 H Glucose Level 210 Calcium Level 10.1 Iron Level 432 H Total Iron Binding Capacity 406 Percent Iron Saturation 106 H Ferritin > 85423.0 H Total Bilirubin 0.4 Direct Bilirubin 0.00 Indirect Bilirubin 0.4 Aspartate Amino Transf (AST/SGOT) 685 H Alanine Aminotransferase (ALT/SGPT) 415 H Alkaline Phosphatase 27 L Troponin I 2.740 *H 3.290 *H Total Protein 7.6 Albumin 5.0 H Globulin 2.60 Albumin/Globulin Ratio 1.92 Test 03/20/17 22:39 03/21/17 05:00 03/21/17 05:11 03/21/17 05:18 Bedside Glucose 160 Blood Gas Specimen Source Blood arterial Arterial Blood Date Drawn 03/21/2017 5:45:46 AM Arterial Blood pH (Temp corrected) 7.405 Arterial Blood pCO2 (Temp correct) 35.9 Arterial Blood pO2 (Temp corrected) 86.8 Arterial Blood HCO3 22.0 Arterial Blood Base Excess -2.2 Arterial Blood Oxygen Saturation 95.5 Oniel Test ACCEPTAB Arterial Blood Gas Puncture Site Right Radial Arterial Blood Carboxyhemoglobin 0 Arterial Blood Methemoglobin 0.2 Blood Gas A-a O2 Differential 106.6 H Oxyhemoglobin Percent 95.3 Total Hemoglobin 12.3 Blood Gas Temperature 37.0 Blood Gas Modality NASAL CANNULA FiO2 33.0 Blood Gas Notified Whom UP Blood Gas Notified Time 03/21/2017 5:56:38 AM Lab Scanned Report BLOOD TRANSFUSION White Blood Count 6.5 Red Blood Count 4.02 #L Hemoglobin 11.5 #L Hematocrit 34.5 #L Mean Corpuscular Volume 85.8 Mean Corpuscular Hemoglobin 28.6 L Mean Corpuscular Hemoglobin Concent 33.3 Red Cell Distribution Width 15.7 H Platelet Count 84 L Mean Platelet Volume 13.2 H Neutrophils % 89.5 H Lymphocytes % 1.5 L Monocytes % 7.7 Eosinophils % 0.2 Basophils % 0.0 Nucleated Red Blood Cells % 0.5 H Neutrophils # 5.8 Lymphocytes # 0.1 L Monocytes # 0.5 Eosinophils # 0.0 Basophils # 0.0 Nucleated Red Blood Cells # 0.0 Sodium Level 139 Potassium Level 3.4 L Chloride Level 98 Carbon Dioxide Level 23 Anion Gap 21 H Blood Urea Nitrogen 86 #H Creatinine 3.64 #H Glucose Level 155 Calcium Level 10.0 Phosphorus Level 5.2 H Vitamin B12 Level > 1000 H Thyroid Stimulating Hormone (TSH) 3.520 Free Thyroxine Index 2.83 Thyroxine (T4) 6.9 Triiodothyronine (T3) Uptake 41.0 H Test 03/21/17 06:40 Bedside Glucose 155 Medications Medications Current Medications Dextrose (D5W) 1,000 ml @ 50 mls/hr Q20H IV Last administered on 03/21/17t 06: 38; Admin Dose 50 MLS/HR; Start 03/20/17 at 17:00 Ondansetron HCl (Zofran Inj) 4 mg Q6H PRN IV NAUSEA AND/OR VOMITING; Start at 17:00 Acetaminophen (Tylenol Tab) 650 mg Q6H PRN PO PAIN LEVEL 1-3 OR FEVER; Start at 17:00 Docusate Sodium (Colace) 100 mg Q12H PRN PO CONSTIPATION; Start 03/20/17 at 17: 00 Allopurinol (Zyloprim) 200 mg DAILY PO ; Start 03/21/17 at 09:00 Amlodipine Besylate (Norvasc) 5 mg DAILY PO ; Start 03/20/17 at 17:00 Clopidogrel Bisulfate (plaVIX) 75 mg DAILY PO ; Start 03/21/17 at 09:00 Fenofibrate (Tricor) 145 mg DAILY PO ; Start 03/21/17 at 09:00 Levothyroxine Sodium (Synthroid) 50 mcg DAILY PO ; Start 03/21/17 at 09:00 Metoprolol Succinate (Toprol Xl) 50 mg BID PO ; Start 03/20/17 at 21:00 Isosorbide Dinitrate (Isordil) 20 mg BID PO ; Start 03/20/17 at 21:00 Cyanocobalamin (Vitamin B12) 200 mcg DAILY PO ; Start 03/21/17 at 09:00 Cholecalciferol (Vitamin D) 2,000 unit DAILY PO ; Start 03/21/17 at 09:00 Pantoprazole (Protonix Tab) 40 mg DAILY@06 PO Last administered on 03/21/17 06 :38; Admin Dose 40 MG; Start 03/21/17 at 06:00 Fish Oil (Fish Oil) 1,000 mg BID PO Last administered on 03/20/17 21:12; Admin Dose 1,000 MG; Start 03/20/17 at 21:00 Miscellaneous Information 1 ea NOTE XX ; Start 03/20/17 at 17:30 Glucose (Glutose) 15 gm Q15M PRN PO DECREASED GLUCOSE; Start 03/20/17 at 17:30 Glucose (Glutose) 22.5 gm Q15M PRN PO DECREASED GLUCOSE; Start 03/20/17 at 17: 30 Dextrose (D50w Syringe) 25 ml Q15M PRN IV DECREASED GLUCOSE; Start 03/20/17 at 17:30 Dextrose (D50w Syringe) 50 ml Q15M PRN IV DECREASED GLUCOSE; Start 03/20/17 at 17:30 Glucagon (Glucagen) 1 mg Q15M PRN IM DECREASED GLUCOSE; Start 03/20/17 at 17:30 Glucose (Glutose) 15 gm Q15M PRN BUCCAL DECREASED GLUCOSE; Start 03/20/17 at 17 :30 Patient Own Medication 1 ea BID PO ; Start 03/20/17 at 21:00; Status UNV Miscellaneous Information (*Order Clarification Bulletin) SEND PT'S OWN MED JAKIFI... Q8H XX ; Start 03/20/17 at 18:00 Insulin Detemir (Levemir) 14 unit DAILY@20 SC Last administered on 03/20/17 22 :43; Admin Dose 14 UNIT; Start 03/20/17 at 22:06 Heparin Sodium (Porcine) (Heparin (5000 Units/0.5 ml)) 5,000 unit Q8 SC ; Start 03/21/17 at 08:00 Procedures Procedures cxr images reviewed: mild pulm edema, pleural effusion ekg: sinus, IVCD, lateral twi/depression more pronounced on am ekg SAMY ROSALES Mar 21, 2017 08:37
[2017-03-21] MEDS: CLOPIDOGREL 75 MG TAB PO SCH (08:50)
[2017-03-21] MEDS: ISOSORBIDE DINITRATE 20 MG TAB PO SCH ×2 (08:52→20:45)
[2017-03-21] MEDS: METOPROLOL (XL) 50 MG TAB PO SCH ×2 (08:55→20:44)
[2017-03-21] MEDS: AMLODIPINE 5 MG TAB PO SCH (08:55)
[2017-03-21] MEDS: FISH OIL 1,000 MG CAP PO SCH ×2 (08:56→20:45)
[2017-03-21] MEDS: CYANOCOBALAMIN 100 MCG TAB PO SCH (08:57)
[2017-03-21] MEDS: ALLOPURINOL 100 MG TAB PO SCH (08:57)
[2017-03-21] MEDS: FENOFIBRATE 145 MG TAB PO SCH (08:57)
[2017-03-21] MEDS: LEVOTHYROXINE 50 MCG TAB PO SCH (08:57)
[2017-03-21] MEDS: CHOLECALCIFEROL 2,000 UNIT CAP PO SCH (08:57)
[2017-03-21] MEDS: JAKAFI 5 MG PO SCH ×2 (09:00→18:24)
--- NOTE | 2017-03-21 10:36 | RADRPT ---
Vent Rate: 69 bpm RR Interval: 0 msec NV Interval: 192 msec QRS Duration: 188 msec QT Interval: 488 msec QTC Interval: 522 msec P-R-T [place]: 41 - -42 - 155 degrees Normal sinus rhythm Left axis deviation Nonspecific intraventricular block Abnormal ECG Electronically Signed By: Elder Cavazos [id number]
--- NOTE | 2017-03-21 10:39 | RADRPT ---
Vent Rate: 66 bpm RR Interval: 0 msec IA Interval: 164 msec QRS Duration: 184 msec QT Interval: 502 msec QTC Interval: 526 msec P-R-T [place]: 17 - -50 - 0 degrees Normal sinus rhythm Left axis deviation Left ventricular hypertrophy with QRS widening and repolarization abnormality Abnormal ECG Electronically Signed By: Elder Cavazos [id number]
--- NOTE | 2017-03-21 11:04 | RADRPT ---
PROCEDURE: Ultrasound guidance for placement of needle in right internal jugular vein. CLINICAL INDICATION: Venous access. TECHNIQUE: Prior to the procedure, informed consent was obtained. Risks including bleeding, infection, and pneu mothorax were explained to the patient. The patient understood and was willing to proceed. A procedu ral pause was performed. The patient's name, date of , and procedure to be performed were verif ied. The central line was inserted with all elements of maximal sterile barrier technique. All of th e following were used: head covering, facial mask, sterile gown, sterile gloves, a large sterile she et, hand hygiene, and 2% chlorhexidine for cutaneous antisepsis. The right neck and anterior/super ior chest wall was prepped and draped in usual sterile fashion. Limited sonography of the right neck was then performed. Noted is a patent right internal jugular ve in. Ultrasound images were recorded and stored in the patient's medical record. Following the local injection of Xylocaine, the right internal jugular vein was punctured under sono graphic guidance with a 20-gauge needle through which a 0.018 inch floppy tip guidewire was advanced into the superior vena cava. The patient tolerated the procedure well. The remainder of the proce dure was performed and dictated under separate cover. COMPARISON: None. FINDINGS: The ultrasound images demonstrate a patent right internal jugular vein. The subsequent images demon strate the needle entering the right internal jugular vein. IMPRESSION: 1. Ultrasound guidance for a needle placement in right internal jugular vein. RPTAT: QQ .Ousmane Diallo MD, Date Time Electronically viewed and signed by .Ousmane Diallo MD, on 03/21/2017 11:03 .R/
[2017-03-21 11:36] LABS: ALBUMIN 5.2 g/dl (3.3-4.9); TOTAL PROTEIN 7.5 g/dl (6.1-8.1)
--- NOTE | 2017-03-21 11:45 | RADRPT ---
PROCEDURE: CT Brain without contrast. CLINICAL INDICATION: Altered mental status. TECHNIQUE: A CT of the brain was performed on a multidetector CT scanner utilizing axial sections from the skull base through the vertex without contrast. Images were reviewed on a high-resolution [employer] workstation. Exam CTDI = 45.01 mGy and the DLP = 720.23 mGy-cm. One or the following dose reduction techniques were used: -Automated exposure control. -Adjustment of the mA and/or KV according to patient's size. -Use of iterative reconstruction technique COMPARISON: None available FINDINGS: There is diffuse cerebral and cerebellar atrophy is present. There is proportionate dilatation of t he ventricular system and sulci in a symmetric fashion. There is prominence of the extraaxial spaces secondary to atrophy. There is no evidence of intracranial hemorrhage, mass effect or midline shift . No abnormal intra-axial or extra-axial fluid collections are seen. The density of the brain is n ormal and the lyons/white matter differentiation is well preserved. There are [id number] diffuse deep white matter microangiopathic ischemic change is seen. There are tiny remote lacunar i nfarctions in the basal ganglia/caudate nuclei bilaterally. The osseous structures and visualized p aranasal sinuses are unremarkable. Vascular calcifications are identified. IMPRESSION: 1. No evidence of acute intracranial pathology. 2. Age-related volume loss and small vessel ischemic changes. 3. 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 3. Intracranial atherosclerosis. RPTAT: [facility] Physician Kar Date Time Electronically viewed and signed by Physician Kar on 03/21/2017 11:44 /
[2017-03-21] MEDS ORDERED: [UNRECOGNIZED DRUG - REMARK] XX SCH (12:30)
[2017-03-21] MEDS ORDERED: HEPARIN 25000 UNITS/250 ML 250 ML IV SCH (12:30)
[2017-03-21] MEDS ORDERED: HEPARIN 1000 UNITS/ML 10 ML INJ IV ONE (12:30)
[2017-03-21 13:31] LABS: INR 1.2; PROTIME 15.3 Sec (12.2-14.2); PT RATIO 1.2
[2017-03-21 13:32] LABS: PARTIAL THROMBOPLASTIN TIME 34.3 Sec (25.0-35.0)
[2017-03-21 14:15] LABS: ABNORMAL IP MESSAGE 1; BASOPHILS % 0.1 % (0.0-2.0); EOSINOPHILS % 0.4 % (0.0-7.0); HEMATOCRIT 30.4 % (42.0-52.0); HEMOGLOBIN 10.6 g/dl (14.0-18.0); LYMPHOCYTES # 0.2 10^3/ul (0.8-2.9); LYMPHOCYTES % 2.6 % (15.0-51.0); MEAN CORPUSCULAR HEMOGLOBIN 29.4 pg (29.0-33.0); MEAN CORPUSCULAR HGB CONC 34.9 g/dl (32.0-37.0); MEAN CORPUSCULAR VOLUME 84.4 fl (82.0-101.0); MEAN PLATELET VOLUME 13.3 fl (7.4-10.4); MONOCYTE # 0.4 10^3/ul (0.3-0.9); MONOCYTES % 5.9 % (0.0-11.0); NEUTROPHIL # 6.3 10^3/ul (1.6-7.5); NUCLEATED RED BLOOD CELLS% 0.3 /100WBC (0.0-0.0); RED CELL DISTRIBUTION WIDTH 16.1 % (11.5-14.5)
[2017-03-21 14:19] LABS: PLATELET COUNT 90 10^3/UL (140-415)
[2017-03-21 14:20] LABS: ADD SCAN DIFF NO
[2017-03-21] MEDS: ASPIRIN 81 MG TAB PO SCH (16:30)
--- NOTE | 2017-03-21 19:32 | CONS ---
Date/Time of Note Date/Time of Note DATE: 03/21/17 TIME: 19:20 Assessment/Plan Assessment/Plan Problems: (1) Type 2 diabetes mellitus without complications Status: Chronic Comment: Previously w/ high insulin requirement but of late pt. in weight based doses. Last night gave a little less detemir than pt. normally receives. Likewise will lower dose of mealtime insulin slightly. Pt. will be on levemir 14 qhs and Novolog 6 qac. Will titrate these doses up or down as need be to maintain pt. between 100 and 180 mg/dL. Will follow with you. Qualifiers: Qualified Code: E11.9 - Type 2 diabetes mellitus without complication, with long-term current use of insulin Consultation Date/Type/Reason Admit Date/Time Mar 20, 2017 at 15:32 Date of Consultation: Mar 21, 2017 Type of Consultation: Endocrinology Reason for Consultation T2DM management Referring Provider: JULIANNE ESTRELLA MD Hx of Present Illness Pt. w/ h/o T2DM, HTN, hyperlipidemia, CKD stage 4-5. CAD w/ h/o CABG, myelofibrosis, hypothyroidism, s/p recent sudden cardiac arrest in [facility] until the last week when he was having increasing difficulty sleeping at night due to SOB. This was progressively worsening along w/ weakness, fatigue, and anorexia. Pt. had labs done by PMD showing ricky uremia. Admitted to start HD. This was initiated yesterday and pt. improved today. Possible CAD recurrence. To have L heart cath tomorrow. Constitutional: improved, requiring O2 Eyes: no complaints ENT: no complaints Respiratory: shortness of breath Cardiovascular: no complaints, No chest pain Gastrointestinal: decreased appetite Genitourinary: no complaints, other (robles in place) Musculoskeletal: no complaints Neurologic: no complaints, No focal-weakness Psychological: no complaints Past Medical History Medical History: congestive heart failure, coronary artery disease, diabetes, high cholesterol, hypertension, hypothyroid, renal disease, other (myelofibrosis , kidney stones, spinal stenosis, SVT, deformity of lower leg, gout, SBO) Past Surgical History Past Surgical Hx: angioplasty, appendectomy, coronary bypass surgery, other ( spinal surgery) Family History Significant Family History: heart disease (father), diabetes (brother), other ( anemia) Social History [place], in [place] 45 y, [employer] vet, served in [place], has BA in electrical engineering, 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, , 2 children Alcohol Use: occasionally Smoking Status: Former smoker (1.5 ppd x 15 y) Drug Use: none Exam/Review of Systems Vital Signs Vitals VS - Last 72 Hours, by Label Date Time Temp Pulse Resp B/P Pulse Ox O2 Delivery O2 Flow Rate FiO2 03/21/17 18:00 120 37 105/81 99 Nasal Cannula 03/21/17 17:32 98 24 03/21/17 17:30 87 03/21/17 17:15 96 03/21/17 17:00 75 03/21/17 17:00 82 27 99 03/21/17 16:45 77 31 100 03/21/17 16:45 75 03/21/17 16:30 78 03/21/17 16:30 75 26 96/54 94 Nasal Cannula 03/21/17 16:15 75 30 100 Nasal Cannula 03/21/17 16:15 73 03/21/17 16:00 73 03/21/17 16:00 4 03/21/17 16:00 98.4 73 27 111/58 100 Nasal Cannula 03/21/17 15:45 73 03/21/17 15:30 72 03/21/17 15:15 74 03/21/17 15:00 73 03/21/17 15:00 71 24 100/55 100 Nasal Cannula 03/21/17 14:45 76 03/21/17 14:30 70 03/21/17 14:30 70 21 03/21/17 14:00 65 25 98/51 99 Nasal Cannula 03/21/17 13:00 69 28 122/69 100 Nasal Cannula 03/21/17 12:00 98.6 69 22 94/66 97 Nasal Cannula 03/21/17 12:00 68 03/21/17 11:34 99 4.0 03/21/17 11:00 68 21 112/63 100 03/21/17 10:00 68 26 121/68 92 03/21/17 09:30 70 21 117/74 96 03/21/17 09:00 67 14 106/68 100 Nasal Cannula 03/21/17 08:30 65 22 97/57 03/21/17 08:00 Nasal Cannula 4.0 03/21/17 08:00 98.4 67 20 119/63 100 Nasal Cannula 03/21/17 08:00 66 03/21/17 07:30 67 25 114/68 100 03/21/17 07:00 67 23 101/63 100 03/21/17 06:00 69 23 127/70 100 Nasal Cannula 03/21/17 05:30 23 125/73 Nasal Cannula 03/21/17 05:00 70 23 114/67 100 Nasal Cannula 03/21/17 04:30 69 24 117/65 100 Nasal Cannula 03/21/17 04:10 98 4.0 03/21/17 04:00 83 03/21/17 04:00 98.7 81 23 111/66 100 Nasal Cannula 03/21/17 03:30 71 24 112/72 99 Nasal Cannula 03/21/17 03:00 63 25 109/78 97 Nasal Cannula 03/21/17 02:30 70 24 125/74 Nasal Cannula 03/21/17 02:00 66 27 105/66 97 Nasal Cannula 03/21/17 01:30 83 28 99/62 96 Nasal Cannula 03/21/17 01:00 70 25 119/64 Nasal Cannula 03/21/17 00:30 74 29 111/59 96 Nasal Cannula 03/21/17 00:00 Nasal Cannula 4.0 03/21/17 00:00 70 03/21/17 00:00 97.8 80 29 123/66 100 Nasal Cannula 03/20/17 23:56 100 15.0 03/20/17 23:51 78 03/20/17 23:50 77 28 03/20/17 23:30 75 21 114/95 100 Nasal Cannula 03/20/17 23:30 76 03/20/17 23:15 71 03/20/17 23:00 68 30 119/75 100 Nasal Cannula 03/20/17 23:00 68 03/20/17 22:45 89 03/20/17 22:30 86 30 119/87 100 Nasal Cannula 03/20/17 22:30 89 03/20/17 22:15 85 34 118/78 92 Nasal Cannula 03/20/17 22:15 83 03/20/17 22:00 82 24 117/83 99 Nasal Cannula 03/20/17 21:55 71 03/20/17 21:45 74 28 137/105 100 Nasal Cannula 03/20/17 21:40 71 03/20/17 21:30 71 29 123/85 100 Nasal Cannula 03/20/17 21:20 73 03/20/17 21:15 70 28 124/83 100 Nasal Cannula 03/20/17 21:05 73 03/20/17 21:00 Non Rebreather 15.0 03/20/17 21:00 70 35 141/85 97 Nasal Cannula 03/20/17 20:50 70 29 03/20/17 20:50 70 03/20/17 20:30 70 35 124/68 98 Nasal Cannula 03/20/17 20:16 97.8 71 33 138/79 100 Nasal Cannula 03/20/17 20:00 71 03/20/17 19:44 70 03/20/17 16:30 Simple Mask 10.0 03/20/17 16:15 97.4 67 22 121/68 91 Nasal Cannula 03/20/17 16:00 67 Vital Signs Date Time Temp Pulse Resp B/P Pulse Ox O2 Delivery O2 Flow Rate FiO2 03/21/17 18:00 120 37 105/81 99 Nasal Cannula 03/21/17 16:00 98.4 03/21/17 11:34 4.0 Intake and Output 03/20/17 03/20/17 03/21/17 15:00 23:00 07:00 Intake Total 1550 ml Output Total 500 ml 4690 ml Balance -500 ml -3140 ml Exam Constitutional: alert, frail, oriented Psych: nl mood/affect, no complaints Eyes: EOMI, PERRL, nl conjunctiva, nl lids, nl sclera ENMT: mucosa pink and moist, nl external ears & nose Neck: non-tender, supple, No bruits, No masses, No thyromegaly Respiratory: clear to auscultation, normal air movement Cardiovascular: edema (1+ BLE), nl pulses, regular rate and rhythm Gastrointestinal: bowel sounds, nl liver, spleen, non-tender, soft, No mass, No rebound or guarding Musculoskeletal: nl extremities to inspection Extremities: edema (1+ BLE), normal pulses, No clubbing, No cyanosis 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: [employer] II-XII intact, nl mental status, nl speech, nl strength Additional Comments Bedside Glucose - 72 Hours Test 03/20/17 16:55 03/20/17 21:09 03/20/17 22:39 03/21/17 06:40 Bedside Glucose 232mg/dL (70-220) H 202mg/dL (70-220) 160mg/dL (70-220) 155mg/dL (70-220) Test 03/21/17 12:26 03/21/17 17:30 Bedside Glucose 166mg/dL (70-220) 169mg/dL (70-220) Results Result Diagram: 03/21/17 1325 03/21/17 0518 Results 24 hrs Laboratory Tests Test 03/20/17 20:44 03/20/17 21:09 03/20/17 22:39 03/21/17 05:00 Troponin I 3.290 *H Bedside Glucose 202 160 Blood Gas Specimen Source Blood arterial Arterial Blood Date Drawn 03/21/2017 5:45:46 AM Arterial Blood pH (Temp corrected) 7.405 Arterial Blood pCO2 (Temp correct) 35.9 Arterial Blood pO2 (Temp corrected) 86.8 Arterial Blood HCO3 22.0 Arterial Blood Base Excess -2.2 Arterial Blood Oxygen Saturation 95.5 Oniel Test ACCEPTAB Arterial Blood Gas Puncture Site Right Radial Arterial Blood Carboxyhemoglobin 0 Arterial Blood Methemoglobin 0.2 Blood Gas A-a O2 Differential 106.6 H Oxyhemoglobin Percent 95.3 Total Hemoglobin 12.3 Blood Gas Temperature 37.0 Blood Gas Modality NASAL CANNULA FiO2 33.0 Blood Gas Notified Whom UP Blood Gas Notified Time 03/21/2017 5:56:38 AM Test 03/21/17 05:11 03/21/17 05:18 03/21/17 06:40 03/21/17 08:00 Lab Scanned Report BLOOD TRANSFUSION White Blood Count 6.5 Red Blood Count 4.02 #L Hemoglobin 11.5 #L Hematocrit 34.5 #L Mean Corpuscular Volume 85.8 Mean Corpuscular Hemoglobin 28.6 L Mean Corpuscular Hemoglobin Concent 33.3 Red Cell Distribution Width 15.7 H Platelet Count 84 L Mean Platelet Volume 13.2 H Neutrophils % 89.5 H Lymphocytes % 1.5 L Monocytes % 7.7 Eosinophils % 0.2 Basophils % 0.0 Nucleated Red Blood Cells % 0.5 H Neutrophils # 5.8 Lymphocytes # 0.1 L Monocytes # 0.5 Eosinophils # 0.0 Basophils # 0.0 Nucleated Red Blood Cells # 0.0 Sodium Level 139 Potassium Level 3.4 L Chloride Level 98 Carbon Dioxide Level 23 Anion Gap 21 H Blood Urea Nitrogen 86 #H Creatinine 3.64 #H Glucose Level 155 Calcium Level 10.0 Phosphorus Level 5.2 H Vitamin B12 Level > 1000 H Thyroid Stimulating Hormone (TSH) 3.520 Free Thyroxine Index 2.83 Thyroxine (T4) 6.9 Triiodothyronine (T3) Uptake 41.0 H Bedside Glucose 155 Total Bilirubin 1.0 Direct Bilirubin 0.00 Indirect Bilirubin 1.0 Aspartate Amino Transf (AST/SGOT) 564 H Alanine Aminotransferase (ALT/SGPT) 427 H Alkaline Phosphatase 27 L Ammonia 14 Troponin I 5.490 *H Total Protein 7.5 Albumin 5.2 H Digoxin Level < 0.4 L Test 03/21/17 12:26 03/21/17 12:40 03/21/17 13:25 03/21/17 17:30 Bedside Glucose 166 169 Prothrombin Time 15.3 H Prothrombin Time Ratio 1.2 INR International Normalized Ratio 1.20 Activated Partial Thromboplast Time 34.3 White Blood Count 7.0 Red Blood Count 3.60 L Hemoglobin 10.6 L Hematocrit 30.4 L Mean Corpuscular Volume 84.4 Mean Corpuscular Hemoglobin 29.4 Mean Corpuscular Hemoglobin Concent 34.9 Red Cell Distribution Width 16.1 H Platelet Count 90 L Mean Platelet Volume 13.3 H Neutrophils % 90.0 H Lymphocytes % 2.6 L Monocytes % 5.9 Eosinophils % 0.4 Basophils % 0.1 Nucleated Red Blood Cells % 0.3 H Neutrophils # 6.3 Lymphocytes # 0.2 L Monocytes # 0.4 Eosinophils # 0.0 Basophils # 0.0 Nucleated Red Blood Cells # 0.0 Medications Medications Current Medications Ondansetron HCl (Zofran Inj) 4 mg Q6H PRN IV NAUSEA AND/OR VOMITING; Start at 17:00 Acetaminophen (Tylenol Tab) 650 mg Q6H PRN PO PAIN LEVEL 1-3 OR FEVER; Start at 17:00 Docusate Sodium (Colace) 100 mg Q12H PRN PO CONSTIPATION; Start 03/20/17 at 17: 00 Allopurinol (Zyloprim) 200 mg DAILY PO ; Start 03/21/17 at 09:00 Amlodipine Besylate (Norvasc) 5 mg DAILY PO ; Start 03/20/17 at 17:00 Clopidogrel Bisulfate (plaVIX) 75 mg DAILY PO Last administered on 03/21/17 08 :50; Admin Dose 75 MG; Start 03/21/17 at 09:00 Fenofibrate (Tricor) 145 mg DAILY PO ; Start 03/21/17 at 09:00 Levothyroxine Sodium (Synthroid) 50 mcg DAILY PO ; Start 03/21/17 at 09:00 Metoprolol Succinate (Toprol Xl) 50 mg BID PO ; Start 03/20/17 at 21:00 Isosorbide Dinitrate (Isordil) 20 mg BID PO Last administered on 03/21/17 08: 52; Admin Dose 20 MG; Start 03/20/17 at 21:00 Cyanocobalamin (Vitamin B12) 200 mcg DAILY PO ; Start 03/21/17 at 09:00 Cholecalciferol (Vitamin D) 2,000 unit DAILY PO ; Start 03/21/17 at 09:00 Pantoprazole (Protonix Tab) 40 mg DAILY@06 PO Last administered on 03/21/17 06 :38; Admin Dose 40 MG; Start 03/21/17 at 06:00 Fish Oil (Fish Oil) 1,000 mg BID PO Last administered on 03/20/17 21:12; Admin Dose 1,000 MG; Start 03/20/17 at 21:00 Miscellaneous Information 1 ea NOTE XX ; Start 03/20/17 at 17:30 Glucose (Glutose) 15 gm Q15M PRN PO DECREASED GLUCOSE; Start 03/20/17 at 17:30 Glucose (Glutose) 22.5 gm Q15M PRN PO DECREASED GLUCOSE; Start 03/20/17 at 17: 30 Dextrose (D50w Syringe) 25 ml Q15M PRN IV DECREASED GLUCOSE; Start 03/20/17 at 17:30 Dextrose (D50w Syringe) 50 ml Q15M PRN IV DECREASED GLUCOSE; Start 03/20/17 at 17:30 Glucagon (Glucagen) 1 mg Q15M PRN IM DECREASED GLUCOSE; Start 03/20/17 at 17:30 Glucose (Glutose) 15 gm Q15M PRN BUCCAL DECREASED GLUCOSE; Start 03/20/17 at 17 :30 Patient Own Medication 1 ea BID PO Last administered on 03/21/17 18:24; Admin Dose 1 EA; Start 03/20/17 at 21:00 Insulin Detemir (Levemir) 14 unit DAILY@20 SC Last administered on 03/20/17 22 :43; Admin Dose 14 UNIT; Start 03/20/17 at 22:06 Aspirin (Aspirin) 81 mg DAILY PO Last administered on 03/21/17 16:30; Admin Dose 81 MG; Start 03/21/17 at 13:30 JACQUES KATZ MD Mar 21, 2017 19:32
[2017-03-21] MEDS ORDERED: INSULIN DETEMIR [LEVEMIR] 3ML CART SC SCH (20:00)
[2017-03-21] MEDS ORDERED: VANCOMYCIN IV PER PHARMACY XX SCH (20:00)
[2017-03-21] MEDS: INSULIN DETEMIR [LEVEMIR] 3ML CART SC SCH (20:48)
[2017-03-21] MEDS ORDERED: VANCOMYCIN 1.5 GM in SOD CHLORIDE 0.9% 250 ML IVPB SCH (21:00)
[2017-03-22] VITALS (29 sets, daily range): BP systolic 85–128; BP diastolic 61–78; PULSE 78–119; RESP 17–32
[2017-03-22] MEDS: PANTOPRAZOLE (EC) 40 MG TAB PO SCH (06:36)
[2017-03-22] MEDS: INSULIN ASPART [NOVOLOG] 3 ML PEN SC SCH ×7 (07:35→20:15)
--- NOTE | 2017-03-22 07:38 | PN ---
Date/Time of Note Date/Time of Note DATE: 03/22/17 TIME: 07:35 Assessment/Plan VTE Prophylaxis VTE Prophylaxis Intervention: other Lines/Catheters IV Catheter Type (from Nrsg): [place] Cath. Urinary Cath still in place: Yes Reason Cath still needed: urinary retention Assessment/Plan Assessment/Plan 1. Acute MO, stable,, on plavix, asa and heparin, for cath today, chf resolved 2. ARF->will not recover and pt committed to continued Chronic Hemodialysis, next rx tomm 3. DM, sugars are acceptable, apprec Endo follow up 4. DC [place] later 5. Ask PT to see to get out of bed 6. Hematol to see-re:myelofibrosis 7. Labs pending 8. Abnl liver tests sec to passive liver congestion Subjective 24 Hr Interval Summary Respiratory: No cough, No pleuritic pain, No shortness of breath Cardiovascular: No chest pain Gastrointestinal: no complaints Genitourinary: other (robles in place) Neurologic: No confusion, No headache Exam/Review of Systems Vital Signs Vitals Vital Signs Date Time Temp Pulse Resp B/P Pulse Ox O2 Delivery O2 Flow Rate FiO2 03/22/17 04:00 110 03/22/17 04:00 98.5 23 101/73 100 Nasal Cannula 3.0 Intake and Output 03/21/17 03/21/17 03/22/17 15:00 23:00 07:00 Intake Total 900 ml 724 ml 18 ml Output Total 50 ml 5600 ml Balance 850 ml -4876 ml 18 ml Exam Neck: jvd Respiratory: clear to auscultation, diminished breath sounds Cardiovascular: murmurs/extra sounds (1/6 sys), regular rate and rhythm, No S3, No S4 Gastrointestinal: soft Extremities: No edema (and no calf tend) Results Result Diagram: 03/21/17 1325 03/21/17 0518 Results 24 hrs Laboratory Tests Test 03/21/17 08:00 03/21/17 12:26 03/21/17 12:40 03/21/17 13:25 Total Bilirubin 1.0 Direct Bilirubin 0.00 Indirect Bilirubin 1.0 Aspartate Amino Transf (AST/SGOT) 564 H Alanine Aminotransferase (ALT/SGPT) 427 H Alkaline Phosphatase 27 L Ammonia 14 Troponin I 5.490 *H Total Protein 7.5 Albumin 5.2 H Digoxin Level < 0.4 L Bedside Glucose 166 Prothrombin Time 15.3 H Prothrombin Time Ratio 1.2 INR International Normalized Ratio 1.20 Activated Partial Thromboplast Time 34.3 White Blood Count 7.0 Red Blood Count 3.60 L Hemoglobin 10.6 L Hematocrit 30.4 L Mean Corpuscular Volume 84.4 Mean Corpuscular Hemoglobin 29.4 Mean Corpuscular Hemoglobin Concent 34.9 Red Cell Distribution Width 16.1 H Platelet Count 90 L Mean Platelet Volume 13.3 H Neutrophils % 90.0 H Lymphocytes % 2.6 L Monocytes % 5.9 Eosinophils % 0.4 Basophils % 0.1 Nucleated Red Blood Cells % 0.3 H Neutrophils # 6.3 Lymphocytes # 0.2 L Monocytes # 0.4 Eosinophils # 0.0 Basophils # 0.0 Nucleated Red Blood Cells # 0.0 Test 03/21/17 17:30 03/21/17 20:15 03/21/17 20:34 03/22/17 00:45 Bedside Glucose 169 217 Activated Partial Thromboplast Time 154.1 *H 89.8 *H Test 03/22/17 06:35 Bedside Glucose 101 Medications Medications Current Medications Ondansetron HCl (Zofran Inj) 4 mg Q6H PRN IV NAUSEA AND/OR VOMITING; Start at 17:00 Acetaminophen (Tylenol Tab) 650 mg Q6H PRN PO PAIN LEVEL 1-3 OR FEVER; Start at 17:00 Docusate Sodium (Colace) 100 mg Q12H PRN PO CONSTIPATION; Start 03/20/17 at 17: 00 Allopurinol (Zyloprim) 200 mg DAILY PO ; Start 03/21/17 at 09:00 Amlodipine Besylate (Norvasc) 5 mg DAILY PO ; Start 03/20/17 at 17:00 Clopidogrel Bisulfate (plaVIX) 75 mg DAILY PO Last administered on 03/21/17t 08 :50; Admin Dose 75 MG; Start 03/21/17 at 09:00 Fenofibrate (Tricor) 145 mg DAILY PO ; Start 03/21/17 at 09:00 Levothyroxine Sodium (Synthroid) 50 mcg DAILY PO ; Start 03/21/17 at 09:00 Metoprolol Succinate (Toprol Xl) 50 mg BID PO ; Start 03/20/17 at 21:00 Isosorbide Dinitrate (Isordil) 20 mg BID PO Last administered on 03/21/17 08: 52; Admin Dose 20 MG; Start 03/20/17 at 21:00 Cyanocobalamin (Vitamin B12) 200 mcg DAILY PO ; Start 03/21/17 at 09:00 Cholecalciferol (Vitamin D) 2,000 unit DAILY PO ; Start 03/21/17 at 09:00 Pantoprazole (Protonix Tab) 40 mg DAILY@06 PO Last administered on 03/22/17 06 :36; Admin Dose 40 MG; Start 03/21/17 at 06:00 Fish Oil (Fish Oil) 1,000 mg BID PO Last administered on 03/21/17 20:45; Admin Dose 1,000 MG; Start 03/20/17 at 21:00 Miscellaneous Information 1 ea NOTE XX ; Start 03/20/17 at 17:30 Glucose (Glutose) 15 gm Q15M PRN PO DECREASED GLUCOSE; Start 03/20/17 at 17:30 Glucose (Glutose) 22.5 gm Q15M PRN PO DECREASED GLUCOSE; Start 03/20/17 at 17: 30 Dextrose (D50w Syringe) 25 ml Q15M PRN IV DECREASED GLUCOSE; Start 03/20/17 at 17:30 Dextrose (D50w Syringe) 50 ml Q15M PRN IV DECREASED GLUCOSE; Start 03/20/17 at 17:30 Glucagon (Glucagen) 1 mg Q15M PRN IM DECREASED GLUCOSE; Start 03/20/17 at 17:30 Glucose (Glutose) 15 gm Q15M PRN BUCCAL DECREASED GLUCOSE; Start 03/20/17 at 17 :30 Patient Own Medication 1 ea BID PO Last administered on 03/21/17 18:24; Admin Dose 1 EA; Start 03/20/17 at 21:00 Insulin Detemir (Levemir) 14 unit DAILY@20 SC Last administered on 03/21/17 20 :48; Admin Dose 14 UNIT; Start 03/20/17 at 22:06 Aspirin (Aspirin) 81 mg DAILY PO Last administered on 03/21/17 16:30; Admin Dose 81 MG; Start 03/21/17 at 13:30 Vancomycin HCl (Vanco Iv Per Pharmacy) PER PHARMACY DOSING NOTE XX ; Start 03/21 at 20:00 JULIANNE ESTRELLA MD Mar 22, 2017 07:38
[2017-03-22] MEDS: ISOSORBIDE DINITRATE 20 MG TAB PO SCH ×2 (08:00→20:19)
[2017-03-22] MEDS: CHOLECALCIFEROL 2,000 UNIT CAP PO SCH (08:48)
[2017-03-22] MEDS: CYANOCOBALAMIN 100 MCG TAB PO SCH (08:48)
[2017-03-22] MEDS: LEVOTHYROXINE 50 MCG TAB PO SCH (08:48)
[2017-03-22] MEDS: ALLOPURINOL 100 MG TAB PO SCH (08:49)
[2017-03-22] MEDS: FENOFIBRATE 145 MG TAB PO SCH (08:49)
[2017-03-22] MEDS: FISH OIL 1,000 MG CAP PO SCH ×2 (08:49→20:18)
[2017-03-22] MEDS: MULTIVIT/CA CARB/B CMPLX/FA TAB PO SCH (08:49)
[2017-03-22] MEDS: ASPIRIN 81 MG TAB PO SCH (08:50)
[2017-03-22] MEDS: CLOPIDOGREL 75 MG TAB PO SCH (08:50)
[2017-03-22] MEDS: JAKAFI 5 MG PO SCH ×2 (08:51→20:18)
[2017-03-22 08:56] LABS: ABNORMAL IP MESSAGE 1; EOSINOPHILS # 0.1 10^3/ul (0.0-0.5); EOSINOPHILS % 0.9 % (0.0-7.0); HEMATOCRIT 29.4 % (42.0-52.0); HEMOGLOBIN 10.2 g/dl (14.0-18.0); LYMPHOCYTES # 0.3 10^3/ul (0.8-2.9); LYMPHOCYTES % 4.7 % (15.0-51.0); MEAN CORPUSCULAR HEMOGLOBIN 29.2 pg (29.0-33.0); MEAN CORPUSCULAR HGB CONC 34.7 g/dl (32.0-37.0); MEAN CORPUSCULAR VOLUME 84.2 fl (82.0-101.0); MEAN PLATELET VOLUME 13.3 fl (7.4-10.4); MONOCYTE # 0.5 10^3/ul (0.3-0.9); MONOCYTES % 7.8 % (0.0-11.0); NEUTROPHILS % 85.7 % (39.0-77.0); NUCLEATED RED BLOOD CELLS% 0.3 /100WBC (0.0-0.0); RED BLOOD COUNT 3.49 10^6/ul (4.70-6.10); RED CELL DISTRIBUTION WIDTH 16.2 % (11.5-14.5); WHITE BLOOD COUNT 5.8 10^3/ul (4.8-10.8)
[2017-03-22] MEDS: AMLODIPINE 5 MG TAB PO SCH (09:00)
[2017-03-22 09:02] LABS: ADD SCAN DIFF NO; PLATELET COUNT 68 10^3/UL (140-415)
[2017-03-22 09:18] LABS: ALBUMIN 4.7 g/dl (3.3-4.9); ALBUMIN/GLOBULIN RATIO 1.95; BILIRUBIN,INDIRECT 0.5 mg/dl (0-1.1); BILIRUBIN,TOTAL 0.5 mg/dl (0.2-1.3); CALCIUM 8.9 mg/dl (8.4-10.2); CREATININE 3.42 mg/dl (0.61-1.24); TOTAL PROTEIN 7.1 g/dl (6.1-8.1)
[2017-03-22] MEDS: METOPROLOL (XL) 50 MG TAB PO SCH ×2 (10:00→20:19)
--- NOTE | 2017-03-22 10:59 | CONS ---
Date/Time of Note Date/Time of Note DATE: 03/22/17 TIME: 10:23 Assessment/Plan Assessment/Plan Chief Complaint/Hosp Course Pt has had probable AK with CHF. Has resulted in worsening renal function and is likely now to require chronic dialysis. Pt has myelofibrosis and has bee receiving JAKAFI and erythropoietin. These should be continued. Pt has had a significant drop in platelets since admit and plt ct on admit was lower that his usual counts of >200,000, Doubt that this represents a consumptive coagulopathy such as TTP or HUS. Cannot r/o DIC and will request fibrinogen and D-Dimer levels. Plt count was lower than his usual on admission but had dropped since and during that time the pt has been started on hepatin. Will request evaluation for HIT. Problems: Consultation Date/Type/Reason Admit Date/Time Mar 20, 2017 at 15:32 Date of Consultation: Mar 22, 2017 Type of Consultation: hematology/oncology Reason for Consultation Myeloproliferative Neoplasm (MPN)--myelofibrosis Referring Provider: JULIANNE ESTRELLA MD Hx of Present Illness Pt is a 82 y/o male admitted th [facility] on 03/20/17 with c/o difficulty sleeping for past week. Has had some SOB with orthopnea and PND. Pt denies chest pain. Pt has hx of CAD with previous CABG and stent placement X2. Pt5 was hospitalized here 2 mos ago with SBO. During that hospital stay the pt had an AK and episode of V-tach. Required CPR and was intubated. Pt has episode of hypotension and had worsening of his underlying renal failure. Did require short term hemodialysis. During this admit the pt has had elevated troponins and had likely had a non- STEMI. He is scheduled for coronary angiography later today. Pt has had deterioration of renal function again and has had the placement of Rt IJ dialysis cath and started on hemodialysis. Pt has been placed on heparin and received initial heparin dose on 03/20. Pt on admission had Hgb of 7.8 and Plt of ~ 100,000. Has received 3 units of RBC's and plt ct has dropped to 65,000. Pt has had no unusual bleeding. 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 Has been followed by Dr Karis Montilla at [facility]. Pt has been receiving JAKAFI and erythropoietin. Constitutional: improved, requiring O2 Eyes: no complaints ENT: no complaints Respiratory: No cough, No pleuritic pain, No shortness of breath Cardiovascular: No chest pain Gastrointestinal: no complaints Genitourinary: other (robles in place) Musculoskeletal: no complaints Skin: bruising Neurologic: No confusion, No headache Endocrine: no complaints Lymphatic: no complaints Psychological: no complaints Immunologic: no complaints Past Medical History Medical History: congestive heart failure, coronary artery disease, diabetes, high cholesterol, hypertension, hypothyroid, renal disease, other (myelofibrosis , kidney stones, spinal stenosis, SVT, deformity of lower leg, gout, SBO) Past Surgical History Past Surgical Hx: angioplasty, appendectomy, coronary bypass surgery, other ( spinal surgery) Social History Alcohol Use: occasionally Smoking Status: Former smoker (1.5 ppd x 15 y) Drug Use: none Exam/Review of Systems Vital Signs Vitals Vital Signs Date Time Temp Pulse Resp B/P Pulse Ox O2 Delivery O2 Flow Rate FiO2 03/22/17 08:00 113 03/22/17 07:30 98.6 23 109/72 97 Nasal Cannula 3.0 Intake and Output 03/21/17 03/21/17 03/22/17 15:00 23:00 07:00 Intake Total 900 ml 724 ml 638 ml Output Total 50 ml 5600 ml 200 ml Balance 850 ml -4876 ml 438 ml Exam Constitutional: alert, oriented, well developed Psych: nl mood/affect, no complaints Head: atraumatic, normocephalic Eyes: EOMI, nl conjunctiva, nl lids, nl sclera ENMT: mucosa pink and moist, nl external ears & nose, nl lips & teeth, nl nasal mucosa & septum Neck: non-tender, supple Respiratory: clear to auscultation, normal air movement Cardiovascular: other (Sternotomy scar present. 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 Result Diagram: 03/22/17 0835 03/22/17 0835 Results 24 hrs Laboratory Tests Test 03/21/17 12:26 03/21/17 12:40 03/21/17 13:25 03/21/17 17:30 Bedside Glucose 166 169 Prothrombin Time 15.3 H Prothrombin Time Ratio 1.2 INR International Normalized Ratio 1.20 Activated Partial Thromboplast Time 34.3 White Blood Count 7.0 Red Blood Count 3.60 L Hemoglobin 10.6 L Hematocrit 30.4 L Mean Corpuscular Volume 84.4 Mean Corpuscular Hemoglobin 29.4 Mean Corpuscular Hemoglobin Concent 34.9 Red Cell Distribution Width 16.1 H Platelet Count 90 L Mean Platelet Volume 13.3 H Neutrophils % 90.0 H Lymphocytes % 2.6 L Monocytes % 5.9 Eosinophils % 0.4 Basophils % 0.1 Nucleated Red Blood Cells % 0.3 H Neutrophils # 6.3 Lymphocytes # 0.2 L Monocytes # 0.4 Eosinophils # 0.0 Basophils # 0.0 Nucleated Red Blood Cells # 0.0 Test 03/21/17 20:15 03/21/17 20:34 03/22/17 00:45 03/22/17 06:35 Activated Partial Thromboplast Time 154.1 *H 89.8 *H Bedside Glucose 217 101 Test 03/22/17 07:26 03/22/17 08:35 Bedside Glucose 106 White Blood Count 5.8 Red Blood Count 3.49 L Hemoglobin 10.2 L Hematocrit 29.4 L Mean Corpuscular Volume 84.2 Mean Corpuscular Hemoglobin 29.2 Mean Corpuscular Hemoglobin Concent 34.7 Red Cell Distribution Width 16.2 H Platelet Count 68 #L Mean Platelet Volume 13.3 H Neutrophils % 85.7 H Lymphocytes % 4.7 L Monocytes % 7.8 Eosinophils % 0.9 Basophils % 0.0 Nucleated Red Blood Cells % 0.3 H Neutrophils # 5.0 Lymphocytes # 0.3 L Monocytes # 0.5 Eosinophils # 0.1 Basophils # 0.0 Nucleated Red Blood Cells # 0.0 Activated Partial Thromboplast Time 66.5 H Sodium Level 131 L Potassium Level 3.0 L Chloride Level 93 L Carbon Dioxide Level 26 Anion Gap 15 Blood Urea Nitrogen 63 H Creatinine 3.42 H Glucose Level 99 # Calcium Level 8.9 Total Bilirubin 0.5 Direct Bilirubin 0.00 Indirect Bilirubin 0.5 Aspartate Amino Transf (AST/SGOT) 431 H Alanine Aminotransferase (ALT/SGPT) 460 H Alkaline Phosphatase 27 L Total Protein 7.1 Albumin 4.7 Globulin 2.40 Albumin/Globulin Ratio 1.95 Medications Medications Current Medications Ondansetron HCl (Zofran Inj) 4 mg Q6H PRN IV NAUSEA AND/OR VOMITING; Start at 17:00 Acetaminophen (Tylenol Tab) 650 mg Q6H PRN PO PAIN LEVEL 1-3 OR FEVER; Start at 17:00 Docusate Sodium (Colace) 100 mg Q12H PRN PO CONSTIPATION; Start 03/20/17 at 17: 00 Allopurinol (Zyloprim) 200 mg DAILY PO Last administered on 03/22/17 08:49; Admin Dose 200 MG; Start 03/21/17 at 09:00 Amlodipine Besylate (Norvasc) 5 mg DAILY PO ; Start 03/20/17 at 17:00 Clopidogrel Bisulfate (plaVIX) 75 mg DAILY PO Last administered on 03/22/17 08 :50; Admin Dose 75 MG; Start 03/21/17 at 09:00 Fenofibrate (Tricor) 145 mg DAILY PO Last administered on 03/22/17 08:49; Admin Dose 145 MG; Start 03/21/17 at 09:00 Levothyroxine Sodium (Synthroid) 50 mcg DAILY PO Last administered on 08:48; Admin Dose 50 MCG; Start 03/21/17 at 09:00 Metoprolol Succinate (Toprol Xl) 50 mg BID PO ; Start 03/20/17 at 21:00 Isosorbide Dinitrate (Isordil) 20 mg BID PO Last administered on 03/21/17 08: 52; Admin Dose 20 MG; Start 03/20/17 at 21:00 Cyanocobalamin (Vitamin B12) 200 mcg DAILY PO Last administered on 03/22/17 08 :48; Admin Dose 200 MCG; Start 03/21/17 at 09:00 Cholecalciferol (Vitamin D) 2,000 unit DAILY PO Last administered on 03/22/17 08:48; Admin Dose 2,000 UNIT; Start 03/21/17 at 09:00 Pantoprazole (Protonix Tab) 40 mg DAILY@06 PO Last administered on 03/22/17 06 :36; Admin Dose 40 MG; Start 03/21/17 at 06:00 Fish Oil (Fish Oil) 1,000 mg BID PO Last administered on 03/22/17 08:49; Admin Dose 1,000 MG; Start 03/20/17 at 21:00 Miscellaneous Information 1 ea NOTE XX ; Start 03/20/17 at 17:30 Glucose (Glutose) 15 gm Q15M PRN PO DECREASED GLUCOSE; Start 03/20/17 at 17:30 Glucose (Glutose) 22.5 gm Q15M PRN PO DECREASED GLUCOSE; Start 03/20/17 at 17: 30 Dextrose (D50w Syringe) 25 ml Q15M PRN IV DECREASED GLUCOSE; Start 03/20/17 at 17:30 Dextrose (D50w Syringe) 50 ml Q15M PRN IV DECREASED GLUCOSE; Start 03/20/17 at 17:30 Glucagon (Glucagen) 1 mg Q15M PRN IM DECREASED GLUCOSE; Start 03/20/17 at 17:30 Glucose (Glutose) 15 gm Q15M PRN BUCCAL DECREASED GLUCOSE; Start 03/20/17 at 17 :30 Patient Own Medication 1 ea BID PO Last administered on 03/22/17 08:51; Admin Dose 1 EA; Start 03/20/17 at 21:00 Insulin Detemir (Levemir) 14 unit DAILY@20 SC Last administered on 03/21/17 20 :48; Admin Dose 14 UNIT; Start 03/20/17 at 22:06 Aspirin (Aspirin) 81 mg DAILY PO Last administered on 03/22/17 08:50; Admin Dose 81 MG; Start 03/21/17 at 13:30 Vancomycin HCl (Vanco Iv Per Pharmacy) PER PHARMACY DOSING NOTE XX ; Start 03/21 at 20:00 Multivit/Ca Carb/ B Cmplx/FA/Prenat (Nadiya-Ozzie) 1 tab DAILY PO Last administered on 03/22/17 08:49; Admin Dose 1 TAB; Start 03/22/17 at 09:00 Miscellaneous Information (*Rx Drug Level Order Reminder*) VANCO RANDOM LEVEL... ONCE ONCE XX ; Start 03/23/17 at 05:00; Stop 03/23/17 at 05:01 Epoetin Magdiel (Epogen (Esrd)) 10,000 units MoWeFr@17 SC ; Start 03/22/17 at 17:00 Copies To: CC: JULIANNE ESTRELLA MD, STANLEY H MD Mar 22, 2017 10:39
[2017-03-22 13:46] LABS: D-DIMER 1768.49 ng/ml (<460)
[2017-03-22] MEDS ORDERED: POTASSIUM CHLORIDE (SR) 10 MEQ TAB PO ONE (14:00)
[2017-03-22] MEDS ORDERED: POTASSIUM CHLORIDE (SR) 20 MEQ TAB PO ONE (14:30)
[2017-03-22] MEDS ORDERED: POTASSIUM CHLORIDE 20 MEQ in SOD CHLORIDE 0.9% 100 ML IVPB ONE (16:00)
[2017-03-22] MEDS: EPOETIN 10000 UNITS/1 ML INJ (ESRD) SC SCH (16:42)
[2017-03-22] MEDS ORDERED: EPOETIN 10000 UNITS/ML (NON ESRD/NON ONCOLOGY) SC SCH (17:00)
[2017-03-22] MEDS ORDERED: MIDAZOLAM 1 MG/ML 2 ML INJ ONE (17:44)
[2017-03-22] MEDS ORDERED: niCARdipine 25 MG INJ ONE (17:44)
[2017-03-22] MEDS ORDERED: FENTAnyl 50 MCG/ML VIAL ONE (17:44)
[2017-03-22] MEDS ORDERED: HEPARIN 1000 UNITS/ML 10 ML INJ ONE (17:55)
[2017-03-22] MEDS ORDERED: SOD CHLORIDE 0.9% 500 ML ONE (18:38)
[2017-03-22] MEDS ORDERED: IODIXANOL LOCM 100 ML BTL ONE ×2 (18:38)
[2017-03-22] MEDS ORDERED: LIDOCAINE 1% (MDV) 20 ML INJ ONE (18:38)
[2017-03-22] MEDS ORDERED: OXYCODONE/ACETAMINOPHEN (5/325) TAB PO PRN (19:30)
[2017-03-22] MEDS ORDERED: AL HYDROX/MG HYDROX/SIMETH 30 ML CUP PO PRN (19:30)
[2017-03-22] MEDS ORDERED: ONDANSETRON 4 MG INJ IV PRN (19:30)
--- NOTE | 2017-03-22 19:33 | CONS ---
Date/Time of Note Date/Time of Note DATE: 03/22/17 TIME: 19:27 Assessment/Plan Assessment/Plan Chief Complaint/Hosp Course Impression: - NSTEMI- recurrent, has occluded LM with un revascularized area of distal LCx and Proximal LAD. 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 pt s/p PCI with INGA x 1 to SVG-OM1 mid graft stenosis with good result. - CKD- iHD initiated via R IJ catheter for fluid mgmt - Acute on chronic systolic heart failure- likely related to ESRD and fluid overload, fluid mgmt with iHD - s/p ICD normal fxn, h/o VT/VF - Myleofibrosis with anemia s/p transfusion, also now thrombocytopenia, will need to cont asa/plavix given PCI with INGA. ok to hold heparin products Recommendations: - cont asa 81mg daily - cont plavix 75 mg daily - ok to STOP heparin - cont metoprolol as tolerated - cont nitrate and titrate - case d/w patient/family and Dr. Estrella Problems: Consultation Date/Type/Reason Admit Date/Time Mar 20, 2017 at 15:32 Initial Consult Date 03/22/17 Type of Consultation: cardiology Referring Provider: JULIANNE ESTRELLA MD 24 HR Interval Summary Free Text/Dictation pt doing well, no cp/sob. tolerating iHD bp stable. 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 s/p PCI with INGA x 1 with good result, JENNIFER 3 flow post procedure R groin access site closured with perclose suture. pt tolerated procedure well, no complications. Detailed Summary ENT: no complaints Respiratory: no complaints Cardiovascular: no complaints Gastrointestinal: no complaints Exam/Review of Systems Vital Signs Vitals Vital Signs Date Time Temp Pulse Resp B/P Pulse Ox O2 Delivery O2 Flow Rate FiO2 03/22/17 17:00 119 28 113/78 100 03/22/17 16:00 98.2 03/22/17 13:01 3.0 03/22/17 12:00 Nasal Cannula Intake and Output 03/21/17 03/21/17 03/22/17 15:00 23:00 07:00 Intake Total 900 ml 724 ml 638 ml Output Total 50 ml 5600 ml 200 ml Balance 850 ml -4876 ml 438 ml Exam Constitutional: alert, oriented, other (fatigued) Psych: no complaints Head: atraumatic, normocephalic Eyes: EOMI, nl conjunctiva, nl lids ENMT: mucosa pink and moist Neck: non-tender, supple, No jvd Respiratory: other (mild crackles in lateral bases) Cardiovascular: other (RRR, nl s1s2, ii/vi systolic lLSB) Gastrointestinal: non-tender, soft Musculoskeletal: nl extremities to inspection Extremities: normal pulses 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: PROGRAM TRAINER II-XII intact, nl mental status Results Result Diagram: 03/22/17 0835 03/22/17 0835 Results 24 hrs Laboratory Tests Test 03/21/17 20:15 03/21/17 20:34 03/22/17 00:45 03/22/17 06:35 Activated Partial Thromboplast Time 154.1 *H 89.8 *H Bedside Glucose 217 101 Test 03/22/17 07:26 03/22/17 08:35 03/22/17 11:43 03/22/17 12:48 Bedside Glucose 106 132 White Blood Count 5.8 Red Blood Count 3.49 L Hemoglobin 10.2 L Hematocrit 29.4 L Mean Corpuscular Volume 84.2 Mean Corpuscular Hemoglobin 29.2 Mean Corpuscular Hemoglobin Concent 34.7 Red Cell Distribution Width 16.2 H Platelet Count 68 #L Mean Platelet Volume 13.3 H Neutrophils % 85.7 H Lymphocytes % 4.7 L Monocytes % 7.8 Eosinophils % 0.9 Basophils % 0.0 Nucleated Red Blood Cells % 0.3 H Neutrophils # 5.0 Lymphocytes # 0.3 L Monocytes # 0.5 Eosinophils # 0.1 Basophils # 0.0 Nucleated Red Blood Cells # 0.0 Activated Partial Thromboplast Time 66.5 H Sodium Level 131 L Potassium Level 3.0 L Chloride Level 93 L Carbon Dioxide Level 26 Anion Gap 15 Blood Urea Nitrogen 63 H Creatinine 3.42 H Glucose Level 99 # Calcium Level 8.9 Total Bilirubin 0.5 Direct Bilirubin 0.00 Indirect Bilirubin 0.5 Aspartate Amino Transf (AST/SGOT) 431 H Alanine Aminotransferase (ALT/SGPT) 460 H Alkaline Phosphatase 27 L Total Protein 7.1 Albumin 4.7 Globulin 2.40 Albumin/Globulin Ratio 1.95 Fibrinogen 407.0 D-Dimer 1768.49 H D-Dimer Comment Test 03/22/17 17:03 Bedside Glucose 111 Medications Medications Current Medications Ondansetron HCl (Zofran Inj) 4 mg Q6H PRN IV NAUSEA AND/OR VOMITING; Start at 17:00 Acetaminophen (Tylenol Tab) 650 mg Q6H PRN PO PAIN LEVEL 1-3 OR FEVER; Start at 17:00 Docusate Sodium (Colace) 100 mg Q12H PRN PO CONSTIPATION; Start 03/20/17 at 17: 00 Allopurinol (Zyloprim) 200 mg DAILY PO Last administered on 03/22/17 08:49; Admin Dose 200 MG; Start 03/21/17 at 09:00 Amlodipine Besylate (Norvasc) 5 mg DAILY PO ; Start 03/20/17 at 17:00 Clopidogrel Bisulfate (plaVIX) 75 mg DAILY PO Last administered on 03/22/17 08 :50; Admin Dose 75 MG; Start 03/21/17 at 09:00 Fenofibrate (Tricor) 145 mg DAILY PO Last administered on 03/22/17 08:49; Admin Dose 145 MG; Start 03/21/17 at 09:00 Levothyroxine Sodium (Synthroid) 50 mcg DAILY PO Last administered on 08:48; Admin Dose 50 MCG; Start 03/21/17 at 09:00 Metoprolol Succinate (Toprol Xl) 50 mg BID PO ; Start 03/20/17 at 21:00 Isosorbide Dinitrate (Isordil) 20 mg BID PO Last administered on 03/21/17 08: 52; Admin Dose 20 MG; Start 03/20/17 at 21:00 Cyanocobalamin (Vitamin B12) 200 mcg DAILY PO Last administered on 03/22/17 08 :48; Admin Dose 200 MCG; Start 03/21/17 at 09:00 Cholecalciferol (Vitamin D) 2,000 unit DAILY PO Last administered on 03/22/17 08:48; Admin Dose 2,000 UNIT; Start 03/21/17 at 09:00 Pantoprazole (Protonix Tab) 40 mg DAILY@06 PO Last administered on 03/22/17 06 :36; Admin Dose 40 MG; Start 03/21/17 at 06:00 Fish Oil (Fish Oil) 1,000 mg BID PO Last administered on 03/22/17 08:49; Admin Dose 1,000 MG; Start 03/20/17 at 21:00 Miscellaneous Information 1 ea NOTE XX ; Start 03/20/17 at 17:30 Glucose (Glutose) 15 gm Q15M PRN PO DECREASED GLUCOSE; Start 03/20/17 at 17:30 Glucose (Glutose) 22.5 gm Q15M PRN PO DECREASED GLUCOSE; Start 03/20/17 at 17: 30 Dextrose (D50w Syringe) 25 ml Q15M PRN IV DECREASED GLUCOSE; Start 03/20/17 at 17:30 Dextrose (D50w Syringe) 50 ml Q15M PRN IV DECREASED GLUCOSE; Start 03/20/17 at 17:30 Glucagon (Glucagen) 1 mg Q15M PRN IM DECREASED GLUCOSE; Start 03/20/17 at 17:30 Glucose (Glutose) 15 gm Q15M PRN BUCCAL DECREASED GLUCOSE; Start 03/20/17 at 17 :30 Patient Own Medication 1 ea BID PO Last administered on 03/22/17 08:51; Admin Dose 1 EA; Start 03/20/17 at 21:00 Insulin Detemir (Levemir) 14 unit DAILY@20 SC Last administered on 03/21/17 20 :48; Admin Dose 14 UNIT; Start 03/20/17 at 22:06 Aspirin (Aspirin) 81 mg DAILY PO Last administered on 03/22/17 08:50; Admin Dose 81 MG; Start 03/21/17 at 13:30 Vancomycin HCl (Vanco Iv Per Pharmacy) PER PHARMACY DOSING NOTE XX ; Start 03/21 at 20:00 Multivit/Ca Carb/ B Cmplx/FA/Prenat (Nadiya-Ozzie) 1 tab DAILY PO Last administered on 03/22/17 08:49; Admin Dose 1 TAB; Start 03/22/17 at 09:00 Miscellaneous Information (*Rx Drug Level Order Reminder*) VANCO RANDOM LEVEL... ONCE ONCE XX ; Start 03/23/17 at 05:00; Stop 03/23/17 at 05:01 Epoetin Magdiel (Epogen (Esrd)) 10,000 units MoWeFr@17 SC Last administered on 16:42; Admin Dose 10,000 UNITS; Start 03/22/17 at 17:00 Procedures Procedures tele reviewed: NSR no events dvt us images reviewed: no evidence of deep vein thrombosis SAMY ROSALES. Mar 22, 2017 19:33
[2017-03-22] MEDS: INSULIN DETEMIR [LEVEMIR] 3ML CART SC SCH (20:15)
[2017-03-22 22:32] LABS: POTASSIUM 3.9 mmol/L (3.5-5.1)
[2017-03-23] VITALS (36 sets, daily range): BP systolic 102–144; BP diastolic 55–105; PULSE 72–86; RESP 16–28
[2017-03-23 06:06] LABS: ABNORMAL IP MESSAGE 1; EOSINOPHILS # 0.1 10^3/ul (0.0-0.5); EOSINOPHILS % 1.5 % (0.0-7.0); HEMATOCRIT 30.3 % (42.0-52.0); LYMPHOCYTES # 0.4 10^3/ul (0.8-2.9); LYMPHOCYTES % 8.6 % (15.0-51.0); MEAN CORPUSCULAR HEMOGLOBIN 28.4 pg (29.0-33.0); MEAN CORPUSCULAR VOLUME 86.1 fl (82.0-101.0); MEAN PLATELET VOLUME 12.9 fl (7.4-10.4); MONOCYTE # 0.5 10^3/ul (0.3-0.9); NEUTROPHIL # 3.7 10^3/ul (1.6-7.5); NEUTROPHILS % 77.6 % (39.0-77.0); PLATELET COUNT 70 10^3/UL (140-415); RED BLOOD COUNT 3.52 10^6/ul (4.70-6.10); RED CELL DISTRIBUTION WIDTH 16.1 % (11.5-14.5); WHITE BLOOD COUNT 4.7 10^3/ul (4.8-10.8)
[2017-03-23 06:13] LABS: ALBUMIN 4.4 g/dl (3.3-4.9); ALBUMIN/GLOBULIN RATIO 1.76; BILIRUBIN,INDIRECT 0.3 mg/dl (0-1.1); BILIRUBIN,TOTAL 0.3 mg/dl (0.2-1.3); CALCIUM 9.3 mg/dl (8.4-10.2); CREATININE 3.32 mg/dl (0.61-1.24); POTASSIUM 3.8 mmol/L (3.5-5.1); TOTAL PROTEIN 6.9 g/dl (6.1-8.1)
[2017-03-23] MEDS: PANTOPRAZOLE (EC) 40 MG TAB PO SCH (06:29)
--- NOTE | 2017-03-23 06:40 | CONS ---
Date/Time of Note Date/Time of Note DATE: 03/23/17 TIME: 06:27 Assessment/Plan Assessment/Plan Chief Complaint/Hosp Course 1) ARF on CRI pt to get HD today 2) CAD with NSTEMI s/p stent and angioplasty on 03/22/17 asymptomatic currently 3) GPC in blood (Coag neg staph) in 1/4 bottles pt got vanco on 03/21 this is likely a contaminant and no further vanco will be necessary 4) DM in good control according to the patient [employer] 5) hx of gout no symptoms 6)myelofibrosis now with some thrombocytopenia doubt infection is causing the decrease in platelets Problems: Consultation Date/Type/Reason Admit Date/Time Mar 20, 2017 at 15:32 Date of Consultation: Mar 23, 2017 Type of Consultation: ID Hx of Present Illness 82yo WM admitted with fatigue, poor appetite, weakness and worsening renal function He denies SOB, CP, cough, sore throat, F, C, NS [employer] BL[employer]STITCH no dysuria, N, V, D Since admission he had a cardiac cath with angioplasty and stent placement This morning he feels fine and is asking for a martini. Constitutional: improved, requiring O2 Eyes: no complaints ENT: no complaints Respiratory: no complaints Cardiovascular: no complaints Gastrointestinal: no complaints Genitourinary: other (robles in place) Musculoskeletal: no complaints Skin: bruising Neurologic: No confusion, No headache Endocrine: no complaints Lymphatic: no complaints Psychological: nl mood/affect, no complaints Immunologic: no complaints Past Medical History CRI, CAD, HTN, gout, myelofibrosis, hyperlipidemia, DM Medical History: congestive heart failure, coronary artery disease, diabetes, high cholesterol, hypertension, hypothyroid, renal disease, other (myelofibrosis , kidney stones, spinal stenosis, SVT, deformity of lower leg, gout, SBO) Past Surgical History Past Surgical Hx: angioplasty, appendectomy, coronary bypass surgery, other ( spinal surgery) Social History Alcohol Use: occasionally Smoking Status: Former smoker (1.5 ppd x 15 y) Drug Use: none Exam/Review of Systems Vital Signs Vitals Vital Signs Date Time Temp Pulse Resp B/P Pulse Ox O2 Delivery O2 Flow Rate FiO2 03/23/17 05:44 2.0 03/23/17 04:25 74 03/23/17 04:00 98.6 20 115/105 99 03/22/17 20:30 Nasal Cannula Intake and Output 03/22/17 03/22/17 03/23/17 15:00 23:00 07:00 Intake Total 555 ml 480 ml Output Total 120 ml 20 ml Balance 435 ml -20 ml 480 ml Exam Constitutional: alert, oriented Eyes: nl sclera ENMT: mucosa pink and moist Respiratory: clear to auscultation Cardiovascular: regular rate and rhythm Gastrointestinal: non-tender, soft Extremities: other (no edema) 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: other (non focal) Results Result Diagram: 03/22/17 0835 03/22/17 2200 Results 24 hrs Laboratory Tests Test 03/22/17 06:35 03/22/17 07:26 03/22/17 08:35 03/22/17 11:43 Bedside Glucose 101 106 132 White Blood Count 5.8 Red Blood Count 3.49 L Hemoglobin 10.2 L Hematocrit 29.4 L Mean Corpuscular Volume 84.2 Mean Corpuscular Hemoglobin 29.2 Mean Corpuscular Hemoglobin Concent 34.7 Red Cell Distribution Width 16.2 H Platelet Count 68 #L Mean Platelet Volume 13.3 H Neutrophils % 85.7 H Lymphocytes % 4.7 L Monocytes % 7.8 Eosinophils % 0.9 Basophils % 0.0 Nucleated Red Blood Cells % 0.3 H Neutrophils # 5.0 Lymphocytes # 0.3 L Monocytes # 0.5 Eosinophils # 0.1 Basophils # 0.0 Nucleated Red Blood Cells # 0.0 Activated Partial Thromboplast Time 66.5 H Sodium Level 131 L Potassium Level 3.0 L Chloride Level 93 L Carbon Dioxide Level 26 Anion Gap 15 Blood Urea Nitrogen 63 H Creatinine 3.42 H Glucose Level 99 # Calcium Level 8.9 Total Bilirubin 0.5 Direct Bilirubin 0.00 Indirect Bilirubin 0.5 Aspartate Amino Transf (AST/SGOT) 431 H Alanine Aminotransferase (ALT/SGPT) 460 H Alkaline Phosphatase 27 L Total Protein 7.1 Albumin 4.7 Globulin 2.40 Albumin/Globulin Ratio 1.95 Test 03/22/17 12:48 03/22/17 17:03 03/22/17 20:12 03/22/17 22:00 Fibrinogen 407.0 D-Dimer 1768.49 H D-Dimer Comment Bedside Glucose 111 103 Potassium Level 3.9 Magnesium Level 2.0 Medications Medications Current Medications Ondansetron HCl (Zofran Inj) 4 mg Q6H PRN IV NAUSEA AND/OR VOMITING; Start at 17:00 Acetaminophen (Tylenol Tab) 650 mg Q6H PRN PO PAIN LEVEL 1-3 OR FEVER; Start at 17:00 Docusate Sodium (Colace) 100 mg Q12H PRN PO CONSTIPATION; Start 03/20/17 at 17: 00 Allopurinol (Zyloprim) 200 mg DAILY PO Last administered on 03/22/17 08:49; Admin Dose 200 MG; Start 03/21/17 at 09:00 Amlodipine Besylate (Norvasc) 5 mg DAILY PO ; Start 03/20/17 at 17:00 Clopidogrel Bisulfate (plaVIX) 75 mg DAILY PO Last administered on 03/22/17 08 :50; Admin Dose 75 MG; Start 03/21/17 at 09:00 Fenofibrate (Tricor) 145 mg DAILY PO Last administered on 03/22/17 08:49; Admin Dose 145 MG; Start 03/21/17 at 09:00 Levothyroxine Sodium (Synthroid) 50 mcg DAILY PO Last administered on 08:48; Admin Dose 50 MCG; Start 03/21/17 at 09:00 Metoprolol Succinate (Toprol Xl) 50 mg BID PO Last administered on 03/22/17 20 :19; Admin Dose 50 MG; Start 03/20/17 at 21:00 Isosorbide Dinitrate (Isordil) 20 mg BID PO Last administered on 03/22/17 20: 19; Admin Dose 20 MG; Start 03/20/17 at 21:00 Cyanocobalamin (Vitamin B12) 200 mcg DAILY PO Last administered on 03/22/17 08 :48; Admin Dose 200 MCG; Start 03/21/17 at 09:00 Cholecalciferol (Vitamin D) 2,000 unit DAILY PO Last administered on 03/22/17 08:48; Admin Dose 2,000 UNIT; Start 03/21/17 at 09:00 Pantoprazole (Protonix Tab) 40 mg DAILY@06 PO Last administered on 03/22/17 06 :36; Admin Dose 40 MG; Start 03/21/17 at 06:00 Fish Oil (Fish Oil) 1,000 mg BID PO Last administered on 03/22/17 20:18; Admin Dose 1,000 MG; Start 03/20/17 at 21:00 Miscellaneous Information 1 ea NOTE XX ; Start 03/20/17 at 17:30 Glucose (Glutose) 15 gm Q15M PRN PO DECREASED GLUCOSE; Start 03/20/17 at 17:30 Glucose (Glutose) 22.5 gm Q15M PRN PO DECREASED GLUCOSE; Start 03/20/17 at 17: 30 Dextrose (D50w Syringe) 25 ml Q15M PRN IV DECREASED GLUCOSE; Start 03/20/17 at 17:30 Dextrose (D50w Syringe) 50 ml Q15M PRN IV DECREASED GLUCOSE; Start 03/20/17 at 17:30 Glucagon (Glucagen) 1 mg Q15M PRN IM DECREASED GLUCOSE; Start 03/20/17 at 17:30 Glucose (Glutose) 15 gm Q15M PRN BUCCAL DECREASED GLUCOSE; Start 03/20/17 at 17 :30 Patient Own Medication 1 ea BID PO Last administered on 03/22/17 20:18; Admin Dose 1 EA; Start 03/20/17 at 21:00 Insulin Detemir (Levemir) 14 unit DAILY@20 SC Last administered on 03/22/17 20 :15; Admin Dose 14 UNIT; Start 03/20/17 at 22:06 Aspirin (Aspirin) 81 mg DAILY PO Last administered on 03/22/17 08:50; Admin Dose 81 MG; Start 03/21/17 at 13:30 Vancomycin HCl (Vanco Iv Per Pharmacy) PER PHARMACY DOSING NOTE XX ; Start 03/21 at 20:00 Multivit/Ca Carb/ B Cmplx/FA/Prenat (Nadiya-Ozzie) 1 tab DAILY PO Last administered on 03/22/17 08:49; Admin Dose 1 TAB; Start 03/22/17 at 09:00 Epoetin Magdiel (Epogen (Esrd)) 10,000 units MoWeFr@17 SC Last administered on 16:42; Admin Dose 10,000 UNITS; Start 03/22/17 at 17:00 Miscellaneous Information (* Miscellaneous Pharmacy Order) Hold all Metformin ... ONCE XX ; Start 03/22/17 at 19:30; Stop 03/24/17 at 19:29 Oxycodone/ Acetaminophen (Percocet (5/ 325)) 1 tab Q4H PRN PO REPORTED NON- CARDIAC PAIN 4-7; Start 03/22/17 at 19:30 Al Hydrox/Mg Hydrox/Simethicone (Mag-Al Plus) 30 ml Q4H PRN PO GASTROINTESTINAL UPSET; Start 03/22/17 at 19:30 Ondansetron HCl (Zofran Inj) 4 mg Q4H PRN IV NAUSEA AND/OR VOMITING; Start at 19:30 FAREED CASTELLANO MD Mar 23, 2017 06:37
[2017-03-23 06:55] LABS: HAAIG REFLEX REFLEX FILED
[2017-03-23] MEDS: INSULIN ASPART [NOVOLOG] 3 ML PEN SC SCH ×7 (07:35→21:00)
[2017-03-23] MEDS: AMLODIPINE 5 MG TAB PO SCH (09:00)
[2017-03-23] MEDS: METOPROLOL (XL) 50 MG TAB PO SCH ×2 (09:00→21:18)
[2017-03-23] MEDS: CLOPIDOGREL 75 MG TAB PO SCH (09:04)
[2017-03-23] MEDS: JAKAFI 5 MG PO SCH ×2 (09:04→21:18)
[2017-03-23] MEDS: FISH OIL 1,000 MG CAP PO SCH ×2 (09:04→21:17)
[2017-03-23] MEDS: MULTIVIT/CA CARB/B CMPLX/FA TAB PO SCH (09:04)
[2017-03-23] MEDS: ALLOPURINOL 100 MG TAB PO SCH (09:04)
[2017-03-23] MEDS: CYANOCOBALAMIN 100 MCG TAB PO SCH (09:04)
[2017-03-23] MEDS: ISOSORBIDE DINITRATE 20 MG TAB PO SCH ×2 (09:05→21:17)
[2017-03-23] MEDS: CHOLECALCIFEROL 2,000 UNIT CAP PO SCH (09:05)
[2017-03-23] MEDS: ASPIRIN 81 MG TAB PO SCH (09:05)
[2017-03-23] MEDS: FENOFIBRATE 145 MG TAB PO SCH (09:05)
[2017-03-23] MEDS: LEVOTHYROXINE 50 MCG TAB PO SCH (09:05)
--- NOTE | 2017-03-23 09:12 | OPR ---
Date/Time of Note Date/Time of Note DATE: 03/22/2017 TIME: 19:00 Operative Report Free Text/Dictation DATE OF OPERATION: 03/22/2017 PROCEDURE PERFORMED: 1. Left Heart Catheterization with Grafts 2. PCI of SVG graft to OM branch. 3. Intravascular Ultrasound study of Stent in SVG-OM Graft 4. Administration of moderate sedation PREOPERATIVE DIAGNOSES: 1. Non-ST elevation myocardial infarction. 2. Ischemic cardiomyopathy 3. History of multivessel coronary artery disease, status post previous coronary artery bypass, percutaneous coronary intervention. 4. Chronic kidney disease. POSTOPERATIVE DIAGNOSES: 1. Multivessel coronary artery disease, status post previous coronary artery bypass, percutaneous coronary intervention. 2. Successful PCI with INGA x1 to SVG-OM Graft REFERRING PHYSICIAN: Tristen Cooper MD HIDE AND SKIN FLESHING MACHINE OPERATOR: Fab Daigle MD HISTORY: Mr. Anurag Watson is an 81-year-old man with history of coronary artery disease, status post CABG in 1994, as well as PCI to the right coronary artery x2. Unfortunately, pt has had recurrent NSTEMI x 3 since 11/2016. Pt now presenting with acute on chronic systolic heart failure, NSTEMI, and worsening renal function necessitating dialysis. Pt with known severe disease of SVG-OM. Decision has been made to proceed with high risk PCI to SVG-OM graft after discussion with family and primary care physician given ICM, recurrent NSTEMI, and now permanent dialysis status. PROCEDURE DESCRIPTION: The patient was brought to the catheterization lab after informed consent obtaine. Right and left groins were prepped and draped in usual sterile fashion and anesthetized with 1% lidocaine solution. A 6- Latvian sheath was placed in the right common femoral artery using modified Seldinger technique under ultrasound guideance. Right femoral angiogram was obtained showing correct sheath placement in mid RCFA. Left heart catheterization was then performed. The patient was given 3000 units of IV heparin. A JL4 6 Fr diagnostic catheter was advanced to ascending aorta and used to engage LM, single image obtained given LM is occluded in mid segment. JL exchanged for a JR4, 6-Latvian diagnostic catheter was advanced to the ascending aorta and used to engage the right coronary artery. Cineangiograms were obtained. The JR catheter was withdrawn to aorta and used to engage SVG graft to diag and SVG graft to OM branch respectively, and angiograms were obtained. JR4 catheter was then advanced into the LV over guidewire and pressures were obtained. Given JENNIFER 1 flow in SVG-OM graft decision was made to proceed with PCI to SVG graft PCI DESCRIPTION: The patient was loaded with additional IV heparin. ACT was checked and confirmed to be in therapeutic range. Aspirin and clopidogrel were givne prior to arrival in chemistry lab instructor. A 6Fr JR4 guide catheter was used to engage the SVG graft to the OM branch. A 180 cm 0.014 inch Runthrough wire was then advanced to the distal OM branch. Intra-arterial nicardipine was then given through the SVG graft, given inability to place filter distal to tight lesion. An Euphora 2.5 x 12 mm compliant balloon was then advanced to the lesion and inflated to very high pressures 26 columba. Intra-arterial nicardipine was given prior to inflation. Balloon was exchanged for 3.5x12mm Euphora NC balloon which was advanced to lesion in mid SVG-OM graft and inflated to very high pressures 26 columba. Repeat angiograms showed improved JENNIFER 3 flow in vessel and it was felt that SVG graft would accommodate a stent. Balloon was then exchanged for a 3.5 x 16mm Synergy drug eluting stent which was deployed in mid SVG-OM graft at high pressures. The stent balloon was removed and exchanged for Euphora 4.0 x 6mm NC balloon which was inflated at high pressures for post dilation. Balloon removed and exchanged for Appy Pie IVUS catheter and IVUS was performed of SVG- OM stent showing good stent apposition and expansion. All catheters and wires were removed. There was no complication. Estimated blood loss was 50 mL. No specimens were obtained. Hemostasis was then obtained of the right femoral artery using Perclose closure device. FINDINGS: HEMODYNAMICS: Left ventricular end-diastolic pressures is 25 mmHg. No significant gradient LV to AO pullback. CORONARY ANATOMY: 1. Left main: Totally occluded in the mid segment. 2. Left circumflex artery is ostially occluded, was not engaged. 3. LAD also ostially occluded, not engaged. 4. Right coronary artery: Is a large dominant artery. There are patent stents noted in the proximal and mid segment of the artery. There is no significant in-stent restenosis. There is JENNIFER 3 flow throughout the vessel. There is mild diffuse disease throughout the vessel, 10 to 20%. Distally it bifurcates into a large right posterolateral system which has mild diffuse disease, 10%. There is also right PDA which has mild 10% to 20% disease. It gives rise to [id number] collaterals filling the proximal LAD as well as the Lcx system. 5. SVG graft to small diagonal branch is patent. It is a small graft without significant disease. 6. VALLE to LAD is not engaged 7. SVG graft to OM branch is a large ectatic vessel. There is JENNIFER 1 flow and 99% stenosis in the mid graft. Moderate Sedation: sleep lab technician nursing monitored patients respiratory and hemodynamic status while I administered moderate sedation. Total sedation time > 15 mins PCI DESCRIPTION: 1. SVG graft to OM. Prestenosis 99%, poststenosis 80%. JENNIFER 1 flow pre, JENNIFER 3 flow post, PCI with Synergy drug eluting stent 3.5 x 16 mm post dilated with 4.0 mm NC balloon. IVUS study showed good stent apposition expansion post PCI. SUMMARY: 1. Multivessel Coronary Artery Disease 2. Successful PCI to mid SVG-OM graft lesion with INGA x1 3. Moderately elevated LV filling pressures RECOMMENDATIONS: 1. Continue aspirin 81 mg p.o. daily indefinitely 2. Continue Plavix 75 mg p.o. daily x 12 months minimum 3. Maximal medical therapy for CAD, systolic heart failure FAB DAIGLE Mar 23, 2017 09:12
[2017-03-23 09:26] LABS: HEPATITIS B CORE ANTIBODY NEGATIVE (NEGATIVE)
--- NOTE | 2017-03-23 09:28 | PN ---
Date/Time of Note Date/Time of Note DATE: 03/23/17 TIME: 09:06 Assessment/Plan VTE Prophylaxis VTE Prophylaxis Intervention: SCD's Lines/Catheters [facility] Urinary Cath still in place: Yes Reason Cath still needed: skin wounds contaminated by urine Assessment/Plan Chief Complaint/Hosp Course Pt has had probable [place] with CHF. Has resulted in worsening renal function and is likely now to require chronic dialysis. Pt has myelofibrosis and has bee receiving JAKAFI and erythropoietin. These should be continued. Pt has had a significant drop in platelets since admit and plt ct on admit was lower that his usual counts of >200,000, Doubt that this represents a consumptive coagulopathy such as TTP or HUS. Cannot r/o DIC and will request fibrinogen and D-Dimer levels. Plt count was lower than his usual on admission but had dropped since and during that time the pt has been started on hepatin. Will request evaluation for HIT. Problems: (1) Arteriosclerosis of coronary artery in patient with history of myocardial infarction Status: Chronic Comment: Pt has undergone angioplasty and stent placement on 03/22. Statres that he feels less SOB. (2) Myelofibrosis Status: Chronic Comment: Review of peripheral slide does not suggest evidence of leukemic evolution. No evidence of consumptive coagulopathy--including DIC. Platelets are decreased but stable. Pt is off of heparin. Evaluation for HIT is in progress. (3) Acute on chronic renal failure (4) Type 2 diabetes mellitus without complications Status: Chronic Qualifiers: Diabetes mellitus termination clerk insulin use: with fci use Qualified Code : E11.9 - Type 2 diabetes mellitus without complication, with long-term current use of insulin Subjective 24 Hr Interval Summary Constitutional: improved, no complaints Eyes: no complaints ENT: no complaints Respiratory: other (Less SOB) Cardiovascular: no complaints Gastrointestinal: no complaints Genitourinary: no complaints Musculoskeletal: no complaints Skin: no complaints Neurologic: no complaints Endocrine: no complaints Lymphatic: no complaints Psychological: nl mood/affect, no complaints Exam/Review of Systems Vital Signs Vitals Vital Signs Date Time Temp Pulse Resp B/P Pulse Ox O2 Delivery O2 Flow Rate FiO2 03/23/17 08:28 74 03/23/17 08:00 97.4 26 112/72 100 Nasal Cannula 2.0 Intake and Output 03/22/17 03/22/17 03/23/17 15:00 23:00 07:00 Intake Total 555 ml 480 ml Output Total 120 ml 20 ml 950 ml Balance 435 ml -20 ml -470 ml Exam Constitutional: alert, oriented, well developed Psych: nl mood/affect, no complaints Head: atraumatic, normocephalic Eyes: EOMI, nl conjunctiva, nl lids, nl sclera ENMT: mucosa pink and moist, nl external ears & nose, nl lips & teeth Neck: supple Respiratory: other (Bibasilar rales, clear with cough) Cardiovascular: other (RSR, Sternotomy scar. Rt IJ diakysis cath.) Gastrointestinal: nl liver, spleen, non-tender, soft Musculoskeletal: nl extremities to inspection, nl gait and stance 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: REAMING PRESS OPERATOR II-XII intact, nl mental status, nl speech, nl strength Skin: other (Diffuse ecchy and purpura on arms) Lymph: nl lymph nodes Results Result Diagram: 03/23/17 0527 03/23/17 0527 Results 24 hrs Laboratory Tests Test 03/22/17 11:43 03/22/17 12:48 03/22/17 17:03 03/22/17 20:12 Bedside Glucose 132 111 103 Fibrinogen 407.0 D-Dimer 1768.49 H D-Dimer Comment Test 03/22/17 22:00 03/23/17 05:27 03/23/17 05:34 03/23/17 06:40 Potassium Level 3.9 3.8 Magnesium Level 2.0 White Blood Count 4.7 L Red Blood Count 3.52 L Hemoglobin 10.0 L Hematocrit 30.3 L Mean Corpuscular Volume 86.1 Mean Corpuscular Hemoglobin 28.4 L Mean Corpuscular Hemoglobin Concent 33.0 Red Cell Distribution Width 16.1 H Platelet Count 70 L Mean Platelet Volume 12.9 H Neutrophils % 77.6 H Lymphocytes % 8.6 L Monocytes % 11.0 Eosinophils % 1.5 Basophils % 0.0 Nucleated Red Blood Cells % 0.0 Neutrophils # 3.7 Lymphocytes # 0.4 L Monocytes # 0.5 Eosinophils # 0.1 Basophils # 0.0 Nucleated Red Blood Cells # 0.0 Sodium Level 136 Chloride Level 94 L Carbon Dioxide Level 23 Anion Gap 23 #H Blood Urea Nitrogen 72 H Creatinine 3.32 H Glucose Level 84 Calcium Level 9.3 Phosphorus Level 3.6 Total Bilirubin 0.3 Direct Bilirubin 0.00 Indirect Bilirubin 0.3 Aspartate Amino Transf (AST/SGOT) 277 H Alanine Aminotransferase (ALT/SGPT) 397 H Alkaline Phosphatase 27 L Total Protein 6.9 Albumin 4.4 Globulin 2.50 Albumin/Globulin Ratio 1.76 Random Vancomycin Level 12.6 Hepatitis B Surface Antigen Pending Hepatitis B Core Total Antibody Pending Hepatitis C Antibody Pending Test 03/23/17 08:16 Bedside Glucose 93 Medications Medications Current Medications Ondansetron HCl (Zofran Inj) 4 mg Q6H PRN IV NAUSEA AND/OR VOMITING; Start at 17:00 Acetaminophen (Tylenol Tab) 650 mg Q6H PRN PO PAIN LEVEL 1-3 OR FEVER; Start at 17:00 Docusate Sodium (Colace) 100 mg Q12H PRN PO CONSTIPATION; Start 03/20/17 at 17: 00 Allopurinol (Zyloprim) 200 mg DAILY PO Last administered on 03/22/17 08:49; Admin Dose 200 MG; Start 03/21/17 at 09:00 Amlodipine Besylate (Norvasc) 5 mg DAILY PO ; Start 03/20/17 at 17:00 Clopidogrel Bisulfate (plaVIX) 75 mg DAILY PO Last administered on 03/22/17 08 :50; Admin Dose 75 MG; Start 03/21/17 at 09:00 Fenofibrate (Tricor) 145 mg DAILY PO Last administered on 03/22/17 08:49; Admin Dose 145 MG; Start 03/21/17 at 09:00 Levothyroxine Sodium (Synthroid) 50 mcg DAILY PO Last administered on 08:48; Admin Dose 50 MCG; Start 03/21/17 at 09:00 Metoprolol Succinate (Toprol Xl) 50 mg BID PO Last administered on 03/22/17 20 :19; Admin Dose 50 MG; Start 03/20/17 at 21:00 Isosorbide Dinitrate (Isordil) 20 mg BID PO Last administered on 03/22/17 20: 19; Admin Dose 20 MG; Start 03/20/17 at 21:00 Cyanocobalamin (Vitamin B12) 200 mcg DAILY PO Last administered on 03/22/17 08 :48; Admin Dose 200 MCG; Start 03/21/17 at 09:00 Cholecalciferol (Vitamin D) 2,000 unit DAILY PO Last administered on 03/22/17 08:48; Admin Dose 2,000 UNIT; Start 03/21/17 at 09:00 Pantoprazole (Protonix Tab) 40 mg DAILY@06 PO Last administered on 03/23/17 06: 29; Admin Dose 40 MG; Start 03/21/17 at 06:00 Fish Oil (Fish Oil) 1,000 mg BID PO Last administered on 03/22/17 20:18; Admin Dose 1,000 MG; Start 03/20/17 at 21:00 Miscellaneous Information 1 ea NOTE XX ; Start 03/20/17 at 17:30 Glucose (Glutose) 15 gm Q15M PRN PO DECREASED GLUCOSE; Start 03/20/17 at 17:30 Glucose (Glutose) 22.5 gm Q15M PRN PO DECREASED GLUCOSE; Start 03/20/17 at 17: 30 Dextrose (D50w Syringe) 25 ml Q15M PRN IV DECREASED GLUCOSE; Start 03/20/17 at 17:30 Dextrose (D50w Syringe) 50 ml Q15M PRN IV DECREASED GLUCOSE; Start 03/20/17 at 17:30 Glucagon (Glucagen) 1 mg Q15M PRN IM DECREASED GLUCOSE; Start 03/20/17 at 17:30 Glucose (Glutose) 15 gm Q15M PRN BUCCAL DECREASED GLUCOSE; Start 03/20/17 at 17 :30 Patient Own Medication 1 ea BID PO Last administered on 03/22/17 20:18; Admin Dose 1 EA; Start 03/20/17 at 21:00 Insulin Detemir (Levemir) 14 unit DAILY@20 SC Last administered on 03/22/17 20 :15; Admin Dose 14 UNIT; Start 03/20/17 at 22:06 Aspirin (Aspirin) 81 mg DAILY PO Last administered on 03/22/17 08:50; Admin Dose 81 MG; Start 03/21/17 at 13:30 Multivit/Ca Carb/ B Cmplx/FA/Prenat (Nadiya-Ozzie) 1 tab DAILY PO Last administered on 03/22/17 08:49; Admin Dose 1 TAB; Start 03/22/17 at 09:00 Epoetin Magdiel (Epogen (Esrd)) 10,000 units MoWeFr@17 SC Last administered on 6/ 30/17at 16:42; Admin Dose 10,000 UNITS; Start 03/22/17 at 17:00 Miscellaneous Information (* Miscellaneous Pharmacy Order) Hold all Metformin ... ONCE XX ; Start 03/22/17 at 19:30; Stop 03/24/17 at 19:29 Oxycodone/ Acetaminophen (Percocet (5/ 325)) 1 tab Q4H PRN PO REPORTED NON- CARDIAC PAIN 4-7; Start 03/22/17 at 19:30 Al Hydrox/Mg Hydrox/Simethicone (Mag-Al Plus) 30 ml Q4H PRN PO GASTROINTESTINAL UPSET; Start 03/22/17 at 19:30 Ondansetron HCl (Zofran Inj) 4 mg Q4H PRN IV NAUSEA AND/OR VOMITING; Start at 19:30 Procedures Procedures Peripheral slide reviewed. No RBC fragmentation. Multiple races of RBC's due to recent RBC transfusions. No immature WBC's or nucleated RBC's. Platelets moderately decreased, but nl in appearance. Copies To: CC: JULIANNE ESTRELLA MD, STANLEY H MD Mar 23, 2017 09:18
--- NOTE | 2017-03-23 10:45 | PN ---
Date/Time of Note Date/Time of Note DATE: 03/23/17 TIME: 10:42 Assessment/Plan VTE Prophylaxis VTE Prophylaxis Intervention: other Lines/Catheters IV Catheter Type (from [facility]): Urinary Cath still in place: No Assessment/Plan Assessment/Plan 1. Acute CO, cardiology intervention appreciated 2. CKD, now on chronic hemodialysis, will speak to [facility] re-permanent access this week, next HD Saturday 3. Myelofibrosis with reduced platelet ct, observing, heparin was stopped 4. Anemia, stable 5. ID eval noted and appreciated 6. DM, sugar control is acceptable Subjective 24 Hr Interval Summary Respiratory: No cough, No shortness of breath Cardiovascular: No chest pain Gastrointestinal: no complaints Genitourinary: no complaints Exam/Review of Systems Vital Signs Vitals Vital Signs Date Time Temp Pulse Resp B/P Pulse Ox O2 Delivery O2 Flow Rate FiO2 03/23/17 08:28 74 03/23/17 08:00 97.4 26 112/72 100 Nasal Cannula 2.0 Intake and Output 03/22/17 03/22/17 03/23/17 15:00 23:00 07:00 Intake Total 555 ml 480 ml Output Total 120 ml 20 ml 950 ml Balance 435 ml -20 ml -470 ml Exam Neck: non-tender, No jvd Respiratory: diminished breath sounds, No crackles/rales Cardiovascular: regular rate and rhythm Gastrointestinal: soft Extremities: No edema (and no calf tend) Results Result Diagram: 03/23/1727 03/23/17526 Results 24 hrs Laboratory Tests Test 03/22/17 11:43 03/22/17 12:48 03/22/17 17:03 03/22/17 20:12 Bedside Glucose 132 111 103 Fibrinogen 407.0 D-Dimer 1768.49 H D-Dimer Comment Test 03/22/17 22:00 03/23/17 05:27 03/23/17 05:34 03/23/17 06:40 Potassium Level 3.9 3.8 Magnesium Level 2.0 White Blood Count 4.7 L Red Blood Count 3.52 L Hemoglobin 10.0 L Hematocrit 30.3 L Mean Corpuscular Volume 86.1 Mean Corpuscular Hemoglobin 28.4 L Mean Corpuscular Hemoglobin Concent 33.0 Red Cell Distribution Width 16.1 H Platelet Count 70 L Mean Platelet Volume 12.9 H Neutrophils % 77.6 H Lymphocytes % 8.6 L Monocytes % 11.0 Eosinophils % 1.5 Basophils % 0.0 Nucleated Red Blood Cells % 0.0 Neutrophils # 3.7 Lymphocytes # 0.4 L Monocytes # 0.5 Eosinophils # 0.1 Basophils # 0.0 Nucleated Red Blood Cells # 0.0 Sodium Level 136 Chloride Level 94 L Carbon Dioxide Level 23 Anion Gap 23 #H Blood Urea Nitrogen 72 H Creatinine 3.32 H Glucose Level 84 Calcium Level 9.3 Phosphorus Level 3.6 Total Bilirubin 0.3 Direct Bilirubin 0.00 Indirect Bilirubin 0.3 Aspartate Amino Transf (AST/SGOT) 277 H Alanine Aminotransferase (ALT/SGPT) 397 H Alkaline Phosphatase 27 L Total Protein 6.9 Albumin 4.4 Globulin 2.50 Albumin/Globulin Ratio 1.76 Random Vancomycin Level 12.6 Hepatitis B Surface Antigen NEGATIVE Hepatitis B Core Total Antibody NEGATIVE Hepatitis C Antibody NEGATIVE Test 03/23/17 08:16 Bedside Glucose 93 Medications Medications Current Medications Ondansetron HCl (Zofran Inj) 4 mg Q6H PRN IV NAUSEA AND/OR VOMITING; Start at 17:00 Acetaminophen (Tylenol Tab) 650 mg Q6H PRN PO PAIN LEVEL 1-3 OR FEVER; Start at 17:00 Docusate Sodium (Colace) 100 mg Q12H PRN PO CONSTIPATION; Start 03/20/17 at 17: 00 Allopurinol (Zyloprim) 200 mg DAILY PO Last administered on 03/23/17 09:04; Admin Dose 200 MG; Start 03/21/17 at 09:00 Amlodipine Besylate (Norvasc) 5 mg DAILY PO ; Start 03/20/17 at 17:00 Clopidogrel Bisulfate (plaVIX) 75 mg DAILY PO Last administered on 03/23/17 09: 04; Admin Dose 75 MG; Start 03/21/17 at 09:00 Fenofibrate (Tricor) 145 mg DAILY PO Last administered on 03/23/17 09:05; Admin Dose 145 MG; Start 03/21/17 at 09:00 Levothyroxine Sodium (Synthroid) 50 mcg DAILY PO Last administered on 03/23/17 09:05; Admin Dose 50 MCG; Start 03/21/17 at 09:00 Metoprolol Succinate (Toprol Xl) 50 mg BID PO Last administered on 03/22/17 20 :19; Admin Dose 50 MG; Start 03/20/17 at 21:00 Isosorbide Dinitrate (Isordil) 20 mg BID PO Last administered on 03/23/17 09:05 ; Admin Dose 20 MG; Start 03/20/17 at 21:00 Cyanocobalamin (Vitamin B12) 200 mcg DAILY PO Last administered on 03/23/17 09: 04; Admin Dose 200 MCG; Start 03/21/17 at 09:00 Cholecalciferol (Vitamin D) 2,000 unit DAILY PO Last administered on 03/23/17 09:05; Admin Dose 2,000 UNIT; Start 03/21/17 at 09:00 Pantoprazole (Protonix Tab) 40 mg DAILY@06 PO Last administered on 03/23/17 06: 29; Admin Dose 40 MG; Start 03/21/17 at 06:00 Fish Oil (Fish Oil) 1,000 mg BID PO Last administered on 03/23/17 09:04; Admin Dose 1,000 MG; Start 03/20/17 at 21:00 Miscellaneous Information 1 ea NOTE XX ; Start 03/20/17 at 17:30 Glucose (Glutose) 15 gm Q15M PRN PO DECREASED GLUCOSE; Start 03/20/17 at 17:30 Glucose (Glutose) 22.5 gm Q15M PRN PO DECREASED GLUCOSE; Start 03/20/17 at 17: 30 Dextrose (D50w Syringe) 25 ml Q15M PRN IV DECREASED GLUCOSE; Start 03/20/17 at 17:30 Dextrose (D50w Syringe) 50 ml Q15M PRN IV DECREASED GLUCOSE; Start 03/20/17 at 17:30 Glucagon (Glucagen) 1 mg Q15M PRN IM DECREASED GLUCOSE; Start 03/20/17 at 17:30 Glucose (Glutose) 15 gm Q15M PRN BUCCAL DECREASED GLUCOSE; Start 03/20/17 at 17 :30 Patient Own Medication 1 ea BID PO Last administered on 03/23/17 09:04; Admin Dose 1 EA; Start 03/20/17 at 21:00 Aspirin (Aspirin) 81 mg DAILY PO Last administered on 03/23/17 09:05; Admin Dose 81 MG; Start 03/21/17 at 13:30 Multivit/Ca Carb/ B Cmplx/FA/Prenat (Nadiya-Ozzie) 1 tab DAILY PO Last administered on 03/23/17 09:04; Admin Dose 1 TAB; Start 03/22/17 at 09:00 Epoetin Magdiel (Epogen (Esrd)) 10,000 units MoWeFr@17 SC Last administered on t 16:42; Admin Dose 10,000 UNITS; Start 03/22/17 at 17:00 Miscellaneous Information (* Miscellaneous Pharmacy Order) Hold all Metformin ... ONCE XX ; Start 03/22/17 at 19:30; Stop 03/24/17 at 19:29 Oxycodone/ Acetaminophen (Percocet (5/ 325)) 1 tab Q4H PRN PO REPORTED NON- CARDIAC PAIN 4-7; Start 03/22/17 at 19:30 Al Hydrox/Mg Hydrox/Simethicone (Mag-Al Plus) 30 ml Q4H PRN PO GASTROINTESTINAL UPSET; Start 03/22/17 at 19:30 Ondansetron HCl (Zofran Inj) 4 mg Q4H PRN IV NAUSEA AND/OR VOMITING; Start at 19:30 Insulin Detemir (Levemir) 12 unit DAILY@20 SC ; Start 03/23/17 at 20:00 JULIANNE ESTRELLA MD Mar 23, 2017 10:45
--- NOTE | 2017-03-23 12:01 | CONS ---
Date/Time of Note Date/Time of Note DATE: 03/23/17 TIME: 11:58 Assessment/Plan Assessment/Plan Problems: (1) Type 2 diabetes mellitus without complications Status: Chronic Comment: Improved glycemic control. FBG < 100 mg/dL this am. Will reduce levemir by 2 units from 14 to 12 units qhs. Continue Novolog 6 units sq qac. Will follow. 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), no complaints Detailed Summary Respiratory: no complaints Cardiovascular: no complaints Gastrointestinal: no complaints Genitourinary: no complaints Musculoskeletal: no complaints Neurologic: no complaints Exam/Review of Systems Vital Signs Vitals VS - Last 72 Hours, by Label Date Time Temp Pulse Resp B/P Pulse Ox O2 Delivery O2 Flow Rate FiO2 03/23/17 11:00 78 24 106/73 100 2.0 03/23/17 10:00 83 28 117/65 99 2.0 03/23/17 09:00 76 24 116/70 100 2.0 03/23/17 08:28 74 03/23/17 08:00 97.4 73 26 112/72 100 Nasal Cannula 2.0 03/23/17 07:00 73 25 122/70 90 03/23/17 06:00 72 20 114/68 100 03/23/17 05:44 2.0 03/23/17 05:00 72 16 114/70 100 03/23/17 04:25 74 03/23/17 04:00 98.6 76 20 115/105 99 03/23/17 03:00 76 26 118/71 97 03/23/17 02:00 74 20 105/59 100 03/23/17 01:00 75 19 102/55 99 03/23/17 00:09 75 03/23/17 00:00 98.0 75 20 113/71 100 03/22/17 23:59 100 2.0 03/22/17 21:00 80 23 110/64 99 03/22/17 20:30 78 21 108/66 96 Nasal Cannula 2.0 03/22/17 20:15 79 24 122/63 95 Nasal Cannula 2.0 03/22/17 20:04 81 03/22/17 20:00 83 22 120/71 97 Nasal Cannula 2.0 03/22/17 20:00 Nasal Cannula 2.0 03/22/17 19:45 81 23 128/66 99 Nasal Cannula 2.0 03/22/17 19:39 97.9 89 20 126/70 98 Nasal Cannula 2.0 03/22/17 17:00 119 28 113/78 100 03/22/17 16:00 78 03/22/17 16:00 98.2 85 26 104/63 99 03/22/17 15:00 119 27 104/68 97 03/22/17 14:00 108 28 102/67 97 03/22/17 13:01 3.0 03/22/17 13:00 118 32 103/76 99 03/22/17 12:00 98.5 114 23 98/72 99 Nasal Cannula 03/22/17 12:00 119 03/22/17 11:00 115 21 99 03/22/17 10:00 111 29 109/74 100 Nasal Cannula 03/22/17 09:00 115 23 119/69 93 Nasal Cannula 03/22/17 08:00 Nasal Cannula 03/22/17 08:00 97 23 92/67 97 Nasal Cannula 03/22/17 08:00 113 03/22/17 07:30 98.6 110 23 109/72 97 Nasal Cannula 3.0 03/22/17 07:00 112 22 116/78 100 03/22/17 04:00 110 03/22/17 04:00 98.5 103 23 101/73 100 Nasal Cannula 3.0 03/22/17 03:47 97 3.0 03/22/17 03:30 110 28 110/78 100 Nasal Cannula 3.0 03/22/17 03:00 110 24 107/75 95 Nasal Cannula 3.0 03/22/17 02:30 114 32 85/64 98 Nasal Cannula 3.0 03/22/17 02:00 118 32 98/61 99 Nasal Cannula 3.0 03/22/17 01:30 105 28 109/78 97 Nasal Cannula 3.0 03/22/17 01:00 110 26 105/75 98 Nasal Cannula 3.0 03/22/17 00:30 115 17 100/65 98 Nasal Cannula 3.0 03/22/17 00:00 110 03/22/17 00:00 107 31 100/74 100 Nasal Cannula 3.0 03/21/17 23:30 108 32 114/70 100 Nasal Cannula 3.0 03/21/17 23:00 108 27 109/65 99 Nasal Cannula 3.0 03/21/17 22:30 117 33 105/65 98 Nasal Cannula 3.0 03/21/17 22:00 119 29 96/64 97 Nasal Cannula 3.0 03/21/17 21:30 112 30 101/67 99 Nasal Cannula 3.0 03/21/17 21:00 114 20 90/53 99 Nasal Cannula 3.0 03/21/17 20:30 117 24 101/69 98 Nasal Cannula 3.0 03/21/17 20:13 98 3.0 03/21/17 20:00 108 03/21/17 20:00 Nasal Cannula 3.0 03/21/17 20:00 98.6 99 25 84/61 98 Nasal Cannula 3.0 03/21/17 19:30 115 28 103/74 97 Nasal Cannula 3.0 03/21/17 19:00 121 28 99/71 97 Nasal Cannula 3.0 03/21/17 18:00 120 37 105/81 99 Nasal Cannula 03/21/17 17:32 98 24 03/21/17 17:30 87 03/21/17 17:15 96 03/21/17 17:00 75 03/21/17 17:00 82 27 99 03/21/17 16:45 77 31 100 03/21/17 16:45 75 03/21/17 16:30 78 03/21/17 16:30 75 26 96/54 94 Nasal Cannula 03/21/17 16:15 75 30 100 Nasal Cannula 03/21/17 16:15 73 03/21/17 16:00 73 03/21/17 16:00 4 03/21/17 16:00 98.4 73 27 111/58 100 Nasal Cannula 03/21/17 15:45 73 03/21/17 15:30 72 03/21/17 15:15 74 03/21/17 15:00 73 03/21/17 15:00 71 24 100/55 100 Nasal Cannula 03/21/17 14:45 76 03/21/17 14:30 70 03/21/17 14:30 70 21 03/21/17 14:00 65 25 98/51 99 Nasal Cannula 03/21/17 13:00 69 28 122/69 100 Nasal Cannula 03/21/17 12:00 98.6 69 22 94/66 97 Nasal Cannula 03/21/17 12:00 68 03/21/17 11:34 99 4.0 03/21/17 11:00 68 21 112/63 100 03/21/17 10:00 68 26 121/68 92 03/21/17 09:30 70 21 117/74 96 03/21/17 09:00 67 14 106/68 100 Nasal Cannula 03/21/17 08:30 65 22 97/57 03/21/17 08:00 Nasal Cannula 4.0 03/21/17 08:00 98.4 67 20 119/63 100 Nasal Cannula 03/21/17 08:00 66 03/21/17 07:30 67 25 114/68 100 03/21/17 07:00 67 23 101/63 100 03/21/17 06:00 69 23 127/70 100 Nasal Cannula 03/21/17 05:30 23 125/73 Nasal Cannula 03/21/17 05:00 70 23 114/67 100 Nasal Cannula 03/21/17 04:30 69 24 117/65 100 Nasal Cannula 03/21/17 04:10 98 4.0 03/21/17 04:00 83 03/21/17 04:00 98.7 81 23 111/66 100 Nasal Cannula 03/21/17 03:30 71 24 112/72 99 Nasal Cannula 03/21/17 03:00 63 25 109/78 97 Nasal Cannula 03/21/17 02:30 70 24 125/74 Nasal Cannula 03/21/17 02:00 66 27 105/66 97 Nasal Cannula 03/21/17 01:30 83 28 99/62 96 Nasal Cannula 03/21/17 01:00 70 25 119/64 Nasal Cannula 03/21/17 00:30 74 29 111/59 96 Nasal Cannula 03/21/17 00:00 Nasal Cannula 4.0 03/21/17 00:00 70 03/21/17 00:00 97.8 80 29 123/66 100 Nasal Cannula 03/20/17 23:56 100 15.0 03/20/17 23:51 78 03/20/17 23:50 77 28 03/20/17 23:30 75 21 114/95 100 Nasal Cannula 03/20/17 23:30 76 03/20/17 23:15 71 03/20/17 23:00 68 30 119/75 100 Nasal Cannula 03/20/17 23:00 68 03/20/17 22:45 89 03/20/17 22:30 86 30 119/87 100 Nasal Cannula 03/20/17 22:30 89 03/20/17 22:15 85 34 118/78 92 Nasal Cannula 03/20/17 22:15 83 03/20/17 22:00 82 24 117/83 99 Nasal Cannula 03/20/17 21:55 71 03/20/17 21:45 74 28 137/105 100 Nasal Cannula 03/20/17 21:40 71 03/20/17 21:30 71 29 123/85 100 Nasal Cannula 03/20/17 21:20 73 03/20/17 21:15 70 28 124/83 100 Nasal Cannula 03/20/17 21:05 73 03/20/17 21:00 Non Rebreather 15.0 03/20/17 21:00 70 35 141/85 97 Nasal Cannula 03/20/17 20:50 70 29 03/20/17 20:50 70 03/20/17 20:30 70 35 124/68 98 Nasal Cannula 03/20/17 20:16 97.8 71 33 138/79 100 Nasal Cannula 03/20/17 20:00 71 03/20/17 19:44 70 03/20/17 16:30 Simple Mask 10.0 03/20/17 16:15 97.4 67 22 121/68 91 Nasal Cannula 03/20/17 16:00 67 Vital Signs Date Time Temp Pulse Resp B/P Pulse Ox O2 Delivery O2 Flow Rate FiO2 03/23/17 11:00 78 24 106/73 100 2.0 03/23/17 08:00 97.4 Nasal Cannula Intake and Output 03/22/17 03/22/17 03/23/17 15:00 23:00 07:00 Intake Total 555 ml 480 ml Output Total 120 ml 20 ml 950 ml Balance 435 ml -20 ml -470 ml Exam Constitutional: alert, frail, oriented Psych: nl mood/affect, no complaints Respiratory: clear to auscultation, normal air movement Cardiovascular: nl pulses, regular rate and rhythm, No edema, No murmurs/extra sounds, No rub Gastrointestinal: bowel sounds, nl liver, spleen, non-tender, soft, No mass, No rebound or guarding Musculoskeletal: nl extremities to inspection Extremities: normal pulses, No clubbing, No cyanosis, No edema 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: ELECTRIC MOTOR TESTER II-XII intact, nl mental status, nl speech, nl strength Additional Comments Bedside Glucose - 72 Hours Test 03/20/17 16:55 03/20/17 21:09 03/20/17 22:39 03/21/17 06:40 Bedside Glucose 232mg/dL (70-220) H 202mg/dL (70-220) 160mg/dL (70-220) 155mg/dL (70-220) Test 03/21/17 12:26 03/21/17 17:30 03/21/17 20:34 03/22/17 06:35 Bedside Glucose 166mg/dL (70-220) 169mg/dL (70-220) 217mg/dL (70-220) 101mg/dL (70-220) Test 03/22/17 07:26 03/22/17 11:43 03/22/17 17:03 03/22/17 20:12 Bedside Glucose 106mg/dL (70-220) 132mg/dL (70-220) 111mg/dL (70-220) 103mg/dL (70-220) Test 03/23/17 08:16 Bedside Glucose 93mg/dL (70-220) Results Result Diagram: 03/23/17 0527 03/23/17 0527 Results 24 hrs Laboratory Tests Test 03/22/17 12:48 03/22/17 17:03 03/22/17 20:12 03/22/17 22:00 Fibrinogen 407.0 D-Dimer 1768.49 H D-Dimer Comment Bedside Glucose 111 103 Potassium Level 3.9 Magnesium Level 2.0 Test 03/23/17 05:27 03/23/17 05:34 03/23/17 06:40 03/23/17 08:16 White Blood Count 4.7 L Red Blood Count 3.52 L Hemoglobin 10.0 L Hematocrit 30.3 L Mean Corpuscular Volume 86.1 Mean Corpuscular Hemoglobin 28.4 L Mean Corpuscular Hemoglobin Concent 33.0 Red Cell Distribution Width 16.1 H Platelet Count 70 L Mean Platelet Volume 12.9 H Neutrophils % 77.6 H Lymphocytes % 8.6 L Monocytes % 11.0 Eosinophils % 1.5 Basophils % 0.0 Nucleated Red Blood Cells % 0.0 Neutrophils # 3.7 Lymphocytes # 0.4 L Monocytes # 0.5 Eosinophils # 0.1 Basophils # 0.0 Nucleated Red Blood Cells # 0.0 Sodium Level 136 Potassium Level 3.8 Chloride Level 94 L Carbon Dioxide Level 23 Anion Gap 23 #H Blood Urea Nitrogen 72 H Creatinine 3.32 H Glucose Level 84 Calcium Level 9.3 Phosphorus Level 3.6 Total Bilirubin 0.3 Direct Bilirubin 0.00 Indirect Bilirubin 0.3 Aspartate Amino Transf (AST/SGOT) 277 H Alanine Aminotransferase (ALT/SGPT) 397 H Alkaline Phosphatase 27 L Total Protein 6.9 Albumin 4.4 Globulin 2.50 Albumin/Globulin Ratio 1.76 Random Vancomycin Level 12.6 Hepatitis B Surface Antigen NEGATIVE Hepatitis B Core Total Antibody NEGATIVE Hepatitis C Antibody NEGATIVE Bedside Glucose 93 Medications Medications Current Medications Ondansetron HCl (Zofran Inj) 4 mg Q6H PRN IV NAUSEA AND/OR VOMITING; Start at 17:00 Acetaminophen (Tylenol Tab) 650 mg Q6H PRN PO PAIN LEVEL 1-3 OR FEVER; Start at 17:00 Docusate Sodium (Colace) 100 mg Q12H PRN PO CONSTIPATION; Start 03/20/17 at 17: 00 Allopurinol (Zyloprim) 200 mg DAILY PO Last administered on 03/23/17 09:04; Admin Dose 200 MG; Start 03/21/17 at 09:00 Amlodipine Besylate (Norvasc) 5 mg DAILY PO ; Start 03/20/17 at 17:00 Clopidogrel Bisulfate (plaVIX) 75 mg DAILY PO Last administered on 03/23/17 09: 04; Admin Dose 75 MG; Start 03/21/17 at 09:00 Fenofibrate (Tricor) 145 mg DAILY PO Last administered on 03/23/17 09:05; Admin Dose 145 MG; Start 03/21/17 at 09:00 Levothyroxine Sodium (Synthroid) 50 mcg DAILY PO Last administered on 03/23/17 09:05; Admin Dose 50 MCG; Start 03/21/17 at 09:00 Metoprolol Succinate (Toprol Xl) 50 mg BID PO Last administered on 03/22/17 20 :19; Admin Dose 50 MG; Start 03/20/17 at 21:00 Isosorbide Dinitrate (Isordil) 20 mg BID PO Last administered on 03/23/17 09:05 ; Admin Dose 20 MG; Start 03/20/17 at 21:00 Cyanocobalamin (Vitamin B12) 200 mcg DAILY PO Last administered on 03/23/17 09: 04; Admin Dose 200 MCG; Start 03/21/17 at 09:00 Cholecalciferol (Vitamin D) 2,000 unit DAILY PO Last administered on 03/23/17 09:05; Admin Dose 2,000 UNIT; Start 03/21/17 at 09:00 Pantoprazole (Protonix Tab) 40 mg DAILY@06 PO Last administered on 03/23/17 06: 29; Admin Dose 40 MG; Start 03/21/17 at 06:00 Fish Oil (Fish Oil) 1,000 mg BID PO Last administered on 03/23/17 09:04; Admin Dose 1,000 MG; Start 03/20/17 at 21:00 Miscellaneous Information 1 ea NOTE XX ; Start 03/20/17 at 17:30 Glucose (Glutose) 15 gm Q15M PRN PO DECREASED GLUCOSE; Start 03/20/17 at 17:30 Glucose (Glutose) 22.5 gm Q15M PRN PO DECREASED GLUCOSE; Start 03/20/17 at 17: 30 Dextrose (D50w Syringe) 25 ml Q15M PRN IV DECREASED GLUCOSE; Start 03/20/17 at 17:30 Dextrose (D50w Syringe) 50 ml Q15M PRN IV DECREASED GLUCOSE; Start 03/20/17 at 17:30 Glucagon (Glucagen) 1 mg Q15M PRN IM DECREASED GLUCOSE; Start 03/20/17 at 17:30 Glucose (Glutose) 15 gm Q15M PRN BUCCAL DECREASED GLUCOSE; Start 03/20/17 at 17 :30 Patient Own Medication 1 ea BID PO Last administered on 03/23/17 09:04; Admin Dose 1 EA; Start 03/20/17 at 21:00 Aspirin (Aspirin) 81 mg DAILY PO Last administered on 03/23/17 09:05; Admin Dose 81 MG; Start 03/21/17 at 13:30 Multivit/Ca Carb/ B Cmplx/FA/Prenat (Nadiya-Ozzie) 1 tab DAILY PO Last administered on 03/23/17 09:04; Admin Dose 1 TAB; Start 03/22/17 at 09:00 Epoetin Magdiel (Epogen (Esrd)) 10,000 units MoWeFr@17 SC Last administered on 16:42; Admin Dose 10,000 UNITS; Start 03/22/17 at 17:00 Miscellaneous Information (* Miscellaneous Pharmacy Order) Hold all Metformin ... ONCE XX ; Start 03/22/17 at 19:30; Stop 03/24/17 at 19:29 Oxycodone/ Acetaminophen (Percocet (5/ 325)) 1 tab Q4H PRN PO REPORTED NON- CARDIAC PAIN 4-7; Start 03/22/17 at 19:30 Al Hydrox/Mg Hydrox/Simethicone (Mag-Al Plus) 30 ml Q4H PRN PO GASTROINTESTINAL UPSET; Start 03/22/17 at 19:30 Ondansetron HCl (Zofran Inj) 4 mg Q4H PRN IV NAUSEA AND/OR VOMITING; Start at 19:30 Insulin Detemir (Levemir) 12 unit DAILY@20 SC ; Start 03/23/17 at 20:00 JACQUES KATZ MD Mar 23, 2017 12:00
[2017-03-23] MEDS: DOCUSATE SODIUM 100 MG CAP PO PRN (12:18)
--- NOTE | 2017-03-23 15:30 | CONS ---
Date/Time of Note Date/Time of Note DATE: 03/23/17 TIME: 15:26 Consult Date/Type/Reason Admit Date/Time Mar 20, 2017 at 15:32 Initial Consult Date 03/23/17 Type of Consultation: Cardiology Ordering Provider: JULIANNE ESTRELLA MD Subjective Doing better without any CP or SOB. Objective Vital Signs Date Time Temp Pulse Resp B/P Pulse Ox O2 Delivery O2 Flow Rate FiO2 03/23/17 13:00 80 21 117/63 100 2.0 03/23/17 12:00 97.8 Nasal Cannula Intake and Output 03/22/17 03/22/17 03/23/17 15:00 23:00 07:00 Intake Total 555 ml 480 ml Output Total 120 ml 20 ml 950 ml Balance 435 ml -20 ml -470 ml Exam General: doing well without distress HEENT: NCAT, EOMI, OP cleaqr Neck: minimal JVD Chest: CTA with minimal rhonci Cardiac: RRR no S3, 09/28 HSM Abdomen: soft NDNT no HSM Ext : no edema Results/Medications Result Diagram: 03/23/1727 03/23/17 0527 Results 24 hrs Laboratory Tests Test 03/22/17 17:03 03/22/17 20:12 03/22/17 22:00 03/23/17 05:27 Bedside Glucose 111 103 Potassium Level 3.9 3.8 Magnesium Level 2.0 White Blood Count 4.7 L Red Blood Count 3.52 L Hemoglobin 10.0 L Hematocrit 30.3 L Mean Corpuscular Volume 86.1 Mean Corpuscular Hemoglobin 28.4 L Mean Corpuscular Hemoglobin Concent 33.0 Red Cell Distribution Width 16.1 H Platelet Count 70 L Mean Platelet Volume 12.9 H Neutrophils % 77.6 H Lymphocytes % 8.6 L Monocytes % 11.0 Eosinophils % 1.5 Basophils % 0.0 Nucleated Red Blood Cells % 0.0 Neutrophils # 3.7 Lymphocytes # 0.4 L Monocytes # 0.5 Eosinophils # 0.1 Basophils # 0.0 Nucleated Red Blood Cells # 0.0 Sodium Level 136 Chloride Level 94 L Carbon Dioxide Level 23 Anion Gap 23 #H Blood Urea Nitrogen 72 H Creatinine 3.32 H Glucose Level 84 Calcium Level 9.3 Phosphorus Level 3.6 Total Bilirubin 0.3 Direct Bilirubin 0.00 Indirect Bilirubin 0.3 Aspartate Amino Transf (AST/SGOT) 277 H Alanine Aminotransferase (ALT/SGPT) 397 H Alkaline Phosphatase 27 L Total Protein 6.9 Albumin 4.4 Globulin 2.50 Albumin/Globulin Ratio 1.76 Test 03/23/17 05:34 03/23/17 06:40 03/23/17 08:16 03/23/17 12:02 Random Vancomycin Level 12.6 Hepatitis B Surface Antigen NEGATIVE Hepatitis B Core Total Antibody NEGATIVE Hepatitis C Antibody NEGATIVE Bedside Glucose 93 147 Medications Current Medications Ondansetron HCl (Zofran Inj) 4 mg Q6H PRN IV NAUSEA AND/OR VOMITING; Start at 17:00 Acetaminophen (Tylenol Tab) 650 mg Q6H PRN PO PAIN LEVEL 1-3 OR FEVER; Start at 17:00 Docusate Sodium (Colace) 100 mg Q12H PRN PO CONSTIPATION Last administered on 12:18; Admin Dose 100 MG; Start 03/20/17 at 17:00 Allopurinol (Zyloprim) 200 mg DAILY PO Last administered on 03/23/17 09:04; Admin Dose 200 MG; Start 03/21/17 at 09:00 Amlodipine Besylate (Norvasc) 5 mg DAILY PO ; Start 03/20/17 at 17:00 Clopidogrel Bisulfate (plaVIX) 75 mg DAILY PO Last administered on 03/23/17 09: 04; Admin Dose 75 MG; Start 03/21/17 at 09:00 Fenofibrate (Tricor) 145 mg DAILY PO Last administered on 03/23/17 09:05; Admin Dose 145 MG; Start 03/21/17 at 09:00 Levothyroxine Sodium (Synthroid) 50 mcg DAILY PO Last administered on 03/23/17 09:05; Admin Dose 50 MCG; Start 03/21/17 at 09:00 Metoprolol Succinate (Toprol Xl) 50 mg BID PO Last administered on 03/22/17 20 :19; Admin Dose 50 MG; Start 03/20/17 at 21:00 Isosorbide Dinitrate (Isordil) 20 mg BID PO Last administered on 03/23/17 09:05 ; Admin Dose 20 MG; Start 03/20/17 at 21:00 Cyanocobalamin (Vitamin B12) 200 mcg DAILY PO Last administered on 03/23/17 09: 04; Admin Dose 200 MCG; Start 03/21/17 at 09:00 Cholecalciferol (Vitamin D) 2,000 unit DAILY PO Last administered on 03/23/17 09:05; Admin Dose 2,000 UNIT; Start 03/21/17 at 09:00 Pantoprazole (Protonix Tab) 40 mg DAILY@06 PO Last administered on 03/23/17 06: 29; Admin Dose 40 MG; Start 03/21/17 at 06:00 Fish Oil (Fish Oil) 1,000 mg BID PO Last administered on 03/23/17 09:04; Admin Dose 1,000 MG; Start 03/20/17 at 21:00 Miscellaneous Information 1 ea NOTE XX ; Start 03/20/17 at 17:30 Glucose (Glutose) 15 gm Q15M PRN PO DECREASED GLUCOSE; Start 03/20/17 at 17:30 Glucose (Glutose) 22.5 gm Q15M PRN PO DECREASED GLUCOSE; Start 03/20/17 at 17: 30 Dextrose (D50w Syringe) 25 ml Q15M PRN IV DECREASED GLUCOSE; Start 03/20/17 at 17:30 Dextrose (D50w Syringe) 50 ml Q15M PRN IV DECREASED GLUCOSE; Start 03/20/17 at 17:30 Glucagon (Glucagen) 1 mg Q15M PRN IM DECREASED GLUCOSE; Start 03/20/17 at 17:30 Glucose (Glutose) 15 gm Q15M PRN BUCCAL DECREASED GLUCOSE; Start 03/20/17 at 17 :30 Patient Own Medication 1 ea BID PO Last administered on 03/23/17 09:04; Admin Dose 1 EA; Start 03/20/17 at 21:00 Aspirin (Aspirin) 81 mg DAILY PO Last administered on 03/23/17 09:05; Admin Dose 81 MG; Start 03/21/17 at 13:30 Multivit/Ca Carb/ B Cmplx/FA/Prenat (Nadyia-Ozzie) 1 tab DAILY PO Last administered on 03/23/17 09:04; Admin Dose 1 TAB; Start 03/22/17 at 09:00 Epoetin Magdiel (Epogen (Esrd)) 10,000 units MoWeFr@17 SC Last administered on 16:42; Admin Dose 10,000 UNITS; Start 03/22/17 at 17:00 Miscellaneous Information (* Miscellaneous Pharmacy Order) Hold all Metformin ... ONCE XX ; Start 03/22/17 at 19:30; Stop 03/24/17 at 19:29 Oxycodone/ Acetaminophen (Percocet (5/ 325)) 1 tab Q4H PRN PO REPORTED NON- CARDIAC PAIN 4-7; Start 03/22/17 at 19:30 Al Hydrox/Mg Hydrox/Simethicone (Mag-Al Plus) 30 ml Q4H PRN PO GASTROINTESTINAL UPSET; Start 03/22/17 at 19:30 Ondansetron HCl (Zofran Inj) 4 mg Q4H PRN IV NAUSEA AND/OR VOMITING; Start at 19:30 Insulin Detemir (Levemir) 12 unit DAILY@20 SC ; Start 03/23/17 at 20:00 Assessment/Plan Additional Assessment/Plan Impression: - NSTEMI- recurrent, has occluded LM with un revascularized area of distal LCx and Proximal LAD. 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 pt s/p PCI with INGA x 1 to SVG-OM1 mid graft stenosis with good result. - CKD- iHD initiated via R IJ catheter for fluid mgmt - Acute on chronic systolic heart failure- likely related to ESRD and fluid overload, fluid mgmt with iHD - s/p ICD normal fxn, h/o VT/VF - Myleofibrosis with anemia s/p transfusion, also now thrombocytopenia, will need to cont asa/plavix given PCI with INGA. ok to hold heparin products Recommendations: - cont asa 81mg daily - cont plavix 75 mg daily - cont metoprolol as tolerated - cont nitrate and titrate - HD per nephrology, pending another course today - recommend PT, slowly increase activity - case d/w patient/family DEENA JONES MD Mar 23, 2017 15:30
[2017-03-23] MEDS: INSULIN DETEMIR [LEVEMIR] 3ML CART SC SCH (21:29)
[2017-03-24] VITALS (11 sets, daily range): BP systolic 105–115; BP diastolic 57–75; PULSE 72–82; RESP 18–20
[2017-03-24 03:05] LABS: HEPARIN INDUCED PLATELET AB NEGATIVE (NEGATIVE)
[2017-03-24] MEDS: PANTOPRAZOLE (EC) 40 MG TAB PO SCH (06:42)
[2017-03-24] MEDS: INSULIN ASPART [NOVOLOG] 3 ML PEN SC SCH ×7 (07:55→20:42)
[2017-03-24 09:06] LABS: ABNORMAL IP MESSAGE 1; BASOPHILS % 0.2 % (0.0-2.0); EOSINOPHILS # 0.1 10^3/ul (0.0-0.5); HEMATOCRIT 29.8 % (42.0-52.0); HEMOGLOBIN 9.9 g/dl (14.0-18.0); LYMPHOCYTES # 0.5 10^3/ul (0.8-2.9); LYMPHOCYTES % 8.3 % (15.0-51.0); MEAN CORPUSCULAR HEMOGLOBIN 28.9 pg (29.0-33.0); MEAN CORPUSCULAR HGB CONC 33.2 g/dl (32.0-37.0); MEAN CORPUSCULAR VOLUME 86.9 fl (82.0-101.0); MEAN PLATELET VOLUME 13.1 fl (7.4-10.4); MONOCYTE # 0.5 10^3/ul (0.3-0.9); MONOCYTES % 8.6 % (0.0-11.0); NEUTROPHIL # 4.4 10^3/ul (1.6-7.5); PLATELET COUNT 78 10^3/UL (140-415); RED BLOOD COUNT 3.43 10^6/ul (4.70-6.10); RED CELL DISTRIBUTION WIDTH 15.9 % (11.5-14.5); WHITE BLOOD COUNT 5.6 10^3/ul (4.8-10.8)
[2017-03-24 09:12] LABS: ADD SCAN DIFF NO
[2017-03-24] MEDS: ISOSORBIDE DINITRATE 20 MG TAB PO SCH (09:35)
[2017-03-24] MEDS: ALLOPURINOL 100 MG TAB PO SCH (09:35)
[2017-03-24] MEDS: CHOLECALCIFEROL 2,000 UNIT CAP PO SCH (09:35)
[2017-03-24] MEDS: ASPIRIN 81 MG TAB PO SCH (09:35)
[2017-03-24] MEDS: CYANOCOBALAMIN 100 MCG TAB PO SCH (09:36)
[2017-03-24] MEDS: FISH OIL 1,000 MG CAP PO SCH ×2 (09:36→20:41)
[2017-03-24] MEDS: LEVOTHYROXINE 50 MCG TAB PO SCH (09:36)
[2017-03-24] MEDS: FENOFIBRATE 145 MG TAB PO SCH (09:36)
[2017-03-24] MEDS: AMLODIPINE 5 MG TAB PO SCH (09:36)
[2017-03-24] MEDS: MULTIVIT/CA CARB/B CMPLX/FA TAB PO SCH (09:36)
[2017-03-24] MEDS: METOPROLOL (XL) 50 MG TAB PO SCH ×2 (09:36→20:41)
[2017-03-24] MEDS: CLOPIDOGREL 75 MG TAB PO SCH (09:36)
[2017-03-24] MEDS: JAKAFI 5 MG PO SCH ×2 (09:37→20:41)
--- NOTE | 2017-03-24 09:41 | PN ---
Date/Time of Note Date/Time of Note DATE: 03/24/17 TIME: 09:29 Assessment/Plan VTE Prophylaxis VTE Prophylaxis Intervention: SCD's Lines/Catheters IV Catheter Type (from [facility]): Urinary Cath still in place: No Assessment/Plan Chief Complaint/Hosp Course Pt has hx of myelofibrosis and is taking Jakafi. Admitted with c/o difficulty sleeping and orthopnea/PND. Pt has undergone coronary angiography with angioplasty and stent placement. Symptoms improved. Plt ct lower than usual on admit. . Problems: (1) Thrombocytopenia Status: Acute (2) Myelofibrosis Status: Chronic (3) Type 2 diabetes mellitus without complications Status: Chronic Qualifiers: Diabetes mellitus ad terminal makeup operator insulin use: with ad terminal makeup operator use Qualified Code : E11.9 - Type 2 diabetes mellitus without complication, with long-term current use of insulin (4) Acute on chronic renal failure (5) Arteriosclerosis of coronary artery in patient with history of myocardial infarction Status: Chronic Assessment/Plan Plt ct today is 78,000. Evaluation for HIT is negative. Will continue on present treatment with Jakafi and monitor platelet count. If requires creation of fistula for chronic hemodialysis will give platelet transfusion prior to procedure. Although platelets are quantitatively adequate they are likely qualitatively inadequate due to azotemia. Subjective 24 Hr Interval Summary Free Text/Dictation Pt states that he is feeling well. No c/o chest pain. No SOB, orthopnea or PND. Exam/Review of Systems Vital Signs Vitals Vital Signs Date Time Temp Pulse Resp B/P Pulse Ox O2 Delivery O2 Flow Rate FiO2 03/24/17 08:49 73 03/24/17 07:23 98.3 19 115/75 95 03/23/17 21:00 2.0 03/23/17 20:00 Nasal Cannula 03/23/17 18:03 28 Intake and Output 03/23/17 03/23/17 03/24/17 15:00 23:00 07:00 Intake Total 540 ml 640 ml Output Total 3050 ml Balance 540 ml -2410 ml Exam Constitutional: alert, oriented, well developed Psych: nl mood/affect Head: atraumatic, normocephalic Eyes: EOMI, PERRL, nl conjunctiva, nl sclera ENMT: mucosa pink and moist, nl lips & teeth Neck: non-tender, other (IJ dialysis catheter on Rt), supple Respiratory: clear to auscultation, normal air movement, other (Sternotomy scar ) Cardiovascular: nl pulses, regular rate and rhythm Gastrointestinal: nl liver, spleen, non-tender, soft Musculoskeletal: nl extremities to inspection, nl gait and stance Extremities: normal pulses 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: [employer]INER II-XII intact, nl strength Skin: ecchymosis, nl turgor, other (Diffuse ecchy and purpura on arms.) Results Result Diagram: 03/24/17 0845 03/23/17 0527 Results 24 hrs Laboratory Tests Test 03/23/17 12:02 03/23/17 14:40 03/23/17 17:30 03/23/17 21:16 Bedside Glucose 147 142 135 Stool Occult Blood NEGATIVE Test 03/24/17 07:50 03/24/17 08:45 Bedside Glucose 100 White Blood Count 5.6 Red Blood Count 3.43 L Hemoglobin 9.9 L Hematocrit 29.8 L Mean Corpuscular Volume 86.9 Mean Corpuscular Hemoglobin 28.9 L Mean Corpuscular Hemoglobin Concent 33.2 Red Cell Distribution Width 15.9 H Platelet Count 78 L Mean Platelet Volume 13.1 H Neutrophils % 80.0 H Lymphocytes % 8.3 L Monocytes % 8.6 Eosinophils % 2.0 Basophils % 0.2 Nucleated Red Blood Cells % 0.0 Neutrophils # 4.4 Lymphocytes # 0.5 L Monocytes # 0.5 Eosinophils # 0.1 Basophils # 0.0 Nucleated Red Blood Cells # 0.0 Medications Medications Current Medications Acetaminophen (Tylenol Tab) 650 mg Q6H PRN PO PAIN LEVEL 1-3 OR FEVER; Start at 17:00 Docusate Sodium (Colace) 100 mg Q12H PRN PO CONSTIPATION Last administered on 12:18; Admin Dose 100 MG; Start 03/20/17 at 17:00 Allopurinol (Zyloprim) 200 mg DAILY PO Last administered on 03/23/17 09:04; Admin Dose 200 MG; Start 03/21/17 at 09:00 Amlodipine Besylate (Norvasc) 5 mg DAILY PO ; Start 03/20/17 at 17:00 Clopidogrel Bisulfate (plaVIX) 75 mg DAILY PO Last administered on 03/23/17 09: 04; Admin Dose 75 MG; Start 03/21/17 at 09:00 Fenofibrate (Tricor) 145 mg DAILY PO Last administered on 03/23/17 09:05; Admin Dose 145 MG; Start 03/21/17 at 09:00 Levothyroxine Sodium (Synthroid) 50 mcg DAILY PO Last administered on 03/23/17 09:05; Admin Dose 50 MCG; Start 03/21/17 at 09:00 Metoprolol Succinate (Toprol Xl) 50 mg BID PO Last administered on 03/23/17 21: 18; Admin Dose 50 MG; Start 03/20/17 at 21:00 Isosorbide Dinitrate (Isordil) 20 mg BID PO Last administered on 03/23/17 21:17 ; Admin Dose 20 MG; Start 03/20/17 at 21:00 Cyanocobalamin (Vitamin B12) 200 mcg DAILY PO Last administered on 03/23/17 09: 04; Admin Dose 200 MCG; Start 03/21/17 at 09:00 Cholecalciferol (Vitamin D) 2,000 unit DAILY PO Last administered on 03/23/17 09:05; Admin Dose 2,000 UNIT; Start 03/21/17 at 09:00 Pantoprazole (Protonix Tab) 40 mg DAILY@06 PO Last administered on 03/24/17 06: 42; Admin Dose 40 MG; Start 03/21/17 at 06:00 Fish Oil (Fish Oil) 1,000 mg BID PO Last administered on 03/23/17 21:17; Admin Dose 1,000 MG; Start 03/20/17 at 21:00 Miscellaneous Information 1 ea NOTE XX ; Start 03/20/17 at 17:30 Glucose (Glutose) 15 gm Q15M PRN PO DECREASED GLUCOSE; Start 03/20/17 at 17:30 Glucose (Glutose) 22.5 gm Q15M PRN PO DECREASED GLUCOSE; Start 03/20/17 at 17: 30 Dextrose (D50w Syringe) 25 ml Q15M PRN IV DECREASED GLUCOSE; Start 03/20/17 at 17:30 Dextrose (D50w Syringe) 50 ml Q15M PRN IV DECREASED GLUCOSE; Start 03/20/17 at 17:30 Glucagon (Glucagen) 1 mg Q15M PRN IM DECREASED GLUCOSE; Start 03/20/17 at 17:30 Glucose (Glutose) 15 gm Q15M PRN BUCCAL DECREASED GLUCOSE; Start 03/20/17 at 17 :30 Patient Own Medication 1 ea BID PO Last administered on 03/23/17 21:18; Admin Dose 1 EA; Start 03/20/17 at 21:00 Aspirin (Aspirin) 81 mg DAILY PO Last administered on 03/23/17 09:05; Admin Dose 81 MG; Start 03/21/17 at 13:30 Multivit/Ca Carb/ B Cmplx/FA/Prenat (Nadiya-Ozzie) 1 tab DAILY PO Last administered on 03/23/17 09:04; Admin Dose 1 TAB; Start 03/22/17 at 09:00 Epoetin Magdiel (Epogen (Esrd)) 10,000 units MoWeFr@17 SC Last administered on 16:42; Admin Dose 10,000 UNITS; Start 03/22/17 at 17:00 Miscellaneous Information (* Miscellaneous Pharmacy Order) Hold all Metformin ... ONCE XX ; Start 03/22/17 at 19:30; Stop 03/24/17 at 19:29 Oxycodone/ Acetaminophen (Percocet (5/ 325)) 1 tab Q4H PRN PO REPORTED NON- CARDIAC PAIN 4-7; Start 03/22/17 at 19:30 Al Hydrox/Mg Hydrox/Simethicone (Mag-Al Plus) 30 ml Q4H PRN PO GASTROINTESTINAL UPSET; Start 03/22/17 at 19:30 Ondansetron HCl (Zofran Inj) 4 mg Q4H PRN IV NAUSEA AND/OR VOMITING; Start at 19:30 Insulin Detemir (Levemir) 12 unit DAILY@20 SC Last administered on 03/23/17 21: 29; Admin Dose 12 UNIT; Start 03/23/17 at 20:00 DARNELL AMARAL MD Mar 24, 2017 09:41
--- NOTE | 2017-03-24 10:38 | CONS ---
Date/Time of Note Date/Time of Note DATE: 03/24/17 TIME: 10:36 Assessment/Plan Assessment/Plan Problems: (1) Type 2 diabetes mellitus without complications Status: Chronic Comment: Excellent glycemic control. Will continue current insulin doses. Qualifiers: Diabetes mellitus usp insulin use: with terminal gauger use Qualified Code : E11.9 - Type 2 diabetes mellitus without complication, with long-term current use of insulin Consultation Date/Type/Reason Admit Date/Time Mar 20, 2017 at 15:32 Initial Consult Date 03/23/17 Type of Consultation: Endocrinology Reason for Consultation T2DM management Referring Provider: JULIANNE ESTRELLA MD 24 HR Interval Summary Constitutional: improved, no complaints Detailed Summary Respiratory: no complaints Cardiovascular: no complaints Gastrointestinal: no complaints Genitourinary: no complaints Musculoskeletal: no complaints Neurologic: no complaints Exam/Review of Systems Vital Signs Vitals VS - Last 72 Hours, by Label Date Time Temp Pulse Resp B/P Pulse Ox O2 Delivery O2 Flow Rate FiO2 03/24/17 08:49 73 03/24/17 07:23 98.3 69 19 115/75 95 03/24/17 04:02 72 03/24/17 00:02 75 03/23/17 23:56 98.0 78 19 114/62 100 03/23/17 21:00 2.0 03/23/17 20:02 98.1 84 18 127/69 100 03/23/17 20:00 80 03/23/17 20:00 Nasal Cannula 2.0 03/23/17 19:58 80 03/23/17 18:03 100 2.0 28 03/23/17 18:00 85 21 124/86 95 03/23/17 17:51 77 24 03/23/17 17:45 81 03/23/17 17:23 86 03/23/17 17:05 77 03/23/17 17:00 83 19 144/73 96 03/23/17 16:46 76 03/23/17 16:44 78 03/23/17 16:14 79 03/23/17 16:00 97.4 77 21 117/70 97 Nasal Cannula 2.0 03/23/17 15:57 76 03/23/17 15:56 100 2.0 28 03/23/17 15:35 75 03/23/17 15:35 75 26 03/23/17 15:00 75 26 115/67 88 03/23/17 14:00 77 25 105/68 99 03/23/17 13:00 80 21 117/63 100 2.0 03/23/17 12:45 76 03/23/17 12:00 97.8 76 21 110/67 100 Nasal Cannula 2.0 03/23/17 12:00 100 2.0 28 03/23/17 11:00 78 24 106/73 100 2.0 03/23/17 10:00 83 28 117/65 99 2.0 03/23/17 09:00 76 24 116/70 100 2.0 03/23/17 08:28 74 03/23/17 08:00 Nasal Cannula 2.0 03/23/17 08:00 100 2.0 28 03/23/17 08:00 97.4 73 26 112/72 100 Nasal Cannula 2.0 03/23/17 07:00 73 25 122/70 90 03/23/17 06:00 72 20 114/68 100 03/23/17 05:44 2.0 03/23/17 05:00 72 16 114/70 100 03/23/17 04:25 74 03/23/17 04:00 98.6 76 20 115/105 99 03/23/17 03:00 76 26 118/71 97 03/23/17 02:00 74 20 105/59 100 03/23/17 01:00 75 19 102/55 99 03/23/17 00:09 75 03/23/17 00:00 98.0 75 20 113/71 100 03/22/17 23:59 100 2.0 03/22/17 21:00 80 23 110/64 99 03/22/17 20:30 78 21 108/66 96 Nasal Cannula 2.0 03/22/17 20:15 79 24 122/63 95 Nasal Cannula 2.0 03/22/17 20:04 81 03/22/17 20:02 80 03/22/17 20:00 83 22 120/71 97 Nasal Cannula 2.0 03/22/17 20:00 Nasal Cannula 2.0 03/22/17 19:45 81 23 128/66 99 Nasal Cannula 2.0 03/22/17 19:39 97.9 89 20 126/70 98 Nasal Cannula 2.0 03/22/17 17:00 119 28 113/78 100 03/22/17 16:00 78 03/22/17 16:00 98.2 85 26 104/63 99 03/22/17 15:00 119 27 104/68 97 03/22/17 14:00 108 28 102/67 97 03/22/17 13:01 3.0 03/22/17 13:00 118 32 103/76 99 03/22/17 12:00 98.5 114 23 98/72 99 Nasal Cannula 03/22/17 12:00 119 03/22/17 11:00 115 21 99 03/22/17 10:00 111 29 109/74 100 Nasal Cannula 03/22/17 09:00 115 23 119/69 93 Nasal Cannula 03/22/17 08:00 Nasal Cannula 03/22/17 08:00 97 23 92/67 97 Nasal Cannula 03/22/17 08:00 113 03/22/17 07:30 98.6 110 23 109/72 97 Nasal Cannula 3.0 03/22/17 07:00 112 22 116/78 100 03/22/17 04:00 110 03/22/17 04:00 98.5 103 23 101/73 100 Nasal Cannula 3.0 03/22/17 03:47 97 3.0 03/22/17 03:30 110 28 110/78 100 Nasal Cannula 3.0 03/22/17 03:00 110 24 107/75 95 Nasal Cannula 3.0 03/22/17 02:30 114 32 85/64 98 Nasal Cannula 3.0 03/22/17 02:00 118 32 98/61 99 Nasal Cannula 3.0 03/22/17 01:30 105 28 109/78 97 Nasal Cannula 3.0 03/22/17 01:00 110 26 105/75 98 Nasal Cannula 3.0 03/22/17 00:30 115 17 100/65 98 Nasal Cannula 3.0 03/22/17 00:00 110 03/22/17 00:00 107 31 100/74 100 Nasal Cannula 3.0 03/21/17 23:30 108 32 114/70 100 Nasal Cannula 3.0 03/21/17 23:00 108 27 109/65 99 Nasal Cannula 3.0 03/21/17 22:30 117 33 105/65 98 Nasal Cannula 3.0 03/21/17 22:00 119 29 96/64 97 Nasal Cannula 3.0 03/21/17 21:30 112 30 101/67 99 Nasal Cannula 3.0 03/21/17 21:00 114 20 90/53 99 Nasal Cannula 3.0 03/21/17 20:30 117 24 101/69 98 Nasal Cannula 3.0 03/21/17 20:13 98 3.0 03/21/17 20:00 108 03/21/17 20:00 Nasal Cannula 3.0 03/21/17 20:00 98.6 99 25 84/61 98 Nasal Cannula 3.0 03/21/17 19:30 115 28 103/74 97 Nasal Cannula 3.0 03/21/17 19:00 121 28 99/71 97 Nasal Cannula 3.0 03/21/17 18:00 120 37 105/81 99 Nasal Cannula 03/21/17 17:32 98 24 03/21/17 17:30 87 03/21/17 17:15 96 03/21/17 17:00 75 03/21/17 17:00 82 27 99 03/21/17 16:45 77 31 100 03/21/17 16:45 75 03/21/17 16:30 78 03/21/17 16:30 75 26 96/54 94 Nasal Cannula 03/21/17 16:15 75 30 100 Nasal Cannula 03/21/17 16:15 73 03/21/17 16:00 73 03/21/17 16:00 4 03/21/17 16:00 98.4 73 27 111/58 100 Nasal Cannula 03/21/17 15:45 73 03/21/17 15:30 72 03/21/17 15:15 74 03/21/17 15:00 73 03/21/17 15:00 71 24 100/55 100 Nasal Cannula 03/21/17 14:45 76 03/21/17 14:30 70 03/21/17 14:30 70 21 03/21/17 14:00 65 25 98/51 99 Nasal Cannula 03/21/17 13:00 69 28 122/69 100 Nasal Cannula 03/21/17 12:00 98.6 69 22 94/66 97 Nasal Cannula 03/21/17 12:00 68 03/21/17 11:34 99 4.0 03/21/17 11:00 68 21 112/63 100 Vital Signs Date Time Temp Pulse Resp B/P Pulse Ox O2 Delivery O2 Flow Rate FiO2 03/24/17 08:49 73 03/24/17 07:23 98.3 19 115/75 95 03/23/17 21:00 2.0 03/23/17 20:00 Nasal Cannula 03/23/17 18:03 28 Intake and Output 03/23/17 03/23/17 03/24/17 15:00 23:00 07:00 Intake Total 540 ml 640 ml Output Total 3050 ml Balance 540 ml -2410 ml Exam Constitutional: alert, frail, oriented Psych: nl mood/affect, no complaints Respiratory: clear to auscultation, normal air movement Cardiovascular: nl pulses, regular rate and rhythm, No edema, No murmurs/extra sounds, No rub Gastrointestinal: bowel sounds, nl liver, spleen, non-tender, soft, No mass, No rebound or guarding Musculoskeletal: nl extremities to inspection Extremities: normal pulses, No clubbing, No cyanosis, No edema 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: [employer] MIDWIFE II-XII intact, nl mental status, nl speech, nl strength Additional Comments Bedside Glucose - 72 Hours Test 03/21/17 12:26 03/21/17 17:30 03/21/17 20:34 03/22/17 06:35 Bedside Glucose 166mg/dL (70-220) 169mg/dL (70-220) 217mg/dL (70-220) 101mg/dL (70-220) Test 03/22/17 07:26 03/22/17 11:43 03/22/17 17:03 03/22/17 20:12 Bedside Glucose 106mg/dL (70-220) 132mg/dL (70-220) 111mg/dL (70-220) 103mg/dL (70-220) Test 03/23/17 08:16 03/23/17 12:02 03/23/17 17:30 03/23/17 21:16 Bedside Glucose 93mg/dL (70-220) 147mg/dL (70-220) 142mg/dL (70-220) 135mg/dL (70-220) Test 03/24/17 07:50 Bedside Glucose 100mg/dL (70-220) Results Result Diagram: 03/24/17 0845 03/23/17 0527 Results 24 hrs Laboratory Tests Test 03/23/17 12:02 03/23/17 14:40 03/23/17 17:30 03/23/17 21:16 Bedside Glucose 147 142 135 Stool Occult Blood NEGATIVE Test 03/24/17 07:50 03/24/17 08:45 Bedside Glucose 100 White Blood Count 5.6 Red Blood Count 3.43 L Hemoglobin 9.9 L Hematocrit 29.8 L Mean Corpuscular Volume 86.9 Mean Corpuscular Hemoglobin 28.9 L Mean Corpuscular Hemoglobin Concent 33.2 Red Cell Distribution Width 15.9 H Platelet Count 78 L Mean Platelet Volume 13.1 H Neutrophils % 80.0 H Lymphocytes % 8.3 L Monocytes % 8.6 Eosinophils % 2.0 Basophils % 0.2 Nucleated Red Blood Cells % 0.0 Neutrophils # 4.4 Lymphocytes # 0.5 L Monocytes # 0.5 Eosinophils # 0.1 Basophils # 0.0 Nucleated Red Blood Cells # 0.0 Medications Medications Current Medications Acetaminophen (Tylenol Tab) 650 mg Q6H PRN PO PAIN LEVEL 1-3 OR FEVER; Start at 17:00 Docusate Sodium (Colace) 100 mg Q12H PRN PO CONSTIPATION Last administered on 12:18; Admin Dose 100 MG; Start 03/20/17 at 17:00 Allopurinol (Zyloprim) 200 mg DAILY PO Last administered on 03/24/17 09:35; Admin Dose 200 MG; Start 03/21/17 at 09:00 Amlodipine Besylate (Norvasc) 5 mg DAILY PO Last administered on 03/24/17 09:36 ; Admin Dose 5 MG; Start 03/20/17 at 17:00 Clopidogrel Bisulfate (plaVIX) 75 mg DAILY PO Last administered on 03/24/17 09: 36; Admin Dose 75 MG; Start 03/21/17 at 09:00 Fenofibrate (Tricor) 145 mg DAILY PO Last administered on 03/24/17 09:36; Admin Dose 145 MG; Start 03/21/17 at 09:00 Levothyroxine Sodium (Synthroid) 50 mcg DAILY PO Last administered on 03/24/17 09:36; Admin Dose 50 MCG; Start 03/21/17 at 09:00 Metoprolol Succinate (Toprol Xl) 50 mg BID PO Last administered on 03/24/17 09: 36; Admin Dose 50 MG; Start 03/20/17 at 21:00 Isosorbide Dinitrate (Isordil) 20 mg BID PO Last administered on 03/24/17 09:35 ; Admin Dose 20 MG; Start 03/20/17 at 21:00 Cyanocobalamin (Vitamin B12) 200 mcg DAILY PO Last administered on 03/24/17 09: 36; Admin Dose 200 MCG; Start 03/21/17 at 09:00 Cholecalciferol (Vitamin D) 2,000 unit DAILY PO Last administered on 03/24/17 09:35; Admin Dose 2,000 UNIT; Start 03/21/17 at 09:00 Pantoprazole (Protonix Tab) 40 mg DAILY@06 PO Last administered on 03/24/17 06: 42; Admin Dose 40 MG; Start 03/21/17 at 06:00 Fish Oil (Fish Oil) 1,000 mg BID PO Last administered on 03/24/17 09:36; Admin Dose 1,000 MG; Start 03/20/17 at 21:00 Miscellaneous Information 1 ea NOTE XX ; Start 03/20/17 at 17:30 Glucose (Glutose) 15 gm Q15M PRN PO DECREASED GLUCOSE; Start 03/20/17 at 17:30 Glucose (Glutose) 22.5 gm Q15M PRN PO DECREASED GLUCOSE; Start 03/20/17 at 17: 30 Dextrose (D50w Syringe) 25 ml Q15M PRN IV DECREASED GLUCOSE; Start 03/20/17 at 17:30 Dextrose (D50w Syringe) 50 ml Q15M PRN IV DECREASED GLUCOSE; Start 03/20/17 at 17:30 Glucagon (Glucagen) 1 mg Q15M PRN IM DECREASED GLUCOSE; Start 03/20/17 at 17:30 Glucose (Glutose) 15 gm Q15M PRN BUCCAL DECREASED GLUCOSE; Start 03/20/17 at 17 :30 Patient Own Medication 1 ea BID PO Last administered on 03/24/17 09:37; Admin Dose 1 EA; Start 03/20/17 at 21:00 Aspirin (Aspirin) 81 mg DAILY PO Last administered on 03/24/17 09:35; Admin Dose 81 MG; Start 03/21/17 at 13:30 Multivit/Ca Carb/ B Cmplx/FA/Prenat (Nadiya-Ozzie) 1 tab DAILY PO Last administered on 03/24/17 09:36; Admin Dose 1 TAB; Start 03/22/17 at 09:00 Epoetin Magdiel (Epogen (Esrd)) 10,000 units MoWeFr@17 SC Last administered on 16:42; Admin Dose 10,000 UNITS; Start 03/22/17 at 17:00 Miscellaneous Information (* Miscellaneous Pharmacy Order) Hold all Metformin ... ONCE XX ; Start 03/22/17 at 19:30; Stop 03/24/17 at 19:29 Oxycodone/ Acetaminophen (Percocet (5/ 325)) 1 tab Q4H PRN PO REPORTED NON- CARDIAC PAIN 4-7; Start 03/22/17 at 19:30 Al Hydrox/Mg Hydrox/Simethicone (Mag-Al Plus) 30 ml Q4H PRN PO GASTROINTESTINAL UPSET; Start 03/22/17 at 19:30 Ondansetron HCl (Zofran Inj) 4 mg Q4H PRN IV NAUSEA AND/OR VOMITING; Start at 19:30 Insulin Detemir (Levemir) 12 unit DAILY@20 SC Last administered on 03/23/17 21: 29; Admin Dose 12 UNIT; Start 03/23/17 at 20:00 JACQUES KATZ MD Mar 24, 2017 10:37
--- NOTE | 2017-03-24 11:27 | PN ---
Date/Time of Note Date/Time of Note DATE: 03/24/17 TIME: 11:23 Assessment/Plan VTE Prophylaxis VTE Prophylaxis Intervention: other Lines/Catheters IV Catheter Type (from Nrsg): Urinary Cath still in place: No Reason Cath still needed: urinary retention Assessment/Plan Assessment/Plan 1. ASHD, stable 2. CHF has resolved 3. CKD, will need hd tomm and tunnel access (will rev with vasc) 4. DC planning to eval closest dialysis facility 5. Will repeat liver panel tomm 6. Platelet ct is still low, rev with heme 7. CHO control is excellent 8. Robles to be dc'd Subjective 24 Hr Interval Summary Respiratory: No cough, No shortness of breath Cardiovascular: No chest pain, No lightheadedness Gastrointestinal: no complaints Genitourinary: other (robles is in place ) Exam/Review of Systems Vital Signs Vitals Vital Signs Date Time Temp Pulse Resp B/P Pulse Ox O2 Delivery O2 Flow Rate FiO2 03/24/17 11:13 98.1 75 19 105/58 95 03/23/17 21:00 2.0 03/23/17 20:00 Nasal Cannula 03/23/17 18:03 28 Intake and Output 03/23/17 03/23/17 03/24/17 15:00 23:00 07:00 Intake Total 540 ml 640 ml Output Total 3050 ml Balance 540 ml -2410 ml Exam Neck: No jvd Respiratory: other (few dry rales at bases) Cardiovascular: regular rate and rhythm, No S3, No S4, No rub Gastrointestinal: soft Extremities: No edema (and no calf tend) Results Result Diagram: 03/24/17 0845 03/23/17 0527 Results 24 hrs Laboratory Tests Test 03/23/17 12:02 03/23/17 14:40 03/23/17 17:30 03/23/17 21:16 Bedside Glucose 147 142 135 Stool Occult Blood NEGATIVE Test 03/24/17 07:50 03/24/17 08:45 Bedside Glucose 100 White Blood Count 5.6 Red Blood Count 3.43 L Hemoglobin 9.9 L Hematocrit 29.8 L Mean Corpuscular Volume 86.9 Mean Corpuscular Hemoglobin 28.9 L Mean Corpuscular Hemoglobin Concent 33.2 Red Cell Distribution Width 15.9 H Platelet Count 78 L Mean Platelet Volume 13.1 H Neutrophils % 80.0 H Lymphocytes % 8.3 L Monocytes % 8.6 Eosinophils % 2.0 Basophils % 0.2 Nucleated Red Blood Cells % 0.0 Neutrophils # 4.4 Lymphocytes # 0.5 L Monocytes # 0.5 Eosinophils # 0.1 Basophils # 0.0 Nucleated Red Blood Cells # 0.0 Medications Medications Current Medications Acetaminophen (Tylenol Tab) 650 mg Q6H PRN PO PAIN LEVEL 1-3 OR FEVER; Start at 17:00 Docusate Sodium (Colace) 100 mg Q12H PRN PO CONSTIPATION Last administered on 12:18; Admin Dose 100 MG; Start 03/20/17 at 17:00 Allopurinol (Zyloprim) 200 mg DAILY PO Last administered on 03/24/17 09:35; Admin Dose 200 MG; Start 03/21/17 at 09:00 Amlodipine Besylate (Norvasc) 5 mg DAILY PO Last administered on 03/24/17 09:36 ; Admin Dose 5 MG; Start 03/20/17 at 17:00 Clopidogrel Bisulfate (plaVIX) 75 mg DAILY PO Last administered on 03/24/17 09: 36; Admin Dose 75 MG; Start 03/21/17 at 09:00 Fenofibrate (Tricor) 145 mg DAILY PO Last administered on 03/24/17 09:36; Admin Dose 145 MG; Start 03/21/17 at 09:00 Levothyroxine Sodium (Synthroid) 50 mcg DAILY PO Last administered on 03/24/17 09:36; Admin Dose 50 MCG; Start 03/21/17 at 09:00 Metoprolol Succinate (Toprol Xl) 50 mg BID PO Last administered on 03/24/17 09: 36; Admin Dose 50 MG; Start 03/20/17 at 21:00 Isosorbide Dinitrate (Isordil) 20 mg BID PO Last administered on 03/24/17 09:35 ; Admin Dose 20 MG; Start 03/20/17 at 21:00 Cyanocobalamin (Vitamin B12) 200 mcg DAILY PO Last administered on 03/24/17 09: 36; Admin Dose 200 MCG; Start 03/21/17 at 09:00 Cholecalciferol (Vitamin D) 2,000 unit DAILY PO Last administered on 03/24/17 09:35; Admin Dose 2,000 UNIT; Start 03/21/17 at 09:00 Pantoprazole (Protonix Tab) 40 mg DAILY@06 PO Last administered on 03/24/17 06: 42; Admin Dose 40 MG; Start 03/21/17 at 06:00 Fish Oil (Fish Oil) 1,000 mg BID PO Last administered on 03/24/17 09:36; Admin Dose 1,000 MG; Start 03/20/17 at 21:00 Miscellaneous Information 1 ea NOTE XX ; Start 03/20/17 at 17:30 Glucose (Glutose) 15 gm Q15M PRN PO DECREASED GLUCOSE; Start 03/20/17 at 17:30 Glucose (Glutose) 22.5 gm Q15M PRN PO DECREASED GLUCOSE; Start 03/20/17 at 17: 30 Dextrose (D50w Syringe) 25 ml Q15M PRN IV DECREASED GLUCOSE; Start 03/20/17 at 17:30 Dextrose (D50w Syringe) 50 ml Q15M PRN IV DECREASED GLUCOSE; Start 03/20/17 at 17:30 Glucagon (Glucagen) 1 mg Q15M PRN IM DECREASED GLUCOSE; Start 03/20/17 at 17:30 Glucose (Glutose) 15 gm Q15M PRN BUCCAL DECREASED GLUCOSE; Start 03/20/17 at 17 :30 Patient Own Medication 1 ea BID PO Last administered on 03/24/17 09:37; Admin Dose 1 EA; Start 03/20/17 at 21:00 Aspirin (Aspirin) 81 mg DAILY PO Last administered on 03/24/17 09:35; Admin Dose 81 MG; Start 03/21/17 at 13:30 Multivit/Ca Carb/ B Cmplx/FA/Prenat (Nadiya-Ozzie) 1 tab DAILY PO Last administered on 03/24/17 09:36; Admin Dose 1 TAB; Start 03/22/17 at 09:00 Epoetin Magdiel (Epogen (Esrd)) 10,000 units MoWeFr@17 SC Last administered on 16:42; Admin Dose 10,000 UNITS; Start 03/22/17 at 17:00 Miscellaneous Information (* Miscellaneous Pharmacy Order) Hold all Metformin ... ONCE XX ; Start 03/22/17 at 19:30; Stop 03/24/17 at 19:29 Oxycodone/ Acetaminophen (Percocet (5/ 325)) 1 tab Q4H PRN PO REPORTED NON- CARDIAC PAIN 4-7; Start 03/22/17 at 19:30 Al Hydrox/Mg Hydrox/Simethicone (Mag-Al Plus) 30 ml Q4H PRN PO GASTROINTESTINAL UPSET; Start 03/22/17 at 19:30 Ondansetron HCl (Zofran Inj) 4 mg Q4H PRN IV NAUSEA AND/OR VOMITING; Start at 19:30 Insulin Detemir (Levemir) 12 unit DAILY@20 SC Last administered on 03/23/17t 21: 29; Admin Dose 12 UNIT; Start 03/23/17 at 20:00 JULIANNE ESTRELLA MD Mar 24, 2017 11:27
--- NOTE | 2017-03-24 11:49 | CONS ---
Date/Time of Note Date/Time of Note DATE: 03/24/17 TIME: 11:48 Assessment/Plan Assessment/Plan Additional Assessment/Plan Impression: # NSTEMI- recurrent, has occluded LM with un revascularized area of distal LCx and Proximal LAD. 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 pt s/p PCI with INGA x 1 to SVG-OM1 mid graft stenosis with good result. 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 ok to hold heparin products Recommendations: - cont asa 81mg daily - cont plavix 75 mg daily - cont metoprolol as tolerated - Titrate down nitrates. 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 On tele floor now without any CP or SOB. He is not reporting any dizziness. Referring Provider: JULIANNE ESTRELLA MD Exam/Review of Systems Vital Signs Vitals Vital Signs Date Time Temp Pulse Resp B/P Pulse Ox O2 Delivery O2 Flow Rate FiO2 03/24/17 11:13 98.1 75 19 105/58 95 03/23/17 21:00 2.0 03/23/17 20:00 Nasal Cannula 03/23/17 18:03 28 Intake and Output 03/23/17 03/23/17 03/24/17 15:00 23:00 07:00 Intake Total 540 ml 640 ml Output Total 3050 ml Balance 540 ml -2410 ml Exam Constitutional: alert, oriented Psych: no complaints Head: normocephalic Eyes: nl conjunctiva ENMT: nl external ears & nose Neck: jvd (8-10) Gastrointestinal: non-tender, soft Musculoskeletal: nl extremities to inspection Results Result Diagram: 03/24/17 0845 03/23/17 0527 Results 24 hrs Laboratory Tests Test 03/23/17 12:02 03/23/17 14:40 03/23/17 17:30 03/23/17 21:16 Bedside Glucose 147 142 135 Stool Occult Blood NEGATIVE Test 03/24/17 07:50 03/24/17 08:45 03/24/17 11:43 Bedside Glucose 100 195 White Blood Count 5.6 Red Blood Count 3.43 L Hemoglobin 9.9 L Hematocrit 29.8 L Mean Corpuscular Volume 86.9 Mean Corpuscular Hemoglobin 28.9 L Mean Corpuscular Hemoglobin Concent 33.2 Red Cell Distribution Width 15.9 H Platelet Count 78 L Mean Platelet Volume 13.1 H Neutrophils % 80.0 H Lymphocytes % 8.3 L Monocytes % 8.6 Eosinophils % 2.0 Basophils % 0.2 Nucleated Red Blood Cells % 0.0 Neutrophils # 4.4 Lymphocytes # 0.5 L Monocytes # 0.5 Eosinophils # 0.1 Basophils # 0.0 Nucleated Red Blood Cells # 0.0 Medications Medications Current Medications Acetaminophen (Tylenol Tab) 650 mg Q6H PRN PO PAIN LEVEL 1-3 OR FEVER; Start at 17:00 Docusate Sodium (Colace) 100 mg Q12H PRN PO CONSTIPATION Last administered on 12:18; Admin Dose 100 MG; Start 03/20/17 at 17:00 Allopurinol (Zyloprim) 200 mg DAILY PO Last administered on 03/24/17 09:35; Admin Dose 200 MG; Start 03/21/17 at 09:00 Amlodipine Besylate (Norvasc) 5 mg DAILY PO Last administered on 03/24/17 09:36 ; Admin Dose 5 MG; Start 03/20/17 at 17:00 Clopidogrel Bisulfate (plaVIX) 75 mg DAILY PO Last administered on 03/24/17 09: 36; Admin Dose 75 MG; Start 03/21/17 at 09:00 Fenofibrate (Tricor) 145 mg DAILY PO Last administered on 03/24/17 09:36; Admin Dose 145 MG; Start 03/21/17 at 09:00 Levothyroxine Sodium (Synthroid) 50 mcg DAILY PO Last administered on 03/24/17 09:36; Admin Dose 50 MCG; Start 03/21/17 at 09:00 Metoprolol Succinate (Toprol Xl) 50 mg BID PO Last administered on 03/24/17 09: 36; Admin Dose 50 MG; Start 03/20/17 at 21:00 Isosorbide Dinitrate (Isordil) 20 mg BID PO Last administered on 03/24/17 09:35 ; Admin Dose 20 MG; Start 03/20/17 at 21:00 Cyanocobalamin (Vitamin B12) 200 mcg DAILY PO Last administered on 03/24/17 09: 36; Admin Dose 200 MCG; Start 03/21/17 at 09:00 Cholecalciferol (Vitamin D) 2,000 unit DAILY PO Last administered on 03/24/17 09:35; Admin Dose 2,000 UNIT; Start 03/21/17 at 09:00 Pantoprazole (Protonix Tab) 40 mg DAILY@06 PO Last administered on 03/24/17 06: 42; Admin Dose 40 MG; Start 03/21/17 at 06:00 Fish Oil (Fish Oil) 1,000 mg BID PO Last administered on 03/24/17 09:36; Admin Dose 1,000 MG; Start 03/20/17 at 21:00 Miscellaneous Information 1 ea NOTE XX ; Start 03/20/17 at 17:30 Glucose (Glutose) 15 gm Q15M PRN PO DECREASED GLUCOSE; Start 03/20/17 at 17:30 Glucose (Glutose) 22.5 gm Q15M PRN PO DECREASED GLUCOSE; Start 03/20/17 at 17: 30 Dextrose (D50w Syringe) 25 ml Q15M PRN IV DECREASED GLUCOSE; Start 03/20/17 at 17:30 Dextrose (D50w Syringe) 50 ml Q15M PRN IV DECREASED GLUCOSE; Start 03/20/17 at 17:30 Glucagon (Glucagen) 1 mg Q15M PRN IM DECREASED GLUCOSE; Start 03/20/17 at 17:30 Glucose (Glutose) 15 gm Q15M PRN BUCCAL DECREASED GLUCOSE; Start 03/20/17 at 17 :30 Patient Own Medication 1 ea BID PO Last administered on 03/24/17 09:37; Admin Dose 1 EA; Start 03/20/17 at 21:00 Aspirin (Aspirin) 81 mg DAILY PO Last administered on 03/24/17 09:35; Admin Dose 81 MG; Start 03/21/17 at 13:30 Multivit/Ca Carb/ B Cmplx/FA/Prenat (Nadiya-Ozzie) 1 tab DAILY PO Last administered on 03/24/17 09:36; Admin Dose 1 TAB; Start 03/22/17 at 09:00 Epoetin Magdiel (Epogen (Esrd)) 10,000 units MoWeFr@17 SC Last administered on 16:42; Admin Dose 10,000 UNITS; Start 03/22/17 at 17:00 Miscellaneous Information (* Miscellaneous Pharmacy Order) Hold all Metformin ... ONCE XX ; Start 03/22/17 at 19:30; Stop 03/24/17 at 19:29 Oxycodone/ Acetaminophen (Percocet (5/ 325)) 1 tab Q4H PRN PO REPORTED NON- CARDIAC PAIN 4-7; Start 03/22/17 at 19:30 Al Hydrox/Mg Hydrox/Simethicone (Mag-Al Plus) 30 ml Q4H PRN PO GASTROINTESTINAL UPSET; Start 03/22/17 at 19:30 Ondansetron HCl (Zofran Inj) 4 mg Q4H PRN IV NAUSEA AND/OR VOMITING; Start at 19:30 Insulin Detemir (Levemir) 12 unit DAILY@20 SC Last administered on 03/23/17 21: 29; Admin Dose 12 UNIT; Start 03/23/17 at 20:00 DEENA JONES MD Mar 24, 2017 11:49
[2017-03-24 13:06] LABS: ADD UMIC YES; UR ASCORBIC ACID NEGATIVE (NEGATIVE); UR BILIRUBIN (Dip) NEGATIVE (NEGATIVE); UR BLOOD (Dip) 3+ mg/dL (NEGATIVE); UR CLARITY SLIGHTLY CLOUDY (CLEAR); UR COLOR YELLOW (YELLOW); UR GLUCOSE (Dip) NEGATIVE (NEGATIVE); UR KETONES (Dip) NEGATIVE (NEGATIVE); UR LEUKOCYTE ESTERASE (Dip) 1+ Leu/ul (NEGATIVE); UR NITRITE (Dip) NEGATIVE (NEGATIVE); UR RBC 22 /HPF (0-5); UR SPECIFIC GRAVITY (Dip) 1.021 (1.003-1.030); UR TOTAL PROTEIN (Dip) 1+ mg/dl (NEGATIVE); UR UROBILINOGEN (Dip) NEGATIVE (NEGATIVE)
[2017-03-24] MEDS: INSULIN DETEMIR [LEVEMIR] 3ML CART SC SCH ×2 (20:00→21:13)
[2017-03-24] MEDS: ISOSORBIDE DINITRATE 10 MG TAB PO SCH (20:41)
[2017-03-25] VITALS (22 sets, daily range): BP systolic 86–129; BP diastolic 56–84; PULSE 70–89; RESP 18–20
[2017-03-25] MEDS: PANTOPRAZOLE (EC) 40 MG TAB PO SCH (06:00)
[2017-03-25 06:19] LABS: ABNORMAL IP MESSAGE 1; BASOPHILS % 0.2 % (0.0-2.0); EOSINOPHILS # 0.1 10^3/ul (0.0-0.5); EOSINOPHILS % 1.5 % (0.0-7.0); HEMATOCRIT 28.8 % (42.0-52.0); HEMOGLOBIN 9.5 g/dl (14.0-18.0); LYMPHOCYTES # 0.7 10^3/ul (0.8-2.9); LYMPHOCYTES % 12.8 % (15.0-51.0); MEAN CORPUSCULAR HEMOGLOBIN 28.7 pg (29.0-33.0); MEAN PLATELET VOLUME 12.7 fl (7.4-10.4); MONOCYTE # 0.6 10^3/ul (0.3-0.9); MONOCYTES % 10.3 % (0.0-11.0); NEUTROPHIL # 3.9 10^3/ul (1.6-7.5); NEUTROPHILS % 73.9 % (39.0-77.0); PLATELET COUNT 66 10^3/UL (140-415); RED BLOOD COUNT 3.31 10^6/ul (4.70-6.10); RED CELL DISTRIBUTION WIDTH 15.9 % (11.5-14.5); WHITE BLOOD COUNT 5.3 10^3/ul (4.8-10.8)
[2017-03-25 06:47] LABS: ALBUMIN 4.4 g/dl (3.3-4.9); ALBUMIN/GLOBULIN RATIO 1.83; BILIRUBIN,INDIRECT 0.3 mg/dl (0-1.1); BILIRUBIN,TOTAL 0.3 mg/dl (0.2-1.3); CREATININE 3.77 mg/dl (0.61-1.24); TOTAL PROTEIN 6.8 g/dl (6.1-8.1)
[2017-03-25] MEDS: INSULIN ASPART [NOVOLOG] 3 ML PEN SC SCH ×7 (07:55→21:00)
--- NOTE | 2017-03-25 08:16 | PN ---
Date/Time of Note Date/Time of Note DATE: 03/25/17 TIME: 08:13 Assessment/Plan VTE Prophylaxis VTE Prophylaxis Intervention: other Lines/Catheters IV Catheter Type (from Nrsg): Peripheral IV Urinary Cath still in place: No Assessment/Plan Assessment/Plan 1. CKD now on hd, with next rx today, await case management re->ecf and closest dialysis facility 2. Rales still present, UF on HD and will get follow up cxr and ck oxygen Sat. 3. Echymoses, will hold fish oil for now 4. Thrombocytopenia ? related to Jakifi, will rev with heme 5. DM, control is acceptable 6. ASHD, acute mi, asx, pvc (without runs) noted on tele 7. Hoping PT sees pt today Subjective 24 Hr Interval Summary Respiratory: No cough, No shortness of breath Cardiovascular: No chest pain Gastrointestinal: no complaints Genitourinary: no complaints Exam/Review of Systems Vital Signs Vitals Vital Signs Date Time Temp Pulse Resp B/P Pulse Ox O2 Delivery O2 Flow Rate FiO2 03/25/17 07:16 98.0 76 18 129/63 98 03/24/17 20:00 Nasal Cannula 2.0 03/24/17 17:28 21 Intake and Output 03/24/17 03/24/17 03/25/17 15:00 23:00 07:00 Intake Total 400 ml 350 ml Output Total 1 ml 265 ml Balance 399 ml 85 ml Exam Neck: No jvd Respiratory: other (rales at bases bilat) Cardiovascular: regular rate and rhythm, No S3, No S4, No rub (1/6 syst m) Gastrointestinal: soft, No nl liver, spleen, No tender Extremities: No edema (and no calf tend) Skin: other (echymoses noted) Results Result Diagram: 03/25/17 0545 03/25/17 0545 Results 24 hrs Laboratory Tests Test 03/24/17 08:45 03/24/17 11:30 03/24/17 11:43 03/24/17 17:14 White Blood Count 5.6 Red Blood Count 3.43 L Hemoglobin 9.9 L Hematocrit 29.8 L Mean Corpuscular Volume 86.9 Mean Corpuscular Hemoglobin 28.9 L Mean Corpuscular Hemoglobin Concent 33.2 Red Cell Distribution Width 15.9 H Platelet Count 78 L Mean Platelet Volume 13.1 H Neutrophils % 80.0 H Lymphocytes % 8.3 L Monocytes % 8.6 Eosinophils % 2.0 Basophils % 0.2 Nucleated Red Blood Cells % 0.0 Neutrophils # 4.4 Lymphocytes # 0.5 L Monocytes # 0.5 Eosinophils # 0.1 Basophils # 0.0 Nucleated Red Blood Cells # 0.0 Urine Color YELLOW Urine Clarity SLIGHTLY CLOUDY A Urine pH 5.0 Urine Specific [place] 1.021 Urine Ketones NEGATIVE Urine Nitrite NEGATIVE Urine Bilirubin NEGATIVE Urine Urobilinogen NEGATIVE Urine Leukocyte Esterase 1+ H Urine Microscopic RBC 22 H Urine Microscopic WBC 4 Urine Hemoglobin 3+ H Urine Glucose NEGATIVE Urine Total Protein 1+ H Bedside Glucose 195 107 Test 03/24/17 20:39 03/25/17 05:45 03/25/17 07:27 Bedside Glucose 88 121 White Blood Count 5.3 Red Blood Count 3.31 L Hemoglobin 9.5 L Hematocrit 28.8 L Mean Corpuscular Volume 87.0 Mean Corpuscular Hemoglobin 28.7 L Mean Corpuscular Hemoglobin Concent 33.0 Red Cell Distribution Width 15.9 H Platelet Count 66 L Mean Platelet Volume 12.7 H Neutrophils % 73.9 Lymphocytes % 12.8 L Monocytes % 10.3 Eosinophils % 1.5 Basophils % 0.2 Nucleated Red Blood Cells % 0.0 Neutrophils # 3.9 Lymphocytes # 0.7 L Monocytes # 0.6 Eosinophils # 0.1 Basophils # 0.0 Nucleated Red Blood Cells # 0.0 Sodium Level 131 L Potassium Level 4.0 Chloride Level 89 L Carbon Dioxide Level 24 Anion Gap 22 H Blood Urea Nitrogen 64 H Creatinine 3.77 H Glucose Level 103 Calcium Level 9.0 Total Bilirubin 0.3 Direct Bilirubin 0.00 Indirect Bilirubin 0.3 Aspartate Amino Transf (AST/SGOT) 104 H Alanine Aminotransferase (ALT/SGPT) 218 H Alkaline Phosphatase 27 L Total Protein 6.8 Albumin 4.4 Globulin 2.40 Albumin/Globulin Ratio 1.83 Medications Medications Current Medications Acetaminophen (Tylenol Tab) 650 mg Q6H PRN PO PAIN LEVEL 1-3 OR FEVER; Start at 17:00 Docusate Sodium (Colace) 100 mg Q12H PRN PO CONSTIPATION Last administered on t 12:18; Admin Dose 100 MG; Start 03/20/17 at 17:00 Allopurinol (Zyloprim) 200 mg DAILY PO Last administered on 03/24/17 09:35; Admin Dose 200 MG; Start 03/21/17 at 09:00 Amlodipine Besylate (Norvasc) 5 mg DAILY PO Last administered on 03/24/17 09:36 ; Admin Dose 5 MG; Start 03/20/17 at 17:00 Clopidogrel Bisulfate (plaVIX) 75 mg DAILY PO Last administered on 03/24/17 09: 36; Admin Dose 75 MG; Start 03/21/17 at 09:00 Fenofibrate (Tricor) 145 mg DAILY PO Last administered on 03/24/17 09:36; Admin Dose 145 MG; Start 03/21/17 at 09:00 Levothyroxine Sodium (Synthroid) 50 mcg DAILY PO Last administered on 03/24/17 09:36; Admin Dose 50 MCG; Start 03/21/17 at 09:00 Metoprolol Succinate (Toprol Xl) 50 mg BID PO Last administered on 03/24/17 20: 41; Admin Dose 50 MG; Start 03/20/17 at 21:00 Cyanocobalamin (Vitamin B12) 200 mcg DAILY PO Last administered on 03/24/17 09: 36; Admin Dose 200 MCG; Start 03/21/17 at 09:00 Cholecalciferol (Vitamin D) 2,000 unit DAILY PO Last administered on 03/24/17 09:35; Admin Dose 2,000 UNIT; Start 03/21/17 at 09:00 Pantoprazole (Protonix Tab) 40 mg DAILY@06 PO Last administered on 03/25/17 06: 00; Admin Dose 40 MG; Start 03/21/17 at 06:00 Fish Oil (Fish Oil) 1,000 mg BID PO Last administered on 03/24/17 20:41; Admin Dose 1,000 MG; Start 03/20/17 at 21:00 Miscellaneous Information 1 ea NOTE XX ; Start 03/20/17 at 17:30 Glucose (Glutose) 15 gm Q15M PRN PO DECREASED GLUCOSE; Start 03/20/17 at 17:30 Glucose (Glutose) 22.5 gm Q15M PRN PO DECREASED GLUCOSE; Start 03/20/17 at 17: 30 Dextrose (D50w Syringe) 25 ml Q15M PRN IV DECREASED GLUCOSE; Start 03/20/17 at 17:30 Dextrose (D50w Syringe) 50 ml Q15M PRN IV DECREASED GLUCOSE; Start 03/20/17 at 17:30 Glucagon (Glucagen) 1 mg Q15M PRN IM DECREASED GLUCOSE; Start 03/20/17 at 17:30 Glucose (Glutose) 15 gm Q15M PRN BUCCAL DECREASED GLUCOSE; Start 03/20/17 at 17 :30 Patient Own Medication 1 ea BID PO Last administered on 03/24/17 20:41; Admin Dose 1 EA; Start 03/20/17 at 21:00 Aspirin (Aspirin) 81 mg DAILY PO Last administered on 03/24/17 09:35; Admin Dose 81 MG; Start 03/21/17 at 13:30 Multivit/Ca Carb/ B Cmplx/FA/Prenat (Nadiya-Ozzie) 1 tab DAILY PO Last administered on 03/24/17 09:36; Admin Dose 1 TAB; Start 03/22/17 at 09:00 Epoetin Magdiel (Epogen (Esrd)) 10,000 units MoWeFr@17 SC Last administered on 16:42; Admin Dose 10,000 UNITS; Start 03/22/17 at 17:00 Oxycodone/ Acetaminophen (Percocet (5/ 325)) 1 tab Q4H PRN PO REPORTED NON- CARDIAC PAIN 4-7; Start 03/22/17 at 19:30 Al Hydrox/Mg Hydrox/Simethicone (Mag-Al Plus) 30 ml Q4H PRN PO GASTROINTESTINAL UPSET; Start 03/22/17 at 19:30 Ondansetron HCl (Zofran Inj) 4 mg Q4H PRN IV NAUSEA AND/OR VOMITING; Start at 19:30 Insulin Detemir (Levemir) 12 unit DAILY@20 SC Last administered on 03/24/17 21: 13; Admin Dose 12 UNIT; Start 03/23/17 at 20:00 Isosorbide Dinitrate (Isordil) 10 mg BID PO Last administered on 03/24/17 20:41 ; Admin Dose 10 MG; Start 03/24/17 at 21:00 JULIANNE ESTRELLA MD Mar 25, 2017 08:16
--- NOTE | 2017-03-25 08:26 | RADRPT ---
PROCEDURE: Bilateral upper extremity vein mapping ultrasound. CLINICAL INDICATION: End-stage renal disease. Preoperative evaluation. TECHNIQUE: Gutierrez scale images of the veins of the bilateral upper extremities were obtained. COMPARISON: None available. FINDINGS: The subclavian, axillary, and brachial veins are compressible bilaterally. The visualized cephalic and basilic veins are also compressible bilaterally. Diameters: Right: Upper cephalic vein: 0.13 cm. Mid cephalic vein: 0.11 cm. Distal cephalic vein: 0.13 cm. Upper forearm cephalic vein: 0.14 cm. Mid forearm cephalic vein: 0.16 cm. Lower forearm cephalic vein: 0.12 cm. Upper basilic vein: 0.37 cm. Mid basilic vein: 0.21 cm. Lower basilic vein: 0.27 cm. Upper forearm basilic vein: 0.20 cm. Mid forearm basilic vein: 0.13 cm. Lower forearm basilic vein: 0.15 cm. Left: Upper cephalic vein: 0.14 cm. Mid cephalic vein: 0.13 cm. Distal cephalic vein: 0.13 cm. Upper forearm cephalic vein: 0.18 cm. Mid forearm cephalic vein: 0.15 cm. Lower forearm cephalic vein: 0.18 cm. Upper basilic vein: 0.36 cm. Mid basilic vein: 0.28 cm. Lower basilic vein: 0.36 cm. Forearm basilic vein: Not identified IMPRESSION: 1. Upper extremity vein mapping as above. RPTAT: GG .Ravi Enriquez MD, MD Date Time Electronically viewed and signed by .Ravi Enriquez MD, MD on 03/25/2017 08:26 .P/
[2017-03-25] MEDS: METOPROLOL (XL) 50 MG TAB PO SCH ×2 (09:00→21:09)
[2017-03-25] MEDS: AMLODIPINE 5 MG TAB PO SCH (09:00)
--- NOTE | 2017-03-25 09:01 | RADRPT ---
Echocardiogram Report Patient Name: ABIMAEL VILLALOBOS Gender: Male Date: 1935 Study Date: 21-Mar-2017 School Counselor: Zach AlALVIN Location: 117 Ref. Physician: FAB ROSALES Quality: Good Procedures: Transthoracic echocardiogram with complete 2D, M-Mode, and doppler examination. Indications: NSTEMI. 2D/M Mode Doppler Measurement Value Normal Ranges Measurement Value Normal Ranges LVIDd 2D 5.5 3.5 - 5.6 cm AV Peak Seng 1.2 m/sec LVIDs 2D 4.8 2.1 - 4.1 cm AV Peak PG 6.0 mmHg FS 2D 12.3 % AI Peak PG 56.0 mmHg LVPWd 2D 1.2 0.6 - 1.1 cm AI Peak Seng 3.7 m/sec IVSd 2D 1.1 0.6 - 1.1 cm AI PHT 606.0 msec IVS/LVPW 2D 0.9 LVOT Peak Seng 0.8 m/sec AoR Diam 2D 3.2 2.0 - 3.7 cm LVOT Peak PG 2.0 mmHg LA/Ao 2D 1 0 - 1 MV E Peak Seng 0.4 m/sec EDV 2D 163.0 cm3 MV A Peak Seng 0.6 m/sec ESV 2D 110.0 cm3 MV E/A 0.8 LA Dimen 2D 4.0 2.3 - 4.0 cm MV Decel Time 239 msec MV E/A 0.8 TR Peak Seng 2.9 m/sec TR Peak PG 34.0 mmHg RVSP 42.0 mmHg Findings Left Ventricle: Normal left ventricular cavity size. Mild concentric left ventricular hypertrophy. Severe global left ventricular systolic dysfunction. Ejection fraction is visually estimated at 25 %. Tissue Doppler/Mitral Doppler indices are consistent with pseudonormalization with mildly elevated left atrial pressure (Stage II diastolic dysfunction). These segments of the LV are hypokinetic anteroseptum mid segment, anteroseptum base segment, apical septum and inferior base segment. Right Ventricle: Mild right ventricular hypokinesis. Pacemaker right heart. Left Atrium: There is mild enlargement of left atrium. Right Atrium: The right atrium is normal in size. Mitral Valve: Mitral valve leaflets appear mildly thickened. Mild mitral annular calcification. Mild mitral valve regurgitation. Aortic Valve: No hemodynamically significant aortic stenosis by doppler. Aortic cusps appear mildly calcified. Trileaflet aortic valve. Mild aortic valve regurgitation. Tricuspid Valve: Normal appearance of the tricuspid valve. Right ventricular systolic pressure is consistent with moderate pulmonary hypertension. Estimated peak PA systolic pressure 42 mmHg. There is mild tricuspid regurgitation. Pulmonic Valve: Normal pulmonic valve appearance. There is trace pulmonic regurgitation. Pericardium: Trivial pericardial effusion. Left pleural effusion seen. Aorta: Normal aortic root. IVC: Dilated IVC with respiratory collapse consistent with elevated right atrial pressure. Conclusions Normal left ventricular cavity size. Mild concentric left ventricular hypertrophy. Severe global left ventricular systolic dysfunction. Ejection fraction is visually estimated at 25 %. Tissue Doppler/Mitral Doppler indices are consistent with pseudonormalization with mildly elevated left atrial pressure (Stage II diastolic dysfunction). These segments of the LV are hypokinetic anteroseptum mid segment, anteroseptum base segment, apical septum. and inferior base segment. Mild right ventricular hypokinesis. Pacemaker right heart. There is mild enlargement of left atrium. No hemodynamically significant aortic stenosis by doppler. Aortic cusps appear mildly calcified. Trileaflet aortic valve. Mild aortic valve regurgitation. Normal appearance of the tricuspid valve. Right ventricular systolic pressure is consistent with moderate pulmonary hypertension. Estimated peak PA systolic pressure 42 mmHg. There is mild tricuspid regurgitation. Dilated IVC with respiratory collapse consistent with elevated right atrial pressure. No Vegetation, masses, or thrombi seen. Electronically Signed By: Fab Rosales 25-Mar-2017 09:00:29 0700 Patient Name: ABIMAEL VILLALOBOS Study Date: 21-Mar-2017 [id number]
--- NOTE | 2017-03-25 09:46 | PN ---
Date/Time of Note Date/Time of Note DATE: 03/25/17 TIME: 09:39 Assessment/Plan Lines/Catheters IV Catheter Type (from [facility]): Peripheral IV Marcum in Place (from [facility]): No Assessment/Plan Chief Complaint/Hosp Course -ESRD: It seems the patients renal failure has progressed to ESRD. Will schedule to have the Alfredo changed to Perm Catheter and eventual Fistula creation as outpt. -Will obtain vein mapping -Optimize Vascular status -Discussed findings, plan and management with the patient and he understands -Thank you for allowing us to partake in the care of your patient, please call with any questions Problems: Subjective 24 Hr Interval Summary no new vascular events overnight Exam/Review of Systems Vital Signs Vitals Vital Signs Date Time Temp Pulse Resp B/P Pulse Ox O2 Delivery O2 Flow Rate FiO2 03/25/17 07:16 98.0 76 18 129/63 98 03/24/17 20:00 Nasal Cannula 2.0 03/24/17 17:28 21 Intake and Output 03/24/17 03/24/17 03/25/17 15:00 23:00 07:00 Intake Total 400 ml 350 ml Output Total 1 ml 265 ml Balance 399 ml 85 ml Exam Free Text/Dictation A&Ox3 CTAB, Left chest pacemaker, Right IJ Alfredo Catheter S1S2 Present Soft NTND BS+ Bilateral upper extremity: Palpable brachial pulse, motor/sensory intact, cap refill 2-3 seconds, ecchymosis from puncture sites for blood draws and IV lines Results Result Diagram: 03/25/17 0545 03/25/17 0545 LORENZO CHAO MD Mar 25, 2017 09:46
--- NOTE | 2017-03-25 09:46 | CONS ---
Date/Time of Note Date/Time of Note DATE: 03/25/17 TIME: 09:46 Assessment/Plan Assessment/Plan Chief Complaint/Hosp Course -ESRD: It seems the patients renal failure has progressed to ESRD. Will schedule to have the Alfredo changed to Perm Catheter and eventual Fistula creation as outpt. -Will obtain vein mapping -Optimize Vascular status -Discussed findings, plan and management with the patient and he understands -Thank you for allowing us to partake in the care of your patient, please call with any questions Problems: Consultation Date/Type/Reason Admit Date/Time Mar 20, 2017 at 15:32 Hx of Present Illness -ESRD: It seems the patients renal failure has progressed to ESRD. Will schedule to have the Alfredo changed to Perm Catheter and eventual Fistula creation as outpt. -Will obtain vein mapping -Optimize Vascular status -Discussed findings, plan and management with the patient and he understands -Thank you for allowing us to partake in the care of your patient, please call with any questions Constitutional: improved, no complaints Eyes: no complaints ENT: no complaints Respiratory: No cough, No shortness of breath Cardiovascular: No chest pain Gastrointestinal: no complaints Genitourinary: no complaints Musculoskeletal: no complaints Skin: no complaints Neurologic: no complaints Endocrine: no complaints Lymphatic: no complaints Psychological: no complaints Immunologic: no complaints Past Medical History Medical History: congestive heart failure, coronary artery disease, diabetes, high cholesterol, hypertension, hypothyroid, renal disease, other (myelofibrosis , kidney stones, spinal stenosis, SVT, deformity of lower leg, gout, SBO) Past Surgical History Past Surgical Hx: angioplasty, appendectomy, coronary bypass surgery, other ( spinal surgery) Social History Alcohol Use: occasionally Smoking Status: Former smoker (1.5 ppd x 15 y) Drug Use: none Exam/Review of Systems Vital Signs Vitals Vital Signs Date Time Temp Pulse Resp B/P Pulse Ox O2 Delivery O2 Flow Rate FiO2 03/25/17 07:16 98.0 76 18 129/63 98 03/24/17 20:00 Nasal Cannula 2.0 03/24/17 17:28 21 Intake and Output 03/24/17 03/24/17 03/25/17 15:00 23:00 07:00 Intake Total 400 ml 350 ml Output Total 1 ml 265 ml Balance 399 ml 85 ml Results Result Diagram: 03/25/17 0545 03/25/17 0545 Results 24 hrs Laboratory Tests Test 03/24/17 11:30 03/24/17 11:43 03/24/17 17:14 03/24/17 20:39 Urine Color YELLOW Urine Clarity SLIGHTLY CLOUDY A Urine pH 5.0 Urine Specific [place] 1.021 Urine Ketones NEGATIVE Urine Nitrite NEGATIVE Urine Bilirubin NEGATIVE Urine Urobilinogen NEGATIVE Urine Leukocyte Esterase 1+ H Urine Microscopic RBC 22 H Urine Microscopic WBC 4 Urine Hemoglobin 3+ H Urine Glucose NEGATIVE Urine Total Protein 1+ H Bedside Glucose 195 107 88 Test 03/25/17 05:45 03/25/17 07:27 White Blood Count 5.3 Red Blood Count 3.31 L Hemoglobin 9.5 L Hematocrit 28.8 L Mean Corpuscular Volume 87.0 Mean Corpuscular Hemoglobin 28.7 L Mean Corpuscular Hemoglobin Concent 33.0 Red Cell Distribution Width 15.9 H Platelet Count 66 L Mean Platelet Volume 12.7 H Neutrophils % 73.9 Lymphocytes % 12.8 L Monocytes % 10.3 Eosinophils % 1.5 Basophils % 0.2 Nucleated Red Blood Cells % 0.0 Neutrophils # 3.9 Lymphocytes # 0.7 L Monocytes # 0.6 Eosinophils # 0.1 Basophils # 0.0 Nucleated Red Blood Cells # 0.0 Sodium Level 131 L Potassium Level 4.0 Chloride Level 89 L Carbon Dioxide Level 24 Anion Gap 22 H Blood Urea Nitrogen 64 H Creatinine 3.77 H Glucose Level 103 Calcium Level 9.0 Total Bilirubin 0.3 Direct Bilirubin 0.00 Indirect Bilirubin 0.3 Aspartate Amino Transf (AST/SGOT) 104 H Alanine Aminotransferase (ALT/SGPT) 218 H Alkaline Phosphatase 27 L Total Protein 6.8 Albumin 4.4 Globulin 2.40 Albumin/Globulin Ratio 1.83 Bedside Glucose 121 Medications Medications Current Medications Acetaminophen (Tylenol Tab) 650 mg Q6H PRN PO PAIN LEVEL 1-3 OR FEVER; Start at 17:00 Docusate Sodium (Colace) 100 mg Q12H PRN PO CONSTIPATION Last administered on 12:18; Admin Dose 100 MG; Start 03/20/17 at 17:00 Allopurinol (Zyloprim) 200 mg DAILY PO Last administered on 03/24/17 09:35; Admin Dose 200 MG; Start 03/21/17 at 09:00 Amlodipine Besylate (Norvasc) 5 mg DAILY PO Last administered on 03/24/17 09:36 ; Admin Dose 5 MG; Start 03/20/17 at 17:00 Clopidogrel Bisulfate (plaVIX) 75 mg DAILY PO Last administered on 03/24/17 09: 36; Admin Dose 75 MG; Start 03/21/17 at 09:00 Fenofibrate (Tricor) 145 mg DAILY PO Last administered on 03/24/17 09:36; Admin Dose 145 MG; Start 03/21/17 at 09:00 Levothyroxine Sodium (Synthroid) 50 mcg DAILY PO Last administered on 03/24/17 09:36; Admin Dose 50 MCG; Start 03/21/17 at 09:00 Metoprolol Succinate (Toprol Xl) 50 mg BID PO Last administered on 03/24/17 20: 41; Admin Dose 50 MG; Start 03/20/17 at 21:00 Cholecalciferol (Vitamin D) 2,000 unit DAILY PO Last administered on 03/24/17 09:35; Admin Dose 2,000 UNIT; Start 03/21/17 at 09:00 Pantoprazole (Protonix Tab) 40 mg DAILY@06 PO Last administered on 03/25/17 06: 00; Admin Dose 40 MG; Start 03/21/17 at 06:00 Miscellaneous Information 1 ea NOTE XX ; Start 03/20/17 at 17:30 Glucose (Glutose) 15 gm Q15M PRN PO DECREASED GLUCOSE; Start 03/20/17 at 17:30 Glucose (Glutose) 22.5 gm Q15M PRN PO DECREASED GLUCOSE; Start 03/20/17 at 17: 30 Dextrose (D50w Syringe) 25 ml Q15M PRN IV DECREASED GLUCOSE; Start 03/20/17 at 17:30 Dextrose (D50w Syringe) 50 ml Q15M PRN IV DECREASED GLUCOSE; Start 03/20/17 at 17:30 Glucagon (Glucagen) 1 mg Q15M PRN IM DECREASED GLUCOSE; Start 03/20/17 at 17:30 Glucose (Glutose) 15 gm Q15M PRN BUCCAL DECREASED GLUCOSE; Start 03/20/17 at 17 :30 Patient Own Medication 1 ea BID PO Last administered on 03/24/17 20:41; Admin Dose 1 EA; Start 03/20/17 at 21:00 Aspirin (Aspirin) 81 mg DAILY PO Last administered on 03/24/17 09:35; Admin Dose 81 MG; Start 03/21/17 at 13:30 Multivit/Ca Carb/ B Cmplx/FA/Prenat (Nadiya-Ozzie) 1 tab DAILY PO Last administered on 03/24/17 09:36; Admin Dose 1 TAB; Start 03/22/17 at 09:00 Epoetin Magdiel (Epogen (Esrd)) 10,000 units MoWeFr@17 SC Last administered on 16:42; Admin Dose 10,000 UNITS; Start 03/22/17 at 17:00 Oxycodone/ Acetaminophen (Percocet (5/ 325)) 1 tab Q4H PRN PO REPORTED NON- CARDIAC PAIN 4-7; Start 03/22/17 at 19:30 Al Hydrox/Mg Hydrox/Simethicone (Mag-Al Plus) 30 ml Q4H PRN PO GASTROINTESTINAL UPSET; Start 03/22/17 at 19:30 Ondansetron HCl (Zofran Inj) 4 mg Q4H PRN IV NAUSEA AND/OR VOMITING; Start at 19:30 Insulin Detemir (Levemir) 12 unit DAILY@20 SC Last administered on 03/24/17 21: 13; Admin Dose 12 UNIT; Start 03/23/17 at 20:00 Isosorbide Dinitrate (Isordil) 10 mg BID PO Last administered on 03/24/17 20:41 ; Admin Dose 10 MG; Start 03/24/17 at 21:00 LORENZO CHAO MD Mar 25, 2017 09:46
[2017-03-25] MEDS: JAKAFI 5 MG PO SCH (16:00)
[2017-03-25] MEDS: MULTIVIT/CA CARB/B CMPLX/FA TAB PO SCH (16:41)
[2017-03-25] MEDS: LEVOTHYROXINE 50 MCG TAB PO SCH (16:42)
[2017-03-25] MEDS: CHOLECALCIFEROL 2,000 UNIT CAP PO SCH (16:42)
[2017-03-25] MEDS: ALLOPURINOL 100 MG TAB PO SCH (16:43)
[2017-03-25] MEDS: CLOPIDOGREL 75 MG TAB PO SCH (16:43)
[2017-03-25] MEDS: ASPIRIN 81 MG TAB PO SCH (16:44)
[2017-03-25] MEDS: ISOSORBIDE DINITRATE 10 MG TAB PO SCH ×2 (16:44→21:09)
[2017-03-25] MEDS: FENOFIBRATE 145 MG TAB PO SCH (16:45)
[2017-03-25] MEDS: EPOETIN 10000 UNITS/1 ML INJ (ESRD) SC SCH (17:00)
--- NOTE | 2017-03-25 18:15 | PN ---
Date/Time of Note Date/Time of Note DATE: 03/25/17 TIME: 18:05 Assessment/Plan VTE Prophylaxis VTE Prophylaxis Intervention: anti-embolic stocking Lines/Catheters [facility] Peripheral IV Urinary Cath still in place: No Assessment/Plan Chief Complaint/Hosp Course Pt has hx of myelofibrosis and is taking Jakafi. Admitted with c/o difficulty sleeping and orthopnea/PND. Pt has undergone coronary angiography with angioplasty and stent placement. Symptoms improved. Plt ct lower than usual on admit. . Problems: (1) Thrombocytopenia Status: Acute (2) Myelofibrosis Status: Chronic (3) Acute on chronic renal failure (4) Arteriosclerosis of coronary artery in patient with history of myocardial infarction Status: Chronic Assessment/Plan Platelet count has decreased slightly. Concerned that this may be related to Jakafi. Will D/C Jakafi and if platelets recover will then resume at a decreased dose. Pt is also scheduled to have a tunneled catheter placed for dialysis on 03/27. Although platelets are quantitatively adequate, will give platelet transfusion prior to the procedure to provide platelets not affected by azotemia. Subjective 24 Hr Interval Summary Free Text/Dictation Pt has no new complaints. Did undergo dialysis today. Has no c/o chest pain or SOB. No orthopnea or PND. Exam/Review of Systems Vital Signs Vitals Vital Signs Date Time Temp Pulse Resp B/P Pulse Ox O2 Delivery O2 Flow Rate FiO2 03/25/17 16:25 84 03/25/17 16:19 24 03/25/17 15:38 97.8 116/64 96 03/24/17 20:00 Nasal Cannula 2.0 03/24/17 17:28 21 Intake and Output 03/24/17 03/24/17 03/25/17 15:00 23:00 07:00 Intake Total 400 ml 350 ml Output Total 1 ml 265 ml Balance 399 ml 85 ml Exam Constitutional: alert, oriented, well developed Head: atraumatic, normocephalic Eyes: EOMI, nl conjunctiva ENMT: mucosa pink and moist, other (Nasal O2 inplace) Neck: non-tender, other (Rt IJ catheter), supple Respiratory: clear to auscultation, normal air movement Cardiovascular: nl pulses, other (sternotomy scar), regular rate and rhythm Gastrointestinal: nl liver, spleen, non-tender, soft Musculoskeletal: nl extremities to inspection Extremities: normal pulses 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: RADIO RIGGER II-XII intact, nl mental status Skin: other (diffuse ecchy and purpura--especially on arms.) Lymph: nl lymph nodes Results Result Diagram: 03/25/17 0545 03/25/17 0545 Results 24 hrs Laboratory Tests Test 03/24/17 20:39 03/25/17 05:45 03/25/17 07:27 03/25/17 12:23 Bedside Glucose 88 121 185 White Blood Count 5.3 Red Blood Count 3.31 L Hemoglobin 9.5 L Hematocrit 28.8 L Mean Corpuscular Volume 87.0 Mean Corpuscular Hemoglobin 28.7 L Mean Corpuscular Hemoglobin Concent 33.0 Red Cell Distribution Width 15.9 H Platelet Count 66 L Mean Platelet Volume 12.7 H Neutrophils % 73.9 Lymphocytes % 12.8 L Monocytes % 10.3 Eosinophils % 1.5 Basophils % 0.2 Nucleated Red Blood Cells % 0.0 Neutrophils # 3.9 Lymphocytes # 0.7 L Monocytes # 0.6 Eosinophils # 0.1 Basophils # 0.0 Nucleated Red Blood Cells # 0.0 Sodium Level 131 L Potassium Level 4.0 Chloride Level 89 L Carbon Dioxide Level 24 Anion Gap 22 H Blood Urea Nitrogen 64 H Creatinine 3.77 H Glucose Level 103 Calcium Level 9.0 Total Bilirubin 0.3 Direct Bilirubin 0.00 Indirect Bilirubin 0.3 Aspartate Amino Transf (AST/SGOT) 104 H Alanine Aminotransferase (ALT/SGPT) 218 H Alkaline Phosphatase 27 L Total Protein 6.8 Albumin 4.4 Globulin 2.40 Albumin/Globulin Ratio 1.83 Test 03/25/17 17:42 Bedside Glucose 122 Medications Medications Current Medications Acetaminophen (Tylenol Tab) 650 mg Q6H PRN PO PAIN LEVEL 1-3 OR FEVER; Start at 17:00 Docusate Sodium (Colace) 100 mg Q12H PRN PO CONSTIPATION Last administered on 12:18; Admin Dose 100 MG; Start 03/20/17 at 17:00 Allopurinol (Zyloprim) 200 mg DAILY PO Last administered on 03/25/17 16:43; Admin Dose 200 MG; Start 03/21/17 at 09:00 Amlodipine Besylate (Norvasc) 5 mg DAILY PO Last administered on 03/24/17 09:36 ; Admin Dose 5 MG; Start 03/20/17 at 17:00 Clopidogrel Bisulfate (plaVIX) 75 mg DAILY PO Last administered on 03/25/17 16: 43; Admin Dose 75 MG; Start 03/21/17 at 09:00 Fenofibrate (Tricor) 145 mg DAILY PO Last administered on 03/25/17 16:45; Admin Dose 145 MG; Start 03/21/17 at 09:00 Levothyroxine Sodium (Synthroid) 50 mcg DAILY PO Last administered on 03/25/17 16:42; Admin Dose 50 MCG; Start 03/21/17 at 09:00 Metoprolol Succinate (Toprol Xl) 50 mg BID PO Last administered on 03/24/17 20: 41; Admin Dose 50 MG; Start 03/20/17 at 21:00 Cholecalciferol (Vitamin D) 2,000 unit DAILY PO Last administered on 03/25/17 16:42; Admin Dose 2,000 UNIT; Start 03/21/17 at 09:00 Pantoprazole (Protonix Tab) 40 mg DAILY@06 PO Last administered on 03/25/17 06: 00; Admin Dose 40 MG; Start 03/21/17 at 06:00 Miscellaneous Information 1 ea NOTE XX ; Start 03/20/17 at 17:30 Glucose (Glutose) 15 gm Q15M PRN PO DECREASED GLUCOSE; Start 03/20/17 at 17:30 Glucose (Glutose) 22.5 gm Q15M PRN PO DECREASED GLUCOSE; Start 03/20/17 at 17: 30 Dextrose (D50w Syringe) 25 ml Q15M PRN IV DECREASED GLUCOSE; Start 03/20/17 at 17:30 Dextrose (D50w Syringe) 50 ml Q15M PRN IV DECREASED GLUCOSE; Start 03/20/17 at 17:30 Glucagon (Glucagen) 1 mg Q15M PRN IM DECREASED GLUCOSE; Start 03/20/17 at 17:30 Glucose (Glutose) 15 gm Q15M PRN BUCCAL DECREASED GLUCOSE; Start 03/20/17 at 17 :30 Patient Own Medication 1 ea BID PO Last administered on 03/25/17 16:00; Admin Dose 1 EA; Start 03/20/17 at 21:00 Aspirin (Aspirin) 81 mg DAILY PO Last administered on 03/25/17 16:44; Admin Dose 81 MG; Start 03/21/17 at 13:30 Multivit/Ca Carb/ B Cmplx/FA/Prenat (Nadiya-Ozzie) 1 tab DAILY PO Last administered on 03/25/17 16:41; Admin Dose 1 TAB; Start 03/22/17 at 09:00 Epoetin Magdiel (Epogen (Esrd)) 10,000 units MoWeFr@17 SC Last administered on 16:42; Admin Dose 10,000 UNITS; Start 03/22/17 at 17:00 Oxycodone/ Acetaminophen (Percocet (5/ 325)) 1 tab Q4H PRN PO REPORTED NON- CARDIAC PAIN 4-7; Start 03/22/17 at 19:30 Al Hydrox/Mg Hydrox/Simethicone (Mag-Al Plus) 30 ml Q4H PRN PO GASTROINTESTINAL UPSET; Start 03/22/17 at 19:30 Ondansetron HCl (Zofran Inj) 4 mg Q4H PRN IV NAUSEA AND/OR VOMITING; Start at 19:30 Insulin Detemir (Levemir) 12 unit DAILY@20 SC Last administered on 03/24/17 21: 13; Admin Dose 12 UNIT; Start 03/23/17 at 20:00 Isosorbide Dinitrate (Isordil) 10 mg BID PO Last administered on 03/25/17 16:44 ; Admin Dose 10 MG; Start 03/24/17 at 21:00 DARNELL AMARAL MD Mar 25, 2017 18:14
--- NOTE | 2017-03-25 19:03 | CONS ---
Date/Time of Note Date/Time of Note DATE: 03/25/17 TIME: 19:01 Assessment/Plan Assessment/Plan Problems: (1) Type 2 diabetes mellitus without complications Status: Chronic Comment: Pt. doing well over all from glycemic standpoint. May require slightly higher dosage of mealtime insulin for breakfast (based on lunchtime blood glucose levels 2 days in a row) and may require slightly lower mealtime insulin dosage for dinner (based on bedtime glucose levels last night) but will wait one more day to evaluate this. Qualifiers: Diabetes mellitus supervisor long goods insulin use: with senior living use Qualified Code : E11.9 - Type 2 diabetes mellitus without complication, with long-term current use of insulin Consultation Date/Type/Reason Admit Date/Time Mar 20, 2017 at 15:32 Initial Consult Date 03/23/17 Type of Consultation: Endocrinology Reason for Consultation T2DM management Referring Provider: JULIANNE ESTRELLA MD 24 HR Interval Summary Constitutional: improved, no complaints Detailed Summary Respiratory: no complaints Cardiovascular: no complaints Gastrointestinal: no complaints Genitourinary: no complaints Musculoskeletal: no complaints Neurologic: no complaints Exam/Review of Systems Vital Signs Vitals VS - Last 72 Hours, by Label Date Time Temp Pulse Resp B/P Pulse Ox O2 Delivery O2 Flow Rate FiO2 03/25/17 16:25 84 03/25/17 16:19 78 24 03/25/17 16:15 88 03/25/17 15:48 89 03/25/17 15:38 97.8 78 19 116/64 96 03/25/17 15:31 88 03/25/17 15:12 87 03/25/17 14:50 85 03/25/17 14:23 84 03/25/17 13:50 80 03/25/17 13:25 75 22 03/25/17 13:25 82 03/25/17 12:34 75 03/25/17 11:09 98.4 76 18 112/59 92 03/25/17 08:14 77 03/25/17 07:16 98.0 76 18 129/63 98 03/25/17 04:03 70 03/25/17 03:57 97.6 75 18 103/62 97 03/25/17 00:16 75 03/25/17 00:00 97.2 83 18 116/56 99 03/24/17 20:02 75 03/24/17 20:00 Nasal Cannula 2.0 03/24/17 19:58 97.6 75 18 109/69 98 03/24/17 18:58 Nasal Cannula 2.0 03/24/17 17:28 96 21 03/24/17 16:20 82 03/24/17 15:05 98.1 84 19 107/57 98 03/24/17 12:49 77 03/24/17 11:13 98.1 75 19 105/58 95 03/24/17 08:49 73 03/24/17 07:23 98.3 69 19 115/75 95 03/24/17 04:02 72 03/24/17 04:00 98.2 76 20 105/58 96 Nasal Cannula 2.0 03/24/17 00:02 75 03/23/17 23:56 98.0 78 19 114/62 100 03/23/17 21:00 2.0 03/23/17 20:02 98.1 84 18 127/69 100 03/23/17 20:00 80 03/23/17 20:00 Nasal Cannula 2.0 03/23/17 19:58 80 03/23/17 18:03 100 2.0 28 03/23/17 18:00 85 21 124/86 95 03/23/17 17:51 77 24 03/23/17 17:45 81 03/23/17 17:23 86 03/23/17 17:05 77 03/23/17 17:00 83 19 144/73 96 03/23/17 16:46 76 03/23/17 16:44 78 03/23/17 16:14 79 03/23/17 16:00 97.4 77 21 117/70 97 Nasal Cannula 2.0 03/23/17 15:57 76 03/23/17 15:56 100 2.0 28 03/23/17 15:35 75 03/23/17 15:35 75 26 03/23/17 15:00 75 26 115/67 88 03/23/17 14:00 77 25 105/68 99 03/23/17 13:00 80 21 117/63 100 2.0 03/23/17 12:45 76 03/23/17 12:00 97.8 76 21 110/67 100 Nasal Cannula 2.0 03/23/17 12:00 100 2.0 28 03/23/17 11:00 78 24 106/73 100 2.0 03/23/17 10:00 83 28 117/65 99 2.0 03/23/17 09:00 76 24 116/70 100 2.0 03/23/17 08:28 74 03/23/17 08:00 Nasal Cannula 2.0 03/23/17 08:00 100 2.0 28 03/23/17 08:00 97.4 73 26 112/72 100 Nasal Cannula 2.0 03/23/17 07:00 73 25 122/70 90 03/23/17 06:00 72 20 114/68 100 03/23/17 05:44 2.0 03/23/17 05:00 72 16 114/70 100 03/23/17 04:25 74 03/23/17 04:00 98.6 76 20 115/105 99 03/23/17 03:00 76 26 118/71 97 03/23/17 02:00 74 20 105/59 100 03/23/17 01:00 75 19 102/55 99 03/23/17 00:09 75 03/23/17 00:00 98.0 75 20 113/71 100 03/22/17 23:59 100 2.0 03/22/17 21:00 80 23 110/64 99 03/22/17 20:30 78 21 108/66 96 Nasal Cannula 2.0 03/22/17 20:15 79 24 122/63 95 Nasal Cannula 2.0 03/22/17 20:04 81 03/22/17 20:02 80 03/22/17 20:00 83 22 120/71 97 Nasal Cannula 2.0 03/22/17 20:00 Nasal Cannula 2.0 03/22/17 19:45 81 23 128/66 99 Nasal Cannula 2.0 03/22/17 19:39 97.9 89 20 126/70 98 Nasal Cannula 2.0 Vital Signs Date Time Temp Pulse Resp B/P Pulse Ox O2 Delivery O2 Flow Rate FiO2 03/25/17 16:25 84 03/25/17 16:19 24 03/25/17 15:38 97.8 116/64 96 03/24/17 20:00 Nasal Cannula 2.0 03/24/17 17:28 21 Intake and Output 03/24/17 03/24/17 03/25/17 15:00 23:00 07:00 Intake Total 400 ml 350 ml Output Total 1 ml 265 ml Balance 399 ml 85 ml Exam Constitutional: alert, frail, oriented Psych: nl mood/affect, no complaints Respiratory: crackles/rales Cardiovascular: nl pulses, regular rate and rhythm, No edema, No murmurs/extra sounds, No rub Gastrointestinal: bowel sounds, nl liver, spleen, non-tender, soft, No mass, No rebound or guarding Musculoskeletal: nl extremities to inspection Extremities: normal pulses, No clubbing, No cyanosis, No edema 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: BOOKS BINDER II-XII intact, nl mental status, nl speech, nl strength Additional Comments Bedside Glucose - 72 Hours Test 03/22/17 20:12 03/23/17 08:16 03/23/17 12:02 03/23/17 17:30 Bedside Glucose 103mg/dL (70-220) 93mg/dL (70-220) 147mg/dL (70-220) 142mg/dL (70-220) Test 03/23/17 21:16 03/24/17 07:50 03/24/17 11:43 03/24/17 17:14 Bedside Glucose 135mg/dL (70-220) 100mg/dL (70-220) 195mg/dL (70-220) 107mg/dL (70-220) Test 03/24/17 20:39 03/25/17 07:27 03/25/17 12:23 03/25/17 17:42 Bedside Glucose 88mg/dL (70-220) 121mg/dL (70-220) 185mg/dL (70-220) 122mg/dL (70-220) Results Result Diagram: 03/25/17 0545 03/25/17 0545 Results 24 hrs Laboratory Tests Test 03/24/17 20:39 03/25/17 05:45 03/25/17 07:27 03/25/17 12:23 Bedside Glucose 88 121 185 White Blood Count 5.3 Red Blood Count 3.31 L Hemoglobin 9.5 L Hematocrit 28.8 L Mean Corpuscular Volume 87.0 Mean Corpuscular Hemoglobin 28.7 L Mean Corpuscular Hemoglobin Concent 33.0 Red Cell Distribution Width 15.9 H Platelet Count 66 L Mean Platelet Volume 12.7 H Neutrophils % 73.9 Lymphocytes % 12.8 L Monocytes % 10.3 Eosinophils % 1.5 Basophils % 0.2 Nucleated Red Blood Cells % 0.0 Neutrophils # 3.9 Lymphocytes # 0.7 L Monocytes # 0.6 Eosinophils # 0.1 Basophils # 0.0 Nucleated Red Blood Cells # 0.0 Sodium Level 131 L Potassium Level 4.0 Chloride Level 89 L Carbon Dioxide Level 24 Anion Gap 22 H Blood Urea Nitrogen 64 H Creatinine 3.77 H Glucose Level 103 Calcium Level 9.0 Total Bilirubin 0.3 Direct Bilirubin 0.00 Indirect Bilirubin 0.3 Aspartate Amino Transf (AST/SGOT) 104 H Alanine Aminotransferase (ALT/SGPT) 218 H Alkaline Phosphatase 27 L Total Protein 6.8 Albumin 4.4 Globulin 2.40 Albumin/Globulin Ratio 1.83 Test 03/25/17 17:42 Bedside Glucose 122 Medications Medications Current Medications Acetaminophen (Tylenol Tab) 650 mg Q6H PRN PO PAIN LEVEL 1-3 OR FEVER; Start at 17:00 Docusate Sodium (Colace) 100 mg Q12H PRN PO CONSTIPATION Last administered on 12:18; Admin Dose 100 MG; Start 03/20/17 at 17:00 Allopurinol (Zyloprim) 200 mg DAILY PO Last administered on 03/25/17 16:43; Admin Dose 200 MG; Start 03/21/17 at 09:00 Amlodipine Besylate (Norvasc) 5 mg DAILY PO Last administered on 03/24/17 09:36 ; Admin Dose 5 MG; Start 03/20/17 at 17:00 Clopidogrel Bisulfate (plaVIX) 75 mg DAILY PO Last administered on 03/25/17 16: 43; Admin Dose 75 MG; Start 03/21/17 at 09:00 Fenofibrate (Tricor) 145 mg DAILY PO Last administered on 03/25/17 16:45; Admin Dose 145 MG; Start 03/21/17 at 09:00 Levothyroxine Sodium (Synthroid) 50 mcg DAILY PO Last administered on 03/25/17 16:42; Admin Dose 50 MCG; Start 03/21/17 at 09:00 Metoprolol Succinate (Toprol Xl) 50 mg BID PO Last administered on 03/24/17 20: 41; Admin Dose 50 MG; Start 03/20/17 at 21:00 Cholecalciferol (Vitamin D) 2,000 unit DAILY PO Last administered on 03/25/17 16:42; Admin Dose 2,000 UNIT; Start 03/21/17 at 09:00 Pantoprazole (Protonix Tab) 40 mg DAILY@06 PO Last administered on 03/25/17 06: 00; Admin Dose 40 MG; Start 03/21/17 at 06:00 Miscellaneous Information 1 ea NOTE XX ; Start 03/20/17 at 17:30 Glucose (Glutose) 15 gm Q15M PRN PO DECREASED GLUCOSE; Start 03/20/17 at 17:30 Glucose (Glutose) 22.5 gm Q15M PRN PO DECREASED GLUCOSE; Start 03/20/17 at 17: 30 Dextrose (D50w Syringe) 25 ml Q15M PRN IV DECREASED GLUCOSE; Start 03/20/17 at 17:30 Dextrose (D50w Syringe) 50 ml Q15M PRN IV DECREASED GLUCOSE; Start 03/20/17 at 17:30 Glucagon (Glucagen) 1 mg Q15M PRN IM DECREASED GLUCOSE; Start 03/20/17 at 17:30 Glucose (Glutose) 15 gm Q15M PRN BUCCAL DECREASED GLUCOSE; Start 03/20/17 at 17 :30 Aspirin (Aspirin) 81 mg DAILY PO Last administered on 03/25/17 16:44; Admin Dose 81 MG; Start 03/21/17 at 13:30 Multivit/Ca Carb/ B Cmplx/FA/Prenat (Nadiya-Ozzie) 1 tab DAILY PO Last administered on 03/25/17 16:41; Admin Dose 1 TAB; Start 03/22/17 at 09:00 Epoetin Magdiel (Epogen (Esrd)) 10,000 units MoWeFr@17 SC Last administered on 03/25 17:00; Admin Dose 10,000 UNITS; Start 03/22/17 at 17:00 Oxycodone/ Acetaminophen (Percocet (5/ 325)) 1 tab Q4H PRN PO REPORTED NON- CARDIAC PAIN 4-7; Start 03/22/17 at 19:30 Al Hydrox/Mg Hydrox/Simethicone (Mag-Al Plus) 30 ml Q4H PRN PO GASTROINTESTINAL UPSET; Start 03/22/17 at 19:30 Ondansetron HCl (Zofran Inj) 4 mg Q4H PRN IV NAUSEA AND/OR VOMITING; Start at 19:30 Insulin Detemir (Levemir) 12 unit DAILY@20 SC Last administered on 03/24/17 21: 13; Admin Dose 12 UNIT; Start 03/23/17 at 20:00 Isosorbide Dinitrate (Isordil) 10 mg BID PO Last administered on 03/25/17 16:44 ; Admin Dose 10 MG; Start 03/24/17 at 21:00 JACQUES KATZ MD Mar 25, 2017 19:03
--- NOTE | 2017-03-25 20:57 | RADRPT ---
Vent Rate: 74 bpm RR Interval: 0 msec MS Interval: 146 msec QRS Duration: 174 msec QT Interval: 476 msec QTC Interval: 528 msec P-R-T [place]: 24 - -55 - 146 degrees Normal sinus rhythm Left axis deviation Nonspecific intraventricular block Abnormal ECG Electronically Signed By: Elder Cavazos [id number]
[2017-03-25] MEDS: INSULIN DETEMIR [LEVEMIR] 3ML CART SC SCH (21:16)
--- NOTE | 2017-03-25 22:46 | CONS ---
Date/Time of Note Date/Time of Note DATE: 03/25/17 TIME: 22:41 Assessment/Plan Assessment/Plan Chief Complaint/Hosp Course Impression: - NSTEMI- recurrent, has occluded LM with un revascularized area of distal LCx and Proximal LAD. 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 pt s/p PCI with INGA x 1 to SVG-OM1 mid graft stenosis with good result. - CKD- iHD initiated via R IJ catheter for fluid mgmt - port to be placed for more stable access - Acute on chronic systolic heart failure- likely related to ESRD and fluid overload, fluid mgmt with iHD - s/p ICD normal fxn, h/o VT/VF - Myleofibrosis with anemia s/p transfusion, also now thrombocytopenia, will need to cont asa/plavix given PCI with INGA. ok to hold heparin products Recommendations: - cont asa 81mg daily - cont plavix 75 mg daily - cont metoprolol as tolerated - cont nitrate given area of LCx/LAD territory that can not be revascularized Problems: Consultation Date/Type/Reason Admit Date/Time Mar 20, 2017 at 15:32 Initial Consult Date 03/22/17 Type of Consultation: cardiology Referring Provider: JULIANNE ESTRELLA MD 24 HR Interval Summary Free Text/Dictation no acute events. pt denies cp/sob. tolerating iHD today. no palpitaitons, dizziness. bp stable. does report easy bruising tele reviewed: no events. Detailed Summary ENT: no complaints Respiratory: no complaints Cardiovascular: no complaints Gastrointestinal: no complaints Exam/Review of Systems Vital Signs Vitals Vital Signs Date Time Temp Pulse Resp B/P Pulse Ox O2 Delivery O2 Flow Rate FiO2 03/25/17 20:18 97.5 80 20 111/65 100 03/24/17 20:00 Nasal Cannula 2.0 03/24/17 17:28 21 Intake and Output 03/24/17 03/24/17 03/25/17 15:00 23:00 07:00 Intake Total 400 ml 350 ml Output Total 1 ml 265 ml Balance 399 ml 85 ml Exam Constitutional: alert, oriented Psych: no complaints Head: normocephalic Eyes: nl conjunctiva ENMT: nl external ears & nose Neck: jvd (8-10) Gastrointestinal: non-tender, soft Musculoskeletal: nl extremities to inspection Skin: L shoulder bruising, R groin mild bruising, no hematoma or ttp Results Result Diagram: 03/25/17 0545 03/25/17 0545 Results 24 hrs Laboratory Tests Test 03/25/17 05:45 03/25/17 07:27 03/25/17 12:23 03/25/17 17:42 White Blood Count 5.3 Red Blood Count 3.31 L Hemoglobin 9.5 L Hematocrit 28.8 L Mean Corpuscular Volume 87.0 Mean Corpuscular Hemoglobin 28.7 L Mean Corpuscular Hemoglobin Concent 33.0 Red Cell Distribution Width 15.9 H Platelet Count 66 L Mean Platelet Volume 12.7 H Neutrophils % 73.9 Lymphocytes % 12.8 L Monocytes % 10.3 Eosinophils % 1.5 Basophils % 0.2 Nucleated Red Blood Cells % 0.0 Neutrophils # 3.9 Lymphocytes # 0.7 L Monocytes # 0.6 Eosinophils # 0.1 Basophils # 0.0 Nucleated Red Blood Cells # 0.0 Sodium Level 131 L Potassium Level 4.0 Chloride Level 89 L Carbon Dioxide Level 24 Anion Gap 22 H Blood Urea Nitrogen 64 H Creatinine 3.77 H Glucose Level 103 Calcium Level 9.0 Total Bilirubin 0.3 Direct Bilirubin 0.00 Indirect Bilirubin 0.3 Aspartate Amino Transf (AST/SGOT) 104 H Alanine Aminotransferase (ALT/SGPT) 218 H Alkaline Phosphatase 27 L Total Protein 6.8 Albumin 4.4 Globulin 2.40 Albumin/Globulin Ratio 1.83 Bedside Glucose 121 185 122 Test 03/25/17 21:06 Bedside Glucose 102 Medications Medications Current Medications Acetaminophen (Tylenol Tab) 650 mg Q6H PRN PO PAIN LEVEL 1-3 OR FEVER; Start at 17:00 Docusate Sodium (Colace) 100 mg Q12H PRN PO CONSTIPATION Last administered on 12:18; Admin Dose 100 MG; Start 03/20/17 at 17:00 Allopurinol (Zyloprim) 200 mg DAILY PO Last administered on 03/25/17 16:43; Admin Dose 200 MG; Start 03/21/17 at 09:00 Amlodipine Besylate (Norvasc) 5 mg DAILY PO Last administered on 03/24/17 09:36 ; Admin Dose 5 MG; Start 03/20/17 at 17:00 Clopidogrel Bisulfate (plaVIX) 75 mg DAILY PO Last administered on 03/25/17 16: 43; Admin Dose 75 MG; Start 03/21/17 at 09:00 Fenofibrate (Tricor) 145 mg DAILY PO Last administered on 03/25/17 16:45; Admin Dose 145 MG; Start 03/21/17 at 09:00 Levothyroxine Sodium (Synthroid) 50 mcg DAILY PO Last administered on 03/25/17 16:42; Admin Dose 50 MCG; Start 03/21/17 at 09:00 Metoprolol Succinate (Toprol Xl) 50 mg BID PO Last administered on 03/25/17 21: 09; Admin Dose 50 MG; Start 03/20/17 at 21:00 Cholecalciferol (Vitamin D) 2,000 unit DAILY PO Last administered on 03/25/17 16:42; Admin Dose 2,000 UNIT; Start 03/21/17 at 09:00 Pantoprazole (Protonix Tab) 40 mg DAILY@06 PO Last administered on 03/25/17 06: 00; Admin Dose 40 MG; Start 03/21/17 at 06:00 Miscellaneous Information 1 ea NOTE XX ; Start 03/20/17 at 17:30 Glucose (Glutose) 15 gm Q15M PRN PO DECREASED GLUCOSE; Start 03/20/17 at 17:30 Glucose (Glutose) 22.5 gm Q15M PRN PO DECREASED GLUCOSE; Start 03/20/17 at 17: 30 Dextrose (D50w Syringe) 25 ml Q15M PRN IV DECREASED GLUCOSE; Start 03/20/17 at 17:30 Dextrose (D50w Syringe) 50 ml Q15M PRN IV DECREASED GLUCOSE; Start 03/20/17 at 17:30 Glucagon (Glucagen) 1 mg Q15M PRN IM DECREASED GLUCOSE; Start 03/20/17 at 17:30 Glucose (Glutose) 15 gm Q15M PRN BUCCAL DECREASED GLUCOSE; Start 03/20/17 at 17 :30 Aspirin (Aspirin) 81 mg DAILY PO Last administered on 03/25/17 16:44; Admin Dose 81 MG; Start 03/21/17 at 13:30 Multivit/Ca Carb/ B Cmplx/FA/Prenat (Nadiya-Ozzie) 1 tab DAILY PO Last administered on 03/25/17 16:41; Admin Dose 1 TAB; Start 03/22/17 at 09:00 Epoetin Magdiel (Epogen (Esrd)) 10,000 units MoWeFr@17 SC Last administered on 03/25 17:00; Admin Dose 10,000 UNITS; Start 03/22/17 at 17:00 Oxycodone/ Acetaminophen (Percocet (5/ 325)) 1 tab Q4H PRN PO REPORTED NON- CARDIAC PAIN 4-7; Start 03/22/17 at 19:30 Al Hydrox/Mg Hydrox/Simethicone (Mag-Al Plus) 30 ml Q4H PRN PO GASTROINTESTINAL UPSET; Start 03/22/17 at 19:30 Ondansetron HCl (Zofran Inj) 4 mg Q4H PRN IV NAUSEA AND/OR VOMITING; Start at 19:30 Insulin Detemir (Levemir) 12 unit DAILY@20 SC Last administered on 03/25/17 21: 16; Admin Dose 12 UNIT; Start 03/23/17 at 20:00 Isosorbide Dinitrate (Isordil) 10 mg BID PO Last administered on 03/25/17 21:09 ; Admin Dose 10 MG; Start 03/24/17 at 21:00 Procedures Procedures ue venous u/s report reviewed in emr SAMY ROSALES Mar 25, 2017 22:46
[2017-03-26] VITALS (13 sets, daily range): BP systolic 100–130; BP diastolic 55–70; PULSE 68–82; RESP 18–20
[2017-03-26] MEDS: PANTOPRAZOLE (EC) 40 MG TAB PO SCH (05:37)
[2017-03-26 06:11] LABS: ADD SCAN DIFF NO
[2017-03-26 06:19] LABS: ABNORMAL IP MESSAGE 1; BASOPHILS % 0.2 % (0.0-2.0); EOSINOPHILS # 0.1 10^3/ul (0.0-0.5); HEMATOCRIT 27.4 % (42.0-52.0); HEMOGLOBIN 9.1 g/dl (14.0-18.0); LYMPHOCYTES # 0.5 10^3/ul (0.8-2.9); MEAN CORPUSCULAR HEMOGLOBIN 29.1 pg (29.0-33.0); MEAN CORPUSCULAR HGB CONC 33.2 g/dl (32.0-37.0); MEAN CORPUSCULAR VOLUME 87.5 fl (82.0-101.0); MEAN PLATELET VOLUME 13.5 fl (7.4-10.4); MONOCYTE # 0.5 10^3/ul (0.3-0.9); MONOCYTES % 9.4 % (0.0-11.0); NEUTROPHIL # 3.7 10^3/ul (1.6-7.5); NEUTROPHILS % 77.6 % (39.0-77.0); PLATELET COUNT 83 10^3/UL (140-415); RED BLOOD COUNT 3.13 10^6/ul (4.70-6.10); RED CELL DISTRIBUTION WIDTH 15.9 % (11.5-14.5); WHITE BLOOD COUNT 4.8 10^3/ul (4.8-10.8)
[2017-03-26 06:44] LABS: CALCIUM 9.3 mg/dl (8.4-10.2); CREATININE 2.97 mg/dl (0.61-1.24); POTASSIUM 3.9 mmol/L (3.5-5.1)
[2017-03-26] MEDS: INSULIN ASPART [NOVOLOG] 3 ML PEN SC SCH ×7 (07:55→21:00)
[2017-03-26] MEDS: AMLODIPINE 5 MG TAB PO SCH (09:00)
[2017-03-26] MEDS: METOPROLOL (XL) 50 MG TAB PO SCH ×2 (09:00→21:14)
[2017-03-26] MEDS: ISOSORBIDE DINITRATE 10 MG TAB PO SCH ×2 (09:05→21:14)
[2017-03-26] MEDS: ASPIRIN 81 MG TAB PO SCH (09:05)
[2017-03-26] MEDS: ALLOPURINOL 100 MG TAB PO SCH (09:06)
[2017-03-26] MEDS: CHOLECALCIFEROL 2,000 UNIT CAP PO SCH (09:06)
[2017-03-26] MEDS: MULTIVIT/CA CARB/B CMPLX/FA TAB PO SCH (09:06)
[2017-03-26] MEDS: LEVOTHYROXINE 50 MCG TAB PO SCH (09:06)
[2017-03-26] MEDS: CLOPIDOGREL 75 MG TAB PO SCH (09:06)
[2017-03-26] MEDS: FENOFIBRATE 145 MG TAB PO SCH (09:06)
[2017-03-26] MEDS: DOCUSATE SODIUM 100 MG CAP PO PRN (09:09)
--- NOTE | 2017-03-26 10:06 | CONS ---
Date/Time of Note Date/Time of Note DATE: 03/26/17 TIME: 10:03 Assessment/Plan Assessment/Plan Additional Assessment/Plan Impression: - NSTEMI- recurrent, has occluded LM with un revascularized area of distal LCx and Proximal LAD. 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 pt s/p PCI with INGA x 1 to SVG-OM1 mid graft stenosis with good result. - CKD- iHD initiated via R IJ catheter for fluid mgmt - port to be placed for more stable access - Acute on chronic systolic heart failure- likely related to ESRD and fluid overload, fluid mgmt with iHD - s/p ICD normal fxn, h/o VT/VF - Myleofibrosis with anemia s/p transfusion, also now thrombocytopenia, will need to cont asa/plavix given PCI with INGA. ok to hold heparin products Recommendations: - cont asa 81mg daily - cont plavix 75 mg daily - cont metoprolol as tolerated - cont nitrate given area of LCx/LAD territory that can not be revascularized - pending HD access placement in am and discharge the following day - encouraged pt be more active and instructed nursing as well. Consultation Date/Type/Reason Admit Date/Time Mar 20, 2017 at 15:32 Initial Consult Date 03/23/17 Type of Consultation: cardiology Referring Provider: JULIANNE ESTRELLA MD 24 HR Interval Summary Free Text/Dictation Pt feels well without any new issues. No CP or SOB. Exam/Review of Systems Vital Signs Vitals Vital Signs Date Time Temp Pulse Resp B/P Pulse Ox O2 Delivery O2 Flow Rate FiO2 03/26/17 08:08 97.0 69 18 100/56 98 03/25/17 22:40 Nasal Cannula 2.0 03/24/17 17:28 21 Intake and Output 03/25/17 03/25/17 03/26/17 15:00 23:00 07:00 Intake Total 900 ml 300 ml Output Total 3400 ml 350 ml Balance -2500 ml -50 ml Exam Constitutional: alert, oriented Psych: no complaints Head: normocephalic Eyes: nl conjunctiva ENMT: nl external ears & nose Neck: non-tender Respiratory: other (decreased BS and rhonci) Cardiovascular: nl pulses, regular rate and rhythm, No edema Gastrointestinal: non-tender, soft Musculoskeletal: nl extremities to inspection 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: QUALITY ASSURANCE ADVISOR II-XII intact Results Result Diagram: 03/26/17 0552 03/26/17 0552 Results 24 hrs Laboratory Tests Test 03/25/17 12:23 03/25/17 17:42 03/25/17 21:06 03/26/17 05:52 Bedside Glucose 185 122 102 White Blood Count 4.8 Red Blood Count 3.13 L Hemoglobin 9.1 L Hematocrit 27.4 L Mean Corpuscular Volume 87.5 Mean Corpuscular Hemoglobin 29.1 Mean Corpuscular Hemoglobin Concent 33.2 Red Cell Distribution Width 15.9 H Platelet Count 83 #L Mean Platelet Volume 13.5 H Neutrophils % 77.6 H Lymphocytes % 11.0 L Monocytes % 9.4 Eosinophils % 1.0 Basophils % 0.2 Nucleated Red Blood Cells % 0.0 Neutrophils # 3.7 Lymphocytes # 0.5 L Monocytes # 0.5 Eosinophils # 0.1 Basophils # 0.0 Nucleated Red Blood Cells # 0.0 Sodium Level 138 Potassium Level 3.9 Chloride Level 96 L Carbon Dioxide Level 27 Anion Gap 19 H Blood Urea Nitrogen 40 #H Creatinine 2.97 H Glucose Level 75 Calcium Level 9.3 Test 03/26/17 07:56 Bedside Glucose 78 Medications Medications Current Medications Acetaminophen (Tylenol Tab) 650 mg Q6H PRN PO PAIN LEVEL 1-3 OR FEVER; Start at 17:00 Docusate Sodium (Colace) 100 mg Q12H PRN PO CONSTIPATION Last administered on 09:09; Admin Dose 100 MG; Start 03/20/17 at 17:00 Allopurinol (Zyloprim) 200 mg DAILY PO Last administered on 03/26/17 09:06; Admin Dose 200 MG; Start 03/21/17 at 09:00 Amlodipine Besylate (Norvasc) 5 mg DAILY PO Last administered on 03/24/17 09:36 ; Admin Dose 5 MG; Start 03/20/17 at 17:00 Clopidogrel Bisulfate (plaVIX) 75 mg DAILY PO Last administered on 03/26/17 09: 06; Admin Dose 75 MG; Start 03/21/17 at 09:00 Fenofibrate (Tricor) 145 mg DAILY PO Last administered on 03/26/17 09:06; Admin Dose 145 MG; Start 03/21/17 at 09:00 Levothyroxine Sodium (Synthroid) 50 mcg DAILY PO Last administered on 03/26/17 09:06; Admin Dose 50 MCG; Start 03/21/17 at 09:00 Metoprolol Succinate (Toprol Xl) 50 mg BID PO Last administered on 03/25/17 21: 09; Admin Dose 50 MG; Start 03/20/17 at 21:00 Cholecalciferol (Vitamin D) 2,000 unit DAILY PO Last administered on 03/26/17 09:06; Admin Dose 2,000 UNIT; Start 03/21/17 at 09:00 Pantoprazole (Protonix Tab) 40 mg DAILY@06 PO Last administered on 03/26/17 05: 37; Admin Dose 40 MG; Start 03/21/17 at 06:00 Miscellaneous Information 1 ea NOTE XX ; Start 03/20/17 at 17:30 Glucose (Glutose) 15 gm Q15M PRN PO DECREASED GLUCOSE; Start 03/20/17 at 17:30 Glucose (Glutose) 22.5 gm Q15M PRN PO DECREASED GLUCOSE; Start 03/20/17 at 17: 30 Dextrose (D50w Syringe) 25 ml Q15M PRN IV DECREASED GLUCOSE; Start 03/20/17 at 17:30 Dextrose (D50w Syringe) 50 ml Q15M PRN IV DECREASED GLUCOSE; Start 03/20/17 at 17:30 Glucagon (Glucagen) 1 mg Q15M PRN IM DECREASED GLUCOSE; Start 03/20/17 at 17:30 Glucose (Glutose) 15 gm Q15M PRN BUCCAL DECREASED GLUCOSE; Start 03/20/17 at 17 :30 Aspirin (Aspirin) 81 mg DAILY PO Last administered on 03/26/17 09:05; Admin Dose 81 MG; Start 03/21/17 at 13:30 Multivit/Ca Carb/ B Cmplx/FA/Prenat (Nadiya-Ozzie) 1 tab DAILY PO Last administered on 03/26/17 09:06; Admin Dose 1 TAB; Start 03/22/17 at 09:00 Epoetin Magdiel (Epogen (Esrd)) 10,000 units MoWeFr@17 SC Last administered on 03/25 17:00; Admin Dose 10,000 UNITS; Start 03/22/17 at 17:00 Oxycodone/ Acetaminophen (Percocet (5/ 325)) 1 tab Q4H PRN PO REPORTED NON- CARDIAC PAIN 4-7; Start 03/22/17 at 19:30 Al Hydrox/Mg Hydrox/Simethicone (Mag-Al Plus) 30 ml Q4H PRN PO GASTROINTESTINAL UPSET; Start 03/22/17 at 19:30 Ondansetron HCl (Zofran Inj) 4 mg Q4H PRN IV NAUSEA AND/OR VOMITING; Start at 19:30 Insulin Detemir (Levemir) 12 unit DAILY@20 SC Last administered on 03/25/17 21: 16; Admin Dose 12 UNIT; Start 03/23/17 at 20:00 Isosorbide Dinitrate (Isordil) 10 mg BID PO Last administered on 03/26/17 09:05 ; Admin Dose 10 MG; Start 03/24/17 at 21:00 DEENA JONES MD Mar 26, 2017 10:06
--- NOTE | 2017-03-26 10:34 | CONS ---
Date/Time of Note Date/Time of Note DATE: 03/26/17 TIME: 10:30 Assessment/Plan Assessment/Plan Problems: (1) Type 2 diabetes mellitus without complications Status: Chronic Comment: FBG lower today. Will decrease levemir from 12 to 10 units. Increase Novolog w/ breakfast from 6 to 7 units and decrease lunch and dinner doses from 6 to 5 units w/ each meal. Reeval tomorrow. Qualifiers: Diabetes mellitus parts counterman insulin use: with parts counterman use Qualified Code : E11.9 - Type 2 diabetes mellitus without complication, with long-term current use of insulin Consultation Date/Type/Reason Admit Date/Time Mar 20, 2017 at 15:32 Initial Consult Date 03/23/17 Type of Consultation: Endocrinology Reason for Consultation T2DM management Referring Provider: JULIANNE ESTRELLA MD 24 HR Interval Summary Constitutional: improved, no complaints Detailed Summary Respiratory: no complaints Cardiovascular: no complaints Gastrointestinal: no complaints Genitourinary: no complaints Musculoskeletal: no complaints Neurologic: no complaints Exam/Review of Systems Vital Signs Vitals VS - Last 72 Hours, by Label Date Time Temp Pulse Resp B/P Pulse Ox O2 Delivery O2 Flow Rate FiO2 03/26/17 08:15 Nasal Cannula 2.0 03/26/17 08:08 97.0 69 18 100/56 98 03/26/17 08:07 68 03/26/17 04:21 97.8 69 19 112/59 100 03/26/17 04:00 78 03/26/17 00:00 82 03/25/17 23:56 98.0 77 20 121/70 97 03/25/17 22:40 Nasal Cannula 2.0 03/25/17 20:18 97.5 80 20 111/65 100 03/25/17 20:00 79 03/25/17 16:25 84 03/25/17 16:19 78 24 03/25/17 16:15 88 03/25/17 15:48 89 03/25/17 15:38 97.8 78 19 116/64 96 03/25/17 15:31 88 03/25/17 15:12 87 03/25/17 14:50 85 03/25/17 14:23 84 03/25/17 13:50 80 03/25/17 13:25 75 22 03/25/17 13:25 82 03/25/17 12:34 75 03/25/17 11:09 98.4 76 18 112/59 92 03/25/17 08:14 77 03/25/17 07:16 98.0 76 18 129/63 98 03/25/17 04:03 70 03/25/17 03:57 97.6 75 18 103/62 97 03/25/17 00:16 75 03/25/17 00:00 97.2 83 18 116/56 99 03/24/17 20:02 75 03/24/17 20:00 Nasal Cannula 2.0 03/24/17 19:58 97.6 75 18 109/69 98 03/24/17 18:58 Nasal Cannula 2.0 03/24/17 17:28 96 21 03/24/17 16:20 82 03/24/17 15:05 98.1 84 19 107/57 98 03/24/17 12:49 77 03/24/17 11:13 98.1 75 19 105/58 95 03/24/17 08:49 73 03/24/17 07:23 98.3 69 19 115/75 95 03/24/17 04:02 72 03/24/17 04:00 98.2 76 20 105/58 96 Nasal Cannula 2.0 03/24/17 00:02 75 03/23/17 23:56 98.0 78 19 114/62 100 03/23/17 21:00 2.0 03/23/17 20:02 98.1 84 18 127/69 100 03/23/17 20:00 80 03/23/17 20:00 Nasal Cannula 2.0 03/23/17 19:58 80 03/23/17 18:03 100 2.0 28 03/23/17 18:00 85 21 124/86 95 03/23/17 17:51 77 24 03/23/17 17:45 81 03/23/17 17:23 86 03/23/17 17:05 77 03/23/17 17:00 83 19 144/73 96 03/23/17 16:46 76 03/23/17 16:44 78 03/23/17 16:14 79 03/23/17 16:00 97.4 77 21 117/70 97 Nasal Cannula 2.0 03/23/17 15:57 76 03/23/17 15:56 100 2.0 28 03/23/17 15:35 75 03/23/17 15:35 75 26 03/23/17 15:00 75 26 115/67 88 03/23/17 14:00 77 25 105/68 99 03/23/17 13:00 80 21 117/63 100 2.0 03/23/17 12:45 76 03/23/17 12:00 97.8 76 21 110/67 100 Nasal Cannula 2.0 03/23/17 12:00 100 2.0 28 03/23/17 11:00 78 24 106/73 100 2.0 Vital Signs Date Time Temp Pulse Resp B/P Pulse Ox O2 Delivery O2 Flow Rate FiO2 03/26/17 08:15 Nasal Cannula 2.0 03/26/17 08:08 97.0 69 18 100/56 98 03/24/17 17:28 21 Intake and Output 03/25/17 03/25/17 03/26/17 15:00 23:00 07:00 Intake Total 900 ml 300 ml Output Total 3400 ml 350 ml Balance -2500 ml -50 ml Exam Constitutional: alert, frail, oriented Psych: nl mood/affect, no complaints Respiratory: crackles/rales (R base) Cardiovascular: nl pulses, regular rate and rhythm, No edema, No murmurs/extra sounds, No rub Gastrointestinal: bowel sounds, nl liver, spleen, non-tender, soft, No mass, No rebound or guarding Musculoskeletal: nl extremities to inspection Extremities: normal pulses, No clubbing, No cyanosis, No edema 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: INTEGRATED LOGISTICS PROGRAMS DIRECTOR II-XII intact, nl mental status, nl speech, nl strength Additional Comments Bedside Glucose - 72 Hours Test 03/23/17 12:02 03/23/17 17:30 03/23/17 21:16 03/24/17 07:50 Bedside Glucose 147mg/dL (70-220) 142mg/dL (70-220) 135mg/dL (70-220) 100mg/dL (70-220) Test 03/24/17 11:43 03/24/17 17:14 03/24/17 20:39 03/25/17 07:27 Bedside Glucose 195mg/dL (70-220) 107mg/dL (70-220) 88mg/dL (70-220) 121mg/dL (70-220) Test 03/25/17 12:23 03/25/17 17:42 03/25/17 21:06 03/26/17 07:56 Bedside Glucose 185mg/dL (70-220) 122mg/dL (70-220) 102mg/dL (70-220) 78mg/dL (70-220) Results Result Diagram: 03/26/17 0552 03/26/17 0552 Results 24 hrs Laboratory Tests Test 03/25/17 12:23 03/25/17 17:42 03/25/17 21:06 03/26/17 05:52 Bedside Glucose 185 122 102 White Blood Count 4.8 Red Blood Count 3.13 L Hemoglobin 9.1 L Hematocrit 27.4 L Mean Corpuscular Volume 87.5 Mean Corpuscular Hemoglobin 29.1 Mean Corpuscular Hemoglobin Concent 33.2 Red Cell Distribution Width 15.9 H Platelet Count 83 #L Mean Platelet Volume 13.5 H Neutrophils % 77.6 H Lymphocytes % 11.0 L Monocytes % 9.4 Eosinophils % 1.0 Basophils % 0.2 Nucleated Red Blood Cells % 0.0 Neutrophils # 3.7 Lymphocytes # 0.5 L Monocytes # 0.5 Eosinophils # 0.1 Basophils # 0.0 Nucleated Red Blood Cells # 0.0 Sodium Level 138 Potassium Level 3.9 Chloride Level 96 L Carbon Dioxide Level 27 Anion Gap 19 H Blood Urea Nitrogen 40 #H Creatinine 2.97 H Glucose Level 75 Calcium Level 9.3 Test 03/26/17 07:56 Bedside Glucose 78 Medications Medications Current Medications Acetaminophen (Tylenol Tab) 650 mg Q6H PRN PO PAIN LEVEL 1-3 OR FEVER; Start at 17:00 Docusate Sodium (Colace) 100 mg Q12H PRN PO CONSTIPATION Last administered on 09:09; Admin Dose 100 MG; Start 03/20/17 at 17:00 Allopurinol (Zyloprim) 200 mg DAILY PO Last administered on 03/26/17 09:06; Admin Dose 200 MG; Start 03/21/17 at 09:00 Amlodipine Besylate (Norvasc) 5 mg DAILY PO Last administered on 03/24/17 09:36 ; Admin Dose 5 MG; Start 03/20/17 at 17:00 Clopidogrel Bisulfate (plaVIX) 75 mg DAILY PO Last administered on 03/26/17 09: 06; Admin Dose 75 MG; Start 03/21/17 at 09:00 Fenofibrate (Tricor) 145 mg DAILY PO Last administered on 03/26/17 09:06; Admin Dose 145 MG; Start 03/21/17 at 09:00 Levothyroxine Sodium (Synthroid) 50 mcg DAILY PO Last administered on 03/26/17 09:06; Admin Dose 50 MCG; Start 03/21/17 at 09:00 Metoprolol Succinate (Toprol Xl) 50 mg BID PO Last administered on 03/25/17 21: 09; Admin Dose 50 MG; Start 03/20/17 at 21:00 Cholecalciferol (Vitamin D) 2,000 unit DAILY PO Last administered on 03/26/17 09:06; Admin Dose 2,000 UNIT; Start 03/21/17 at 09:00 Pantoprazole (Protonix Tab) 40 mg DAILY@06 PO Last administered on 03/26/17 05: 37; Admin Dose 40 MG; Start 03/21/17 at 06:00 Miscellaneous Information 1 ea NOTE XX ; Start 03/20/17 at 17:30 Glucose (Glutose) 15 gm Q15M PRN PO DECREASED GLUCOSE; Start 03/20/17 at 17:30 Glucose (Glutose) 22.5 gm Q15M PRN PO DECREASED GLUCOSE; Start 03/20/17 at 17: 30 Dextrose (D50w Syringe) 25 ml Q15M PRN IV DECREASED GLUCOSE; Start 03/20/17 at 17:30 Dextrose (D50w Syringe) 50 ml Q15M PRN IV DECREASED GLUCOSE; Start 03/20/17 at 17:30 Glucagon (Glucagen) 1 mg Q15M PRN IM DECREASED GLUCOSE; Start 03/20/17 at 17:30 Glucose (Glutose) 15 gm Q15M PRN BUCCAL DECREASED GLUCOSE; Start 03/20/17 at 17 :30 Aspirin (Aspirin) 81 mg DAILY PO Last administered on 03/26/17 09:05; Admin Dose 81 MG; Start 03/21/17 at 13:30 Multivit/Ca Carb/ B Cmplx/FA/Prenat (Nadiya-Ozzie) 1 tab DAILY PO Last administered on 03/26/17 09:06; Admin Dose 1 TAB; Start 03/22/17 at 09:00 Epoetin Magdiel (Epogen (Esrd)) 10,000 units MoWeFr@17 SC Last administered on 03/25 17:00; Admin Dose 10,000 UNITS; Start 03/22/17 at 17:00 Oxycodone/ Acetaminophen (Percocet (5/ 325)) 1 tab Q4H PRN PO REPORTED NON- CARDIAC PAIN 4-7; Start 03/22/17 at 19:30 Al Hydrox/Mg Hydrox/Simethicone (Mag-Al Plus) 30 ml Q4H PRN PO GASTROINTESTINAL UPSET; Start 03/22/17 at 19:30 Ondansetron HCl (Zofran Inj) 4 mg Q4H PRN IV NAUSEA AND/OR VOMITING; Start at 19:30 Isosorbide Dinitrate (Isordil) 10 mg BID PO Last administered on 03/26/17 09:05 ; Admin Dose 10 MG; Start 03/24/17 at 21:00 Insulin Detemir (Levemir) 10 unit DAILY@20 SC ; Start 03/26/17 at 20:00 JACQUES KATZ MD Mar 26, 2017 10:34
--- NOTE | 2017-03-26 11:51 | PN ---
Date/Time of Note Date/Time of Note DATE: 03/26/17 TIME: 11:49 Assessment/Plan VTE Prophylaxis VTE Prophylaxis Intervention: other Lines/Catheters IV Catheter Type (from Nrs): Peripheral IV Urinary Cath still in place: No Assessment/Plan Assessment/Plan 1. CHF has resolved. 2. Acute TX, stable 3. Low platelets, improved 4. Needs vasc access, await discussion with vasc 5. Await case management eval re--dialysis facility and ecf 6. DM, control is acceptable Subjective 24 Hr Interval Summary Respiratory: No cough, No shortness of breath Cardiovascular: No chest pain Gastrointestinal: no complaints Genitourinary: no complaints Exam/Review of Systems Vital Signs Vitals Vital Signs Date Time Temp Pulse Resp B/P Pulse Ox O2 Delivery O2 Flow Rate FiO2 03/26/17 08:15 Nasal Cannula 2.0 03/26/17 08:08 97.0 69 18 100/56 98 03/24/17 17:28 21 Intake and Output 03/25/17 03/25/17 03/26/17 15:00 23:00 07:00 Intake Total 900 ml 300 ml Output Total 3400 ml 350 ml Balance -2500 ml -50 ml Exam Neck: No jvd Respiratory: diminished breath sounds (and few rales at bases) Cardiovascular: regular rate and rhythm Gastrointestinal: soft Extremities: No edema Results Result Diagram: 03/26/17 0552 03/26/17 0552 Results 24 hrs Laboratory Tests Test 03/25/17 12:23 03/25/17 17:42 03/25/17 21:06 03/26/17 05:52 Bedside Glucose 185 122 102 White Blood Count 4.8 Red Blood Count 3.13 L Hemoglobin 9.1 L Hematocrit 27.4 L Mean Corpuscular Volume 87.5 Mean Corpuscular Hemoglobin 29.1 Mean Corpuscular Hemoglobin Concent 33.2 Red Cell Distribution Width 15.9 H Platelet Count 83 #L Mean Platelet Volume 13.5 H Neutrophils % 77.6 H Lymphocytes % 11.0 L Monocytes % 9.4 Eosinophils % 1.0 Basophils % 0.2 Nucleated Red Blood Cells % 0.0 Neutrophils # 3.7 Lymphocytes # 0.5 L Monocytes # 0.5 Eosinophils # 0.1 Basophils # 0.0 Nucleated Red Blood Cells # 0.0 Sodium Level 138 Potassium Level 3.9 Chloride Level 96 L Carbon Dioxide Level 27 Anion Gap 19 H Blood Urea Nitrogen 40 #H Creatinine 2.97 H Glucose Level 75 Calcium Level 9.3 Test 03/26/17 07:56 Bedside Glucose 78 Medications Medications Current Medications Acetaminophen (Tylenol Tab) 650 mg Q6H PRN PO PAIN LEVEL 1-3 OR FEVER; Start at 17:00 Docusate Sodium (Colace) 100 mg Q12H PRN PO CONSTIPATION Last administered on 09:09; Admin Dose 100 MG; Start 03/20/17 at 17:00 Allopurinol (Zyloprim) 200 mg DAILY PO Last administered on 03/26/17 09:06; Admin Dose 200 MG; Start 03/21/17 at 09:00 Amlodipine Besylate (Norvasc) 5 mg DAILY PO Last administered on 03/24/17 09:36 ; Admin Dose 5 MG; Start 03/20/17 at 17:00 Clopidogrel Bisulfate (plaVIX) 75 mg DAILY PO Last administered on 03/26/17 09: 06; Admin Dose 75 MG; Start 03/21/17 at 09:00 Fenofibrate (Tricor) 145 mg DAILY PO Last administered on 03/26/17 09:06; Admin Dose 145 MG; Start 03/21/17 at 09:00 Levothyroxine Sodium (Synthroid) 50 mcg DAILY PO Last administered on 03/26/17 09:06; Admin Dose 50 MCG; Start 03/21/17 at 09:00 Metoprolol Succinate (Toprol Xl) 50 mg BID PO Last administered on 03/25/17 21: 09; Admin Dose 50 MG; Start 03/20/17 at 21:00 Cholecalciferol (Vitamin D) 2,000 unit DAILY PO Last administered on 03/26/17 09:06; Admin Dose 2,000 UNIT; Start 03/21/17 at 09:00 Pantoprazole (Protonix Tab) 40 mg DAILY@06 PO Last administered on 03/26/17 05: 37; Admin Dose 40 MG; Start 03/21/17 at 06:00 Miscellaneous Information 1 ea NOTE XX ; Start 03/20/17 at 17:30 Glucose (Glutose) 15 gm Q15M PRN PO DECREASED GLUCOSE; Start 03/20/17 at 17:30 Glucose (Glutose) 22.5 gm Q15M PRN PO DECREASED GLUCOSE; Start 03/20/17 at 17: 30 Dextrose (D50w Syringe) 25 ml Q15M PRN IV DECREASED GLUCOSE; Start 03/20/17 at 17:30 Dextrose (D50w Syringe) 50 ml Q15M PRN IV DECREASED GLUCOSE; Start 03/20/17 at 17:30 Glucagon (Glucagen) 1 mg Q15M PRN IM DECREASED GLUCOSE; Start 03/20/17 at 17:30 Glucose (Glutose) 15 gm Q15M PRN BUCCAL DECREASED GLUCOSE; Start 03/20/17 at 17 :30 Aspirin (Aspirin) 81 mg DAILY PO Last administered on 03/26/17 09:05; Admin Dose 81 MG; Start 03/21/17 at 13:30 Multivit/Ca Carb/ B Cmplx/FA/Prenat (Nadiya-Ozzie) 1 tab DAILY PO Last administered on 03/26/17 09:06; Admin Dose 1 TAB; Start 03/22/17 at 09:00 Epoetin Magdiel (Epogen (Esrd)) 10,000 units MoWeFr@17 SC Last administered on 03/25 17:00; Admin Dose 10,000 UNITS; Start 03/22/17 at 17:00 Oxycodone/ Acetaminophen (Percocet (5/ 325)) 1 tab Q4H PRN PO REPORTED NON- CARDIAC PAIN 4-7; Start 03/22/17 at 19:30 Al Hydrox/Mg Hydrox/Simethicone (Mag-Al Plus) 30 ml Q4H PRN PO GASTROINTESTINAL UPSET; Start 03/22/17 at 19:30 Ondansetron HCl (Zofran Inj) 4 mg Q4H PRN IV NAUSEA AND/OR VOMITING; Start at 19:30 Isosorbide Dinitrate (Isordil) 10 mg BID PO Last administered on 03/26/17 09:05 ; Admin Dose 10 MG; Start 03/24/17 at 21:00 Insulin Detemir (Levemir) 10 unit DAILY@20 SC ; Start 03/26/17 at 20:00 JULIANNE ESTRELLA MD Mar 26, 2017 11:51
--- NOTE | 2017-03-26 11:57 | RADRPT ---
PROCEDURE: XR Chest. CLINICAL INDICATION: CHF TECHNIQUE: Single frontal chest x-ray. COMPARISON: 03/21/2017 FINDINGS: Median sternotomy wires are noted. There is a left-sided pacer with pacer leads in the region of th e right atrium and right ventricle. A right internal jugular central venous catheter is visualized with the tip in the low SVC. Low lung volumes are noted with slight improvement of the pulmonary edema. Bibasilar atelectasis is again noted with slight decrease in the right pleural effusion, very small. There is no pneumothor ax. The heart is enlarged. Mediastinal contours are unchanged with atherosclerotic calcifications within the aortic arch. Bones are unchanged. There are no acute fractures. RPTAT: QQ IMPRESSION: 1. Slight improvement of the pulmonary edema. 2. Slight decrease in size of the right pleural effusion, now very small. 3. Bibasilar atelectasis. 4. Cardiomegaly with atherosclerotic vascular disease. .Anika Quesada MD, MD Date Time Electronically viewed and signed by .Anika Quesada MD, MD on 03/26/2017 11:56 .T/
--- NOTE | 2017-03-26 16:44 | PN ---
Date/Time of Note Date/Time of Note DATE: 03/26/17 TIME: 16:38 Assessment/Plan VTE Prophylaxis VTE Prophylaxis Intervention: SCD's Lines/Catheters [facility] Peripheral IV Urinary Cath still in place: No Assessment/Plan Chief Complaint/Hosp Course Pt has hx of myelofibrosis and is taking Jakafi. Admitted with c/o difficulty sleeping and orthopnea/PND. Pt has undergone coronary angiography with angioplasty and stent placement. Symptoms improved. Plt ct lower than usual on admit. . Problems: (1) Thrombocytopenia Status: Acute (2) Type 2 diabetes mellitus without complications Status: Chronic Qualifiers: Diabetes mellitus correction insulin use: with predatory animal exterminator use Qualified Code : E11.9 - Type 2 diabetes mellitus without complication, with long-term current use of insulin (3) Myelofibrosis Status: Chronic (4) Arteriosclerosis of coronary artery in patient with history of myocardial infarction Status: Chronic Assessment/Plan Pt is top have placement of tunneled dialysis catheter in AM. Platelet count is now 83,000. Will still give platelet transfusion prior to the catheter placement. Will also check PT/PTT in AM./ Jakafi has been D/C'ed. Subjective 24 Hr Interval Summary Free Text/Dictation No new complaints. No chest pain or SOB. Exam/Review of Systems Vital Signs Vitals Vital Signs Date Time Temp Pulse Resp B/P Pulse Ox O2 Delivery O2 Flow Rate FiO2 03/26/17 16:19 73 03/26/17 16:18 97.5 20 113/63 100 03/26/17 08:15 Nasal Cannula 2.0 03/24/17 17:28 21 Intake and Output 03/25/17 03/25/17 03/26/17 14:59 22:59 06:59 Intake Total 900 ml 300 ml Output Total 3400 ml 350 ml Balance -2500 ml -50 ml Exam Constitutional: alert, oriented Head: atraumatic, normocephalic Eyes: EOMI, nl conjunctiva ENMT: mucosa pink and moist Neck: non-tender, other (Rt IJ catheter), supple Respiratory: clear to auscultation, normal air movement, other (sternotomy scar ) Cardiovascular: nl pulses, regular rate and rhythm Gastrointestinal: nl liver, spleen, non-tender, soft Musculoskeletal: nl extremities to inspection, nl gait and stance Extremities: normal pulses 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: TAIL TRIMMER II-XII intact, nl mental status, nl speech Skin: nl turgor, rash or lesions Lymph: nl lymph nodes Results Result Diagram: 03/26/17 0552 03/26/17 0552 Results 24 hrs Laboratory Tests Test 03/25/17 17:42 03/25/17 21:06 03/26/17 05:52 03/26/17 07:56 Bedside Glucose 122 102 78 White Blood Count 4.8 Red Blood Count 3.13 L Hemoglobin 9.1 L Hematocrit 27.4 L Mean Corpuscular Volume 87.5 Mean Corpuscular Hemoglobin 29.1 Mean Corpuscular Hemoglobin Concent 33.2 Red Cell Distribution Width 15.9 H Platelet Count 83 #L Mean Platelet Volume 13.5 H Neutrophils % 77.6 H Lymphocytes % 11.0 L Monocytes % 9.4 Eosinophils % 1.0 Basophils % 0.2 Nucleated Red Blood Cells % 0.0 Neutrophils # 3.7 Lymphocytes # 0.5 L Monocytes # 0.5 Eosinophils # 0.1 Basophils # 0.0 Nucleated Red Blood Cells # 0.0 Sodium Level 138 Potassium Level 3.9 Chloride Level 96 L Carbon Dioxide Level 27 Anion Gap 19 H Blood Urea Nitrogen 40 #H Creatinine 2.97 H Glucose Level 75 Calcium Level 9.3 Test 03/26/17 12:02 Bedside Glucose 184 Medications Medications Current Medications Acetaminophen (Tylenol Tab) 650 mg Q6H PRN PO PAIN LEVEL 1-3 OR FEVER; Start at 17:00 Docusate Sodium (Colace) 100 mg Q12H PRN PO CONSTIPATION Last administered on 09:09; Admin Dose 100 MG; Start 03/20/17 at 17:00 Allopurinol (Zyloprim) 200 mg DAILY PO Last administered on 03/26/17 09:06; Admin Dose 200 MG; Start 03/21/17 at 09:00 Amlodipine Besylate (Norvasc) 5 mg DAILY PO Last administered on 03/24/17 09:36 ; Admin Dose 5 MG; Start 03/20/17 at 17:00 Clopidogrel Bisulfate (plaVIX) 75 mg DAILY PO Last administered on 03/26/17 09: 06; Admin Dose 75 MG; Start 03/21/17 at 09:00 Fenofibrate (Tricor) 145 mg DAILY PO Last administered on 03/26/17 09:06; Admin Dose 145 MG; Start 03/21/17 at 09:00 Levothyroxine Sodium (Synthroid) 50 mcg DAILY PO Last administered on 03/26/17 09:06; Admin Dose 50 MCG; Start 03/21/17 at 09:00 Metoprolol Succinate (Toprol Xl) 50 mg BID PO Last administered on 03/25/17 21: 09; Admin Dose 50 MG; Start 03/20/17 at 21:00 Cholecalciferol (Vitamin D) 2,000 unit DAILY PO Last administered on 03/26/17 09:06; Admin Dose 2,000 UNIT; Start 03/21/17 at 09:00 Pantoprazole (Protonix Tab) 40 mg DAILY@06 PO Last administered on 03/26/17 05: 37; Admin Dose 40 MG; Start 03/21/17 at 06:00 Miscellaneous Information 1 ea NOTE XX ; Start 03/20/17 at 17:30 Glucose (Glutose) 15 gm Q15M PRN PO DECREASED GLUCOSE; Start 03/20/17 at 17:30 Glucose (Glutose) 22.5 gm Q15M PRN PO DECREASED GLUCOSE; Start 03/20/17 at 17: 30 Dextrose (D50w Syringe) 25 ml Q15M PRN IV DECREASED GLUCOSE; Start 03/20/17 at 17:30 Dextrose (D50w Syringe) 50 ml Q15M PRN IV DECREASED GLUCOSE; Start 03/20/17 at 17:30 Glucagon (Glucagen) 1 mg Q15M PRN IM DECREASED GLUCOSE; Start 03/20/17 at 17:30 Glucose (Glutose) 15 gm Q15M PRN BUCCAL DECREASED GLUCOSE; Start 03/20/17 at 17 :30 Aspirin (Aspirin) 81 mg DAILY PO Last administered on 03/26/17 09:05; Admin Dose 81 MG; Start 03/21/17 at 13:30 Multivit/Ca Carb/ B Cmplx/FA/Prenat (Nadiya-Ozzie) 1 tab DAILY PO Last administered on 03/26/17 09:06; Admin Dose 1 TAB; Start 03/22/17 at 09:00 Epoetin Magdiel (Epogen (Esrd)) 10,000 units MoWeFr@17 SC Last administered on 03/25 17:00; Admin Dose 10,000 UNITS; Start 03/22/17 at 17:00 Oxycodone/ Acetaminophen (Percocet (5/ 325)) 1 tab Q4H PRN PO REPORTED NON- CARDIAC PAIN 4-7; Start 03/22/17 at 19:30 Al Hydrox/Mg Hydrox/Simethicone (Mag-Al Plus) 30 ml Q4H PRN PO GASTROINTESTINAL UPSET; Start 03/22/17 at 19:30 Ondansetron HCl (Zofran Inj) 4 mg Q4H PRN IV NAUSEA AND/OR VOMITING; Start at 19:30 Isosorbide Dinitrate (Isordil) 10 mg BID PO Last administered on 03/26/17t 09:05 ; Admin Dose 10 MG; Start 03/24/17 at 21:00 Insulin Detemir (Levemir) 10 unit DAILY@20 SC ; Start 03/26/17 at 20:00 DARNELL AMARAL MD Mar 26, 2017 16:43
[2017-03-26] MEDS: INSULIN DETEMIR [LEVEMIR] 3ML CART SC SCH (21:34)
[2017-03-27] VITALS (19 sets, daily range): BP systolic 97–128; BP diastolic 53–68; PULSE 69–86; RESP 17–18
[2017-03-27] MEDS: PANTOPRAZOLE (EC) 40 MG TAB PO SCH (05:42)
[2017-03-27 06:07] LABS: ADD SCAN DIFF NO
[2017-03-27 06:15] LABS: ABNORMAL IP MESSAGE 1; BASOPHILS % 0.2 % (0.0-2.0); EOSINOPHILS # 0.1 10^3/ul (0.0-0.5); EOSINOPHILS % 1.2 % (0.0-7.0); HEMATOCRIT 29.1 % (42.0-52.0); HEMOGLOBIN 9.2 g/dl (14.0-18.0); LYMPHOCYTES # 0.4 10^3/ul (0.8-2.9); LYMPHOCYTES % 6.9 % (15.0-51.0); MEAN CORPUSCULAR HEMOGLOBIN 28.2 pg (29.0-33.0); MEAN CORPUSCULAR HGB CONC 31.6 g/dl (32.0-37.0); MEAN CORPUSCULAR VOLUME 89.3 fl (82.0-101.0); MEAN PLATELET VOLUME 12.4 fl (7.4-10.4); MONOCYTE # 0.5 10^3/ul (0.3-0.9); MONOCYTES % 8.6 % (0.0-11.0); NEUTROPHIL # 4.8 10^3/ul (1.6-7.5); NEUTROPHILS % 81.7 % (39.0-77.0); RED BLOOD COUNT 3.26 10^6/ul (4.70-6.10); RED CELL DISTRIBUTION WIDTH 16.1 % (11.5-14.5); WHITE BLOOD COUNT 5.8 10^3/ul (4.8-10.8)
[2017-03-27 06:30] LABS: PLATELET COUNT 78 10^3/UL (140-415)
[2017-03-27 06:40] LABS: INR 1.14; PROTIME 14.6 Sec (12.2-14.2); PT RATIO 1.1
[2017-03-27 06:41] LABS: PARTIAL THROMBOPLASTIN TIME 31.9 Sec (25.0-35.0)
[2017-03-27 06:50] LABS: CALCIUM 9.6 mg/dl (8.4-10.2); CREATININE 3.66 mg/dl (0.61-1.24); PHOSPHORUS 3.2 mg/dl (2.5-4.9); POTASSIUM 4.5 mmol/L (3.5-5.1)
[2017-03-27] MEDS: INSULIN ASPART [NOVOLOG] 3 ML PEN SC SCH ×8 (07:55→20:42)
[2017-03-27] MEDS: CHOLECALCIFEROL 2,000 UNIT CAP PO SCH (08:04)
[2017-03-27] MEDS: LEVOTHYROXINE 50 MCG TAB PO SCH (08:05)
[2017-03-27] MEDS: ALLOPURINOL 100 MG TAB PO SCH (08:05)
[2017-03-27] MEDS: CLOPIDOGREL 75 MG TAB PO SCH (08:05)
[2017-03-27] MEDS: MULTIVIT/CA CARB/B CMPLX/FA TAB PO SCH (08:05)
[2017-03-27] MEDS: FENOFIBRATE 145 MG TAB PO SCH (08:05)
[2017-03-27] MEDS: METOPROLOL (XL) 50 MG TAB PO SCH ×2 (08:21→20:41)
[2017-03-27] MEDS: AMLODIPINE 5 MG TAB PO SCH (08:21)
[2017-03-27] MEDS: ISOSORBIDE DINITRATE 10 MG TAB PO SCH ×2 (08:21→20:41)
--- NOTE | 2017-03-27 08:47 | PN ---
Date/Time of Note Date/Time of Note DATE: 03/27/17 TIME: 08:45 Assessment/Plan VTE Prophylaxis VTE Prophylaxis Intervention: other Lines/Catheters IV Catheter Type (from Nrs): Peripheral IV Urinary Cath still in place: No Assessment/Plan Assessment/Plan 1. CKD, tolerating hd well 2. Perm access to be placed today 3. Await case management eval---acute rehab transfer 4. Anemia stable 5. ASHD, acute VT, stable Subjective 24 Hr Interval Summary Cardiovascular: No chest pain, No lightheadedness, No orthopenea Gastrointestinal: no complaints Genitourinary: no complaints Exam/Review of Systems Vital Signs Vitals Vital Signs Date Time Temp Pulse Resp B/P Pulse Ox O2 Delivery O2 Flow Rate FiO2 03/27/17 08:06 74 03/27/17 07:57 97.7 18 104/57 100 03/26/17 22:51 Nasal Cannula 03/26/17 16:35 21 03/26/17 08:15 2.0 Intake and Output 03/26/17 03/26/17 03/27/17 15:00 23:00 07:00 Intake Total 200 ml 355 ml Output Total 120 ml 320 ml Balance 80 ml 35 ml Exam Neck: No jvd Respiratory: diminished breath sounds (and few rales bases) Cardiovascular: regular rate and rhythm, No S3, No S4 Gastrointestinal: soft Extremities: No edema Results Result Diagram: 03/27/17 0520 03/27/17 0520 Results 24 hrs Laboratory Tests Test 03/26/17 12:02 03/26/17 16:55 03/26/17 21:01 03/27/17 05:00 Bedside Glucose 184 71 133 Prothrombin Time 14.6 H Prothrombin Time Ratio 1.1 INR International Normalized Ratio 1.14 Activated Partial Thromboplast Time 31.9 Test 03/27/17 05:20 03/27/17 08:01 White Blood Count 5.8 # Red Blood Count 3.26 L Hemoglobin 9.2 L Hematocrit 29.1 L Mean Corpuscular Volume 89.3 Mean Corpuscular Hemoglobin 28.2 L Mean Corpuscular Hemoglobin Concent 31.6 L Red Cell Distribution Width 16.1 H Platelet Count 78 L Mean Platelet Volume 12.4 H Neutrophils % 81.7 H Lymphocytes % 6.9 L Monocytes % 8.6 Eosinophils % 1.2 Basophils % 0.2 Nucleated Red Blood Cells % 0.0 Neutrophils # 4.8 Lymphocytes # 0.4 L Monocytes # 0.5 Eosinophils # 0.1 Basophils # 0.0 Nucleated Red Blood Cells # 0.0 Sodium Level 138 Potassium Level 4.5 Chloride Level 94 L Carbon Dioxide Level 28 Anion Gap 21 H Blood Urea Nitrogen 60 H Creatinine 3.66 H Glucose Level 116 # Calcium Level 9.6 Phosphorus Level 3.2 Bedside Glucose 145 Medications Medications Current Medications Acetaminophen (Tylenol Tab) 650 mg Q6H PRN PO PAIN LEVEL 1-3 OR FEVER; Start at 17:00 Docusate Sodium (Colace) 100 mg Q12H PRN PO CONSTIPATION Last administered on 09:09; Admin Dose 100 MG; Start 03/20/17 at 17:00 Allopurinol (Zyloprim) 200 mg DAILY PO Last administered on 03/27/17 08:05; Admin Dose 200 MG; Start 03/21/17 at 09:00 Amlodipine Besylate (Norvasc) 5 mg DAILY PO Last administered on 03/24/17 09:36 ; Admin Dose 5 MG; Start 03/20/17 at 17:00 Clopidogrel Bisulfate (plaVIX) 75 mg DAILY PO Last administered on 03/27/17 08: 05; Admin Dose 75 MG; Start 03/21/17 at 09:00 Fenofibrate (Tricor) 145 mg DAILY PO Last administered on 03/27/17 08:05; Admin Dose 145 MG; Start 03/21/17 at 09:00 Levothyroxine Sodium (Synthroid) 50 mcg DAILY PO Last administered on 03/27/17 08:05; Admin Dose 50 MCG; Start 03/21/17 at 09:00 Metoprolol Succinate (Toprol Xl) 50 mg BID PO Last administered on 03/26/17 21: 14; Admin Dose 50 MG; Start 03/20/17 at 21:00 Cholecalciferol (Vitamin D) 2,000 unit DAILY PO Last administered on 03/27/17 08:04; Admin Dose 2,000 UNIT; Start 03/21/17 at 09:00 Pantoprazole (Protonix Tab) 40 mg DAILY@06 PO Last administered on 03/27/17 05: 42; Admin Dose 40 MG; Start 03/21/17 at 06:00 Miscellaneous Information 1 ea NOTE XX ; Start 03/20/17 at 17:30 Glucose (Glutose) 15 gm Q15M PRN PO DECREASED GLUCOSE; Start 03/20/17 at 17:30 Glucose (Glutose) 22.5 gm Q15M PRN PO DECREASED GLUCOSE; Start 03/20/17 at 17: 30 Dextrose (D50w Syringe) 25 ml Q15M PRN IV DECREASED GLUCOSE; Start 03/20/17 at 17:30 Dextrose (D50w Syringe) 50 ml Q15M PRN IV DECREASED GLUCOSE; Start 03/20/17 at 17:30 Glucagon (Glucagen) 1 mg Q15M PRN IM DECREASED GLUCOSE; Start 03/20/17 at 17:30 Glucose (Glutose) 15 gm Q15M PRN BUCCAL DECREASED GLUCOSE; Start 03/20/17 at 17 :30 Aspirin (Aspirin) 81 mg DAILY PO Last administered on 03/26/17 09:05; Admin Dose 81 MG; Start 03/21/17 at 13:30 Multivit/Ca Carb/ B Cmplx/FA/Prenat (Nadiya-Ozzie) 1 tab DAILY PO Last administered on 03/27/17 08:05; Admin Dose 1 TAB; Start 03/22/17 at 09:00 Epoetin Magdiel (Epogen (Esrd)) 10,000 units MoWeFr@17 SC Last administered on 03/25 17:00; Admin Dose 10,000 UNITS; Start 03/22/17 at 17:00 Oxycodone/ Acetaminophen (Percocet (5/ 325)) 1 tab Q4H PRN PO REPORTED NON- CARDIAC PAIN 4-7; Start 03/22/17 at 19:30 Al Hydrox/Mg Hydrox/Simethicone (Mag-Al Plus) 30 ml Q4H PRN PO GASTROINTESTINAL UPSET; Start 03/22/17 at 19:30 Ondansetron HCl (Zofran Inj) 4 mg Q4H PRN IV NAUSEA AND/OR VOMITING; Start at 19:30 Isosorbide Dinitrate (Isordil) 10 mg BID PO Last administered on 03/26/17 21:14 ; Admin Dose 10 MG; Start 03/24/17 at 21:00 Insulin Detemir (Levemir) 10 unit DAILY@20 SC Last administered on 7/4/17at 21: 34; Admin Dose 10 UNIT; Start 03/26/17 at 20:00 JULIANNE ESTRELLA MD Mar 27, 2017 08:47
[2017-03-27] MEDS: ASPIRIN 81 MG TAB PO SCH (09:00)
--- NOTE | 2017-03-27 09:01 | PN ---
Date/Time of Note Date/Time of Note DATE: 03/27/17 TIME: 08:45 Assessment/Plan VTE Prophylaxis VTE Prophylaxis Intervention: SCD's Lines/Catheters IV C[facility]ter Type [facility]from [facility] Rt IJ dialysis cath Urinary Cath still in place: No Assessment/Plan Chief Complaint/Hosp Course Pt has hx of myelofibrosis and is taking Jakafi. Admitted with c/o difficulty sleeping and orthopnea/PND. Pt has undergone coronary angiography with angioplasty and stent placement. Symptoms improved. Plt ct lower than usual on admit. . Problems: (1) Acute on chronic renal failure (2) Type 2 diabetes mellitus without complications Status: Chronic Qualifiers: Diabetes mellitus rib chopper insulin use: with correction use Qualified Code : E11.9 - Type 2 diabetes mellitus without complication, with long-term current use of insulin (3) Myelofibrosis Status: Chronic (4) Thrombocytopenia Status: Acute (5) Arteriosclerosis of coronary artery in patient with history of myocardial infarction Status: Chronic Assessment/Plan Pt is now undergoing dialysis. Platelet count is stable. Will receive plt transfusion prior to insertion of tunneled dialysis cath. Will continue holding Jakafi and anticoag. Subjective 24 Hr Interval Summary Free Text/Dictation Pt is presently undergoing hemodialysis. Has no new complaints. No chest pain and no SOB. NO orthopnea or PND. Exam/Review of Systems Vital Signs Vitals Vital Signs Date Time Temp Pulse Resp B/P Pulse Ox O2 Delivery O2 Flow Rate FiO2 03/27/17 08:06 74 03/27/17 07:57 97.7 18 104/57 100 03/26/17 22:51 Nasal Cannula 03/26/17 16:35 21 03/26/17 08:15 2.0 Intake and Output 03/26/17 03/26/17 03/27/17 14:59 22:59 06:59 Intake Total 200 ml 355 ml Output Total 120 ml 320 ml Balance 80 ml 35 ml Exam Constitutional: alert, oriented, well developed Head: atraumatic, normocephalic Eyes: EOMI, PERRL, nl conjunctiva, nl sclera ENMT: mucosa pink and moist Neck: non-tender, other (Rt IJ dialysis catheter--now undergoing dialysis), supple Respiratory: clear to auscultation, normal air movement Cardiovascular: nl pulses, regular rate and rhythm Gastrointestinal: nl liver, spleen, non-tender, soft Musculoskeletal: nl extremities to inspection Extremities: normal pulses 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: DIRECTOR CLOUD TRANSFORMATION II-XII intact, nl mental status, nl speech, nl strength Skin: nl turgor, other ( on arms) Lymph: nl lymph nodes Results Result Diagram: 03/27/1751903/27/17 0520 Results 24 hrs Laboratory Tests Test 03/26/17 12:02 03/26/17 16:55 03/26/17 21:01 03/27/17 05:00 Bedside Glucose 184 71 133 Prothrombin Time 14.6 H Prothrombin Time Ratio 1.1 INR International Normalized Ratio 1.14 Activated Partial Thromboplast Time 31.9 Test 03/27/17 05:20 03/27/17 08:01 White Blood Count 5.8 # Red Blood Count 3.26 L Hemoglobin 9.2 L Hematocrit 29.1 L Mean Corpuscular Volume 89.3 Mean Corpuscular Hemoglobin 28.2 L Mean Corpuscular Hemoglobin Concent 31.6 L Red Cell Distribution Width 16.1 H Platelet Count 78 L Mean Platelet Volume 12.4 H Neutrophils % 81.7 H Lymphocytes % 6.9 L Monocytes % 8.6 Eosinophils % 1.2 Basophils % 0.2 Nucleated Red Blood Cells % 0.0 Neutrophils # 4.8 Lymphocytes # 0.4 L Monocytes # 0.5 Eosinophils # 0.1 Basophils # 0.0 Nucleated Red Blood Cells # 0.0 Sodium Level 138 Potassium Level 4.5 Chloride Level 94 L Carbon Dioxide Level 28 Anion Gap 21 H Blood Urea Nitrogen 60 H Creatinine 3.66 H Glucose Level 116 # Calcium Level 9.6 Phosphorus Level 3.2 Bedside Glucose 145 Medications Medications Current Medications Acetaminophen (Tylenol Tab) 650 mg Q6H PRN PO PAIN LEVEL 1-3 OR FEVER; Start at 17:00 Docusate Sodium (Colace) 100 mg Q12H PRN PO CONSTIPATION Last administered on 09:09; Admin Dose 100 MG; Start 03/20/17 at 17:00 Allopurinol (Zyloprim) 200 mg DAILY PO Last administered on 03/27/17 08:05; Admin Dose 200 MG; Start 03/21/17 at 09:00 Amlodipine Besylate (Norvasc) 5 mg DAILY PO Last administered on 03/24/17 09:36 ; Admin Dose 5 MG; Start 03/20/17 at 17:00 Clopidogrel Bisulfate (plaVIX) 75 mg DAILY PO Last administered on 03/27/17 08: 05; Admin Dose 75 MG; Start 03/21/17 at 09:00 Fenofibrate (Tricor) 145 mg DAILY PO Last administered on 03/27/17 08:05; Admin Dose 145 MG; Start 03/21/17 at 09:00 Levothyroxine Sodium (Synthroid) 50 mcg DAILY PO Last administered on 03/27/17 08:05; Admin Dose 50 MCG; Start 03/21/17 at 09:00 Metoprolol Succinate (Toprol Xl) 50 mg BID PO Last administered on 03/26/17 21: 14; Admin Dose 50 MG; Start 03/20/17 at 21:00 Cholecalciferol (Vitamin D) 2,000 unit DAILY PO Last administered on 03/27/17 08:04; Admin Dose 2,000 UNIT; Start 03/21/17 at 09:00 Pantoprazole (Protonix Tab) 40 mg DAILY@06 PO Last administered on 03/27/17 05: 42; Admin Dose 40 MG; Start 03/21/17 at 06:00 Miscellaneous Information 1 ea NOTE XX ; Start 03/20/17 at 17:30 Glucose (Glutose) 15 gm Q15M PRN PO DECREASED GLUCOSE; Start 03/20/17 at 17:30 Glucose (Glutose) 22.5 gm Q15M PRN PO DECREASED GLUCOSE; Start 03/20/17 at 17: 30 Dextrose (D50w Syringe) 25 ml Q15M PRN IV DECREASED GLUCOSE; Start 03/20/17 at 17:30 Dextrose (D50w Syringe) 50 ml Q15M PRN IV DECREASED GLUCOSE; Start 03/20/17 at 17:30 Glucagon (Glucagen) 1 mg Q15M PRN IM DECREASED GLUCOSE; Start 03/20/17 at 17:30 Glucose (Glutose) 15 gm Q15M PRN BUCCAL DECREASED GLUCOSE; Start 03/20/17 at 17 :30 Aspirin (Aspirin) 81 mg DAILY PO Last administered on 03/26/17 09:05; Admin Dose 81 MG; Start 03/21/17 at 13:30 Multivit/Ca Carb/ B Cmplx/FA/Prenat (Nadiya-Ozzie) 1 tab DAILY PO Last administered on 03/27/17 08:05; Admin Dose 1 TAB; Start 03/22/17 at 09:00 Epoetin Magdiel (Epogen (Esrd)) 10,000 units MoWeFr@17 SC Last administered on 03/25 17:00; Admin Dose 10,000 UNITS; Start 03/22/17 at 17:00 Oxycodone/ Acetaminophen (Percocet (5/ 325)) 1 tab Q4H PRN PO REPORTED NON- CARDIAC PAIN 4-7; Start 03/22/17 at 19:30 Al Hydrox/Mg Hydrox/Simethicone (Mag-Al Plus) 30 ml Q4H PRN PO GASTROINTESTINAL UPSET; Start 03/22/17 at 19:30 Ondansetron HCl (Zofran Inj) 4 mg Q4H PRN IV NAUSEA AND/OR VOMITING; Start at 19:30 Isosorbide Dinitrate (Isordil) 10 mg BID PO Last administered on 03/26/17 21:14 ; Admin Dose 10 MG; Start 03/24/17 at 21:00 Insulin Detemir (Levemir) 10 unit DAILY@20 SC Last administered on 03/26/17 21: 34; Admin Dose 10 UNIT; Start 03/26/17 at 20:00 DARNELL AMARAL MD Mar 27, 2017 08:56
[2017-03-27] MEDS ORDERED: LIDOCAINE 1% (MDV) 20 ML INJ ONE (12:11)
[2017-03-27] MEDS ORDERED: SOD CHLORIDE 0.9% 500 ML ONE (12:12)
[2017-03-27] MEDS ORDERED: MIDAZOLAM 1 MG/ML 2 ML INJ ONE (12:15)
[2017-03-27] MEDS ORDERED: HEPARIN 1000 UNITS/ML 10 ML INJ ONE (12:17)
--- NOTE | 2017-03-27 13:19 | CONS ---
Date/Time of Note Date/Time of Note DATE: 03/27/17 TIME: 13:17 Assessment/Plan Assessment/Plan Problems: (1) Type 2 diabetes mellitus without complications Status: Chronic Comment: Improved glycemic control w/ reduced dosage of levemir overnight. Will follow. Pt. likely to be d/c'ed tomorrow. Agree w/ this. Cont. this insulin doses on d/c. Qualifiers: Diabetes mellitus intermediate card tender insulin use: with intermediate card tender use Qualified Code : E11.9 - Type 2 diabetes mellitus without complication, with long-term current use of insulin Consultation Date/Type/Reason Admit Date/Time Mar 20, 2017 at 15:32 Initial Consult Date 03/23/17 Type of Consultation: Endocrinology Reason for Consultation T2DM management Referring Provider: JULIANNE ESTRELLA MD 24 HR Interval Summary Constitutional: improved, no complaints Detailed Summary Respiratory: no complaints Cardiovascular: no complaints Gastrointestinal: no complaints Genitourinary: no complaints Musculoskeletal: no complaints Neurologic: no complaints Exam/Review of Systems Vital Signs Vitals VS - Last 72 Hours, by Label Date Time Temp Pulse Resp B/P Pulse Ox O2 Delivery O2 Flow Rate FiO2 03/27/17 12:17 76 03/27/17 11:19 98.2 73 17 128/58 96 03/27/17 08:06 74 03/27/17 08:00 Nasal Cannula 2.0 03/27/17 07:57 97.7 69 18 104/57 100 03/27/17 07:30 72 03/27/17 07:30 72 03/27/17 07:00 74 03/27/17 06:30 73 03/27/17 06:00 74 03/27/17 05:30 69 03/27/17 05:00 77 03/27/17 04:30 72 18 03/27/17 04:30 75 03/27/17 04:26 81 03/27/17 03:54 97.5 79 18 97/54 97 03/27/17 00:00 86 03/26/17 23:53 98.0 84 18 124/64 98 03/26/17 22:51 Nasal Cannula 03/26/17 20:14 77 03/26/17 19:39 97.5 83 19 130/64 97 03/26/17 16:35 21 03/26/17 16:19 73 03/26/17 16:18 97.5 71 20 113/63 100 03/26/17 12:27 77 03/26/17 11:52 97.7 77 20 115/55 96 03/26/17 08:15 Nasal Cannula 2.0 03/26/17 08:08 97.0 69 18 100/56 98 03/26/17 08:07 68 03/26/17 04:21 97.8 69 19 112/59 100 03/26/17 04:00 78 03/26/17 00:00 82 03/25/17 23:56 98.0 77 20 121/70 97 03/25/17 22:40 Nasal Cannula 2.0 03/25/17 20:18 97.5 80 20 111/65 100 03/25/17 20:00 79 03/25/17 16:25 84 03/25/17 16:19 78 24 03/25/17 16:15 88 03/25/17 15:48 89 03/25/17 15:38 97.8 78 19 116/64 96 03/25/17 15:31 88 03/25/17 15:12 87 03/25/17 14:50 85 03/25/17 14:23 84 03/25/17 13:50 80 03/25/17 13:25 75 22 03/25/17 13:25 82 03/25/17 12:34 75 03/25/17 11:09 98.4 76 18 112/59 92 03/25/17 08:14 77 03/25/17 07:16 98.0 76 18 129/63 98 03/25/17 04:03 70 03/25/17 03:57 97.6 75 18 103/62 97 03/25/17 00:16 75 03/25/17 00:00 97.2 83 18 116/56 99 03/24/17 20:02 75 03/24/17 20:00 Nasal Cannula 2.0 03/24/17 19:58 97.6 75 18 109/69 98 03/24/17 18:58 Nasal Cannula 2.0 03/24/17 17:28 96 21 03/24/17 16:20 82 03/24/17 15:05 98.1 84 19 107/57 98 Vital Signs Date Time Temp Pulse Resp B/P Pulse Ox O2 Delivery O2 Flow Rate FiO2 03/27/17 12:17 76 7/5/17 11:19 98.2 17 128/58 96 03/27/17 08:00 Nasal Cannula 2.0 03/26/17 16:35 21 Intake and Output 03/26/17 03/26/17 03/27/17 15:00 23:00 07:00 Intake Total 200 ml 355 ml Output Total 120 ml 320 ml Balance 80 ml 35 ml Exam Constitutional: alert, frail, oriented Respiratory: clear to auscultation, normal air movement Cardiovascular: nl pulses, regular rate and rhythm, No edema, No murmurs/extra sounds, No rub Gastrointestinal: bowel sounds, nl liver, spleen, non-tender, soft, No mass, No rebound or guarding Musculoskeletal: nl extremities to inspection Extremities: normal pulses, No clubbing, No cyanosis, No edema 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: SURGERY NURSE II-XII intact, nl mental status, nl speech, nl strength Additional Comments Bedside Glucose - 72 Hours Test 03/24/17 17:14 03/24/17 20:39 03/25/17 07:27 03/25/17 12:23 Bedside Glucose 107mg/dL (70-220) 88mg/dL (70-220) 121mg/dL (70-220) 185mg/dL (70-220) Test 03/25/17 17:42 03/25/17 21:06 03/26/17 07:56 03/26/17 12:02 Bedside Glucose 122mg/dL (70-220) 102mg/dL (70-220) 78mg/dL (70-220) 184mg/dL (70-220) Test 03/26/17 16:55 03/26/17 21:01 03/27/17 08:01 03/27/17 13:05 Bedside Glucose 71mg/dL (70-220) 133mg/dL (70-220) 145mg/dL (70-220) 92mg/dL (70-220) Results Result Diagram: 03/27/17 0520 03/27/17 0520 Results 24 hrs Laboratory Tests Test 03/26/17 16:55 03/26/17 21:01 03/27/17 05:00 03/27/17 05:20 Bedside Glucose 71 133 Prothrombin Time 14.6 H Prothrombin Time Ratio 1.1 INR International Normalized Ratio 1.14 Activated Partial Thromboplast Time 31.9 White Blood Count 5.8 # Red Blood Count 3.26 L Hemoglobin 9.2 L Hematocrit 29.1 L Mean Corpuscular Volume 89.3 Mean Corpuscular Hemoglobin 28.2 L Mean Corpuscular Hemoglobin Concent 31.6 L Red Cell Distribution Width 16.1 H Platelet Count 78 L Mean Platelet Volume 12.4 H Neutrophils % 81.7 H Lymphocytes % 6.9 L Monocytes % 8.6 Eosinophils % 1.2 Basophils % 0.2 Nucleated Red Blood Cells % 0.0 Neutrophils # 4.8 Lymphocytes # 0.4 L Monocytes # 0.5 Eosinophils # 0.1 Basophils # 0.0 Nucleated Red Blood Cells # 0.0 Sodium Level 138 Potassium Level 4.5 Chloride Level 94 L Carbon Dioxide Level 28 Anion Gap 21 H Blood Urea Nitrogen 60 H Creatinine 3.66 H Glucose Level 116 # Calcium Level 9.6 Phosphorus Level 3.2 Test 03/27/17 08:01 03/27/17 13:05 Bedside Glucose 145 92 Medications Medications Current Medications Acetaminophen (Tylenol Tab) 650 mg Q6H PRN PO PAIN LEVEL 1-3 OR FEVER; Start at 17:00 Docusate Sodium (Colace) 100 mg Q12H PRN PO CONSTIPATION Last administered on 09:09; Admin Dose 100 MG; Start 03/20/17 at 17:00 Allopurinol (Zyloprim) 200 mg DAILY PO Last administered on 03/27/17 08:05; Admin Dose 200 MG; Start 03/21/17 at 09:00 Amlodipine Besylate (Norvasc) 5 mg DAILY PO Last administered on 03/24/17 09:36 ; Admin Dose 5 MG; Start 03/20/17 at 17:00 Clopidogrel Bisulfate (plaVIX) 75 mg DAILY PO Last administered on 03/27/17 08: 05; Admin Dose 75 MG; Start 03/21/17 at 09:00 Fenofibrate (Tricor) 145 mg DAILY PO Last administered on 03/27/17 08:05; Admin Dose 145 MG; Start 03/21/17 at 09:00 Levothyroxine Sodium (Synthroid) 50 mcg DAILY PO Last administered on 03/27/17 08:05; Admin Dose 50 MCG; Start 03/21/17 at 09:00 Metoprolol Succinate (Toprol Xl) 50 mg BID PO Last administered on 03/26/17 21: 14; Admin Dose 50 MG; Start 03/20/17 at 21:00 Cholecalciferol (Vitamin D) 2,000 unit DAILY PO Last administered on 03/27/17 08:04; Admin Dose 2,000 UNIT; Start 03/21/17 at 09:00 Pantoprazole (Protonix Tab) 40 mg DAILY@06 PO Last administered on 03/27/17 05: 42; Admin Dose 40 MG; Start 03/21/17 at 06:00 Miscellaneous Information 1 ea NOTE XX ; Start 03/20/17 at 17:30 Glucose (Glutose) 15 gm Q15M PRN PO DECREASED GLUCOSE; Start 03/20/17 at 17:30 Glucose (Glutose) 22.5 gm Q15M PRN PO DECREASED GLUCOSE; Start 03/20/17 at 17: 30 Dextrose (D50w Syringe) 25 ml Q15M PRN IV DECREASED GLUCOSE; Start 03/20/17 at 17:30 Dextrose (D50w Syringe) 50 ml Q15M PRN IV DECREASED GLUCOSE; Start 03/20/17 at 17:30 Glucagon (Glucagen) 1 mg Q15M PRN IM DECREASED GLUCOSE; Start 03/20/17 at 17:30 Glucose (Glutose) 15 gm Q15M PRN BUCCAL DECREASED GLUCOSE; Start 03/20/17 at 17 :30 Aspirin (Aspirin) 81 mg DAILY PO Last administered on 03/26/17 09:05; Admin Dose 81 MG; Start 03/21/17 at 13:30 Multivit/Ca Carb/ B Cmplx/FA/Prenat (Nadiya-Ozzie) 1 tab DAILY PO Last administered on 03/27/17 08:05; Admin Dose 1 TAB; Start 03/22/17 at 09:00 Epoetin Magdiel (Epogen (Esrd)) 10,000 units MoWeFr@17 SC Last administered on 03/25 17:00; Admin Dose 10,000 UNITS; Start 03/22/17 at 17:00 Oxycodone/ Acetaminophen (Percocet (5/ 325)) 1 tab Q4H PRN PO REPORTED NON- CARDIAC PAIN 4-7; Start 03/22/17 at 19:30 Al Hydrox/Mg Hydrox/Simethicone (Mag-Al Plus) 30 ml Q4H PRN PO GASTROINTESTINAL UPSET; Start 03/22/17 at 19:30 Ondansetron HCl (Zofran Inj) 4 mg Q4H PRN IV NAUSEA AND/OR VOMITING; Start at 19:30 Isosorbide Dinitrate (Isordil) 10 mg BID PO Last administered on 03/26/17 21:14 ; Admin Dose 10 MG; Start 03/24/17 at 21:00 Insulin Detemir (Levemir) 10 unit DAILY@20 SC Last administered on 03/26/17 21: 34; Admin Dose 10 UNIT; Start 03/26/17 at 20:00 JACQUES KATZ MD Mar 27, 2017 13:19
--- NOTE | 2017-03-27 15:14 | RADRPT ---
PROCEDURE: PLACEMENT OF RIGHT INTERNAL JUGULAR VENOUS TUNNELED DIALYSIS CATHETER. CLINICAL INDICATION: Renal failure. TECHNIQUE: Prior to the procedure, informed consent was obtained. Risks including bleeding, infection, and pneu mothorax were explained to the patient. The patient understood and was willing to proceed. A procedu ral pause was performed. The patient's name, date of , and procedure to be performed were verif ied. The central line was inserted with all elements of maximal sterile barrier technique. All of th e following were used: head covering, facial mask, sterile gown, sterile gloves, a large sterile she et, hand hygiene, and 2% chlorhexidine for cutaneous antisepsis. The right neck and anterior/super ior chest wall was prepped and draped in usual sterile fashion. Following the local injection of Xylocaine, a 0.035 in Amplatz guidewire was advanced through the ex isting temporary dialysis catheter. A tunnel was then created from the anterior lateral aspect of t he superior right chest wall to the puncture site in the neck and the catheter was pulled through th e tract. The existing temporary dialysis catheter was removed over the guidewire. Serial dilatatio n was then performed and a 16 [place] peel away sheath was introduced. The 14.5 [place] 23cm long tip to cuff Angiodynamics BioFlo DuraMax dialysis catheter was advanced through the 16 [place] peel-away sheath. The tip of the catheter was confirmed in position within the right atrium. The peel-away sh eath was removed. The 2 ports were each flushed with 2.3 ml of 1:1000 heparin. The catheter was sec ured to the skin with 2-0 silk. The wound in the neck was closed with 4-0 Vicryl suture using subcu ticular running technique. The site was dressed. The patient tolerated the procedure well. COMPARISON: None. FINDINGS: Final radiographic images demonstrate the tip of the catheter in the upper right atrium. A total of 0.2 minutes of fluoroscopy time was used. 5 fluoroscopic guided images were obtained with image int ensifier. IMPRESSION: 1. Percutaneous insertion of right internal jugular dialysis tunneled dialysis catheter under fluoro scopic guidance. RPTAT: QQ .Ousmane Diallo MD, Date Time Electronically viewed and signed by .Ousmane Diallo MD, on 03/27/2017 15:13 .R/
[2017-03-27] MEDS: EPOETIN 10000 UNITS/1 ML INJ (ESRD) SC SCH (17:21)
[2017-03-27] MEDS: INSULIN DETEMIR [LEVEMIR] 3ML CART SC SCH (20:58)
[2017-03-28] VITALS (12 sets, daily range): BP systolic 106–129; BP diastolic 53–63; PULSE 70–83; RESP 17–19
[2017-03-28] MEDS: PANTOPRAZOLE (EC) 40 MG TAB PO SCH (06:22)
[2017-03-28] MEDS: CLOPIDOGREL 75 MG TAB PO SCH (08:15)
[2017-03-28] MEDS: FENOFIBRATE 145 MG TAB PO SCH (08:15)
[2017-03-28] MEDS: ALLOPURINOL 100 MG TAB PO SCH (08:15)
[2017-03-28] MEDS: LEVOTHYROXINE 50 MCG TAB PO SCH (08:16)
[2017-03-28] MEDS: ISOSORBIDE DINITRATE 10 MG TAB PO SCH ×2 (08:16→20:47)
[2017-03-28] MEDS: CHOLECALCIFEROL 2,000 UNIT CAP PO SCH (08:16)
[2017-03-28] MEDS: MULTIVIT/CA CARB/B CMPLX/FA TAB PO SCH (08:16)
[2017-03-28] MEDS: ASPIRIN 81 MG TAB PO SCH (08:16)
[2017-03-28] MEDS: AMLODIPINE 5 MG TAB PO SCH (08:16)
[2017-03-28] MEDS: METOPROLOL (XL) 50 MG TAB PO SCH ×2 (08:17→20:44)
[2017-03-28] MEDS: INSULIN ASPART [NOVOLOG] 3 ML PEN SC SCH ×7 (08:22→20:43)
--- NOTE | 2017-03-28 09:02 | PN ---
Date/Time of Note Date/Time of Note DATE: 03/28/17 TIME: 08:59 Assessment/Plan VTE Prophylaxis VTE Prophylaxis Intervention: other Lines/Catheters IV Catheter Type (from Nrsg): perma cath Urinary Cath still in place: No Assessment/Plan Assessment/Plan 1. CKD, tolerating HD well, next HD tomm 2. Await disposition with case management 3. [place], [place], stable without chest pain and chf resolving Subjective 24 Hr Interval Summary Respiratory: cough, shortness of breath Cardiovascular: chest pain Gastrointestinal: no complaints Genitourinary: no complaints Exam/Review of Systems Vital Signs Vitals Vital Signs Date Time Temp Pulse Resp B/P Pulse Ox O2 Delivery O2 Flow Rate FiO2 03/28/17 08:06 79 03/28/17 07:58 97.5 18 129/63 94 03/27/17 20:00 Nasal Cannula 2.0 03/26/17 16:35 21 Intake and Output 03/27/17 03/27/17 03/28/17 15:00 23:00 07:00 Intake Total 300 ml 900 ml 400 ml Output Total 2300 ml 500 ml 400 ml Balance -2000 ml 400 ml 0 ml Exam Neck: jvd (tunnel catheter in place right side of neck) Respiratory: diminished breath sounds (and only few rales present) Cardiovascular: S3, S4, regular rate and rhythm, systolic murmur (09/28) Gastrointestinal: hepatomegaly, splenomegaly, tender Extremities: edema (and no calf tend) Results Result Diagram: 03/27/17 0520 03/27/17 0520 Results 24 hrs Laboratory Tests Test 03/27/17 13:05 03/27/17 17:18 03/27/17 20:39 03/28/17 05:52 Bedside Glucose 92 152 142 Lab Scanned Report BLOOD TRANSFUSION Test 03/28/17 08:13 Bedside Glucose 143 Medications Medications Current Medications Acetaminophen (Tylenol Tab) 650 mg Q6H PRN PO PAIN LEVEL 1-3 OR FEVER; Start at 17:00 Docusate Sodium (Colace) 100 mg Q12H PRN PO CONSTIPATION Last administered on 09:09; Admin Dose 100 MG; Start 03/20/17 at 17:00 Allopurinol (Zyloprim) 200 mg DAILY PO Last administered on 03/28/17 08:15; Admin Dose 200 MG; Start 03/21/17 at 09:00 Amlodipine Besylate (Norvasc) 5 mg DAILY PO Last administered on 03/28/17 08:16 ; Admin Dose 5 MG; Start 03/20/17 at 17:00 Clopidogrel Bisulfate (plaVIX) 75 mg DAILY PO Last administered on 03/28/17 08: 15; Admin Dose 75 MG; Start 03/21/17 at 09:00 Fenofibrate (Tricor) 145 mg DAILY PO Last administered on 03/28/17 08:15; Admin Dose 145 MG; Start 03/21/17 at 09:00 Levothyroxine Sodium (Synthroid) 50 mcg DAILY PO Last administered on 03/28/17 08:16; Admin Dose 50 MCG; Start 03/21/17 at 09:00 Metoprolol Succinate (Toprol Xl) 50 mg BID PO Last administered on 03/28/17 08: 17; Admin Dose 50 MG; Start 03/20/17 at 21:00 Cholecalciferol (Vitamin D) 2,000 unit DAILY PO Last administered on 03/28/17 08:16; Admin Dose 2,000 UNIT; Start 03/21/17 at 09:00 Pantoprazole (Protonix Tab) 40 mg DAILY@06 PO Last administered on 03/28/17 06: 22; Admin Dose 40 MG; Start 03/21/17 at 06:00 Miscellaneous Information 1 ea NOTE XX ; Start 03/20/17 at 17:30 Glucose (Glutose) 15 gm Q15M PRN PO DECREASED GLUCOSE; Start 03/20/17 at 17:30 Glucose (Glutose) 22.5 gm Q15M PRN PO DECREASED GLUCOSE; Start 03/20/17 at 17: 30 Dextrose (D50w Syringe) 25 ml Q15M PRN IV DECREASED GLUCOSE; Start 03/20/17 at 17:30 Dextrose (D50w Syringe) 50 ml Q15M PRN IV DECREASED GLUCOSE; Start 03/20/17 at 17:30 Glucagon (Glucagen) 1 mg Q15M PRN IM DECREASED GLUCOSE; Start 03/20/17 at 17:30 Glucose (Glutose) 15 gm Q15M PRN BUCCAL DECREASED GLUCOSE; Start 03/20/17 at 17 :30 Aspirin (Aspirin) 81 mg DAILY PO Last administered on 03/28/17 08:16; Admin Dose 81 MG; Start 03/21/17 at 13:30 Multivit/Ca Carb/ B Cmplx/FA/Prenat (Nadiya-Ozzie) 1 tab DAILY PO Last administered on 03/28/17 08:16; Admin Dose 1 TAB; Start 03/22/17 at 09:00 Epoetin Magdiel (Epogen (Esrd)) 10,000 units MoWeFr@17 SC Last administered on 03/27 17:21; Admin Dose 10,000 UNITS; Start 03/22/17 at 17:00 Oxycodone/ Acetaminophen (Percocet (5/ 325)) 1 tab Q4H PRN PO REPORTED NON- CARDIAC PAIN 4-7; Start 03/22/17 at 19:30 Al Hydrox/Mg Hydrox/Simethicone (Mag-Al Plus) 30 ml Q4H PRN PO GASTROINTESTINAL UPSET; Start 03/22/17 at 19:30 Ondansetron HCl (Zofran Inj) 4 mg Q4H PRN IV NAUSEA AND/OR VOMITING; Start at 19:30 Isosorbide Dinitrate (Isordil) 10 mg BID PO Last administered on 03/28/17 08:16 ; Admin Dose 10 MG; Start 03/24/17 at 21:00 Insulin Detemir (Levemir) 10 unit DAILY@20 SC Last administered on 03/27/17 20: 58; Admin Dose 10 UNIT; Start 03/26/17 at 20:00 JULIANNE ESTRELLA MD Mar 28, 2017 09:02
--- NOTE | 2017-03-28 13:15 | PN ---
Date/Time of Note Date/Time of Note DATE: 03/28/17 TIME: 13:12 Assessment/Plan VTE Prophylaxis VTE Prophylaxis Intervention: other (thrombocytopenia) Lines/Catheters IV Catheter Type (from Nrs): Saline Lock Urinary Cath still in place: No Assessment/Plan Assessment/Plan Pt is recovering well. MDS to be followed after he leaves the hospital with Dr. Lee. No blood products needed today. Subjective 24 Hr Interval Summary Free Text/Dictation Pt is feeling better. Eating lunch and cheerful. Exam/Review of Systems Vital Signs Vitals Vital Signs Date Time Temp Pulse Resp B/P Pulse Ox O2 Delivery O2 Flow Rate FiO2 03/28/17 12:07 78 03/28/17 11:32 97.9 17 111/53 98 03/27/17 20:00 Nasal Cannula 2.0 03/26/17 16:35 21 Intake and Output 03/27/17 03/27/17 03/28/17 15:00 23:00 07:00 Intake Total 300 ml 900 ml 400 ml Output Total 2300 ml 500 ml 400 ml Balance -2000 ml 400 ml 0 ml Exam Constitutional: alert, oriented Head: normocephalic Eyes: nl conjunctiva Neck: supple Respiratory: clear to auscultation Cardiovascular: regular rate and rhythm Gastrointestinal: soft Skin: ecchymosis Results Result Diagram: 03/27/17 0520 03/27/17 0520 Results 24 hrs Laboratory Tests Test 03/27/17 17:18 03/27/17 20:39 03/28/17 05:52 03/28/17 08:13 Bedside Glucose 152 142 143 Lab Scanned Report BLOOD TRANSFUSION Test 03/28/17 12:04 Bedside Glucose 200 Medications Medications Current Medications Acetaminophen (Tylenol Tab) 650 mg Q6H PRN PO PAIN LEVEL 1-3 OR FEVER; Start at 17:00 Docusate Sodium (Colace) 100 mg Q12H PRN PO CONSTIPATION Last administered on 09:09; Admin Dose 100 MG; Start 03/20/17 at 17:00 Allopurinol (Zyloprim) 200 mg DAILY PO Last administered on 03/28/17 08:15; Admin Dose 200 MG; Start 03/21/17 at 09:00 Amlodipine Besylate (Norvasc) 5 mg DAILY PO Last administered on 03/28/17 08:16 ; Admin Dose 5 MG; Start 03/20/17 at 17:00 Clopidogrel Bisulfate (plaVIX) 75 mg DAILY PO Last administered on 03/28/17 08: 15; Admin Dose 75 MG; Start 03/21/17 at 09:00 Fenofibrate (Tricor) 145 mg DAILY PO Last administered on 03/28/17 08:15; Admin Dose 145 MG; Start 03/21/17 at 09:00 Levothyroxine Sodium (Synthroid) 50 mcg DAILY PO Last administered on 03/28/17 08:16; Admin Dose 50 MCG; Start 03/21/17 at 09:00 Metoprolol Succinate (Toprol Xl) 50 mg BID PO Last administered on 03/28/17 08: 17; Admin Dose 50 MG; Start 03/20/17 at 21:00 Cholecalciferol (Vitamin D) 2,000 unit DAILY PO Last administered on 03/28/17 08:16; Admin Dose 2,000 UNIT; Start 03/21/17 at 09:00 Pantoprazole (Protonix Tab) 40 mg DAILY@06 PO Last administered on 03/28/17 06: 22; Admin Dose 40 MG; Start 03/21/17 at 06:00 Miscellaneous Information 1 ea NOTE XX ; Start 03/20/17 at 17:30 Glucose (Glutose) 15 gm Q15M PRN PO DECREASED GLUCOSE; Start 03/20/17 at 17:30 Glucose (Glutose) 22.5 gm Q15M PRN PO DECREASED GLUCOSE; Start 03/20/17 at 17: 30 Dextrose (D50w Syringe) 25 ml Q15M PRN IV DECREASED GLUCOSE; Start 03/20/17 at 17:30 Dextrose (D50w Syringe) 50 ml Q15M PRN IV DECREASED GLUCOSE; Start 03/20/17 at 17:30 Glucagon (Glucagen) 1 mg Q15M PRN IM DECREASED GLUCOSE; Start 03/20/17 at 17:30 Glucose (Glutose) 15 gm Q15M PRN BUCCAL DECREASED GLUCOSE; Start 03/20/17 at 17 :30 Aspirin (Aspirin) 81 mg DAILY PO Last administered on 03/28/17 08:16; Admin Dose 81 MG; Start 03/21/17 at 13:30 Multivit/Ca Carb/ B Cmplx/FA/Prenat (Nadiya-Ozzie) 1 tab DAILY PO Last administered on 03/28/17 08:16; Admin Dose 1 TAB; Start 03/22/17 at 09:00 Epoetin Magdiel (Epogen (Esrd)) 10,000 units MoWeFr@17 SC Last administered on 03/27 17:21; Admin Dose 10,000 UNITS; Start 03/22/17 at 17:00 Oxycodone/ Acetaminophen (Percocet (5/ 325)) 1 tab Q4H PRN PO REPORTED NON- CARDIAC PAIN 4-7; Start 03/22/17 at 19:30 Al Hydrox/Mg Hydrox/Simethicone (Mag-Al Plus) 30 ml Q4H PRN PO GASTROINTESTINAL UPSET; Start 03/22/17 at 19:30 Ondansetron HCl (Zofran Inj) 4 mg Q4H PRN IV NAUSEA AND/OR VOMITING; Start at 19:30 Isosorbide Dinitrate (Isordil) 10 mg BID PO Last administered on 03/28/17 08:16 ; Admin Dose 10 MG; Start 03/24/17 at 21:00 Insulin Detemir (Levemir) 10 unit DAILY@20 SC Last administered on 03/27/17 20: 58; Admin Dose 10 UNIT; Start 03/26/17 at 20:00 JULIANNE RIOS MD Mar 28, 2017 13:14
--- NOTE | 2017-03-28 13:44 | CONS ---
Date/Time of Note Date/Time of Note DATE: 03/28/17 TIME: 13:41 Assessment/Plan Assessment/Plan Problems: (1) Type 2 diabetes mellitus without complications Status: Chronic Comment: His blood sugar control continues to do well. Continue on his present insulin regimen with a plan to use the same regimen as an outpatient. 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 Constitutional: no complaints Exam/Review of Systems Vital Signs Vitals Vital Signs Date Time Temp Pulse Resp B/P Pulse Ox O2 Delivery O2 Flow Rate FiO2 03/28/17 12:07 78 03/28/17 11:32 97.9 17 111/53 98 03/27/17 20:00 Nasal Cannula 2.0 03/26/17 16:35 21 Intake and Output 03/27/17 03/27/17 03/28/17 15:00 23:00 07:00 Intake Total 300 ml 900 ml 400 ml Output Total 2300 ml 500 ml 400 ml Balance -2000 ml 400 ml 0 ml Exam No changes Results Result Diagram: 03/27/17 0520 03/27/17 0520 Results 24 hrs Laboratory Tests Test 03/27/17 17:18 03/27/17 20:39 03/28/17 05:52 03/28/17 08:13 Bedside Glucose 152 142 143 Lab Scanned Report BLOOD TRANSFUSION Test 03/28/17 12:04 Bedside Glucose 200 Medications Medications Current Medications Acetaminophen (Tylenol Tab) 650 mg Q6H PRN PO PAIN LEVEL 1-3 OR FEVER; Start at 17:00 Docusate Sodium (Colace) 100 mg Q12H PRN PO CONSTIPATION Last administered on 09:09; Admin Dose 100 MG; Start 03/20/17 at 17:00 Allopurinol (Zyloprim) 200 mg DAILY PO Last administered on 03/28/17 08:15; Admin Dose 200 MG; Start 03/21/17 at 09:00 Amlodipine Besylate (Norvasc) 5 mg DAILY PO Last administered on 03/28/17 08:16 ; Admin Dose 5 MG; Start 03/20/17 at 17:00 Clopidogrel Bisulfate (plaVIX) 75 mg DAILY PO Last administered on 03/28/17 08: 15; Admin Dose 75 MG; Start 03/21/17 at 09:00 Fenofibrate (Tricor) 145 mg DAILY PO Last administered on 03/28/17 08:15; Admin Dose 145 MG; Start 03/21/17 at 09:00 Levothyroxine Sodium (Synthroid) 50 mcg DAILY PO Last administered on 03/28/17 08:16; Admin Dose 50 MCG; Start 03/21/17 at 09:00 Metoprolol Succinate (Toprol Xl) 50 mg BID PO Last administered on 03/28/17 08: 17; Admin Dose 50 MG; Start 03/20/17 at 21:00 Cholecalciferol (Vitamin D) 2,000 unit DAILY PO Last administered on 03/28/17 08:16; Admin Dose 2,000 UNIT; Start 03/21/17 at 09:00 Pantoprazole (Protonix Tab) 40 mg DAILY@06 PO Last administered on 03/28/17 06: 22; Admin Dose 40 MG; Start 03/21/17 at 06:00 Miscellaneous Information 1 ea NOTE XX ; Start 03/20/17 at 17:30 Glucose (Glutose) 15 gm Q15M PRN PO DECREASED GLUCOSE; Start 03/20/17 at 17:30 Glucose (Glutose) 22.5 gm Q15M PRN PO DECREASED GLUCOSE; Start 03/20/17 at 17: 30 Dextrose (D50w Syringe) 25 ml Q15M PRN IV DECREASED GLUCOSE; Start 03/20/17 at 17:30 Dextrose (D50w Syringe) 50 ml Q15M PRN IV DECREASED GLUCOSE; Start 03/20/17 at 17:30 Glucagon (Glucagen) 1 mg Q15M PRN IM DECREASED GLUCOSE; Start 03/20/17 at 17:30 Glucose (Glutose) 15 gm Q15M PRN BUCCAL DECREASED GLUCOSE; Start 03/20/17 at 17 :30 Aspirin (Aspirin) 81 mg DAILY PO Last administered on 03/28/17 08:16; Admin Dose 81 MG; Start 03/21/17 at 13:30 Multivit/Ca Carb/ B Cmplx/FA/Prenat (Nadiya-Ozzie) 1 tab DAILY PO Last administered on 03/28/17 08:16; Admin Dose 1 TAB; Start 03/22/17 at 09:00 Epoetin Magdiel (Epogen (Esrd)) 10,000 units MoWeFr@17 SC Last administered on 03/27 17:21; Admin Dose 10,000 UNITS; Start 03/22/17 at 17:00 Oxycodone/ Acetaminophen (Percocet (5/ 325)) 1 tab Q4H PRN PO REPORTED NON- CARDIAC PAIN 4-7; Start 03/22/17 at 19:30 Al Hydrox/Mg Hydrox/Simethicone (Mag-Al Plus) 30 ml Q4H PRN PO GASTROINTESTINAL UPSET; Start 03/22/17 at 19:30 Ondansetron HCl (Zofran Inj) 4 mg Q4H PRN IV NAUSEA AND/OR VOMITING; Start at 19:30 Isosorbide Dinitrate (Isordil) 10 mg BID PO Last administered on 03/28/17 08:16 ; Admin Dose 10 MG; Start 03/24/17 at 21:00 Insulin Detemir (Levemir) 10 unit DAILY@20 SC Last administered on 03/27/17 20: 58; Admin Dose 10 UNIT; Start 03/26/17 at 20:00 ERICK ORANTES MD Mar 28, 2017 13:44
[2017-03-28] MEDS: INSULIN DETEMIR [LEVEMIR] 3ML CART SC SCH (20:51)
--- NOTE | 2017-03-28 23:29 | CONS ---
Date/Time of Note Date/Time of Note DATE: 03/28/17 TIME: 23:23 Assessment/Plan Assessment/Plan Chief Complaint/Hosp Course Impression: - NSTEMI- recurrent, has occluded LM with un revascularized area of distal LCx and Proximal LAD. 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 pt s/p PCI with INGA x 1 to SVG-OM1 mid graft stenosis with good result. - CKD- iHD initiated via dialysis catheter for fluid mgmt - Acute on chronic systolic heart failure- likely related to ESRD and fluid overload, fluid mgmt with iHD - s/p ICD normal fxn, h/o VT/VF - Myleofibrosis with anemia s/p transfusion, also now thrombocytopenia, will need to cont asa/plavix given PCI with INGA. ok to hold heparin products Recommendations: - cont asa 81mg daily - cont plavix 75 mg daily - cont metoprolol as tolerated - cont nitrate given area of LCx/LAD territory that can not be revascularized - f/u as outpt Problems: Consultation Date/Type/Reason Admit Date/Time Mar 20, 2017 at 15:32 Initial Consult Date 03/22/17 Type of Consultation: cardiology Referring Provider: JULIANNE ESTRELLA MD 24 HR Interval Summary Free Text/Dictation no acute events. pt states feeling well, no cp/sob. has not been walking around much. on iHD today tele reviewed no events Detailed Summary ENT: no complaints Respiratory: no complaints Cardiovascular: no complaints Exam/Review of Systems Vital Signs Vitals Vital Signs Date Time Temp Pulse Resp B/P Pulse Ox O2 Delivery O2 Flow Rate FiO2 03/28/17 20:09 Nasal Cannula 2.0 03/28/17 19:57 98.0 84 19 106/55 97 03/26/17 16:35 21 Intake and Output 03/27/17 03/27/17 03/28/17 15:00 23:00 07:00 Intake Total 300 ml 900 ml 400 ml Output Total 2300 ml 500 ml 400 ml Balance -2000 ml 400 ml 0 ml Exam Constitutional: alert, oriented Psych: no complaints Head: normocephalic Eyes: nl conjunctiva ENMT: nl external ears & nose Neck: non-tender, R iHD port in place Respiratory: CTA Cardiovascular: nl pulses, regular rate and rhythm, No edema Gastrointestinal: non-tender, soft Musculoskeletal: nl extremities to inspection 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: [employer] ENG[employer]ER II-XII intact Results Result Diagram: 03/27/17 0520 03/27/17 0520 Results 24 hrs Laboratory Tests Test 03/28/17 05:52 03/28/17 08:13 03/28/17 12:04 03/28/17 17:01 Lab Scanned Report BLOOD TRANSFUSION Bedside Glucose 143 200 99 Test 03/28/17 20:31 Bedside Glucose 172 Medications Medications Current Medications Acetaminophen (Tylenol Tab) 650 mg Q6H PRN PO PAIN LEVEL 1-3 OR FEVER; Start at 17:00 Docusate Sodium (Colace) 100 mg Q12H PRN PO CONSTIPATION Last administered on 09:09; Admin Dose 100 MG; Start 03/20/17 at 17:00 Allopurinol (Zyloprim) 200 mg DAILY PO Last administered on 03/28/17 08:15; Admin Dose 200 MG; Start 03/21/17 at 09:00 Amlodipine Besylate (Norvasc) 5 mg DAILY PO Last administered on 03/28/17 08:16 ; Admin Dose 5 MG; Start 03/20/17 at 17:00 Clopidogrel Bisulfate (plaVIX) 75 mg DAILY PO Last administered on 03/28/17 08: 15; Admin Dose 75 MG; Start 03/21/17 at 09:00 Fenofibrate (Tricor) 145 mg DAILY PO Last administered on 03/28/17 08:15; Admin Dose 145 MG; Start 03/21/17 at 09:00 Levothyroxine Sodium (Synthroid) 50 mcg DAILY PO Last administered on 03/28/17 08:16; Admin Dose 50 MCG; Start 03/21/17 at 09:00 Metoprolol Succinate (Toprol Xl) 50 mg BID PO Last administered on 03/28/17 08: 17; Admin Dose 50 MG; Start 03/20/17 at 21:00 Cholecalciferol (Vitamin D) 2,000 unit DAILY PO Last administered on 03/28/17 08:16; Admin Dose 2,000 UNIT; Start 03/21/17 at 09:00 Pantoprazole (Protonix Tab) 40 mg DAILY@06 PO Last administered on 03/28/17 06: 22; Admin Dose 40 MG; Start 03/21/17 at 06:00 Miscellaneous Information 1 ea NOTE XX ; Start 03/20/17 at 17:30 Glucose (Glutose) 15 gm Q15M PRN PO DECREASED GLUCOSE; Start 03/20/17 at 17:30 Glucose (Glutose) 22.5 gm Q15M PRN PO DECREASED GLUCOSE; Start 03/20/17 at 17: 30 Dextrose (D50w Syringe) 25 ml Q15M PRN IV DECREASED GLUCOSE; Start 03/20/17 at 17:30 Dextrose (D50w Syringe) 50 ml Q15M PRN IV DECREASED GLUCOSE; Start 03/20/17 at 17:30 Glucagon (Glucagen) 1 mg Q15M PRN IM DECREASED GLUCOSE; Start 03/20/17 at 17:30 Glucose (Glutose) 15 gm Q15M PRN BUCCAL DECREASED GLUCOSE; Start 03/20/17 at 17 :30 Aspirin (Aspirin) 81 mg DAILY PO Last administered on 03/28/17 08:16; Admin Dose 81 MG; Start 03/21/17 at 13:30 Multivit/Ca Carb/ B Cmplx/FA/Prenat (Nadiya-Ozzie) 1 tab DAILY PO Last administered on 03/28/17 08:16; Admin Dose 1 TAB; Start 03/22/17 at 09:00 Epoetin Magdiel (Epogen (Esrd)) 10,000 units MoWeFr@17 SC Last administered on 03/27 17:21; Admin Dose 10,000 UNITS; Start 03/22/17 at 17:00 Oxycodone/ Acetaminophen (Percocet (5/ 325)) 1 tab Q4H PRN PO REPORTED NON- CARDIAC PAIN 4-7; Start 03/22/17 at 19:30 Al Hydrox/Mg Hydrox/Simethicone (Mag-Al Plus) 30 ml Q4H PRN PO GASTROINTESTINAL UPSET; Start 03/22/17 at 19:30 Ondansetron HCl (Zofran Inj) 4 mg Q4H PRN IV NAUSEA AND/OR VOMITING; Start at 19:30 Isosorbide Dinitrate (Isordil) 10 mg BID PO Last administered on 03/28/17 20:47 ; Admin Dose 10 MG; Start 03/24/17 at 21:00 Insulin Detemir (Levemir) 10 unit DAILY@20 SC Last administered on 03/28/17 20: 51; Admin Dose 10 UNIT; Start 03/26/17 at 20:00 Procedures Procedures cxr images reviewed: improved pulm edema SAMY ROSALES Mar 28, 2017 23:29
[2017-03-29] VITALS (13 sets, daily range): BP systolic 108–132; BP diastolic 53–70; PULSE 88–93; RESP 18
[2017-03-29] MEDS: PANTOPRAZOLE (EC) 40 MG TAB PO SCH (06:19)
[2017-03-29 07:02] LABS: ADD SCAN DIFF NO
[2017-03-29 07:06] LABS: ABNORMAL IP MESSAGE 1; EOSINOPHILS # 0.1 10^3/ul (0.0-0.5); EOSINOPHILS % 1.2 % (0.0-7.0); HEMATOCRIT 29.2 % (42.0-52.0); HEMOGLOBIN 9.3 g/dl (14.0-18.0); LYMPHOCYTES # 0.3 10^3/ul (0.8-2.9); LYMPHOCYTES % 5.4 % (15.0-51.0); MEAN CORPUSCULAR HEMOGLOBIN 28.6 pg (29.0-33.0); MEAN CORPUSCULAR HGB CONC 31.8 g/dl (32.0-37.0); MEAN CORPUSCULAR VOLUME 89.8 fl (82.0-101.0); MONOCYTE # 0.5 10^3/ul (0.3-0.9); MONOCYTES % 8.7 % (0.0-11.0); NEUTROPHIL # 4.3 10^3/ul (1.6-7.5); RED BLOOD COUNT 3.25 10^6/ul (4.70-6.10); RED CELL DISTRIBUTION WIDTH 16.8 % (11.5-14.5); WHITE BLOOD COUNT 5.2 10^3/ul (4.8-10.8)
[2017-03-29 07:08] LABS: PLATELET COUNT 93 10^3/UL (140-415)
[2017-03-29 07:24] LABS: ALBUMIN 4.4 g/dl (3.3-4.9); ALBUMIN/GLOBULIN RATIO 1.69; BILIRUBIN,INDIRECT 0.5 mg/dl (0-1.1); BILIRUBIN,TOTAL 0.5 mg/dl (0.2-1.3); CALCIUM 9.5 mg/dl (8.4-10.2); CREATININE 2.95 mg/dl (0.61-1.24); POTASSIUM 3.8 mmol/L (3.5-5.1)
[2017-03-29] MEDS: AMLODIPINE 5 MG TAB PO SCH (08:02)
[2017-03-29] MEDS: ISOSORBIDE DINITRATE 10 MG TAB PO SCH (08:02)
[2017-03-29] MEDS: METOPROLOL (XL) 50 MG TAB PO SCH (08:03)
--- NOTE | 2017-03-29 08:06 | PN ---
Date/Time of Note Date/Time of Note DATE: 03/29/17 TIME: 08:03 Assessment/Plan VTE Prophylaxis VTE Prophylaxis Intervention: other Lines/Catheters IV Catheter Type (from Nrs): Saline Lock Assessment/Plan Assessment/Plan 1. Acute and chronic renal failure, now requiring continued OP dialysis 2. Acute [place], stable, Chf resolved 3. Anemia stable 4. DM, control is good 5. Plan to dc today if all arranged with ecf and dialysis facility 6. I asked wound care to make rec to be followed after transfer to ecf Subjective 24 Hr Interval Summary Respiratory: No cough, No shortness of breath Cardiovascular: No chest pain Gastrointestinal: no complaints Genitourinary: no complaints Exam/Review of Systems Vital Signs Vitals Vital Signs Date Time Temp Pulse Resp B/P Pulse Ox O2 Delivery O2 Flow Rate FiO2 03/29/17 07:43 98.1 91 18 116/58 98 03/28/17 20:09 Nasal Cannula 2.0 03/26/17 16:35 21 Intake and Output 03/28/17 03/28/17 03/29/17 15:00 23:00 07:00 Intake Total 950 ml 250 ml Output Total 800 ml 350 ml Balance 150 ml -100 ml Exam Neck: No jvd Respiratory: other (only a few dry rales bilat) Cardiovascular: regular rate and rhythm Gastrointestinal: soft Extremities: No edema Results Result Diagram: 03/29/17 0616 03/29/17 0615 Results 24 hrs Laboratory Tests Test 03/28/17 08:13 03/28/17 12:04 03/28/17 17:01 03/28/17 20:31 Bedside Glucose 143 200 99 172 Test 03/29/17 06:11 03/29/17 06:15 03/29/17 06:16 Bedside Glucose 136 Sodium Level 139 Potassium Level 3.8 Chloride Level 96 L Carbon Dioxide Level 28 Anion Gap 19 H Blood Urea Nitrogen 50 H Creatinine 2.95 H Glucose Level 134 Calcium Level 9.5 Total Bilirubin 0.5 Direct Bilirubin 0.00 Indirect Bilirubin 0.5 Aspartate Amino Transf (AST/SGOT) 39 Alanine Aminotransferase (ALT/SGPT) 79 H Alkaline Phosphatase 27 L Total Protein 7.0 Albumin 4.4 Globulin 2.60 Albumin/Globulin Ratio 1.69 White Blood Count 5.2 Red Blood Count 3.25 L Hemoglobin 9.3 L Hematocrit 29.2 L Mean Corpuscular Volume 89.8 Mean Corpuscular Hemoglobin 28.6 L Mean Corpuscular Hemoglobin Concent 31.8 L Red Cell Distribution Width 16.8 H Platelet Count 93 L Mean Platelet Volume 13.0 H Neutrophils % 83.0 H Lymphocytes % 5.4 L Monocytes % 8.7 Eosinophils % 1.2 Basophils % 0.0 Nucleated Red Blood Cells % 0.0 Neutrophils # 4.3 Lymphocytes # 0.3 L Monocytes # 0.5 Eosinophils # 0.1 Basophils # 0.0 Nucleated Red Blood Cells # 0.0 Medications Medications Current Medications Acetaminophen (Tylenol Tab) 650 mg Q6H PRN PO PAIN LEVEL 1-3 OR FEVER; Start at 17:00 Docusate Sodium (Colace) 100 mg Q12H PRN PO CONSTIPATION Last administered on 09:09; Admin Dose 100 MG; Start 03/20/17 at 17:00 Allopurinol (Zyloprim) 200 mg DAILY PO Last administered on 03/28/17 08:15; Admin Dose 200 MG; Start 03/21/17 at 09:00 Amlodipine Besylate (Norvasc) 5 mg DAILY PO Last administered on 03/28/17 08:16 ; Admin Dose 5 MG; Start 03/20/17 at 17:00 Clopidogrel Bisulfate (plaVIX) 75 mg DAILY PO Last administered on 03/28/17 08: 15; Admin Dose 75 MG; Start 03/21/17 at 09:00 Fenofibrate (Tricor) 145 mg DAILY PO Last administered on 03/28/17 08:15; Admin Dose 145 MG; Start 03/21/17 at 09:00 Levothyroxine Sodium (Synthroid) 50 mcg DAILY PO Last administered on 03/28/17 08:16; Admin Dose 50 MCG; Start 03/21/17 at 09:00 Metoprolol Succinate (Toprol Xl) 50 mg BID PO Last administered on 03/28/17 08: 17; Admin Dose 50 MG; Start 03/20/17 at 21:00 Cholecalciferol (Vitamin D) 2,000 unit DAILY PO Last administered on 03/28/17 08:16; Admin Dose 2,000 UNIT; Start 03/21/17 at 09:00 Pantoprazole (Protonix Tab) 40 mg DAILY@06 PO Last administered on 03/29/17 06: 19; Admin Dose 40 MG; Start 03/21/17 at 06:00 Miscellaneous Information 1 ea NOTE XX ; Start 03/20/17 at 17:30 Glucose (Glutose) 15 gm Q15M PRN PO DECREASED GLUCOSE; Start 03/20/17 at 17:30 Glucose (Glutose) 22.5 gm Q15M PRN PO DECREASED GLUCOSE; Start 03/20/17 at 17: 30 Dextrose (D50w Syringe) 25 ml Q15M PRN IV DECREASED GLUCOSE; Start 03/20/17 at 17:30 Dextrose (D50w Syringe) 50 ml Q15M PRN IV DECREASED GLUCOSE; Start 03/20/17 at 17:30 Glucagon (Glucagen) 1 mg Q15M PRN IM DECREASED GLUCOSE; Start 03/20/17 at 17:30 Glucose (Glutose) 15 gm Q15M PRN BUCCAL DECREASED GLUCOSE; Start 03/20/17 at 17 :30 Aspirin (Aspirin) 81 mg DAILY PO Last administered on 03/28/17 08:16; Admin Dose 81 MG; Start 03/21/17 at 13:30 Multivit/Ca Carb/ B Cmplx/FA/Prenat (Nadiya-Ozzie) 1 tab DAILY PO Last administered on 03/28/17 08:16; Admin Dose 1 TAB; Start 03/22/17 at 09:00 Epoetin Magdiel (Epogen (Esrd)) 10,000 units MoWeFr@17 SC Last administered on 03/27 17:21; Admin Dose 10,000 UNITS; Start 03/22/17 at 17:00 Oxycodone/ Acetaminophen (Percocet (5/ 325)) 1 tab Q4H PRN PO REPORTED NON- CARDIAC PAIN 4-7; Start 03/22/17 at 19:30 Al Hydrox/Mg Hydrox/Simethicone (Mag-Al Plus) 30 ml Q4H PRN PO GASTROINTESTINAL UPSET; Start 03/22/17 at 19:30 Ondansetron HCl (Zofran Inj) 4 mg Q4H PRN IV NAUSEA AND/OR VOMITING; Start at 19:30 Isosorbide Dinitrate (Isordil) 10 mg BID PO Last administered on 03/28/17 20:47 ; Admin Dose 10 MG; Start 03/24/17 at 21:00 Insulin Detemir (Levemir) 10 unit DAILY@20 SC Last administered on 03/28/17t 20: 51; Admin Dose 10 UNIT; Start 03/26/17 at 20:00 JULIANNE ESTRELLA MD Mar 29, 2017 08:05
[2017-03-29] MEDS: FENOFIBRATE 145 MG TAB PO SCH (08:11)
[2017-03-29] MEDS: MULTIVIT/CA CARB/B CMPLX/FA TAB PO SCH (08:11)
[2017-03-29] MEDS: CLOPIDOGREL 75 MG TAB PO SCH (08:11)
[2017-03-29] MEDS: ALLOPURINOL 100 MG TAB PO SCH (08:11)
[2017-03-29] MEDS: LEVOTHYROXINE 50 MCG TAB PO SCH (08:11)
[2017-03-29] MEDS: CHOLECALCIFEROL 2,000 UNIT CAP PO SCH (08:11)
[2017-03-29] MEDS: ASPIRIN 81 MG TAB PO SCH (08:11)
[2017-03-29] MEDS ORDERED: CHOL20003 PO (08:15)
[2017-03-29] MEDS ORDERED: ALLO100T64 PO (08:15)
[2017-03-29] MEDS ORDERED: NOVO3I SC ×2 (08:15)
[2017-03-29] MEDS ORDERED: DOCU-216 PO (08:15)
[2017-03-29] MEDS ORDERED: METO50TA16 PO (08:15)
[2017-03-29] MEDS ORDERED: NEPH PO (08:15)
[2017-03-29] MEDS ORDERED: PANT40TA4 PO (08:15)
[2017-03-29] MEDS: INSULIN ASPART [NOVOLOG] 3 ML PEN SC SCH ×4 (08:27→11:50)
--- NOTE | 2017-03-29 09:15 | PN ---
Date/Time of Note Date/Time of Note DATE: 03/29/17 TIME: 09:03 Assessment/Plan VTE Prophylaxis VTE Prophylaxis Intervention: contraindicated VTE Contraindication Reason: bleeding Lines/Catheters IV [facility] Saline Lock Assessment/Plan Chief Complaint/Hosp Course Pt has hx of myelofibrosis and is taking Jakafi. Admitted with c/o difficulty sleeping and orthopnea/PND. Pt has undergone coronary angiography with angioplasty and stent placement. Symptoms improved. Plt ct lower than usual on admit. Pt has been started on hemodialysis and has had the placement of a tunneled dialysis catheter. Jakafi is being held. . Problems: (1) Thrombocytopenia Status: Acute (2) Arteriosclerosis of coronary artery in patient with history of myocardial infarction Status: Chronic (3) Myelofibrosis Status: Chronic (4) Type 2 diabetes mellitus without complications Status: Chronic Qualifiers: Diabetes mellitus manager terminal insulin use: with fci use Qualified Code : E11.9 - Type 2 diabetes mellitus without complication, with long-term current use of insulin (5) Acute on chronic renal failure Assessment/Plan Pt's platelet count is now 93,000. This increase is consistent with the platelet transfusion received 03/27 prior to catheter placement. Pt is likely to be discharged after today's dialysis. Will f/u as OP if pt decides to transfer henatologic [facility] to the [facility]. Subjective 24 Hr Interval Summary Free Text/Dictation Pt had placement of tunneled dialysis catheter on 03/27 without bleeding complications. Exam/Review of Systems Vital Signs Vitals Vital Signs Date Time Temp Pulse Resp B/P Pulse Ox O2 Delivery O2 Flow Rate FiO2 03/29/17 08:10 89 03/29/17 07:43 98.1 18 116/58 98 03/28/17 20:09 Nasal Cannula 2.0 03/26/17 16:35 21 Intake and Output 03/28/17 03/28/17 03/29/17 15:00 23:00 07:00 Intake Total 950 ml 250 ml Output Total 800 ml 350 ml Balance 150 ml -100 ml Exam Constitutional: alert, oriented, well developed Head: atraumatic, normocephalic Eyes: EOMI, PERRL, nl conjunctiva, nl sclera ENMT: mucosa pink and moist Neck: non-tender, supple Respiratory: clear to auscultation, normal air movement Cardiovascular: nl pulses, other (sternotomy scar present. Tunneled Rt subclavian dialysis catheter in place. Surrounding ecchy.), regular rate and rhythm Gastrointestinal: nl liver, spleen, non-tender, soft Musculoskeletal: nl extremities to inspection Extremities: normal pulses 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: DRAFTER ELECTRONIC II-XII intact, nl mental status, nl speech, nl strength Skin: ecchymosis, nl turgor, other (eccy and prupura on arms and ecchy on Rt chest wall in area of insertion of tunneled catheter.) Results Result Diagram: 03/29/17 0616 03/29/17 0615 Results 24 hrs Laboratory Tests Test 03/28/17 12:04 03/28/17 17:01 03/28/17 20:31 03/29/17 06:11 Bedside Glucose 200 99 172 136 Test 03/29/17 06:15 03/29/17 06:16 03/29/17 07:58 Sodium Level 139 Potassium Level 3.8 Chloride Level 96 L Carbon Dioxide Level 28 Anion Gap 19 H Blood Urea Nitrogen 50 H Creatinine 2.95 H Glucose Level 134 Calcium Level 9.5 Total Bilirubin 0.5 Direct Bilirubin 0.00 Indirect Bilirubin 0.5 Aspartate Amino Transf (AST/SGOT) 39 Alanine Aminotransferase (ALT/SGPT) 79 H Alkaline Phosphatase 27 L Total Protein 7.0 Albumin 4.4 Globulin 2.60 Albumin/Globulin Ratio 1.69 White Blood Count 5.2 Red Blood Count 3.25 L Hemoglobin 9.3 L Hematocrit 29.2 L Mean Corpuscular Volume 89.8 Mean Corpuscular Hemoglobin 28.6 L Mean Corpuscular Hemoglobin Concent 31.8 L Red Cell Distribution Width 16.8 H Platelet Count 93 L Mean Platelet Volume 13.0 H Neutrophils % 83.0 H Lymphocytes % 5.4 L Monocytes % 8.7 Eosinophils % 1.2 Basophils % 0.0 Nucleated Red Blood Cells % 0.0 Neutrophils # 4.3 Lymphocytes # 0.3 L Monocytes # 0.5 Eosinophils # 0.1 Basophils # 0.0 Nucleated Red Blood Cells # 0.0 Bedside Glucose 145 Medications Medications Current Medications Acetaminophen (Tylenol Tab) 650 mg Q6H PRN PO PAIN LEVEL 1-3 OR FEVER; Start at 17:00 Docusate Sodium (Colace) 100 mg Q12H PRN PO CONSTIPATION Last administered on 09:09; Admin Dose 100 MG; Start 03/20/17 at 17:00 Allopurinol (Zyloprim) 200 mg DAILY PO Last administered on 03/29/17 08:11; Admin Dose 200 MG; Start 03/21/17 at 09:00 Amlodipine Besylate (Norvasc) 5 mg DAILY PO Last administered on 03/28/17 08:16 ; Admin Dose 5 MG; Start 03/20/17 at 17:00 Clopidogrel Bisulfate (plaVIX) 75 mg DAILY PO Last administered on 03/29/17 08: 11; Admin Dose 75 MG; Start 03/21/17 at 09:00 Fenofibrate (Tricor) 145 mg DAILY PO Last administered on 03/29/17 08:11; Admin Dose 145 MG; Start 03/21/17 at 09:00 Levothyroxine Sodium (Synthroid) 50 mcg DAILY PO Last administered on 03/29/17 08:11; Admin Dose 50 MCG; Start 03/21/17 at 09:00 Metoprolol Succinate (Toprol Xl) 50 mg BID PO Last administered on 03/28/17 08: 17; Admin Dose 50 MG; Start 03/20/17 at 21:00 Cholecalciferol (Vitamin D) 2,000 unit DAILY PO Last administered on 03/29/17 08:11; Admin Dose 2,000 UNIT; Start 03/21/17 at 09:00 Pantoprazole (Protonix Tab) 40 mg DAILY@06 PO Last administered on 03/29/17 06: 19; Admin Dose 40 MG; Start 03/21/17 at 06:00 Miscellaneous Information 1 ea NOTE XX ; Start 03/20/17 at 17:30 Glucose (Glutose) 15 gm Q15M PRN PO DECREASED GLUCOSE; Start 03/20/17 at 17:30 Glucose (Glutose) 22.5 gm Q15M PRN PO DECREASED GLUCOSE; Start 03/20/17 at 17: 30 Dextrose (D50w Syringe) 25 ml Q15M PRN IV DECREASED GLUCOSE; Start 03/20/17 at 17:30 Dextrose (D50w Syringe) 50 ml Q15M PRN IV DECREASED GLUCOSE; Start 03/20/17 at 17:30 Glucagon (Glucagen) 1 mg Q15M PRN IM DECREASED GLUCOSE; Start 03/20/17 at 17:30 Glucose (Glutose) 15 gm Q15M PRN BUCCAL DECREASED GLUCOSE; Start 03/20/17 at 17 :30 Aspirin (Aspirin) 81 mg DAILY PO Last administered on 03/29/17 08:11; Admin Dose 81 MG; Start 03/21/17 at 13:30 Multivit/Ca Carb/ B Cmplx/FA/Prenat (Nadiya-Ozzie) 1 tab DAILY PO Last administered on 03/29/17 08:11; Admin Dose 1 TAB; Start 03/22/17 at 09:00 Epoetin Magdiel (Epogen (Esrd)) 10,000 units MoWeFr@17 SC Last administered on 03/27 17:21; Admin Dose 10,000 UNITS; Start 03/22/17 at 17:00 Oxycodone/ Acetaminophen (Percocet (5/ 325)) 1 tab Q4H PRN PO REPORTED NON- CARDIAC PAIN 4-7; Start 03/22/17 at 19:30 Al Hydrox/Mg Hydrox/Simethicone (Mag-Al Plus) 30 ml Q4H PRN PO GASTROINTESTINAL UPSET; Start 03/22/17 at 19:30 Ondansetron HCl (Zofran Inj) 4 mg Q4H PRN IV NAUSEA AND/OR VOMITING; Start at 19:30 Isosorbide Dinitrate (Isordil) 10 mg BID PO Last administered on 03/28/17 20:47 ; Admin Dose 10 MG; Start 03/24/17 at 21:00 Insulin Detemir (Levemir) 10 unit DAILY@20 SC Last administered on 03/28/17 20: 51; Admin Dose 10 UNIT; Start 03/26/17 at 20:00 Copies To: CC: JULIANNE ESTRELLA MD, STANLEY H MD Mar 29, 2017 09:13
== END 2017-03-29 12:59 | DRG 246 ==
LOC: MS4 15:32 → ICU 19:59 → TEL 03-23 19:40
PROVIDERS: ADMIT Internal Medicine; ATTEND Internal Medicine
PROC: 5A1D60Z (ICD-10-PCS; 2017-03-20)
PROC: 05HM33Z Insertion of Infusion Device into Right Internal Jugular Vein, Percutaneous Approach (ICD-10-PCS; 2017-03-20)
PROC: 4A023N7 Measurement of Cardiac Sampling and Pressure, Left Heart, Percutaneous Approach (ICD-10-PCS; 2017-03-22)
PROC: B213YZZ Fluoroscopy of Multiple Coronary Artery Bypass Grafts using Other Contrast (ICD-10-PCS; 2017-03-22)
PROC: B211YZZ Fluoroscopy of Multiple Coronary Arteries using Other Contrast (ICD-10-PCS; 2017-03-22)
PROC: 027034Z Dilation of Coronary Artery, One Artery with Drug-eluting Intraluminal Device, Percutaneous Approach (ICD-10-PCS; principal; 2017-03-22 16:30)
PROC: 0JH63XZ Insertion of Tunneled Vascular Access Device into Chest Subcutaneous Tissue and Fascia, Percutaneous Approach (ICD-10-PCS; 2017-03-27)
PROC: 05HM33Z Insertion of Infusion Device into Right Internal Jugular Vein, Percutaneous Approach (ICD-10-PCS; 2017-03-27)
DX: I21.4 Non-ST elevation (NSTEMI) myocardial infarction (principal); I50.23 Acute on chronic systolic (congestive) heart failure; N17.9 Acute kidney failure, unspecified; L89.153 Pressure ulcer of sacral region, stage 3; N18.6 End stage renal disease; D75.81 Myelofibrosis; D69.6 Thrombocytopenia, unspecified; I13.2 Hypertensive heart and chronic kidney disease with heart failure and with stage 5 chronic kidney disease, or end stage renal disease; I25.810 Atherosclerosis of coronary artery bypass graft(s) without angina pectoris; E11.22 Type 2 diabetes mellitus with diabetic chronic kidney disease; E03.9 Hypothyroidism, unspecified; E78.5 Hyperlipidemia, unspecified; D63.1 Anemia in chronic kidney disease; F32.9 Major depressive disorder, single episode, unspecified; I25.5 Ischemic cardiomyopathy; D46.9 Myelodysplastic syndrome, unspecified; I25.10 Atherosclerotic heart disease of native coronary artery without angina pectoris; I25.2 Old myocardial infarction; Z95.1 Presence of aortocoronary bypass graft; Z95.810 Presence of automatic (implantable) cardiac defibrillator; Z79.4 Long term (current) use of insulin; Z95.5 Presence of coronary angioplasty implant and graft
CPT/HCPCS: 36430; 36556; 36600; 70450; 71010; 76700; 76942; 80048; 80053; 80076; 80162; 80202; 81001; 82140; 82270; 82306; 82607; 82728; 82803; 82962; 83540; 83735; 84100; 84132; 84436; 84443; 84479; 84484; 85025; 85378; 85384; 85610; 85730; 86022; 86644; 86704; 86709; 86803; 86850; 86900; 86901; 86920; 87040; 87081; 87086; 87340; 90935; 92610; 92978; 93005; 93306; 93459; 93970; 97110; 97116; 97162; C1725; C1752; C1753; C1760; C1769; C1874; C1887; C1894; C9600; J0885; J1644; J1815; J2250; J3010; J3370; J3420; J3480; J7040; J7050; J7070; P9016; P9035; Q4081; Q9967

== ENCOUNTER 2017-08-30 07:17 | Day surgery (SDC) | payer MEDICARE, BC ==
--- NOTE | 2017-07-31 06:11 | CONS ---
DATE OF ADMISSION: 08/02/2017 DATE OF CONSULTATION: REFERRING PHYSICIAN: Dr. Lucio Guthrie Thank you very much for allowing me to evaluate the above patient who is to undergo placement of a v ascular access in his right upper extremity for the treatment of ongoing chronic renal failure. HISTORICAL EVENTS: As you well know, this patient has been maintained on dialysis for approximately 4 to 5 months via a central vascular catheter. Because of his need for continued dialysis, a perma nent access was thought appropriate. Today, he denies substernal chest pain, shortness of breath at rest. He notes mild dyspnea unchanged with exertion without radiating neck, arm or jaw discomfort. He denies nausea, vomiting, abdominal pain. He has mild constipation, makes a small amount of uri ne without dysuria, flank pain, fever or chills. MEDICATIONS: Include: 1. Nadiya-Ozzie 1 per day. 2. Toprol 100 mg per day. 3. Januvia 25 mg per day. 4. Isordil 30 mg b.i.d. 5. Levothyroxine 75 mcg per day. 6. B12 100 mcg per day. 7. Aranesp 40 mcg weekly. 8. Vitamin D3 4000 units per day. 9. Folic acid 400 mg per day. 10. Vitamin B6 25 mg day. 11. Lipitor 20 mg per day. 12. Levemir 8 units daily. 13. Humalog 6 units before meals. 14. Fenofibrate 145 mg per day. 15. Plavix was discontinued. 16. Allopurinol 200 mg per day. 17. Xanax 0.5 mg per day. 18. 5 mg daily. 19. Norvasc 2.5 per day. PAST MEDICAL HISTORY: 1. Known multilevel spinal stenosis with bilateral footdrop. 2. Known coronary artery disease, undergoing CABS in 1994 and in 03/2000, angioplasty and right cor onary stent placed, suffering a new DE in 06/2013 as well as 03/2017, ultimately undergoing PCI to [facility] with good results, ICD was placed. 3. Last colonoscopy was 11/2004. 4. History of kidney stones, now quiescent. 5. Known myelofibrosis being followed by Dr. Lee. 6. Appendectomy. 7. Right inguinal hernia repair. 8. Hyperlipidemia. 9. Hypertension. 10. 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 11. History of gout, quiescent. 12. Diabetes since 01/2007. Insulin was started in the summer of 2014. ALLERGIES: INCLUDE NIACIN. FAMILY HISTORY: Positive for dementia and lymphoma. 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 PHYSICAL EXAMINATION: GENERAL: Debilitated elderly male in no acute distress. VITAL SIGNS: BP 101/71 sitting, 100/72 standing, respirations were 18. He was afebrile. EYES: Extraocular muscles were full. NOSE, MOUTH AND THROAT: Were normal. NECK: Supple without jugular venous distention, thyroid enlargement or adenopathy. Carotids 2+, no bruits. LUNGS: Clear. HEART: Rhythm regular, I/ systolic murmur. No third or fourth sound. ABDOMEN: Nontender. Liver and spleen were not palpable. No masses or tenderness were noted. EXTREMITIES: No edema. Pulses were reduced. SKIN: Exam revealed a longitudinal erythematous lesion that is not warm and red and a shallow ulcer ation involving the sacrum. IMPRESSION: I forsee no problems with your planned surgical intervention pending labs. Will be gla d to see him postoperatively if needed. Dictated By: JULIANNE TRAN/ROSANGELA Conf#: [id number] DID#: [id number]
[~2017-08-30] VITALS: Ht 172.7 cm; Wt 71.0 kg
[~2017-08-30 07:17] MED LIST changes: +CHOL200073 PO; -DARB10SY IJ; -DIGO125T PO; +DOCU-216 PO; +HEPARIN 1000 UNITS/ML 10 ML INJ IRR ONE; -INSU100C3 SQ; -LAS20 PO; -LEVEM SC; +LIDOCAINE 1% (MPF) 30 ML INJ INJ ONE; +METO-319 PO; -METO100T13 PO; +NEPH PO; +NITR0.4T32 SL; -NITR0.4T6 SL; +NOVO3I SC; +PANT40TA4 PO; -RUXO5TAB PO; -SITA25TA3 PO
[2017-08-30] MEDS ORDERED: LEVO75TA5 PO (08:17)
[2017-08-30] MEDS ORDERED: ALLO100T PO (08:18)
[2017-08-30] MEDS ORDERED: AMLO2.5T78 PO (08:18)
[2017-08-30] MEDS ORDERED: ISOS30TA5 PO (08:19)
[2017-08-30 08:23] VITALS: Ht 172.7 cm; Wt 71.0 kg
[2017-08-30] MEDS ORDERED: SITA25TA3 PO ×2 (08:23→08:24)
[2017-08-30] MEDS ORDERED: DIAZ5TAB4 PO (08:24)
[2017-08-30] MEDS ORDERED: METO-336 PO (08:24)
[2017-08-30] MEDS ORDERED: INSU100C SQ (08:25)
[2017-08-30] MEDS ORDERED: LEVEM SC (08:26)
--- NOTE | 2017-08-30 08:26 | HPN ---
Date/Time of Note Date/Time of Note DATE: 08/30/17 TIME: 08:26 Interval H&P Admission Note Pt. seen H&P reviewed: No system changes ADITYA TRUONG MD Aug 30, 2017 08:26
[2017-08-30] MEDS ORDERED: PYRI50TA80 PO (08:27)
[2017-08-30] MEDS ORDERED: FOLI-49 PO (08:27)
[2017-08-30] MEDS ORDERED: CYAN500T46 PO (08:27)
[2017-08-30] MEDS ORDERED: ASPI81TA3 PO (08:28)
[2017-08-30] MEDS ORDERED: NITR0.4T32 SL (08:28)
[2017-08-30 08:29] VITALS: BP 126/58; PULSE 71; RESP 20
[2017-08-30] MEDS ORDERED: LIDOCAINE 1% (MPF) 30 ML INJ ONE (08:29)
[2017-08-30] MEDS ORDERED: HEPARIN 1000 UNITS/ML 10 ML INJ ONE (08:29)
[2017-08-30] MEDS ORDERED: THROMBIN 5000 UNIT VIAL ONE (08:29)
[2017-08-30] MEDS ORDERED: GELATIN SIZE 100 SPONGE ONE (08:29)
[2017-08-30 08:58] LABS: BASOPHILS % 0.2 % (0.0-2.0); EOSINOPHILS # 0.2 10^3/ul (0.0-0.5); HEMATOCRIT 33.1 % (42.0-52.0); HEMOGLOBIN 10.6 g/dl (14.0-18.0); LYMPHOCYTES # 0.9 10^3/ul (0.8-2.9); LYMPHOCYTES % 8.3 % (15.0-51.0); MEAN CORPUSCULAR HEMOGLOBIN 31.2 pg (29.0-33.0); MEAN CORPUSCULAR VOLUME 97.4 fl (82.0-101.0); MEAN PLATELET VOLUME 12.3 fl (7.4-10.4); MONOCYTE # 0.8 10^3/ul (0.3-0.9); MONOCYTES % 7.5 % (0.0-11.0); NEUTROPHIL # 8.8 10^3/ul (1.6-7.5); NEUTROPHILS % 79.2 % (39.0-77.0); NUCLEATED RED BLOOD CELLS% 0.2 /100WBC (0.0-0.0); PLATELET COUNT 237 10^3/UL (140-415); RED CELL DISTRIBUTION WIDTH 17.2 % (11.5-14.5); WHITE BLOOD COUNT 11.2 10^3/ul (4.8-10.8)
[2017-08-30 08:59] LABS: INR 1.11; PROTIME 14.5 Sec (11.9-14.9); PT RATIO 1.1
[2017-08-30 09:00] LABS: PARTIAL THROMBOPLASTIN TIME 31.5 Sec (25.0-35.0)
[2017-08-30 09:44] LABS: ALBUMIN 4.2 g/dl (3.3-4.9); ALBUMIN/GLOBULIN RATIO 1.4; BILIRUBIN,INDIRECT 0.2 mg/dl (0-1.1); BILIRUBIN,TOTAL 0.2 mg/dl (0.2-1.3); CALCIUM 10.1 mg/dl (8.4-10.2); CREATININE 5.96 mg/dl (0.61-1.24); TOTAL PROTEIN 7.2 g/dl (6.1-8.1)
[2017-08-30 09:47] LABS: POTASSIUM 6.5 mmol/L (3.5-5.1)
--- NOTE | 2017-09-03 14:23 | RADRPT ---
Vent Rate: 64 bpm RR Interval: 0 msec ND Interval: 190 msec QRS Duration: 144 msec QT Interval: 436 msec QTC Interval: 449 msec P-R-T Smilax: 56 - -56 - 90 degrees Normal sinus rhythm Left axis deviation Left ventricular hypertrophy with QRS widening Nonspecific T wave abnormality Abnormal ECG Electronically Signed By: Fab Daigle [id number]
== END 2017-08-30 11:50 | disposition home or self-care (01) ==
LOC: SDS 07:17
PROVIDERS: ATTEND Surgery Vascular Surgery
DX: N18.6 End stage renal disease (principal); I12.0 Hypertensive chronic kidney disease with stage 5 chronic kidney disease or end stage renal disease; Z53.9 Procedure and treatment not carried out, unspecified reason; E11.9 Type 2 diabetes mellitus without complications; E78.5 Hyperlipidemia, unspecified; I25.10 Atherosclerotic heart disease of native coronary artery without angina pectoris; Z95.1 Presence of aortocoronary bypass graft
CPT/HCPCS: 80053; 82962; 84132; 85025; 85610; 85730; 86850; 86900; 86901; 93005; J1644

== ENCOUNTER 2017-09-19 10:58 | Day surgery (SDC) | END 2017-09-19 18:06 | disposition home or self-care (01) ==

== ENCOUNTER → 2018-09-08 | Outpatient (CLI) | END | disposition home or self-care (01) ==

== ENCOUNTER 2019-05-08 12:40 | Inpatient (IN) | payer MEDICARE, BC ==
[~2019-05-08] VITALS: Ht 172.7 cm; Wt 77.3 kg
[2019-05-08] VITALS (13 sets, daily range): BP systolic 90–152; BP diastolic 45–95; PULSE 85–95; RESP 16–20; Ht 172.7 cm; Wt 77.3 kg
[2019-05-08] MEDS: METOPROLOL (XL) 50 MG TAB PO SCH ×2 (01:12→18:06)
[~2019-05-08 12:40] MED LIST changes: +ALLO100T PO; -ALLO100T64 PO; -AMLO-145 PO; +AMLO2.5T78 PO; +ASPI-903 PO; +CLOP75TA19 PO; -CLOP75TA4 PO; +CYAN500T46 PO; +DIAZ5TAB4 PO; -DOCU-216 PO; -FENO145T25 PO; +FOLI-49 PO; -HEPARIN 1000 UNITS/ML 10 ML INJ IRR ONE; +INSU100C SQ; +ISOS30TA67 PO; +LEVEM SC; -LEVO50TA83 PO; +LEVO75TA5 PO; -LIDOCAINE 1% (MPF) 30 ML INJ INJ ONE; -LOSA100T47 PO; -METO-319 PO; +METO-336 PO; -NEPH PO; -NOVO3I SC; -PANT40TA4 PO; +PYRI50TA15 PO; +SITA25TA3 PO
[2019-05-08] MEDS ORDERED: VANCOMYCIN IV PER PHARMACY XX SCH ×2 (13:00)
[2019-05-08] MEDS ORDERED: ONDANSETRON 4 MG INJ IV PRN (13:30)
[2019-05-08] MEDS ORDERED: DIAZEPAM 5 MG TAB PO PRN (13:30)
[2019-05-08] MEDS ORDERED: ZOLPIDEM 5 MG TAB PO PRN (13:30)
[2019-05-08] MEDS ORDERED: ACETAMINOPHEN 325 MG TAB PO PRN (13:30)
[2019-05-08] MEDS: HYDROCODONE/APAP (5/325) TAB PO PRN (13:50)
[2019-05-08] MEDS ORDERED: GLUCOSE GEL 15 GRAM TUBE PO PRN ×2 (14:00)
[2019-05-08] MEDS ORDERED: GLUCAGON 1 MG INJ IM PRN (14:00)
[2019-05-08] MEDS ORDERED: NITROGLYCERIN (SL) 0.4 MG TAB SL PRN (14:00)
[2019-05-08] MEDS ORDERED: DEXTROSE 50% 50 ML SYRINGE IV PRN ×2 (14:00)
[2019-05-08] MEDS ORDERED: GLUCOSE GEL 15 GRAM TUBE BUCCAL PRN (14:00)
[2019-05-08] MEDS ORDERED: LIDOCAINE 1% (MDV) 20 ML INJ ONE (16:00)
[2019-05-08] MEDS: INSULIN ASPART [NOVOLOG] 3 ML PEN SC SCH (18:04)
[2019-05-08] MEDS: SEVELAMER CARBONATE 800 MG TABLET PO SCH (18:09)
[2019-05-08] MEDS ORDERED: INSULIN GLARGINE [LANTus] (100 UNITS/ML) SYG SC SCH (18:30)
[2019-05-08] MEDS: EPOETIN ALFA-EPBX (ESRD) 10,000 UNIT/ML VIAL SC SCH (18:50)
[2019-05-08] MEDS: ATORVASTATIN 20 MG TAB PO SCH (20:52)
[2019-05-08] MEDS: INSULIN GLARGINE [LANTus] (100 UNITS/ML) SYG SC SCH (20:57)
[2019-05-08] MEDS: NACL 0.9% 3 ML SYG IV SCH (20:58)
[2019-05-08] MEDS ORDERED: VANCOMYCIN 1 GM 250 ML IVPB ONE (22:00)
[2019-05-09] VITALS: BP 102/57; PULSE 95
[2019-05-09 00:15] VITALS: BP 113/85; PULSE 98
[2019-05-09 00:30] VITALS: BP 109/61; PULSE 97
[2019-05-09] MEDS: ACCU-CHEK XX SCH (02:00)
[2019-05-09] MEDS: LEVOTHYROXINE 75 MCG TAB PO SCH (06:56)
[2019-05-09 08:07] VITALS: BP 93/50; PULSE 81; RESP 18
[2019-05-09] MEDS: SEVELAMER CARBONATE 800 MG TABLET PO SCH ×3 (08:39→18:15)
[2019-05-09] MEDS: CLOPIDOGREL 75 MG TAB PO SCH (08:40)
[2019-05-09] MEDS: CYANOCOBALAMIN 500 MCG TAB PO SCH (08:40)
[2019-05-09] MEDS: METOPROLOL (XL) 50 MG TAB PO SCH ×2 (08:40→21:00)
[2019-05-09] MEDS: FOLIC ACID 1 MG TAB PO SCH (08:40)
[2019-05-09] MEDS: LINAGLIPTIN 5 MG TABLET PO SCH (08:40)
[2019-05-09] MEDS: MULTIVIT/CA CARB/B CMPLX/FA TAB PO SCH (08:41)
[2019-05-09] MEDS: CHOLECALCIFEROL 2,000 UNIT CAP PO SCH (08:41)
[2019-05-09] MEDS: ISOSORBIDE MONONITRATE(SR)30 MG TAB PO SCH (08:41)
[2019-05-09] MEDS: COLCHICINE 0.6 MG CAP PO SCH (08:42)
[2019-05-09] MEDS: AMIODARONE 200 MG TAB PO SCH (08:43)
[2019-05-09] MEDS: ASPIRIN 81 MG TAB PO SCH (08:44)
[2019-05-09] MEDS: PYRIDOXINE 50 MG TAB PO SCH (08:44)
[2019-05-09] MEDS: INSULIN ASPART [NOVOLOG] 3 ML PEN SC SCH ×3 (08:45→18:21)
[2019-05-09] MEDS ORDERED: AMLODIPINE 2.5 MG TAB PO SCH (09:00)
[2019-05-09] MEDS ORDERED: ALLOPURINOL 100 MG TAB PO SCH (09:00)
[2019-05-09] MEDS: predniSONE 20 MG TAB PO SCH (18:15)
[2019-05-09 20:30] VITALS: BP 108/52; PULSE 91; RESP 19
[2019-05-09] MEDS ORDERED: SPECIAL NON-STANDARD MEDICATION PO SCH (21:00)
[2019-05-09] MEDS: JAKAFI 5 MG PO SCH (21:44)
[2019-05-09] MEDS: ATORVASTATIN 20 MG TAB PO SCH (21:44)
[2019-05-09] MEDS: INSULIN GLARGINE [LANTus] (100 UNITS/ML) SYG SC SCH (21:50)
[2019-05-10] VITALS (19 sets, daily range): BP systolic 93–117; BP diastolic 40–63; PULSE 70–79; RESP 18–20
[2019-05-10] MEDS: ACCU-CHEK XX SCH (02:00)
[2019-05-10] MEDS: LEVOTHYROXINE 75 MCG TAB PO SCH (06:07)
[2019-05-10] MEDS: INSULIN ASPART [NOVOLOG] 3 ML PEN SC SCH ×3 (07:20→17:25)
[2019-05-10] MEDS: COLCHICINE 0.6 MG CAP PO SCH (08:28)
[2019-05-10] MEDS: ASPIRIN 81 MG TAB PO SCH (08:28)
[2019-05-10] MEDS: SEVELAMER CARBONATE 800 MG TABLET PO SCH ×3 (08:28→17:44)
[2019-05-10] MEDS: CHOLECALCIFEROL 2,000 UNIT CAP PO SCH (08:28)
[2019-05-10] MEDS: CLOPIDOGREL 75 MG TAB PO SCH (08:28)
[2019-05-10] MEDS: MULTIVIT/CA CARB/B CMPLX/FA TAB PO SCH (08:28)
[2019-05-10] MEDS: CYANOCOBALAMIN 500 MCG TAB PO SCH (08:29)
[2019-05-10] MEDS: LINAGLIPTIN 5 MG TABLET PO SCH (08:29)
[2019-05-10] MEDS: PYRIDOXINE 50 MG TAB PO SCH (08:29)
[2019-05-10] MEDS: FOLIC ACID 1 MG TAB PO SCH (08:29)
[2019-05-10] MEDS: APIXABAN 5 MG TABLET PO SCH ×2 (08:29→22:50)
[2019-05-10] MEDS: predniSONE 20 MG TAB PO SCH (08:29)
[2019-05-10] MEDS: ISOSORBIDE MONONITRATE(SR)30 MG TAB PO SCH (08:30)
[2019-05-10] MEDS: AMIODARONE 200 MG TAB PO SCH (08:30)
[2019-05-10] MEDS: METOPROLOL (XL) 50 MG TAB PO SCH ×2 (08:31→22:50)
[2019-05-10] MEDS: HYDROCODONE/APAP (5/325) TAB PO PRN (08:38)
[2019-05-10] MEDS: ATORVASTATIN 20 MG TAB PO SCH (22:50)
[2019-05-10] MEDS: JAKAFI 5 MG PO SCH (22:50)
[2019-05-10] MEDS: INSULIN GLARGINE [LANTus] (100 UNITS/ML) SYG SC SCH (22:52)
[2019-05-11] VITALS (17 sets, daily range): BP systolic 103–159; BP diastolic 43–72; PULSE 57–92; RESP 18
[2019-05-11] MEDS: ACCU-CHEK XX SCH (00:52)
[2019-05-11] MEDS: LEVOTHYROXINE 75 MCG TAB PO SCH (06:29)
[2019-05-11] MEDS: SEVELAMER CARBONATE 800 MG TABLET PO SCH ×3 (08:31→18:09)
[2019-05-11] MEDS: ASPIRIN 81 MG TAB PO SCH (08:31)
[2019-05-11] MEDS: CLOPIDOGREL 75 MG TAB PO SCH (08:31)
[2019-05-11] MEDS: MULTIVIT/CA CARB/B CMPLX/FA TAB PO SCH (08:31)
[2019-05-11] MEDS: FOLIC ACID 1 MG TAB PO SCH (08:32)
[2019-05-11] MEDS: APIXABAN 5 MG TABLET PO SCH (08:32)
[2019-05-11] MEDS: PYRIDOXINE 50 MG TAB PO SCH (08:32)
[2019-05-11] MEDS: LINAGLIPTIN 5 MG TABLET PO SCH (08:32)
[2019-05-11] MEDS: CHOLECALCIFEROL 2,000 UNIT CAP PO SCH (08:32)
[2019-05-11] MEDS: CYANOCOBALAMIN 500 MCG TAB PO SCH (08:32)
[2019-05-11] MEDS: INSULIN ASPART [NOVOLOG] 3 ML PEN SC SCH ×3 (08:33→18:09)
[2019-05-11] MEDS: METOPROLOL (XL) 50 MG TAB PO SCH (09:00)
[2019-05-11] MEDS: AMIODARONE 200 MG TAB PO SCH (09:00)
[2019-05-11] MEDS ORDERED: VANCOMYCIN 1.5 GM/NS 250 ML 250 ML IVPB SCH (09:00)
[2019-05-11] MEDS: ISOSORBIDE MONONITRATE(SR)30 MG TAB PO SCH (09:00)
[2019-05-11] MEDS: SOD FERRIC GLUC COMPLX 125 MG in SOD CHLORIDE 0.9% 100 ML IVPB SCH (12:28)
[2019-05-11] MEDS: HYDROCODONE/APAP (5/325) TAB PO PRN (14:40)
[2019-05-12] MEDS: CEFAZOLIN 2 GM/50 ML (PMX) 50 ML IVPB SCH (00:40)
[2019-05-12] MEDS: ATORVASTATIN 20 MG TAB PO SCH ×2 (00:41→20:34)
[2019-05-12] MEDS: JAKAFI 5 MG PO SCH ×2 (00:41→20:35)
[2019-05-12] MEDS: EPOETIN ALFA-EPBX (ESRD) 10,000 UNIT/ML VIAL SC SCH (00:47)
[2019-05-12] MEDS: METOPROLOL (XL) 50 MG TAB PO SCH ×4 (00:49→20:35)
[2019-05-12] MEDS: INSULIN GLARGINE [LANTus] (100 UNITS/ML) SYG SC SCH ×2 (00:51→20:37)
[2019-05-12] MEDS: ACCU-CHEK XX SCH (00:51)
[2019-05-12 01:24] VITALS: BP 121/58; PULSE 84; RESP 18
[2019-05-12] MEDS: LEVOTHYROXINE 75 MCG TAB PO SCH (05:59)
[2019-05-12 07:35] VITALS: BP 104/68; PULSE 72; RESP 20
[2019-05-12] MEDS: INSULIN ASPART [NOVOLOG] 3 ML PEN SC SCH ×6 (08:35→17:59)
[2019-05-12] MEDS: CYANOCOBALAMIN 500 MCG TAB PO SCH (08:36)
[2019-05-12] MEDS: CHOLECALCIFEROL 2,000 UNIT CAP PO SCH (08:36)
[2019-05-12] MEDS: FOLIC ACID 1 MG TAB PO SCH (08:36)
[2019-05-12] MEDS: AMIODARONE 200 MG TAB PO SCH (08:38)
[2019-05-12] MEDS: ISOSORBIDE MONONITRATE(SR)30 MG TAB PO SCH (08:39)
[2019-05-12] MEDS: MULTIVIT/CA CARB/B CMPLX/FA TAB PO SCH (08:45)
[2019-05-12] MEDS: LINAGLIPTIN 5 MG TABLET PO SCH (08:45)
[2019-05-12] MEDS: PYRIDOXINE 50 MG TAB PO SCH (08:49)
[2019-05-12] MEDS ORDERED: IOHEXOL 300MG/ML 150 ML BTL ONE ×2 (09:37→20:45)
[2019-05-12] MEDS: SOD FERRIC GLUC COMPLX 125 MG in SOD CHLORIDE 0.9% 100 ML IVPB SCH (12:52)
[2019-05-12 14:00] VITALS: BP 119/62; PULSE 82; RESP 18
[2019-05-12] MEDS: HYDROCODONE/APAP (5/325) TAB PO PRN (14:36)
[2019-05-12] MEDS: SEVELAMER CARBONATE 800 MG TABLET PO SCH (17:54)
[2019-05-12 19:41] VITALS: BP 107/52; PULSE 74; RESP 18
[2019-05-12] MEDS ORDERED: SOD CHLORIDE 0.9% 100 ML ONE (20:45)
[2019-05-13] VITALS (18 sets, daily range): BP systolic 102–124; BP diastolic 46–73; PULSE 64–85; RESP 16–20
[2019-05-13] MEDS: ACCU-CHEK XX SCH (01:38)
[2019-05-13] MEDS: LEVOTHYROXINE 75 MCG TAB PO SCH (06:21)
[2019-05-13] MEDS: INSULIN ASPART [NOVOLOG] 3 ML PEN SC SCH ×6 (07:20→18:06)
[2019-05-13] MEDS: ISOSORBIDE MONONITRATE(SR)30 MG TAB PO SCH (09:00)
[2019-05-13] MEDS: METOPROLOL (XL) 50 MG TAB PO SCH ×2 (09:00→20:52)
[2019-05-13] MEDS: MULTIVIT/CA CARB/B CMPLX/FA TAB PO SCH (09:25)
[2019-05-13] MEDS: CYANOCOBALAMIN 500 MCG TAB PO SCH (09:26)
[2019-05-13] MEDS: PYRIDOXINE 50 MG TAB PO SCH (09:26)
[2019-05-13] MEDS: FOLIC ACID 1 MG TAB PO SCH (09:26)
[2019-05-13] MEDS: CHOLECALCIFEROL 2,000 UNIT CAP PO SCH (09:26)
[2019-05-13] MEDS: AMIODARONE 200 MG TAB PO SCH (09:27)
[2019-05-13] MEDS: LINAGLIPTIN 5 MG TABLET PO SCH (09:27)
[2019-05-13] MEDS: TOBRAMYCIN 0.3% 5 ML OPH LEFT EYE SCH ×4 (12:03→20:52)
[2019-05-13] MEDS: SOD FERRIC GLUC COMPLX 125 MG in SOD CHLORIDE 0.9% 100 ML IVPB SCH (14:18)
[2019-05-13] MEDS: HYDROCODONE/APAP (5/325) TAB PO PRN (15:41)
[2019-05-13] MEDS: CEFAZOLIN 2 GM/50 ML (PMX) 50 ML IVPB SCH (18:09)
[2019-05-13] MEDS: SEVELAMER CARBONATE 800 MG TABLET PO SCH (18:09)
[2019-05-13] MEDS: EPOETIN ALFA-EPBX (ESRD) 10,000 UNIT/ML VIAL SC SCH (19:40)
[2019-05-13] MEDS: ATORVASTATIN 20 MG TAB PO SCH (20:52)
[2019-05-13] MEDS: JAKAFI 5 MG PO SCH (20:56)
[2019-05-13] MEDS: INSULIN GLARGINE [LANTus] (100 UNITS/ML) SYG SC SCH (20:57)
[2019-05-14] MEDS: ACCU-CHEK XX SCH (02:00)
[2019-05-14 02:15] VITALS: BP 130/56; PULSE 75; RESP 20
[2019-05-14] MEDS: HYDROCODONE/APAP (5/325) TAB PO PRN (03:16)
[2019-05-14] MEDS: LEVOTHYROXINE 75 MCG TAB PO SCH (06:18)
[2019-05-14 07:16] VITALS: BP 123/58; PULSE 67; RESP 18
[2019-05-14] MEDS: INSULIN ASPART [NOVOLOG] 3 ML PEN SC SCH ×6 (07:50→18:00)
[2019-05-14] MEDS: TOBRAMYCIN 0.3% 5 ML OPH LEFT EYE SCH ×4 (09:00→20:59)
[2019-05-14] MEDS: MULTIVIT/CA CARB/B CMPLX/FA TAB PO SCH (09:04)
[2019-05-14] MEDS: PYRIDOXINE 50 MG TAB PO SCH (09:05)
[2019-05-14] MEDS: METOPROLOL (XL) 50 MG TAB PO SCH ×2 (09:05→20:59)
[2019-05-14] MEDS: LINAGLIPTIN 5 MG TABLET PO SCH (09:05)
[2019-05-14] MEDS: FOLIC ACID 1 MG TAB PO SCH (09:05)
[2019-05-14] MEDS: ISOSORBIDE MONONITRATE(SR)30 MG TAB PO SCH (09:05)
[2019-05-14] MEDS: CHOLECALCIFEROL 2,000 UNIT CAP PO SCH (09:05)
[2019-05-14] MEDS: CYANOCOBALAMIN 500 MCG TAB PO SCH (09:05)
[2019-05-14] MEDS: AMIODARONE 200 MG TAB PO SCH (09:06)
[2019-05-14] MEDS: SOD FERRIC GLUC COMPLX 125 MG in SOD CHLORIDE 0.9% 100 ML IVPB SCH (12:42)
[2019-05-14 16:12] VITALS: BP 109/53; PULSE 77; RESP 18
[2019-05-14] MEDS: SEVELAMER CARBONATE 800 MG TABLET PO SCH (17:57)
[2019-05-14 20:24] VITALS: BP 105/53; PULSE 79; RESP 18
[2019-05-14] MEDS: ATORVASTATIN 20 MG TAB PO SCH (20:59)
[2019-05-14] MEDS: JAKAFI 5 MG PO SCH (21:01)
[2019-05-14] MEDS: INSULIN GLARGINE [LANTus] (100 UNITS/ML) SYG SC SCH (21:02)
[2019-05-15] VITALS (19 sets, daily range): BP systolic 90–138; BP diastolic 46–85; PULSE 73–93; RESP 16–19
[2019-05-15] MEDS: ACCU-CHEK XX SCH (02:00)
[2019-05-15] MEDS: LEVOTHYROXINE 75 MCG TAB PO SCH (07:00)
[2019-05-15] MEDS: INSULIN ASPART [NOVOLOG] 3 ML PEN SC SCH ×6 (07:20→18:08)
[2019-05-15] MEDS: TOBRAMYCIN 0.3% 5 ML OPH LEFT EYE SCH ×4 (09:00→20:36)
[2019-05-15] MEDS: CYANOCOBALAMIN 500 MCG TAB PO SCH (09:00)
[2019-05-15] MEDS: ISOSORBIDE MONONITRATE(SR)30 MG TAB PO SCH (09:00)
[2019-05-15] MEDS: FOLIC ACID 1 MG TAB PO SCH (09:00)
[2019-05-15] MEDS: CHOLECALCIFEROL 2,000 UNIT CAP PO SCH (09:00)
[2019-05-15] MEDS: METOPROLOL (XL) 50 MG TAB PO SCH ×2 (09:00→20:37)
[2019-05-15] MEDS: LINAGLIPTIN 5 MG TABLET PO SCH (09:00)
[2019-05-15] MEDS ORDERED: DEXTROSE 5% 1,000 ML IV SCH (09:00)
[2019-05-15] MEDS: MULTIVIT/CA CARB/B CMPLX/FA TAB PO SCH (09:00)
[2019-05-15] MEDS: PYRIDOXINE 50 MG TAB PO SCH (09:00)
[2019-05-15] MEDS: AMIODARONE 200 MG TAB PO SCH (09:00)
[2019-05-15] MEDS ORDERED: LIDOCAINE 1% (MDV) 20 ML INJ ONE (09:31)
[2019-05-15] MEDS: SOD FERRIC GLUC COMPLX 125 MG in SOD CHLORIDE 0.9% 100 ML IVPB SCH (12:50)
[2019-05-15] MEDS: SEVELAMER CARBONATE 800 MG TABLET PO SCH (17:26)
[2019-05-15] MEDS: CEFAZOLIN 1 GM/50 ML (PMX) 50 ML IVPB SCH (17:26)
[2019-05-15] MEDS: EPOETIN ALFA-EPBX (ESRD) 10,000 UNIT/ML VIAL SC SCH (17:38)
[2019-05-15] MEDS: CEFAZOLIN 2 GM/50 ML (PMX) 50 ML IVPB SCH (17:38)
[2019-05-15] MEDS: ATORVASTATIN 20 MG TAB PO SCH (20:37)
[2019-05-15] MEDS: INSULIN GLARGINE [LANTus] (100 UNITS/ML) SYG SC SCH (20:39)
[2019-05-15] MEDS: JAKAFI 5 MG PO SCH (20:39)
[2019-05-15] MEDS: HYDROCODONE/APAP (5/325) TAB PO PRN (20:41)
[2019-05-16] MEDS: ACCU-CHEK XX SCH (01:28)
[2019-05-16 02:05] VITALS: BP 141/66; PULSE 70; RESP 20
[2019-05-16] MEDS: LEVOTHYROXINE 75 MCG TAB PO SCH (06:05)
[2019-05-16] MEDS: INSULIN ASPART [NOVOLOG] 3 ML PEN SC SCH ×6 (07:20→17:48)
[2019-05-16 07:34] VITALS: BP 145/66; PULSE 69; RESP 19
[2019-05-16] MEDS: CHOLECALCIFEROL 2,000 UNIT CAP PO SCH (08:57)
[2019-05-16] MEDS: PYRIDOXINE 50 MG TAB PO SCH (08:57)
[2019-05-16] MEDS: CYANOCOBALAMIN 500 MCG TAB PO SCH (08:57)
[2019-05-16] MEDS: LINAGLIPTIN 5 MG TABLET PO SCH (08:57)
[2019-05-16] MEDS: MULTIVIT/CA CARB/B CMPLX/FA TAB PO SCH (08:57)
[2019-05-16] MEDS: FOLIC ACID 1 MG TAB PO SCH (08:57)
[2019-05-16] MEDS: ISOSORBIDE MONONITRATE(SR)30 MG TAB PO SCH (08:59)
[2019-05-16] MEDS: TOBRAMYCIN 0.3% 5 ML OPH LEFT EYE SCH ×4 (08:59→21:51)
[2019-05-16] MEDS: METOPROLOL (XL) 50 MG TAB PO SCH ×2 (08:59→21:52)
[2019-05-16] MEDS: AMIODARONE 200 MG TAB PO SCH (08:59)
[2019-05-16 15:00] VITALS: BP 130/60; PULSE 74; RESP 18
[2019-05-16] MEDS: SEVELAMER CARBONATE 800 MG TABLET PO SCH (17:46)
[2019-05-16 20:02] VITALS: BP 128/58; PULSE 76; RESP 20
[2019-05-16] MEDS: NACL 0.9% 3 ML SYG IV SCH (21:50)
[2019-05-16] MEDS: ATORVASTATIN 20 MG TAB PO SCH (21:52)
[2019-05-16] MEDS: INSULIN GLARGINE [LANTus] (100 UNITS/ML) SYG SC SCH (21:57)
[2019-05-16] MEDS: JAKAFI 5 MG PO SCH (21:57)
[2019-05-16] MEDS: DOCUSATE SODIUM 100 MG CAP PO PRN (22:00)
[2019-05-16] MEDS: HYDROCODONE/APAP (5/325) TAB PO PRN (22:00)
[2019-05-17] MEDS: ACCU-CHEK XX SCH (02:00)
[2019-05-17 02:29] VITALS: BP 140/63; PULSE 68; RESP 18
[2019-05-17] MEDS: LEVOTHYROXINE 75 MCG TAB PO SCH (06:23)
[2019-05-17] MEDS: INSULIN ASPART [NOVOLOG] 3 ML PEN SC SCH ×6 (07:20→17:45)
[2019-05-17 07:31] VITALS: BP 138/71; PULSE 70; RESP 17
[2019-05-17] MEDS: LINAGLIPTIN 5 MG TABLET PO SCH (08:44)
[2019-05-17] MEDS: FOLIC ACID 1 MG TAB PO SCH (08:44)
[2019-05-17] MEDS: METOPROLOL (XL) 50 MG TAB PO SCH ×2 (08:44→21:56)
[2019-05-17] MEDS: CYANOCOBALAMIN 500 MCG TAB PO SCH (08:44)
[2019-05-17] MEDS: AMIODARONE 200 MG TAB PO SCH (08:45)
[2019-05-17] MEDS: ISOSORBIDE MONONITRATE(SR)30 MG TAB PO SCH (08:45)
[2019-05-17] MEDS: PYRIDOXINE 50 MG TAB PO SCH (08:45)
[2019-05-17] MEDS: CHOLECALCIFEROL 2,000 UNIT CAP PO SCH (08:45)
[2019-05-17] MEDS: MULTIVIT/CA CARB/B CMPLX/FA TAB PO SCH (08:45)
[2019-05-17] MEDS: TOBRAMYCIN 0.3% 5 ML OPH LEFT EYE SCH ×4 (08:46→21:54)
[2019-05-17 14:11] VITALS: BP 108/54; PULSE 70; RESP 17
[2019-05-17] MEDS: SEVELAMER CARBONATE 800 MG TABLET PO SCH (17:45)
[2019-05-17 20:15] VITALS: BP 139/64; PULSE 79; RESP 17
[2019-05-17] MEDS: INSULIN GLARGINE [LANTus] (100 UNITS/ML) SYG SC SCH (21:54)
[2019-05-17] MEDS: JAKAFI 5 MG PO SCH (21:55)
[2019-05-17] MEDS: ATORVASTATIN 20 MG TAB PO SCH (21:56)
[2019-05-17] MEDS: HYDROCODONE/APAP (5/325) TAB PO PRN (23:09)
[2019-05-17] MEDS: DOCUSATE SODIUM 100 MG CAP PO PRN (23:09)
[2019-05-18] VITALS (18 sets, daily range): BP systolic 90–158; BP diastolic 39–66; PULSE 56–89; RESP 16–19
[2019-05-18] MEDS: ACCU-CHEK XX SCH (02:00)
[2019-05-18] MEDS: LEVOTHYROXINE 75 MCG TAB PO SCH (06:48)
[2019-05-18] MEDS: INSULIN ASPART [NOVOLOG] 3 ML PEN SC SCH ×6 (07:20→18:00)
[2019-05-18] MEDS: MULTIVIT/CA CARB/B CMPLX/FA TAB PO SCH (08:31)
[2019-05-18] MEDS: FOLIC ACID 1 MG TAB PO SCH (08:31)
[2019-05-18] MEDS: PYRIDOXINE 50 MG TAB PO SCH (08:31)
[2019-05-18] MEDS: ISOSORBIDE MONONITRATE(SR)30 MG TAB PO SCH (08:32)
[2019-05-18] MEDS: CYANOCOBALAMIN 500 MCG TAB PO SCH (08:32)
[2019-05-18] MEDS: LINAGLIPTIN 5 MG TABLET PO SCH (08:32)
[2019-05-18] MEDS: AMIODARONE 200 MG TAB PO SCH (08:33)
[2019-05-18] MEDS: METOPROLOL (XL) 50 MG TAB PO SCH ×2 (08:34→23:00)
[2019-05-18] MEDS: TOBRAMYCIN 0.3% 5 ML OPH LEFT EYE SCH ×4 (08:35→23:01)
[2019-05-18] MEDS: CHOLECALCIFEROL 2,000 UNIT CAP PO SCH (08:35)
[2019-05-18] MEDS: ALBUMIN HUMAN 25% 100 ML IV PRN (10:26)
[2019-05-18] MEDS: SEVELAMER CARBONATE 800 MG TABLET PO SCH (17:51)
[2019-05-18] MEDS: CEFAZOLIN 2 GM/50 ML (PMX) 50 ML IVPB SCH (17:56)
[2019-05-18] MEDS: EPOETIN ALFA-EPBX (ESRD) 10,000 UNIT/ML VIAL SC SCH (17:57)
[2019-05-18] MEDS: INSULIN GLARGINE [LANTus] (100 UNITS/ML) SYG SC SCH (22:58)
[2019-05-18] MEDS: ATORVASTATIN 20 MG TAB PO SCH (22:59)
[2019-05-18] MEDS: BALSAM PERU/CASTOR OIL 60 GM TUBE TOP SCH (22:59)
[2019-05-18] MEDS: JAKAFI 5 MG PO SCH (23:01)
[2019-05-18] MEDS: APIXABAN 5 MG TABLET PO SCH (23:04)
[2019-05-19] VITALS (18 sets, daily range): BP systolic 92–146; BP diastolic 50–70; PULSE 68–82; RESP 16–72
[2019-05-19] MEDS: ACCU-CHEK XX SCH (02:00)
[2019-05-19] MEDS: LEVOTHYROXINE 75 MCG TAB PO SCH (06:25)
[2019-05-19] MEDS: DOCUSATE SODIUM 100 MG CAP PO SCH (09:00)
[2019-05-19] MEDS: CHOLECALCIFEROL 2,000 UNIT CAP PO SCH (09:13)
[2019-05-19] MEDS: METOPROLOL (XL) 50 MG TAB PO SCH ×2 (09:13→20:22)
[2019-05-19] MEDS: CYANOCOBALAMIN 500 MCG TAB PO SCH (09:14)
[2019-05-19] MEDS: FOLIC ACID 1 MG TAB PO SCH (09:14)
[2019-05-19] MEDS: LINAGLIPTIN 5 MG TABLET PO SCH (09:14)
[2019-05-19] MEDS: APIXABAN 5 MG TABLET PO SCH ×2 (09:14→20:22)
[2019-05-19] MEDS: AMIODARONE 200 MG TAB PO SCH (09:14)
[2019-05-19] MEDS: MULTIVIT/CA CARB/B CMPLX/FA TAB PO SCH (09:15)
[2019-05-19] MEDS: PYRIDOXINE 50 MG TAB PO SCH (09:15)
[2019-05-19] MEDS: ISOSORBIDE MONONITRATE(SR)30 MG TAB PO SCH (09:15)
[2019-05-19] MEDS: INSULIN ASPART [NOVOLOG] 3 ML PEN SC SCH ×6 (09:22→17:46)
[2019-05-19] MEDS: BALSAM PERU/CASTOR OIL 60 GM TUBE TOP SCH (09:24)
[2019-05-19] MEDS: SEVELAMER CARBONATE 800 MG TABLET PO SCH (17:44)
[2019-05-19] MEDS: JAKAFI 5 MG PO SCH (20:21)
[2019-05-19] MEDS: INSULIN GLARGINE [LANTus] (100 UNITS/ML) SYG SC SCH (20:21)
[2019-05-19] MEDS: ATORVASTATIN 20 MG TAB PO SCH (20:21)
[2019-05-19] MEDS: HYDROCODONE/APAP (5/325) TAB PO PRN (21:26)
[2019-05-20] VITALS (17 sets, daily range): BP systolic 103–129; BP diastolic 51–66; PULSE 66–77; RESP 18
[2019-05-20] MEDS: ACCU-CHEK XX SCH (01:29)
[2019-05-20] MEDS: INSULIN ASPART [NOVOLOG] 3 ML PEN SC SCH ×6 (08:48→17:56)
[2019-05-20] MEDS: MULTIVIT/CA CARB/B CMPLX/FA TAB PO SCH (08:50)
[2019-05-20] MEDS: LEVOTHYROXINE 75 MCG TAB PO SCH (08:50)
[2019-05-20] MEDS: CHOLECALCIFEROL 2,000 UNIT CAP PO SCH (08:50)
[2019-05-20] MEDS: AMIODARONE 200 MG TAB PO SCH (08:50)
[2019-05-20] MEDS: APIXABAN 5 MG TABLET PO SCH ×2 (08:51→21:54)
[2019-05-20] MEDS: DOCUSATE SODIUM 100 MG CAP PO SCH (08:51)
[2019-05-20] MEDS: LINAGLIPTIN 5 MG TABLET PO SCH (08:51)
[2019-05-20] MEDS: PYRIDOXINE 50 MG TAB PO SCH (08:51)
[2019-05-20] MEDS: FOLIC ACID 1 MG TAB PO SCH (08:51)
[2019-05-20] MEDS: METOPROLOL (XL) 50 MG TAB PO SCH ×2 (08:51→21:54)
[2019-05-20] MEDS: ISOSORBIDE MONONITRATE(SR)30 MG TAB PO SCH (08:51)
[2019-05-20] MEDS: CYANOCOBALAMIN 500 MCG TAB PO SCH (08:52)
[2019-05-20] MEDS: BALSAM PERU/CASTOR OIL 60 GM TUBE TOP SCH (08:52)
[2019-05-20] MEDS ORDERED: BISACODYL 10 MG SUPP PR ONE (09:00)
[2019-05-20] MEDS ORDERED: LACTULOSE 30ML CUP PO ONE (09:00)
[2019-05-20] MEDS: ALBUMIN HUMAN 25% 100 ML IV PRN ×3 (13:55→15:39)
[2019-05-20] MEDS: CEFAZOLIN 2 GM/50 ML (PMX) 50 ML IVPB SCH (17:54)
[2019-05-20] MEDS: SEVELAMER CARBONATE 800 MG TABLET PO SCH (17:54)
[2019-05-20] MEDS: ATORVASTATIN 20 MG TAB PO SCH (21:53)
[2019-05-20] MEDS: INSULIN GLARGINE [LANTus] (100 UNITS/ML) SYG SC SCH (22:04)
[2019-05-20] MEDS: EPOETIN ALFA-EPBX (ESRD) 10,000 UNIT/ML VIAL SC SCH (22:06)
[2019-05-20] MEDS: JAKAFI 5 MG PO SCH (22:09)
[2019-05-21] MEDS: ACCU-CHEK XX SCH (02:00)
[2019-05-21 02:27] VITALS: BP 134/60; PULSE 72; RESP 18
[2019-05-21] MEDS: LEVOTHYROXINE 75 MCG TAB PO SCH (06:58)
[2019-05-21 07:45] VITALS: BP 137/65; PULSE 87; RESP 18
[2019-05-21] MEDS: INSULIN ASPART [NOVOLOG] 3 ML PEN SC SCH ×6 (08:26→18:17)
[2019-05-21] MEDS: MULTIVIT/CA CARB/B CMPLX/FA TAB PO SCH (08:27)
[2019-05-21] MEDS: CHOLECALCIFEROL 2,000 UNIT CAP PO SCH (08:30)
[2019-05-21] MEDS: DOCUSATE SODIUM 100 MG CAP PO SCH (08:30)
[2019-05-21] MEDS: AMIODARONE 200 MG TAB PO SCH (08:30)
[2019-05-21] MEDS: ISOSORBIDE MONONITRATE(SR)30 MG TAB PO SCH (08:31)
[2019-05-21] MEDS: APIXABAN 5 MG TABLET PO SCH ×2 (08:31→21:25)
[2019-05-21] MEDS: METOPROLOL (XL) 50 MG TAB PO SCH ×2 (08:32→21:25)
[2019-05-21] MEDS: FOLIC ACID 1 MG TAB PO SCH (08:32)
[2019-05-21] MEDS: LINAGLIPTIN 5 MG TABLET PO SCH (08:32)
[2019-05-21] MEDS: PYRIDOXINE 50 MG TAB PO SCH (08:33)
[2019-05-21] MEDS: CYANOCOBALAMIN 500 MCG TAB PO SCH (08:33)
[2019-05-21] MEDS: BALSAM PERU/CASTOR OIL 60 GM TUBE TOP SCH (08:35)
[2019-05-21] MEDS: LACTULOSE 30ML CUP PO SCH (12:51)
[2019-05-21 14:13] VITALS: BP 120/58; PULSE 70; RESP 18
[2019-05-21] MEDS: SEVELAMER CARBONATE 800 MG TABLET PO SCH (18:13)
[2019-05-21 19:15] VITALS: BP 124/58; PULSE 69; RESP 20
[2019-05-21] MEDS: ATORVASTATIN 20 MG TAB PO SCH (21:23)
[2019-05-21] MEDS: JAKAFI 5 MG PO SCH (21:28)
[2019-05-21] MEDS: INSULIN GLARGINE [LANTus] (100 UNITS/ML) SYG SC SCH (21:29)
[2019-05-22] VITALS (18 sets, daily range): BP systolic 98–142; BP diastolic 45–63; PULSE 63–73; RESP 18–20
[2019-05-22] MEDS: ACCU-CHEK XX SCH (02:00)
[2019-05-22] MEDS: LEVOTHYROXINE 75 MCG TAB PO SCH (06:09)
[2019-05-22] MEDS ORDERED: BISACODYL 10 MG SUPP PR PRN (08:30)
[2019-05-22] MEDS: INSULIN ASPART [NOVOLOG] 3 ML PEN SC SCH ×6 (08:44→17:38)
[2019-05-22] MEDS: FOLIC ACID 1 MG TAB PO SCH (08:45)
[2019-05-22] MEDS: CYANOCOBALAMIN 500 MCG TAB PO SCH (08:45)
[2019-05-22] MEDS: PYRIDOXINE 50 MG TAB PO SCH (08:45)
[2019-05-22] MEDS: DOCUSATE SODIUM 100 MG CAP PO SCH (08:46)
[2019-05-22] MEDS: MULTIVIT/CA CARB/B CMPLX/FA TAB PO SCH (08:49)
[2019-05-22] MEDS: AMIODARONE 200 MG TAB PO SCH (08:49)
[2019-05-22] MEDS: CHOLECALCIFEROL 2,000 UNIT CAP PO SCH (08:49)
[2019-05-22] MEDS: LINAGLIPTIN 5 MG TABLET PO SCH (08:49)
[2019-05-22] MEDS: APIXABAN 5 MG TABLET PO SCH ×2 (08:50→21:34)
[2019-05-22] MEDS: LACTULOSE 30ML CUP PO SCH (08:50)
[2019-05-22] MEDS: ISOSORBIDE MONONITRATE(SR)30 MG TAB PO SCH (08:50)
[2019-05-22] MEDS: METOPROLOL (XL) 50 MG TAB PO SCH ×2 (08:50→21:34)
[2019-05-22] MEDS: BALSAM PERU/CASTOR OIL 60 GM TUBE TOP SCH (08:51)
[2019-05-22] MEDS: ALBUMIN HUMAN 25% 100 ML IV PRN ×2 (09:08→10:45)
[2019-05-22] MEDS: L ACIDOPHIL/B LACTIS/B LONGUM CAPSULE PO SCH ×2 (09:41→21:34)
[2019-05-22] MEDS: POLYETHYLENE GLYCOL 17 GM PACKET PO SCH (09:41)
[2019-05-22] MEDS: CEFAZOLIN 1 GM/50 ML (PMX) 50 ML IVPB SCH (16:24)
[2019-05-22] MEDS: SEVELAMER CARBONATE 800 MG TABLET PO SCH (17:27)
[2019-05-22] MEDS: CEFAZOLIN 2 GM/50 ML (PMX) 50 ML IVPB SCH (17:30)
[2019-05-22] MEDS: EPOETIN ALFA-EPBX (ESRD) 10,000 UNIT/ML VIAL SC SCH (17:33)
[2019-05-22] MEDS: ATORVASTATIN 20 MG TAB PO SCH (21:34)
[2019-05-22] MEDS: INSULIN GLARGINE [LANTus] (100 UNITS/ML) SYG SC SCH (21:39)
[2019-05-22] MEDS: JAKAFI 5 MG PO SCH (21:39)
[2019-05-23 02:00] VITALS: BP 115/70; PULSE 76; RESP 18
[2019-05-23] MEDS: ACCU-CHEK XX SCH (02:00)
[2019-05-23] MEDS: INSULIN ASPART [NOVOLOG] 3 ML PEN SC SCH ×6 (07:20→17:56)
[2019-05-23 07:32] VITALS: BP 135/59; PULSE 63; RESP 14
[2019-05-23] MEDS: LEVOTHYROXINE 75 MCG TAB PO SCH (07:42)
[2019-05-23] MEDS: CHOLECALCIFEROL 2,000 UNIT CAP PO SCH (09:10)
[2019-05-23] MEDS: METOPROLOL (XL) 50 MG TAB PO SCH ×2 (09:11→20:33)
[2019-05-23] MEDS: MULTIVIT/CA CARB/B CMPLX/FA TAB PO SCH (09:11)
[2019-05-23] MEDS: CYANOCOBALAMIN 500 MCG TAB PO SCH (09:11)
[2019-05-23] MEDS: PYRIDOXINE 50 MG TAB PO SCH (09:12)
[2019-05-23] MEDS: FOLIC ACID 1 MG TAB PO SCH (09:12)
[2019-05-23] MEDS: LINAGLIPTIN 5 MG TABLET PO SCH (09:12)
[2019-05-23] MEDS: LACTULOSE 30ML CUP PO SCH (09:13)
[2019-05-23] MEDS: ISOSORBIDE MONONITRATE(SR)30 MG TAB PO SCH (09:19)
[2019-05-23] MEDS: L ACIDOPHIL/B LACTIS/B LONGUM CAPSULE PO SCH ×2 (09:19→20:33)
[2019-05-23] MEDS: DOCUSATE SODIUM 100 MG CAP PO SCH (09:20)
[2019-05-23] MEDS: APIXABAN 5 MG TABLET PO SCH ×2 (09:21→20:33)
[2019-05-23] MEDS: AMIODARONE 200 MG TAB PO SCH (09:21)
[2019-05-23] MEDS: POLYETHYLENE GLYCOL 17 GM PACKET PO SCH (09:22)
[2019-05-23] MEDS: BALSAM PERU/CASTOR OIL 60 GM TUBE TOP SCH (09:23)
[2019-05-23] MEDS ORDERED: SOD CHLORIDE 0.9% 1,000 ML IV PRN (14:52)
[2019-05-23] MEDS ORDERED: MANNITOL 25% 50 ML IV PRN (15:00)
[2019-05-23] MEDS ORDERED: ALBUMIN HUMAN 25% 100 ML IV PRN (15:00)
[2019-05-23] MEDS ORDERED: HEPARIN 1000 UNITS/ML 10 ML INJ HE SCH ×2 (15:00)
[2019-05-23] MEDS ORDERED: ALBUMIN HUMAN 25% 50 ML IV PRN (15:00)
[2019-05-23] MEDS ORDERED: ALBUMIN HUMAN 5% 250 ML IV PRN (15:00)
[2019-05-23 15:03] VITALS: BP 103/49; PULSE 68; RESP 20
[2019-05-23] MEDS ORDERED: PETROLATUM 5 GM OINT TOP ONE (16:30)
[2019-05-23] MEDS: SEVELAMER CARBONATE 800 MG TABLET PO SCH (17:52)
[2019-05-23 19:20] VITALS: BP 99/51; PULSE 74; RESP 18
[2019-05-23] MEDS: ATORVASTATIN 20 MG TAB PO SCH (20:33)
[2019-05-23] MEDS: INSULIN GLARGINE [LANTus] (100 UNITS/ML) SYG SC SCH (20:37)
[2019-05-23] MEDS: JAKAFI 5 MG PO SCH (20:38)
[2019-05-24 01:31] VITALS: BP 113/56; PULSE 70; RESP 18
[2019-05-24] MEDS: ACCU-CHEK XX SCH (02:00)
[2019-05-24 07:17] VITALS: BP 133/63; PULSE 78; RESP 18
[2019-05-24] MEDS: LEVOTHYROXINE 75 MCG TAB PO SCH (07:26)
[2019-05-24] MEDS: INSULIN ASPART [NOVOLOG] 3 ML PEN SC SCH ×4 (09:21→13:00)
[2019-05-24] MEDS: FOLIC ACID 1 MG TAB PO SCH (09:25)
[2019-05-24] MEDS: L ACIDOPHIL/B LACTIS/B LONGUM CAPSULE PO SCH (09:25)
[2019-05-24] MEDS: LINAGLIPTIN 5 MG TABLET PO SCH (09:26)
[2019-05-24] MEDS: CHOLECALCIFEROL 2,000 UNIT CAP PO SCH (09:27)
[2019-05-24] MEDS: DOCUSATE SODIUM 100 MG CAP PO SCH (09:27)
[2019-05-24] MEDS: MULTIVIT/CA CARB/B CMPLX/FA TAB PO SCH (09:28)
[2019-05-24] MEDS: AMIODARONE 200 MG TAB PO SCH (09:28)
[2019-05-24] MEDS: CYANOCOBALAMIN 500 MCG TAB PO SCH (09:28)
[2019-05-24] MEDS: ISOSORBIDE MONONITRATE(SR)30 MG TAB PO SCH (09:28)
[2019-05-24] MEDS: METOPROLOL (XL) 50 MG TAB PO SCH (09:29)
[2019-05-24] MEDS: APIXABAN 5 MG TABLET PO SCH (09:29)
[2019-05-24] MEDS: PYRIDOXINE 50 MG TAB PO SCH (09:29)
[2019-05-24] MEDS: LACTULOSE 30ML CUP PO SCH (09:30)
[2019-05-24] MEDS: POLYETHYLENE GLYCOL 17 GM PACKET PO SCH (09:30)
[2019-05-24] MEDS: BALSAM PERU/CASTOR OIL 60 GM TUBE TOP SCH (09:31)
[2019-05-24 14:10] VITALS: BP 119/58; PULSE 73; RESP 16
[2019-05-24] MEDS ORDERED: CEFAZOLIN 2 GM/50 ML (PMX) 50 ML IVPB ONE (19:30)
== END 2019-05-24 16:05 | DRG 548 ==
LOC: MS1 12:40
PROVIDERS: ADMIT Internal Medicine; ATTEND Internal Medicine
PROC: 0S9D3ZX Drainage of Left Knee Joint, Percutaneous Approach, Diagnostic (ICD-10-PCS; principal; 2019-05-08)
PROC: 5A1D70Z Performance of Urinary Filtration, Intermittent, Less than 6 Hours Per Day (ICD-10-PCS; 2019-05-08)
PROC: 3E0U3KZ Introduction of Other Diagnostic Substance into Joints, Percutaneous Approach (ICD-10-PCS; 2019-05-12)
PROC: BQ0 Imaging, Non-Axial Lower Bones, Plain Radiography (ICD-10-PCS; 2019-05-12)
PROC: 0Y9D30Z Drainage of Left Upper Leg with Drainage Device, Percutaneous Approach (ICD-10-PCS; 2019-05-15)
PROC: 30233N1 Transfusion of Nonautologous Red Blood Cells into Peripheral Vein, Percutaneous Approach (ICD-10-PCS; 2019-05-19)
DX: M00.062 Staphylococcal arthritis, left knee (principal); N18.6 End stage renal disease; D75.81 Myelofibrosis; I50.22 Chronic systolic (congestive) heart failure; I13.0 Hypertensive heart and chronic kidney disease with heart failure and stage 1 through stage 4 chronic kidney disease, or unspecified chronic kidney disease; N25.81 Secondary hyperparathyroidism of renal origin; M60.052 Infective myositis, left thigh; L03.116 Cellulitis of left lower limb; L76.32 Postprocedural hematoma of skin and subcutaneous tissue following other procedure; B95.61 Methicillin susceptible Staphylococcus aureus infection as the cause of diseases classified elsewhere; D63.8 Anemia in other chronic diseases classified elsewhere; E11.22 Type 2 diabetes mellitus with diabetic chronic kidney disease; E11.21 Type 2 diabetes mellitus with diabetic nephropathy; E87.70 Fluid overload, unspecified; E78.5 Hyperlipidemia, unspecified; E03.9 Hypothyroidism, unspecified; I73.9 Peripheral vascular disease, unspecified; I25.10 Atherosclerotic heart disease of native coronary artery without angina pectoris; I48.0 Paroxysmal atrial fibrillation; I25.2 Old myocardial infarction; K59.00 Constipation, unspecified; M48.00 Spinal stenosis, site unspecified; M10.9 Gout, unspecified; M21.372 Foot drop, left foot; M70.42 Prepatellar bursitis, left knee; Y84.1 Kidney dialysis as the cause of abnormal reaction of the patient, or of later complication, without mention of misadventure at the time of the procedure; Z99.2 Dependence on renal dialysis; Z95.1 Presence of aortocoronary bypass graft; Z95.5 Presence of coronary angioplasty implant and graft; Z87.891 Personal history of nicotine dependence; Z79.02 Long term (current) use of antithrombotics/antiplatelets; Z79.82 Long term (current) use of aspirin; Z79.4 Long term (current) use of insulin
CPT/HCPCS: 36430; 71045; 73562; 73580; 73700; 75989; 77012; 80048; 80053; 80202; 81001; 82270; 82607; 82728; 82746; 82945; 82962; 83036; 83540; 84100; 84145; 84443; 84560; 85025; 85651; 86140; 86706; 86850; 86900; 86901; 86920; 87070; 87081; 87086; 87102; 87116; 87340; 88104; 89051; 89060; 90935; 93005; 93306; 93970; 97110; 97116; 97162; 97530; C1729; J0690; J1815; J2916; J3370; J7070; J7512; P9016; P9047; Q5105; Q9967

== ENCOUNTER 2019-07-20 10:38 | Emergency (ER) | payer MEDICARE, BC ==
[~2019-07-20] VITALS: Ht 172.7 cm; Wt 77.3 kg
[~2019-07-20 10:38] MED LIST changes: -CYAN500T46 PO; +CYAN500T55 PO; +IBUP-1542 PO
[2019-07-20 10:46] VITALS: Ht 172.7 cm; Wt 77.3 kg
[2019-07-20 12:55] VITALS: BP 182/86; PULSE 68; RESP 16
== END 2019-07-20 13:01 | disposition home or self-care (01) ==
LOC: E/R 10:38
DX: M79.602 Pain in left arm (principal); I10 Essential (primary) hypertension; F17.210 Nicotine dependence, cigarettes, uncomplicated; Z79.4 Long term (current) use of insulin; Z79.01 Long term (current) use of anticoagulants; Z79.82 Long term (current) use of aspirin
CPT/HCPCS: 73060